=== PATIENT | female | born 1950 | race Hispanic/Latino ===

== ENCOUNTER 2017-09-08 09:49 | Observation (INO) | payer BC, OTHER ==
[2017-09-08 11:19] LABS: Absolute Lymphocytes (CBC) 2.1 K/uL (0.7-4.9); Absolute Neutrophil 6.5 K/uL (1.8-8.0); Basophils % 0.2 % (0-1.3); Lymphocytes % 21.9 % (15.3-44.8); MCV 90.3 fL (80-100); MPV 10.1 fL (7.6-11.3); Monocytes % 10.7 % (3.3-12.3); RBC Red Blood Cell Count 3.43 M/uL (3.86-4.86)
[2017-09-08 11:42] LABS: Albumin 3.1 g/dL (3.2-5.5); Bilirubin Total 0.3 mg/dL (0.3-1.2); Protein, Total 9.9 g/dL (6.0-8.3)
--- NOTE | 2017-09-08 13:27 | RAD REPORT ---
EXAM DESCRIPTION: CT - Abdomen Pelvis W Contrast - 09/08/2017 12:56 pm CLINICAL HISTORY: Abdominal pain. Right lower quadrant pain COMPARISON: June 2016 TECHNIQUE: Computed axial tomography of the abdomen and pelvis was obtained. 100 cc Isovue-300 is ad ministered intravenously. Oral contrast was given. All CT scans are performed using dose optimization technique as appropriate and may include automated exposure control or mA/KV adjustment according to patient size. FINDINGS: The liver, pancreas, adrenals and kidneys appear unremarkable. The spleen is small and partially calc ified perhaps secondary to an old infarction. The appendix is normal caliber. There is no evidence of diverticulitis. The gallbladder is borderline distended. A 55 millimeter mass has developed within the right iliac crest with bone destruction. The mass conta ins increased density IMPRESSION: 55 millimeter mass within the right iliac crest with bone destruction likely represents neoplasm. A much less likely consideration is that this represents a hematoma given the high density . However bony destruction would be quite unusual. MRI would be helpful for differentiation. Borderline gallbladder distention The exam was discussed with Dr. Clark
[2017-09-08] MEDS: NA CHLORIDE 0.9% 1,000 ML IV SCH (13:54)
[2017-09-08 16:18] LABS: Urine Appearance CLEAR; Urine Bilirubin NEGATIVE (NEG); Urine Blood 3+ (NEG); Urine Color YELLOW; Urine Glucose NEGATIVE (NEG); Urine Protein TRACE (NEG); Urine Specific Gravity >=1.030 (1.005-1.030); Urine Urobilinogen 0.2 mg/dL (0.2-1.0); Urine pH 5.5 (5.0-7.0)
[2017-09-08 16:21] LABS: Urine Microscopic Reflex ORDER UMIC
[2017-09-08 16:27] LABS: Urine Bacteria >50 /HPF (<20); Urine Culture Reflex Order REFLEXED
[2017-09-08] MEDS: HYDROCODONE/APAP 5/325 MG TAB PO PRN ×2 (16:30→22:06)
[2017-09-08] MEDS ORDERED: CIPROFLOXACIN HCL 500 MG TAB PO SCH (17:00)
--- NOTE | 2017-09-08 17:37 | RAD REPORT ---
EXAM DESCRIPTION: MRI - Pelvis W/Wo Cont - 09/08/2017 4:18 pm CLINICAL HISTORY: Pelvic mass COMPARISON: CT September 08, 2017 TECHNIQUE: Axial, sagittal, and coronal magnetic images of the pelvis was obtained. 14 cc MultiHance is administered intravenously. FINDINGS: A 57 millimeter enhancing mass is present within the right iliac crest destroyed bone. It has low to intermediate signal on T1 weighted sequences. Several small enhancing lesions are visualized within the femora, left acetabulum, right and left tiffanie ac bones and right pubic bone measuring less than 1 centimeter. IMPRESSION: 57 millimeter enhancing lesion within the right iliac crest destroying bone consistent w ith a metastasis. Additional smaller metastases are scattered within the pelvic bones and femora
[2017-09-08] MEDS ORDERED: Pharmacy Consult 1 EA XX PRN (19:47)
[2017-09-08] MEDS: CEFEPIME 2 GM VIAL IV SCH ×2 (20:00)
[2017-09-08] MEDS: VANCOMYCIN 1.25 GM in NA CHLORIDE 0.9% 250 ML IV SCH ×2 (20:00)
[2017-09-08] MEDS ORDERED: CEFEPIME 2 GM/200 ML BAG IV ONE (20:17)
--- NOTE | 2017-09-08 20:19 | RAD REPORT ---
EXAM DESCRIPTION: Jozef Christian (2 Views)09/08/2017 8:10 pm CLINICAL HISTORY: fever COMPARISON: June 2016 FINDINGS: The lungs appear clear of acute infiltrate. The heart is normal size IMPRESSION: No acute abnormalities displayed
[2017-09-08] MEDS ORDERED: VANCOMYCIN 1 GM/VIAL ONE (20:24)
[2017-09-08] MEDS ORDERED: NA CHLORIDE 0.9% 0 ML ONE (20:25)
[2017-09-08] MEDS ORDERED: VANCOMYCIN 500 MG/VIAL ONE (20:25)
[2017-09-08] MEDS ORDERED: NA CHLORIDE 0.9% 250 ML ONE (20:27)
[2017-09-08] MEDS ORDERED: ATORVASTATIN 80 MG TAB PO SCH (21:00)
[2017-09-09] MEDS: NA CHLORIDE 0.9% 1,000 ML IV SCH ×3 (04:10→21:42)
[2017-09-09] MEDS: PANTOPRAZOLE 40MG TABLET PO SCH (06:01)
[2017-09-09] MEDS: METOPROLOL XL 25 MG TAB PO SCH (06:01)
[2017-09-09] MEDS: HYDROCODONE/APAP 5/325 MG TAB PO PRN ×3 (06:03→18:50)
[2017-09-09] MEDS ORDERED: LOSARTAN POTASSIUM 50 MG TABLET PO SCH (09:00)
[2017-09-09] MEDS ORDERED: ASPIRIN EC 81 MG TAB PO SCH (09:00)
[2017-09-09] MEDS ORDERED: METOPROLOL XL 25 MG TAB PO SCH (09:00)
[2017-09-09] MEDS ORDERED: PNEUMOCOCCAL VACCINE 0.5 ML IMVAC ONE (09:00)
[2017-09-09] MEDS ORDERED: HOME MED 1 EA UNK (Lansoprazole [Prevacid] 30 MG) PO SCH (09:00)
[2017-09-09 09:05] LABS: Albumin 2.5 g/dL (3.2-5.5); Bilirubin Total 0.4 mg/dL (0.3-1.2); Potassium 3.6 mEq/L (3.6-5.0); Protein, Total 8.2 g/dL (6.0-8.3)
[2017-09-09] MEDS: PRASUGREL (EFFIENT) 10 MG TAB PO SCH (09:27)
[2017-09-09] MEDS: CEFEPIME/SWI 2gm 2 GM/20 ML SYR IV SCH (09:27)
[2017-09-09] MEDS: LOSARTAN POTASSIUM 50 MG TABLET PO SCH (09:28)
[2017-09-09] MEDS: ASPIRIN EC 81 MG TAB PO SCH (09:28)
[2017-09-09] MEDS: ATORVASTATIN 80 MG TAB PO SCH (09:29)
--- NOTE | 2017-09-09 13:46 | P.CNS ---
Date of Consult: 09/09/17 (Hematology/Oncology) REASON for consultation: right iliac crest mass. HPI: Pt seen today at 12 noon today. Family at bedside. Pt is a pleasant 67 yr old woman presented with worsening right hip pain. She reports gradually worsening right hip pain atleast for 3-4 weeks now, 9/10 in intensity when severe with difficulty ambulating. She reports some 10lb weight loss though intentional in the past 2 months. No fevers, chills, night sweats other than the episode of fever this week that had brought her to the ER. Mild fatigue which she feels appropriate for age. Denies any headaches, blurred vision, imbalance, neuropathy, chest pains, sob, cough, abd pain, nausea, vomiting, diarrhea. H/o chronic constipation with BM usually every other day. Former extensive smoker of about 1ppd for more than 40 years, quit 3 years ago. In the ER, CT revealed a destructive right iliac mass which was confirmed by a pelvic MRI. Additional lesions scattered in the pelvis and femurs. She feels much better with analgesia since admission. She seems to have been febrile, some positive UA as well and currently receiving antibiotics. A 14 point ROS was done and pertinent points as in HPI. PMH/ PSH: CAD s/p PCI on ASA and effient; HTN, Gastritis, meningitis, TIA, HLD. Recent mammogram 03/2017 benign. SH: Ex smoker Denies alcohol or drugs. 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 FH: Dad had colon cancer. H/o ? tubular adenoma in patient. Gets colonoscopy as per GI discretion for surveillance. EXAM: Vitas reviewed; hemodynamically stable General: Alert, mild distress on hip movement, Oriented x3; ECOG 1 HEENT: Atraumatic, Normocephalic, no pallor, no icterus, mmm Neck: Supple, no bruit, JVD not distended, No thyromegaly Respiratory: good air entry, clear to auscultation Cardiovascular: Regular rate/rhythm, Normal S1 S2, No murmurs Gastrointestinal: Normal bowel sounds, Soft and benign, Non-distended, No ascites Musculoskeletal: right hip tenderness, range of movements slightly diminishes. SLR>45 Integumentary/ nails: No rashes, no clubbing Neurological: slow cautious gait, Normal speech, Normal strength at 5/5, Normal tone, Sensation intact. Lymphatics: No axilla or inguinal lymphadenopathy. LABS reviewed. Hb ; MCV 90 WBC 9.6; left shift plt 259 Bun/cr 24/1.9 ca 9.2 TP 8.2/ Alb 2.5/ Odalis 5.7 ESR 145/ CRP 175 LDH 113 PT 14/ PTT 42/ INR 1.3 Imaging reviewed. ASSESSMENT/ RECOMMENDATIONS: 67 year old woman with right hip pain found to have a 57mm right iliac crest mass and other scattered lesions in the pelvis and femora. 1. Right iliac crest mass: Mass suspicious for malignancy which warrants further evaluation with biopsy for pathology. Possible differentials include metastasis from unknown primary, myeloma, sarcoma. Noted some hypergammaglobinemia, anemia, hyponatremia. She will need to complete staging imaging with CT chest given extensive smoking history, however can be done in next few days (IV contrast exposure for 2 procedures yesterday). Other pertinent imaging will be done as per etiology. SPEP, Qig, Serum free light chains pending. Will follow up. Will discuss with Radiology for adequate biopsy from the iliac crest mass. May need holding effient +/- ASA as per IR discretion. Pt advised to consult with her development disability specialist for the same. Further treatment recommendations, prognosis will be discussed as per biopsy results. 2. Right hip pain: controlled with Hydrocodone/ APAP and ambulating well. She was advised to take 5/325mg PO Q4-6 hrs prn pain. Educate on constipation/ resp depression risks. 3. UTI/ fevers: Follow up blood and urine cultures. Currently on antibiotics. Management as per primary team. She was advised to follow up with me as outpatient at the Cancer center on Monday09/13/17 as per her request (as she needs to attend her brother's on Monday). Plan D/w Dr Clark and house staff.
[2017-09-09 14:49] LABS: C-Reactive Protein 175.5 mg/L (<10.0)
[2017-09-09] MEDS: ENOXAPARIN 30 MG/0.3 ML SQ SCH (15:00)
[2017-09-09] MEDS ORDERED: BISACODYL 10 MG RECTAL SUPP PR PRN (17:36)
--- NOTE | 2017-09-09 18:13 | HP ---
Date of Admission: 09/08/2017 Chief Complaint: Right lower quadrant pain. History Of Present Illness: A 67-year-old female has been having intermittent right lower abdominal pain. Outpatient ultrasound was done, it was not indicative of any pathology. She has been seeing [facility]. For her abdominal pain, she was referred back for more testing. However, she started havin g fever. At this point, I asked her to come and get admitted. However, she came the next day, at wh ich point, she still had pain. There was no fever. However, in view of fever, acute illness was martha pected and the patient is admitted for observation. The patient denied any history of blood in the s tools. No history of vomiting. Past Medical History: Includes history of hypertension, hyperlipidemia, history of COPD, gastritis. Family History: Colon cancer present. History of heart disease and dementia present. Allergies: NONE. Home Medicines: Please refer to the chart. Review of Systems: No chest pain or shortness of breath. Physical Examination: General: Revealed a 67-year-old female, comfortable at rest HEENT: Negative. Neck: Supple. JVD negative. Chest: Scattered wheezes. Heart: Regular. Abdomen: Tender right lower quadrant. No palpable mass. Extremities: No edema. Laboratory Data: White count normal, hemoglobin low at 10.3, normal platelet count. Chemistry profi le; sodium 129, creatinine 1.1. Total protein 9.9, globulin 6.8. Chest x-ray negative. CAT scan, MRI of the abdomen showed mass with destruction of the pelvic bone, with multiple areas of lytic lesions. Assessment: 1.Probable metastatic disease versus myeloma. 2.Anemia, probably related to above. 3.Known coronary artery disease. 4.Hypertension. 5.Hyperlipidemia. 6.History of COPD. Plan: The patient is being hydrated and because of temperature of 101 last night, the patient is sta rted on vancomycin and cefepime. She does not look septic. So, pending the blood cultures, this leidy l be continued. The fever may even be coming from the tumor mass. Oncology consult has been done. JASON/JOSEF Voice ID: [id number]
[2017-09-09] MEDS: DOCUSATE NA 100 MG CAP PO SCH (21:40)
[2017-09-10] MEDS: HYDROCODONE/APAP 5/325 MG TAB PO PRN ×2 (03:56→10:29)
[2017-09-10] MEDS: METOPROLOL XL 25 MG TAB PO SCH (05:49)
[2017-09-10] MEDS: PANTOPRAZOLE 40MG TABLET PO SCH (05:49)
[2017-09-10] MEDS: DOCUSATE NA 100 MG CAP PO SCH (08:27)
[2017-09-10] MEDS: CEFEPIME/SWI 2gm 2 GM/20 ML SYR IV SCH (08:27)
[2017-09-10] MEDS: LOSARTAN POTASSIUM 50 MG TABLET PO SCH (08:27)
[2017-09-10] MEDS: PRASUGREL (EFFIENT) 10 MG TAB PO SCH (08:27)
[2017-09-10] MEDS: ATORVASTATIN 80 MG TAB PO SCH (08:27)
[2017-09-10] MEDS: ASPIRIN EC 81 MG TAB PO SCH (08:27)
[2017-09-10] MEDS: ENOXAPARIN 30 MG/0.3 ML SQ SCH (08:27)
[2017-09-10] MEDS: VANCOMYCIN 1.25 GM in NA CHLORIDE 0.9% 250 ML IV SCH (08:28)
[2017-09-12 22:41] LABS: Albumin, (SPE) 3.6 g/dL (3.8-4.8); Alpha-1-Globulins 0.6 g/dL (0.2-0.3); Alpha-2-Globulins 1.6 g/dL (0.5-0.9); Gamma Globulins 3.1 g/dL (0.8-1.7); INTERPRETATION REPORT
--- NOTE | 2017-09-17 18:31 | DS ---
Date of Discharge: 09/10/2017 Final Diagnoses: 1.Metastatic tumor, pelvic bone. 2.Anemia. 3.Hypertension. 4.Hyperlipidemia. 5.History of coronary artery disease. Hospital Course: This patient was admitted because of right lower quadrant pain and evidence of mass on the CAT scan. The patient after admission to the hospital also had MRI, which confirmed the mass as well as multiple lytic lesions. At this point, Hematology and Oncology Service was consulted. A s the patient was stable, it was advised that the patient could be having a biopsy done as an outpati ent. At this point, the patient also was found to have evidence of urinary tract infection. This wa s treated with discharge medications of Cipro. Laboratory Data At Admission: Hemoglobin 10.3, sodium 129, globulin 6.8, total protein 9.9. JASON/JOSEF Voice ID: [id number] Report ID: [id number]
[2017-09-20 10:46] LABS: Immunoglobulin A 72 (L); Immunoglobulin G 1184
[2017-09-20 10:49] LABS: Immunoglobulin M 29 (L)
== END 2017-09-10 13:13 | disposition home or self-care (01) ==
LOC: 2ND 10:00 → INTOOBSV 10:00
PROVIDERS: ADMIT Internal Medicine; ATTEND Internal Medicine
DX: C79.51 Secondary malignant neoplasm of bone (principal); N39.0 Urinary tract infection, site not specified; D64.9 Anemia, unspecified; I10 Essential (primary) hypertension; E78.5 Hyperlipidemia, unspecified; I25.10 Atherosclerotic heart disease of native coronary artery without angina pectoris; J44.9 Chronic obstructive pulmonary disease, unspecified
CPT/HCPCS: 36415; 71046; 72197; 74177; 80053; 81003; 81015; 82232; 82784; 83615; 84165; 85025; 85652; 86140; 86334; 87040; 87077; 87086; 87088; 87186; A9577; G0378; J0692; J1650; J7030; Q9967

== ENCOUNTER 2017-09-20 09:26 | Day surgery (SDC) | payer BC, OTHER ==
[2017-09-20] MEDS ORDERED: NA CHLORIDE 0.9% 1,000 ML ONE (10:29)
[2017-09-20] MEDS ORDERED: FENTANYL CITR 100 MCG/2 ML ONE (10:34)
[2017-09-20] MEDS ORDERED: MIDAZOLAM HCL 2 MG/2 ML INJ ONE (10:34)
[2017-09-20] MEDS ORDERED: NALOXONE 0.4 MG/ML VIAL ONE (10:35)
[2017-09-20] MEDS ORDERED: FLUMAZENIL 0.1 MG/ML (5 mL VIAL) IV ONE (10:35)
[2017-09-20 10:37] LABS: Protime INR 1.28
--- NOTE | 2017-09-20 12:32 | RAD REPORT ---
EXAM DESCRIPTION: CT - Muscle/Soft Bx - 09/20/2017 12:05 pm CLINICAL HISTORY: Right iliac crest 5.5 centimeter soft tissue mass with bone destruction COMPARISON: MRI pelvis September 08, 2017, CT abdomen and pelvis September 08, 2017 TECHNIQUE: The procedure, risks and alternatives were discussed with the patient in detail. After an swering all questions, both oral and written consent were obtained. A time-out procedure was performe d prior to biopsy or medication administration. IV access and physiologic monitors were in place. Preliminary imaging again identified the large bone destructive mass filling and expanding the latera l aspect of the right iliac crest. The mass is not substantially different from September 08 imaging. Right lateral access site was selected. The patient was pre-medicated with Versed said 1.0 milligrams IV and fentanyl 100 micrograms IV. Access site was prepped and draped in the usual sterile fashion. Skin and deeper tissues were anesthetized with 1% lidocaine. Utilizing CT guidance a 5 centimeter introducer needle was advanced. Tip was seen to penetrate the la teral margin of the mass. An 18 gauge needle was advanced through the introducer needle. A total of f our 2 centimeter long core biopsies were obtained. Cores were confirmed to have been obtained within the substance of the mass. All obtained material was given to pathology for histologic assessment. Ne edle was withdrawn and direct pressure applied to the puncture site. Sterile bandage was placed. Post biopsy imaging showed no measurable hematoma. Patient vital signs were stable throughout the procedure. There were no immediate complications. Ana ent was transferred back to same-day surgery for post biopsy monitoring. Conscious sedation time was 45 minutes. IMPRESSION: Successful CT-guided biopsy of the larger right iliac mass. All biopsy material was sarah ined for histologic assessment. No immediate complications.
== END 2017-09-20 14:50 | disposition home or self-care (01) ==
LOC: DS 09:26
PROVIDERS: ATTEND Internal Medicine
PROC: 0QB23ZX Excision of Right Pelvic Bone, Percutaneous Approach, Diagnostic (ICD-10-PCS; principal; 2017-09-20)
DX: C90.30 Solitary plasmacytoma not having achieved remission (principal); R19.07 Generalized intra-abdominal and pelvic swelling, mass and lump; C78.00 Secondary malignant neoplasm of unspecified lung
CPT/HCPCS: 20206; 36415; 85610; 85730; 88305; J2250; J2310; J3010; J7030

== ENCOUNTER 2018-01-20 15:52 | Emergency (ER) | payer BC, OTHER ==
[2018-01-20 16:40] LABS: Protime INR 1.13
[2018-01-20 16:46] LABS: Albumin 3.3 g/dL (3.4-5.0); Bilirubin Direct 0.1 mg/dL (0-0.2); Bilirubin Total 0.5 mg/dL (0.2-1.0); Magnesium 2.3 mg/dL (1.8-2.4); Potassium 3.6 mmol/L (3.5-5.1); Protein, Total 5.8 g/dL (6.4-8.2); Troponin (Emerg Dept Use Only) 0.02 ng/mL (0.0-0.045)
[2018-01-20 16:54] LABS: Absolute Lymphocytes (CBC) 1.2 K/uL (0.7-4.9); Absolute Monocytes 0.7 K/uL (0.1-1.3); Absolute Neutrophil 2.4 K/uL (1.8-8.0); Basophils % 0.3 % (0-1.3); Eosinophils % 11.9 % (0-4.4); Lymphocytes % 24.6 % (15.3-44.8); MCV 101.8 fL (80-100); MPV 13.9 fL (7.6-11.3); RBC Red Blood Cell Count 3.25 M/uL (3.86-4.86)
--- NOTE | 2018-01-20 16:58 | RAD REPORT ---
EXAM DESCRIPTION: US - Extrem Venous W Compress Lexx - 01/20/2018 4:52 pm CLINICAL HISTORY: Leg pain and swelling COMPARISON: None. TECHNIQUE: Real-time sonographic evaluation of the bilateral lower extremity common femoral, superfi cial femoral, popliteal and posterior tibial veins was performed. FINDINGS: Normal compressibility, flow augmentation, phasic flow and spontaneous flow are identified in the left and right lower extremity common femoral, superficial femoral, popliteal and posterior t ibial veins. No intraluminal filling defects seen. IMPRESSION: No DVT in either lower extremity.
--- NOTE | 2018-01-20 18:01 | RAD REPORT ---
EXAM DESCRIPTION: RAD - Chest Single View - 01/20/2018 5:12 pm CLINICAL HISTORY: Leg pain, shortness of breath COMPARISON: September 08 TECHNIQUE: AP portable chest image was obtained 1658 hours . FINDINGS: Lungs are clear. Heart and vasculature are normal. No measurable pleural effusion and no p neumothorax. No acute bony abnormality seen. Old rib trauma noted on the left. No acute aortic findin g. IMPRESSION: No acute cardiopulmonary process.
--- NOTE | 2018-01-20 18:01 | RAD REPORT ---
EXAM DESCRIPTION: CT - Chest For Pe Angio - 01/20/2018 5:38 pm CLINICAL HISTORY: Shortness of breath, cancer history COMPARISON: Chest films same date TECHNIQUE: Dynamically enhanced 3 mm thick images of the chest were obtained during administration o f approximately 150mL Isovue 370 IV contrast. Coronal and oblique MIP reconstruction images were gene rated and reviewed. Exam utilizes a protocol to evaluate the pulmonary arterial tree. All CT scans are performed using dose optimization technique as appropriate and may include automated exposure control or mA/KV adjustment according to patient size. FINDINGS: No pulmonary emboli are identified. The aorta as imaged shows no acute or suspicious finding. Heart size upper normal. No pericardial or effusion. No focal mass or consolidation. Slight motion accentuates lung markings. No pleural effusion or pleur al thickening. No mediastinal or hilar suspicious masses. No chest wall masses or abnormal axillary lymphadenopathy. IMPRESSION: No pulmonary emboli identified. No other significant or suspicious findings.
--- NOTE | 2018-01-20 18:10 | EDPHYS ---
Physician Documentation [facility] Name: Lindsey Peter Age: 67 yrs Sex: Female : 1950 Arrival Date: 01/20/2018 Time: 15:54 Bed 23 Private MD: ED Physician Rafa Gibson HPI: 01/20 16:05 This 67 yrs old Female presents to ER via Ambulatory with complaints of Feet jmm Swelling. 16:05 The patient presents with swelling. The complaints affect the right leg and left leg. jmm Onset: The symptoms/episode began/occurred gradually, 3 day(s) ago. Modifying factors: The symptoms are alleviated by nothing. the symptoms are aggravated by nothing. Associated signs and symptoms: Pertinent positives:. This is a 67 year old female with a history of Multiple myeloma presents to the ED with lower extremity swelling beginnning 3 days ago worse yesterday. Patient denies chest pain. Denies fever. Was advised by oncology to get US for concerns for DVT. . Historical: - Allergies: 15:57 No Known Allergies; la1 - PMHx: 15:57 High Cholesterol; Hypertension; meningitis; Myocardial infarction; Multiple Myeloma; la1 - Immunization history:: Adult Immunizations up to date. - Social history:: Smoking status: Patient/guardian denies using tobacco. - Ebola Screening: : No symptoms or risks identified at this time. ROS: 16:05 Constitutional: Negative for fever, chills, and weight loss, Cardiovascular: Negative jmm for chest pain, palpitations, and edema. 16:05 MS/extremity: Positive for swelling. 16:05 Neuro: Negative for weakness. 16:05 All other systems are negative. Exam: 16:05 Head/Face: atraumatic. Eyes: EOMI, no conjunctival erythema appreciated ENT: Moist jmm Mucus Membranes Neck: Trachea midline, Supple Chest/axilla: Normal chest wall appearance and motion. Cardiovascular: Regular rate and rhythm. No edema appreciated Respiratory: Normal respirations, no respiratory distress appreciated 16:05 Constitutional: The patient appears in no acute distress, alert, awake. 16:05 Musculoskeletal/extremity: bilateral pedal edema noted, full dorsalis pedis pulse noted, no erythema appreciated, NVI. 16:05 Skin: Appearance: Color: normal in color. 16:05 Neuro: Orientation: is normal, Mentation: is normal, Memory: is normal. 16:05 Psych: Behavior/mood is pleasant, cooperative. Vital Signs: 15:57 Pulse 60; Resp 16; Temp 97.8; Pulse Ox 98% on R/A; Weight 61.23 kg; Height 5 ft. 1 in. la1 (154.94 cm); 15:58 BP 177 / 56; la1 16:16 BP 145 / 50; Pulse 52; Resp 18; Pulse Ox 97% ; tl3 17:20 BP 157 / 53; Pulse 58; Resp 18; Pulse Ox 98% on R/A; tl3 18:45 BP 146 / 50; Pulse 50; Resp 18; Pulse Ox 100% on R/A; tl3 15:57 Body Mass Index 25.51 (61.23 kg, 154.94 cm) la1 MDM: 16:05 Patient medically screened. [facility] 17:08 Data reviewed: vital signs, nurses notes. [facility] 18:05 Data reviewed: lab test result(s), radiologic studies, CT scan, plain films. [facility] Counseling: I had a detailed discussion with the patient and/or guardian regarding: the historical points, exam findings, and any diagnostic results supporting the discharge/admit diagnosis, radiology results, the need for outpatient follow up, to return to the emergency department if symptoms worsen or persist or if there are any questions or concerns that arise at home. 01/20 16:14 Order name: Basic Metabolic Panel; Complete Time: 16:56 [facility] 01/20 16:14 Order name: CBC with Diff; Complete Time: 16:56 [facility] 01/20 16:14 Order name: LFT's; Complete Time: 16:56 [facility] 01/20 16:14 Order name: Magnesium; Complete Time: 16:56 [facility] 01/20 16:14 Order name: NT PRO-BNP; Complete Time: 16:56 [facility] 01/20 16:14 Order name: PT-INR; Complete Time: 16:56 [facility] 01/20 16:14 Order name: Troponin (emerg Dept Use Only); Complete Time: 16:56 [facility] 01/20 16:14 Order name: XRAY Chest (1 view); Complete Time: 18:02 [facility] 01/20 16:14 Order name: EKG; Complete Time: 16:15 [facility] 01/20 16:14 Order name: Cardiac monitoring; Complete Time: 16:25 [facility] 01/20 16:14 Order name: EKG - Nurse/Tech; Complete Time: 16:55 [facility] 01/20 16:14 Order name: IV Saline Lock; Complete Time: 16:25 [facility] 01/20 16:14 Order name: US Extremity Venous W Compression Lexx; Complete Time: 17:09 [facility] 01/20 17:21 Order name: CT Chest For PE Angio; Complete Time: 18:02 [facility] 01/20 16:14 Order name: Labs collected and sent; Complete Time: 16:25 [facility] 01/20 16:14 Order name: O2 Per Protocol; Complete Time: 16:25 [facility] 01/20 16:14 Order name: O2 Sat Monitoring; Complete Time: 16:25 [facility] Administered Medications: No medications were administered Disposition: 01/20/18 18:09 Discharged to Home. Impression: Edema, unspecified. - Condition is Stable. - Discharge Instructions: Peripheral Edema. - Medication Reconciliation Form, Thank You Letter, Antibiotic Education, Prescription Opioid Use form. - Follow up: Private Physician; When: 2 - 3 days; Reason: Recheck today's complaints, Continuance of care, Re-evaluation by your physician. Addendum: 01/22/2018 07:18 Co-signature as Attending Physician, Rafa Gibson MD I agree with the assessment and c coppola plan of care. Signatures: Dispatcher [employer] Rafa Blanchard MD MD cha Mickail, Joel, PA PA Aquiles Atwood RN RN la1 Rajani Rader, RN RN tl3 Corrections: (The following items were deleted from the chart) 01/20 19:08 18:09 01/20/2018 18:09 Discharged to Home. Impression: Edema, unspecified. Condition is tl3 Stable. Forms are Medication Reconciliation Form, Thank You Letter, Antibiotic Education, Prescription Opioid Use. Follow up: Private Physician; When: 2 - 3 days; Reason: Recheck today's complaints, Continuance of care, Re-evaluation by your physician. [facility]
--- NOTE | 2018-01-20 18:10 | ER ---
Nurse's Notes [facility] Name: Lindsey Peter Age: 67 yrs Sex: Female : 1950 Arrival Date: 01/20/2018 Time: 15:54 Bed 23 Private MD: Diagnosis: Edema, unspecified Presentation: 01/20 15:56 Presenting complaint: Patient states: I am a cancer patient and have been having la1 swelling in both of my lower legs for 3 days and my cancer doctor told me to come in. Transition of care: patient was not received from another setting of care. Onset of symptoms was January 20, 2018. Risk Assessment: Do you want to hurt yourself or someone else? Patient reports no desire to harm self or others. Initial Sepsis Screen: Does the patient meet any 2 criteria? No. Patient's initial sepsis screen is negative. Does the patient have a suspected source of infection? No. Patient's initial sepsis screen is negative. Care prior to arrival: None. 15:56 Method Of Arrival: Ambulatory la1 15:56 Acuity: IVANA 3 la1 Historical: - Allergies: 15:57 No Known Allergies; la1 - PMHx: 15:57 High Cholesterol; Hypertension; meningitis; Myocardial infarction; Multiple Myeloma; la1 - Immunization history:: Adult Immunizations up to date. - Social history:: Smoking status: Patient/guardian denies using tobacco. - Ebola Screening: : No symptoms or risks identified at this time. Screenin:16 Abuse screen: Denies threats or abuse. Nutritional screening: No deficits noted. tl3 Tuberculosis screening: No symptoms or risk factors identified. Fall Risk None identified. Assessment: 16:16 General: Appears in no apparent distress. uncomfortable, slender, well groomed, well tl3 developed, well nourished, Behavior is calm, cooperative, appropriate for age. Pain:. Neuro: Level of Consciousness is awake, alert, obeys commands, Oriented to person, place, time, situation, Appropriate for age. Cardiovascular: Reports bilateral swelling to ankles and lower legs since for the last three days Patient's skin is warm and dry. Respiratory: Reports shortness of breath only slightly while lying flat and talking on the phone with her daughter Airway is patent Respiratory effort is even, unlabored, Respiratory pattern is regular, symmetrical, Breath sounds are clear bilaterally. GI: No deficits noted. No signs and/or symptoms were reported involving the gastrointestinal system. : No deficits noted. No signs and/or symptoms were reported regarding the genitourinary system. EENT: No deficits noted. No signs and/or symptoms were reported regarding the EENT system. Derm: No deficits noted. No signs and/or symptoms reported regarding the dermatologic system. Musculoskeletal: No deficits noted. No signs and/or symptoms reported regarding the musculoskeletal system. 17:20 Reassessment: Patient appears in no apparent distress at this time. No changes from tl3 previously documented assessment. Patient and/or family updated on plan of care and expected duration. Pain level reassessed. Patient is alert, oriented x 3, equal unlabored respirations, skin warm/dry/pink. 18:45 Reassessment: Patient appears in no apparent distress at this time. No changes from tl3 previously documented assessment. Patient and/or family updated on plan of care and expected duration. Pain level reassessed. Patient is alert, oriented x 3, equal unlabored respirations, skin warm/dry/pink. Vital Signs: 15:57 Pulse 60; Resp 16; Temp 97.8; Pulse Ox 98% on R/A; Weight 61.23 kg; Height 5 ft. 1 in. la1 (154.94 cm); 15:58 BP 177 / 56; la1 16:16 BP 145 / 50; Pulse 52; Resp 18; Pulse Ox 97% ; tl3 17:20 BP 157 / 53; Pulse 58; Resp 18; Pulse Ox 98% on R/A; tl3 18:45 BP 146 / 50; Pulse 50; Resp 18; Pulse Ox 100% on R/A; tl3 15:57 Body Mass Index 25.51 (61.23 kg, 154.94 cm) la1 ED Course: 15:54 Patient arrived in ED. tw3 15:57 Triage completed. la1 15:57 Arm band placed on right wrist. la1 16:02 Johnson Rios PA is PHCP. [facility] 16:02 Rafa Gibson MD is Attending Physician. [facility] 16:15 Rajani Rader, FLORES is Primary Nurse. tl3 16:16 Patient has correct armband on for positive identification. Bed in low position. Call tl3 light in reach. Side rails up X 1. Adult w/ patient. Pulse ox on. NIBP on. Door closed. Warm blanket given. Pillow given. 16:16 No provider procedures requiring assistance completed. Initial lab(s) drawn, by oh, tl3 sent to lab. Inserted saline lock: 20 gauge in right antecubital area, using aseptic technique. Blood collected. 16:43 US Extremity Venous W Compression Lexx Sent. tl3 16:50 Ultrasound completed. Patient tolerated well. Notified ED Physician johnson . sg3 16:50 US Extremity Venous W Compression Lexx In Process Unspecified. EDMS 16:54 EKG done, by ED staff, reviewed by Johnson LAM. jb1 17:13 XRAY Chest (1 view) In Process Unspecified. EDMS 17:33 CT completed. Patient moved to CT via stretcher. Patient moved back from CT. cw1 17:38 CT Chest For PE Angio In Process Unspecified. EDMS 18:45 IV discontinued, intact, bleeding controlled, No redness/swelling at site. Pressure tl3 dressing applied. Administered Medications: No medications were administered Outcome: 18:09 Discharge ordered by . kimberly 18:45 Discharged to home ambulatory. tl3 18:45 Condition: good 18:45 Discharge instructions given to patient, Instructed on discharge instructions, follow up and referral plans. Demonstrated understanding of instructions, follow-up care. 19:08 Patient left the ED. tl3 Signatures: Dispatcher [employer] EDBentley Cardenas jb1 Johnson Rios PA PA jmm Woodley, Crystal cw1 Aquiles Alvarez, RN RN la1 Susanna Avila Sarah sg3 Rajani Rader, RN RN tl3
--- NOTE | 2018-01-22 10:13 | EKG ---
Test Date: 2018-01-20 Test Time: 16:52:25 [employer]: TREVER MEASUREMENT RESULTS: Intervals: Rate: 48 VT: 162 QRSD: 98 QT: 494 QTc: 441 [place]: P: 45 VT: 162 QRS: 61 T: 57 INTERPRETIVE STATEMENTS: Marked sinus bradycardia Abnormal ECG Compared to ECG 06/11/2016 05:27:56 Sinus rhythm no longer present ST (T wave) deviation no longer present Electronically Signed On 01-22-18 10:12:50 CDT by Allan Mullins
== END 2018-01-20 19:08 | disposition home or self-care (01) ==
LOC: ER 15:52
DX: R60.0 Localized edema (principal); I10 Essential (primary) hypertension; Z85.79 Personal history of other malignant neoplasms of lymphoid, hematopoietic and related tissues
CPT/HCPCS: 36415; 71045; 71275; 80048; 80076; 83735; 83880; 84484; 85025; 85610; 93005; 93970; 99284; Q9967

== ENCOUNTER 2019-04-27 17:42 | Emergency (ER) | payer OTHER ==
[2019-04-27 18:52] LABS: Absolute Lymphocytes (CBC) 1.3 K/uL (0.7-4.9); Basophils % 0.5 % (0-1.3); Lymphocytes % 21.4 % (15.3-44.8); RBC Red Blood Cell Count 3.88 M/uL (3.86-4.86)
[2019-04-27 19:08] LABS: Albumin 3.8 g/dL (3.4-5.0); Bilirubin Total 0.5 mg/dL (0.2-1.0); Potassium 3.7 mmol/L (3.5-5.1); Protein, Total 7.6 g/dL (6.4-8.2)
[2019-04-27] MEDS ORDERED: NA CHLORIDE 0.9% 2,000 ML ONE (19:09)
[2019-04-27] MEDS ORDERED: CEFTRIAXONE/SWI 1gm 1 GM/10 ML SYR ONE (19:09)
[2019-04-27 19:38] LABS: Urine Bacteria <20 /HPF (<20)
--- NOTE | 2019-04-27 19:40 | RAD REPORT ---
EXAM DESCRIPTION: Jozef Christian (2 Views)04/27/2019 7:04 pm CLINICAL HISTORY: fever COMPARISON: 2018 FINDINGS: The lungs appear clear of acute infiltrate. The heart is normal size Old rib fractures IMPRESSION: No acute abnormalities displayed
[2019-04-27] MEDS ORDERED: ACETAMINOPHEN 325 MG TABLET ONE (20:14)
--- NOTE | 2019-04-27 20:24 | ER ---
Nurse's Notes [facility] Name: Lindsey Peter Age: 68 yrs Sex: Female : 1950 Arrival Date: 04/27/2019 Time: 17:47 Bed 26 Private MD: Diagnosis: Acute pharyngitis Presentation: 04/27 18:25 Presenting complaint: Patient states: Fever, sore throat and cough since last night. aj1 Transition of care: patient was not received from another setting of care. Onset of symptoms was 2019. Risk Assessment: Do you want to hurt yourself or someone else? Patient reports no desire to harm self or others. Initial Sepsis Screen: Does the patient meet any 2 criteria? Temp <36.0*C (96.8*F)) or > 38.3*C (100.9*F). HR > 90 bpm. Yes Does the patient have a suspected source of infection? Yes: Productive cough/pneumonia If YES to both, name of provider notified: Rishi LAM. Care prior to arrival: None. 18:25 Method Of Arrival: Ambulatory aj1 18:25 Acuity: IVANA 2 aj1 Triage Assessment: 18:27 General: Appears in no apparent distress. comfortable, Behavior is calm, cooperative, aj1 appropriate for age. Pain: Denies pain. Historical: - Allergies: 18:27 No Known Allergies; aj1 - Home Meds: 18:27 atorvastatin 80 mg Oral tab 1 tab once daily [Active]; aspirin 81 mg Oral chew 1 tab aj1 once daily [Active]; Revlimid oral oral [Active]; - PMHx: 18:27 High Cholesterol; Hypertension; meningitis; multiple myeloma; Myocardial infarction; aj1 CVA; - Immunization history:: Flu vaccine is not up to date. - Social history:: Smoking status: Patient/guardian denies using tobacco. - Ebola Screening: : Patient denies travel to an Ebola-affected area in the 21 days before illness onset. Screenin:28 Abuse screen: Denies threats or abuse. Denies injuries from another. Nutritional aj1 screening: No deficits noted. Tuberculosis screening: No symptoms or risk factors identified. 21:10 Fall Risk None identified. aj1 Assessment: 18:28 General: Appears in no apparent distress. comfortable, Behavior is calm, cooperative, aj1 appropriate for age. Pain: Denies pain. Neuro: Level of Consciousness is awake, alert, obeys commands, Oriented to person, place, time, situation. Cardiovascular: Patient's skin is warm and dry. Respiratory: Reports cough that is hacking, persistent Airway is patent Respiratory effort is even, unlabored, Respiratory pattern is regular, symmetrical. GI: No signs and/or symptoms were reported involving the gastrointestinal system. : No signs and/or symptoms were reported regarding the genitourinary system. EENT: Reports nasal congestion nasal discharge sore throat. Derm: No signs and/or symptoms reported regarding the dermatologic system. Skin is pink, warm \T\ dry. normal. Musculoskeletal: No signs and/or symptoms reported regarding the musculoskeletal system. Circulation, motion, and sensation intact. 19:30 Reassessment: Patient appears in no apparent distress at this time. No changes from aj1 previously documented assessment. Patient and/or family updated on plan of care and expected duration. Pain level reassessed. Patient is alert, oriented x 3, equal unlabored respirations, skin warm/dry/pink. 20:30 Reassessment: Patient appears in no apparent distress at this time. No changes from aj1 previously documented assessment. Patient and/or family updated on plan of care and expected duration. Pain level reassessed. Patient is alert, oriented x 3, equal unlabored respirations, skin warm/dry/pink. Vital Signs: 18:27 BP 166 / 66; Pulse 92; Resp 18; Temp 102.4(O); Pulse Ox 99% on R/A; Weight 60.78 kg [facility] (R); Height 5 ft. 1 in. (154.94 cm) (R); Pain 0/10; 19:18 BP 154 / 61; Pulse 79; Resp 16; Temp 103.1(O); Pulse Ox 100% ; lt1 21:10 BP 157 / 65; Pulse 78; Resp 18; Temp 100.9; Pulse Ox 100% on R/A; aj1 18:27 Body Mass Index 25.32 (60.78 kg, 154.94 cm) [facility] ED Course: 17:47 Patient arrived in ED. mr 18:06 Rishi Rios PA is PHCP. [facility] 18:06 Donna Fabian MD is Attending Physician. [facility] 18:20 Coby Baeza, RN is Primary Nurse. aj1 18:26 Triage completed. aj1 18:27 Arm band placed on Patient placed in an exam room. aj1 18:28 Patient has correct armband on for positive identification. aj1 18:28 No provider procedures requiring assistance completed. aj1 18:39 First set of blood cultures drawn by me. lt1 18:46 Initial lab(s) drawn, by me, sent to lab. Flu and/or RSV swab sent to lab. Strep swab lt1 sent to lab. Inserted saline lock: 22 gauge in right antecubital area, using aseptic technique. 18:46 Strep Sent. lt1 18:46 Flu Sent. lt1 18:47 Procalcitonin Sent. lt1 18:47 Lactate Sent. lt1 18:47 CMP Sent. lt1 18:47 CBC with Diff Sent. lt1 19:01 Chest Pa And Lat (2 Views) XRAY In Process Unspecified. EDMS 19:19 Blood Culture Adult (2) Sent. lt1 19:20 Urine Microscopic Only Sent. lt1 21:10 IV discontinued, intact, bleeding controlled, No redness/swelling at site. Pressure aj1 dressing applied. Administered Medications: 19:09 Drug: NS 0.9% (30 ml/kg) 30 ml/kg Route: IV; Rate: bolus; Site: right antecubital; aj1 21:11 Follow up: IV Status: Completed infusion; IV Intake: 1000ml aj1 19:19 Drug: Rocephin 1 grams Route: IV; Rate: calculated rate; Site: right antecubital; aj1 20:17 Drug: Tylenol 650 mg Route: PO; aj1 21:11 Follow up: Response: No adverse reaction aj1 Intake: 21:11 IV: 1000ml; Total: 1000ml. aj Outcome: 20:23 Discharge ordered by . [facility] 21:11 Discharged to home ambulatory. aj1 21:11 Condition: good 21:11 Discharge instructions given to patient, Instructed on discharge instructions, follow up and referral plans. medication usage, Demonstrated understanding of instructions, follow-up care, medications, Prescriptions given X 1. 21:11 Patient left the ED. aj1 Addendum: 04/30/2019 16:36 Addendum: Culture Results: Positive urine culture. Phone call Attempt #1 Pt states a a5 symptoms have improved, denies urinary symptoms, verbalizes understanding to follow-up with PCP. Signatures: Dispatcher [employer] Coby Hilton RN RN aj1 Rishi Rios PA PA jmm Rivera, Mary mr Calderon, Audri RN RN aa5 Beatris Bradford 1 Corrections: (The following items were deleted from the chart) 04/27 18:59 18:25 Acuity: IVANA 3 aj1 aj1
--- NOTE | 2019-04-27 20:24 | EDPHYS ---
[facility] Name: Lindsey Peter Age: 68 yrs Sex: Female : 1950 Arrival Date: 04/27/2019 Time: 17:47 Bed 26 Private MD: ED Physician Donna Fabian HPI: 04/27 18:23 This 68 yrs old Female presents to ER via Unassigned with complaints of Flu jmm Symptoms. 18:23 The patient or guardian reports cough, flu symptoms. Onset: The symptoms/episode jmm began/occurred gradually, 1 day(s) ago. Modifying factors: The symptoms are alleviated by nothing. the symptoms are aggravated by nothing. Associated signs and symptoms: Pertinent positives: fever, sore throat. This is a 68 year old female with a history of multiple myeloma that presents to the ED with complaints of low grade fever, sore throat beginning yesterday. Patient states she was recently exposed to the flu. Patient currently takes oral chemotherapeutics. . Historical: - Allergies: 18:27 No Known Allergies; aj1 - Home Meds: 18:27 atorvastatin 80 mg Oral tab 1 tab once daily [Active]; aspirin 81 mg Oral chew 1 tab aj1 once daily [Active]; Revlimid oral oral [Active]; - PMHx: 18:27 High Cholesterol; Hypertension; meningitis; multiple myeloma; Myocardial infarction; aj1 CVA; - Immunization history:: Flu vaccine is not up to date. - Social history:: Smoking status: Patient/guardian denies using tobacco. - Ebola Screening: : Patient denies travel to an Ebola-affected area in the 21 days before illness onset. ROS: 18:23 Constitutional: Positive for body aches, fever. jmm 18:23 ENT: Positive for sore throat. 18:23 Respiratory: Positive for cough. 18:23 All other systems are negative. Exam: 18:23 Constitutional: This is a well developed, well nourished patient who is awake, alert, jmm and in no acute distress. Head/Face: atraumatic. Eyes: EOMI, no conjunctival erythema appreciated 18:23 Neck: Trachea midline, Supple Chest/axilla: Normal chest wall appearance and motion. Cardiovascular: Regular rate and rhythm. No edema appreciated Respiratory: Normal respirations, no respiratory distress appreciated Abdomen/GI: Non distended, soft Back: Normal ROM Skin: General appearance color normal MS/ Extremity: Moves all extremities, no obvious deformities appreciated, no edema noted to the lower extremities Neuro: Awake and alert, normal gait Psych: Behavior is normal, Mood is normal, Patient is cooperative and pleasant 18:23 ENT: Posterior pharynx: erythema, that is mild. Vital Signs: 18:27 BP 166 / 66; Pulse 92; Resp 18; Temp 102.4(O); Pulse Ox 99% on R/A; Weight 60.78 kg 1 (R); Height 5 ft. 1 in. (154.94 cm) (R); Pain 0/10; 19:18 BP 154 / 61; Pulse 79; Resp 16; Temp 103.1(O); Pulse Ox 100% ; lt1 21:10 BP 157 / 65; Pulse 78; Resp 18; Temp 100.9; Pulse Ox 100% on R/A; aj1 18:27 Body Mass Index 25.32 (60.78 kg, 154.94 cm) 1 MDM: 18:16 Patient medically screened. [facility] 20:22 Data reviewed: vital signs, nurses notes. Counseling: I had a detailed discussion with kimberly the patient and/or guardian regarding: the historical points, exam findings, and any diagnostic results supporting the discharge/admit diagnosis, lab results, radiology results, the need for outpatient follow up, to return to the emergency department if symptoms worsen or persist or if there are any questions or concerns that arise at home. ED course: Patient is alert and non toxic in appearance in the ED. Patient advised to follow up with PCP and otherwise given strict return precautions. Patient understood and agrees with the plan of care. . 04/27 18:17 Order name: CBC with Diff [facility] 04/27 18:17 Order name: CMP [facility] 04/27 18:17 Order name: Lactate; Complete Time: 19:24 [facility] 04/27 18:17 Order name: Procalcitonin; Complete Time: 19:36 [facility] 04/27 18: Order name: Flu; Complete Time: 19:24 [facility] 04/27 18:17 Order name: Strep; Complete Time: 19:24 [facility] 04/27 18:17 Order name: Urine Microscopic Only; Complete Time: 19:43 [facility] 04/27 18:17 Order name: Chest Pa And Lat (2 Views) XRAY; Complete Time: 19:43 [facility] 04/27 18:18 Order name: CBC with Automated Diff; Complete Time: 19:24 [facility] 04/27 18:18 Order name: Comprehensive Metabolic Panel; Complete Time: 19:24 [facility] 04/27 18:54 Order name: Blood Culture Adult (2) [facility] 04/27 19:08 Order name: Throat Culture [facility] 04/27 19:39 Order name: Urine Culture [facility] 04/27 20:28 Order name: Urine Dipstick--Ancillary (enter results); Complete Time: 21:32 ar5 04/27 18:17 Order name: Saline Lock; Complete Time: 18:46 [facility] 04/27 18:17 Order name: Urine Dipstick-Ancillary (obtain specimen); Complete Time: 19:20 [facility] Administered Medications: 19:09 Drug: NS 0.9% (30 ml/kg) 30 ml/kg Route: IV; Rate: bolus; Site: right antecubital; [facility] 21:11 Follow up: IV Status: Completed infusion; IV Intake: 1000ml [facility] 19:19 Drug: Rocephin 1 grams Route: IV; Rate: calculated rate; Site: right antecubital; [facility] 20:17 Drug: Tylenol 650 mg Route: PO; [facility] 21:11 Follow up: Response: No adverse reaction aj1 Disposition: 04/28 15:21 Co-signature as Attending Physician, Donna Fabian MD. ma2 Disposition: 04/27/19 20:23 Discharged to Home. Impression: Acute pharyngitis. - Condition is Stable. - Discharge Instructions: Pharyngitis. - Prescriptions for cefdinir 300 mg Oral capsule - take 1 capsule by ORAL route every 12 hours; 20 capsule. Tamiflu 75 mg Oral Capsule - take 1 tablet by ORAL route every 12 hours for 5 days; 10 tablet. - Medication Reconciliation Form, Thank You Letter, Antibiotic Education, Prescription Opioid Use form. - Follow up: Private Physician; When: 2 - 3 days; Reason: Recheck today's complaints, Continuance of care, Re-evaluation by your physician. Signatures: [facility] Coby Baeza RN RN aj1 Rishi Rios PA PA Donna Ardon MD MD ma2 Corrections: (The following items were deleted from the chart) 04/27 21:11 20:23 04/27/2019 20:23 Discharged to Home. Impression: Acute pharyngitis. Condition is aj1 Stable. Forms are Medication Reconciliation Form, Thank You Letter, Antibiotic Education, Prescription Opioid Use. Follow up: Private Physician; When: 2 - 3 days; Reason: Recheck today's complaints, Continuance of care, Re-evaluation by your physician. kimberly
[2019-04-27 20:42] LABS: Urine Blood 1+ (NEG); Urine Glucose NEGATIVE (NEG); Urine Protein NEGATIVE (NEG); Urine pH 7.5 (5.0-7.0)
[2019-04-27 21:42] VITALS: O2SAT 100
[2019-04-27 21:44] VITALS: BP 157/65; TEMP 100.9
== END 2019-04-27 21:11 | disposition home or self-care (01) ==
LOC: ER 17:42
DX: J02.9 Acute pharyngitis, unspecified (principal); I10 Essential (primary) hypertension; E78.00 Pure hypercholesterolemia, unspecified; Z79.82 Long term (current) use of aspirin; Z85.89 Personal history of malignant neoplasm of other organs and systems
CPT/HCPCS: 96361; 87040 ×2; 87070; 87088; 85025; 87086; 36415; 87081; 83605; 87077; 87186; 80053; 84145; 87804 ×2; 71046; 96374; 99284; J0696; J7030; 81003; 81015; 96365; 96366; 96375

== ENCOUNTER 2020-03-17 06:38 | Day surgery (SDC) | payer OTHER ==
[2020-03-13 11:30] VITALS: BMI 26.9
[2020-03-13 12:28] LABS: Absolute Lymphocytes (CBC) 2.2 K/uL (0.7-4.9); Basophils % 0.5 % (0-1.3); Hematocrit 38.6 % (36.0-45.0); MPV 12.1 fL (7.6-11.3); RBC Red Blood Cell Count 3.82 M/uL (3.86-4.86)
[2020-03-13 12:31] LABS: Potassium 3.7 mmol/L (3.5-5.1)
[2020-03-13 12:34] LABS: Protime INR 1.06
--- NOTE | 2020-03-13 12:34 | RAD REPORT ---
EXAM DESCRIPTION: RAD - Chest Pa And Lat (2 Views) - 03/13/2020 11:52 am CLINICAL HISTORY: Preop chest, pending cardiac catheterization COMPARISON: April 2019 TECHNIQUE: Frontal and lateral views of the chest were obtained. FINDINGS: The lungs are clear. Interstitial pattern matches comparison. Heart size is normal and ce ntral vasculature is within normal limits. Old rib trauma noted on the left. No pleural effusion or p neumothorax seen. No acute bony finding noted. No aortic abnormality. IMPRESSION: No acute cardiopulmonary process. No significant change from comparison study.
[2020-03-13 12:56] LABS: Platelet Estimate ADEQ; White Blood Cell Scan 0 (OK)
[2020-03-13 12:57] LABS: Blood Morphology Comment NOT SEEN (NOT SEEN)
--- NOTE | 2020-03-14 20:04 | EKG ---
Test Date: 2020-03-13 Test Time: 11:52:03 Cad Designer: MONSE MEASUREMENT RESULTS: Intervals: Rate: 57 [place]: 158 QRSD: 94 QT: 448 QTc: 436 [place]: P: 51 [place]: 158 QRS: 46 T: 115 INTERPRETIVE STATEMENTS: Poor data quality, interpretation may be adversely affected Sinus bradycardia T wave abnormality, consider anterolateral ischemia Abnormal ECG Compared to ECG 01/20/2018 16:52:25 T-wave abnormality now present Possible ischemia now present Electronically Signed On 03-14-20 20:01:30 SHOE MAKER by Aashish Machado
--- OUTSIDE RECORDS SUMMARY | 2020-03-17 06:42 | XMS REPORT | Continuity of Care Document ---
:1950 Author Organization [facility] t Address [address] [place] [address] Care Team Providers Name Role Phone Dinh SINGH Primary Care Physician Unavailable SYSTEM, NOT IN Attending Clinician Unavailable Dinh Singh MD Attending Clinician Macie Ortega MD Attending Clinician Payers Payer Name Policy Type Policy Effective Date Expiration Date Sour ce Number [employer] MEDICARE [id number] 2018 MD Stewart thanh [facility] 00:00:00 MEDICARE [id number]-PresentMedicare Problems Condition Condition Condition Status Onset Resolution Last Treating Co mments Source Name Details Category Date Date Treatment Clinician Date 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 in Myeloma in 08-20 Fa clyde remission Remission 00:00: Prac tic 00 e Hyperchole Hyperchole Problem Active V illage sterolemia sterolemia - Fa clyde 00:00: Practic 00 e Glaucoma Glaucoma Problem Active Corley ge -13 Family 00:00: Practic 00 e Essential Essential Problem Active Royal william hypertensi Hypertensi -13 Fa clyde on on 00:00: Practic 00 e 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 Family History Family Member Diagnosis Comments Start Date Stop Date Source Natural father -Gastrointestinal MD Gibson (Esophagus, Liver, Bile Duct, Stomach, Pancreas, Colon, Rectum, Anus Natural mother Coronary heart disease (CHD) MD Gibson Natural mother Diabetes MD Franck lizama Natural mother Hypertension Pierce son Natural mother Stroke MD Franck lizama Social History Social Habit Start Date Stop Date Quantity Comments Source Sex Assigned At MD Singletary on Exposure to Not sure MD Gibson SARS-CoV-2 (event) Cigarettes smoked 2020-02-28 2020-02-28 MD Terry andrade current (pack per 00:00:00 00:00:00 day) - Reported Cigarette pack-years 2020-02-28 2020-02-28 MD Sanderson ndersthanh 00:00:00 00:00:00 Tobacco use and 2020-02-28 2020-02-28 Never used MD Singletary on exposure 00:00:00 00:00:00 Alcohol intake 2020-02-28 2020-02-28 Current MD Franck lizama 00:00:00 00:00:00 non-drinker of alcohol (finding) History of tobacco 1970 2014-12-19 Current smoker MD Gibson use 00:00:00 00:00:00 Smoking Status Start Date Stop Date Source Former smoker 2020-02-28 00:00:00 2020-02-28 00:00:00 Pierce son Medications Ordered Filled Start Stop Current Ordering Indication Dosage Frequency Signature Comments Components Source Medication Medication Date Date Medication? Clinician (SIG) Name Name lenalidomid 2019-04 Yes multiple 10mg Take 10 mg MD gonsalez 1-20 myeloma by mouth. Anderso (REVLIMID) 16:36: For 21 n capsule 10 10 days then mg 7 days off bimatoprost 2019-04 Yes 1[drp] Administer MD (LUMJOSE) 1-20 1 drop to Pierce so 0.01% 15:32: both eyes n ophthalmic 52 at drops bedtime. cholecalcif 2019-04 Yes 400U Take 400 MD imer, 1-20 Units by Anderso vitamin D3, 15:32: mouth n 400 units 52 twice tablet daily. calcium 2019-04 Yes 1{tbl} Take 1 MD carbonate-v 1-20 tablet by And erso itamin D3 15:32: mouth n (CALCIUM 52 twice 500 WITH D) daily. 500 mg(1,250mg) -400 unit tab atorvastati 2019-04 Yes 80mg Take 80 mg MD alda (LIPITOR) 1-20 by mouth Terry rso 80 mg 15:32: daily. n tablet 52 LORazepam 2019-04- No Multiple 1mg Take 1 M D (Ativan) 1 16 20 myeloma tablet (1 Anderso mg tablet 00:00: 05:59 mg) by n 00 :00 mouth once for 1 dose 15 minutes prior to MRI sulfamethox 2019- No Multiple 1{tbl} Take 1 MD azole-trime 2-20 -20 myeloma tablet by Anderso thoprim 00:00: 00:00 mouth 3 n (BACTRIM 00 :00 (three) DS) 800 times a mg-160 mg week per tablet Monday, Monday and Monday. oxyCODONE 2019- No Multiple 10mg Take 2 M D (ROXICODONE 2-19 11-20 myeloma tablets A nderso ) 5 mg 00:00: 00:00 (10 mg) by n immediate 00 :00 mouth release every 4 tablet (four) hours as needed for moderate pain or severe pain. chlorhexidi 2019- No Multiple 15mL Swish and MD diaz (PAROEX) 10-19 myeloma spit 15 mL Anderso 0.12% 00:00: 00:00 twice n mouthwash 00 :00 daily. (alcohol-fr Swish and ee) spit after 30 seconds fluoride, 2019- No Multiple Apply to sodium, 10-19-20 myeloma teeth Anderso (PREVIDENT) 00:00: 00:00 daily. n 1.1 % 00 :00 dental cream senna-docus 2019- No Multiple 1{tbl} Take 1 ate 626 11-20 myeloma tablet by Hayder parker (SENOKOT-S) 00:00: 00:00 mouth 2 n 8.6 mg-50 00 :00 (two) mg tablet times a day as needed for constipati on. Aspir-81 mg Aspir-81 mg No 1 Q1D Aspir-81 Village tablet,dayana tablet,dayana mg F amily yed release yed release tablet,del Practic Take 1 Take 1 ayed e tablet tablet release every day every day Take 1 by oral by oral tablet route. route. every day by oral route. atorvastati atorvastati No 1 Q1D atorvastat [facility] n 80 mg n 80 mg in 80 mg Famil y tablet Take tablet Take tablet Practic 1 tablet 1 tablet Take 1 e every day every day tablet by oral by oral every day route. route. by oral route. Calcium 600 Calcium 600 No 1capsul Q1D Calcium [facility] with with e(s) 600 with Family Vitamin D3 Vitamin D3 Vitamin D3 Practic 600 mg 600 mg 600 mg e (1,500 (1,500 (1,500 mg)-500 mg)-500 mg)-500 unit unit unit capsule capsule capsule Take 1 Take 1 Take 1 capsule capsule capsule every day every day every day by oral by oral by oral route. route. route. [facility] e 0.01 % eye 0.01 % eye 0.01 % eye Family drops 1 drops 1 drops 1 Practi c drop to drop to drop to e both eyes both eyes both eyes at night at night at night Revlimid 10 Revlimid 10 No 1capsul Q1D Revlimid [facility] mg capsule mg capsule e(s) 10 mg Fa clyde Take 1 Take 1 capsule Practic capsule capsule Take 1 e every day every day capsule by oral by oral every day route. route. by oral route. Immunizations Ordered Immunization Filled Immunization Date Status Commen ts Source Name Name DTaP / IPV 2019-03-01 Completed MD Gibson 00:00:00 Hib (PRP-OMP) 2019-03-01 Completed MD Gibson 00:00:00 Hepatitis B 2019-03-01 Completed MD Gibson 00:00:00 Pneumococcal 2019-03-01 Completed MD Gibson Conjugate 13-Valent 00:00:00 influenza, influenza, 2019-01-08 [facility] injectable, injectable, 00:00:00 Practice quadrivalent quadrivalent DTaP / IPV 2018-12-06 Completed MD Gibson 00:00:00 Hib (PRP-OMP) 2018-12-06 Completed MD Gibson 00:00:00 Hepatitis B 2018-12-06 Completed MD Gibson 00:00:00 Pneumococcal 2018-12-06 Completed MD Gibson Conjugate 13-Valent 00:00:00 DTaP / IPV 2018-09-04 Completed MD Gibson 00:00:00 Hib (PRP-OMP) 2018-09-04 Completed MD Gibson 00:00:00 Hepatitis B 2018-09-04 Completed MD Gibson 00:00:00 Pneumococcal 2018-09-04 Completed MD Gibson Conjugate 13-Valent 00:00:00 Vital Signs Vital Name Observation Time Observation Value Comments Source Height 2019-08-21 00:00:00 62 [in_i] [facility] BMI (Body Mass Index) 2019-08-21 00:00:00 25.4 kg/m2 [facility] Body Weight 2019-08-21 00:00:00 139 [lb_av] [facility] Systolic blood 2020-02-28 15:22:02 158 mm[Hg] pressure Diastolic blood 2020-02-28 15:22:02 63 mm[Hg] MD Nevin mendesson pressure Heart rate 2020-02-28 15:22:02 60 /min MD Pierce jesus Body temperature 2020-02-28 15:22:02 36.78 Gilma MD Maria E bernardon Respiratory rate 2020-02-28 15:22:02 12 /min MD Maria E iqbal Body weight 2020-02-28 15:22:02 66.5 kg MD Pierce jesus BMI 2020-02-28 15:22:02 27.86 kg/m2 MD Pierce jesus Oxygen saturation in 2020-02-28 15:22:02 96 /min MD Gibson Arterial blood by Pulse oximetry Procedures Procedure Date / Time Performed Performing Clinician Sourc e PROTEIN ELECTROPHORESIS, SERUM 2020-02-26 16:22:00 Con Singh MD IMMUNOGLOBULIN M SERUM 2020-02-26 16:22:00 Con Singh MD FREE LAMBDA LIGHT CHAIN 2020-02-26 16:22:00 Con Singh MDon BETA 2 MICROGLOBULIN 2020-02-26 16:22:00 Con Singh MD Terry rson COMPLETE BLOOD COUNT W/ 2020-02-26 16:22:00 Con Singh MD nderson DIFFERENTIAL TOTAL PROTEIN 2020-02-26 16:22:00 Con Singh MD ALBUMIN LEVEL 2020-02-26 16:22:00 Con Singh MD ELECTROLYTE PANEL 2020-02-26 16:22:00 Con Singh MD Anderso n MAGNESIUM LEVEL 2020-02-26 16:22:00 Con Singh MD PHOSPHORUS LEVEL 2020-02-26 16:22:00 Con Singh MD CALCIUM LEVEL TOTAL 2020-02-26 16:22:00 Con Singh MD [facility] GLUCOSE, RANDOM 2020-02-26 16:22:00 Con Singh MD BLOOD UREA NITROGEN 2020-02-26 16:22:00 Con Singh MD [facility] SERUM CREATININE 2020-02-26 16:22:00 Con Singh MD URIC ACID 2020-02-26 16:22:00 Con Singh MD ALANINE AMINOTRANSFERASE 2020-02-26 16:22:00 Con Singh MD ASPARTATE AMINOTRANSFERASE 2020-02-26 16:22:00 Con Singh ALKALINE PHOSPHATASE 2020-02-26 16:22:00 Con Singh MD FRACTIONATED BILIRUBIN 2020-02-26 16:22:00 Con Singh MD derson LACTATE DEHYDROGENASE 2020-02-26 16:22:00 Con Singh MD And erson Results CBC 2020-02-26 16:22:00 Con Singh MD MANUAL DIFFERENTIAL 2020-02-26 16:22:00 Con Singh MD [facility] SERUM CREATININE 2020-02-26 16:22:00 Con Singh MD .GLOMERULAR FILTRATION RATE 2020-02-26 16:22:00 Con Singh MD FREE KAPPA/FREE LAMBDA RATIO 2020-02-26 16:22:00 Con Singh MD IMMUNOFIXATION ELECTROPHORESIS 2020-02-26 16:22:00 Con Singh MD .DR. CHEUNG PROT ELEC PATH 2020-02-26 16:22:00 Con Singh MD REVIEW .DR. CHEUNG EDMAR PATH REVIEW 2020-02-26 16:22:00 Con Singh URINE TOTAL PROTEIN 2020-02-26 11:00:00 Con Singh MD Pierce son .TOTAL VOLUME 2020-02-26 11:00:00 Con Singh MD .DR. SAAVEDRA U PROT ELEC PATH 2020-02-26 11:00:00 Con Singh MD REVIEW Plan of Care Planned Activity Planned Date Details Comments Source Instructions [facility] Encounters Start End Encounter Admission Attending Care Care Encounter Source Date/Time Date/Time Type Type Clinicians Facility Department ID 2019-10-09 Outpatient SYSTEM, [facility] [id number] 11:04:10 PROVIDER Hayder o n 2019-08-21 2019-08-21 Lynnette [facility] [place] - [id number] V ill[facility] 00:00:00 00:00:00 [facility] kurtis parker, TILER: Medical - Practi c [email or web address]_V@_ [facility], [address] [address], [place] [address] , Ph. Results Test Description Test Time Test Comments Results Result Comments Source Urine Prot Electrophoresis Path Review 2020-03-04 16:53:51 Test Item Value Reference Range Interpretation Comme nts U ProE The follow-up JOANA Delgadillo urine protein MD KERI - 101 84Dictated by: MD Gary LINCOLN Int electrophoretic [id number] d Date/Time: 03.04.2020 10:53 AM HOUSE SUPERVISOR (test pattern does not Transcribed Date/Time: 03.04.2020 10:53 AM CSTElectronically code = show definitive Signed By: Azalea SAAVEDRA MD - [id number] on 03.04.2020 10:53 AM 7803) evidence of a Bence-Liang protein peak. If a Bence-Liang proteinuria is suspected clinically, however, urine EDMAR studies are suggested. MD GibsonProtein Electrophoresis [id number] 16:53:50 Test Item Value Reference Range Interpretation Comments U Albumin % (test code = 7676) 39.3 % 30-50 U Globulin% (test code = 8523) 60.7 % 50-70 [facility] [id number] 17:45:41SPE Path InterpThe follow-up serum protein electrophoretic pattern currently shows a small protein peak (0.3 g/dL) in the gamma region which appears to correspond with an indistinct IgG kappa band on immunofixation studies. The peak is noted to have a much more anodic migration compared to the patient's original M- protein.The significance of this finding is uncertain at this time. Comment: MARIE CHEUNG MD, PhD [id number] by: MARIE CHEUNG MD, PhD [id number] Date/Time: 03.03.2020 11:45 AM HOUSE SUPERVISOR Transcribed Date/Time: 03.03.2020 11:45 AM CSTElectronically Signed By: [place] [id number] on 03.03.2020 11:45 AM [facility] [id number] 17:45:40IFE Path IntThe follow-up serum protein immunofixation electrophoretic patterns obtained with the use of antisera against IgG, IgA, IgM, bound [place] and bound Lambda light chain proteins currently suggest the presence of an indistinct IgG kappa band in the gamma region but which has a much more anodicmigration compared to the patient's original M-protein.The significance of such a finding is uncertain at this time. Clinical correlation and close follow-up studies are recommended. Comment: MARIE CHEUNG MD, PhD [id number] by: MARIE CHEUNG MD, PhD [id number] Date/Time: 03.03.2020 11:45 AM HOUSE SUPERVISOR Transcribed Date/Time: 03.03.2020 11:45 AM CSTElectronically Signed By: [place] [id number] on 03.03.2020 11:45 AM [facility] MD [id number] 17:45:39 Test Item Value Reference Range Interpretation Comments EDMAR (test code = 5948) See Comment MD GibsonProtein [id number] 17:45:38 Test Item Value Reference Range Interpretation Comments TOT PROTEIN (test code = 7.2 6.4- 8.3 gm/dL 8545) Albumin (test code = 1751-7) 3.7 3.6- 5.4 gm/dL Alpha 1 Globulin (test code = 0.4 0.2- 0.4 gm/dL 2865-4) Alpha 2 Globulin (test code = 1.1 0.5- 1.0 gm/dL H 2868-8) Beta Globulin (test code = 0.8 0.5- 1.1 gm/dL 2871-2) Gamma Globulin (test code = 1.2 0.7- 1.6 gm/dL 2874-6) Paraprotein1 (test code = see path review 0.0- 0.0 gm/dL 12214-3) Lab Interpretation (test code Abnormal = 51022-8) MD GibsonRoyriipq77ff Urine Total [id number] 20:22:22 Test Item Value Reference Range Interpretation Comments UTP (test code = 11 mg/dL <=149 Caution is advised when 7921) interpreting va lues greater than 555 mg/dL. Results requiring exten ded dilution beyond the manu facturer's recommendedlimi t may not dilute linearly due to potential matri x effect.Correlat ion with clinical contex t is recommended. UTP/TV (test code 278 = 7923) MD Saha [place]/Free Lambda [id number] 19:03:29 Test Item Value Reference Range Interpretation Comments FKap/FLam RT (test code = 5566) 1.24 0.26-1.65 MD Saha Lambda Light [id number] 19:03:28 Test Item Value Reference Range Interpretation Comments Free Lambda (test code = 5630) 40.11 mg/L 5.71-26.3 H Lab Interpretation (test code = Abnormal 34351-2) MD Saha [place] Light [id number] 19:03:27 Test Item Value Reference Range Interpretation Comments Free [place] (test code = 5629) 49.75 mg/L 3.3-19.4 H Lab Interpretation (test code = Abnormal 58196-3) MD GibsonBeta 2 [id number] 19:03:26 Test Item Value Reference Range Interpretation Comments Beta2 Microglob (test code = 5090) 2.8 mg/L 0.8-2.3 H Lab Interpretation (test code = Abnormal 23747-5) MD [id number] 19:03:25 Test Item Value Reference Range Interpretation Comments IgM (test code = 6023) 15 mg/dL 35-242 L Lab Interpretation (test code = Abnormal 10716-7) MD [id number] 19:03:24 Test Item Value Reference Range Interpretation Comments IgG (test code = 6001) 1121 mg/dL 610-1616 MD [id number] 19:03:23 Test Item Value Reference Range Interpretation Comments IgA (test code = 5992) 178 mg/dL 85-499 MD GibsonFractionated [id number] 17:05:55 Test Item Value Reference Range Interpretation Comments Bili Total (test 0.5 mg/dL <=1.2 Indocyanine Green (ICG) code = 5096) may cause false ly elevated biliru bin results. Total and direct bilirubin must not be measured from s amples containing indo cyanine green. False el evation of total bilirubin can be seen in patient s with IgG concentrations above 28 g/L. Bili Direct (test <0.2 <=0.3 mg/dL Indocyanin e Green (ICG) code = 5094) may cause false ly elevated biliru bin results. Total and direct bilirubin must not be measured from s amples containing indo cyanine green. Bili Indirect (test See Note 0-0.9 Unable t o calculate code = 5095) Indirect Biliru bin result due to some par ameters are outside rep ortable range MD GibsonGlomerular Filtration [id number] 17:05:54 Test Item Value Reference Range Interpretation Comments eGFR-AA (test code = 62 >=60 mL/min/1.73 Nor mal eGFR: >= 60 8062) sq. m mL/min/1.73 m2N ote: The eGFR is kena culated using the CKD-E PI equation. The e GFR declines with a ge. eGFR <60 mL/min /1.73 m2 is considere d as "decreased". Th is equation should only be used for pat ients 18 and older. According to th e National Kidney Foundation's dney Disease Outcome Quality Initiat nan (KDOQI) classif ication and 2012 Kidney Disease Improvi ng Global Outcomes (KDIGO) Clinica l Practice Guidel ine, the stage of CK D should be categ orized based on estima jenny GFR. Stage Desc ription GFR mL/mi n/1.73 m21 Normal or h igh GFR >=902 Mildly decreased GFR 60-893a M ildly to moderately decreased GFR 45-593b Moderat raine to severely decrea sed GFR 30-444 Kayleigh rely decreased GFR 15-295 Kidney f ailure <15 eGFR-YASMIN (test code = 54 >=60 mL/min/1.73 L No rmal eGFR: >= 60 8063) sq. m mL/min/1.73 m2N ote: The eGFR is kena culated using the CKD-E PI equation. The e GFR declines with a ge. eGFR <60 mL/min /1.73 m2 is considere d as "decreased". Th is equation should only be used for pat ients 18 and older. According to th e National Kidney Foundation's Ki dney Disease Outcome Quality Initiat nan (KDOQI) classif ication and 2012 Kidney Disease Improvi ng Global Outcomes (KDIGO) Clinica l Practice Guidel ine, the stage of CK D should be categ orized based on estima jenny GFR. Stage Desc ription GFR mL/mi n/1.73 m21 Normal or h igh GFR >=902 Mildly decreased GFR 60-893a M ildly to moderately decreased GFR 45-593b Moderat raine to severely decrea sed GFR 30-444 Kayleigh rely decreased GFR 15-295 Kidney f ailure <15 Lab Interpretation Abnormal (test code = 24228-2) MD GibsonMagnesium [id number] 17:05:52 Test Item Value Reference Range Interpretation Comments Magnesium (test code = 6359) 2.1 mg/dL 1.6-2.6 MD GibsonGlucose, [id number] 17:05:51 Test Item Value Reference Range Interpretation Comments Glucose Random (test 112 mg/dL 70-199 Effecti ve 7/27/16, the code = 9360) glucose referen ce intervals have been updated based o n [place] [employer] inocencio delines (Standards of M edical Care in Diabete s 2016. Diabetes Care 2 016; 39: S13-S22).Fastin g blood glucose:Normal: 70 99 mg/dLImpaire d fasting glucose (increa sed risk for diabetes or pre-diabetes): 100 125 mg/dLDiabet es mellitus: >/=1 26 mg/dL Random blood glucose:Normal: 70 199 mg/dLNote: Random glucose >100 mg /dL is associated with increased risk for diabetes MD [id number] 17:05:49 Test Item Value Reference Range Interpretation Comments LDH (test code = 146 U/L 135-214 Results gre ater than 1651 6111) U/L may not be reliable due to matrix effec t with extended diluti on as it exceeds the man ufacturer s recommended l imit. Caution should be exercised when interpreti ng such values and done in conjunction wit h clinical context. MD GibsonUric [id number] 17:05:48 Test Item Value Reference Range Interpretation Comments Uric Acid (test code = 7955) 4.0 mg/dL 2.4-5.7 MD GibsonAlkaline [id number] 17:05:47 Test Item Value Reference Range Interpretation Comments Alk Phos (test code = 4768) 94 U/L 35-104 MD GibsonTotal [id number] 17:05:46 Test Item Value Reference Range Interpretation Comments Total Protein (test code = 7649) 7.2 g/dL 6.4-8.3 MD GibsonAlbumin [id number] 17:05:45 Test Item Value Reference Range Interpretation Comments Albumin Lvl (test code = 4763) 4.2 3.5- 5.2 gm/dL MD GibsonPhosphorus [id number] 17:05:44 Test Item Value Reference Range Interpretation Comments Phosphorus (test code = 6817) 3.1 mg/dL 2.5-4.5 MD GibsonElectrolyte [id number] 17:05:43 Test Item Value Reference Range Interpretation Comments Sodium Lvl (test code = 7355) 139 136- 145 mEq/L Potassium Lvl (test code = 6854) 4.2 3.5- 5.1 mEq/L Chloride (test code = 5279) 102 98- 107 mEq/L CO2 (test code = 5227) 29 22- 29 mEq/L Anion Gap (test code = 9325) 8 4- 14 mEq/L MD GibsonAspartate [id number] 17:05:42 Test Item Value Reference Range Interpretation Comments AST (test code = 4731) 17 U/L <=32 MD GibsonCalcium [id number] 17:05:41 Test Item Value Reference Range Interpretation Comments Calcium Lvl (test code = 5258) 10.4 mg/dL 8.4-10.2 H Lab Interpretation (test code = Abnormal 16126-9) MD GibsonAlanine [id number] 17:05:39 Test Item Value Reference Range Interpretation Comments ALT (test code = 4705) 16 U/L <=33 MD Gibson.Serum [id number] 17:05:38 Test Item Value Reference Range Interpretation Comments Creatinine (test code = 5399) 1.04 mg/dL 0.51-0.95 H Lab Interpretation (test code = Abnormal 11175-5) MD [id number] 17:05:37 Test Item Value Reference Range Interpretation Comments BUN (test code = 5055) 12 mg/dL 6-23 MD GibsonTotal [id number] 16:48:41 Test Item Value Reference Range Interpretation Comments Total Volume (test code = 7650) 2525 mL 6807-8884 H Hrs Collected (test code = 5928) 24 Start Date (test code = 7382) 02/25/2020 End Date (test code = 5510) 02/26/2020 Lab Interpretation (test code = Abnormal 10895-3) MD Gi[id number] 16:39:26 Test Item Value Reference Range Interpretation Comments Neutrophil % (test code = 36.2 % 42-66 L 85674-5) Lymphocyte % (test code = 45.2 % 24-44 H 737-7) Monocyte % (test code = 13.8 % 2-7 H 744-3) Eosinophil % (test code = 3.3 % 1-4 713-8) Basophil % (test code = 1.2 % 0-1 H 707-0) IGRE % (test code = 0.3 % 0-0.4 IGRE % c ount 15701-4) includes Metamyelocytes, Myelocytes, and Promyelocytes. Neutrophil Abs (test code 2.17 K/uL 1.7-7.3 = 753-4) Lymphocyte Abs (test code 2.71 K/uL 1-4.8 = 732-8) Monocyte Abs (test code = 0.83 K/uL 0.08-0.7 H 743-5) Eosinophil Abs (test code 0.20 K/uL 0.04-0.4 = 712-0) Basophil Abs (test code = 0.07 K/uL 0-0.1 705-4) IG Abs (test code = 0.02 K/uL 0-0.04 58320-6) Lab Interpretation (test Abnormal code = 64111-9) MD Gibson.[id number] 16:39:23 Test Item Value Reference Range Interpretation Comments WBC (test code = 6.0 K/uL 4-11 6690-2) RBC (test code = 789-8) 3.72 4.00- 5.50 M/uL L Hgb (test code = 718-7) 12.8 12.0- 16.0 gm/dL Hct (test code = 37.5 % 37-47 4544-3) MPV (test code = 787-2) 12.6 fL 4-10.4 H MCH (test code = 785-6) 34.4 pg 27-31 H MCHC (test code = 34.1 31.0- 36.0 gm/dL 786-4) RDW-SD (test code = 65.0 fL 35.1-46.3 H 27265-5) RDW-CV (test code = 17.5 % 12-15.5 H 788-0) Platelet count (test 217 K/uL 140-440 code = 777-3) INRBC (test code = 0.0 % <=0.0 The INRBC (instrument 5974) NRBC) value ref lects the enumeration of nucleated red b lood cells contained in a 200uL sampleof whole blood analyzed by the instrument. Thi s value maydiffer from the NRBC value reported in a m anual differential,wh ich is based on a 100 cell differential. Lab Interpretation Abnormal (test code = 28491-2) MD Gibson
[2020-03-17] MEDS ORDERED: HEPA 1000U/500MLS 1,000 UNIT/500 ML BAG IV ONE (06:56)
[2020-03-17] MEDS ORDERED: NA CHLORIDE 0.9% 500 ML ONE (07:01)
[2020-03-17] MEDS ORDERED: MIDAZOLAM HCL 2 MG/2 ML INJ ONE (07:31)
[2020-03-17] MEDS ORDERED: FENTANYL CITR 100 MCG/2 ML ONE (07:32)
[2020-03-17] MEDS ORDERED: ATROPINE SULF 1 MG/10 ML SYR IV ONE (07:32)
[2020-03-17 08:20] VITALS: O2SAT 100
[2020-03-17 08:23] VITALS: TEMP 97.4
--- NOTE | 2020-03-17 09:40 | OP ---
Date of Procedure: 03/17/2020 Surgeon: Aashish Machado MD Director Of Graduate Medical Education: Rex Carter. Angio-Seal was used to close the femoral sheath site on the left groin. She will be at bedrest for 2 hours and she will go home after that. I will make arrangements for her to see one of the cardiovas cular surgeons in [place] for her carotid endarterectomy in the near future. Indications: The patient was brought to the [facility] as an outpatient today, 03/17/2020. She was br ought in because of cerebrovascular disease and bilateral selective carotid angiogram to be done toda y. She is 69, has high blood pressure, dyslipidemia, was found to have severe stenosis of the right carotid by Doppler. Description Of Procedure: Brought to the [facility] as an outpatient, prepped and draped in routine st erile fashion, given Versed and fentanyl for sedation. A 6-[place] sheath was introduced in the left common femoral artery using Seldinger technique and 10 mL of xylocaine. A JR4 catheter was then intr oduced to select the right common carotid and the left common carotid separately. Angiography there showed a normal left common carotid, normal left external carotid, normal left internal carotid arter y. On the right side, she had a normal common carotid and normal external carotid and she had about a 70% to 80% stenosis in the right ICA. No complication. Blood Loss: 5 mL. Anesthesia: Total conscious sedation was 30 minutes. Postoperative Diagnosis: Severe cerebrovascular disease with severe right internal carotid artery st enosis. Plan for a right carotid endarterectomy. SHELLY/JOSEF Voice ID: [id number] Report ID: [id number]
[2020-03-17 10:16] VITALS: BP 154/75
== END 2020-03-17 10:00 | disposition home or self-care (01) ==
LOC: CCL 06:38
DX: I65.21 Occlusion and stenosis of right carotid artery (principal); Z20.828 Contact with and (suspected) exposure to other viral communicable diseases
CPT/HCPCS: 36222; 36415; 71046; 80048; 85025; 85610; 85730; 93005; C1760; C1893; J1644; J2250; J3010; J7040; U0002

== ENCOUNTER 2020-08-06 19:18 | Observation (INO) | payer OTHER ==
--- OUTSIDE RECORDS SUMMARY | 2020-08-06 19:23 | XMS REPORT | Continuity of Care Document ---
:1950 Author Organization [facility] t Address [address] [place] [address] Care Team Providers Name Role Phone Dinh SINGH Primary Care Physician Unavailable SYSTEM, NOT IN Attending Clinician Unavailable FABIEN Attending Clinician Unavailable Rubi GARCIA Attending Clinician Андрей Anthony MD Attending Clinician Aquiles GARCIA CCristofer Attending Clinician Macie Ortega MD Attending Clinician Payers Payer Name Policy Type Policy Effective Date Expiration Date Sour ce Number [employer] MEDICARE [id number] 2018 MD [facility] [id number]/2018-[facility]Medicare [facility] MGD [id number] 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 in 5-13 Fa clyde remission Remission 00:00: Prac tic 00 e Hyperchole Hyperchole Problem Active V illage sterolemia sterolemia 5-13 Fa clyde 00:00: Practic 00 e Glaucoma Glaucoma Problem Active Corley ge 5-13 Family 00:00: Practic 00 e Essential Essential Problem Active Royal thomas hypertensi Hypertensi 5-13 Fa clyde on on 00:00: Practic 00 [...] 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 Hayder o artery artery 00:00: n 00 [...] Diabetes MD Franck lizama Natural mother Hypertension MD Pelayo son Natural mother Stroke MD Franck lizama Social History Social Habit Start Date Stop Date Quantity Comments Source Sex Assigned At MD Singletary on History [facility] - Alcohol Std Drinks [facility] History SDOH [facility] - Alcohol Binge Medical Lionel ter History SDOH 2020-03-25 2020-03-[address] [facility] - Alcohol Frequency 00:00:00 00:00:00 Medical Center Cigarettes smoked 2020-02-28 2020-02-28 MD Terry andrade current (pack per 00:00:00 00:00:00 day) - Reported Cigarette 2020-02-28 2020-02-28 MD Gibson pack-years 00:00:00 00:00:00 Tobacco use and 2020-02-28 2020-02-28 Never used MD Singletary on exposure 00:00:00 00:00:00 Alcohol intake 2020-02-28 2020-02-28 Current MD Franck lizama 00:00:00 00:00:00 non-drinker of alcohol (finding) History of tobacco 1970 2014-12-19 Current smoker MD Gibson use 00:00:00 00:00:00 Smoking Status Start Date Stop Date Source Former smoker 2020-02-28 00:00:00 2020-02-28 00:00:00 Pierce edin Medications Ordered Filled Start Stop Current Ordering Indication Dosage Frequency Signature Comments Components Source Medication Medication Date Date Medication? Clinician (SIG) Name Name calcium Yes Q24H daily. [facility] carbonate-v 1-06 [facility] - itamin D3 13:59: Medical (Calcium 39 Center 600 with Vitamin D3) 600 mg(1,500mg) -500 unit Cap cholecalcif Yes 400U Take [address] imer 1-06 Units by [facility] - (VITAMIN 13:59: mouth. Medical D3) 10 mcg 39 Center (400 unit) Tab tablet aspirin Yes Q24H daily. [facility] (Aspir-81) 1-06 [facility] - 81 MG EC 13:59: Medical tablet 39 Center bimatoprost Yes Lumigan [facility] (Lumigan) 1-06 0.01 % eye Luke s - 0.01 % Drop 13:59: drops 1 Med ical ophthalmic 39 drop to Center solution both eyes at night Revlimid 10 2019-[address] mg capsule 2-08 [facility] - 00:00: Medical 00 Center lenalidomid 2019-04 Yes multiple 10mg Take 10 mg MD e 1-20 myeloma by mouth. Anderso (REVLIMID) 16:36: For 21 n capsule 10 10 days then mg 7 days off bimatoprost 2019-04 Yes 1[drp] Administer MD KEE) 1-20 1 drop to Pierce so 0.01% [...] 2019-04 Yes 80mg Take 80 mg MD n (LIPITOR) 1-20 by mouth Terry rso 80 mg 15:32: daily. n tablet 52 LORazepam 2019-04- No Multiple 1mg Take 1 M D (Ativan) 1 1-16 - myeloma tablet (1 Anderso mg tablet 00:00: 05:59 mg) by n 00 :00 mouth once for 1 dose 15 minutes prior to MRI atorvastati 2019-04 Yes 80mg QD Take [address] n (LIPITOR) 0-03 by mouth Luke s - 80 MG 00:00: daily. Medical tablet 00 Center sulfamethox 2019- No Multiple 1{tbl} Take 1 azole-trime 2-20 - myeloma tablet by Andyung thoprim 00:00: 00:00 mouth 3 n (BACTRIM 00 :00 (three) DS) 800 times a mg-160 mg week per tablet Monday, Monday and Monday. oxyCODONE 2019- No Multiple 10mg Take 2 M D (ROXICODONE 2-26 02- myeloma tablets A nderso ) 5 mg [...] seconds fluoride, 2019- No Multiple Apply to MD quiroz, 10-19-20 myeloma teeth Anderso (PREVIDENT) 00:00: 00:00 daily. n 1.1 % 00 :00 dental cream senna-docus 2019- No Multiple 1{tbl} Take 1 ate 6-05 03-20 myeloma tablet by Hayder parker (SENOKOT-S) 00:00: [...] route. atorvastati atorvastati No 1 Q1D atorvastat [facility] n 80 mg n 80 mg in 80 mg Famil y tablet Take tablet Take tablet Practic 1 tablet 1 tablet Take 1 e every day every day tablet by oral by oral every day route. route. by oral route. Calcium 600 Calcium 600 No 1capsul Q1D Calcium [facility] with with e(s) 600 with Family Vitamin D3 Vitamin D3 Vitamin D3 Practic 600 mg 600 mg 600 mg e (1,500 (1,500 (1,500 mg)-500 mg)-500 mg)-500 unit unit unit capsule capsule capsule Take 1 Take 1 Take 1 capsule capsule capsule every day every day every day by oral by oral by oral route. route. [facility] No [facility] e 0.01 % eye 0.01 % eye 0.01 % eye Family drops 1 drops 1 drops 1 Practi c drop to drop to drop to e both eyes both eyes both eyes at night at night at night Revlimid 10 Revlimid 10 No 1capsul Q1D Revlim[place] mg capsule mg capsule e(s) 10 mg [...] Gibson Conjugate 13-Valent 00:00:00 influenza, influenza, 2019-01-08 Completed [facility] injectable, injectable, 00:00:00 Practice quadrivalent quadrivalent DTaP [...] Comments Source Height 2019-08-21 00:00:00 62 [in_i] [facility] BMI (Body Mass Index) 2019-08-21 00:00:00 25.4 kg/m2 [facility] Body Weight 2019-08-21 00:00:00 139 [lb_av] [facility] Body height 2020-03-25 11:00:00 160 cm [facility] Body weight 2020-03-25 11:00:00 66.588 kg [facility] BMI 2020-03-25 11:00:00 26.00 kg/m2 [facility] Heart rate 2020-02-28 15:22:02 60 /min MD Pierce jesus Body temperature 2020-02-28 15:22:02 36.78 Gilma MD Maria E iqbal Respiratory rate 2020-02-28 15:22:02 12 /min MD Maria E iqbal Body weight 2020-02-28 15:22:02 66.5 kg MD Pierce jesus BMI 2020-02-28 15:22:02 27.86 kg/m2 MD Pierce jesus Oxygen saturation in 2020-02-28 15:22:02 96 /min MD Gibson Arterial blood by Pulse oximetry Systolic blood 2020-02-28 15:22:02 158 mm[Hg] pressure Diastolic blood 2020-02-28 15:22:02 63 mm[Hg] MD Nevin blackman pressure Procedures Procedure Date / Time Performed Performing Clinician [facility] e PROTEIN ELECTROPHORESIS, SERUM 2020-02-26 16:22:00 Con Singh MD IMMUNOGLOBULIN G SERUM 2020-02-26 16:22:00 Con Singh MD FREE KAPPA LIGHT CHAIN 2020-02-26 16:22:00 Con Singh MDson BETA 2 MICROGLOBULIN 2020-02-26 16:22:00 Con Singh MD Terry rson COMPLETE BLOOD COUNT W/ 2020-02-26 16:22:00 Con Singh MDon DIFFERENTIAL TOTAL PROTEIN 2020-02-26 16:22:00 Con Singh MD ALBUMIN LEVEL 2020-02-26 16:22:00 Con Singh MD ELECTROLYTE PANEL 2020-02-26 16:22:00 Con Singh MDo n MAGNESIUM LEVEL 2020-02-26 16:22:00 Con Singh MD PHOSPHORUS LEVEL 2020-02-26 16:22:00 Con Singh MD CALCIUM LEVEL TOTAL 2020-02-26 16:22:00 Con Singh MD [facility] GLUCOSE, RANDOM 2020-02-26 16:22:00 Con Singh MD BLOOD UREA NITROGEN 2020-02-26 16:22:00 Con Singh MD [facility] SERUM CREATININE 2020-02-26 16:22:00 Con Singh MD URIC ACID 2020-02-26 16:22:00 Con Singh MD ALANINE AMINOTRANSFERASE 2020-02-26 16:22:00 Con Singh MD ASPARTATE AMINOTRANSFERASE 2020-02-26 16:22:00 Con Singh ALKALINE PHOSPHATASE 2020-02-26 16:22:00 Con Singh MD Terry rson FRACTIONATED BILIRUBIN 2020-02-26 16:22:00 Con Singh MDson LACTATE DEHYDROGENASE 2020-02-26 16:22:00 Con Singh MD And erson Results CBC 2020-02-26 16:22:00 Con Singh MD MANUAL DIFFERENTIAL 2020-02-26 16:22:00 Con Singh MD [facility] SERUM CREATININE 2020-02-26 16:22:00 Con Singh MD .GLOMERULAR FILTRATION RATE 2020-02-26 16:22:00 Con Singh MD FREE KAPPA/FREE LAMBDA RATIO 2020-02-26 16:22:00 Con Singh MD IMMUNOFIXATION ELECTROPHORESIS 2020-02-26 16:22:00 Con Singh MD .DR. CHEUNG PROT ELEC PATH 2020-02-26 16:22:00 Con Singh MD REVIEW .DR. CHEUNG EDMAR PATH REVIEW 2020-02-26 16:22:00 Con Singh PROTEIN ELECTROPHORESIS URINE 2020-02-26 11:00:00 Con Singh MD URINE TOTAL PROTEIN 2020-02-26 11:00:00 Con Singh MD Pierce son .TOTAL VOLUME 2020-02-26 11:00:00 Con Singh MD [place] Plan of Care Planned Activity Planned Date Details Comments Source Future Scheduled Test 2020-04-[address] [facility] - 00:00:00 (12+) [code = Medical Center DEPRESSION SCREENING (12+)] Future Scheduled Test 2020-03-19 Medicare IPPE [facility] (WELCOME TO MEDICARE) Medica l Center [code = Medicare IPPE (WELCOME TO MEDICARE)] Future Scheduled Test 2019-12-[address] [facility] - [facility]:00 (#1) [code = Medical Center INFLUENZA VACCINE (#1)] Future Scheduled Test 2013 PNEUMOCOCCAL 65+ [facility] - 00:00:00 (1 of 1 - Medical Center [id number] PCV13) [code = PNEUMOCOCCAL 65+ YRS (1 of 1 - [id number] PCV13)] Future Scheduled Test 1950 [facility] malignant neoplasm of Medica l Center breast (procedure) [code = 666782608] Future Scheduled Test 1950 [facility] ne[facility] of Medica [facility] Center colon (procedure) [code = 712727236] [facility] Encounters Start End Encounter Admission Attending Care Care Encounter Source Date/Time Date/Time Type Type Clinicians Facility Department ID 2019-10-09 Outpatient SYSTEM, [facility] [id number] 11:04:10 PROVIDER Hayder o n 2020-07-28 2020-07-29 Outpatient [facility] [id number] Debary 00:00:00 00:00:00 , CHANTAL [address] 2020-07-28 2020-07-29 Outpatient [facility] [id number] Debary 00:00:00 00:00:00 , CHANTAL [address] 2020-07-28 2020-07-28 Outpatient [facility] [id number] Debary 00:00:00 00:00:00 , CHANTAL [address] 2019-08-21 2019-08-21 [facility] - [id number] V illage 00:00:00 00:00:00 [facility] kurtis parker, SHORTAGE WORKER: Medical - Practi c [address] _HOU_V@_ e [facility], [address] [address], [place] [address] , Ph. Results Test Description Test Time Test Comments Results Result Comments Source Urine Prot Electrophoresis Path Review 2020-03-04 16:53:51 Test Item Value Reference Range Interpretation Comme nts U ProE The follow-up JOANA Path urine protein MD KERI - 101 84Dictated by: MD Gary LINCOLN Int electrophoretic [id number] d Date/Time: 03.04.2020 10:53 AM MOVIE PROJECTIONIST (test pattern does not Transcribed Date/Time: 03.04.2020 10:53 AM CSTElectronically code = show definitive Signed By: Azalea SAAVEDRA MD - [id number] on 03.04.2020 10:53 AM 7803) evidence of a Bence-Liang protein peak. If a Bence-Liang proteinuria is suspected clinically, however, urine EDMAR studies are suggested. MD GibsonProtein Electrophoresis [id number] 16:53:50 Test Item Value Reference Range Interpretation Comments U Albumin % (test code = 7676) 39.3 % 30-50 U Globulin% (test code = 8523) 60.7 % 50-70 MD GibsonProtein Electrophoresis Path [id number] 17:45:41SPE Path InterpThe follow-up serum protein electrophoretic [...] this time. Comment: MARIE CHEUNG MD, PhD [id number] by: MARIE CHEUNG MD, PhD [id number] Date/Time: 03.03.2020 11:45 AM MOVIE PROJECTIONIST Transcribed Date/Time: 03.03.2020 11:45 AM CSTElectronically Signed By: [place] [id number] on 03.03.2020 11:45 AM [facility] AndersonIFE Path [id number] 17:45:40IFE Path IntThe follow-up serum protein immunofixation electrophoretic patterns obtained with the use of antisera against IgG, IgA, IgM, bound [place] and bound Lambda light chain proteins currently suggest the presence of an indistinct IgG kappa band in the gamma region but which has a much more anodicmigration compared to the patient's original M-protein.The significance of such a finding is uncertain at this time. Clinical correlation and close follow-up studies are recommended. Comment: MARIE CHEUNG MD, PhD [id number] by: MARIE CHEUNG MD, PhD [id number] Date/Time: 03.03.2020 11:45 AM MOVIE PROJECTIONIST Transcribed Date/Time: 03.03.2020 11:45 AM CSTElectronically Signed By: [place] [id number] on 03.03.2020 11:45 AM [facility] [id number] 17:45:39 Test Item Value Reference Range Interpretation Comments EDMAR (test code = 5948) See Comment MD GibsonProtein [id number] 17:45:38 Test Item Value Reference Range Interpretation Comments TOT PROTEIN (test 7.2 See_Comment [Automate d code = 8545) message] The system which generated this result transmit jenny reference range : 6.4 - 8.3 gm/dL . The reference range was not u sed to interpret th is result as normal/abnormal . Albumin (test code = 3.7 See_Comment [Autom ated 1751-7) message] The system which generated this result transmit jenny reference range : 3.6 - 5.4 gm/dL . The reference range was not u sed to interpret th is result as normal/abnormal . Alpha 1 Globulin 0.4 See_Comment [Automated (test code = 2865-4) message ] The system which generated this result transmit jenny reference range : 0.2 - 0.4 gm/dL . The reference range was not u sed to interpret th is result as normal/abnormal . Alpha 2 Globulin 1.1 See_Comment H [Automated (test code = 2868-8) message ] The system which generated this result transmit jenny reference range : 0.5 - 1.0 gm/dL . The reference range was not u sed to interpret th is result as normal/abnormal . Beta Globulin (test 0.8 See_Comment [Automa jenny code = 2871-2) message] The system which generated this result transmit jenny reference range : 0.5 - 1.1 gm/dL . The reference range was not u sed to interpret th is result as normal/abnormal . Gamma Globulin (test 1.2 See_Comment [Autom ated code = 2874-6) message] The system which generated this result transmit jenny reference range : 0.7 - 1.6 gm/dL . The reference range was not u sed to interpret th is result as normal/abnormal . Paraprotein1 (test see path review See_Comment [Auto mated code = 15872-0) message] The system which generated this result transmit jenny reference range : 0.0 - 0.0 gm/dL . The reference range was not u sed to interpret th is result as normal/abnormal . Lab Interpretation Abnormal (test code = 55800-6) MD GibsonIrtsajbj82gg Urine Total [id number] 20:22:22 Test Item Value Reference Range Interpretation Comments UTP (test code = 11 mg/dL See_Comment Caution is advised when 7921) interpreting va lues greater than 555 mg/dL. Results requiring exten ded dilution beyond the manu facturer's recommendedlimi t may not dilute linearly due to potential matri x effect.Correlat ion with clinical contex t is recommended. [ Automated message] The sy stem which generated this result transmitted ref erence range: <=149. The refe rence range was not used to interpret this result as normal/abnormal . UTP 24 (test code 278 = 7907) MD GibsonFrvirgilio [place]/Free Lambda [id number] 19:03:29 Test Item Value Reference Range Interpretation Comments FKap/FLam RT (test code = 5566) 1.24 0.26-1.65 MD Saha Lambda Light [id number] 19:03:28 Test Item Value Reference Range Interpretation Comments Free Lambda (test code = 5630) 40.11 mg/L 5.71-26.3 H Lab Interpretation (test code = Abnormal 19801-3) MD Saha [place] Light [id number] 19:03:27 Test Item Value Reference Range Interpretation Comments Free [place] (test code = 5629) 49.75 mg/L 3.3-19.4 H Lab Interpretation (test code = Abnormal 16394-9) MD GibsonBeta 2 [id number] 19:03:26 Test Item Value Reference Range Interpretation Comments Beta2 Microglob (test code = 5090) 2.8 mg/L 0.8-2.3 H Lab Interpretation (test code = Abnormal 74264-1) MD [id number] 19:03:25 Test Item Value Reference Range Interpretation Comments IgM (test code = 6023) 15 mg/dL 35-242 L Lab Interpretation (test code = Abnormal 59374-7) MD [id number] 19:03:24 Test Item Value Reference Range Interpretation Comments IgG (test code = 6001) 1121 mg/dL 610-1616 MD [id number] 19:03:23 Test Item Value Reference Range Interpretation Comments IgA (test code = 5992) 178 mg/dL 85-499 MD GibsonFractionated [id number] 17:05:55 Test Item Value Reference Range Interpretation Comments Bili Total (test 0.5 mg/dL See_Comment Indocyanine Green (ICG) code = 5096) may cause false ly elevated biliru bin results. Total and direct bilirubin must not be measured from s amples containing indo cyanine green. False el evation of total bilirubin can be seen in patient s with IgG concentrations above 28 g/L. [Automate d message] The system Fitfully generated this result transmitted ref erence range: <=1.2. T he reference range was not used to interpr et this result as normal/abnormal . Bili Direct (test <0.2 See_Comment Indocyanin e Green (ICG) code = 5094) may cause false ly elevated biliru bin results. Total and direct bilirubin must not be measured from s amples containing indo cyanine green. [Automat ed message] The sy stem which generated this result transmitted ref erence range: <=0.3 mg /dL. The reference range was not used to interpr et this result as normal/abnormal . Bili Indirect (test See Note 0-0.9 Unable t o calculate code = 5095) Indirect Biliru bin result due to some par ameters are outside rep ortable range MD GibsonGlomerular Filtration [id number] 17:05:54 Test Item Value Reference Range Interpretation Comments eGFR-AA (test code = 62 See_Comment Normal eGFR: >= 60 8062) mL/min/1.73 m2N ote: The eGFR is kena [...] decreased GFR 15-295 Kidney f ailure <15 [Auto mated message] The sy stem which generated this result transmit jenny reference range : >=60 mL/min/1.73 sq. m. The reference range was not used to int erpret this result as normal/abnormal . eGFR-YASMIN (test code = 54 See_Comment L Normal eGFR: >= 60 8063) mL/min/1.73 m2N ote: The eGFR is kena culated using the CKD-E PI equation. The e GFR declines with a ge. eGFR <60 mL/min /1.73 m2 is considere d as "decreased". Th is equation should only be used for pat ients 18 and older. According to th e National Kidney Foundation's Ki dney Disease Outcome Quality Initiat nan (KDOQI) classif ication and 2011 Kidney Disease Improvi ng Global Outcomes (KDIGO) [...] decreased GFR 15-295 Kidney f ailure <15 [Auto mated message] The sy stem which generated this result transmit jenny reference range : >=60 mL/min/1.73 sq. m. The reference range was not used to int erpret this result as normal/abnormal . Lab Interpretation Abnormal (test code = 65528-3) MD GibsonMagnesium [id number] 17:05:52 Test Item Value Reference Range Interpretation Comments Magnesium (test code = 6359) 2.1 mg/dL 1.6-2.6 MD GibsonGlucose, [id number] 17:05:51 Test Item Value Reference Range Interpretation Comments Glucose Random (test 112 mg/dL 70-199 Effecti ve 11/04/15, the code = 9360) glucose referen ce intervals have been updated based o n [place] [employer] inocencio delines (Standards of M edical Care in Diabete s 2016. Diabetes Care 2 016; 39: S13-S22).Fastin g blood glucose:Normal: 70 99 mg/dLImpaire d fasting glucose (increa sed risk for diabetes or pre-diabetes): 100 125 mg/dLDiabet es mellitus: >/=1 26 mg/dL Random blood glucose:Normal: 70 199 mg/dLNote: Random glucose >100 mg /dL is associated with increased risk for diabetes MD [id number] 17:05:49 Test Item Value Reference Range Interpretation [...] conjunction wit h clinical context. MD GibsonUric [id number] 17:05:48 Test Item Value Reference Range Interpretation Comments Uric Acid (test code = 7955) 4.0 mg/dL 2.4-5.7 MD GibsonAlkaline [id number] 17:05:47 Test Item Value Reference Range Interpretation Comments Alk Phos (test code = 4768) 94 U/L 35-104 MD GibsonTotal [id number] 17:05:46 Test Item Value Reference Range Interpretation Comments Total Protein (test code = 7649) 7.2 g/dL 6.4-8.3 MD GibsonAlbumin [id number] 17:05:45 Test Item Value Reference Range Interpretation Comments Albumin Lvl (test code 4.2 See_Comment [Aut omated message] The = 8102) system which ge nerated this result tra nsmitted reference range : 3.5 - 5.2 gm/dL. The refe rence range was not used to interpret this result as normal/abnormal . MD GibsonPhosphorus [id number] 17:05:44 Test Item Value Reference Range Interpretation Comments Phosphorus (test code = 6817) 3.1 mg/dL 2.5-4.5 MD GibsonElectrolyte [id number] 17:05:43 Test Item Value Reference Range Interpretation Comments Sodium Lvl (test code = 139 See_Comment [Au tomated message] The 8272) system which ge nerated this result tra nsmitted reference range : 136 - 145 mEq/L. The reference range was not u sed to interpret this result as normal/abnormal . Potassium Lvl (test 4.2 See_Comment [Automa jenny message] The code = 3601) system which ge nerated this result tra nsmitted reference range : 3.5 - 5.1 mEq/L. The reference range was not u sed to interpret this result as normal/abnormal . Chloride (test code = 102 See_Comment [Auto mated message] The 7864) system which ge nerated this result tra nsmitted reference range : 98 - 107 mEq/L. The refe rence range was not u sed to interpret this result as normal/abnormal . CO2 (test code = 5227) 29 See_Comment [Aut omated message] The system which ge nerated this result tra nsmitted reference range : 22 - 29 mEq/L. The refe rence range was not u sed to interpret this result as normal/abnormal . Anion Gap (test code = 8 See_Comment [Aut omated message] The 9306) system which ge nerated this result tra nsmitted reference range : 4 - 14 mEq/L. The refe rence range was not u sed to interpret this result as normal/abnormal . MD GibsonAspartate [id number] 17:05:42 Test Item Value Reference Range Interpretation Comments AST (test code = 17 U/L See_Comment [Automated message] The 4731) system which ge nerated this result transmit jenny reference range : <=32. The reference range was not used to interpr et this result as lani l/abnormal. MD GibsonCalcium [id number] 17:05:41 Test Item Value Reference Range Interpretation Comments Calcium Lvl (test code = 5258) 10.4 mg/dL 8.4-10.2 H Lab Interpretation (test code = Abnormal 16546-5) MD GibsonAlanine [id number] 17:05:39 Test Item Value Reference Range Interpretation Comments ALT (test code = 16 U/L See_Comment [Automated message] The 1245) system which ge nerated this result transmit jenny reference range : <=33. The reference range was not used to interpr et this result as lani l/abnormal. MD Gibson.Serum [id number] 17:05:38 Test Item Value Reference Range Interpretation Comments Creatinine (test code = 5399) 1.04 mg/dL 0.51-0.95 H Lab Interpretation (test code = Abnormal 97669-9) MD [id number] 17:05:37 Test Item Value Reference Range Interpretation Comments BUN (test code = 5055) 12 mg/dL 6-23 MD GibsonTotal [id number] 16:48:41 Test Item Value Reference Range Interpretation Comments Total Volume (test code = 7650) 2525 mL 9178-0072 H Hrs Collected (test code = 5928) 24 Start Date (test code = 7382) 02/25/2020 End Date (test code = 5510) 02/26/2020 Lab Interpretation (test code = Abnormal 75272-2) MD Gibson[id number] 16:39:26 Test Item Value Reference Range Interpretation Comments Neutrophil % (test code = 36.2 % 42-66 L 42297-4) Lymphocyte % (test code = 45.2 % 24-44 H 737-7) Monocyte % (test code = 13.8 % 2-7 H 744-3) Eosinophil % (test code = 3.3 % 1-4 713-8) Basophil % (test code = 1.2 % 0-1 H 707-0) IGRE % (test code = 0.3 % 0-0.4 IGRE % c ount 97650-1) includes Metamyelocytes, Myelocytes, and Promyelocytes. Neutrophil Abs (test code 2.17 K/uL 1.7-7.3 = 753-4) Lymphocyte Abs (test code 2.71 K/uL 1-4.8 = 732-8) Monocyte Abs (test code = 0.83 K/uL 0.08-0.7 H 743-5) Eosinophil Abs (test code 0.20 K/uL 0.04-0.4 = 712-0) Basophil Abs (test code = 0.07 K/uL 0-0.1 705-4) IG Abs (test code = 0.02 K/uL 0-0.04 96911-1) Lab Interpretation (test Abnormal code = 79978-6) MD Gibson.[id number] 16:39:23 Test Item Value Reference Range Interpretation Comments WBC (test code = 6.0 K/uL 11 6690-2) RBC (test code = 789-8) 3.72 See_Comment L [Au tomated message] The system Fitfully generated this result transmitted ref erence range: 4.00 - 5 .50 M/uL. The refer ence range was not u sed to interpret this result as normal/abnor mal. Hgb (test code = 718-7) 12.8 See_Comment [Au tomated message] The system Fitfully generated this result transmitted ref erence range: 12.0 - 1 6.0 gm/dL. The refe rence range was not u sed to interpret this result as normal/abnor mal. Hct (test code = 37.5 % 37-47 4544-3) MPV (test code = 787-2) 12.6 fL 4-10.4 H MCH (test code = 785-6) 34.4 pg 27-31 H MCHC (test code = 34.1 See_Comment [Automate d message] 786-4) The system Fitfully generated this result transmitted ref erence range: 31.0 - 3 6.0 gm/dL. The refe rence range was not u sed to interpret this result as normal/abnor mal. RDW-SD (test code = 65.0 fL 35.1-46.3 H 42694-0) RDW-CV (test code = 17.5 % 12-15.5 H 788-0) Platelet count (test 217 K/uL 140-440 code = 777-3) INRBC (test code = 0.0 % See_Comment The INRBC (instrument 5974) NRBC) value ref lects the enumeration of nucleated red b lood cells contained in a 200uL sampleof whole blood analyzed by the instrument. Thi s value maydiffer from the NRBC value repo rted in a manual differential,wh ich is based on a 100 cell differential. [Automated mess age] The system Fitfully generated this result transmitted ref erence range: <=0.0. T he reference range was not used to int erpret this result as normal/abnormal . Lab Interpretation Abnormal (test code = 90500-7) MD Gibson
[2020-08-06] MEDS ORDERED: MORPHINE 2 MG/ML SYR ONE (22:34)
[2020-08-06] MEDS ORDERED: ONDANSETRON 4 MG/2 ML VIAL ONE (22:34)
[2020-08-06 22:40] LABS: Protime INR 1.07
[2020-08-06 22:54] LABS: Absolute Lymphocytes (CBC) 2.4 K/uL (0.7-4.9); Albumin 3.6 g/dL (3.4-5.0); Basophils % 0.7 % (0-1.3); Bilirubin Direct 0.1 mg/dL (0-0.2); Bilirubin Total 0.4 mg/dL (0.2-1.0); Hematocrit 38.7 % (36.0-45.0); Lymphocytes % 47.1 % (15.3-44.8); MPV 12.2 fL (7.6-11.3); Potassium 3.6 mmol/L (3.5-5.1); Protein, Total 7.1 g/dL (6.4-8.2); RBC Red Blood Cell Count 3.86 M/uL (3.86-4.86); Troponin (Emerg Dept Use Only) 0.03 ng/mL (0.0-0.045)
--- NOTE | 2020-08-07 00:10 | ER ---
Nurse's Notes [facility] Name: Lindsey Peter Age: 69 yrs Sex: Female : 1950 Arrival Date: 08/06/2020 Time: 19:23 Bed 17 Private MD: Mitchell Clark R Diagnosis: Chest pain, unspecified;Back Pain, Upper Presentation: 08/06 19:28 Chief complaint: Patient states: I am having back pain that has been there since jbMonday. I was here for lab work and my blood pressure was 200 over something. 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 My Dr. change my Bp med to Losartan-HCTZ. The pain has not gotten better. Coronavirus screen: Client denies travel out of the [place] in the last 14 days. At this time, the client does not indicate any symptoms associated with coronavirus-19. Ebola Screen: No symptoms or risks identified at this time. Initial Sepsis Screen: Does the patient meet any 2 criteria? No. Patient's initial sepsis screen is negative. Does the patient have a suspected source of infection? No. Patient's initial sepsis screen is negative. Risk Assessment: Do you want to hurt yourself or someone else? Patient reports no desire to harm self or others. Onset of symptoms was August 04, 2020. Transition of care: patient was not received from another setting of care. 19:28 Method Of Arrival: Ambulatory 4 19:28 Acuity: IVANA 2 jb4 Historical: - Allergies: 19:38 No Known Allergies; jb4 - Home Meds: 19:38 atorvastatin 80 mg Oral tab 1 tab once daily [Active]; Revlimid Oral [Active]; jb4 08/07 02:18 losartan-hydrochlorothiazide 100-25 mg oral tab 1 tab once daily [Active]; Lumigan 0.01 sf % ophthalmic drop [Active]; aspirin 81 mg Oral TbEC 1 tab once daily [Active]; Vitamin D3 400 unit oral tab twice a day [Active]; calcium plus D3 [Active]; - PMHx: 08/06 19:38 CVA; High Cholesterol; Hypertension; meningitis; multiple myeloma; Myocardial jb4 infarction; - PSHx: 08/07 02:18 Unable to obtain; sf - Immunization history:: Adult Immunizations up to date. - Social history:: Smoking status: Patient/guardian denies using tobacco, the patient reports quitting approximately 6 years ago. Screenin/29 22:00 Abuse screen: Denies threats or abuse. Denies injuries from another. Nutritional sf screening: No deficits noted. Tuberculosis screening: No symptoms or risk factors identified. Fall Risk None identified. IV access (20 points). Total Mckee Fall Scale indicates No Risk (0-24 pts). Assessment: 22:00 General: Appears in no apparent distress. comfortable, Behavior is calm, cooperative. sf Pain: Complains of pain in back. Neuro: Level of Consciousness is awake, alert, Oriented to person, place, time, situation. Cardiovascular: Reports back pain Denies chest pain, lightheadedness, nausea, shortness of breath, Patient's skin is warm and dry. Rhythm is sinus bradycardia. Respiratory: No deficits noted. Airway is patent Respiratory effort is even, unlabored, Respiratory pattern is regular, symmetrical. GI: No deficits noted. No signs and/or symptoms were reported involving the gastrointestinal system. : No deficits noted. No signs and/or symptoms were reported regarding the genitourinary system. Derm: No deficits noted. No signs and/or symptoms reported regarding the dermatologic system. Musculoskeletal: No deficits noted. No signs and/or symptoms reported regarding the musculoskeletal system. 23:00 Reassessment: Patient appears in no apparent distress at this time. Patient and/or sf family updated on plan of care and expected duration. Pain level reassessed. Patient is alert, oriented x 3, equal unlabored respirations, skin warm/dry/pink. Patient states feeling better. Patient states symptoms have improved. 08/07 00:00 Reassessment: Patient appears in no apparent distress at this time. No changes from sf previously documented assessment. Patient and/or family updated on plan of care and expected duration. Pain level reassessed. Patient is alert, oriented x 3, equal unlabored respirations, skin warm/dry/pink. 01:00 Reassessment: Patient appears in no apparent distress at this time. No changes from sf previously documented assessment. Patient and/or family updated on plan of care and expected duration. Pain level reassessed. Patient is alert, oriented x 3, equal unlabored respirations, skin warm/dry/pink. Family updated on waiting for COVID result before getting room assignment. :57 Reassessment: Patient appears in no apparent distress at this time. No changes from sf previously documented assessment. Patient and/or family updated on plan of care and expected duration. Pain level reassessed. Patient is alert, oriented x 3, equal unlabored respirations, skin warm/dry/pink. Vital Signs: 08/06 19:28 BP 202 / 85; Pulse 62; Resp 16; Temp 97.0(TE); Pulse Ox 100% on R/A; Weight 66.22 kg jb4 (R); Height 5 ft. 1 in. (154.94 cm) (R); Pain 4/10; 22:16 BP 184 / 70; Pulse 54; Resp 16; Pulse Ox 100% ; sf 22:30 BP 172 / 61; Pulse 53; Resp 16; Pulse Ox 100% ; sf 23:00 BP 161 / 59; Pulse 55; Resp 16; Pulse Ox 100% ; sf 23:30 BP 160 / 57; Pulse 54; Resp 16; Pulse Ox 100% ; sf 08/07 00:00 BP 137 / 51; Pulse 54; Resp 16; Pulse Ox 98% ; sf 01:57 BP 120 / 54; Pulse 52; Resp 16; Pulse Ox 97% ; sf 08/06 19:28 Body Mass Index 27.59 (66.22 kg, 154.94 cm) jb4 ED Course: 08/06 19:23 Patient arrived in ED. es 19:24 Mitchell Clark MD is Private Physician. es 19:32 Triage completed. jb4 19:37 EKG done, by ED staff, reviewed by Boogie Guerin MD. sf 19:38 Arm band placed on right wrist. jb4 21:11 Boogie Guerin MD is Attending Physician. 7 21:48 Jeffry Becker, FLORES is Primary Nurse. sf 22:00 Patient has correct armband on for positive identification. Placed in gown. Bed in low sf position. Call light in reach. Side rails up X 1. engine monitor on. Pulse ox on. NIBP on. Door closed. Noise minimized. Visitors limited. Lights dimmed. Warm blanket given. Verbal reassurance given. 22:05 Inserted saline lock: 20 gauge in left antecubital area, using aseptic technique. Blood sf collected. 22:05 Initial lab(s) drawn, by nc, sent to lab. sf 22:10 X-ray(s) taken. 22:30 XRAY Chest (1 view) In Process Unspecified. EDMS 08/07 00:09 Jacob Mccabe MD is Hospitalizing Provider. [facility] 00:30 COVID swab sent to lab. 01:58 No provider procedures requiring assistance completed. Patient admitted, IV remains in sf place. Administered Medications: 08/06 22:18 Drug: morphine 2 mg Route: IVP; Site: left antecubital; sf 08/07 00:16 Follow up: Response: No adverse reaction; Pain is decreased 08/06 22:18 Drug: Zofran (Ondansetron) 4 mg Route: IVP; Site: left antecubital; 08/07 00:16 Follow up: Response: No adverse reaction; Nausea is decreased Outcome: 00:09 Decision to Hospitalize by Provider. [facility] 01:58 Condition: stable 01:58 Instructed on the need for admit. 02:19 Admitted to Tele accompanied by nurse, via stretcher, room 214, Report called to jesus Raphael RN 02:53 Patient left the ED. mw2 Signatures: Dispatcher [employer] EDMS Blossom Woods James, RN RN jb4 Carlo Turner 2 Boogie Guerin MD MD 7 Jeffry Becker RN RN sf Corrections: (The following items were deleted from the chart) 08/06 22:28 22:00 Cardiovascular: Reports back pain Denies chest pain, lightheadedness, nausea, sf shortness of breath, Patient's skin is warm and dry. Rhythm is sinus rhythm 08/07 02:18 08/06 19:38 Home Meds: aspirin 81 mg Oral chew 1 tab once daily; jb4 jesus
--- NOTE | 2020-08-07 00:11 | EDPHYS ---
Physician Documentation [facility] Name: Lindsey Peter Age: 69 yrs Sex: Female : 1950 Arrival Date: 08/06/2020 Time: 19:23 Bed 17 Private MD: Mitchell Clark R ED Physician Boogie Guerin HPI: 08/06 22:28 This 69 yrs old Female presents to ER via Ambulatory with complaints of Back mh7 Pain, pt state same symptom with last heart attack. 22:28 The patient presents with pain that is acute, with no known mechanism of injury. The mh7 symptoms are located in the thoracic area. Onset: The symptoms/episode began/occurred 2 day(s) ago. The pain does not radiate. Associated signs and symptoms: Pertinent positives: chest pain, nausea, Pertinent negatives: abdominal pain, constipation, dysuria, fever, headache, hematuria, incontinence, numbness, tingling, urinary retention, vomiting, weakness. The problem was sustained from unknown cause. Modifying factors: The patient symptoms are alleviated by nothing, the patient symptoms are aggravated by nothing. Severity of symptoms: At their worst the symptoms were moderate, yesterday, in the emergency department the symptoms have improved, moderately. The patient has experienced a previous episode, approximately 3 years ago. Historical: - Allergies: 19:38 No Known Allergies; jb4 - Home Meds: 19:38 atorvastatin 80 mg Oral tab 1 tab once daily [Active]; Revlimid Oral [Active]; jb4 08/07 02:18 losartan-hydrochlorothiazide 100-25 mg oral tab 1 tab once daily [Active]; Lumigan 0.01 sf % ophthalmic drop [Active]; aspirin 81 mg Oral TbEC 1 tab once daily [Active]; Vitamin D3 400 unit oral tab twice a day [Active]; calcium plus D3 [Active]; - PMHx: 08/06 19:38 CVA; High Cholesterol; Hypertension; meningitis; multiple myeloma; Myocardial jb4 infarction; - PSHx: 08/07 02:18 Unable to obtain; sf - Immunization history:: Adult Immunizations up to date. - Social history:: Smoking status: Patient/guardian denies using tobacco, the patient reports quitting approximately 6 years ago. ROS: 08/06 22:28 Constitutional: Negative for fever, chills, and weight loss, Eyes: Negative for injury, mh7 pain, redness, and discharge, ENT: Negative for injury, pain, and discharge, Neck: Negative for injury, pain, and swelling, Respiratory: Negative for shortness of breath, cough, wheezing, and pleuritic chest pain, : Negative for injury, bleeding, discharge, and swelling, MS/Extremity: Negative for injury and deformity, Skin: Negative for injury, rash, and discoloration, Neuro: Negative for headache, weakness, numbness, tingling, and seizure, Psych: Negative for depression, anxiety, suicide ideation, homicidal ideation, and hallucinations, Allergy/Immunology: Negative for hives, rash, and allergies, Endocrine: Negative for neck swelling, polydipsia, polyuria, polyphagia, and marked weight changes, Hematologic/Lymphatic: Negative for swollen nodes, abnormal bleeding, and unusual bruising. Exam: 22:28 Constitutional: This is a well developed, well nourished patient who is awake, alert, mh7 and in no acute distress. Head/Face: Normocephalic, atraumatic. Eyes: Pupils equal round and reactive to light, extra-ocular motions intact. Lids and lashes normal. Conjunctiva and sclera are non-icteric and not injected. Cornea within normal limits. Periorbital areas with no swelling, redness, or edema. Neck: Trachea midline, no thyromegaly or masses palpated, and no cervical lymphadenopathy. Supple, full range of motion without nuchal rigidity, or vertebral point tenderness. No Meningismus. Chest/axilla: Normal chest wall appearance and motion. Nontender with no deformity. No lesions are appreciated. Cardiovascular: Regular rate and rhythm with a normal S1 and S2. No gallops, murmurs, or rubs. Normal PMI, no JVD. No pulse deficits. Respiratory: Lungs have equal breath sounds bilaterally, clear to auscultation and percussion. No rales, rhonchi or wheezes noted. No increased work of breathing, no retractions or nasal flaring. Abdomen/GI: Soft, non-tender, with normal bowel sounds. No distension or tympany. No guarding or rebound. No evidence of tenderness throughout. Back: No spinal tenderness. No costovertebral tenderness. Full range of motion. Skin: Warm, dry with normal turgor. Normal color with no rashes, no lesions, and no evidence of cellulitis. MS/ Extremity: Pulses equal, no cyanosis. Neurovascular intact. Full, normal range of motion. Neuro: Awake and alert, GCS 15, oriented to person, place, time, and situation. Cranial nerves II-XII grossly intact. Motor strength 5/5 in all extremities. Sensory grossly intact. Cerebellar exam normal. Normal gait. Psych: Awake, alert, with orientation to person, place and time. Behavior, mood, and affect are within normal limits. Vital Signs: 19:28 BP 202 / 85; Pulse 62; Resp 16; Temp 97.0(TE); Pulse Ox 100% on R/A; Weight 66.22 kg jb4 (R); Height 5 ft. 1 in. (154.94 cm) (R); Pain 4/10; 22:16 BP 184 / 70; Pulse 54; Resp 16; Pulse Ox 100% ; sf 22:30 BP 172 / 61; Pulse 53; Resp 16; Pulse Ox 100% ; sf 23:00 BP 161 / 59; Pulse 55; Resp 16; Pulse Ox 100% ; sf 23:30 BP 160 / 57; Pulse 54; Resp 16; Pulse Ox 100% ; sf 08/07 00:00 BP 137 / 51; Pulse 54; Resp 16; Pulse Ox 98% ; sf 01:57 BP 120 / 54; Pulse 52; Resp 16; Pulse Ox 97% ; sf 08/06 19:28 Body Mass Index 27.59 (66.22 kg, 154.94 cm) jb4 MDM: 00:07 Differential diagnosis: chronic back pain, Metastatic Disease Osteoarthritis mh7 Osteoporosis chest pain. Data reviewed: vital signs, nurses notes, old medical records, lab test result(s), cardiac enzymes, CBC, electrolytes, EKG, radiologic studies, plain films. Data interpreted: Pulse oximetry: on room air is 100 %. Interpretation: normal. Counseling: I had a detailed discussion with the patient and/or guardian regarding: the historical points, exam findings, and any diagnostic results supporting the discharge/admit diagnosis, the presence of at least one elevated blood pressure reading (>120/80) during this emergency department visit, lab results, radiology results, the need for further work-up and treatment in the hospital. Response to treatment: the patient's symptoms have markedly improved after treatment. 00:09 Patient medically screened. mh7 08/06 21:36 Order name: Basic Metabolic Panel [facility] 08/06 21:36 Order name: CBC with Diff [facility] 08/06 21:36 Order name: LFT's [facility] 08/06 21:36 Order name: Magnesium; Complete Time: 23:04 [facility] 08/06 21:36 Order name: NT PRO-BNP [facility] 08/06 21:36 Order name: PT-INR; Complete Time: 23:04 [facility] 08/06 21:36 Order name: Troponin (emerg Dept Use Only); Complete Time: 23:04 [facility] 08/06 21:36 Order name: XRAY Chest (1 view) [facility] 08/06 21:37 Order name: Basic Metabolic Panel; Complete Time: 23:04 [facility] 08/06 21:37 Order name: Liver (Hepatic) Function; Complete Time: 23:04 [facility] 08/06 21:37 Order name: NT PRO-BNP; Complete Time: 23:04 [facility] 08/06 21:37 Order name: CBC with Automated Diff; Complete Time: 23:40 [facility] 08/07 01:31 Order name: SARS-COV-2 RT PCR [facility] 08/06 21:36 Order name: EKG; Complete Time: 21:37 [facility] 08/06 21:36 Order name: Cardiac monitoring; Complete Time: 22:03 [facility] 08/06 21:36 Order name: EKG - Nurse/Tech; Complete Time: 22:03 [facility] 08/06 21:36 Order name: IV Saline Lock; Complete Time: 22:24 [facility] 08/06 21:36 Order name: Labs collected and sent; Complete Time: 22:24 [facility] 08/06 21:36 Order name: O2 Per Protocol; Complete Time: 22:03 [facility] 08/06 21:36 Order name: O2 Sat Monitoring; Complete Time: 22:03 [facility] Administered Medications: 08/06 22:18 Drug: morphine 2 mg Route: IVP; Site: left antecubital; 08/07 00:16 Follow up: Response: No adverse reaction; Pain is decreased 08/06 22:18 Drug: Zofran (Ondansetron) 4 mg Route: IVP; Site: left antecubital; 08/07 00:16 Follow up: Response: No adverse reaction; Nausea is decreased sf Disposition: 08/07/20 00:09 Hospitalization ordered by Jacob Mccabe for Observation. Preliminary diagnosis are Chest pain, unspecified, Back Pain, Upper. - Bed requested for Telemetry/MedSurg (observation). - Status is Observation. mw2 - Condition is Stable. - Problem is new. - Symptoms have improved. Signatures: Dispatcher [employer] EDMI Edita Jones, RN RN Michael Miller RN RN jb4 Carlo Turner mw2 Boogie Guerin MD MD 7 Jeffry Becker RN RN sf Corrections: (The following items were deleted from the chart) 00:45 00:40 CORONAVIRUS+MR.LAB.BRZ ordered. [facility] 01:48 00:09 Hospitalization Ordered by Jacob Mccabe MD for Observation. Preliminary cg diagnosis is Chest pain, unspecified; Back Pain, Upper. Bed requested for Telemetry/MedSurg (observation). Status is Observation. Condition is Stable. Problem is new. Symptoms have improved. [facility] 02:18 08/06 19:38 Home Meds: aspirin 81 mg Oral chew 1 tab once daily; jb4 08/07 02:53 01:48 08/07/2020 00:09 Hospitalization Ordered by Jacob Mccabe MD for Observation. mw2 Preliminary diagnosis is Chest pain, unspecified; Back Pain, Upper. Bed requested for Telemetry/MedSurg (observation). Status is Observation. Condition is Stable. Problem is new. Symptoms have improved. cg
--- NOTE | 2020-08-07 01:43 | P.HP ---
Certification for Inpatient Patient admitted to: Observation With expected LOS: <2 Midnights Patient will require the following post-hospital care: None Practitioner: I am a practitioner with admitting privileges, knowledge of patient current condition, hospital course, and medical plan of care. Services: Services provided to patient in accordance with Admission requirements found in Title 42 Section 412.3 of the Code of Federal Regulations Patient History Date of Service: 08/07/20 Reason for admission: ACS rule out History of Present Illness: 69-year-old female with history of CAD, hypertension, hyperlipidemia presents emergency department for upper back pain. Patient reports the pain feels exactly like by last time she had an [facility], patient does report some associated nausea. Bold workup in the emergency department significant for initial troponin 0.03 BNP 451 chest x-ray unremarkable EKG without acute changes, nonspecific. ED provider wishes to admit for further evaluation and management/ACS rule out. Allergies No Known Drug Allergies Allergy (Verified 06/09/16 21:11) Unknown No Known Allergies Allergy (Uncoded 03/31/17 20:46) Unknown Home Medications: Aspirin [Adult Low Dose Aspirin EC] 1 tab PO DAILY 06/09/16 Atorvastatin Calcium [Lipitor] 80 mg PO DAILY #90 tablet 06/12/16 Losartan Potassium [Cozaar*] 50 mg PO DAILY #90 tablet 06/12/16 Metoprolol Succinate [Toprol Xl*] 25 mg PO DAILY #90 tab 06/12/16 Lansoprazole [Prevacid] 30 mg PO DAILY 09/08/17 Bisacodyl [Dulcolax*] 10 mg DE DAILY PRN supp 09/10/17 Ciprofloxacin HCl [Cipro 500 MG Tablet] 500 mg PO BID #14 tab 09/10/17 Codeine/APAP [Tylenol W/Codeine #3 tab] 1 tab PO Q6HP PRN #30 tab 09/10/17 - Past Medical/Surgical History Diabetic: No -: CAD, [facility] -: Hypertension -: High Cholesterol -: Multiple myeloma-in remission -: tubal ligation -: Stem-cell transplant Psychosocial/ Personal History: Patient is unemployed, lives with her - Family History Mother -: Heart disease, Stroke Notes: dementia Father -: Cancer Notes: colon - Social History Smoking Status: Former smoker Alcohol use: No CD- Drugs: No Caffeine use: Yes Place of Residence: Home Review of Systems 10-point ROS is otherwise unremarkable Gastrointestinal: Nausea, As per HPI Musculoskeletal: Back Pain, As per HPI Physical Examination - Physical Exam General: Alert, In no apparent distress HEENT: Atraumatic, PERRLA, Mucous membr. moist/pink Neck: Supple, 2+ carotid pulse no bruit, No LAD Respiratory: Clear to auscultation bilaterally, Normal air movement Cardiovascular: Regular rate/rhythm, Normal S1 S2 Gastrointestinal: Normal bowel sounds, No tenderness Musculoskeletal: No tenderness Integumentary: No rashes Neurological: Normal speech, Normal strength at 5/5 x4 extr, Normal tone, Normal affect - Studies Laboratory Data (last 24 hrs) 08/06/20 22:05: PT 12.3, INR 1.07 08/06/20 22:05: WBC 5.10, Hgb 12.8, Hct 38.7, Plt Count 199 08/06/20 22:05: Sodium 135 L, Potassium 3.6, BUN 24 H, Creatinine 1.18, Glucose 92, Magnesium 2.0, Total Bilirubin 0.4, AST 13 L, ALT 17, Alkaline Phosphatase 84 Assessment and Plan - Plan Assessment Atypical chest pain/back pain rule out ACS Hypertension, hyperlipidemia Plan Atypical chest pain/back pain rule out ACS: Trend troponins, monitor on telemetry, cardiology consult in place. Continue daily aspirin, statin therapy. DVT prophylaxis Lovenox 40 mg subcutaneous once daily. Hypertension, hyperlipidemia: Obtain and continue home medications. Lipid panel with morning labs. Discharge Plan: Home Plan to discharge in: 24 Hours - Advance Directives Does patient have a Living Will: No Does patient have a Durable POA for Healthcare: No - Code Status/Comfort Care Code Status Assessed: Yes (Full code) Critical Care: No Time Spent Managing Pts Care (In Minutes): 55
[2020-08-07 03:08] VITALS: O2SAT 97
[2020-08-07] MEDS ORDERED: ONDANSETRON 4 MG/2 ML VIAL IV PRN (03:10)
[2020-08-07 03:16] VITALS: BMI 27.5
[2020-08-07 05:41] LABS: Absolute Lymphocytes (CBC) 1.4 K/uL (0.7-4.9); Basophils % 0.6 % (0-1.3); Hematocrit 36.6 % (36.0-45.0); Lymphocytes % 30.6 % (15.3-44.8); MPV 11.3 fL (7.6-11.3); RBC Red Blood Cell Count 3.66 M/uL (3.86-4.86)
[2020-08-07 06:05] LABS: Magnesium 2.2 mg/dL (1.8-2.4); Potassium 3.6 mmol/L (3.5-5.1); Thyroid Stimulating Hormone 1.25 uIU/mL (0.360-3.740); Troponin I 0.02 ng/mL (0.0-0.045)
[2020-08-07 08:27] VITALS: BP 135/60; TEMP 97.1
--- NOTE | 2020-08-07 08:36 | RAD REPORT ---
EXAM DESCRIPTION: RAD - Chest Single View - 08/06/2020 10:30 pm CLINICAL HISTORY: CHEST PAIN Chest pain. COMPARISON: Chest Pa And Lat (2 Views) dated 03/13/2020; Chest Pa And Lat (2 Views) dated 04/27/2019; Chest Single View dated 01/20/2018; Chest Pa And Lat (2 Views) dated 09/08/2017 FINDINGS: Portable technique limits examination quality. The lungs are grossly clear. The heart is normal in size. Old left posterior rib fractures. IMPRESSION: No acute intrathoracic process suspected.
[2020-08-07 08:37] LABS: Blood Morphology Comment NOT SEEN (NOT SEEN); Platelet Estimate ADEQ
[2020-08-07] MEDS ORDERED: ASPIRIN EC 81 MG TAB PO SCH (09:00)
[2020-08-07] MEDS ORDERED: POTASSIUM CL SA 10 MEQ TAB PO ONE (09:00)
[2020-08-07] MEDS ORDERED: ENOXAPARIN 40 MG/0.4 ML SQ SCH (09:00)
[2020-08-07] MEDS ORDERED: ATORVASTATIN 40 MG TAB PO SCH (21:00)
--- NOTE | 2020-08-07 21:57 | P.DS ---
Admission Date: 08/07/20 Discharge Date: 08/07/20 Disposition: ROUTINE DISCHARGE Discharge Condition: GOOD Reason for Admission: ACS rule out Consultations: Cardiology - Dr. Machado Procedures: CXR (08/06): The lungs are grossly clear. The heart is normal in size. Old left posterior rib fractures. Problem List: Atypical chest pain/R back pain rule out ACS Herpes Zoster Hypertension Hyperlipidemia Brief History of Present Illness: 69-year-old female with history of CAD, hypertension, hyperlipidemia presents emergency department for upper back pain. Patient reports the pain feels exactly like by last time she had an RI, patient does report some associated nausea. Bold workup in the emergency department significant for initial troponin 0.03 BNP 451 chest x-ray unremarkable EKG without acute changes, nonspecific. ED provider wishes to admit for further evaluation and management/ACS rule out. Hospital Course: Troponin remained negative. Cardiology consulted and recommended no further inpatient evaluation/procedure at this time. Recommended follow up in office for further workup. Patient was concerned this may be recurrence of her multiple myeloma, discussed possibilities of compression fracture. Patient stated she has an upcoming appointment with her oncologist in ~2 weeks to surveillance lab work. Stated she was also due for an updated MRI as well. At this point will not obtain further imaging as patient does not need to repeat these. She will follow up with her PCP and Oncologist. She stated she will call her oncologist to schedule further imaging. Patient also reported itchy/painful vesicular rash on L later chest. This had appearance of early herpes zoster. She was discharged with prescription for valtrex. Vital Signs/Physical Exam: Physical Exam General: Alert, In no apparent distress HEENT: Atraumatic, PERRLA, Mucous membr. moist/pink Respiratory: Clear to auscultation bilaterally, Normal air movement Cardiovascular: Regular rate/rhythm, Normal S1 S2 Gastrointestinal: Normal bowel sounds, No tenderness Musculoskeletal: No tenderness Integumentary: 3 groups vesciular erythematous lesions on L lateral chest (@anterior-axillary line) Neurological: Normal speech, Normal strength at 5/5 x4 extr, Normal affect Temp Pulse Resp BP Pulse Ox 97.1 F 54 16 135/60 99 08/07/20 08:00 08/07/20 08:00 08/07/20 08:00 08/07/20 08:00 08/07/20 08:00 Laboratory Data at Discharge: WBC 4.60 K/uL (4.3-10.9) 08/07/20 05:10 Hgb 12.1 g/dL (12.0-15.0) 08/07/20 05:10 Hct 36.6 % (36.0-45.0) 08/07/20 05:10 Plt Count 188 K/uL (152-406) 08/07/20 05:10 PT 12.3 SECONDS (9.5-12.5) 08/06/20 22:05 INR 1.07 08/06/20 22:05 Sodium 139 mmol/L (136-145) 08/07/20 05:10 Potassium 3.6 mmol/L (3.5-5.1) 08/07/20 05:10 BUN 22 mg/dL (7-18) H 08/07/20 05:10 Creatinine 1.04 mg/dL (0.55-1.3) 08/07/20 05:10 Glucose 101 mg/dL (74-106) 08/07/20 05:10 Magnesium 2.2 mg/dL (1.8-2.4) 08/07/20 05:10 Total Bilirubin 0.4 mg/dL (0.2-1.0) 08/06/20 22:05 AST 13 U/L (15-37) L 08/06/20 22:05 ALT 17 U/L (12-78) 08/06/20 22:05 Alkaline Phosphatase 84 U/L (45-117) 08/06/20 22:05 Troponin I Cancelled 08/07/20 11:10 Triglycerides 101 mg/dL (<150) 08/07/20 05:10 Cholesterol 108 mg/dL (<200) 08/07/20 05:10 HDL Cholesterol 53 mg/dL (40-60) 08/07/20 05:10 Cholesterol/HDL Ratio 2.04 08/07/20 05:10 Home Medications: Atorvastatin Calcium [Lipitor] 80 mg PO DAILY #90 tablet 06/12/16 Losartan Potassium [Cozaar*] 50 mg PO DAILY #90 tablet 06/12/16 Aspirin [Low Dose Aspirin EC] 81 mg PO DAILY 08/07/20 Bimatoprost [Lumigan Opthalmic Drops*] 1 drop EACH EYE BEDTIME 08/07/20 Calcium Carbonate/Vitamin D3 [Calcium 600 mg-D3 20 Mcg Tab] 1 each PO BID 08/07/20 Cholecalciferol (Vitamin D3) [Vitamin D3] 400 unit PO BID 08/07/20 Lenalidomide [Revlimid] 10 mg PO DAILY 08/07/20 Valacyclovir HCl [Valacyclovir] 1,000 mg PO TID 7 Days #21 tablet 08/07/20 New Medications: Valacyclovir HCl [Valacyclovir] 1,000 mg PO TID 7 Days #21 tablet Physician Discharge Instructions: You were evaluated for possible heart attack due to having pain similar to your prior episode. Your cardiac enzymes remained normal, you did not have EKG changes, effectively ruling out a heart attack. Dr. Machado recommends you continue to follow up with him as an outpatient in the next few weeks. Your pain may be from your bones. As discussed, continue with your upcoming appointment on 08/18. Discuss with your PCP or Oncologist to consider further imaging - CT vs MRI to further evaluate. Diet: AHA Activity: Ad scooter Followup: Aashish Machado MD [ACTIVE - CAN ADMIT] - (call to schedule appointment) Mitchell Clark MD [Primary Care Provider] - (Call to schedule appointment) Time spent managing pt's care (in minutes): 35
--- NOTE | 2020-08-08 07:26 | EKG ---
Test Date: 2020-08-06 Test Time: 19:37:36 Media Theorist And Author Of: MARY MEASUREMENT RESULTS: Intervals: Rate: 58 TX: 174 QRSD: 88 QT: 470 QTc: 461 Hensley: P: 65 TX: 174 QRS: 66 T: 76 INTERPRETIVE STATEMENTS: Sinus bradycardia Possible Right ventricular hypertrophy Nonspecific T wave abnormality Abnormal ECG Compared to ECG 03/13/2020 11:52:45 T-wave abnormality now present ST (T wave) deviation no longer present Possible ischemia no longer present Electronically Signed On 08-08-20 07:22:31 CDT by Aashish Machado
--- NOTE | 2020-08-11 12:24 | CON ---
Date of Consultation: 08/07/2020 Reason For Consultation: Chest pain. History Of Present Illness: Ms. Peter is a 68-year-old woman. She has been follow ed by me for years. She has a history of CVA and severe carotid stenosis since March s urgery by in [place]. This has been complicated secondary to COVID and secondary to i nsurance and secondary to CD issues. Follow up on that. She has a history of hypertension, dyslipid emia, multiple myeloma. Recent negative cardiac workup within the last year or two, came in with rig ht upper shoulder pain that has been going on for 3 days with no vomiting, diaphoresis, PND, orthopne a, pedal edema, palpitations, or syncope. EKG is done. Past Medical History: As stated above. Allergies: NEGATIVE. Social History: Negative for tobacco or alcohol. Family History: Positive for heart disease, dyslipidemia, hypertension. Medications: Include aspirin, Lipitor, Cozaar. Physical Examination: Vital signs: Stable. Afebrile. HEENT: Negative. Neck: Supple. No carotid bruit. No JVD, no thyromegaly. Chest: Clear. Cardiac: Regular rate with an S4 gallops. Benign. Revealed no clubbing or edema. Diagnostic Data: Impression And Plan: Atypical chest pain, most likely musculoskeletal. [facility] [place] [facility] [place] her . Comfortable with her going home. coronary syndrome. Troponin is negative. BNP is negative. EKG is negative. Chest x-ray is negative. Her biggest problem really is her carotid stenosis that needs to be fixed f marylu up with as soon as possible. Her other problems include hypertension, dyslipide jordan, multiple myeloma, stable. She can go home today. SHELLY/JOSEF Voice ID: [id number] Report ID: [id number]
== END 2020-08-07 11:56 | disposition home or self-care (01) ==
LOC: ER 19:18 → ERHOLD 08-07 01:07 → 2ND 08-07 02:22
PROVIDERS: ADMIT Hospitalist; ATTEND Hospitalist
DX: R07.89 Other chest pain (principal); M54.89 Other dorsalgia; B02.9 Zoster without complications; I10 Essential (primary) hypertension; R11.0 Nausea; I25.10 Atherosclerotic heart disease of native coronary artery without angina pectoris; I25.2 Old myocardial infarction; I65.29 Occlusion and stenosis of unspecified carotid artery; E78.5 Hyperlipidemia, unspecified; E78.00 Pure hypercholesterolemia, unspecified; C90.01 Multiple myeloma in remission; Z20.822 Contact with and (suspected) exposure to COVID-19; Z86.73 Personal history of transient ischemic attack (TIA), and cerebral infarction without residual deficits; Z87.891 Personal history of nicotine dependence; Z86.61 Personal history of infections of the central nervous system; Z79.82 Long term (current) use of aspirin; Z79.899 Other long term (current) drug therapy; Z94.84 Stem cells transplant status; Z98.51 Tubal ligation status; Z82.49 Family history of ischemic heart disease and other diseases of the circulatory system; Z82.3 Family history of stroke; Z80.0 Family history of malignant neoplasm of digestive organs
CPT/HCPCS: 93005; 85025 ×2; 80048 ×2; 36415; 83735 ×2; 85610; 80061; 80076; 84443; 84484 ×2; 84439; 83880; 71045; 96375; 96374; 99285; U0003; J1650; J2270; J2405; G0378 ×2

== ENCOUNTER 2020-09-02 22:46 | Observation (INO) | payer OTHER ==
--- OUTSIDE RECORDS SUMMARY | 2020-09-02 22:50 | XMS REPORT | Continuity of Care Document ---
:1950 Author Organization [facility] t Address [facility] [place] [address] Care Team Providers Name Role Phone Dinh SINGH Primary Care Physician Unavailable SYSTEM, NOT IN Attending Clinician Unavailable Zeina Ventura MD Attending Clinician [phone] Lorenza GARCIA, J. Attending Clinician Amy ADAM Attending Clinician Gloria TANNER Attending Clinician Unavailable Aquiles GARCIA CCristofer Attending Clinician Karen FRANCES Attending Clinician Unavailable Maria E Michel Attending Clinician Rodolfo Das APN Attending Clinician Antonella GARCIA, Mariangel Attending Clinician Greg Munguia MD Attending Clinician Rubi GARCIA Attending Clinician Андрей Anthony MD Attending Clinician FABIEN Admitting Clinician Unavailable Payers Payer Name Policy Type Policy Effective Expiration Source Number Date Date TEXANPLUSTEXANPLUS [id number] 2019 Carlota lizama [id number] 2019-Pr 00:00:00 M ronak chackoentHMO WELLCARE MEDICARE [id number] 2018 MD Terry and[facility] MED[facility] [id number] 019-PresentMedicare WELLCARE MEDICARE MGD [id number] 2020 SANTOS [place] [facility] 00:00:00 - Medical [id number] 2020 C enter -Present Problems Condition Condition Condition Status Onset Resolution Last Treating Co mments Source Name Details Category Date Date Treatment Clinician Date Carotid Carotid Disease Active [place] stenosis, stenosis, 4-20 Meth shen right right 00:00: st 00 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 in Myeloma in 5-13 Fa clyde remission Remission 00:00: Prac tic 00 e Hyperchole Hyperchole Problem Active V illage sterolemia sterolemia 5-13 Fa clyde 00:00: Practic 00 e Glaucoma Glaucoma Problem Active Corley ge 5-13 Family 00:00: Practic 00 e Essential Essential Problem Active Royal william hypertensi Hypertensi 5-13 Fa clyde on on 00:00: Practic 00 e 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 00 Small Small Disease Active 2017-04 bowel bowel 05-11 Anderso obstructio obstructio 00:00: n n n 00 Diarrhea Diarrhea Disease Active 2017-04 05-06 Anderso 00:00: n 00 Mucositis Mucositis Disease Active 2017-04 - Anderso 00:00: n 00 Stented Stented Disease Active 2017-04 coronary coronary 1-15 Hayder o artery artery 00:00: n 00 Multiple Multiple Disease Active myeloma myeloma -10 Anderso 00:00: n 00 Allergies, Adverse Reactions, [...] Start Date Stop Date Quantity Comments Source History of tobacco Current smoker Al ta Jainism use History SDOH [place] Meth odist Alcohol Std Drinks History SDOH [place] Meth odist Alcohol Binge Exposure to Not sure [place] Metho dist SARS-CoV-2 (event) Cigarettes smoked 2020-08-31 2020-08-31 Gu[place] Dempsey current (pack per 00:00:00 00:00:00 day) - Reported Tobacco use and 2020-08-31 2020-08-31 Never used [place] Diop ethodist exposure 00:00:00 00:00:00 Alcohol intake 2020-08-31 2020-08-31 Lifetime [place] Man thodist 00:00:00 00:00:00 non-drinker (finding) History SDOH 2020-08-25 2020-08-25 1 [place] Meth odist Alcohol Frequency 00:00:00 00:00:00 Cigarette 2020-02-28 2020-02-28 MD Gibson pack-years 00:00:00 00:00:00 Sex [birth year] Gu[place] robertodist 00:00:00 00:00:00 Smoking Status Start Date Stop Date Source Former smoker 2020-08-31 00:00:00 2020-08-31 00:00:00 Gu[place] Dempsey Medications Ordered Filled Start Stop Current Ordering Indication Dosage Frequency Signature Comments Components Source Medication Medication Date Date Medication? Clinician (SIG) Name Name calcium Yes 2{tbl} QD Take 2 [place] carbonate-v 5-21 tablets by Ks sara itamin D3 14:26: mouth st 500 54 daily. mg(1,250mg) -400 unit tablet aspirin Yes 81mg Q24H Take 81 mg [place] (ECOTRIN) 5-21 by mouth Method i 81 MG 14:26: daily. st enteric 54 coated tablet losartan-hy Yes 1{tbl} QD Take 1 Ho ton drochloroth 5-21 tablet by Met hodi iazide 14:26: mouth st (Hyzaar) 54 every 100-25 mg morning. per tablet valACYclovi Yes 500mg QD Take 500 [place] r (VALTREX) 5-21 mg by Methodi 500 MG 14:26: mouth st tablet 54 every morning. cholecalcif Yes 1{tbl} QD Take 1 Al ta imer, 5-21 tablet by Methodi vitamin D3, 14:26: mouth st (VITAMIN D3 54 daily. ORAL) traMADoL 2020- Yes acute pain 25mg Q6H Take 0.5 Mujica (ULTRAM) 50 5-21 05-26 tablets Meth shen mg tablet 00:00: 23:59 ([address] 00 :00 total) by mouth every 6 (six) hours as needed for moderate pain for up to 5 days .acute pain. bimatoprost 2020- No Lumigan lA ta (Lumigan) 5-18 05-18 0.01 % eye Met hodi 0.01 % 09:04: 00:[address] ophthalmic 50 :00 drop to drops both eyes at night bimatoprost Yes 1[drp] Administer MD (LUMIGAN) 5-14 1 drop to Pierce so 0.01% 12:59: both eyes n ophthalmic 21 at drops bedtime. losartan 50 Yes 1{tbl} Take 1 MD mg tab 100 5-14 tablet by Terry rso mg, 12:59: mouth n hydroCHLORO 21 daily. thiazide 25 mg tab 25 mg aspirin 81 Yes 81mg Take 81 mg M D mg EC 5-14 by mouth Anderso tablet 12:59: daily. n 21 cholecalcif Yes 400U Take 400 MD imer, 5-14 Units by Anderso vitamin D3, 12:57: mouth n 400 units 25 twice tablet daily. calcium Yes 1{tbl} Take 1 MD carbonate-v 5-14 tablet by And erso itamin D3 12:57: mouth n (CALCIUM 25 twice 500 WITH D) daily. 500 mg(1,250mg) -400 unit tab atorvastati Yes 80mg Take 80 mg MD n (LIPITOR) 5-14 by mouth Terry rso 80 mg 12:57: daily. n tablet 25 lenalidomid Yes multiple 10mg Take 10 mg MD e 5-14 myeloma by mouth. Anderso (REVLIMID) 12:57: For 21 n capsule 10 25 days then mg 7 days off valACYclovi Yes Multiple 500mg Take 1 MD r (VALTREX) 5-14 myeloma tablet And erso 500 mg 00:00: (500 mg) n tablet 00 by mouth daily. calcium Yes Q24H daily. [facility] carbonate-v [...] Medical tablet 39 Center bimatoprost Yes Lumigan [facility] St (Lumigan) 1-06 0.01 % eye Luke s - 0.01 % Drop 13:59: drops 1 Med ical ophthalmic 39 drop to Center solution both eyes at night lenalidomid 2019-04 Yes 10mg QD Take 10 mg Mujica e 2-08 by mouth Methodi (Revlimid) 00:00: nightly. st 10 mg 00 capsule Revlimid 10 2019-[address] mg capsule 2-08 [facility] - 00:00: Medical 00 Sheldon LORazepam 2019-04 2020- No Multiple 1mg Take 1 M D (Ativan) 1 -16 11-20 myeloma tablet (1 Anderso mg tablet 00:00: 05:59 mg) by n 00 :00 mouth once for 1 dose 15 minutes prior to MRI atorvastati 2019-04 Yes 80mg QD Take 80 mg [place] n (LIPITOR) 0-03 by mouth Meth shen 80 MG 00:00: nightly. st tablet 00 atorvastati 2019-04 Yes 80mg QD Take 80 mg CHI n (LIPITOR) 0-03 by mouth Luke s - 80 MG 00:00: daily. Medical tablet 00 Sheldon sulfamethox 2019- No Multiple 1{tbl} Take 1 azole-trime 2-20 11-20 myeloma tablet by Anderso thoprim 00:00: 00:00 mouth 3 n (BACTRIM 00 :00 (three) DS) 800 times a mg-160 mg week per tablet Monday, Monday and Monday. oxyCODONE 2019- No Multiple 10mg Take 2 M D (ROXICODONE 05-29-20 myeloma tablets A nderso ) 5 mg 00:00: 00:00 (10 mg) by n immediate 00 :00 mouth release every 4 tablet (four) hours as needed for moderate pain or severe pain. chlorhexidi Multiple 15mL Swish and MD diaz (PAROEX) 10-19 myeloma spit 15 mL Anderso 0.12% 00:00: 00:00 twice n mouthwash 00 :00 daily. (alcohol-fr Swish and ee) spit after 30 seconds fluoride, 2019- No Multiple Apply to MD quiroz, 10-19- myeloma teeth Anderso (PREVIDENT) 00:00: 00:00 daily. n 1.1 % 00 :00 dental cream senna-docus 2019- No Multiple 1{tbl} Take 1 MD ate 10-03-20 myeloma tablet by Hayder o (SENOKOT-S) 00:00: 00:00 mouth 2 n 8.6 [...] route. atorvastati atorvastati No 1 Q1D atorvastat [facility] n 80 mg n 80 mg in 80 mg Famil y tablet Take tablet Take tablet Practic 1 tablet 1 tablet Take 1 e every day every day tablet by oral by oral every day route. route. by oral route. Calcium 600 Calcium 600 No 1capsul Q1D Cal[place] with with e(s) 600 with Family Vitamin D3 Vitamin D3 Vitamin D3 Practic 600 mg 600 mg 600 mg e (1,500 (1,500 (1,500 mg)-500 mg)-500 mg)-500 unit unit unit capsule capsule capsule Take 1 Take 1 Take 1 capsule capsule capsule every day every day every day by oral by oral by oral route. route. route. Lumigan Lumigan No [facility] e 0.01 % eye 0.01 % eye [...] Date Status Commen ts Source Name Name Pfizer SARS-CoV-2 2020-06-04 Completed MD Stewart rson Vaccination 00:00:00 Pfizer SARS-CoV-2 2020-05-07 Completed MD Stewart rson Vaccination 00:00:00 DTaP / IPV 2019-03-01 Makenna Gibson 00:00:00 Hib (PRP-OMP) 2019-03-01 Completed MD Gibson 00:00:00 Hepatitis B 2019-03-01 Completed MD Gibson 00:00:00 Pneumococcal 2019-03-01 Makenna Gibson Conjugate 13-Valent 00:00:00 influenza, influenza, 2019-01-08 Completed [facility] injectable, injectable, 00:00:00 Practice quadrivalent quadrivalent DTaP / IPV 2018-12-06 Makenna Gibson 00:00:00 Hib (PRP-OMP) 2018-12-06 Makenna Gibson 00:00:00 Hepatitis B 2018-12-06 Makenna Gibson 00:00:00 Pneumococcal 2018-12-06 Makenna Gibson Conjugate 13-Valent 00:00:00 DTaP / IPV 2018-09-04 Makenna Gibson 00:00:00 Hib (PRP-OMP) 2018-09-04 Makenna Gibson 00:00:00 Hepatitis B 2018-09-04 Completed MD Gibson 00:00:00 Pneumococcal 2018-09-04 Completed MD Gibson Conjugate 13-Valent 00:00:00 Vital Signs Vital Name Observation Time Observation Value Comments Source Height 2019-08-21 00:00:00 62 [in_i] [facility] BMI (Body Mass 2019-08-21 00:00:00 25.4 kg/m2 [facility] Family Index) Practice Body Weight 2019-08-21 00:00:00 139 [lb_av] [facility] Systolic blood 2020-08-28 12:08:22 128 mm[Hg] Laishato n Jainism pressure Diastolic blood 2020-08-28 12:08:22 45 mm[Hg] Laishat on Jainism pressure Heart rate 2020-08-28 12:08:22 54 /min [place] Rawlsist Body temperature 2020-08-28 12:08:22 36.39 Gilma [place] Jainism Respiratory rate 2020-08-28 12:08:22 18 /min Laisha gaytan Jainism Oxygen saturation in 2020-08-28 12:08:22 98 /min Guanako Dempsey Arterial blood by Pulse oximetry Body weight 2020-08-28 06:16:00 67.45 kg [place] Jainism BMI 2020-08-28 06:16:00 28.10 kg/m2 [place] Jainism Body height 2020-08-25 08:53:00 154.9 cm M[place]ica Jainism Body weight 2020-08-21 12:56:00 65.7 kg MD Pelayo son BMI 2020-08-21 12:56:00 27.52 kg/m2 MD Pelayo son Systolic blood 2020-08-21 12:55:34 140 mm[Hg] pressure Diastolic blood 2020-08-21 12:55:34 78 mm[Hg] MD Rooney derson pressure Heart rate 2020-08-21 12:55:34 71 /min Pierce son Body temperature 2020-08-21 12:55:34 36.78 Gilma MD Maria E horvathrson Respiratory rate 2020-08-21 12:55:34 18 /min MD Maria E bernardon Oxygen saturation in 2020-08-21 12:55:34 96 /min MD Gibson Arterial blood by Pulse oximetry Body height 2020-03-25 11:00:00 160 cm [facility] Body weight 2020-03-25 11:00:00 66.588 kg [facility] BMI 2020-03-25 11:00:00 26.00 kg/m2 [facility] Procedures Procedure Date / Time Performing Clinician Source Performed HC COMPLETE BLD COUNT 2020-08-28 04:31:00 Morteza Forrest on Jainism W/AUTO DIFF BASIC METABOLIC PANEL 2020-08-28 04:31:00 Morteza Forrest on Jainism ESTIMATED GFR 2020-08-28 04:31:00 oMrteza Forrest INTRAOPERATIVE MONITORING 2020-08-27 16:32:41 Fabien Ventura [place] ARTERIAL BLOOD GAS, 2020-08-27 14:44:00 Sathya Ventura Jainism CORRECTED [place] POTASSIUM, SYRINGE 2020-08-27 14:44:00 Sathya Ventura on Jainism [place] SODIUM LEVEL, SYRINGE 2020-08-27 14:44:00 Sathya Ventura Jainism [place] HEMOGLOBIN, SYRINGE 2020-08-27 14:44:00 Sathya Ventura Jainism [place] IONIZED CALCIUM, ARTERIAL 2020-08-27 14:44:00 Fabien Ventura Kalachsarita LACTIC ACID, SYRINGE 2020-08-27 14:44:00 Sathya Ventura ston Jainism [place] GLUCOSE LEVEL, SYRINGE 2020-08-27 14:44:00 Sathya Ventura Jainism [place] ACTIVATED CLOTTING TIME 2020-08-27 14:42:00 Sathya Ventura [place] ARTERIAL LINE 2020-08-27 13:27:46 Nayeli Singh odist GLUCOSE LEVEL, SYRINGE 2020-08-27 13:11:00 Sathya Ventura [place] IONIZED CALCIUM, ARTERIAL 2020-08-27 13:11:00 Fabien Ventura [place] HEMOGLOBIN, SYRINGE 2020-08-27 13:11:00 Sathya Ventura Jainism [place] SODIUM LEVEL, SYRINGE 2020-08-27 13:11:00 Sathya Ventura [place] ARTERIAL BLOOD GAS, 2020-08-27 13:11:00 Sathya Ventura Jainism CORRECTED [place] POTASSIUM, SYRINGE 2020-08-27 13:11:00 Sathya Ventura on Jainism [place] ACTIVATED CLOTTING TIME 2020-08-27 13:10:00 Sathya Ventura [place] AN ELECTIVE ENDOTRACHEAL 2020-08-27 13:05:00 Nayeli Singh AIRWAY ENDARTERECTOMY, CAROTID 2020-08-27 12:48:00 Sathya Ventura ABO AND RH CONFIRMATION 2020-08-27 09:18:00 Sathya Ventura XR CHEST 2 VW 2020-08-25 11:33:00 Sathya Ventura SPIROMETRY, DIFFUSION, LUNG 2020-08-25 11:18:00 Adilia Ventura VOLUMES Zeina VITAMIN B12 LEVEL 2020-08-25 10:00:00 Sathya Ventura URINALYSIS, AUTOMATED WITH 2020-08-25 10:00:00 Maria Fernanda Ventura MICROSCOPY Zeina LIPID PANEL 2020-08-25 10:00:00 Sathya Ventura IRON LEVEL 2020-08-25 10:00:00 Sathya Ventura FOLATE LEVEL 2020-08-25 10:00:00 Sathya Ventura FERRITIN LEVEL 2020-08-25 10:00:00 Sathya Ventura ESTIMATED GFR 2020-08-25 10:00:00 Sathya Ventura PREPARE RBC 2020-08-25 10:00:00 Sathya Ventura HEMOGLOBIN A1C 2020-08-25 10:00:00 Sathya Ventura PARTIAL THROMBOPLASTIN TIME 2020-08-25 10:00:00 Adilia Vetnura (PTT) Zeina PROTHROMBIN TIME WITH INR 2020-08-25 10:00:00 Fabien Ventura COMPREHENSIVE METABOLIC 2020-08-25 10:00:00 Sathya Ventura PANEL Zeina HC COMPLETE BLD COUNT 2020-08-25 10:00:00 Sathya Ventura W/AUTO DIFF Zeina ECG 12-LEAD 2020-08-25 09:55:13 Sathya Ventura COVID-19 QUALITATIVE PCR 2020-08-25 09:41:00 Sathya Ventura COMPLETE BLOOD COUNT W/ 2020-08-19 14:14:00 Ariadne Ashton MD DIFFERENTIAL COMPREHENSIVE METABOLIC 2020-08-19 14:14:00 Ariadne Ashton MD PANEL IMMUNOGLOBULIN A SERUM 2020-08-19 14:14:00 Ariadne Ashton MD PROTEIN ELECTROPHORESIS, 2020-08-19 14:14:00 Ariadne Ashton SERUM FREE KAPPA LIGHT CHAIN 2020-08-19 14:14:00 Ariadne Ashton MD BETA 2 MICROGLOBULIN 2020-08-19 14:14:00 Ariadne Ashton MD derson URIC ACID 2020-08-19 14:14:00 Ariadne Ashton MD MAGNESIUM LEVEL 2020-08-19 14:14:00 Ariadne Ashton MD Andyung lizama LACTATE DEHYDROGENASE 2020-08-19 14:14:00 Ariadne Ashton MD nderson PHOSPHORUS LEVEL 2020-08-19 14:14:00 Ariadne Ashton MD Hayder on Results CBC 2020-08-19 14:14:00 Ariadne Ashton MD Andyung lizama MANUAL DIFFERENTIAL 2020-08-19 14:14:00 Ariadne Ashton MD And erson GLUCOSE LEVEL 2020-08-19 14:14:00 Ariadne Ashton MD Andyung lizama BLOOD UREA NITROGEN 2020-08-19 14:14:00 Ariadne Ashton MD And erson ELECTROLYTE PANEL 2020-08-19 14:14:00 Ariadne Ashton MD Pierce son SERUM CREATININE 2020-08-19 14:14:00 Ariadne Ashton MD Hayder on .GLOMERULAR FILTRATION RATE 2020-08-19 14:14:00 Ariadne Ashton MD CALCIUM LEVEL TOTAL 2020-08-19 14:14:00 Ariadne Ashton MD And erson ALBUMIN LEVEL 2020-08-19 14:14:00 Ariadne Ashton MD ALKALINE PHOSPHATASE 2020-08-19 14:14:00 Ariadne Ashton MD ALANINE AMINOTRANSFERASE 2020-08-19 14:14:00 Ariadne Ashton ASPARTATE AMINOTRANSFERASE 2020-08-19 14:14:00 Ariadne Ashton MD TOTAL PROTEIN 2020-08-19 14:14:00 Ariadne Ashton MD FRACTIONATED BILIRUBIN 2020-08-19 14:14:00 Ariadne Ashton MD FREE KAPPA/FREE LAMBDA 2020-08-19 14:14:00 Ariadne Ashton MD RATIO MRI WHOLE BODY - BONE 2020-08-19 13:16:12 Fouzia Das MARROW PROTEIN ELECTROPHORESIS 2020-08-19 04:30:00 Ariadne Ashton MD URINE URINE TOTAL PROTEIN 2020-08-19 04:30:00 Ariadne Ashton MD And erson .TOTAL VOLUME 2020-08-19 04:30:00 Ariadne Ashton MD PV TRANSCRANIAL DOPPLER 2020-07-28 17:05:00 Sathya Ventura INTRACRANIAL ARTERIES Zeina COMPLETE US CAROTID DUPLEX BILATERAL 2020-07-28 16:53:00 Adilia Ventura [facility] [place] Jainism [place] PROTEIN ELECTROPHORESIS, 2020-02-26 16:22:00 Con Singh MD SERUM IMMUNOGLOBULIN G SERUM 2020-02-26 16:22:00 Con Singh MD FREE KAPPA LIGHT CHAIN 2020-02-26 16:22:00 Con Singh MDson BETA 2 MICROGLOBULIN 2020-02-26 16:22:00 Con Singh MD Terry rson COMPLETE BLOOD COUNT W/ 2020-02-26 16:22:00 Con Singh MD nderson DIFFERENTIAL TOTAL PROTEIN 2020-02-26 16:22:00 Con Singh MD ALBUMIN LEVEL 2020-02-26 16:22:00 Con Singh MD ELECTROLYTE PANEL 2020-02-26 16:22:00 Con Singh MD MAGNESIUM LEVEL 2020-02-26 16:22:00 Con Singh MD PHOSPHORUS LEVEL 2020-02-26 16:22:00 Con Singh MD CALCIUM LEVEL TOTAL 2020-02-26 16:22:00 Con Singh MD [facility] GLUCOSE, RANDOM 2020-02-26 16:22:00 Con Singh MD BLOOD UREA NITROGEN 2020-02-26 16:22:00 Con Singh MD [facility] SERUM CREATININE 2020-02-26 16:22:00 Con Singh MD URIC ACID 2020-02-26 16:22:00 Con Singh MD ALANINE AMINOTRANSFERASE 2020-02-26 16:22:00 Con Singh MD ASPARTATE AMINOTRANSFERASE 2020-02-26 16:22:00 Con Singh ALKALINE PHOSPHATASE 2020-02-26 16:22:00 Con Singh MD Terry rson FRACTIONATED BILIRUBIN 2020-02-26 16:22:00 Con Singh MD derson LACTATE DEHYDROGENASE 2020-02-26 16:22:00 Con Singh MD And erson Results CBC 2020-02-26 16:22:00 Con Singh MD MANUAL DIFFERENTIAL 2020-02-26 16:22:00 Con Singh MD [facility] SERUM CREATININE 2020-02-26 16:22:00 Con Singh MD .GLOMERULAR FILTRATION RATE 2020-02-26 16:22:00 Con Singh MD FREE KAPPA/FREE LAMBDA 2020-02-26 16:22:00 Con Singh MD derson RATIO IMMUNOFIXATION 2020-02-26 16:22:00 Con Singh MD ELECTROPHORESIS .DR. CHEUNG PROT ELEC PATH 2020-02-26 16:22:00 Con Singh MD REVIEW .DR. CHEUNG EDMAR PATH REVIEW 2020-02-26 16:22:00 Con Singh PROTEIN ELECTROPHORESIS 2020-02-26 11:00:00 Con Singh MDrsthanh URINE URINE TOTAL PROTEIN 2020-02-26 11:00:00 Con Singh MD [facility] .TOTAL VOLUME 2020-02-26 11:00:00 Con Singh MD Plan of Care Planned Activity Planned Date Details Comments Source Future Scheduled Test 2020-11-08 INFLUENZA VACCINE [place] [facility] 00:00:00 [code = INFLUENZA VACCINE] Future Scheduled Test 2020-04-10 DEPRESSION SCREENING CHI [...] 00:00:00 (1 of 1 - Medical Center [id number] PCV13) [code = PNEUMOCOCCAL 65+ YRS (1 of 1 - [id number]_Hceutoa PCV13)] Future Scheduled Test 1998 BREAST CANCER [place] Jainism 00:00:00 SCREENING [code = BREAST CANCER SCREENING] Future Scheduled Test 1998 COLONOSCOPY SCREENING [place] Jainism 00:00:00 [code = COLONOSCOPY SCREENING] Future Scheduled Test 1998 SHINGLES VACCINES H [facility] Jainism 00:00:00 (#1) [code = SHINGLES VACCINES (#1)] Future Scheduled Test 1966 Hepatitis C screening [place] Jainism 00:00:00 (procedure) [code = 140966872] Future Scheduled Test 1954 65+ PNEUMOCOCCAL Ho [facility] Jainism 00:00:00 VACCINE (1 of 2 - PPSV23) [code = 65+ PNEUMOCOCCAL VACCINE (1 of 2 - PPSV23)] Future Scheduled Test 1950 Scre[facility] - 00:[facility]:00 malignant neoplasm of [facility] Center breast (procedure) [code = 511711267] Future Scheduled Test 1950 Scre[facility] - 00:00:00 malignant neoplasm of Medica [facility] Center colon (procedure) [code = 533193448] Instructions [facility] Practice Encounters Start End Encounter Admission Attending Care Care Encounter Source Date/Time Date/Time Type Type Clinicians Facility Department ID 2019-10-09 Outpatient SYSTEM, CATALINO BAE [id number] 11:04:10 PROVIDER Hayder lizama 2020-08-27 2020-08-28 Inpatient [facility] [id number] [place] 00:00:00 00:00:00 , SATHYA 398 Metho di 2020-08-25 2020-08-25 Outpatient [facility] [id number] [place] 00:00:00 00:00:00 , SATHYA 455 Metho di 2020-08-25 2020-08-25 [id number] [place] 00:00:00 00:00:00 , SATHYA 458 Metho di 2020-08-25 2020-08-25 Outpatient [facility] [id number] [place] 00:00:00 00:00:00 , SATHYA 108 Metho di 2020-07-28 2020-07-29 [id number] [place] 00:00:00 00:00:00 , SATHYA 001 Metho di 2020-07-28 2020-07-29 Outpatient [facility] [id number] [place] 00:00:00 00:00:00 , SATHYA 002 Metho di 2020-07-28 2020-07-28 Outpatient [facility] [id number] [place] 00:00:00 00:00:00 , SATHYA 654 Metho di 2019-08-21 2019-08-21 Lynnette VFP [place] - [id number] V illage 00:00:00 00:00:00 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 Results Test Description Test Test Results Result Source Time Comments Comments Intraoperative 2020-08Daily Vega Ma, MD - [place] monitoring 20 08/27/2020 5:14 PM Metho dist 17:14:00 CDT INTRAOPERATIVE NEURO MONITORING Patient Name: Lindsey Peter Date of : 1950 Gender: femaleSurgical Procedure: Right Carotid EndarterectomyOR: WOR No Change in EEGRoom #: 9Tech #1: LDStart Time: 13:01End Time: 15:40Total Time 2.7Date of service: 1Physician IOM Time: 2.7 hoursProcedure(s) performed during IOM: 31752QOF76: I65.21 Stimulation ParametersFree running EEG recorded with bipolar derivation, using a modified International 10/20 placements: Fp1-C3, C3-O1, Fp2-C4, C4-O2, T3-O1, T4-O2, Fp1-T3, Fp2-T4. Technical SummaryIntraoperative neurophysiological monitoring was performed using free-running EEG. A real time connection with the examining neurologist was established and maintained throughout the operative procedure by the monitoring technologist. Pre-operative EEG was recorded in the holding area and revealed no asymmetry. Free running EEG demonstrated symmetrical high amplitude delta with superimposed faster frequencies most likely secondary to inhaled anesthetic agents. At clamping of the right carotid artery the EEG was judged to be essentially unchanged and the surgeon was informed. ConclusionFree running EEG remained symmetrical throughout the remaining of the procedure. No focal changes occurred.. Prepare RBC 2020-08-27 15:58:00 Test Item Value Reference Range Interpretation Comme nts Product name (test code = 25) Red Blood Cells -1, Leukored Unit number (test code = 6526073) [id number] Product code (test code = 3092) [id number] Dispense status (test code = 24) Returned to not transfused Blood expiration date (test code = 302) [id number] Blood type code (test code = 308) 6200 Blood type (test code = 1314) A POSITIVE Compatibility (test code = 6400) Compatible [place] MethodistArterial blood gas, [id number] 14:52:24 Test Item Value Reference Range Interpretation Comments pH, arterial (test code 7.44 7.35-7.45 = 2744-1) pCO2, arterial (test 34 See_Comment L [Autom ated message] code = 2019-8) The system [employer] generated this result transmitted ref erence range: 35 - 45 mmHg. The reference r josette was not used to interpret this result as normal/abnor mal. pO2, arterial (test code 326 See_Comment H [A utomated message] = 5473-7) The system [employer] generated this result transmitted ref erence range: 80 - 90 mmHg. The reference r josette was not used to interpret this result as normal/abnor mal. Temperature, Celsius 37.0 Degrees C (test code = 8310-5) O2 saturation, arterial 99 % 95-100 (test code = 2708-6) pH, arterial corrected 7.44 (test code = 73440-1) pCO2, arterial corrected 34 mmHg (test code = 20664-7) pO2, arterial corrected 326 mmHg (test code = 29608-1) Base excess, arterial -1 See_Comment [Auto mated message] (test code = 1925-7) The sys tem which generated this result transmitted ref erence range: -2 - 2 m Eq/L. The reference r josette was not used to interpret this result as normal/abnor mal. Lab Interpretation (test Abnormal code = 12915-4) [place] MethodistGlucose level, [id number] 14:52:24 Test Item Value Reference Range Interpretation Comments Glucose, syringe (test code = 90 mg/dL 65-99 2345-7) [place] MethodistHemoglobin, [id number] 14:52:24 Test Item Value Reference Range Interpretation Comments Hemoglobin, syringe (test code = 9.4 g/dL 12.0-16.0 L 718-7) Lab Interpretation (test code = Abnormal 17673-7) Mujica MethodistIonized calcium, [id number] 14:52:24 Test Item Value Reference Range Interpretation Comments Ionized calcium, arterial (test 0.86 mmol/L 1.11-1.32 L code = 37901-0) Lab Interpretation (test code = Abnormal 54387-6) Mujica MethodistLactic acid, [id number] 14:52:24 Test Item Value Reference Range Interpretation Comments Lactic acid, syringe (test code = 0.7 mmol/L 0.5-2.2 21216-6) [place] MethodistPotassium, [id number] 14:52:24 Test Item Value Reference Range Interpretation Comments Potassium, syringe (test 3.2 See_Comment L [A utomated message] code = 2007) The system Dextr generated this result transmitted ref erence range: 3.5 - 5. 0 mEq/L. The refe rence range was not u sed to interpret this result as normal/abnor mal. Lab Interpretation (test Abnormal code = 22810-4) [place] RawlsistSodium level, [id number] 14:52:24 Test Item Value Reference Range Interpretation Comments Sodium, syringe (test 136 See_Comment [Auto mated message] The code = 2947-0) system which generated this result tra nsmitted reference range : 135 - 148 mEq/L. The refe rence range was not used to interpret this result as normal/abnormal . [place] MethodistArterial [id number] 13:27:46Nayeli Singh DO 08/27/2020 1:30 PMArterial line Patient Location: ORStart Time: 08/27/2020 12:54PMEnd Time: 08/27/2020 1:01 PM Performed by: anesthesia residentAnesthesiologist: Jackson Britt, Yolandat/ACCIDENT REPORT CLERK/AA: Nayeli Singh DOAuthorized by: Jackson Britt MD Pre-procedure: patient identified, IV checked, site and side verified, risks and benefits discussed, procedure verified, surgical consent complete, patient position confirmed, monitors and equipment checked, pre-op evaluation complete and timeout performed prior to procedure MSBT: antiseptic used, all elements of maximal sterile barrier technique followed, hand hygiene performed, cap/gown used by other personnel and solutions labeled Indications: Indications: hemodynamic monitoring Anesthesia: Anesthesia: Local infiltrationProcedure Details: Arterial Line placement: Placed pre-induction Line placement site: RadialLine placement side: Right Arterial line gauge: 20 G Ultrasound guidance used: Yes Post-procedure: Post-procedure: Sterile dressing applied and line sutured Patient tolerance: Patient tolerated the procedure well with no immediate complicationsAnton [place]ico WvoixesagEyussd1004-35-53 13:05:00Nayeli Singh DO 08/27/2020 1:30 PMAirway Date/Time: 08/27/2020 1:05 PM Location: OR Performed by: anesthesia residentAnesthesiologist: Jackson Britt, Yolandat/ACCIDENT REPORT CLERK/AA: Aquiles, Nayeli, DOAuthorized by: Jackson Britt MD Urgency: ElectiveDifficult Airway: No Preoxygenated with 100% O2: Yes C-spine Precautions Maintained Throughout: Yes Mask Ventilation: Easy maskFinal Airway Type: Endotracheal airwayFinal Endotracheal Airway: ETTCuffed: Yes Technique Used: Direct laryngoscopyDevices/Methods Used in Placement: Intubating styletInsertion Site: OralBlade Type: MacintoshLaryngoscope Blade/Videolaryngoscope Blade Size: 3ETT Size (mm): 7.0Cuff at minimum occlusi on pressure: Yes Measured from: LipsETT to Lips (cm): 21Placement Verified by: CO2 detection, direct visualization and equal breath sounds Laryngoscopic view: Grade IIa - partial view of glottisRapid Sequence Induction (RSI): No Modified RSI: No Number of Attempts at Approach: [facility] Methodist[facility] 12 lead 2020-08-25 15:35:56 Test Item Value Reference Range Interpretation Comments Ventricular rate (test 45 code = 253) Atrial rate (test code = 45 255) [place] interval (test code = 180 266) QRSD interval (test code 96 = 260) QT interval (test code = 536 264) QTC interval (test code 463 = 265) P axis 1 (test code = 59 267) QRS axis 1 (test code = 68 268) T wave axis (test code = 84 270) EKG impression (test Marked sinus code = 273) bradycardia-Nonspecif ic T wave abnormality-Abnormal ECG-No previous ECGs available-Electronica lly Signed By Erna GARCIA, [facility] ([id number]) on 08/25/2020 3:35:54 PM [place] MethodistXR Chest 2 [id number] 11:57:39Hm Interface, Radiology Results - 08/25/2020 12:00 PM CDT EXAMINATION: XR CHEST 2 VWCLINICAL HISTORY: I65.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 Cardiomediastinal silhouette is within normal limits.No effusion orpneumothorax noted.Visualized osseous structures are intact with healed left rib fracture deformities.[id number] MethodistUrine Prot Electrophoresis Path [id number] 04:55:29 Test Item Value Reference Range Interpretation Comments U ProE Path The follow-up urine Int (test protein code = electrophoretic TRENTON SAAVEDRA MD 7803) pattern does not show - 1018 4Dictated by: definitive evidence JOANA SAAVEDRA MD - of a Bence-Liang 43021Xsxlbn ed protein peak. If a Date/Time : 08.20.2020 Bence-Liang 23:55 PM CDT proteinuria is Transcribed D ate/Time: suspected clinically, 2020 23:55 PM however, urine EDMAR CDTElectr onically studies are Signed By: BEVE RLY suggested. MD KERI - 1018 4 on 08.20.2020 23:5 5 PM MD GibsonProtein Electrophoresis [id number] 04:55:28 Test Item Value Reference Range Interpretation Comments U Albumin % (test code = 7676) 42.4 % 30.0-50.0 U Globulin% (test code = 8523) 57.6 % 50.0-70.0 MD GibsonPzmdmltbRlK7186-15-55 16:08:14 Test Item Value Reference Range Interpretation Comments IgA (test code = 5992) 211 mg/dL 85-499 MD GibsonProtein Electrophoresis Path [id number] 01:39:31 Test Item Value Reference Range Interpretation Comments SPE Path The follow-up serum Interp (test protein code = 7285) electrophoretic XIAO PING pattern shows a very MD MASSIEL, PhD - small M-protein peak. 77925I ictated by: It shows a decrease CONNOR RANKIN MD, PhD - when compared to the 42958Rt ctated previous M-protein Date/Time : 08.19.2020 value about 6 months 20:39 P M CDT ago. Transcribed Michael e/Time: 08.19.2020 20:3 9 PM CDTElectronical ly Signed By: JOSETTE RANKIN MD, PhD - 1 0878 on 08.19.2020 2 0:39 PM MD [place] Protein Jfqxynklmalkwvx4799-11-78 01:39:30 Test Item Value Reference Range Interpretation Comments TOT PROTEIN (test code = 7.2 See_Comment [A utomated message] 8545) The system Dextr generated this result transmitted ref erence range: 6.4 - 8. 3 gm/dL. The refe rence range was not u sed to interpret this result as normal/abnor mal. Albumin (test code = 3.9 See_Comment [Autom ated message] 1751-7) The system Dextr generated this result transmitted ref erence range: 3.6 - 5. 4 gm/dL. The refe rence range was not u sed to interpret this result as normal/abnor mal. Alpha 1 Globulin (test 0.4 See_Comment [Aut omated message] code = 2865-4) The system [employer] generated this result transmitted ref erence range: 0.2 - 0. 4 gm/dL. The refe rence range was not u sed to interpret this result as normal/abnor mal. Alpha 2 Globulin (test 1.1 See_Comment H [Aut omated message] code = 2868-8) The system [employer] generated this result transmitted ref erence range: 0.5 - 1. 0 gm/dL. The refe rence range was not u sed to interpret this result as normal/abnor mal. Beta Globulin (test code 0.9 See_Comment [A utomated message] = 2871-2) The system De[employer] generated this result transmitted ref erence range: 0.5 - 1. 1 gm/dL. The refe rence range was not u sed to interpret this result as normal/abnor mal. Gamma Globulin (test 1.0 See_Comment [Autom ated message] code = 2874-6) The system [employer] generated this result transmitted ref erence range: 0.7 - 1. 6 gm/dL. The refe rence range was not u sed to interpret this result as normal/abnor mal. Paraprotein1 (test code 0.2 See_Comment H [Au tomated message] = 48423-8) The system De[employer] generated this result transmitted ref erence range: 0.0 - 0. 0 gm/dL. The refe rence range was not u sed to interpret this result as normal/abnor mal. Lab Interpretation (test Abnormal code = 61170-7) MD Saha [place]/Free Lambda Iheci7724-55-04 18:19:22 Test Item Value Reference Range Interpretation Comments FKap/FLam RT (test code = 5566) 1.17 0.26-1.65 MD Saha Lambda Light [id number] 18:19:21 Test Item Value Reference Range Interpretation Comments Free Lambda (test code = 5630) 53.23 mg/L 5.71-26.30 H Lab Interpretation (test code = Abnormal 53939-5) MD Saha [place] Light [id number] 18:19:20 Test Item Value Reference Range Interpretation Comments Free [place] (test code = 5629) 62.02 mg/L 3.30-19.40 H Lab Interpretation (test code = Abnormal 41334-9) MD GibsonBeta 2 Jricfoqyfwble2269-17-26 18:19:19 Test Item Value Reference Range Interpretation Comments Beta2 Microglob (test code = 5090) 3.2 mg/L 0.8-2.3 H Lab Interpretation (test code = Abnormal 42191-1) MD GibsonBbqawqeuCwP4151-95-59 18:19:18 Test Item Value Reference Range Interpretation Comments IgM (test code = 6023) 13 mg/dL 35-242 L Lab Interpretation (test code = Abnormal 32324-5) MD GibsonIebbwfvsBmY7429-93-30 18:19:17 Test Item Value Reference Range Interpretation Comments IgG (test code = 6001) 900 mg/dL 610-1616 MD GibsonKhsquspu46ih Urine Total Kotpfuw5530-95-54 16:10:30 Test Item Value Reference Range Interpretation Comments UTP (test code = 4 mg/dL Caution is advised when 7921) interpreting va lues greater than 555 mg/dL. Results requiring exten ded dilution beyond the manu facturer's recommendedlimi t may not dilute linearly due to potential matri x effect.Correlat ion with clinical contex t is recommended. UTP 24 (test code 82 See_Comment [Automate d message] The = 7990) system which ge nerated this result transmit jenny reference range: <=149 mg /24hr. The reference range was not used to interpret th is result as normal/abnormal . MD GibsonTotal Rmsmbe4377-80-21 15:15:11 Test Item Value Reference Range Interpretation Comments Total Volume (test code 2049 See_Comment H Prashanth ection date/time = 7650) has been modifi ed to: 23:30:00. Prev ious collection date/time: 03/30 09:10:00.Correc jenny from 2049 mL/24 h [HI] on 10:15:11 CDT by Catalina Calderon . [Automated mess age] The system whic h generated this result transmit jenny reference range : 1,200 - 1,500 m L/24 h. The referenc e range was not u sed to interpret th is result as normal/abnormal . Hrs Collected (test 24 Collecti on date/time code = 5928) has been modifi ed to: 23:30:00. Prev ious collection date/time: 03/30 09:10:00.Correc jenny from 24 [NA] on 08/19/20 10:15: 11 CDT by Catalina Calderon. Start Date (test code = 08/17/2020 Prashanth ection date/time 7382) has been modifi ed to: 23:30:00. Prev ious collection date/time: 03/30 09:10:00.Correc jenny from 08/17/20 0:00:00 CDT [NA ] on 08/19/20 10:15: 11 CDT by Catalina Calderon. End Date (test code = 08/18/2020 Collec tion date/time 2610) has been modifi ed to: 23:30:00. Prev ious collection date/time: 03/30 09:10:00.Correc jenny from 08/18/20 0:00:00 CDT [NA ] on 08/19/20 10:15: 11 CDT by Catalina Calderon. Lab Interpretation Abnormal (test code = 16263-8) MD GibsonFractionated Fuqjncqrn4919-38-67 15:11:35 Test Item Value Reference Range Interpretation Comments [...] 28 g/L. [Automate d message] The system Dext[employer] generated this result transmitted ref erence range: [...] normal/abnormal . Bili Indirect (test See Note 0.0-0.9 Unable t o calculate code = 5095) Indirect Biliru bin result due to some par ameters are outside rep ortable range MD GibsonUric [id number] 15:11:34 Test Item Value Reference Range Interpretation Comments Uric Acid (test code = 7955) 4.3 mg/dL 2.4-5.7 MD GibsonTotal Tedardg9209-18-15 15:11:32 Test Item Value Reference Range Interpretation Comments Total Protein (test code = 7649) 7.2 g/dL 6.4-8.3 MD GibsonGlomerular Filtration [id number] 15:11:31 Test Item Value Reference Range Interpretation Comments eGFR-AA (test code = 49 See_Comment L Normal eGFR: >= 60 8062) mL/min/1.73 m2N [...] as normal/abnormal . eGFR-YASMIN (test code = 42 See_Comment L Normal eGFR: >= 60 8063) [...] . Lab Interpretation Abnormal (test code = 25934-2) MD GibsonPhosphorus Gyypi6693-20-23 15:11:30 Test Item Value Reference Range Interpretation Comments Phosphorus (test code = 6817) 3.6 mg/dL 2.5-4.5 MD GibsonMagnesium Lqeyv1500-20-98 15:11:29 Test Item Value Reference Range Interpretation Comments Magnesium (test code = 6359) 1.9 mg/dL 1.6-2.6 MD GibsonCalcium [id number] 15:11:28 Test Item Value Reference Range Interpretation Comments Calcium Lvl (test code = 5258) 10.1 mg/dL 8.4-10.2 MD GibsonEdvelykdDHB0784-02-88 15:11:26 Test Item Value Reference Range Interpretation Comments LDH (test code = 142 U/L 135-214 Results gre ater than 1651 6111) U/L may not be reliable due to matrix effec t with extended diluti on as it exceeds the man ufacturer s recommended l imit. Caution should be exercised when interpreti ng such values and done in conjunction wit h clinical context. MD GibsonPuakzsxiZOC7369-54-91 15:11:25 Test Item Value Reference Range Interpretation Comments ALT (test code = 23 U/L See_Comment [Automated message] The 1948) system which ge nerated this result transmit jenny reference range : <=33. The reference range was not used to interpr et this result as lani l/abnormal. MD GibsonAlkaline Ldmtjspzkma6108-30-16 15:11:24 Test Item Value Reference Range Interpretation Comments Alk Phos (test code = 4768) 81 U/L 35-104 MD GibsonFhokzqkaJSH5571-62-12 15:11:23 Test Item Value Reference Range Interpretation Comments BUN (test code = 5055) 31 mg/dL 6-23 H Lab Interpretation (test code = Abnormal 49869-1) MD GibsonAlbumin [id number] 15:11:22 Test Item Value Reference Range Interpretation Comments Albumin Lvl (test code 4.3 See_Comment [Aut omated message] The = 3221) system which ge nerated this result tra nsmitted reference range : 3.5 - 5.2 gm/dL. The refe rence range was not used to interpret this result as normal/abnormal . MD GibsonGlucose [id number] 15:11:21 Test Item Value Reference Range Interpretation Comments Glucose Level (test code 114 mg/dL 70-99 H Eff ective 11/04/15, = 5699) the glucose reference inter vals have been updat ed based on [place] [employer] Diabetes Associ ation guidelines (Standards of Medical Care in Diabetes 2016. Diabetes Care 2 016; 39: S13-S22).Fa sting blood glucose:Normal: 70 99 mg/dLImpaire d fasting glucose (increased risk for diabetes or pre-diabetes): 100 125 mg/dLDiabet es mellitus: >/=1 26 mg/dL Random bl ood glucose:Normal: 70 199 mg/dLNote: Random glucose >100 mg/dL is associ ated with increased risk for diabetes Lab Interpretation (test Abnormal code = 09567-2) MD GibsonAspartate Zgkekyisbklynuot5306-33-21 15:11:20 Test Item Value Reference Range Interpretation Comments AST (test code = 20 U/L See_Comment [Automated message] The 8821) system which ge nerated this result transmit jenny reference range : <=32. The reference range was not used to interpr et this result as lani l/abnormal. MD GibsonElectrolyte Ydikw7611-14-08 15:11:19 Test Item Value Reference Range Interpretation Comments Sodium Lvl (test code = 134 See_Comment L [Au tomated message] 0809) The system De[employer] generated this result transmitted ref erence range: 136 - 14 5 mEq/L. The refe rence range was not u sed to interpret this result as normal/abnor mal. Potassium Lvl (test code 3.4 See_Comment L [A utomated message] = 6301) The system Dextr generated this result transmitted ref erence range: 3.5 - 5. 1 mEq/L. The refe rence range was not u sed to interpret this result as normal/abnor mal. Chloride (test code = 93 See_Comment L [Auto mated message] 0851) The system Dextr generated this result transmitted ref erence range: 98 - 107 mEq/L. The refe rence range was not u sed to interpret this result as normal/abnor mal. CO2 (test code = 5227) 32 See_Comment H [Aut omated message] The system Dextr generated this result transmitted ref erence range: 22 - 29 mEq/L. The reference r josette was not used to interpret this result as normal/abnor mal. Anion Gap (test code = 9 See_Comment [Aut omated message] 6978) The system Dextr generated this result transmitted ref erence range: 4 - 14 m Eq/L. The reference r josette was not used to interpret this result as normal/abnor mal. Lab Interpretation (test Abnormal code = 56385-0) MD Gibson.Serum Krrjsvdthk9176-16-14 15:11:18 Test Item Value Reference Range Interpretation Comments Creatinine (test code = 5399) 1.27 mg/dL 0.51-0.95 H Lab Interpretation (test code = Abnormal 94628-7) MD GibsonMRI Whole Body - Bone Nxqecd5149-72-12 15:02:13Right pelvis expansile process with the nonrestricted diffusion anterior right ilium consistent with treated plasmacytoma. No discrete manifestation of acute or active myelomatous involvement. Interface, Radiology Results In - 08/19/2020 10:04 AM CDT FULL RESULT:Examination: MRI WHOLE BODY - BONE MARROW, 08/19/2020 8:16 AM.Clinical History:Multiple myeloma diagnosed in 2018 following clinical presentation of right iliac mass consistent with biopsy-proven plasmacytoma.Indication: Myeloma RestagingComparison: CT pelvis assessment 03/08/2018. Whole-body MRI assessment 03/01/2019.Technique: Whole-body magnetic resonance imaging was performed without intravenous administration of contrast.Findings:Pattern of bone disease: Focal lesion.Number of focal lesions: 1Examples of focal bone lesions: Expansile the chronic appearance of the anteriorright ilium redemonstrated. Nonrestricted diffusion with ADC measurement of 2.8 is consistent with treated myelomatous lesion. (Image 120 series 27 and series 28).Soft tissue masses associated with bone lesions: AbsentInfiltration of the long bones: AbsentVertebral fractures: NoneOther fractures: NonePosterior iliac crests: No potential for sampling error: posterior iliac marrow similar to marrow elsewhere.Extramedullary disease: AbsentOther pertinent positive and negative findings:No additional find ings relative to oncologic diagnosis. Mild persistent disc space desiccation L4- 5 and L5-S1 levels (image 12 series 49).. No spinal canal compromiseIMPRESSION:Right pelvis expansile process with the nonrestricted diffusion anterior right ilium consistent with treated plasmacytoma.No discrete manifestation of acute or active myelomatous involvement.MD GibsonDifferential 2020-08-19 14:59:32 Test Item Value Reference Range Interpretation Comments Neutrophil % (test code = 48.4 % 42.0-66.0 41145-7) Lymphocyte % (test code = 35.4 % 24.0-44.0 737-7) Monocyte % (test code = 12.7 % 2.0-7.0 H 744-3) Eosinophil % (test code = 2.3 % 1.0-4.0 713-8) Basophil % (test code = 0.7 % 0.0-1.0 707-0) IGRE % (test code = 0.5 % 0.0-0.4 H IGRE % c ount 51056-2) includes Metamyelocytes, Myelocytes, and Promyelocytes. Neutrophil Abs (test code 2.93 K/uL 1.70-7.30 = 753-4) Lymphocyte Abs (test code 2.14 K/uL 1.00-4.80 = 732-8) Monocyte Abs (test code = 0.77 K/uL 0.08-0.70 H 743-5) Eosinophil Abs (test code 0.14 K/uL 0.04-0.40 = 712-0) Basophil Abs (test code = 0.04 K/uL 0.00-0.10 705-4) IG Abs (test code = 0.03 K/uL 0.00-0.04 58313-7) Lab Interpretation (test Abnormal code = 87005-8) MD Gibson.[id number] 14:59:30 Test Item Value Reference Range Interpretation Comments WBC (test code = 6.1 K/uL 4.0-11.0 6690-2) RBC (test code = 789-8) 3.66 See_Comment L [Au tomated message] The system Dextr generated this result transmitted ref erence range: 4.00 - 5 .50 M/uL. The refer ence range was not u sed to interpret this result as normal/abnor mal. Hgb (test code = 718-7) 12.4 See_Comment [Au tomated message] The system Dextr generated this result transmitted ref erence range: 12.0 - 1 6.0 gm/dL. The refe rence range was not u sed to interpret this result as normal/abnor mal. Hct (test code = 35.8 % 37.0-47.0 L 4544-3) MPV (test code = 787-2) 13.1 fL 4.0-10.4 H MCH (test code = 785-6) 33.9 pg 27.0-31.0 H MCHC (test code = 34.6 See_Comment [Automate d message] 786-4) The system Dext[employer] generated this result transmitted ref erence range: 31.0 - 3 6.0 gm/dL. The refe rence range was not u sed to interpret this result as normal/abnor mal. RDW-SD (test code = 63.1 fL 35.1-46.3 H 66634-9) RDW-CV (test code = 17.4 % 12.0-15.5 H 788-0) Platelet count (test 169 K/uL 140-440 code = 777-3) INRBC (test [...] cell differential. [Automated mess age] The system De[employer] generated this result transmitted ref erence range: <=0.0. T he reference range was not used to int erpret this result as normal/abnormal . Lab Interpretation Abnormal (test code = 29490-6) MD GibsonProtein Electrophoresis Path [id number] 17:45:41SPE Path InterpThe follow-up serum protein electrophoretic [...] this time. Comment: MARIE CHEUNG MD, PhD [id number] by: MARIE CHEUNG MD, PhD [id number] Date/Time: 03.03.2020 11:45 AM CORE PLACER Transcribed Date/Time: 03.03.2020 11:45 AM CSTElectronically Signed By: [place] [id number] on 03.03.2020 11:45 AM BANNER AndersonIFE Path [id number] 17:45:40IFE Path IntThe follow-up serum protein immunofixation electrophoretic patterns obtained with the use of antisera against IgG, IgA, IgM, bound [place] and bound Lambda light chain proteins currently suggest the presence of an indistinct IgG kappa band in the gamma region but which has a much more anodicmigration compared to the patient's original M-protein.The significance of such a finding is uncertain at this time. Clinical correlation and close follow-up studies are recommended. Comment: MARIE CHEUNG [place], PhD [id number] by: MARIE CHEUNG MD, PhD [id number] Date/Time: 03.03.2020 11:45 AM CORE PLACER Transcribed Date/Time: 03.03.2020 11:45 AM CSTElectronically Signed By: [place] [id number] on 03.03.2020 11:45 AM BANNER YhptiocoFWS5979-13-30 17:45:39 Test Item Value Reference Range Interpretation Comments EDMAR (test code = 5948) See Comment MD GibsonGlucose, Jxnvzs8647-47-10 17:05:51 Test Item Value Reference Range Interpretation Comments Glucose Random (test 112 mg/dL 70-199 Effecti ve 11/04/15, the code = 9360) glucose referen ce intervals have been updated based o n [place] [employer] inocencio delines (Standards of M edical Care in Diabete s 2016. Diabetes Care 2 016; 39: S13-S22).Fastin g blood glucose:Normal: 70 99 mg/dLImpaire d fasting glucose (increa sed risk for diabetes or pre-diabetes): 100 125 mg/dLDiabet es mellitus: >/=1 26 mg/dL Random blood glucose:Normal: 70 199 mg/dLNote: Random glucose >100 mg /dL is associated with increased risk for diabetes MD Gibson
[2020-09-02 23:59] LABS: Absolute Lymphocytes (CBC) 0.9 K/uL (0.7-4.9); Basophils % 0.6 % (0-1.3); Lymphocytes % 10.3 % (15.3-44.8); MPV 10.5 fL (7.6-11.3); RBC Red Blood Cell Count 3.52 M/uL (3.86-4.86)
[2020-09-03] MEDS ORDERED: NA CHLORIDE 0.9% 2,000 ML ONE (00:17)
[2020-09-03 00:19] LABS: Protime INR 1.21
[2020-09-03] MEDS ORDERED: VANCOMYCIN 1 GM/VIAL ONE (00:19)
[2020-09-03] MEDS ORDERED: NA CHLORIDE 0.9% 250 ML ONE ×2 (00:19→00:49)
[2020-09-03] MEDS ORDERED: CEFEPIME/SWI 1gm 10 ML ONE (00:19)
[2020-09-03 00:37] LABS: Albumin 3.4 g/dL (3.4-5.0); Bilirubin Direct 0.2 mg/dL (0-0.2); Bilirubin Total 0.6 mg/dL (0.2-1.0); C-Reactive Protein 72.6 mg/L (<3.00); CKMB Creatine Kinase MB 1.4 ng/mL (0.3-3.6); Potassium 3.1 mmol/L (3.5-5.1); Protein, Total 7.5 g/dL (6.4-8.2); Troponin (Emerg Dept Use Only) 0.08 ng/mL (0.0-0.045)
[2020-09-03] MEDS ORDERED: ACYCLOVIR NA 500 MG/VIAL IVPB ONE (00:44)
[2020-09-03 03:12] LABS: Urine Blood Negative (Negative); Urine Glucose Negative (Negative); Urine Protein 1+ (Negative); Urine pH 6.5 (5.0-7.0)
--- NOTE | 2020-09-03 03:24 | EDPHYS ---
Physician Documentation [facility] Name: Lindsey Peter Age: 70 yrs Sex: Female : 1950 Arrival Date: 09/02/2020 Time: 22:49 Bed 2 Private MD: ED Physician Donna Fabian HPI: 09/03 00:33 This 70 yrs old Female presents to ER via Wheelchair with complaints of ma2 Nausea/Vomiting, Low Blood Pressure, General Weakness, Unable to Defecate. 00:33 The patient presents to the emergency department with nausea, vomiting, diarrhea. ma2 Onset: The symptoms/episode began/occurred gradually, 2 day(s) ago. Associated signs and symptoms: Pertinent negatives: belching, dysuria, fever, GI bleeding. Severity of symptoms: At their worst the symptoms were moderate in the emergency department the symptoms are unchanged. The patient has not experienced similar symptoms in the past. patient has MM last chemotherapy was on the patient is here with nausea vomiting diarrhea for few 1 day and generalized weakness, her initial BP was 80/50.. she has constipation as well . Historical: - Allergies: 09/02 23:30 No Known Allergies; bb - Home Meds: 23:30 Vitamin D3 400 unit Oral tab twice a day [Active]; atorvastatin 80 mg Oral tab 1 tab bb once daily [Active]; aspirin 81 mg Oral TbEC 1 tab once daily [Active]; losartan-hydrochlorothiazide 100-25 mg Oral tab 1 tab once daily [Active]; valacyclovir 500 mg Oral tab 1 tab once daily [Active]; - PMHx: 23:30 CVA; High Cholesterol; Hypertension; meningitis; multiple myeloma; Myocardial bb infarction; - Immunization history:: Adult Immunizations up to date. - Social history:: Smoking status: Patient/guardian denies using tobacco, the patient reports quitting approximately 6 years ago, Patient/guardian denies using alcohol, street drugs, The patient lives with family. - Family history:: not pertinent. ROS: 09/03 00:33 Constitutional: Negative for fever, chills, and weight loss. ma2 All other systems are negative. Exam: 00:33 Constitutional: This is a well developed, well nourished patient who is awake, alert, ma2 and in no acute distress. Neck: Trachea midline, no thyromegaly or masses palpated, and no cervical lymphadenopathy. Supple, full range of motion without nuchal rigidity, or vertebral point tenderness. No Meningismus. Chest/axilla: Normal chest wall appearance and motion. Nontender with no deformity. No lesions are appreciated. Cardiovascular: Regular rate and rhythm with a normal S1 and S2. No gallops, murmurs, or rubs. Normal PMI, no JVD. No pulse deficits. Respiratory: Lungs have equal breath sounds bilaterally, clear to auscultation and percussion. No rales, rhonchi or wheezes noted. No increased work of breathing, no retractions or nasal flaring. Abdomen/GI: Soft, non-tender, with normal bowel sounds. No distension or tympany. No guarding or rebound. No evidence of tenderness throughout. Skin: Warm, dry with normal turgor. Normal color with no rashes, no lesions, and no evidence of cellulitis. MS/ Extremity: Pulses equal, no cyanosis. Neurovascular intact. Full, normal range of motion. Neuro: Awake and alert, GCS 15, oriented to person, place, time, and situation. Cranial nerves II-XII grossly intact. Motor strength 5/5 in all extremities. Sensory grossly intact. Cerebellar exam normal. Normal gait. Vital Signs: 09/02 23:25 BP 73 / 52; Pulse 63; Resp 18 S; Temp 99.4(O); Pulse Ox 98% on R/A; Weight 56.7 kg (R); bb Height 5 ft. 1 in. (154.94 cm) (R); Pain 8/10; 23:58 BP 99 / 57; Pulse 85; Resp 16; Pulse Ox 100% on R/A; jm8 09/03 00:44 BP 112 / 34; Pulse 73; Resp 16; Pulse Ox 98% on R/A; ea 01:25 BP 105 / 37; Pulse 76; Resp 16; Pulse Ox 96% on R/A; jm8 03:12 BP 131 / 70; Pulse 78; Resp 18; Pulse Ox 92% ; ea 03:59 BP 126 / 47; Pulse 77; Resp 18; Pulse Ox 97% ; ea 04:49 BP 132 / 42; Pulse 71; Resp 18; Pulse Ox 97% on R/A; ea 09/02 23:25 Body Mass Index 23.62 (56.70 kg, 154.94 cm) bb MDM: 09/02 23:36 Patient medically screened. [facility] 09/03 00:33 Differential diagnosis: gastritis, appendicitis, diverticulitis, viral gastroenteritis. [facility] Data reviewed: vital signs, nurses notes. 00:36 ED course: patient also had shingle on left chest 2 weeks ago, rash has resolved, [facility] however pain still there, exam of left chest is unremarkable . 03:22 Counseling: I had a detailed discussion with the patient and/or guardian regarding: the [facility] historical points, exam findings, and any diagnostic results supporting the discharge/admit diagnosis, the presence of at least one elevated blood pressure reading (>120/80) during this emergency department visit, the need for outpatient follow up. Response to treatment: the patient's symptoms have markedly improved after treatment. 09/02 23:38 Order name: C-Reactive Protein [facility] 09/02 23:38 Order name: Bilirubin, Direct [facility] 09/02 23:38 Order name: Amylase, Serum [facility] 09/02 23:38 Order name: Basic Metabolic Panel [facility] 09/02 23:38 Order name: Blood Culture Adult (2) [facility] 09/02 23:38 Order name: CBC with Diff [facility] 09/02 23:38 Order name: Ckmb [facility] 09/02 23:38 Order name: CPK [facility] 09/02 23:38 Order name: Lactate; Complete Time: 00:36 [facility] 09/02 23:38 Order name: LFT's; Complete Time: 01:09 [facility] 09/02 23:38 Order name: Lipase; Complete Time: 01:09 [facility] 09/02 23:38 Order name: Procalcitonin; Complete Time: 01:09 [facility] 09/02 23:38 Order name: Protime (+inr); Complete Time: 00:36 [facility] 09/02 23:38 Order name: Ptt, Activated; Complete Time: 00:36 [facility] 09/02 23:38 Order name: Troponin (emerg Dept Use Only); Complete Time: 01:09 [facility] 09/02 23:38 Order name: Urine Microscopic Only [facility] 09/02 23:38 Order name: Chest Single View XRAY [facility] 09/02 23:39 Order name: C-Reactive Protein; Complete Time: 01:09 [facility] 09/02 23:39 Order name: Amylase; Complete Time: 01:09 [facility] 09/02 23:39 Order name: Basic Metabolic Panel; Complete Time: 01:09 [facility] 09/02 23:39 Order name: Blood Culture [facility] 09/02 23:39 Order name: CBC with Automated Diff; Complete Time: 00:07 [facility] 09/02 23:39 Order name: CKMB Creatine Kinase MB; Complete Time: 01:09 [facility] 09/02 23:39 Order name: Creatine Phosphokinase; Complete Time: 01:09 [facility] 09/03 00:57 Order name: Abdomen PR 09/03 02:20 Order name: SARS-COV-2 RT PCR; Complete Time: 02:26 [facility] 09/03 03:11 Order name: Urine Dipstick-Ancillary [facility] 09/02 23:38 Order name: Accucheck; Complete Time: 01:46 [facility] 09/02 23:38 Order name: Cardiac monitoring; Complete Time: 01:46 [facility] 09/02 23:38 Order name: EKG - Nurse/Tech; Complete Time: 01:58 [facility] 09/02 23:38 Order name: IV Saline Lock - Large Bore; Complete Time: 00:04 [facility] 09/02 23:38 Order name: Labs collected and sent; Complete Time: 00:04 [facility] 09/02 23:38 Order name: O2 Per Protocol; Complete Time: 00:04 [facility] 09/02 23:38 Order name: O2 Sat Monitoring; Complete Time: 00:04 [facility] 09/02 23:38 Order name: Urine Dipstick-Ancillary (obtain specimen); Complete Time: 03:14 [facility] 09/03 03:14 Order name: Straight Cath; Complete Time: 03:14 ea Administered Medications: 00:00 Drug: Cefepime 1 grams Route: IVPB; Rate: 200 ml/hr; Infused Over: 30 mins; Site: left ea antecubital; 00:12 Follow up: Response: No adverse reaction; IV Status: Completed infusion ea 00:11 Drug: vancoMYCIN 1 grams Route: IVPB; Infused Over: 2 hrs; Site: left antecubital; ea 02:06 Follow up: Response: No adverse reaction; IV Status: Completed infusion 8 00:12 Drug: NS 0.9% (30 ml/kg) 30 ml/kg Route: IV; Rate: bolus; Site: left antecubital; ea 01:25 Follow up: IV Status: Completed infusion jm8 03:13 Follow up: Response: No adverse reaction; IV Status: Completed infusion; IV Intake: ea 2000ml 02:06 Drug: Acyclovir 10 mg/kg Route: IVPB; Site: left antecubital; jm8 03:13 Follow up: Response: No adverse reaction; IV Status: Completed infusion; IV Intake: ea 250ml 03:34 Drug: NS 0.9% 1000 ml Route: IV; Rate: 1 bolus; Site: left antecubital; 8 04:43 Follow up: Response: No adverse reaction; IV Status: Completed infusion; IV Intake: ea 1000ml 04:49 Follow up: Response: No adverse reaction; IV Status: Completed infusion; IV Intake: ea 1000ml Disposition: 09/03/20 03:23 Hospitalization ordered by Rafael Narayan for Inpatient Admission. Preliminary diagnosis are Severe sepsis without septic shock, Dehydration. - Bed requested for Telemetry/MedSurg (Inpatient). - Status is Inpatient Admission. ea - Condition is Stable. - Problem is new. - Symptoms are unchanged. Signatures: Dispatcher [facility] Rubina Reid RN Snow Christy RN FLORES bb Aquiles Alvarez, NEWSPAPER PEDDLER-C NEWSPAPER PEDDLER-Cla1 Mohini Whiting RN Donna Collier ea, MD MD ma2 Malcaba, Joseph, RN RN jm8 Corrections: (The following items were deleted from the chart) 09/02 23:41 23:39 [facility]irubin [facility] 00[facility]57 09/02 23:40 Abdomen Pelvis W Con+CT.RAD.BRZ [facility]. [facility] 01:34 00:08 CORONAVIRUS+MR.LAB.BRZ ordered. [facility] 04:33 03:23 Hospitalization Ordered by Rafael Narayan DO for Inpatient Admission. Preliminary diagnosis is Severe sepsis without septic shock; Dehydration. Bed requested for Telemetry/MedSurg (Inpatient). Status is Inpatient Admission. Condition is Stable. Problem is new. Symptoms are unchanged. [facility] 05:07 04:33 09/03/2020 03:23 Hospitalization Ordered by Rafael Narayan DO for Inpatient ea Admission. Preliminary diagnosis is Severe sepsis without septic shock; Dehydration. Bed requested for Telemetry/MedSurg (Inpatient). Status is Inpatient Admission. Condition is Stable. Problem is new. Symptoms are unchanged. dw
--- NOTE | 2020-09-03 03:24 | ER ---
Nurse's Notes [facility] Name: Lindsey Peter Age: 70 yrs Sex: Female : 1950 Arrival Date: 09/02/2020 Time: 22:49 Bed 2 Private MD: Diagnosis: Severe sepsis without septic shock;Dehydration Presentation: 09/02 23:25 Chief complaint: Patient states: she has been vomiting all day and is unable to keep bb anything down, she is having back pain 11/17 not sure is it is related to shingles which she had last month, also had recent carotid artery surgery she was constipated but had an enema today and was able to have a bowel movement. Coronavirus screen: At this time, the client does not indicate any symptoms associated with coronavirus-19. Ebola Screen: No symptoms or risks identified at this time. Initial Sepsis Screen: Does the patient meet any 2 criteria? No. Patient's initial sepsis screen is negative. Does the patient have a suspected source of infection? No. Patient's initial sepsis screen is negative. Risk Assessment: Do you want to hurt yourself or someone else? Patient reports no desire to harm self or others. Onset of symptoms was September 02, 2020. 23:25 Method Of Arrival: Wheelchair bb 23:25 Acuity: IVANA 2 bb Historical: - Allergies: 23:30 No Known Allergies; bb - Home Meds: 23:30 Vitamin D3 400 unit Oral tab twice a day [Active]; atorvastatin 80 mg Oral tab 1 tab bb once daily [Active]; aspirin 81 mg Oral TbEC 1 tab once daily [Active]; losartan-hydrochlorothiazide 100-25 mg Oral tab 1 tab once daily [Active]; valacyclovir 500 mg Oral tab 1 tab once daily [Active]; - PMHx: 23:30 CVA; High Cholesterol; Hypertension; meningitis; multiple myeloma; Myocardial bb infarction; - Immunization history:: Adult Immunizations up to date. - Social history:: Smoking status: Patient/guardian denies using tobacco, the patient reports quitting approximately 6 years ago, Patient/guardian denies using alcohol, street drugs, The patient lives with family. - Family history:: not pertinent. Screenin/27 00:10 Abuse screen: Denies threats or abuse. Nutritional screening: No deficits noted. ea Tuberculosis screening: No symptoms or risk factors identified. Fall Risk IV access (20 points). Assessment: 00:09 General: Appears uncomfortable, Behavior is appropriate for age. Pain: Denies pain. ea Neuro: Level of Consciousness is awake, alert, obeys commands, Oriented to person, place, time. Cardiovascular: Patient's skin is warm and dry. Respiratory: Airway is patent Respiratory effort is even, unlabored, Respiratory pattern is regular, symmetrical. GI: Abdomen is non-distended. Derm: Skin is pink, warm \T\ dry. 01:58 Reassessment: Patient and/or family updated on plan of care and expected duration. Pain ea level reassessed. Patient is alert, oriented x 3, equal unlabored respirations, skin warm/dry/pink. Awaiting on covid results. 03:15 Reassessment: Patient and/or family updated on plan of care and expected duration. Pain ea level reassessed. Patient is alert, oriented x 3, equal unlabored respirations, skin warm/dry/pink. 04:50 Reassessment: Patient and/or family updated on plan of care and expected duration. Pain ea level reassessed. Patient is alert, oriented x 3, equal unlabored respirations, skin warm/dry/pink. Pt resting with eyes closed, respirations even and unlabored, chest expansions even and unlabored. Chest expansion even and unlabored. Vital Signs: 09/02 23:25 BP 73 / 52; Pulse 63; Resp 18 S; Temp 99.4(O); Pulse Ox 98% on R/A; Weight 56.7 kg (R); bb Height 5 ft. 1 in. (154.94 cm) (R); Pain 8/10; 23:58 BP 99 / 57; Pulse 85; Resp 16; Pulse Ox 100% on R/A; jm8 09/03 00:44 BP 112 / 34; Pulse 73; Resp 16; Pulse Ox 98% on R/A; ea 01:25 BP 105 / 37; Pulse 76; Resp 16; Pulse Ox 96% on R/A; jm8 03:12 BP 131 / 70; Pulse 78; Resp 18; Pulse Ox 92% ; ea 03:59 BP 126 / 47; Pulse 77; Resp 18; Pulse Ox 97% ; ea 04:49 BP 132 / 42; Pulse 71; Resp 18; Pulse Ox 97% on R/A; ea 09/02 23:25 Body Mass Index 23.62 (56.70 kg, 154.94 cm) bb ED Course: 09/02 22:49 Patient arrived in ED. bp1 23:28 Triage completed. bb 23:30 Arm band placed on Patient placed in an exam room, on a stretcher, on underground production foreperson, bb on pulse oximetry. Family accompanied patient. 23:36 Donna Fabian MD is Attending Physician. ma2 23:51 Mohini Whiting RN is Primary Nurse. ea 09/03 00:04 Inserted saline lock: 22 gauge in left antecubital area, using aseptic technique. Blood ds4 collected. 00:10 Patient has correct armband on for positive identification. Bed in low position. Call ea light in reach. Side rails up X2. 01:16 Abdomen In Process Unspecified. EDMS 01:46 No provider procedures requiring assistance completed. ea 03:13 Chest Single View XRAY In Process Unspecified. EDMS 03:14 Straight cath inserted, using sterile technique, 16 Fr. Specimen obtained. ea 03:23 Rafael Narayan DO is Hospitalizing Provider. ma2 04:42 Patient admitted, IV remains in place. ea Administered Medications: 00:00 Drug: Cefepime 1 grams Route: IVPB; Rate: 200 ml/hr; Infused Over: 30 mins; Site: left ea antecubital; 00:12 Follow up: Response: No adverse reaction; IV Status: Completed infusion ea 00:11 Drug: vancoMYCIN 1 grams Route: IVPB; Infused Over: 2 hrs; Site: left antecubital; ea 02:06 Follow up: Response: No adverse reaction; IV Status: Completed infusion 8 00:12 Drug: NS 0.9% (30 ml/kg) 30 ml/kg Route: IV; Rate: bolus; Site: left antecubital; ea 01:25 Follow up: IV Status: Completed infusion jm8 03:13 Follow up: Response: No adverse reaction; IV Status: Completed infusion; IV Intake: ea 2000ml 02:06 Drug: Acyclovir 10 mg/kg Route: IVPB; Site: left antecubital; jm8 03:13 Follow up: Response: No adverse reaction; IV Status: Completed infusion; IV Intake: ea 250ml 03:34 Drug: NS 0.9% 1000 ml Route: IV; Rate: 1 bolus; Site: left antecubital; jm8 04:43 Follow up: Response: No adverse reaction; IV Status: Completed infusion; IV Intake: ea 1000ml 04:49 Follow up: Response: No adverse reaction; IV Status: Completed infusion; IV Intake: ea 1000ml Intake: 03:13 IV: 250ml; Total: 250ml. ea 03:13 IV: 2000ml; Total: 2250ml. ea 04:43 IV: 1000ml; Total: 3250ml. ea 04:49 IV: 1000ml; Total: 4250ml. ea Outcome: 03:23 Decision to Hospitalize by Provider. ma2 04:42 Instructed on the need for admit, Demonstrated understanding of instructions. ea 05:06 Admitted to Med/surg accompanied by tech, via stretcher, with chart, Report called to ea Receiving nurse 05:06 Condition: stable 05:07 Patient left the ED. ea Signatures: Dispatcher [employer] EDMS Snow Martinez RN RN bb Swanson, Donovan ds4 Mohini Whiting RN RN ea Alzahri, Mohammad, MD MD ma2 Dasha Mckinnon Joseph, RN RN jm8 Corrections: (The following items were deleted from the chart) 04:43 03:59 BP 126 / 47; Pulse 77bpm; Resp 95bpm; Pulse Ox 97%; ea naye
[2020-09-03] MEDS ORDERED: NA CHLORIDE 0.9% 1,000 ML ONE (03:53)
--- NOTE | 2020-09-03 04:09 | P.HP ---
Certification for Inpatient Patient admitted to: Inpatient With expected LOS: >2 Midnights Patient will require the following post-hospital care: None Practitioner: I am a practitioner with admitting privileges, knowledge of patient current condition, hospital course, and medical plan of care. Services: Services provided to patient in accordance with Admission requirements found in Title 42 Section 412.3 of the Code of Federal Regulations Patient History Date of Service: 09/03/20 Reason for admission: Vomiting, hypotension History of Present Illness: 70-year-old female with history of multiple myeloma-in remission, hypertension, hyperlipidemia, CVA, CAD presents emergency department for vomiting, hypotension. Patient reports she has been significantly constipated over the course of the last couple of weeks, finely had bowel movement after an enema yesterday, today began having vomiting. Patient vomited 3-4 times and has not tolerated anything by mouth, this evening blood pressure was measured at home and noted to be low. Patient was evaluated in the emergency department, initially patient was hypotensive, labs significant for white blood cell count 8.6 potassium 3.1 creatinine 1.56 GFR 33, glucose 166 troponin 0.08 C-reactive protein 72.6 pro calcitonin 2.06 urinalysis negative for signs infection CT abdomen pelvis without any acute findings. Patient also had recent right carotid endarterectomy, wound appears to be healing well, some minor swelling noted which patient and at bedside reports has gone down significantly since her discharge. Patient without any abdominal pain or tenderness at this time, does not appear septic, was never tachycardic likely hypertension related to hypovolemia from poor oral intake and vomiting. ED provider wishes to admit for further evaluation and management. Allergies No Known Drug Allergies Allergy (Verified 06/09/16 21:11) Unknown No Known Allergies Allergy (Uncoded 03/31/17 20:46) Unknown Home Medications: Atorvastatin Calcium [Lipitor] 80 mg PO DAILY #90 tablet 06/12/16 Losartan Potassium [Cozaar*] 50 mg PO DAILY #90 tablet 06/12/16 Aspirin [Low Dose Aspirin EC] 81 mg PO DAILY 08/07/20 Bimatoprost [Lumigan Opthalmic Drops*] 1 drop EACH EYE BEDTIME 08/07/20 Calcium Carbonate/Vitamin D3 [Calcium 600 mg-D3 20 Mcg Tab] 1 each PO BID 08/07/20 Cholecalciferol (Vitamin D3) [Vitamin D3] 400 unit PO BID 08/07/20 Lenalidomide [Revlimid] 10 mg PO DAILY 08/07/20 Valacyclovir HCl [Valacyclovir] 1,000 mg PO TID 7 Days #21 tablet 08/07/20 - Past Medical/Surgical History Diabetic: No -: CAD, [place] -: Hypertension -: High Cholesterol -: Multiple myeloma-in remission -: gastritis -: copd -: tubal ligation -: Stem-cell transplant Psychosocial/ Personal History: Patient is unemployed, lives with her - Family History Mother -: Heart disease, Stroke Notes: dementia Father -: Cancer Notes: colon - Social History Alcohol use: No CD- Drugs: No Caffeine use: Yes Place of Residence: Home Review of Systems 10-point ROS is otherwise unremarkable General: Weakness, Malaise Gastrointestinal: Nausea, Vomiting, Constipation Physical Examination - Physical Exam General: Alert, In no apparent distress, Oriented x3 HEENT: Atraumatic, PERRLA, Mucous membr. moist/pink, EOMI, Sclerae nonicteric Neck: Supple, 2+ carotid pulse no bruit, No LAD, Without JVD or thyroid abnormality Respiratory: Clear to auscultation bilaterally, Normal air movement Cardiovascular: Regular rate/rhythm, Normal S1 S2 Gastrointestinal: Normal bowel sounds, No tenderness Musculoskeletal: No tenderness Integumentary: No rashes Neurological: Normal gait, Normal speech, Normal strength at 5/5 x4 extr, Normal tone, Normal affect Lymphatics: No axilla or inguinal lymphadenopathy - Studies Laboratory Data (last 24 hrs) 09/03/20 00:05: PT 14.0 H, INR 1.21, APTT 27.6 09/02/20 23:50: WBC 8.60, Hgb 12.0, Hct 35.0 L, Plt Count 299 09/02/20 23:50: Sodium 136, Potassium 3.1 L, BUN 23 H, Creatinine 1.56 H, Glucose 166 H, Total Bilirubin 0.6, AST 17, ALT 21, Alkaline Phosphatase 99, Amylase 139 H, Lipase 50 L Assessment and Plan - Plan Assessment Hypotension likely secondary to hypovolemia from nausea, vomiting, poor oral intake Acute kidney injury Mild troponin elevation Multiple myeloma-in remission Recent right carotid endarterectomy Hypertension, hyperlipidemia, CAD, history of CVA Plan Hypotension likely secondary to hypovolemia from nausea, vomiting, poor oral intake: NPO aside from ice chips and sips of water, lactate negative, no elevation in white blood cell count, patient not tachycardic, does not appear to be septic. Patient did receive 30 cc/kg fluid bolus, blood pressure did improve. Pro calcitonin and CRP are elevated but no source or sign of infection present, will continue with empiric antibiotics Rocephin/Flagyl at this time. Blood cultures were obtained. Will need to follow. Suspect gastritis/GERD will provide patient with Protonix and p.r.n. anti emetics. DVT prophylaxis with Lovenox 40 mg subcutaneous once daily. Acute kidney injury: Likely related to hypovolemia, hypotension, will provide patient with IV fluids, recheck labs, consult nephrology as necessary. Mild troponin elevation: Initial troponin 0.08, patient without any chest pain/shortness of breath, EKG without acute changes, chest x-ray unremarkable, will trend troponin levels consult cardiology as necessary. Likely related to hypotension from dehydration. Recent right carotid endarterectomy: Wound appears to be healing well, mild swelling noted around the site family reports this has improved since her discharge. No pain or signs of acute change. Multiple myeloma-in remission: Obtain and continue home medications as appropriate Hypertension, hyperlipidemia, CAD, history of CVA: Obtain and continue home medications as appropriate Discharge Plan: Home Plan to discharge in: 48 Hours - Advance Directives Does patient have a Living Will: No Does patient have a Durable POA for Healthcare: No - Code Status/Comfort Care Code Status Assessed: Yes (Full code) Critical Care: No Time Spent Managing Pts Care (In Minutes): 55
[2020-09-03] MEDS ORDERED: NA CHLORIDE 0.9% 1,000 ML IV SCH (05:18)
[2020-09-03] MEDS ORDERED: SODIUM CHLORIDE 0.9% 10ML INJ IV PRN (05:18)
[2020-09-03] MEDS ORDERED: ACETAMINOPHEN 500 MG TAB PO PRN (05:18)
[2020-09-03] MEDS ORDERED: ONDANSETRON 4 MG/2 ML VIAL IV PRN (05:18)
[2020-09-03 05:24] VITALS: O2SAT 97
[2020-09-03] MEDS ORDERED: METRONIDAZOLE 500mg IVPB 500 MG/100 ML BAG IV SCH (06:00)
[2020-09-03 06:06] LABS: Absolute Lymphocytes (CBC) 1.3 K/uL (0.7-4.9); Basophils % 0.3 % (0-1.3); Hematocrit 29.7 % (36.0-45.0); Lymphocytes % 11.7 % (15.3-44.8); MPV 10.7 fL (7.6-11.3); RBC Red Blood Cell Count 2.94 M/uL (3.86-4.86)
[2020-09-03 06:18] VITALS: BMI 27.4
[2020-09-03] MEDS ORDERED: NA CHLORIDE 0.9% 500 ML IV ONE (06:38)
[2020-09-03 06:39] LABS: Albumin 2.7 g/dL (3.4-5.0); Bilirubin Total 0.5 mg/dL (0.2-1.0); Magnesium 1.9 mg/dL (1.8-2.4); Potassium 3.5 mmol/L (3.5-5.1); Thyroid Stimulating Hormone 0.169 uIU/mL (0.360-3.740); Troponin I 0.06 ng/mL (0.0-0.045)
[2020-09-03] MEDS: KCL 20 MEQ/100 mL IVPB 20 MEQ/100 ML BAG IV SCH ×2 (07:23→10:00)
[2020-09-03 08:06] LABS: Blood Morphology Comment NOT SEEN (NOT SEEN); Platelet Estimate ADEQ
--- NOTE | 2020-09-03 08:58 | EKG ---
Test Date: 2020-09-03 Test Time: 01:53:51 Preschool Assistant: KEATON MEASUREMENT RESULTS: Intervals: Rate: 78 DC: 178 QRSD: 94 QT: 418 QTc: 476 [place]: P: 47 DC: 178 QRS: 42 T: 61 INTERPRETIVE STATEMENTS: Normal sinus rhythm ST & T wave abnormality, consider anterolateral ischemia Prolonged QT Abnormal ECG Compared to ECG 08/06/2020 19:37:36 ST (T wave) deviation now present Possible ischemia now present Prolonged QT interval now present Sinus bradycardia no longer present T-wave abnormality no longer present Electronically Signed On 09-03-20 08:58:35 CDT by Aashish Machado
[2020-09-03] MEDS ORDERED: CEFTRIAXONE 1 GM/NS 50 ML 1 GM/50 ML BAG IV SCH (09:00)
[2020-09-03] MEDS ORDERED: ENOXAPARIN 30 MG/0.3 ML SQ SCH (09:00)
[2020-09-03] MEDS ORDERED: PANTOPRAZOLE 40 MG INJ IVP SCH (09:00)
--- NOTE | 2020-09-03 09:00 | RAD REPORT ---
EXAM DESCRIPTION: RAD - Chest Single View - 09/03/2020 3:13 am CLINICAL HISTORY: CONGESTION Chest pain. COMPARISON: Chest Single View dated 08/06/2020; Chest Pa And Lat (2 Views) dated 03/13/2020; Chest Pa And Lat (2 Views) dated 04/27/2019; Chest Single View dated 01/20/2018 FINDINGS: Portable technique limits examination quality. The lungs are grossly clear. The heart is normal in size. No displaced fractures. IMPRESSION: No acute intrathoracic process suspected.
--- NOTE | 2020-09-03 11:01 | RAD REPORT ---
EXAM DESCRIPTION: Abdomen Pelvis Wo Contrast 09/03/2020 1:34 AM CDT CLINICAL HISTORY: 70 years, Female, ABD PAIN COMPARISON: 09/08/2017 TECHNIQUE: Multiple transaxial tomograms of the abdomen and pelvis were performed from the lung base s to the symphysis pubis 5 mm slice thickness at 5 mm interval reconstruction, without administration of IV and oral contrast. Multiplanar reformats in the sagittal and coronal plane were generated and reviewed. This exam was performed according to our departmental dose-optimization protocol, which includes auto mated exposure control, adjustment of the mA and/or kV according to patient size and/or use of iterat nan reconstruction technique. FINDINGS: The lack of IV and oral contrast limits evaluation of solid organs, subtle lesions cannot be excluded. The lung bases demonstrate to be clear. Small hiatal hernia. Grossly the unopacified liver, gallbladder, pancreas and adrenal glands demonstrate to be within norm al limits, no significant focal lesions were identified. Again there is atrophic and calcific appea ata of the spleen suggesting the possibility of autosplenectomy. Again the gallbladder is distended similar to prior study. The kidneys demonstrate grossly unremarkable. There is no evidence for nephrolithiasis and/or hydro nephrosis. No focal masses were demonstrated. The ureters displays normal appearance with normal caliber, no hydroureter was seen. Grossly the unopacified stomach, small bowel and large bowel demonstrate to be within normal limits. There is no evidence for bowel dilatation/or free air. The appendix is normal. The urinary bladder demonstrate to be within normal limits. The uterus is atrophic. There are no adne xal masses The aorta demonstrate minimal diffuse atherosclerotic disease with minimal dilatation infr arenal portion measuring 2.2 x 2.3 cm on image 41. There is no retroperitoneal lymphadenopathy. T here is no evidence for ascites. The the bone windows demonstrate diffuse bony osteopenia. Degenerati ve disc disease at L5/S1. There is findings just most likely vertebral body hemangioma at L1. There i s a anterior vertebral body lytic lesion at L2 measuring 1.6 cm on image axial 26/ and sagittal yared ge 69/123 suspicious for metastatic disease and/or multiple myeloma. Previous described destructive l esion within the anterior right iliac crest has decreased in size measuring 4.4 x 2.7 cm previously m easured 5.5 cm most likely related to treated multiple myeloma lesion. IMPRESSION: No evidence for nephrolithiasis and/or hydronephrosis. 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 1.6 cm anterior vertebral body lytic lesion at L2 suspicious for metastatic disease and/or multiple m yeloma. Previous described destructive lesion within the anterior right iliac crest has decreased in size mos t likely related to treated multiple myeloma lesion. Electronically signed by: Bentley Mejia MD 09/03/2020 1:43 AM CDT Due to temporary technical issues with the PACS/Fluency reporting system, reports are being signed by the in house radiologist without review as a courtesy to ensure prompt reporting. The interpreting r adiologist is fully responsible for the content of the report.
[2020-09-03 14:12] VITALS: BP 136/64; TEMP 98.1
--- NOTE | 2020-09-03 15:16 | P.DS ---
Admission Date: 09/03/20 Discharge Date: 09/03/20 Primary Care Provider: Oncology:Dr. Kingsley Disposition: ROUTINE DISCHARGE Discharge Condition: GOOD Reason for Admission: Vomiting, hypotension Consultations: None Procedures: COVID: [Negative] CXR: COMPARISON: Chest Single View dated 08/06/2020; Chest Pa And Lat (2 Views) dated 03/13/2020; Chest Pa And Lat (2 Views) dated 04/27/2019; Chest Single View dated 01/20/2018 FINDINGS: Portable technique limits examination quality. The lungs are grossly clear. The heart is normal in size. No displaced fractures. IMPRESSION: No acute intrathoracic process suspected. CT Scan: COMPARISON: 09/08/2017 TECHNIQUE: Multiple transaxial tomograms of the abdomen and pelvis were performed from the lung bases to the symphysis pubis 5 mm slice thickness at 5 mm interval reconstruction, without administration of IV and oral contrast. Multiplanar reformats in the sagittal and coronal plane were generated and reviewed. This exam was performed according to our departmental dose-optimization protocol, which includes automated exposure control, adjustment of the mA and/or kV according to patient size and/or use of iterative reconstruction technique. FINDINGS: The lack of IV and oral contrast limits evaluation of solid organs, subtle lesions cannot be excluded. The lung bases demonstrate to be clear. Small hiatal hernia. Grossly the unopacified liver, gallbladder, pancreas and adrenal glands demonstrate to be within normal limits, no significant focal lesions were identified. Again there is atrophic and calcific appearance of the spleen suggesting the possibility of autosplenectomy. Again the gallbladder is distended similar to prior study. The kidneys demonstrate grossly unremarkable. There is no evidence for nephrolithiasis and/or hydronephrosis. No focal masses were demonstrated. The ureters displays normal appearance with normal caliber, no hydroureter was seen. Grossly the unopacified stomach, small bowel and large bowel demonstrate to be within normal limits. There is no evidence for bowel dilatation/or free air. The appendix is normal. The urinary bladder demonstrate to be within normal limits. The uterus is atrophic. There are no adnexal masses The aorta demonstrate minimal diffuse atherosclerotic disease with minimal dilatation infrarenal portion measuring 2.2 x 2.3 cm on image 41. There is no retroperitoneal lymphadenopathy. There is no evidence for ascites. The the bone windows demonstrate diffuse bony osteopenia. Degenerative disc disease at L5/S1. There is findings just most likely vertebral body hemangioma at L1. There is a anterior vertebral body lytic lesion at L2 measuring 1.6 cm on image axial / and sagittal image 69/123 suspicious for metastatic disease and/or multiple myeloma. Previous described destructive lesion within the anterior right iliac crest has decreased in size measuring 4.4 x 2.7 cm previously measured 5.5 cm most likely related to treated multiple myeloma lesion. IMPRESSION: No evidence for nephrolithiasis and/or hydronephrosis. 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 1.6 cm anterior vertebral body lytic lesion at L2 suspicious for metastatic disease and/or multiple myeloma. Previous described destructive lesion within the anterior right iliac crest has decreased in size most likely related to treated multiple myeloma lesion. Medical Problem List: Hypotension, nausea and vomiting secondary to hypovolemia/acute renal insufficiency/dehydration likely related to gastroenteritis Mild troponin elevation secondary to above Multiple myeloma-in remission with metastasis to the L-spine and anterior right iliac crest Recent right carotid endarterectomy Hypertension Hyperlipidemia CAD History of CVA Carotid arterial disease with recent carotid arterectomy Brief History of Present Illness: 70-year-old female with history of multiple myeloma-in remission, hypertension, hyperlipidemia, CVA, CAD presents emergency department for nausea, vomiting. Patient has had poor intake. Patient also with low blood pressure. Patient reports she has been significantly constipated over the course of the last couple of weeks. She finally had a bowel movement yesterday after she took an enema. After that she began to have increased nausea and vomiting. Patient came to the ER for further evaluation. Patient was initially hypotensive but this improved with IV fluids. Labs significant for white blood cell count 8.6 potassium 3.1 creatinine 1.56 GFR 33, glucose 166 troponin 0.08 C-reactive protein 72.6 pro calcitonin 2.06 urinalysis negative for signs infection. CT abdomen pelvis without any acute findings. Patient also had recent right carotid endarterectomy. Patient was admitted for further evaluation and treatment. Hospital Course: Patient presented with Hypotension, nausea and vomiting secondary to hypovolemia/acute renal insufficiency/dehydration likely related to gastroenteritis. Patient was admitted for further treatment. Blood pressure medication was held. Patient received IV antibiotic therapy. Chest x-ray unremarkable. Troponin slightly elevated but no evidence of cardiac dysfunction. CT did not show any evidence of obstruction or perforation. Patient improved with IV fluids. Renal function also improved. Patient has tolerated her diet. Patient desires to go home. At discharge the patient will continue with amoxicillin 250 mg 1 pill twice daily and Flagyl 500 mg 3 times a day for 7 days. Patient will also continue with lactobacillus 3 times a day for at least 10 days. She is to increase oral intake over the next several days. Recommend to recheck labBMP in 1 week to monitor her progress. She is to follow-up with her PCP within 1 week to follow-up hospitalization. Patient may require GI evaluation as an outpatient to further address. Patient with multiple myeloma currently on oral chemotherapy. CT scan revealed metastasis to the lumbar spine and anterior right iliac crest. This is being followed closely by local oncology and at [facility] (formerly [facility] She has held her oral chemotherapy over the last 2 weeks due to recent right carotid enterectomy. Recommend follow-up with oncology within 1 week to follow-up hospitalization and continue her care. Patient with hypertension, hyperlipidemia. At discharge patient takes Lipitor 80 mg daily and losartan hydrochlorothiazide 100/25 mg daily. Recommend to monitor blood pressure daily. Recommend to maintain blood pressure less than 130/80. If blood pressure systolic less than 110 then she may need to hold her losartan hydrochlorothiazide medication. Recommend follow-up with her PCP within 1 week to follow-up this hospitalization. Further adjustment in medication can be done by PCP if required. Patient with recent right carotid artery endarterectomy. This is healing fine. No need for intervention. Recommend follow-up with her surgeon. Patient will continue with aspirin 81 mg daily. Vital Signs/Physical Exam: Temp Pulse Resp BP Pulse Ox 98.1 F 71 17 136/64 99 09/03/20 12:09/03/20 12:00 09/03/20 12:00 09/03/20 12:09/03/20 12:00 General: Alert, In no apparent distress, Oriented x3, Cooperative HEENT: Atraumatic Neck: Supple Respiratory: Clear to auscultation bilaterally, Normal air movement Cardiovascular: Normal pulses, Regular rate/rhythm Gastrointestinal: Normal bowel sounds, Soft and benign, Non-distended, No tenderness, No masses, No rebound, No guarding Musculoskeletal: No erythema, No tenderness, No warmth Integumentary: No tenderness/swelling Neurological: Normal speech, Normal strength at 5/5 x4 extr, Normal tone, Normal affect Laboratory Data at Discharge: WBC 11.10 K/uL (4.3-10.9) H D 09/03/20 05:47 Hgb 10.0 g/dL (12.0-15.0) L 09/03/20 05:47 Hct 29.7 % (36.0-45.0) L D 09/03/20 05:47 Plt Count 249 K/uL (152-406) 09/03/20 05:47 PT 14.0 SECONDS (9.5-12.5) H 09/03/20 00:05 INR 1.21 09/03/20 00:05 APTT 27.6 SECONDS (24.3-36.9) 09/03/20 00:05 Sodium 141 mmol/L (136-145) 09/03/20 05:47 Potassium 3.5 mmol/L (3.5-5.1) 09/03/20 05:47 BUN 21 mg/dL (7-18) H 09/03/20 05:47 Creatinine 1.22 mg/dL (0.55-1.3) 09/03/20 05:47 Glucose 135 mg/dL (74-106) H 09/03/20 05:47 Magnesium 1.9 mg/dL (1.8-2.4) 09/03/20 05:47 Total Bilirubin 0.5 mg/dL (0.2-1.0) 09/03/20 05:47 AST 18 U/L (15-37) 09/03/20 05:47 ALT 19 U/L (12-78) 09/03/20 05:47 Alkaline Phosphatase 80 U/L (45-117) 09/03/20 05:47 Troponin I 0.04 ng/mL (0.0-0.045) 09/03/20 11:51 Triglycerides 73 mg/dL (<150) 09/03/20 05:47 Cholesterol 86 mg/dL (<200) 09/03/20 05:47 HDL Cholesterol 52 mg/dL (40-60) 09/03/20 05:47 Cholesterol/HDL Ratio 1.65 09/03/20 05:47 Amylase 139 U/L (25-115) H 09/02/20 23:50 Lipase 50 U/L (73-393) L 09/02/20 23:50 Home Medications: Amoxicillin [Amoxil Cap*] 250 mg PO BID #14 cap 09/03/20 Aspirin [Aspirin EC 81 MG] 81 mg PO DAILY 09/03/20 Atorvastatin Calcium [Lipitor] 80 mg PO DAILY 09/03/20 Bimatoprost [Lumigan Opthalmic Drops*] 1 drop EACH EYE DAILY 09/03/20 Calcium Carbonate/Vitamin D3 [Calcium 600 mg-D3 20 Mcg Tab] 1 each PO BID 09/03/20 Famotidine [Pepcid] 20 mg PO BID #60 tab 09/03/20 Lactobacillus Acidophilus [Acidophilus Lactobacilli] 1 each PO TID #30 capsule 09/03/20 Lenalidomide [Revlimid] 10 mg PO DAILY 09/03/20 Losartan/Hydrochlorothiazide [Losartan-Hctz 100-25 mg Tab] 1 tab PO DAILY 09/03/20 metroNIDAZOLE [Flagyl] 500 mg PO Q8H #21 tablet 09/03/20 New Medications: Lactobacillus Acidophilus [Acidophilus Lactobacilli] 1 each PO TID #30 capsule Amoxicillin [Amoxil Cap*] 250 mg PO BID #14 cap metroNIDAZOLE [Flagyl] 500 mg PO Q8H #21 tablet Famotidine [Pepcid] 20 mg PO BID #60 tab Physician Discharge Instructions: Patient presented with Hypotension, nausea and vomiting secondary to hypovolemia/acute renal insufficiency/dehydration likely related to gastroenteritis. Patient was admitted for further treatment. Blood pressure medication was held. Patient received IV antibiotic therapy. Chest x-ray unremarkable. Troponin slightly elevated but no evidence of cardiac dysfunction. CT did not show any evidence of obstruction or perforation. Patient improved with IV fluids. Renal function also improved. Patient has tolerated her diet. Patient ambulating well. Patient desires to go home. At discharge the patient will continue with amoxicillin 250 mg 1 pill twice daily and Flagyl 500 mg 3 times a day for 7 days. Patient will also continue with lactobacillus 3 times a day for at least 10 days. She is to increase oral intake over the next several days. Recommend to recheck labBMP in 1 week to monitor her progress. She is to follow-up with her PCP within 1 week to follow- up hospitalization. Patient may require GI evaluation as an outpatient to further address if this persists. Patient with multiple myeloma currently on oral chemotherapy. CT scan revealed metastasis to the lumbar spine and anterior right iliac crest. This is being followed closely by local oncology and at [facility] (formerly [facility]). She has held her oral chemotherapy over the last 2 weeks due to recent right carotid enterectomy. Recommend follow-up with oncology within 1 week to follow-up hospitalization and continue her care. Patient with hypertension, hyperlipidemia. At discharge patient takes Lipitor 80 mg daily and losartan hydrochlorothiazide 100/25 mg daily. Recommend to monitor blood pressure daily. Recommend to maintain blood pressure less than 130/80. If blood pressure systolic less than 110 then she may need to hold her losartan hydrochlorothiazide medication. Recommend follow-up with her PCP within 1 week to follow-up this hospitalization. Further adjustment in medication can be done by PCP if required. Patient with recent right carotid artery endarterectomy. This is healing fine. No need for intervention. Recommend follow-up with her surgeon. Patient will continue with aspirin 81 mg daily. Diet: AHA Activity: Ad scooter Followup: Mitchell Clark MD [Primary Care Provider] - Time spent managing pt's care (in minutes): 55
[2020-09-04] MEDS ORDERED: CEFTRIAXONE/SWI 1gm 1 GM/10 ML SYR IV SCH
[2020-09-04] MEDS ORDERED: ENOXAPARIN 40 MG/0.4 ML SQ SCH (09:00)
== END 2020-09-03 16:52 | disposition home or self-care (01) ==
LOC: ER 22:46 → ERHOLD 09-03 03:47 → INTOOBSV 09-03 03:47 → 2ND 09-03 04:49
PROVIDERS: ADMIT Family Medicine; ATTEND Family Medicine
DX: I95.9 Hypotension, unspecified (principal); R11.2 Nausea with vomiting, unspecified; E86.1 Hypovolemia; N28.9 Disorder of kidney and ureter, unspecified; R77.8 Other specified abnormalities of plasma proteins; C90.01 Multiple myeloma in remission; I10 Essential (primary) hypertension; Z20.822 Contact with and (suspected) exposure to COVID-19; E78.5 Hyperlipidemia, unspecified; I25.10 Atherosclerotic heart disease of native coronary artery without angina pectoris; Z86.73 Personal history of transient ischemic attack (TIA), and cerebral infarction without residual deficits; Z92.21 Personal history of antineoplastic chemotherapy; I25.2 Old myocardial infarction; J44.9 Chronic obstructive pulmonary disease, unspecified; Z94.84 Stem cells transplant status
CPT/HCPCS: 96365; 96367; 96361; 93005; 87040; 85025 ×2; 80048; 36415; 82150; 83735; 82550; 80061; 80076; 84443; 81003; 84484 ×3; 82553; 84439; 83690; 80053; 84145 ×2; 86140; 74176; 71045; 51702; 96375; 99285; U0003; C9113; J3480 ×2; J1650; J7050; J7040; J7030 ×2; J0133

== ENCOUNTER 2022-04-18 15:24 | Inpatient (IN) | payer OTHER ==
--- OUTSIDE RECORDS SUMMARY | 2022-04-18 15:31 | XMS REPORT | Clinical Summary ---
:1950 Author Organization [facility] MD [facility] Address [address] [place] [address] Care Team Providers Name Role Phone Davide Agudelo MD Unavailable [phone] Con Kwan MD Primary Care Provider Daily Kingsley Unavailable Mitchell Ramírez MD Unavailable [phone] Allergies No known active allergies Medications Medication Sig Dispensed Refills Start End Status Date Date bimatoprost (LUMIGAN) Administer 1 0 Active 0.01% ophthalmic drops drop to both eyes at bedtime. cholecalciferol, Take 400 Units 0 Active vitamin D3, 400 units by mouth twice tablet daily. calcium Take 1 tablet 0 Active carbonate-vitamin D3 by mouth twice 500 mg-10 mcg (400 daily. unit) tab atorvastatin (LIPITOR) Take 80 mg by 0 Active 80 mg tablet mouth daily. lenalidomide (REVLIMID) Take 10 mg by 0 Active capsule 10 mouth. For 21 mgIndications: multiple days then 7 myeloma days off losartan 50 mg tab 100 Take 1 tablet 0 Active mg, hydroCHLOROthiazide by mouth 25 mg tab 25 mg daily. aspirin 81 mg EC tablet Take 81 mg by 0 Active mouth daily. omeprazole (PriLOSEC) Take 40 mg by 0 Active 40 MG capsule mouth every morning before breakfast. LORazepam (ATIVAN) 1 mg 0 04/25/20 Active tablet 22 lansoprazole (PREVACID) Take 30 mg by 0 06/17/[address] capsule mouth daily. 22 latanoprost (XALATAN) Administer 1 0 06/19/19 Active 0.005% ophthalmic drop to both 22 solution eyes daily. calcium Take 1 tablet 0 Active carbonate-vitamin D3 by mouth 2 ([id number]) 1,500 (two) times a mg - 400 units (600 mg day with elemental calcium per meals. tablet) per tablet valACYclovir (VALTREX) Take 1 tablet 90 tablet 3 08/07/19 Active 500 mg (500 mg) by 22 tabletIndications: mouth daily. Multiple myeloma potassium chloride Take 1 tablet 3 tablet 0 01/29/20 Active (Klor-Con M20) 20 mEq (20 mEq) by 22 tabletIndications: mouth daily. Multiple myeloma Take with food valACYclovir (VALTREX) Take 1 tablet 90 tablet 3 08/22/19 Discontinued 500 mg (500 mg) by 022 (Reorder ) tabletIndications: mouth daily. Multiple myeloma LORazepam (Ativan) 1 mg Take 1 tablet 1 tablet 0 08/03/19 tabletIndications: (1 mg) by 022 Multiple myeloma mouth once for 1 dose. Take Ativan 1 mg by mouth 15 minutes prior to MRI imaging. LORazepam (Ativan) 1 mg Take 1 tablet 1 tablet 0 01/30/20 tabletIndications: (1 mg) by 022 Multiple myeloma mouth once for 1 dose. 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 Small bowel obstruction 03/10/2018 Diarrhea 03/06/2018 Mucositis 03/06/2018 Stented coronary artery 02/22/2018 Multiple myeloma 10/17/2017 Cancer Staging: Clinical: Stage II - Sig alma by DAVONTE Judge on 10/17/2017 Encounters Date Type Specialty Care Team Description 01/28/2022 Office Visit Lymphoma and Con Kwan MD Multiple my eloma Myeloma (Primary Dx) 01/28/2022 Travel 01/26/2022 Hospital Encounter Lab Fouzia Das myeloma L, ROD CUP FILLER 01/26/2022 Hospital Encounter Lab Fouzia Das myeloma L, ROD CUP FILLER 08/06/2021 Office Visit Lymphoma and Con Kwan MD Multiple my eloma Myeloma (Primary Dx) 08/06/2021 Travel 08/05/2021 Ancillary Radiology Fouzia Das Multiple myeloma Procedure L, ROD CUP FILLER 08/05/2021 Travel 08/03/2021 Hospital Encounter Lab Fouzia Das Mul tiple myeloma L, ROD CUP FILLER 08/02/2021 Orders Only Lymphoma and Fouzia Das Multiple myeloma Myeloma L, ROD CUP FILLER (Primary Dx) 08/02/2021 Refill Lymphoma and Fouzia Das Multiple myeloma Myeloma L, ROD CUP FILLER after 04/18/2021 Immunizations Name Administration Dates Next Due Pfizer SARS-CoV-2 Vaccination (Purple 11/27/2020, , 05/07/2020 Cap) DTaP / IPV 03/01/2019, 12/06/2018, 09/04/2018 Hepatitis B 03/01/2019, 12/06/2018, 09/04/2018 Hib (PRP-OMP) 03/01/2019, 12/06/2018, 09/04/2018 Pneumococcal Conjugate 13-Valent 03/01/2019, 12/06/2018, Surgical History Surgery Date Site/Laterality Comments COLONOSCOPY 2 years UPPER GASTROINTESTINAL ENDOSCOPY Last year CORONARY STENT PLACEMENT 06/08/2016 - 07/08/2016 Medical History Medical History Date Comments Hypertension 10 years Currently on medicat ion Myocardial infarction 10 years History of placement of stent for 06/2016 coronary artery disease Hyperlipidemia 10 years Currently on medicat ion Personal history of meningitis 12/19/14 Polyp Urinary tract infection Often/ last was 09/08/17 Urinary incontinence Menopause Anemia Multiple myeloma 10/17/2017 Transient cerebral ischemia 06/2016 Mild Family History Medical History Relation Name Comments -Gastrointestinal (Esophagus, Liver, Bile Duct, Father Primitivo Castilloos Stomach, Pancreas, Colon, Rectum, Anus Coronary heart disease (CHD) Mother Debo Trejo Diabetes Mother Debo Trejo Hypertension Mother Debo Trejo Stroke Mother Debo Trejo Relation Name Status Comments Father Primitivo Castilloos Mother Debo Trejo Social History Tobacco Use Types Packs/Day Years Used Date Smoking Tobacco: Former Cigarettes 1 30 05/0 07/1968 - 12/19/2014 Smokeless Tobacco: Never Alcohol Use Standard Drinks/Week Comments No 0 (1 standard drink = 0.6 oz pure alcoho l) Sex Assigned at Date Recorded Not on file Obstetrics History Last Filed Vital Signs Vital Sign Reading Time Taken Comments Blood Pressure 123/52 01/28/2022 10:01 AM CDT Pulse 95 01/28/2022 10:01 AM CDT Temperature 36.8 C (98.2 F) 01/28/2022 10:01 AM CDT Respiratory Rate 12 01/28/2022 10:01 AM CDT Oxygen Saturation 97% 01/28/2022 10:01 AM CDT Inhaled Oxygen Concentration - - Weight 61.9 kg (136 lb 7.4 oz) 01/28/2022 10:01 AM CDT Height - - Body Mass Index 25.93 05/29/2018 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 Plan of Treatment Date Type Specialty Care Team Description 08/09/2022 Appointment Lab Fouzia Das APN [address] [place], [place] [address] (Wo rk) 08/09/2022 Appointment Lab Fouzia Das APN [address] [place], [place] [address] (Wo rk) 08/09/2022 Ancillary Procedure Radiology Fouzia Das APN [address] [place], [place] [address] (Wo rk) 08/12/2022 Follow-Up Lymphoma and Myeloma Con Kwan MD [address] [place], [place] [address] (Wo rk) Health Maintenance Due Date Last Done Comments COVID-19 Vaccination (4 - Booster 01/22/2021 11/27/2020, , for Pfizer series) 05/07/2020 Medical Devices Implanted Type Area Transmissions Systems Operator Device Identifier Shelf Exp iration Model / Date Serial / L ot Stent-06/08/2016 Stent Implanted: 06/08/2016 (Quantity not on file) Description: heart stent after a heart a ttack Procedures Procedure Name Priority Date/Time Associated Comments Diagnosis .DR. KERI HYATT PATH Routine 01/26/2022 9:30 Resul ts for this REVIEW AM CDT procedure are i n the results section. .DR. SAAVEDRA PROT ELEC Routine 01/26/2022 9:30 Resu lts for this PATH REVIEW AM CDT procedure are i n the results section. FREE KAPPA/FREE LAMBDA Routine 01/26/2022 9:30 Re sults for this RATIO AM CDT procedure are i n the results section. FRACTIONATED BILIRUBIN Routine 01/26/2022 9:30 Multiple myelom a Results for this AM CDT procedure are i n the results section. TOTAL PROTEIN Routine 01/26/2022 9:30 Multiple myeloma Results for this AM CDT procedure are i n the results section. ASPARTATE Routine 01/26/2022 9:30 Multiple myeloma Results for this AMINOTRANSFERASE AM CDT procedure a re in the results section. ALANINE AMINOTRANSFERASE Routine 01/26/2022 9:30 Multiple myel nolberto Results for this AM CDT procedure are i n the results section. ALKALINE PHOSPHATASE Routine 01/26/2022 9:30 Multiple myeloma Results for this AM CDT procedure are i n the results section. ALBUMIN LEVEL Routine 01/26/2022 9:30 Multiple myeloma Results for this AM CDT procedure are i n the results section. CALCIUM LEVEL TOTAL Routine 01/26/2022 9:30 Multiple myeloma R esults for this AM CDT procedure are i n the results section. .GLOMERULAR FILTRATION Routine 01/26/2022 9:30 Multiple myelom a Results for this RATE AM CDT procedure are i n the results section. SERUM CREATININE Routine 01/26/2022 9:30 Multiple myeloma Resu lts for this AM CDT procedure are i n the results section. ELECTROLYTE PANEL Routine 01/26/2022 9:30 Multiple myeloma Res ults for this AM CDT procedure are i n the results section. BLOOD UREA NITROGEN Routine 01/26/2022 9:30 Multiple myeloma R esults for this AM CDT procedure are i n the results section. GLUCOSE LEVEL Routine 01/26/2022 9:30 Multiple myeloma Results for this AM CDT procedure are i n the results section. MANUAL DIFFERENTIAL Routine 01/26/2022 9:30 Multiple myeloma R esults for this AM CDT procedure are i n the results section. Results CBC Routine 01/26/2022 9:30 Multiple myeloma Results for this AM CDT procedure are i n the results section. LACTATE DEHYDROGENASE Routine 01/26/2022 9:30 Multiple myeloma Results for this AM CDT procedure are i n the results section. BETA 2 MICROGLOBULIN Routine 01/26/2022 9:30 Multiple myeloma Results for this AM CDT procedure are i n the results section. IMMUNOFIXATION Routine 01/26/2022 9:30 Multiple myeloma Result s for this ELECTROPHORESIS AM CDT procedure ar e in the results section. PROTEIN ELECTROPHORESIS, Routine 01/26/2022 9:30 Multiple myel nolberto Results for this SERUM AM CDT procedure are i n the results section. FREE LAMBDA LIGHT CHAIN Routine 01/26/2022 9:30 Multiple myelo ma Results for this AM CDT procedure are i n the results section. FREE KAPPA LIGHT CHAIN Routine 01/26/2022 9:30 Multiple myelom a Results for this AM CDT procedure are i n the results section. IMMUNOGLOBULIN M SERUM Routine 01/26/2022 9:30 Multiple myelom a Results for this AM CDT procedure are i n the results section. IMMUNOGLOBULIN G SERUM Routine 01/26/2022 9:30 Multiple myelom a Results for this AM CDT procedure are i n the results section. IMMUNOGLOBULIN A SERUM Routine 01/26/2022 9:30 Multiple myelom a Results for this AM CDT procedure are i n the results section. URIC ACID Routine 01/26/2022 9:30 Multiple myeloma Results for this AM CDT procedure are i n the results section. PHOSPHORUS LEVEL Routine 01/26/2022 9:30 Multiple myeloma Resu lts for this AM CDT procedure are i n the results section. MAGNESIUM LEVEL Routine 01/26/2022 9:30 Multiple myeloma Resul ts for this AM CDT procedure are i n the results section. COMPREHENSIVE METABOLIC Routine 01/26/2022 9:30 Multiple myelo ma PANEL AM CDT COMPLETE BLOOD COUNT W/ Routine 01/26/2022 9:30 Multiple myelo ma DIFFERENTIAL AM CDT .DR. SAAVEDRA UIFE PATH Routine 01/26/2022 6:30 Resu lts for this REVIEW AM CDT procedure are i n the results section. .DR. SAAVEDRA U PROT ELEC Routine 01/26/2022 6:30 Re sults for this PATH REVIEW AM CDT procedure are i n the results section. .TOTAL VOLUME Routine 01/26/2022 6:30 Results for this AM CDT procedure are i n the results section. URINE TOTAL PROTEIN Routine 01/26/2022 6:30 Resul ts for this AM CDT procedure are i n the results section. IMMUNOFIXATION Routine 01/26/2022 6:30 Multiple myeloma Result s for this ELECTROPHORESIS URINE AM CDT proced ure are in the results section. PROTEIN ELECTROPHORESIS Routine 01/26/2022 6:30 Multiple myelo ma Results for this URINE AM CDT procedure are i n the results section. MRI WHOLE BODY - BONE Routine 08/05/2021 8:04 Multiple myeloma Results for this MARROW PM CDT procedure are i n the results section. .DR. SAAVEDRA EDMAR PATH Routine 08/03/2021 10:34 Resu lts for this REVIEW AM CDT procedure are i n the results section. .DR. SAAVEDRA PROT ELEC Routine 08/03/2021 10:34 Res ults for this PATH REVIEW AM CDT procedure are i n the results section. FREE KAPPA/FREE LAMBDA Routine 08/03/2021 10:34 R esults for this RATIO AM CDT procedure are i n the results section. FRACTIONATED BILIRUBIN Routine 08/03/2021 10:34 Multiple myelo ma Results for this AM CDT procedure are i n the results section. TOTAL PROTEIN Routine 08/03/2021 10:34 Multiple myeloma Result s for this AM CDT procedure are i n the results section. ASPARTATE Routine 08/03/2021 10:34 Multiple myeloma Results for this AMINOTRANSFERASE AM CDT procedure a re in the results section. ALANINE AMINOTRANSFERASE Routine 08/03/2021 10:34 Multiple mye cassandra Results for this AM CDT procedure are i n the results section. ALKALINE PHOSPHATASE Routine 08/03/2021 10:34 Multiple myeloma Results for this AM CDT procedure are i n the results section. ALBUMIN LEVEL Routine 08/03/2021 10:34 Multiple myeloma Result s for this AM CDT procedure are i n the results section. CALCIUM LEVEL TOTAL Routine 08/03/2021 10:34 Multiple myeloma Results for this AM CDT procedure are i n the results section. .GLOMERULAR FILTRATION Routine 08/03/2021 10:34 Multiple myelo ma Results for this RATE AM CDT procedure are i n the results section. SERUM CREATININE Routine 08/03/2021 10:34 Multiple myeloma Res ults for this AM CDT procedure are i n the results section. ELECTROLYTE PANEL Routine 08/03/2021 10:34 Multiple myeloma Re sults for this AM CDT procedure are i n the results section. BLOOD UREA NITROGEN Routine 08/03/2021 10:34 Multiple myeloma Results for this AM CDT procedure are i n the results section. GLUCOSE LEVEL Routine 08/03/2021 10:34 Multiple myeloma Result s for this AM CDT procedure are i n the results section. MANUAL DIFFERENTIAL Routine 08/03/2021 10:34 Multiple myeloma Results for this AM CDT procedure are i n the results section. Results CBC Routine 08/03/2021 10:34 Multiple myeloma Results for this AM CDT procedure are i n the results section. LACTATE DEHYDROGENASE Routine 08/03/2021 10:34 Multiple myelom a Results for this AM CDT procedure are i n the results section. BETA 2 MICROGLOBULIN Routine 08/03/2021 10:34 Multiple myeloma Results for this AM CDT procedure are i n the results section. IMMUNOFIXATION Routine 08/03/2021 10:34 Multiple myeloma Resul ts for this ELECTROPHORESIS AM CDT procedure ar e in the results section. PROTEIN ELECTROPHORESIS, Routine 08/03/2021 10:34 Multiple mye cassandra Results for this SERUM AM CDT procedure are i n the results section. FREE LAMBDA LIGHT CHAIN Routine 08/03/2021 10:34 Multiple myel nolberto Results for this AM CDT procedure are i n the results section. FREE KAPPA LIGHT CHAIN Routine 08/03/2021 10:34 Multiple myelo ma Results for this AM CDT procedure are i n the results section. IMMUNOGLOBULIN M SERUM Routine 08/03/2021 10:34 Multiple myelo ma Results for this AM CDT procedure are i n the results section. IMMUNOGLOBULIN G SERUM Routine 08/03/2021 10:34 Multiple myelo ma Results for this AM CDT procedure are i n the results section. IMMUNOGLOBULIN A SERUM Routine 08/03/2021 10:34 Multiple myelo ma Results for this AM CDT procedure are i n the results section. URIC ACID Routine 08/03/2021 10:34 Multiple myeloma Results for this AM CDT procedure are i n the results section. PHOSPHORUS LEVEL Routine 08/03/2021 10:34 Multiple myeloma Res ults for this AM CDT procedure are i n the results section. MAGNESIUM LEVEL Routine 08/03/2021 10:34 Multiple myeloma Resu lts for this AM CDT procedure are i n the results section. COMPREHENSIVE METABOLIC Routine 08/03/2021 10:34 Multiple myel nolberto PANEL AM CDT COMPLETE BLOOD COUNT W/ Routine 08/03/2021 10:34 Multiple myel nolberto DIFFERENTIAL AM CDT .DR. SAAVEDRA UIFE PATH Routine 08/03/2021 7:35 Resu lts for this REVIEW AM CDT procedure are i n the results section. .DR. SAAVEDRA U PROT ELEC Routine 08/03/2021 7:35 Re sults for this PATH REVIEW AM CDT procedure are i n the results section. .TOTAL VOLUME Routine 08/03/2021 7:35 Results for this AM CDT procedure are i n the results section. URINE TOTAL PROTEIN Routine 08/03/2021 7:35 Resul ts for this AM CDT procedure are i n the results section. IMMUNOFIXATION Routine 08/03/2021 7:35 Multiple myeloma Result s for this ELECTROPHORESIS URINE AM CDT proced ure are in the results section. PROTEIN ELECTROPHORESIS Routine 08/03/2021 7:35 Multiple myelo ma Results for this URINE AM CDT procedure are i n the results section. after 04/18/2021 Results (ABNORMAL) .Serum Creatinine (01/26/2022 9:30 AM CDT)Only the most recent of2 resultswithin the time period is included. athologist Signature Creatinine 1.15 (H) 0.51 - [facility] 0.95 mg/dL [facility] Specimen Anatomical Collection Method Collection Time Receive d Time (Source) Location / / Volume Laterality Blood 01/26/2022 9:30 AM 9:44 CDT AM CDT Fouzia Das APN LAB BLOOD ORDERABLES Performing Organization Address City/State/ZIP Code Phon e Number [facility] Unless otherwise noted, [place], [place] [address] CENTER all lab tests performed by: Division of Pathology and Laboratory Medicine [address] (ABNORMAL) .CBC (01/26/2022 9:30 AM CDT)Only the most recent of2 resultswithin the time period is included. Analysis Performed At Patho logist Time Signature WBC 4.2 4.0 - 11.0 [facility] K/uL DIAGNOSTIC CENTER RBC 3.02 (L) 4.00 - [facility] 5.50 M/uL DIAGNOSTIC CENTER Hgb 10.5 (L) 12.0 - [facility] 16.0 gm/dL DIAGNOSTIC CENTER Hct 30.2 (L) 37.0 - [facility] 47.0 % DIAGNOSTIC CENTER MCV 100 (H) 82 - 98 fL [facility] DI[facility]STIC CENTER MCH 34.8 (H) 27.0 - [facility] 31.0 pg DIAGNOSTIC CENTER MCHC 34.8 31.0 - [facility] 36.0 gm/dL DIAGNOSTIC CENTER RDW-SD 64.1 (H) 35.1 - [facility] 46.3 fL DIAGNOSTIC CENTER RDW-CV 17.4 (H) 12.0 - [facility] 15.5 % DIAG[facility]STIC CENTER Platelet count 148 140 - 440 [facility] K/uL DI[facility]IC CENTER MPV 12.9 (H) 4.0 - 10.4 [facility] fL DIAGNOSTIC CENTER INRBC 0.0 <=0.0 % [facility] Comment: The INRBC (instrument NRBC) value reflec ts the enumeration of nucleated red blood cells contained i n a 200uL sample of whole blood analyzed by the instrumen t. This value may differ from the NRBC value reported in a manual differential, which is based on a 100 cell differentia l. Specimen Anatomical Collection Method Collection Time Receive d Time (Source) Location / / Volume Laterality Blood 01/26/2022 9:30 AM 9:37 CDT AM CDT Fouzia Das APN LAB BLOOD ORDERABLES Performing Organization Address City/State/ZIP Code Phon e Number [facility] DIAGNOSTIC Unless otherwise noted, [place], [place] [address] CENTER all lab tests performed by: Division of Pathology and Laboratory Medicine [address] [place] [address] Protein Electrophoresis Path Review (01/26/2022 9:30 AM CDT)Only the most recent of2 resultswithin the time period is included. Component Value Ref Test Analysis Performed At Patholo gist Range Method Time Signature SPE Path The follow-up [facility] Interp serum protein INGA electrophoretic CANCER pattern does not CENTER show definitive evidence of an M-protein peak. Comment: MD Gary [id number] Dictated by: MD Gary LINCOLN Dictated Date/Time: 02.04.2022 11:47 AM CDT Transcribed Date/Time: 02.04.2022 11:47 AM CDT Electronically Signed By: MD Gary LINCOLN on 02.04.2022 11:47 AM Specimen Anatomical Collection Method Collection Time Receive d Time (Source) Location / / Volume Laterality Blood 01/26/2022 9:30 AM 2 1:41 CDT PM CDT Fouzia Das APN LAB BLOOD ORDERABLES Performing Organization Address City/State/ZIP Code Phon e Number [facility] CANCER Unless otherwise noted, [address] all lab tests performed by: Division of Pathology and Laboratory Medicine [facility] EDMAR Path Review (01/26/2022 9:30 AM CDT)Only the most recent of2 resultswithin the time period is included. Component Value Ref Test Analysis Performed At [facility] gist Range Method Time Signature EDMAR Path Int The follow-up serum protein immunofixation electrophoretic patterns obtained with the use of antisera against IgG, IgA, IgM, bound kappa and bound lambda light chains are suggestive of an oligoclonal ga NE mmopathy. Follow-up serum protein electrophoretic INGA studies and correlation with the clinical findings, navneet dunn, are suggested. CANCER CENTER Comment: MD Gary LINCOLN [id number] Dictated by: MD Gary LINCOLN Dictated Date/Time: 02.04.2022 11:47 AM CDT Transcribed Date/Time: 02.04.2022 11:47 AM CDT Electronically Signed By: JOANA SAAVEDRA MD - [id number] on 02.04.2022 11:47 AM Specimen Anatomical Collection Method Collection Time Receive d Time (Source) Location / / Volume Laterality Blood 01/26/2022 9:30 AM 2 1:41 CDT PM CDT Fouzia Dsa APN LAB BLOOD ORDERABLES Performing Organization Address City/State/ZIP Code Phon e Number [facility] CANCER Unless otherwise noted, [address] all lab tests performed by: Division of Pathology and Laboratory Medicine [address] [place] [address] Free Norton/Free Lambda Ratio (01/26/2022 9:30 AM CDT)Only the most recent of2 resultswithin the time period is included. athologist [facility] FKap/FLam RT 1.43 0.26 - 1.65 [facility] Specimen Anatomical Collection Method Collection Time Receive d Time (Source) Location / / Volume Laterality Blood 01/26/2022 9:30 AM 2 CDT 10:09 AM CDT Fouzia Das APN LAB BLOOD ORDERABLES Performing Organization Address City/[facility] Phon e Number [facility] CANCER Unless otherwise noted, [address] all lab tests performed by: Division of Pathology and Laboratory Medicine [address] [place] [address] (ABNORMAL) Glomerular Filtration Rate (01/26/2022 9:30 AM CDT)Only the most recent of2 resultswithin the time period is included. athologist [facility] eGFR 50 (L) >=60 [facility] mL/min/1.73 DIAGNOSTIC sq. m CENTER Comment: The eGFRcr is calculated with the 2020 KD-EPI creatinine equation using creatinine, patient's age, and sex for adults 18 years of age and older. Other factors, especially muscle mass, may affect accuracy and need to be considered. According to the Kidney Disease: Improvi ng Global Outcomes (KDIGO) CKD Work Group 2012 Clinical Practice Guideline, chronic kidney disease (CKD) is defined as the abnormalities of kidney structure or function, present for more than 3 months, with implications for health. CKD should be c lassified by cause, GFR category, and albuminuria category. KDIGO guidelines provide the following GFR categories Stage Description GFR mL/min/1.73 m2 G1* Normal or high >= 90 G2* Mildly decreased 60-89 G3a Mildly to moderately decreased 45-59 G3b Moderately to severely decreased 30- 44 G4 Severely decreased 15-29 G5 Kidney failure <15 *In the absence of evidence of kidney da mage, neither G1 nor G2 fulfill criteria for CKD. Specimen Anatomical Collection Method Collection Time Receive d Time (Source) Location / / Volume Laterality Blood 01/26/2022 9:30 AM 9:44 CDT AM CDT Fuozia Das APN LAB BLOOD ORDERABLES Performing Organization Address City/[facility] Phon e Number [facility] DIAGNOSTIC Unless otherwise noted, [address] all lab tests performed by: Division of Pathology and Laboratory Medicine [employer] [place] Fractionated Bilirubin (01/26/2022 9:30 AM CDT)Only the most recent of2 results within the time period is included. athologist Signature Bili Total 0.7 <=1.2 mg/dL [facility] DIAG[facility]STIC CENTER Comment: Indocyanine Green (ICG) may cause falsel y elevated bilirubin results. Total and direct bilirubin must not be measured from samples containing indocyanine green. False elevation of total bilirubin can b e seen in patients with IgG concentrations above 28 g/L. Bili Direct 0.2 <=0.3 mg/dL [facility] D IAGNOSTIC CENTER Comment: Indocyanine Green (ICG) may cau se falsely elevated bilirubin results. Total and direct bilirubin must not be measure d from samples containing indocyanine green. Bili Indirect 0.5 0.0 - 0.9 mg/dL [place] [facility] DIAGNOSTIC CENTER Specimen Anatomical Collection Method Collection Time Receive d Time (Source) Location / / Volume Laterality Blood 01/26/2022 9:30 AM 9:44 CDT AM CDT Fouzia Das APN LAB BLOOD ORDERABLES Performing Organization Address City/[facility]/ZIP [facility] Phon e Number [facility] DIAGNOSTIC Unless otherwise noted, [place] [phone] [facility] all lab tests performed by: Division of Pathology and Laboratory Medicine [employer] [place] (ABNORMAL) Free Lambda Light Chain (01/26/2022 9:30 AM CDT)Only the most recent of2 resultswithin the time period is included. athologist [facility] Free Lambda 58.78 (H) 5.71 - [facility] 26.30 mg/L [facility] Specimen Anatomical Collection Method Collection Time Receive d Time (Source) Location / / Volume Laterality Blood 01/26/2022 9:30 AM 2 CDT 10:09 AM CDT Fouzia Das [facility] LAB BLOOD ORDERABLES Performing Organization Address City/[facility] Phon e Number [facility] CANCER Unless otherwise noted, [address] all lab tests performed by: Division of Pathology and Laboratory Medicine [address] [place] (ABNORMAL) Free Norton Light Chain (01/26/2022 9:30 AM CDT)Only the most recent of2 resultswithin the time period is included. athologist [facility] Free Norton 83.84 (H) 3.30 - [facility] 19.40 mg/L [facility] Specimen Anatomical Collection Method Collection Time Receive d Time (Source) Location / / Volume Laterality Blood 01/26/2022 9:30 AM 2 CDT 10:09 AM CDT [facility] LAB BLOOD ORDERABLES Performing Organization Address City/[facility] Phon e Number [facility] CANCER Unless otherwise noted, [address] all lab tests performed by: Division of Pathology and Laboratory Medicine [address] [place] (ABNORMAL) Differential (01/26/2022 9:30 AM CDT)Only the most recent of2 results within the time period is included. athologist [facility] Neutrophil % 46.0 42.0 - [facility] 66.0 % DIAGNOSTIC CENTER Lymphocyte % 31.4 24.0 - [facility] 44.0 % DIAGNOSTIC CENTER Monocyte % 15.1 (H) 2.0 - 7.0 [facility] % DIAGNOSTIC CENTER Eosinophil % 6.1 (H) 1.0 - 4.0 [facility] % DIAGNOSTIC CENTER Basophil % 0.7 0.0 - 1.0 [facility] % DIAGNOSTIC CENTER IGRE % 0.7 (H) 0.0 - 0.[address] [facility] INGA % DIAGNOSTIC CENTER Comment: IGRE % count includes Metamyelo cytes, Myelocytes, and Promyelocytes. Neutrophil Abs 1.94 1.70 - 7.30 K/uL [facility] Lymphocyte Abs 1.33 1.00 - 4.80 K/uL [facility] Monocyte Abs 0.64 0.08 - 0.70 K/uL [facility] DIAGNOSTIC CENTER Eosinophil Abs 0.26 0.04 - 0.40 K/uL [facility] Basophil Abs 0.03 0.00 - 0.10 K/uL NE [facility] DIAGNOSTIC CENTER IG Abs 0.03 0.00 - 0.04 K/uL [facility] Specimen Anatomical Collection Method Collection Time Receive d Time (Source) Location / / Volume Laterality Blood 01/26/2022 9:30 AM 2 9:37 CDT AM CDT Fouzia Das APN LAB BLOOD ORDERABLES Performing Organization Address City/State/[facility] Phon e Number [facility] DIAGNOSTIC Unless otherwise noted, [place], [place] [address] CENTER all lab tests performed by: Division of Pathology and Laboratory Medicine [facility] EDMAR (01/26/2022 9:30 AM CDT)Only the most recent of2 resultswithin the time period is included. [facility] EDMAR See Comment [facility] CANCER [facility] Specimen Anatomical Collection Method Collection Time Receive d Time (Source) Location / / Volume Laterality Blood 01/26/2022 9:30 AM 2 CDT 10:09 AM CDT Fouzia Das [employer] LAB BLOOD ORDERABLES Performing Organization Address City/State/ZIP [facility] Phon e Number [facility] CANCER Unless otherwise noted, [place] [address] CENTER all lab tests performed by: Division of Pathology and Laboratory Medicine [facility] Uric Acid (01/26/2022 9:30 AM CDT)Only the most recent of2 resultswithin the time period is included. athologist [facility] Uric Acid 4.9 2.4 - 5.7 [facility] mg/dL DIAGNOSTIC CENTER Specimen Anatomical Collection Method Collection Time Receive d Time (Source) Location / / Volume Laterality Blood 01/26/2022 9:30 AM 2 9:44 CDT AM CDT Fouzia L Das [employer] LAB BLOOD ORDERABLES Performing Organization Address City/[facility]/ZIP [facility] Phon e Number [facility] DIAGNOSTIC Unless otherwise noted, [address] all lab tests performed by: Division of Pathology and Laboratory Medicine [address] [place], [place] [id number] BUN (01/26/2022 9:30 AM CDT)Only the most recent of2 resultswithin the time period is included. athologist Signature BUN 21 6 - 23 [facility] mg/dL [facility] Specimen Anatomical Collection Method Collection Time Receive d Time (Source) Location / / Volume Laterality Blood 01/26/2022 9:30 AM 2 9:44 CDT AM CDT Fouzia L Das [employer] LAB BLOOD ORDERABLES Performing Organization Address City/[facility] Phon e Number [facility] DIAGNOSTIC Unless otherwise noted, [address] all lab tests performed by: Division of Pathology and Laboratory Medicine [address] [place], [place] [id number] ALT (01/26/2022 9:30 AM CDT)Only the most recent of2 resultswithin the time period is included. athologist Signature ALT 12 <=33 U/L [facility] Specimen Anatomical Collection Method Collection Time Receive d Time (Source) Location / / Volume Laterality Blood 01/26/2022 9:30 AM 2 9:44 CDT AM CDT Fouzia L Das [employer] LAB BLOOD ORDERABLES Performing Organization Address City/[facility] Phon e Number [facility] DIAGNOSTIC Unless otherwise noted, [address] all lab tests performed by: Division of Pathology and Laboratory Medicine [address] [place] [address] Aspartate Aminotransferase (01/26/2022 9:30 AM CDT)Only the most recent of2 resultswithin the time period is included. athologist Signature AST 13 <=32 U/L [facility] DIAGNOSTIC CENTER Specimen Anatomical Collection Method Collection Time Receive d Time (Source) Location / / Volume Laterality Blood 01/26/2022 9:30 AM 2 9:44 CDT AM CDT Fouzia Das APN LAB BLOOD ORDERABLES Performing Organization Address City/[facility]/ZIP Code Phon e Number [facility] DIAGNOSTIC Unless otherwise noted, [place], [place] [address] [facility] all lab tests performed by: Division of Pathology and Laboratory Medicine [address] [place] Serum Protein Electrophoresis (01/26/2022 9:30 AM CDT)Only the most recent of2 resultswithin the time period is included. athologist Signature TOT PROTEIN 6.6 6.4 - 8.3 [facility] gm/dL CAN[facility]ER CENTER Albumin 3.6 3.6 - 5.4 [facility] gm/ [facility] CENTER Alpha 1 0.4 0.2 - 0.4 [facility] Globulin gm/dL [facility] Alpha 2 1.0 0.5 - 1.0 [facility] Globulin gm/dL [facility] Beta Globulin 0.8 0.5 - 1.1 [facility]/dL [facility] CENTER Gamma Globulin 0.9 0.7 - 1.6 [facility]/ CANCER CENTER Paraprotein1 0.0 0.0 - 0.0 [facility]/ CANCER CENTER Specimen Anatomical Collection Method Collection Time Receive d Time (Source) Location / / Volume Laterality Blood 01/26/2022 9:30 AM 2 CDT 10:09 AM CDT Fouzia Das APN LAB BLOOD ORDERABLES Performing Organization Address City/State/ZIP Code Phon e Number [facility] CANCER Unless otherwise noted, [place] [address] [facility] all lab tests performed by: Division of Pathology and Laboratory Medicine [address] [place] Total Protein (01/26/2022 9:30 AM CDT)Only the most recent of2 resultswithin the time period is included. athologist Signature Total Protein 6.6 6.4 - 8.3 [facility] g/dL DIAGNOSTIC CENTER Specimen Anatomical Collection Method Collection Time Receive d Time (Source) Location / / Volume Laterality Blood 01/26/2022 9:30 AM 10/19/202 2 9:44 CDT AM CDT Fouzia Das [employer] LAB BLOOD ORDERABLES Performing Organization Address City/[facility] Phon e Number [facility] DIAGNOSTIC Unless otherwise noted, [address] all lab tests performed by: Division of Pathology and Laboratory Medicine [address] [place] (ABNORMAL) Phosphorus Level (01/26/2022 9:30 AM CDT)Only the most recent of2 resultswithin the time period is included. athologist Signature Phosphorus 2.4 (L) 2.5 - 4.5 [facility] mg/dL DI[facility] CENTER Specimen Anatomical Collection Method Collection Time Receive d Time (Source) Location / / Volume Laterality Blood 01/26/2022 9:30 AM 2 9:44 CDT AM CDT Fouzia Sollar [employer]ER LAB BLOOD ORDERABLES Performing Organization Address [facility] Phon e Number [facility] DIAGNOSTIC Unless otherwise noted, [address] all lab tests performed by: Division of Pathology and Laboratory Medicine [address] [place] Alkaline Phosphatase (01/26/2022 9:30 AM CDT)Only the most recent of2 results within the time period is included. athologist Signature Alk Phos 77 35 - 104 [facility] U/L [facility]ENTER Specimen Anatomical Collection Method Collection Time Receive d Time (Source) Location / / Volume Laterality Blood 01/26/2022 9:30 AM 2 9:44 CDT AM CDT Fouzia Sollar [employer] LAB BLOOD ORDERABLES Performing Organization Address City/[facility] Phon e Number [facility] DIAGNOSTIC Unless otherwise noted, [address] all lab tests performed by: Division of Pathology and Laboratory Medicine [address] [place] Magnesium Level (01/26/2022 9:30 AM CDT)Only the most recent of2 resultswithin the time period is included. athologist Signature Magnesium 1.7 1.6 - 2.6 [facility] mg/dL DI[facility]IC CENTER Specimen Anatomical Collection Method Collection Time Receive d Time (Source) Location / / Volume Laterality Blood 01/26/2022 9:30 AM 9:44 CDT AM CDT Fouzia Das APN LAB BLOOD ORDERABLES Performing Organization Address City/[facility]/ZIP Code Phon e Number [facility] DIAGNOSTIC Unless otherwise noted, [place] [phone] [facility] all lab tests performed by: Division of Pathology and Laboratory Medicine [address] [place] (ABNORMAL) LDH (01/26/2022 9:30 AM CDT)Only the most recent of2 resultswithin the time period is included. athologist Signature LDH 125 (L) 135 - 214 [facility] U/L DI[facility] CENTER Comment: Results greater than 1651 U/L m ay not be reliable due to matrix effect with extended dilution as it exceeds the manu facturer's recommended limit. Caution should be exercised when interpreting such valu es and done in conjunction with clinical context. Specimen Anatomical Collection Method Collection Time Receive d Time (Source) Location / / Volume Laterality Blood 01/26/2022 9:30 AM 9:44 CDT AM CDT Fouzia Das APN LAB BLOOD ORDERABLES Performing Organization Address City/[facility] Phon e Number [facility] DIAGNOSTIC Unless otherwise noted, [place] [phone] [facility] all lab tests performed by: Division of Pathology and Laboratory Medicine [address] [place] (ABNORMAL) Glucose Level (01/26/2022 9:30 AM CDT)Only the most recent of2 resultswithin the time period is included. P athologist Signature Glucose Level 110 (H) 70 - 99 [facility] mg/dL DIAG[facility]STIC CENTER Comment: Effective 11/04/15, the glucose reference intervals have been updated based on [employer] Diabetes [employer] guidelines (Standards of Medical Care in Diabetes 2016. Diabetes Care 2016; 39: S13-S22). Fasting blood glucose: Normal: 70-99 mg/dL Impaired fasting glucose (increased risk for diabetes or pre-diabetes): 100- 125 mg/dL Diabetes mellitus: >/=126 mg/dL Random blood glucose: Normal: 70-199 mg/dL Note: Random glucose >100 mg/dL is assoc iated with increased risk for diabetes Specimen Anatomical Collection Method Collection Time Receive d Time (Source) Location / / Volume Laterality Blood 01/26/2022 9:30 AM 2 9:44 CDT AM CDT Fouzia Reynolds Das [employer] FILLER LAB BLOOD ORDERABLES Performing Organization Address City/State/ZIP Code Phon e Number [facility] DIAGNOSTIC Unless otherwise noted, [place], [place] [address] [facility] all lab tests performed by: Division of Pathology and Laboratory Medicine [address] [place] IgA (01/26/2022 9:30 AM CDT)Only the most recent of2 resultswithin the time period is included. athologist Signature IgA 233 85 - 499 [facility] mg/dL [facility] Specimen Anatomical Collection Method Collection Time Receive d Time (Source) Location / / Volume Laterality Blood 01/26/2022 9:30 AM 2 CDT 10:09 AM CDT Fouzia Rodolfo Das [employer]ER LAB BLOOD ORDERABLES Performing Organization Address City/[facility]/ZIP Code Phon e Number [facility] CANCER Unless otherwise noted, [place] [address] [facility] all lab tests performed by: Division of Pathology and Laboratory Medicine [address] [place] (ABNORMAL) IgM (01/26/2022 9:30 AM CDT)Only the most recent of2 resultswithin the time period is included. athologist Signature IgM 23 (L) 35 - 242 [facility] mg/dL [facility] CENTER Specimen Anatomical Collection Method Collection Time Receive d Time (Source) Location / / Volume Laterality Blood 01/26/2022 9:30 AM 2 CDT 10:09 AM CDT Fouzia Rodolfo Das [employer] LAB BLOOD ORDERABLES Performing Organization Address City/[facility]/ZIP Code Phon e Number [facility] CANCER Unless otherwise noted, [place] [phone] [facility] all lab tests performed by: Division of Pathology and Laboratory Medicine [address] [place] IgG (01/26/2022 9:30 AM CDT)Only the most recent of2 resultswithin the time period is included. athologist Signature IgG 938 610 - 1,616 [facility] mg/dL CAN[facility]ER CENTER Specimen Anatomical Collection Method Collection Time Receive d Time (Source) Location / / Volume Laterality Blood 01/26/2022 9:30 AM 2 CDT 10:09 AM CDT Fouzia Reynolds Pippa ARGUELLO LAB BLOOD ORDERABLES Performing Organization Address City/[facility]/ZIP Code Phon e Number [facility] CANCER Unless otherwise noted, [place] [phone] [facility] all lab tests performed by: Division of Pathology and Laboratory Medicine [address] [place] [address] Calcium Level (01/26/2022 9:30 AM CDT)Only the most recent of2 resultswithin the time period is included. athologist Signature Calcium Lvl 9.0 8.4 - 10.2 [facility] mg/dL DI[facility]IC CENTER Specimen Anatomical Collection Method Collection Time Receive d Time (Source) Location / / Volume Laterality Blood 01/26/2022 9:30 AM 2 9:44 CDT AM CDT Fouziarosalinda Das [employer]ER LAB BLOOD ORDERABLES Performing Organization Address [facility] Phon e Number [facility] DIAGNOSTIC Unless otherwise noted, [place], [place] [address] [facility] all lab tests performed by: Division of Pathology and Laboratory Medicine [address] [place] [address] (ABNORMAL) Beta 2 Microglobulin (01/26/2022 9:30 AM CDT)Only the most recent of2 resultswithin the time period is included. athologist Signature Beta2 3.7 (H) 0.8 - 2.3 [facility] Microglob mg/L [facility] CENTER Comment: This test is measured by turbid imetric methodology on the [facility] Optilite analyzer. Results obtained from different methods are not interchangeable. Specimen Anatomical Collection Method Collection Time Receive d Time (Source) Location / / Volume Laterality Blood 01/26/2022 9:30 AM 2 CDT 10:09 AM CDT Fouziaroberto Das [employer] FILLER LAB BLOOD ORDERABLES Performing Organization Address City/[facility]/ZIP Code Phon e Number [facility] CANCER Unless otherwise noted, [place] [address] [facility] all lab tests performed by: Division of Pathology and Laboratory Medicine [address] [place] [address] Albumin Level (01/26/2022 9:30 AM CDT)Only the most recent of2 resultswithin the time period is included. athologist Signature Albumin Lvl 3.9 3.5 - 5.2 [facility] gm/dL DIAGNOSTIC CENTER Specimen Anatomical Collection Method Collection Time Receive d Time (Source) Location / / Volume Laterality Blood 01/26/2022 9:30 AM 9:44 CDT AM CDT [facility] LAB BLOOD ORDERABLES Performing Organization Address City/[facility] Phon e Number [facility] DIAGNOSTIC Unless otherwise noted, [address] all lab tests performed by: Division of Pathology and Laboratory Medicine [address] [place] [address] (ABNORMAL) Electrolyte Panel (01/26/2022 9:30 AM CDT)Only the most recent of2 resultswithin the time period is included. athologist Signature Sodium Lvl 136 136 - 145 [facility] mEq/L DI[facility]IC CENTER Potassium Lvl 3.2 (L) 3.5 - 5.1 [facility] mEq/L DI[facility]IC CENTER Chloride 97 (L) 98 - 107 [facility] mEq/L DI[facility]STIC CENTER CO2 30 (H) 22 - 29 [facility] mEq/L DI[facility] CENTER Anion Gap 9 4 - 14 [facility] mEq/L DI[facility] CENTER Specimen Anatomical Collection Method Collection Time Receive d Time (Source) Location / / Volume Laterality Blood 01/26/2022 9:30 AM 9:44 CDT AM CDT [facility] Performing Organization Address City/[facility] Phon e Number [facility] DIAGNOSTIC Unless otherwise noted, [place] [phone] [facility] all lab tests performed by: Division of Pathology and Laboratory Medicine [address] [place] [address] Urine EDMAR Path Review (01/26/2022 6:30 AM CDT)Only the most recent of2 results within the time period is included. Component Value Ref Test Analysis Performed At [facility] Range Method Time Signature UIFE Path Int The follow-up urine protein immunofixation electrophoretic patterns obtained with the use of antisera against IgG, IgA, IgM, bound kappa and bound lambda light chains, free kappa and free lambda light c NE MD finneagn are suggestive of urinary light chain ladder INGA patterns (kappa and lambda). The presence of a Bence-Liang proteinuria, however, cannot be completely ruled out by this study. Correlation with the clinical findings is recommended. [facility] CENTER Comment: MD Gary [id number] Dictated by: MD Gary LINCOLN Dictated Date/Time: 02.04.2022 12:15 PM CDT Transcribed Date/Time: 02.04.2022 12:15 PM CDT Electronically Signed By: MD Gary LINCOLN on 02.04.2022 12:15 PM Specimen Anatomical Collection Method Collection Time Receive d Time (Source) Location / / Volume Laterality Urine 24 Hr 01/26/2022 6:30 AM 8:26 CDT AM CDT Fouzia Das APN URINE ORDERABLES Performing Organization Address City/State/ZIP Code Phon e Number NE MD XIONG CANCER Unless otherwise noted, [place] [address] CENTER all lab tests performed by: Division of Pathology and Laboratory Medicine [facility]5 [facility] Urine Prot Electrophoresis Path Review (01/26/2022 6:30 AM CDT)Only the most recent of2 resultswithin the time period is included. Component Value Ref Test Analysis Performed At [facility] gist Range Method Time Signature U ProE Path The follow-up NE Int urine protein INGA electrophoretic CANCER pattern does not CENTER show definitive evidence of a Bence-Liang protein peak. Comment: MD Gary LINCOLN [id number] Dictated by: MD Gary LINCOLN Dictated Date/Time: 02.04.2022 12:15 PM CDT Transcribed Date/Time: 02.04.2022 12:15 PM CDT Electronically Signed By: JOANA SAAVEDRA MD - [id number] on 02.04.2022 12:15 PM Specimen Anatomical Collection Method Collection Time Receive d Time (Source) Location / / Volume Laterality Urine 24 Hr 01/26/2022 6:30 AM 2 8:26 CDT AM CDT Fouziarosalinda Das APN URINE ORDERABLES Performing Organization Address City/[facility]/ZIP Code Phon e Number [facility] CANCER Unless otherwise noted, [address] all lab tests performed by: Division of Pathology and Laboratory Medicine [address] [place] [address] [place] (ABNORMAL) Total Volume (01/26/2022 6:30 AM CDT)Only the most recent of2 results within the time period is included. Analysis Performed At Patho logist Time Signature Total Volume 1,950 (H) 1,[address] - [facility] 1,500 [place] mL/[address] [facility] CENTER Hrs Collected 24 [facility] Start Date 01/25/2022 [facility] End Date 01/26/2022 [facility] U24 Comment [id number] [place] Specimen Anatomical Collection Method Collection Time Receive d Time (Source) Location / / Volume Laterality Urine 24 Hr 01/26/2022 6:30 AM 2 CDT 12:41 PM CDT Fouzia Das APN URINE ORDERABLES Performing Organization Address City/[facility]/ZIP Code Phon e Number [facility] CANCER Unless otherwise noted, [address] all lab tests performed by: Division of Pathology and Laboratory Medicine [address] [place] [address] 24hr Urine Total Protein (01/26/2022 6:30 AM CDT)Only the most recent of2 resultswithin the time period is included. P athologist Signature UTP 4 mg/dL [facility] Comment: Caution is advised when interpreting nicole ues greater than 555 mg/dL. Results requiring extended dilution beyo nd the radio station engineer's recommended limit may not dilute linearly due to pot ential matrix effect. Correlation with clinical context is rec ommended. UTP 24 78 <=149 mg/24hr [facility] Specimen Anatomical Collection Method Collection Time Receive d Time (Source) Location / / Volume Laterality Urine 24 Hr 01/26/2022 6:30 AM 2 1:27 CDT PM CDT Fouzia Sesayar ROD CUP FILLER URINE ORDERABLES Performing Organization Address City/[facility]/ZIP Code Phon e Number [facility] CANCER Unless otherwise noted, [address] all lab tests performed by: Division of Pathology and Laboratory Medicine [address] Protein Electrophoresis Urine (01/26/2022 6:30 AM CDT)Only the most recent of2 resultswithin the time period is included. athologist Signature U Albumin % 36.7 % [facility] U Globulin% 63.3 % [facility] Specimen Anatomical Collection Method Collection Time Receive d Time (Source) Location / / Volume Laterality Urine 24 Hr 01/26/2022 6:30 AM 2 1:50 CDT PM CDT Fouzia Sollar ROD CUP FILLER URINE ORDERABLES Performing Organization Address City/[facility]/ZIP Code Phon e Number [facility] Unless otherwise noted, [address] all lab tests performed by: Division of Pathology and Laboratory Medicine [facility] [place] [facility] EDMAR Urine (01/26/2022 6:30 AM CDT)Only the most recent of2 resultswithin the time period is included. athologist Signature UIFE See Comment [facility] Specimen Anatomical Collection Method Collection Time Receive d Time (Source) Location / / Volume Laterality Urine 24 Hr 01/26/2022 6:30 AM 2 1:50 CDT PM CDT Fouzia Sollar ROD CUP FILLER URINE ORDERABLES Performing Organization Address City/[facility]/ZIP [facility] Phon e Number [facility] Unless otherwise noted, [address] all lab tests performed by: Division of Pathology and Laboratory Medicine [facility] [place] MRI WB Bone Marrow (08/05/2021 8:04 PM CDT) Anatomical Region Laterality Modality Whole Body Magnetic Resonance Specimen (Source) Anatomical Collection Method Collection Time Re ceived Time Location / / Volume Laterality 08/06/2021 9:54 AM CDT Impressions 08/06/2021 10:22 AM CDT Stable treated right iliac plasmacytoma. No evidence to suggest active myelomatou s lesions or extramedullary disease. Narrative 08/06/2021 10:22 AM CDT FULL RESULT: Examination: MRI WHOLE BODY - BONE MARRO W, 08/05/2021 8:04 PM. Clinical History: A 70-year-old female p atient with multiple myeloma, status post autologous stem cell transplant in 2018 Indication: myeloma restaging Comparison: MRI 08/19/2020 Technique: Whole-body magnetic resonance imaging was performed without intravenous administration of contrast. Findings: Pattern of bone disease: Focal lesion(s) Number of focal lesions: 1 Examples of focal bone lesions: There is redemonstration of a 5 cm right iliac wing treated plasmacytoma with an ADC value of 2.8. Soft tissue masses associated with bone lesions: Absent Infiltration of the long bones: Absent Vertebral fractures: None Other fractures: None Posterior iliac crests: No potential for sampling error: posterior iliac marrow similar to marrow elsewhere. Extramedullary disease: Absent Other pertinent positive and negative fi ndings: None Procedure Note Melvin Jimenez MD - 08/06/2021F ormatting of this note might be different from the original. FULL RESULT: Examination: MRI WHOLE BODY - BONE MARRO W, 08/05/2021 8:04 PM. Clinical History: A 70-year-old female p atient with multiple myeloma, status post autologous stem cell transplant in 2018 Indication: myeloma restaging Comparison: MRI 08/19/2020 Technique: Whole-body magnetic resonance imaging was performed without intravenous administration of contrast. Findings: Pattern of bone disease: Focal lesion(s) Number of focal lesions: 1 Examples of focal bone lesions: There is redemonstration of a 5 cm right iliac wing treated plasmacytoma with an ADC value of 2.8. Soft tissue masses associated with bone lesions: Absent Infiltration of the long bones: Absent Vertebral fractures: None Other fractures: None Posterior iliac crests: No potential for sampling error: posterior iliac marrow similar to marrow elsewhere. Extramedullary disease: Absent Other pertinent positive and negative fi ndings: None IMPRESSION: Stable treated right iliac plasmacytoma. No evidence to suggest active myelomatou s lesions or extramedullary disease. Fouzia L Das ROD CUP FILLER IMG MRI ORDERABLES after 04/18/2021 Insurance Payer Benefit Plan / Subscriber ID Effective Phone Address T ype Group Dates [employer] WE[employer]ARE [id number] 2018-[address] Medicare MEDICARE MEDICARE [place], [place] ADVANTAGE ADVANTAGE [id number] Advance Directives Type Date Recorded Patient Broiler Supervisor Explanati on Advance Directives: 10/04/2017 Medical Richard r of Supply Chain Business Analyst Medical Power of Supply Chain Business Analyst Code Status Date Activated Date Inactivated Comments Full Code 02/20/2018 5:30 PM 03/17/2018 1:49 PM Care Teams Furnace Attendant Relationship Specialty Start Date End Date Davide Agudelo PCP - External Referring Internal Medicine 10/03/17 MD Vaishnavi [address] [place] [address] Con Kwan MD PCP - General Lymphoma and Myeloma 10/03/[address] [place] [id number] Daily Kingsley PCP - External Follow Up Hematology and 10/03/17 A Oncology Mitchell Ramírez PCP - External Primary Internal Medicine 8 MD Marty Care Provider [phone] (work)
--- OUTSIDE RECORDS SUMMARY | 2022-04-18 15:35 | XMS REPORT | Continuity of Care Document ---
:1950 Author Organization [facility] t Address [address] [place] [address] Care Team Providers Name Role Phone Asked, No Pcp Primary Care Physician Unavailable SYSTEM, PROVIDER NOT IN Attending Clinician Unavailable Vanessa Singh MD Attending Clinician VANESSA SINGH Attending Clinician Unavailable FOUZIA DAS Attending Clinician Unavailable Fouzia Das APN Attending Clinician CHANTAL CONN Attending Clinician Unavailable MD CHANTAL CONN Attending Clinician Unavail able CARL RANGEL Attending Clinician Unavailable Jakub-Mbayo_A_AH Attending Clinician Unavailable CHANTAL CONN Admitting Clinician Unavailable MD CHANTAL CONN Admitting Clinician Unavail able Jakub-Mbayo_A_AH Admitting Clinician Unavailable Payers Payer Name Policy Type Policy Number Effective Date Expiration Date Erin montero [facility] [id number] 2020 00:00:00 [facility] [id number] 2019 [employer] 00:00:00 (MEDICARE REPLACEMENT/ADVANT AGE - HMO) Problems Condition Condition Condition Status Onset Resolution Last Treating Co mments Source Name Details Category Date Date Treatment Clinician Date Carotid Carotid Disease Active 2021-0 Methodi stenosis, stenosis, 4-20 st right right 00:00: Hospita 00 l 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 [...] 00 e 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 00 MD Franck lizama [facility] Small Small Disease Active 2017-04 Univers bowel bowel 2- [place] [facility] Diarrhea Diarrhea Disease Active 2017-04 Unive rs 1-27 ity of 00:00: [place] 00 MD [facility] Mucositis Mucositis Disease Active 2017-04 Uni vers 1-27 ity of 00:00: [place] 00 MD Franck lizama [facility] Stented Stented Disease Active 2017-04 Univers coronary coronary 1-15 ity of artery artery 00:00: [place] 00 MD Franck lizama [facility] Multiple Multiple Disease Active Unive rs myeloma myeloma 7-10 ity of 00:00: [place] 00 MD [facility] Allergies, Adverse Reactions, Alerts Allergy Allergy Status Severity Reaction(s) Onset Inactive Treating Comm ents Source Name Type Date Date Clinician NO KNOWN Allergy Active [facility] Family History Family Member Diagnosis Comments Start Date Stop Date Source Natural father -[facility] [place] (Esophagus, Liver, MD And erson Cancer Bile Duct, Stomach, Cente r Pancreas, Colon, Rectum, Anus Natural mother [facility] Natural mother Diabetes [facility] mother Stroke [facility] Social History Social Habit Start Date Stop Date Quantity Comments Source History of tobacco Cigarette Smoker Confucianism use Hospital History SDOH [facility] Alcohol Comment Medical C enter History SDOH Confucianism Alcohol Binge Hospital History SDOH Confucianism Alcohol Std Drinks Hospit al Alcohol intake 2020-08-31 2020-08-31 Lifetime Confucianism 00:00:00 00:00:00 non-drinker Hospital (finding) Cigarettes smoked 2020-08-25 2020-08-[address] current (pack per 00:00:00 00:00:00 Hospita l day) - Reported History SDOH 2020-08-25 2020-08-25 1 Confucianism Alcohol Frequency 00:00:00 00:00:00 Hospita l Tobacco use and 2020-03-25 2020-03-[address] [facility] kes exposure 00:00:00 00:00:00 [facility] Cigarette 2017-10-03 2017-10-03 University of pack-years 00:00:00 00:00:00 [place] MD Pelayo [facility] Sex Ass[birth year] At [birth year] Confucianism 00:00:00 00:00:00 Hospital Smoking Status Start Date Stop Date Source Ex-smoker 2017-10-03 00:00:00 2017-10-03 00:00:00 [facility] [place] [facility] Medications Ordered Filled Start Stop Current Ordering Indication Dosage Frequency Signature Comments Components Source Medication Medication Date Date Medication? Clinician (SIG) Name Name LORazepam 2021-04- Multiple 1mg Take 1 U nivers (Ativan) 1 0- 10-23 myeloma tablet (1 ity of mg tablet 00:00: 04:59 mg) by [place] 00 :00 mouth once MD for 1 Anderso dose. 15 n minutes Cancer prior to Center MRI lenalidomid 2021-04 Yes multiple 10mg Take 10 mg Univers e 0-21 myeloma by mouth. ity of (REVLIMID) 10:28: For 21 [place] capsule 10 08 days then MD mg 7 days off [facility] losartan 50 2021-04 Yes 1{tbl} Take 1 Un heriberto mg tab 100 0-21 tablet by ity of mg, 10:28: mouth [place] hydroCHLORO 08 daily. thiazide 25 Anderso mg tab 25 n mg [facility] Center omeprazole 2021-04 Yes 40mg Take 40 mg U nivers (PriLOSEC) 0-21 by mouth ity o f 40 MG 10:28: every [place] capsule 08 morning MD before Anderso breakfast. [facility] bimatoprost 2021-04 Yes 1[drp] Administer Univers (LUMIGAN) 0-21 1 drop to ity o f 0.01% 10:26: both eyes [place] ophthalmic 16 at drops bedtime. [facility] cholecalcif 2021-04 Yes 400U Take 400 Un heriberto imer, 0-21 Units by ity of vitamin D3, 10:26: mouth [place] 400 units 16 twice MD tablet daily. [facility] calcium 2021-04 Yes 1{tbl} Take 1 Univer s carbonate-v 0-21 tablet by ity of itamin D3 10:26: mouth [place] 500 mg-10 16 twice MD mcg (400 daily. Anderso unit) tab n [facility] atorvastati 2021-04 Yes 80mg Take 80 mg Univers n (LIPITOR) 0-21 by mouth ity of 80 mg 10:26: daily. Dat tablet 16 [facility] aspirin 81 2021-04 Yes 81mg Take 81 mg U nivers mg EC 0-21 by mouth ity of tablet 10:26: daily. Dat 16 [facility] calcium 2021-04 Yes 1{tbl} Take 1 Univer s carbonate-v 0-21 tablet by ity of itamin D3 10:26: mouth 2 [place] ([id number] 16 (two) MD 0+D) 1,500 times a [place] o mg - 400 day with n units (600 meals. Cancer mg Center elemental calcium per tablet) per tablet potassium 2021-04 Yes Multiple 20meq Take 1 U nivers chloride 0-21 myeloma tablet (20 it y of (Klor-Con 00:00: mEq) by Dat M20) 20 mEq 00 mouth MD tablet daily. Anderso Take with n food [facility] calcium Yes 1{tbl} Take 1 Univer s carbonate-v 4-29 tablet by ity of itamin D3 10:42: mouth 2 [place] ([id number] 56 (two) MD 0+D) 1,500 times a [place] o mg - 400 day with n units (600 meals. Cancer mg Center elemental calcium per tablet) per tablet calcium Yes 1{tbl} Take 1 Univer s carbonate-v 4-29 tablet by ity of itamin D3 10:42: mouth 2 [place] ([id number] 56 (two) MD 0+D) 1,500 times a [place] o mg - 400 day with n units (600 meals. Cancer mg Center elemental calcium per tablet) per tablet calcium Yes 1{tbl} Take 1 Univer s carbonate-v 4-29 tablet by ity of itamin D3 10:42: mouth 2 [place] ([id number] 56 (two) MD 0+D) 1,500 times a [place] o mg - 400 day with n units (600 meals. Cancer mg Center elemental calcium per tablet) per tablet bimatoprost Yes 1[drp] Administer Univers (LUMIGAN) 4-29 1 drop to ity o f 0.01% 10:39: both eyes [place] ophthalmic 36 at MD drops bedtime. [facility] cholecalcif Yes 400U Take 400 Un heriberto imer, 4-29 Units by ity of vitamin D3, 10:39: mouth [place] 400 units 36 twice MD tablet daily. [facility] calcium Yes 1{tbl} Take 1 Univer s carbonate-v 4-29 tablet by ity of itamin D3 10:39: mouth [place] (CALCIUM 36 twice MD 500 WITH D) daily. [place] o 500 n mg(1,250mg) Cancer -400 unit Center tab atorvastati Yes 80mg Take 80 mg Univers n (LIPITOR) 4- by mouth ity of 80 mg 10:39: daily. [place] tablet 36 [facility] lenalidomid Yes multiple 10mg Take 10 mg Univers e 4-29 myeloma by mouth. ity of (REVLIMID) 10:39: For 21 [place] capsule 10 36 days then MD mg 7 days off [facility] losartan 50 Yes 1{tbl} Take 1 Un heriberto mg tab 100 -29 tablet by ity of mg, 10:39: mouth [place] hydroCHLORO 36 daily. thiazide 25 Anderso mg tab 25 n mg [facility] aspirin 81 Yes 81mg Take 81 mg U nivers mg EC -29 by mouth ity of tablet 10:39: daily. [place] 36 MD Anderso [facility] omeprazole Yes 40mg Take 40 mg U nivers (PriLOSEC) 4-29 by mouth ity o f 40 MG 10:39: every [place] capsule 36 morning MD before Anderso breakfast. [facility] bimatoprost Yes 1[drp] Administer Univers (LUMIGAN) 4- 1 drop to ity o f 0.01% 10:39: both eyes [place] ophthalmic 36 at [place] drops bedtime. [facility] cholecalcif Yes 400U Take 400 Un heriberto imer, 4-29 Units by ity of vitamin D3, 10:39: mouth [place] 400 units 36 twice MD tablet daily. [facility] calcium Yes 1{tbl} Take 1 Univer s carbonate-v - tablet by ity of itamin D3 10:39: mouth [place] (CALCIUM 36 twice MD 500 WITH D) daily. [place] o 500 n mg(1,250mg) Cancer -400 unit Center tab atorvastati Yes 80mg Take 80 mg Univers n (LIPITOR) 08-06 by mouth ity of 80 mg 10:39: daily. [place] tablet 36 [facility] lenalidomid Yes multiple 10mg Take 10 mg Univers e - myeloma by mouth. ity of (REVLIMID) 10:39: For 21 [place] capsule 10 36 days then MD mg 7 days off [facility] losartan 50 Yes 1{tbl} Take 1 Un heriberto mg tab 100 08-06 tablet by ity of mg, 10:39: mouth [place] hydroCHLORO 36 daily. thiazide 25 Anderso mg tab 25 n mg [facility] aspirin 81 Yes 81mg Take 81 mg U nivers mg EC 08-06 by mouth ity of tablet 10:39: daily. 36 [facility] omeprazole Yes 40mg Take 40 mg U nivers (PriLOSEC) -29 by mouth ity o f 40 MG 10:39: every [place] capsule 36 morning MD before Anderso breakfast. [facility] bimatoprost Yes 1[drp] Administer Univers (LUMIGAN) 4- 1 drop to ity o f 0.01% 10:39: both eyes [place] ophthalmic 36 at MD drops bedtime. [facility] cholecalcif Yes 400U Take 400 Un heriberto imer, 4-29 Units by ity of vitamin D3, 10:39: mouth [place] 400 units 36 twice MD tablet daily. [facility] calcium Yes 1{tbl} Take 1 Univer s carbonate-v 4-29 tablet by ity of itamin D3 10:39: mouth [place] (CALCIUM 36 twice MD 500 WITH D) daily. [place] o 500 n mg(1,250mg) Cancer -400 unit Center tab atorvastati Yes 80mg Take 80 mg Univers n (LIPITOR) 4-29 by mouth ity of 80 mg 10:39: daily. [place] tablet 36 [facility] lenalidomid Yes multiple 10mg Take 10 mg Univers e 4-29 myeloma by mouth. ity of (REVLIMID) 10:39: For 21 [place] capsule 10 36 days then MD mg 7 days off [facility] losartan 50 Yes 1{tbl} Take 1 Un heriberto mg tab 100 - tablet by ity of mg, 10:39: mouth [place] hydroCHLORO 36 daily. thiazide 25 Anderso mg tab 25 n mg [facility] aspirin 81 Yes 81mg Take 81 mg U nivers mg EC - by mouth ity of tablet 10:39: daily. [place] 36 [facility] omeprazole Yes 40mg Take 40 mg U nivers (PriLOSEC) - by mouth ity o f 40 MG 10:39: every [place] capsule 36 morning [facility] valACYclovi Yes Multiple 500mg Take 1 Univers r (VALTREX) 4-29 myeloma tablet ity of 500 mg 00:00: (500 mg) [place] tablet 00 by mouth daily. [facility] valACYclovi Yes Multiple 500mg Take 1 Univers r (VALTREX) 4-29 myeloma tablet ity of 500 mg 00:00: (500 mg) [place] tablet 00 by mouth daily. [facility] valACYclovi Yes Multiple 500mg Take 1 Univers r (VALTREX) 4-29 myeloma tablet ity of 500 mg 00:00: (500 mg) [place] tablet 00 by mouth MD daily. [facility] valACYclovi Yes Multiple 500mg Take 1 Univers r (VALTREX) 4-29 myeloma tablet ity of 500 mg 00:00: (500 mg) [place] tablet 00 by mouth MD daily. [facility] LORazepam Yes Univers (ATIVAN) 1 4-25 ity of mg tablet 00:00: [place] 00 [facility] LORazepam Yes Univers (ATIVAN) 1 4-25 ity of mg tablet 00:00: 00 [facility] LORazepam Yes Univers (ATIVAN) 1 4-25 ity of mg tablet 00:00: [place] 00 [facility] LORazepam Yes Univers (ATIVAN) 1 4-25 ity of mg tablet 00:00: [place] 00 [facility] LORazepam 2021- No Multiple 1mg Take 1 U nivers (Ativan) 1 08-02-26 myeloma tablet (1 ity of mg tablet 00:00: 04:59 mg) by [place] 00 :00 mouth once MD for 1 Anderso dose. Take n Ativan 1 Cancer mg by Center mouth 15 minutes prior to MRI imaging. LORazepam 2021- No Multiple 1mg Take 1 U nivers (Ativan) 1 08-02-26 myeloma tablet (1 ity of mg tablet 00:00: 04:59 mg) by [place] 00 :00 mouth once MD for 1 Anderso dose. Take n Ativan 1 Cancer mg by Center mouth 15 minutes prior to MRI imaging. LORazepam 2021- No Multiple 1mg Take 1 U nivers (Ativan) 1 08-02-26 myeloma tablet (1 ity of mg tablet 00:00: 04:59 mg) by [place] 00 :00 mouth once MD for 1 Anderso dose. Take n Ativan 1 Cancer mg by Center mouth 15 minutes prior to MRI imaging. LORazepam 2021- No Multiple 1mg Take 1 U nivers (Ativan) 1 08-02-26 myeloma tablet (1 ity of mg tablet 00:00: 04:59 mg) by [place] 00 :00 mouth once MD for 1 Anderso dose. Take n Ativan 1 Cancer mg by Center mouth 15 minutes prior to MRI imaging. latanoprost Yes 1[drp] Administer Univers (XALATAN) 3-11 1 drop to ity o f 0.005% 00:00: both eyes [place] ophthalmic 00 daily. MD roberts [facility] latanoprost Yes 1[drp] Administer Univers (XALATAN) 3-11 1 drop to ity o f 0.005% 00:00: both eyes [place] ophthalmic 00 daily. MD roberts [facility] latanoprost Yes 1[drp] Administer Univers (XALATAN) 3-11 1 drop to ity o f 0.005% 00:00: both eyes [place] ophthalmic 00 daily. MD roberts [facility] latanoprost Yes 1[drp] Administer Univers (XALATAN) 3-11 1 drop to ity o f 0.005% 00:00: both eyes [place] ophthalmic 00 daily. MD roberts [facility] lansoprazol Yes 30mg Take 30 mg Univers e 3-09 by mouth ity of (PREVACID) 00:00: daily. Dat 30 MG 00 capsule [facility] lansoprazol Yes 30mg Take 30 mg Univers e 3-09 by mouth ity of (PREVACID) 00:00: daily. Dat 30 MG capsule [facility] lansoprazol Yes 30mg Take 30 mg Univers e 3-09 by mouth ity of (PREVACID) 00:00: daily. Dat 30 MG 00 capsule [facility] lansoprazol Yes 30mg Take 30 mg Univers e 3-09 by mouth ity of (PREVACID) 00:00: daily. Dat 30 MG 00 capsule [facility] calcium Yes 2{tbl} QD Take 2 Method i carbonate-v 5-[address] itamin D3 14:26: mouth Hospita 500 54 daily. l mg(1,250mg) -400 unit tablet aspirin 0 Yes 81mg Q24H Take 81 mg Meth shen (ECOTRIN) 5-[address] 81 MG 14:26: daily. Hospita enteric 54 l coated tablet losartan-hy Yes 1{tbl} QD Take 1 Me thodi drochloroth 5-[address] iazide 14:26: mouth Hospita (Hyzaar) 54 every l 100-25 mg morning. per tablet valACYclovi Yes 500mg QD Take 500 M ethodi r (VALTREX) 5-[address] 500 MG 14:26: mouth Hospita tablet 54 every l morning. cholecalcif 0 Yes 1{tbl} QD Take 1 Me thodi imer, 5-[address] vitamin D3, 14:26: mouth Hospi ta (VITAMIN D3 54 daily. l ORAL) calcium 0 Yes 2{tbl} QD Take 2 Method i carbonate-v 5-[address] itamin D3 14:26: mouth Hospita 500 54 daily. l mg(1,250mg) -400 unit tablet aspirin 0 Yes 81mg Q24H Take 81 mg Meth shen (ECOTRIN) 5-[address] 81 MG 14:26: daily. Hospita enteric 54 l coated tablet losartan-hy Yes 1{tbl} QD Take 1 Me thodi drochloroth 5-[address] iazide 14:26: mouth Hospita (Hyzaar) 54 every l 100-25 mg morning. per tablet valACYclovi 0 Yes 500mg QD Take 500 M ethodi r (VALTREX) 5-[address] 500 MG 14:26: mouth Hospita tablet 54 every l morning. cholecalcif 0 Yes 1{tbl} QD Take 1 Me thodi imer, 5-[address] vitamin D3, 14:26: mouth Hospi ta (VITAMIN D3 54 daily. l ORAL) calcium 0 Yes 2{tbl} QD Take 2 Method i carbonate-v 5-[address] itamin D3 14:26: mouth Hospita 500 54 daily. l mg(1,250mg) -400 unit tablet aspirin 0 Yes 81mg Q24H Take 81 mg Meth shen (ECOTRIN) 5-[address] 81 MG 14:26: daily. Hospita enteric 54 l coated tablet losartan-hy Yes 1{tbl} QD Take 1 Me thodi drochloroth 5-[address] iazide 14:26: mouth Hospita (Hyzaar) 54 every l 100-25 mg morning. per tablet valACYclovi Yes 500mg QD Take 500 M ethodi r (VALTREX) 5-[address] 500 MG 14:26: mouth Hospita tablet 54 every l morning. cholecalcif Yes 1{tbl} QD Take 1 Me thodi imer, 5-[address] vitamin D3, 14:26: mouth Hospi ta (VITAMIN D3 54 daily. l ORAL) valACYclovi 2021- No Multiple 500mg Take 1 Univers r (VALTREX) -08-06 myeloma tablet it y of 500 mg 00:00: 00:00 (500 mg) [place] tablet 00 :00 by mouth MD daily. [facility] valACYclovi 2021- No Multiple 500mg Take 1 Univers r (VALTREX) -08-06 myeloma tablet it y of 500 mg 00:00: 00:00 (500 mg) [place] tablet 00 :00 by mouth MD daily. [facility] valACYclovi 2021- No Multiple 500mg Take 1 Univers r (VALTREX) -08-06 myeloma tablet it y of 500 mg 00:00: 00:00 (500 mg) [place] tablet 00 :00 by mouth MD daily. [facility] valACYclovi 2021- No Multiple 500mg Take 1 Univers r (VALTREX) 08-21 myeloma tablet it y of 500 mg 00:00: 00:00 (500 mg) [place] tablet 00 :00 by mouth MD daily. [facility] calcium Yes Q24H daily. [facility] carbonate-v 1-06 [facility] itamin D3 13:59: Medical (Calcium 39 Center 600 with Vitamin D3) 600 mg(1,500mg) -500 unit Cap cholecalcif Yes 400U Take [address] imer 1-06 Units by [facility]ukes (VITAMIN 13:59: mouth. Medical D3) 10 mcg 39 Center (400 unit) Tab tablet aspirin 202-0 Yes Q24H daily. [facility] (Aspir-81) 1-06 [facility] 81 MG EC 13:59: Medical tablet 39 Center bimatoprost [address] [facility] (Lumigan) 1-06 0.01 % eye Luke s 0.01 % Drop 13:59: drops 1 Med ical ophthalmic 39 drop to Center solution both eyes at night calcium 2020-0 Yes Q24H daily. [facility] carbonate-v 1-06 [facility] itamin D3 13:59: Medical (Calcium 39 Center 600 with Vitamin D3) 600 mg(1,500mg) -500 unit Cap cholecalcif 0 Yes 400U Take [address] imer 1-06 Units by [facility]ukes (VITAMIN 13:59: mouth. Medical D3) 10 mcg 39 Center (400 unit) Tab tablet aspirin 2020-0 Yes Q24H daily. [facility] (Aspir-81) 1-06 [facility] 81 MG EC 13:59: Medical tablet 39 Center bimatoprost Yes [facility] (Lumigan) 1-06 0.01 % eye Luke s 0.01 % Drop 13:59: drops 1 Med ical ophthalmic 39 drop to Center solution both eyes at night calcium 2020-0 Yes Q24H daily. [facility] carbonate-v 1-06 [facility] itamin D3 13:59: Medical (Calcium 39 Center 600 with Vitamin D3) 600 mg(1,500mg) -500 unit Cap cholecalcif 0 Yes 400U Take [address] imer 1-06 Units by [facility]ukes (VITAMIN 13:59: mouth. Medical D3) 10 mcg 39 Center (400 unit) Tab tablet aspirin 2020-0 Yes Q24H daily. [facility] (Aspir-81) 1-06 [facility] 81 MG EC 13:59: Medical tablet 39 Center bimatoprost [address] [facility] (Lumigan) 1-06 0.01 % eye Luke s 0.01 % Drop 13:59: drops 1 Med ical ophthalmic 39 drop to Center solution both eyes at night Revlimid 10 2019-[address] mg capsule 2-08 [facility] 00:00: Medical 00 Center Revlimid 10 2019-[address] mg capsule 2-08 [facility] 00:00: Medical 00 Center Revlimid 10 2019-[address] mg capsule 2-08 [facility] 00:00: Medical 00 [place] lenalidomid 2019-04 Yes 10mg QD Take 10 mg Methodi e 2-[address] (Revlimid) 00:00: nightly. Hos malia 10 mg 00 l capsule lenalidomid 2019-04 Yes 10mg QD Take 10 mg Methodi e 2-[address] (Revlimid) 00:00: nightly. Hos malia 10 mg 00 l capsule lenalidomid 2019-04 Yes 10mg QD Take 10 mg Methodi e 2-[address] (Revlimid) 00:00: nightly. Hos malia 10 mg 00 l capsule atorvastati 2019-04 Yes 80mg QD Take [address] n (LIPITOR) 0-03 by mouth Luke s 80 MG 00:00: daily. Medical tablet 00 [place] atorvastati 2019-04 Yes 80mg QD Take [address] n (LIPITOR) 0-03 by mouth Luke s 80 MG 00:00: daily. Medical tablet 00 [place] atorvastati 2019-04 Yes 80mg QD Take [address] n (LIPITOR) 0-03 by mouth Luke s 80 MG 00:00: daily. Medical tablet 00 [place] atorvastati 2019-04 Yes 80mg QD Take 80 mg Methodi n (LIPITOR) 0-[address] 80 MG 00:00: nightly. Hospita tablet 00 l atorvastati 2019-04 Yes 80mg QD Take 80 mg Methodi n (LIPITOR) 0-[address] 80 MG 00:00: nightly. Hospita tablet 00 l atorvastati 2019-04 Yes 80mg QD Take 80 mg Methodi n (LIPITOR) 0-[address] 80 MG 00:00: nightly. Hospita tablet 00 l Aspir-81 mg Aspir-81 mg No 1 Q1D Aspir-81 [facility] tablet,dayana tablet,dayana mg F amily yed release yed release tablet,del Practic Take 1 Take 1 ayed e tablet tablet release every day every day Take 1 by oral by oral tablet route. route. every day by oral route. atorvastati atorvasta No 1 Q1D atorvastat [facility] n 80 mg n 80 [...] oral route. route. route. Lumigan Lumigan No Lumigan [place] 0.01 % eye 0.01 % [...] route. route. by oral route. Immunizations Ordered Filled Immunization Date Status Comments [facility] e Immunization Name Name [facility] SARS-CoV-2 2020-11-27 Completed Univer sity of Vaccination (Purple 00:00:00 [facility]) [facility] SARS-CoV-2 2020-11-27 Completed Univer sity of Vaccination (Purple 00:00:00 [facility]) [facility] SARS-CoV-2 2020-11-27 Completed Univer sity of Vaccination (Purple 00:00:00 [facility]) Cancer [place] Pfizer SARS-CoV-2 2020-11-27 Completed Univer sity of Vaccination (Purple 00:00:00 [facility]) [facility] Pfizer SARS-CoV-2 2020-06-04 Completed Univer sity of Vaccination (Purple 00:00:00 [facility]) [facility] SARS-CoV-2 2020-06-04 Completed Univer sity of Vaccination (Purple 00:00:00 [facility]) Cancer [facility] SARS-CoV-2 2020-06-04 Completed Univer sity of Vaccination (Purple 00:00:00 [facility]) Cancer [facility] SARS-CoV-2 2020-06-04 Completed Univer sity of Vaccination (Purple 00:00:00 [facility]) Cancer [place] Pfizer SARS-CoV-2 2020-05-07 Completed Univer sity of Vaccination (Purple 00:00:00 [facility]) Cancer [place] Pfizer SARS-CoV-2 2020-05-07 Completed Univer sity of Vaccination (Purple 00:00:00 [facility]) Cancer [place] Pfizer SARS-CoV-2 2020-05-07 Completed Univer sity of Vaccination (Purple 00:00:00 [facility]) Cancer [place] Pfizer SARS-CoV-2 2020-05-07 Completed Univer sity of Vaccination (Purple 00:00:00 [facility]) [facility] DTaP / IPV 2019-03-01 Completed University of 00:00:[address] [place] [facility] Hib (PRP-OMP) 2019-03-01 Completed University of 00:00:00 [facility] Hepatitis B 2019-03-01 Completed University of 00:00:[address] [place] [facility] Pneumococcal 2019-03-01 Completed University o f Conjugate 13-Valent 00:00:00 [facility] DTaP / IPV 2019-03-01 Completed University of 00:00:[address] [place] [facility] Hib (PRP-OMP) 2019-03-01 Completed University of 00:00:[address] [place] [facility] Hepatitis B 2019-03-01 Completed University of 00:00:[address] [place] [facility] Pneumococcal 2019-03-01 Completed University o f Conjugate 13-Valent 00:00:00 [facility] DTaP / IPV 2019-03-01 Completed University of 00:00:[address] [place] [facility] Hib (PRP-OMP) 2019-03-01 Completed University of 00:00:[address] [place] [facility] Hepatitis B 2019-03-01 Completed University of 00:00:[address] [place] [facility] Pneumococcal 2019-03-01 Completed University o f Conjugate 13-Valent 00:00:00 [facility] DTaP / IPV 2019-03-01 Completed University of 00:00:00 [facility] Hib (PRP-OMP) 2019-03-01 Completed University of 00:00:[address] [place] [facility] Hepatitis B 2019-03-01 Completed University of 00:00:00 [facility] Pneumococcal 2019-03-01 Completed University o f Conjugate 13-Valent 00:00:00 [facility] influenza, influenza, 2019-01-08 Completed [facility] injectable, injectable, 00:00:00 Practice quadrivalent quadrivalent DTaP / IPV 2018-12-06 Completed University of 00:00:00 [facility] Hib (PRP-OMP) 2018-12-06 Completed University of 00:00:00 [facility] Hepatitis B 2018-12-06 Completed University of 00:00:00 [facility] Pneumococcal 2018-12-06 Completed University o f Conjugate 13-Valent 00:00:00 [facility] DTaP / IPV 2018-12-06 Completed University of 00:00:00 [facility] Hib (PRP-OMP) 2018-12-06 Completed [facility] 00:00:00 [facility] Hepatitis B 2018-12-06 Completed [facility] 00:00:00 [facility] Pneumococcal 2018-12-06 Completed University o f Conjugate 13-Valent 00:00:00 [facility] DTaP / IPV 2018-12-06 Completed [facility] 00:00:00 [facility] Hib (PRP-OMP) 2018-12-06 Completed [facility] 00:00:00 [facility] Hepatitis B 2018-12-06 Completed [facility] 00:00:00 [facility] Pneumococcal 2018-12-06 Completed University o f Conjugate 13-Valent 00:00:00 [facility] DTaP / IPV 2018-12-06 Completed [facility] 00:00:00 [facility] Hib (PRP-OMP) 2018-12-06 Completed [facility] 00:00:00 [facility] Hepatitis B 2018-12-06 Completed [facility] 00:00:00 [facility] Pneumococcal 2018-12-06 Completed University o f Conjugate 13-Valent 00:00:00 [facility] DTaP / IPV 2018-09-04 Completed [facility] 00:00:00 [facility] Hib (PRP-OMP) 2018-09-04 Completed [facility] 00:00:00 [facility] Hepatitis B 2018-09-04 Completed [facility] 00:00:[address] [place] [facility] Pneumococcal 2018-09-04 Completed University o f Conjugate 13-Valent 00:00:00 [facility] DTaP / IPV 2018-09-04 Completed [facility] 00:00:[address] [place] [facility] Hib (PRP-OMP) 2018-09-04 Completed [facility] 00:00:[address] [place] [facility] Hepatitis B 2018-09-04 Completed [facility] 00:00:[address] [place] [facility] Pneumococcal 2018-09-04 Completed University o f Conjugate 13-Valent 00:00:00 [facility] DTaP / IPV 2018-09-04 Completed [facility] 00:00:[address] [place] [facility] Hib (PRP-OMP) 2018-09-04 Completed [facility] 00:00:[address] [facility] Hepatitis B 2018-09-04 Completed [facility] 00:00:[address] [place] [facility] Pneumococcal 2018-09-04 Completed University o f Conjugate 13-Valent 00:00:00 [facility] DTaP / IPV 2018-09-04 Completed [facility] 00:00:00 [facility] Hib (PRP-OMP) 2018-09-04 Completed [facility] 00:00:[address] [place] [facility] Hepatitis B 2018-09-04 Completed [facility] 00:00:[address] [place] [facility] Pneumococcal 2018-09-04 Completed University o f Conjugate 13-Valent 00:00:00 [facility] Vital Signs Vital Name Observation Time Observation Value Comments Source HEIGHT 2020-03-25 11:00:00 160 cm WEIGHT 2020-03-25 11:00:00 66.588 kg Height 2019-08-21 00:00:00 62 [in_i] [facility] BMI (Body Mass 2019-08-21 00:00:00 25.4 kg/m2 [facility]) Practice Body Weight 2019-08-21 00:00:00 139 [lb_av] [facility] Systolic blood 2022-01-28 15:01:01 123 mm[Hg] Univer sity of pressure Dat [facility] Diastolic blood 2022-01-28 15:01:01 52 mm[Hg] [facility] Heart rate 2022-01-28 15:01:01 95 /min [facility] Body temperature 2022-01-28 15:01:01 36.78 Gilma Univ ersity [facility] Respiratory rate 2022-01-28 15:01:01 12 /min [facility] Body weight 2022-01-28 15:01:01 61.9 kg [facility] ty [facility] BMI 2022-01-28 15:01:01 25.93 kg/m2 [facility] Oxygen saturation in 2022-01-28 15:01:01 97 /min University of Arterial blood by Dat horvathrson Pulse oximetry [facility] Center Systolic blood 2021-08-06 14:59:05 127 mm[Hg] Univer [facility]ity of pressure [facility] Diastolic blood 2021-08-06 14:59:05 58 mm[Hg] Unive rsity of pressure [facility] Heart rate 2021-08-06 14:59:05 47 /min [facility] Body temperature 2021-08-06 14:59:05 36.72 [place] Univ [facility] Respiratory rate 2021-08-06 14:59:05 18 /min Univ [facility] Body weight 2021-08-06 14:59:05 64.3 kg [facility] BMI 2021-08-06 14:59:05 26.94 kg/m2 [facility] Oxygen saturation in 2021-08-06 14:59:05 100 /min University of Arterial blood by Dat horvathrson Pulse oximetry [facility] Center Procedures Procedure Date / Time Performing Clinician Source Performed FREE KAPPA LIGHT CHAIN 2022-01-26 14:30:00 Fouzia Das [facility] FREE LAMBDA LIGHT CHAIN 2022-01-26 14:30:00 Fouzia Das [facility] PROTEIN ELECTROPHORESIS, 2022-01-26 14:30:00 Fouzia Das [facility] SERUM [facility] IMMUNOFIXATION 2022-01-26 14:30:00 Fouzia Das [facility] ELECTROPHORESIS [facility] BETA 2 MICROGLOBULIN 2022-01-26 14:30:00 [facility] LACTATE DEHYDROGENASE 2022-01-26 14:30:00 [facility] Results CBC 2022-01-26 14:30:00 Fouzia Das [facility]y [facility] MANUAL DIFFERENTIAL 2022-01-26 14:30:00 [facility] GLUCOSE LEVEL 2022-01-26 14:30:00 Fouzia Das [facility] BLOOD UREA NITROGEN 2022-01-26 14:30:00 [facility] ELECTROLYTE PANEL 2022-01-26 14:30:00 [facility] SERUM CREATININE 2022-01-26 14:30:00 [facility] .GLOMERULAR FILTRATION 2022-01-26 14:30:00 Fouzia Das [facility] RATE [facility] CALCIUM LEVEL TOTAL 2022-01-26 14:30:00 Fouzia [facility] ALBUMIN LEVEL 2022-01-26 14:30:00 Fouzia Das [facility] ALKALINE PHOSPHATASE 2022-01-26 14:30:00 [facility] ALANINE AMINOTRANSFERASE 2022-01-26 14:30:00 Fouzia Das [facility] ASPARTATE AMINOTRANSFERASE 2022-01-26 14:30:00 Analisa Das [facility] TOTAL PROTEIN 2022-01-26 14:30:00 Fouzia Das [facility] FRACTIONATED BILIRUBIN 2022-01-26 14:30:00 Fouzia Das [facility] FREE KAPPA/FREE LAMBDA 2022-01-26 14:30:00 Fouzia Das [facility] RATIO [facility] .DR. SAAVEDRA PROT ELEC PATH 2022-01-26 14:30:00 Fouzia Das [facility] REVIEW [facility] .DR. SAAVEDRA EDMAR PATH REVIEW 2022-01-26 14:30:00 Analisa Das [facility] COMPLETE BLOOD COUNT W/ 2022-01-26 14:30:00 Fouzia Das [facility] DIFFERENTIAL [facility] COMPREHENSIVE METABOLIC 2022-01-26 14:30:00 Fouzia Das [facility] PANEL [facility] MAGNESIUM LEVEL 2022-01-26 14:30:00 Fouzia Das [facility] PHOSPHORUS LEVEL 2022-01-26 14:30:00 Fouzia Dsa [facility] URIC ACID 2022-01-26 14:30:00 Fouzia Das [facility] IMMUNOGLOBULIN A SERUM 2022-01-26 14:30:00 Fouzia Das [facility] IMMUNOGLOBULIN G SERUM 2022-01-26 14:30:00 Fouzia Das [facility] IMMUNOGLOBULIN M SERUM 2022-01-26 14:30:00 Fouzia Das [facility] PROTEIN ELECTROPHORESIS 2022-01-26 11:30:00 Fouzia Das [facility] URINE [facility] IMMUNOFIXATION 2022-01-26 11:30:00 Fouzia Das [facility] ELECTROPHORESIS URINE [facility] URINE TOTAL PROTEIN 2022-01-26 11:30:00 Fouzia Das [facility] .TOTAL VOLUME 2022-01-26 11:30:00 Fouzia Das [facility] .DR. KERI Sosa PROT ELEC 2022-01-26 11:30:00 Fouzia Das [facility] PATH REVIEW [facility] .DR. SAAVEDRA UIFE PATH 2022-01-26 11:30:00 [facility] MRI WHOLE BODY - BONE 2021-08-06 01:04:00 [facility] COMPLETE BLOOD COUNT W/ 2021-08-03 15:34:00 Fouzia Das [facility] DIFFERENTIAL [facility] COMPREHENSIVE METABOLIC 2021-08-03 15:34:00 Fouzia Das [facility] PANEL [facility] MAGNESIUM LEVEL 2021-08-03 15:34:00 Fouzia Das [facility] PHOSPHORUS LEVEL 2021-08-03 15:34:00 [facility] Das [facility] URIC ACID 2021-08-03 15:34:00 Fouzia Das [facility] IMMUNOGLOBULIN A SERUM 2021-08-03 15:34:00 Fouzia Das [facility] IMMUNOGLOBULIN G SERUM 2021-08-03 15:34:00 Fouzia Das [facility] IMMUNOGLOBULIN M SERUM 2021-08-03 15:34:00 Fouzia Das [facility] FREE KAPPA LIGHT CHAIN 2021-08-03 15:34:00 Fouzia Das [facility] FREE LAMBDA LIGHT CHAIN 2021-08-03 15:34:00 Fouzia Das [facility] PROTEIN ELECTROPHORESIS, 2021-08-03 15:34:00 Fouzia Das [facility] SERUM [facility] IMMUNOFIXATION 2021-08-03 15:34:00 Fouzia Das [facility] ELECTROPHORESIS [facility] BETA 2 MICROGLOBULIN 2021-08-03 15:34:00 [facility] LACTATE DEHYDROGENASE 2021-08-03 15:34:00 [facility] Results CBC 2021-08-03 15:34:00 Fouzia Das [facility] MANUAL DIFFERENTIAL 2021-08-03 15:34:00 Fouzia Das [facility] GLUCOSE LEVEL 2021-08-03 15:34:00 [facility] BLOOD UREA NITROGEN 2021-08-03 15:34:00 Fouzia [facility] ELECTROLYTE PANEL 2021-08-03 15:34:00 Fouzia Dase [facility] SERUM CREATININE 2021-08-03 15:34:00 Fouzia Das [facility] .GLOMERULAR FILTRATION 2021-08-03 15:34:00 Fouzia Das [facility] RATE [facility] CALCIUM LEVEL TOTAL 2021-08-03 15:34:00 Fouzia Das [facility] ALBUMIN LEVEL 2021-08-03 15:34:00 Fouzia Das ity [facility] ALKALINE PHOSPHATASE 2021-08-03 15:34:00 [facility] ALANINE AMINOTRANSFERASE 2021-08-03 15:34:00 Fouzia Das [facility] ASPARTATE AMINOTRANSFERASE 2021-08-03 15:34:00 Analisa Das [facility] TOTAL PROTEIN 2021-08-03 15:34:00 Fouzia Das [facility] FRACTIONATED BILIRUBIN 2021-08-03 15:34:00 Fouzia Das [facility] FREE KAPPA/FREE LAMBDA 2021-08-03 15:34:00 Fouzia [facility] .DR. SAAVEDRA PROT ELEC PATH 2021-08-03 15:34:00 Fouzia Das [facility] REVIEW [facility] .DR. KERI HYATT PATH REVIEW 2021-08-03 15:34:00 Analisa Das [facility] URINE TOTAL PROTEIN 2021-08-03 12:35:00 Fouzia Das [facility] .TOTAL VOLUME 2021-08-03 12:35:00 Fouzia Das [facility] .DR. SAAVEDRA U PROT ELEC 2021-08-03 12:35:00 Fouzia Das [facility] PATH REVIEW [facility] .DR. SAAVEDRA UIFE PATH 2021-08-03 12:35:00 [facility]ORES[facility] 2021-08-03 12:35:00 Fouzia Das [facility] URINE [facility] IMMUNOFIXATION 2021-08-03 12:35:00 Fouzia Das [facility] ELECTROPHORESIS URINE [facility] COMPLETE BLOOD COUNT W/ 2021-02-03 15:37:00 Fouzia Das [facility] DIFFERENTIAL [facility] COMPREHENSIVE METABOLIC 2021-02-03 15:37:00 Fouzia Das [facility] PANEL [facility] MAGNESIUM LEVEL 2021-02-03 15:37:00 Fouzia Das [facility] PHOSPHORUS LEVEL 2021-02-03 15:37:00 [facility]IC ACID 2021-02-03 15:37:00 Fouzia Das [facility] IMMUNOGLOBULIN A SERUM 2021-02-03 15:37:00 Fouzia Das [facility] IMMUNOGLOBULIN G SERUM 2021-02-03 15:37:00 Fouzia Das [facility] IMMUNOGLOBULIN M SERUM 2021-02-03 15:37:00 Fouzia Das [facility] FREE KAPPA LIGHT CHAIN 2021-02-03 15:37:00 Fouzia Das [facility] FREE LAMBDA LIGHT CHAIN 2021-02-03 15:37:00 Fouzia Das [facility] PROTEIN ELECTROPHORESIS, 2021-02-03 15:37:00 Fouzia Das [facility] SERUM [facility] IMMUNOFIXATION 2021-02-03 15:37:00 Fouzia Das [facility] ELECTROPHORESIS [facility] BETA 2 MICROGLOBULIN 2021-02-03 15:37:00 Fouzia Das Un iverschristine [facility] LACTATE DEHYDROGENASE 2021-02-03 15:37:00 [facility] Results CBC 2021-02-03 15:37:00 Fouzia Das [facility] MANUAL DIFFERENTIAL 2021-02-03 15:37:00 Fouzia Das [facility] GLUCOSE LEVEL 2021-02-03 15:37:00 Fouzia Das [facility] BLOOD UREA NITROGEN 2021-02-03 15:37:00 Fouzia Das [facility] ELECTROLYTE PANEL 2021-02-03 15:37:00 [facility]zia Das [facility] SERUM CREATININE 2021-02-03 15:37:00 Fouzia Das [facility] .GLOMERULAR FILTRATION 2021-02-03 15:37:00 Fouzia Das [facility] CALCIUM LEVEL TOTAL 2021-02-03 15:37:00 Fouzia Das [facility] ALBUMIN LEVEL 2021-02-03 15:37:00 Fouzia Das [facility] ALKALINE PHOSPHATASE 2021-02-03 15:37:00 [facility] ALANINE AMINOTRANSFERASE 2021-02-03 15:37:00 Fouzia Das [facility] ASPARTATE AMINOTRANSFERASE 2021-02-03 15:37:00 Analisa Das [facility] TOTAL PROTEIN 2021-02-03 15:37:00 Fouzia Das [facility] FRACTIONATED BILIRUBIN 2021-02-03 15:37:00 Fouzia Das [facility] FREE KAPPA/FREE LAMBDA 2021-02-03 15:37:00 Fouzia Das [facility] RATIO [facility] .DR. MEDINA PROT ELEC 2021-02-03 15:37:00 Fouzia Das [facility] PATH REVIEW [facility] .DR. MEDINA EDMAR PATH 2021-02-03 15:37:00 Fouzia Das [facility] REVIEW [facility] Center PROTEIN ELECTROPHORESIS 2021-02-03 11:00:00 Fouzia Das [facility] URINE [facility] IMMUNOFIXATION 2021-02-03 11:00:00 Fouzia Das [facility] ELECTROPHORESIS URINE [facility] URINE TOTAL PROTEIN 2021-02-03 11:00:00 Fouzia Das [facility] .TOTAL VOLUME 2021-02-03 11:00:00 Fouzia Das [facility] .DR. CHEUNG U PROT ELEC 2021-02-03 11:00:00 Fouzia Das [facility] PATH REVIEW [facility] .DR SALGUERO UIFE PATH 2021-02-03 11:00:00 [facility] Plan of Care Planned Activity Planned Date Details Comments Source Future Scheduled Test 2029-03-01 DTAP/TDAP/TD VACCINES [facility] 00:00:00 (4 - Tdap) [code = Medical C enter DTAP/TDAP/TD VACCINES (4 - Tdap)] Future Scheduled Test 2029-03-01 DTAP/TDAP/TD VACCINES [facility] 00:00:00 (4 - Tdap) [code = Medical C enter DTAP/TDAP/TD VACCINES (4 - Tdap)] Future Scheduled Test 2029-03-01 DTAP/TDAP/TD VACCINES [facility] 00:00:00 (4 - Tdap) [code = Medical C enter DTAP/TDAP/TD VACCINES (4 - Tdap)] Future Scheduled Test 2022-04-[address] [facility] 00:00:00 (12+) [code = Medical Center DEPRESSION SCREENING (12+)] Future Scheduled Test 2022-04-10 FALLS RISK SCREENING [facility] 00:00:00 [code = FALLS RISK Medical C enter SCREENING] Future Scheduled Test 2022-03-23 Hepatitis C screening [facility] 11:27:46 (procedure) [code = [id number]] Future Scheduled Test 2022-03-23 SHINGLES VACCINES (1 [facility] 11:27:46 of 2) [code = SHINGLES VACCINES (1 of 2)] Future Scheduled Test 2022-03-23 BREAST CANCER [facility] 11:27:46 SCREENING [code = BREAST CANCER SCREENING] Future Scheduled Test 2022-03-23 COLONOSCOPY SCREENING [facility] 11:27:46 [code = COLONOSCOPY SCREENING] Future Scheduled Test 2022-03-23 65+ PNEUMOCOCCAL Me [facility] 11:27:46 VACCINE (2 - PPSV23 if available, else PCV20) [code = 65+ PNEUMOCOCCAL VACCINE (2 - PPSV23 if available, else PCV20)] Future Scheduled Test 2022-03-23 COVID-19 VACCINE (3 - [facility] 11:27:46 Pfizer risk series) [code = COVID-19 VACCINE (3 - Pfizer risk series)] Future Scheduled Test 2022-03-23 INFLUENZA VACCINE [facility] 11:27:46 [code = INFLUENZA VACCINE] Future Scheduled Test 2022-02-16 COVID-19 Vaccination [facility] 10:13:21 (4 - Booster for Dat blackman Pfizer series) [code Cancer Center = COVID-19 Vaccination (4 - Booster for Pfizer series)] Future Scheduled Test 2021-12-09 [address] [facility] 00:00:00 (#1) [code = Medical Center INFLUENZA VACCINE (#1)] Future Scheduled Test 2021-12-09 [address] [facility] 00:00:00 (#1) [code = Medical Center INFLUENZA VACCINE (#1)] Future Scheduled Test 2021-12-09 [address]FLU[address] [facility] 00:00:00 (#1) [code = Medical Center INFLUENZA VACCINE (#1)] Future Scheduled Test 2021-12-08 Hepatitis C screening [facility] 16:53:28 (procedure) [code = [id number]] Future Scheduled Test 2021-12-08 SHINGLES VACCINES (1 [facility] 16:53:28 of 2) [code = SHINGLES VACCINES (1 of 2)] Future Scheduled Test 2021-12-08 BREAST CANCER [facility] 16:53:28 SCREENING [code = BREAST CANCER SCREENING] Future Scheduled Test 2021-12-08 COLONOSCOPY SCREENING [facility] 16:53:28 [code = COLONOSCOPY SCREENING] Future Scheduled Test 2021-12-08 65+ PNEUMOCOCCAL [facility] 16:53:28 VACCINE (2 - PPSV23 or PCV20) [code = 65+ PNEUMOCOCCAL VACCINE (2 - PPSV23 or PCV20)] Future Scheduled Test 2021-12-08 COVID-19 VACCINE (3 - [facility] 16:53:28 Pfizer risk series) [code = COVID-19 VACCINE (3 - Pfizer risk series)] Future Scheduled Test 2021-12-08 INFLUENZA VACCINE [facility] 16:53:28 [code = INFLUENZA VACCINE] Future Scheduled Test 2021-12-08 Hepatitis C screening [facility] 16:53:28 (procedure) [code = [id number]] Future Scheduled Test 2021-12-08 SHINGLES VACCINES (1 [facility] 16:53:28 of 2) [code = SHINGLES VACCINES (1 of 2)] Future Scheduled Test 2021-12-08 BREAST CANCER [facility] 16:53:28 SCREENING [code = BREAST CANCER SCREENING] Future Scheduled Test 2021-12-08 COLONOSCOPY SCREENING [facility] 16:53:28 [code = COLONOSCOPY SCREENING] Future Scheduled Test 2021-12-08 65+ PNEUMOCOCCAL [facility] 16:53:28 VACCINE (2 - PPSV23 or PCV20) [code = 65+ PNEUMOCOCCAL VACCINE (2 - PPSV23 or PCV20)] Future Scheduled Test 2021-12-08 COVID-19 VACCINE (3 - [facility] 16:53:28 Pfizer risk series) [code = COVID-19 VACCINE (3 - Pfizer risk series)] Future Scheduled Test 2021-12-08 INFLUENZA VACCINE [facility] 16:53:28 [code = INFLUENZA VACCINE] Future Scheduled Test 2021-11-24 COVID-19 Vaccination University of 10:06:37 (4 - Booster for Dat blackman Pfizer series) [code Cancer Center = COVID-19 Vaccination (4 - Booster for Pfizer series)] Future Scheduled Test 2021-11-24 COVID-19 Vaccination University of 10:06:37 (4 - Booster for Dat blackman Pfizer series) [code Cancer Center = COVID-19 Vaccination (4 - Booster for Pfizer series)] Future Scheduled Test 2021-09-21 COVID-19 Vaccination University of 23:26:30 (4 - Booster for Dat blackman Pfizer series) [code Cancer Center = COVID-19 Vaccination (4 - Booster for Pfizer series)] Future Scheduled Test 2021-04-[address] [facility] 00:00:00 Counseling and Medical Cente r Screening (12+) [code = Tobacco Cessation Counseling and Screening (12+)] Future Scheduled Test 2021-04-[address] [facility] 00:00:00 (12+) [code = Medical Center DEPRESSION SCREENING (12+)] Future Scheduled Test 2021-04-10 FALLS RISK SCREENING [facility] 00:00:00 [code = FALLS RISK Medical C enter SCREENING] Future Scheduled Test 2021-04-[address] [facility] 00:00:00 (12+) [code = Medical Center DEPRESSION SCREENING (12+)] Future Scheduled Test 2021-04-10 FALLS RISK SCREENING [facility] 00:00:00 [code = FALLS RISK Medical C enter SCREENING] Future Scheduled Test 2021-03-[address] [facility] 00:00:00 WELLNESS (YEAR 2 or Medical Center FIRST YEAR if no IPPE) [code = MEDICARE ANNUAL WELLNESS (YEAR 2 or FIRST YEAR if no IPPE)] Future Scheduled Test 2021-03-[address] [facility] 00:00:00 WELLNESS (YEAR 2 or Medical Center FIRST YEAR if no IPPE) [code = MEDICARE ANNUAL WELLNESS (YEAR 2 or FIRST YEAR if no IPPE)] Future Scheduled Test 2021-03-[address] [facility] 00:00:00 WELLNESS (YEAR 2 or Medical Center FIRST YEAR if no IPPE) [code = MEDICARE ANNUAL WELLNESS (YEAR 2 or FIRST YEAR if no IPPE)] Future Scheduled Test 1998 SHINGLES VACCINES ([address] [facility] 00:00:00 of 2) [code = Medical Center SHINGLES VACCINES (1 of 2)] Future Scheduled Test 1998 SHINGLES VACCINES ([address] [facility] 00:00:00 of 2) [code = Medical Center SHINGLES VACCINES (1 of 2)] Future Scheduled Test 1998 SHINGLES VACCINES ([address] [facility] 00:00:00 of 2) [code = Medical Center SHINGLES VACCINES (1 of 2)] Future Scheduled Test 1966 HEPATITIS C SCREENING [facility] 00:00:00 [code = HEPATITIS C Medical Center SCREENING] Future Scheduled Test 1966 HEPATITIS C SCREENING [facility] 00:00:00 [code = HEPATITIS C Medical Center SCREENING] Future Scheduled Test 1966 HEPATITIS C SCREENING [facility] 00:00:00 [code = HEPATITIS C Medical Center SCREENING] Future Scheduled Test 1954 PNEUMOCOCCAL 65+ YRS [facility] 00:00:00 (1 - PCV) [code = Medical Ce nter PNEUMOCOCCAL 65+ YRS (1 - PCV)] Future Scheduled Test 1954 PNEUMOCOCCAL 65+ YRS [facility] 00:00:00 (1 - PCV) [code = Medical Ce nter PNEUMOCOCCAL 65+ YRS (1 - PCV)] Future Scheduled Test 1954 PNEUMOCOCCAL 65+ YRS [facility] 00:00:00 (1 - PCV) [code = Medical Ce nter PNEUMOCOCCAL 65+ YRS (1 - PCV)] Future Scheduled Test 1949-02-11 COVID-19 VACCINE (#1) [facility] 00:00:00 [code = COVID-[address] VACCINE (#1)] Future Scheduled Test 1949-02-11 COVID-19 VACCINE (#1) [facility] 00:00:00 [code = COVID-[address] VACCINE (#1)] Future Scheduled Test 1949-02-11 COVID-19 VACCINE (#1) [facility] 00:00:00 [code = COVID-[address] VACCINE (#1)] Future Scheduled Test [facility] malignant neoplasm of Medica l Center breast (procedure) [code = [id number]] Future Scheduled Test [address] [facility] 00:00:00 (combo) [code = CT Medical C enter Colonography (combo)] Future Scheduled Test 1948 [facility] 00:[facility]:00 malignant neoplasm of Medica l Center colon (procedure) [code = 379860960] Future Scheduled Test 1948 Screening for [facility]00 [facility] colon (procedure) [code = 055506121] Future Scheduled Test 1948 DXA SCAN [code = DXA [facility] 00:00:00 SCAN] [facility] Future Scheduled Test 1948 Screening for [facility]:00 [facility] colon (procedure) [code = 702603832] Future Scheduled Test 1948 Screening for [facility] 00:[facility]:00 [facility] colon (procedure) [code = 563723244] Future Scheduled Test 1948 Sigmoidoscopy [code = [facility] 00:00:00 Sigmoidoscopy] [facility]uled Test 1948 Screening for [facility]:00 [facility] breast (procedure) [code = 715122418] Future Scheduled Test [address] [facility] 00:00:00 (combo) [code = CT Medical C enter Colonography (combo)] Future Scheduled Test 1948 Screening for [facility] 00:[facility]:00 [facility] colon (procedure) [code = 555264453] Future Scheduled Test 1948 Screening for [facility] 00:[facility]:00 [facility] colon (procedure) [code = 762547639] Future Scheduled Test 1948 DXA SCAN [code = DXA [facility] 00:00:00 SCAN] [facility] Future Scheduled Test 1948 Screening for [facility] colon (procedure) [code = 875123264] Future Scheduled Test 1948 Screening for [facility]:00 [facility] colon (procedure) [code = 372543334] Future Scheduled Test 1948 Sigmoidoscopy [code = [facility] 00:00:00 Sigmoidoscopy] [facility] Future Scheduled Test 1948 Screening for [facility]:00 [facility] breast (procedure) [code = 609053685] Future Scheduled Test [address] [facility] 00:00:00 (combo) [code = CT Medical [facility] enter Colonography (combo)] Future Scheduled Test 1948 Screening for [facility]:00 [facility] colon (procedure) [code = 467625706] Future Scheduled Test 1948 Screening for [facility] 00:[facility]:00 [facility] colon (procedure) [code = 196354362] Future Scheduled Test 1948 DXA SCAN [code = DXA [facility] 00:00:00 SCAN] [facility] Future Scheduled Test 1948 Screening for [facility] 00:[facility] colon (procedure) [code = 438664248] Future Scheduled Test 1948 Screening for [facility] 00:00:00 [facility] colon (procedure) [code = 513842732] Future Scheduled Test 1948 Sigmoidoscopy [code = [facility] 00:00:00 Sigmoidoscopy] [facility] Encounters Start End Encounter Admission Attending Care Care Encounter Source Date/Time Date/Time Type Type Clinicians Facility Department ID 2021-12-08 Outpatient SYSTEM, MDA MDA [id number] 08:49:55 PROVIDER Hayder o n 2021-10-07 Outpatient SYSTEM, MDA MDA [id number] 18:28:31 PROVIDER Hayder o n 2021-07-07 Outpatient SYSTEM, MDA MDA [id number] MD 17:15:10 PROVIDER Hayder o n 2021-06-04 Outpatient SYSTEM, MDA MDA [id number] 12:55:23 PROVIDER Hayder o n 2021-01-08 Outpatient SYSTEM, MDA MDA [id number] MD 09:29:06 PROVIDER Hayder o n 2020-11-10 Outpatient SYSTEM, MDA MDA [id number] 10:24:00 PROVIDER Hayder o n 2020-10-06 Outpatient SYSTEM, MDA MDA [id number] 11:31:02 PROVIDER Hayder o n 2019-10-09 Outpatient SYSTEM, MDA MDA [id number] 11:04:10 PROVIDER Hayder o n 2022-01-28 2022-01-28 Office Vanessa Singh 1.2.840.1 [id number] [facility] 10:15:00 12:43:26 Visit C. 88692.1.1 ity of 3.412.2.7 [place] .3.970821 MD [place]8 [facility] 2022-01-28 2022-01-28 Outpatient DAISY SINGH [facility] [id number] 09:55:31 [facility]43[facility] 2022-01-28 Travel 1.2.840.1 1.2.906.726 [id number] [facility] 00:00:00 00:00:00 45346.1.1 350.1.13.41 ity of 3.412.2.7 [place].3.698 [place]3.39[place]5 084.8 MD [place]8 [facility] 2022-01-26 2022-01-26 [facility] [id number] 09:00:00 09:00:00 FOUZIA mckeon 2022-01-26 2022-01-26 Outpatient [facility] [id number] 09:00:00 09:00:00 FOUZIA mckeon 2022-01-26 2022-01-26 [facility], 1.2.840.1 [id number] [facility] 09:00:00 09:00:00 Encounter Fouzia Reynolds 22167.1.1 ity of 3.412.2.7 [place] .3.559135 MD [place]8 [facility] 2022-01-26 2022-01-26 [facility] 1.2.840.1 [id number] [facility] 09:00:00 09:00:00 Encounter Fouzia Reynolds 14884.1.1 ity of 3.412.2.7 [place] .3.287108 MD [place]8 [facility] 2021-08-06 2021-08-06 Office DAISY Singh Vanessa 1.2.840.1 [id number] [facility] 10:15:00 11:51:48 Visit C. 02505.1.1 ity of 3.412.2.7 [place] .3.133294 MD Blood [facility] 2021-08-06 2021-08-06 Office Vanessa Singh 1.2.840.1 [id number] [facility] 10:15:00 11:51:48 Visit C. 74553.1.1 ity of 3.412.2.7 [place] .3.749900 MD Blood [facility] 2021-08-06 2021-08-06 Travel 1.2.840.1 1.2.961.241 [id number] [facility] 00:00:00 00:00:00 11615.1.1 350.1.13.41 ity of 3.412.2.7 [place].3.698 [place]3.[place] 084.8 MD Blood [facility] 2021-08-06 2021-08-06 Travel 1.2.840.1 1.2.420.198 [id number] [facility] 00:00:00 00:00:00 83491.1.1 350.1.13.41 ity of 3.412.2.7 [place]7.3.698 [place]3.736902 084.8 MD Blood [facility] 2021-08-05 2021-08-05 Ancillary DAISY Das, 1.2.840.1 [id number] [facility] 18:15:00 21:00:00 Procedure Fouzia L 35501.1.1 ity of 3.412.2.7 [place] .3.805779 MD Blood [facility] 2021-08-05 2021-08-05 Ancillary Das, 1.2.840.1 [id number] [facility] 18:15:00 21:00:00 Procedure Fouzia L 44666.1.1 ity of 3.412.2.7 [place] .3.975703 MD Blood [facility] 2021-08-05 2021-08-05 Travel 1.2.840.1 1.2.078.352 [id number] [facility] 00:00:00 00:00:00 76760.1.1 350.1.13.41 ity of 3.412.2.7 2.[place]7.3.698 [place]3.706160 084.8 MD Blood [facility] 2021-08-05 2021-08-05 Travel 1.2.840.1 1.2.058.486 [id number] [facility] 00:00:00 00:00:00 08624.1.1 350.1.13.41 ity of 3.412.2.7 [place]7.3.698 [place] .3.619666 084.8 MD Blood [facility] 2021-08-03 2021-08-03 [facility], 1.2.840.1 [id number] [facility] 10:02:52 23:59:00 Encounter Fouzia L 75260.1.1 ity of 3.412.2.7 [place] .3.435567 MD Blood [facility] 2021-08-03 2021-08-03 [facility], 1.2.840.1 [id number] [facility] 10:02:52 23:59:00 Encounter Fouzia L 83999.1.1 ity of 3.412.2.7 [place] .3.392817 MD Blood [facility] 2021-08-02 2021-08-02 [facility], 1.2.840.1 [id number] [facility] 00:00:00 00:00:00 Only Fouzia L 91215.1.1 ity of 3.412.2.7 [place] .3.771993 MD Blood [facility] 2021-08-02 2021-08-02 [facility], 1.2.840.1 [id number] [facility] 00:00:00 00:00:00 Fouzia L 53828.1.1 ity of 3.412.2.7 [place] .3.183511 MD Blood [facility] 2021-08-022021-08-02 [facility] Das, 1.2.840.1 [id number] [facility] 00:00:00 00:00:00 Only Fouzia Reynolds 26544.1.1 ity of 3.412.2.7 [place] .3.583271 MD Blood [facility] 2021-08-02 2021-08-02 [facility] 1.2.840.1 [id number] [facility] 00:00:00 00:00:00 Fouzia L 28586.1.1 ity of 3.412.2.7 [place] .3.607090 MD Blood [facility] 2021-02-05 2021-02-05 Office Vanessa Machado 1.2.840.1 [id number] [facility] 10:00:00 11:39:51 Visit CCristofer 62047.1.1 ity of 3.412.2.7 [place] .3.736441 MD Blood [facility] 2021-02-05 2021-02-05 Travel 1.2.840.1 1.2.240.940 [id number] [facility] 00:00:00 00:00:00 82456.1.1 350.1.13.41 ity of 3.412.2.7 2.[place]7.3.698 [place]3.402030 084.8 MD Blood [facility] 2021-02-03 2021-02-03 [facility], 1.2.840.1 [id number] [facility] 09:48:49 23:59:00 Encounter Fouzia Reynolds 61267.1.1 ity of 3.412.2.7 [place] .3.765405 MD Blood [facility] 2020-10-29 2020-10-29 [facility], 1.2.840.1 [id number] [facility] 20:00:00 20:05:00 Procedure Fouzia Reynolds 20770.1.1 ity of 3.412.2.7 [place] .3.679086 MD Blood [facility] 2020-10-29 2020-10-29 [facility] Das, 1.2.840.1 [id number] [facility] 00:00:00 00:00:00 Only Fouzia Reynolds 64667.1.1 ity of 3.412.2.7 [place] .3.267746 .8 [facility] 2020-09-25 2020-09-25 Outpatient DAISY SINGH [facility] [id number] 07:33:24 07:33:24 Hayder lizama 2020-08-27 2020-08-28 Inpatient [facility] [id number] [place] 00:00:00 00:00:00 , CHANTAL 398 [place] 2020-08-25 2020-08-25 Outpatient [facility] [id number] [place] 00:00:00 00:00:00 , CHANTAL 455 [place] 2020-08-25 2020-08-25 Outpatient [facility] [id number] [place] 00:00:00 00:00:00 , CHANTAL 458 [place] 2020-08-25 2020-08-25 Outpatient [facility] [id number] Dor[place] 00:00:00 00:00:00 , CHANTAL 108 [place] 2020-07-28 2020-07-29 Outpatient [facility] [id number] [place] 00:00:00 00:00:00 , CHANTAL 001 [place] 2020-07-28 2020-07-29 Outpatient [facility] [id number] [place] 00:00:00 00:00:00 , CHANTAL [address] 2020-07-28 2020-07-28 Outpatient [facility] [id number] [place] 00:00:00 00:00:00 , CHANTAL [address] 2020-04-15 2020-04-15 Outpatient [place] [facility] [id number] SLE 00:00:00 00:00:00 CARL 2020-03-25 2020-03-25 Outpatient EL LETSOU, [facility] [id number] SLE 00:00:00 00:00:00 CARL 2020-01-21 2020-01-21 Outpatient Jakub-Mbayo VFP VFP [id number] [facility] 04:16:00 04:16:00 _A_AH 91716 Family Practic e 2019-09-06 2019-09-06 Outpatient Jakub-Mbayo VFP VFP [id number] [facility] 03:36:00 03:36:00 _A_AH 08763 Family Practic e 2019-09-05 2019-09-05 Outpatient Jakub-Mbayo VFP VFP [id number] [facility] 03:05:00 03:05:00 _A_AH 23679 Family Practic e 2019-08-28 2019-08-28 Outpatient Jakub-Mbayo VFP VFP [id number] [facility] 11:03:00 11:03:00 _A_AH 60474 Family Practic e 2019-08-26 2019-08-26 Outpatient Jakub-Mbayo VFP VFP [id number] [facility] 01:01:00 01:01:00 _A_AH 07472 Family Practic e 2019-08-22 2019-08-22 Outpatient Jakub-Mbayo VFP VFP [id number] [facility] 12:21:00 12:21:00 _A_AH 81613 Family Practic e 2019-08-21 2019-08-21 Outpatient Jakub-Mbayo VFP VFP [id number] [facility] 11:37:00 11:37:00 _A_AH 85071 Family Practic e 2019-08-21 2019-08-21 Lynnette VFP [place] - [id number] V illage 00:00:00 00:00:00 Jakub-Mbay [facility] Fam kurtis parker COMMUNICATION ANALYST: Medical - Practi c [address] [email or web address] [facility], [address] [address], [place] [address] , Ph. 2019-05-29 2019-05-29 Outpatient Jakub-Mbayo VFP VFP [id number] [facility] 07:18:00 07:18:00 _A_AH 61983 Family Practic e Results Test Description Test Time Test Comments Results Result Sourc e Comments Urine EDMAR Path 2022-01-09 UIFE Path IntThe Univ ersity of Review 8 follow-up urine Dat GARCIA 17:15:06 [facility] immunofixation Cancer [facility] electrophoretic patterns obtained with the use of antisera against IgG, IgA, IgM, bound kappa and bound lambda light chains, free kappa and free lambda light chains are suggestive of urinary light chain ladder patterns (kappa and lambda). The presence of a Bence-Liang proteinuria, however, cannot be completely ruled out by this study. Correlation with the clinical findings is recommended. [facility] EDMAR Urine 2022-02-04 17:15:05 Test Item Value Reference Range Interpretation Comme nts UIFE (test code = 7916) See Comment [facility] Electrophoresis Path [id number] 17:15:04 Test Item Value Reference Range Interpretation Comments U ProE Path The follow-up urine Int (test protein code = electrophoretic BE VERLY 7803) pattern does not show [place] [address] Dictated by: a Bence-Liang protein BEVERL Y MD KERI - peak. [id number] Date/Time: 01.09 12:15 PM CDT Transcribed Date/Time: 01.09 12:15 PM CDTElectronical ly Signed By: BRIAN SAAVEDRA MD - 1018 4 on 02.04.2022 12:1 5 PM [facility] Elect[facility]oresis Urine 2022-02-04 17:15:03 Test Item Value Reference Range Interpretation Comments U Albumin % (test code = 7676) 36.7 % U Globulin% (test code = 8523) 63.3 % [facility] Path [id number] 16:47:45 EDMAR Path IntThe follow-up serum protein immunofixation electrophoretic patterns obtained with the use of antisera against IgG, IgA, IgM, bound kappa and bound lambda light chains are suggestive of an oligoclonal gammopathy. Follow-up serum protein electrophoretic studies and correlation with the clinical findings, however, are suggested. [facility] PflugervilleIFE2022-10-28 16:47:44 Test Item Value Reference Range Interpretation Comments EDMAR (test code = 5948) See Comment [facility] Electroph[facility] Path Review 2022-02-04 16:47:43 Test Item Value Reference Range Interpretation Comments SPE Path The follow-up serum Interp (test protein code = 7285) electrophoretic BE VERLY pattern does not show MD KERI - definitive evidence 01990Ond tated by: of an M-protein peak. TRENTON SAAVEDRA MD - [id number] Date/Time: 01.09 11:47 AM CDT Transcribed Date/Time: 01.09 11:47 AM CDTElectronical ly Signed By: BRIAN SAAVEDRA MD - 1018 4 on 02.04.2022 11:4 7 AM [facility] 2022-02-04 16:47:42 Test Item Value Reference Range Interpretation Comments TOT PROTEIN (test code 6.6 See_Comment [Aut omated message] The = 8545) system which ge nerated this result tra nsmitted reference range : 6.4 - 8.3 gm/dL. The reference range was not u sed to interpret this result as normal/abnormal . Albumin (test code = 3.6 See_Comment [Autom ated message] The 4760) system which ge nerated this result tra nsmitted reference range : 3.6 - 5.4 gm/dL. The reference range was not u sed to interpret this result as normal/abnormal . Alpha 1 Globulin (test 0.4 See_Comment [Aut omated message] The code = 4774) system which ge nerated this result tra nsmitted reference range : 0.2 - 0.4 gm/dL. The reference range was not u sed to interpret this result as normal/abnormal . Alpha 2 Globulin (test 1.0 See_Comment [Aut omated message] The code = 4777) system which ge nerated this result tra nsmitted reference range : 0.5 - 1.0 gm/dL. The reference range was not u sed to interpret this result as normal/abnormal . Beta Globulin (test 0.8 See_Comment [Automa jenny message] The code = 5078) system which ge nerated this result tra nsmitted reference range : 0.5 - 1.1 gm/dL. The reference range was not u sed to interpret this result as normal/abnormal . Gamma Globulin (test 0.9 See_Comment [Autom ated message] The code = 2874-6) system which generated this result tra nsmitted reference range : 0.7 - 1.6 gm/dL. The reference range was not u sed to interpret this result as normal/abnormal . Paraprotein1 (test code 0.0 See_Comment [Au tomated message] The = 6784) system which ge nerated this result tra nsmitted reference range : 0.0 - 0.0 gm/dL. The reference range was not u sed to interpret this result as normal/abnormal . [facility] [place]/Free Lambda Ratio 2022-01-26 20:32:58 Test Item Value Reference Range Interpretation Comments FKap/FLam RT (test code = 5566) 1.43 0.26-1.65 [facility] CampusFree Lambda Light [id number] 20:32:57 Test Item Value Reference Range Interpretation Comments Free Lambda (test code = 5630) 58.78 mg/L 5.71-26.30 H Lab Interpretation (test code = Abnormal 02470-2) [facility] [place] Light [id number] 20:32:56 Test Item Value Reference Range Interpretation Comments Free [place] (test code = 5629) 83.84 mg/L 3.30-19.40 H Lab Interpretation (test code = Abnormal 04856-9) [facility] CampusBeta 2 Emglmznfounwb5245-15-57 20:32:55 Test Item Value Reference Range Interpretation Comments Beta2 Microglob (test 3.7 mg/L 0.8-2.3 H This t est is measured code = 5090) by turbidimetri c methodology on the The Binding Site Op tilite analyzer. Resul ts obtained from different metho ds are not interchange able. Lab Interpretation Abnormal (test code = 87740-4) [facility] CampusIgM2022-10-19 20:32:54 Test Item Value Reference Range Interpretation Comments IgM (test code = 6023) 23 mg/dL 35-242 L Lab Interpretation (test code = Abnormal 96290-8) [facility] CampusIgG2022-10-19 20:32:53 Test Item Value Reference Range Interpretation Comments IgG (test code = 6001) 938 mg/dL 610-1616 [facility] CampusIgA2022-10-19 20:32:52 Test Item Value Reference Range Interpretation Comments IgA (test code = 5992) 233 mg/dL 85-499 [facility] Campus24hr Urine Total [id number] 18:55:32 Test Item Value Reference Range Interpretation Comments UTP (test code = 4 mg/dL Caution is advised when 7921) interpreting va lues greater than 555 mg/dL. Results requiring exten ded dilution beyond the manu facturer's recommendedlimi t may not dilute linearly due to potential matri x effect.Correlat ion with clinical contex t is recommended. UTP 24 (test code 78 See_Comment [Automate d message] The = 7923) system which ge nerated this result transmit jenny reference range: <=149 mg /24hr. The reference range was not used to interpret th is result as normal/abnormal . [facility] CampusTotal [id number] 17:54:53 Test Item Value Reference Range Interpretation Comments Total Volume (test code 1950 See_Comment H [Au tomated = 7650) message] The sy stem which generated this result transmitted reference range : 1,200 - 1,500 m L/24 h. The referenc e range was not u sed to interpret th is result as normal/abnormal . Hrs Collected (test 24 code = 5928) Start Date (test code = 01/25/2022 7382) End Date (test code = 01/26/2022 33511-3) U24 Comment (test code 0630a-0630a = 8547) Lab Interpretation Abnormal (test code = 29848-5) [facility] CampusFractionated [id number] 15:18:55 Test Item Value Reference Range Interpretation Comments Bili Total (test 0.7 mg/dL See_Comment Indocyanine Green (ICG) code = 1974-05) may cause fal sely elevated biliru bin results. Total and direct bilirubin must not be measured from s amples containing indo cyanine green. False el evation of total bilirubin can be seen in patient s with IgG concentrations above 28 g/L. [Automated message] The system [employer] generated this result transmitted ref erence range: <=1.2. T he reference range was not used to interpr et this result as normal/abnormal . Bili Direct (test 0.2 mg/dL See_Comment Indocyanin e Green (ICG) code = 1967-10) may cause fal sely elevated biliru bin results. Total and direct bilirubin must not be measured from s amples containing indo cyanine green. [Automat ed message] The sy stem which generated this result transmitted ref erence range: <=0.3. T he reference range was not used to interpr et this result as normal/abnormal . Bili Indirect (test 0.5 mg/dL 0.0-0.9 code = 1970-04) [facility] Cancer BrentonGlomerular Filtration Rate 2022-01-26 15:18:54 Test Item Value Reference Range Interpretation Comments eGFR (test code = 50 See_[place] [address]) calculated with the 2020 CKD-EPI cr eatinine equation using creatinine, pat ient's age, and sex fo r adults 18 years of age and older. Other fa ctors, especially musc le mass, may affect accu racy and need to be considered.Acco rding to the Kidney Dise ase: Improving Globa l Outcomes (KDIGO ) CKD Work Group 2012 Clinical Practi ce Guideline, pump machine operator keira kidney disease (CKD) is defined as the abnormalities o f kidney structure or fu nction, present for mor e than 3 months, with implications fo r health. CKD gatito uld be classified by c ause, GFR category, a nd albuminuria cat egory. KDIGO guideline s provide the fol lowing GFR categoriesS tage Description GFR mL/min/1.73 m2G 1* Normal or high >= 90G2* Mildly decrease d 60-89G3a Mildly to moderately decr eased 45-59G3b Modera tely to severely decrea sed 30-44G4 Severel y decreased 15-29 G5 Kidney failure <15*In the absence of evidence of kidney damag e, neither G1 nor G2 fulfill criteri a for CKD. [Automated message] The sy stem which generated this result transmit jenny reference range : >=60 mL/min/1.73 sq. m. The reference range was not used to interpr et this result as normal/abnormal . Lab Interpretation Abnormal (test code = 82643-9) [facility] CampusMagnesium [id number] 15:18:53 Test Item Value Reference Range Interpretation Comments Magnesium (test code = 00457-9) 1.7 mg/dL 1.6-2.6 [facility] CampusLDH2022-10-19 15:18:52 Test Item Value Reference Range Interpretation Comments LDH (test code = 125 U/L 135-214 L Results gre ater than 49066-4) 1651 U/L may no t be reliable due to matrix effect w ith extended diluti on as it exceeds the rubber covering machine operator's recommended diallo it. Caution should be exercised when interpreting diaz ch values and done in conjunction wit h clinical contex t. Lab Interpretation (test Abnormal code = 98890-1) [facility] CampusAlkaline [id number] 15:18:51 Test Item Value Reference Range Interpretation Comments Alk Phos (test code = 6768-6) 77 U/L 35-104 [facility] CampusAlbumin Xyhfw6118-49-20 15:18:50 Test Item Value Reference Range Interpretation Comments Albumin Lvl (test code 3.9 See_Comment [Aut omated message] The = 1750-10) system which ge nerated this result tra nsmitted reference range : 3.5 - 5.2 gm/dL. The refe rence range was not used to interpret this result as normal/abnormal . [facility] CampusAspartate Aminotransferase 2022-01-26 15:18:49 Test Item Value Reference Range Interpretation Comments AST (test code = 13 U/L See_Comment [Automated message] The 1919-11) system which ge nerated this result transmit jenny reference range : <=32. The reference range was not used to interpr et this result as lani l/abnormal. [facility] CampusElectrolyte [id number] 15:18:48 Test Item Value Reference Range Interpretation Comments Sodium Lvl (test code = 136 See_Comment [Au tomated message] 2951-2) The system [employer] generated this result transmitted ref erence range: 136 - 14 5 mEq/L. The refe rence range was not u sed to interpret this result as normal/abnor mal. Potassium Lvl (test code 3.2 See_Comment L [A utomated message] = 2823-3) The system [employer] generated this result transmitted ref erence range: 3.5 - 5. 1 mEq/L. The refe rence range was not u sed to interpret this result as normal/abnor mal. Chloride (test code = 97 See_Comment L [Auto mated message] 3885-0) The system [employer] generated this result transmitted ref erence range: 98 - 107 mEq/L. The refe rence range was not u sed to interpret this result as normal/abnor mal. CO2 (test code = 2027-) 30 See_Comment H [A utomated message] The system [employer] generated this result transmitted ref erence range: 22 - 29 mEq/L. The reference r josette was not used to interpret this result as normal/abnor mal. Anion Gap (test code = 9 See_Comment [Aut omated message] 49989-1) The system [employer] generated this result transmitted ref erence range: 4 - 14 m Eq/L. The reference r josette was not used to interpret this result as normal/abnor mal. Lab Interpretation (test Abnormal code = 59008-0) [facility].Serum Ljeaxrmzce0284-37-04 15:18:46 Test Item Value Reference Range Interpretation Comments Creatinine (test code = 2160-0) 1.15 mg/dL 0.51-0.95 H Lab Interpretation (test code = Abnormal 59114-2) [facility] [id number] 15:18:44 Test Item Value Reference Range Interpretation Comments Uric Acid (test code = 3084-1) 4.9 mg/dL 2.4-5.7 [facility]Total [id number] 15:18:43 Test Item Value Reference Range Interpretation Comments Total Protein (test code = 2885-2) 6.6 g/dL 6.4-8.3 [facility]Phosphorus [id number] 15:18:42 Test Item Value Reference Range Interpretation Comments Phosphorus (test code = 2777-1) 2.4 mg/dL 2.5-4.5 L Lab Interpretation (test code = Abnormal 72047-8) [facility]Calcium [id number] 15:18:41 Test Item Value Reference Range Interpretation Comments Calcium Lvl (test code = 19052-2) 9.0 mg/dL 8.4-10.2 [facility] CampusALT2022-10-19 15:18:40 Test Item Value Reference Range Interpretation Comments ALT (test code = 12 U/L See_Comment [Automated message] The 1741-09) system which ge nerated this result transmit jenny reference range : <=33. The reference range was not used to interpr et this result as lani l/abnormal. [facility] CampusBUN2022-10-19 15:18:39 Test Item Value Reference Range Interpretation Comments BUN (test code = 3094-0) 21 mg/dL 6-23 [facility] CampusGlucose Soinb9776-30-34 15:18:38 Test Item Value Reference Range Interpretation Comments Glucose Level (test code 110 mg/dL 70-99 H Eff ective 11/04/15, = 2345-7) the glucose reference inter vals have been updat ed based on [place] an Diabetes Associ ation guidelines (Standards of Medical Care in Diabetes 2016. Diabetes Care 2 016; 39: S13-S22).Fa sting blood glucose:Normal: 70-99 mg/dLImpa ired fasting glucose (increased risk for diabetes or pre-diabetes): 100-125 mg/dLDiabetes mellitus: >/=12 6 mg/dL Random bl ood glucose:Normal: 70-199 mg/dLNot e: Random glucose >100 mg/dL is associ ated with increased risk for diabetes Lab Interpretation (test Abnormal code = 55673-0) [facility] CampusDifferential2022-10-19 14:48:32 Test Item Value Reference Range Interpretation Comments Neutrophil % (test code = 46.0 % 42.0-66.0 770-8) Lymphocyte % (test code = 31.4 % 24.0-44.0 736-9) Monocyte % (test code = 15.1 % 2.0-7.0 H 5905-5) Eosinophil % (test code = 6.1 % 1.0-4.0 H 713-8) Basophil % (test code = 0.7 % 0.0-1.0 706-2) IGRE % (test code = 0.7 % 0.0-0.4 H IGRE % c ount 99993-8) includes Metamyelocytes, Myelocytes, and Promyelocytes. Neutrophil Abs (test code 1.94 K/uL 1.70-7.30 = 751-8) Lymphocyte Abs (test code 1.33 K/uL 1.00-4.80 = 731-0) Monocyte Abs (test code = 0.64 K/uL 0.08-0.70 742-7) Eosinophil Abs (test code 0.26 K/uL 0.04-0.40 = 711-2) Basophil Abs (test code = 0.03 K/uL 0.00-0.10 704-7) IG Abs (test code = 0.03 K/uL 0.00-0.04 21728-8) Lab Interpretation (test Abnormal code = 00908-9) [facility] [place].[id number] 14:48:17 Test Item Value Reference Range Interpretation Comments WBC (test code = 4.2 K/uL 4.0-11.0 6690-2) RBC (test code = 789-8) 3.02 See_Comment L [Au tomated message] The system [employer] generated this result transmitted ref erence range: 4.00 - 5 .50 M/uL. The refer ence range was not u sed to interpret this result as normal/abnor mal. Hgb (test code = 718-7) 10.5 See_Comment L [Au tomated message] The system [employer] generated this result transmitted ref erence range: 12.0 - 1 6.0 gm/dL. The refe rence range was not u sed to interpret this result as normal/abnor mal. Hct (test code = 30.2 % 37.0-47.0 L 4544-3) MCV (test code = 787-2) 100 fL 82-98 H MCH (test code = 785-6) 34.8 pg 27.0-31.0 H MCHC (test code = 34.8 See_Comment [Automate d message] 786-4) The system [employer] generated this result transmitted ref erence range: 31.0 - 3 6.0 gm/dL. The refe rence range was not u sed to interpret this result as normal/abnor mal. RDW-SD (test code = 64.1 fL 35.1-46.3 H 76008-7) RDW-CV (test code = 17.4 % 12.0-15.5 H 788-0) Platelet count (test 148 K/uL 140-440 code = 777-3) MPV (test code = 12.9 fL 4.0-10.4 H 46478-3) INRBC (test code = 0.0 % See_Comment The INRBC (instrument 35309-5) NRBC) value ref lects the enumeration of nucleated red b lood cells contained in a 200uL sampleof whole blood analyzed by the instrument. Thi s value maydiffer from the NRBC value repo rted in a manual differential,wh ich is based on a 100 cell differential. [Automated mess age] The system [employer] generated this result transmitted ref erence range: <=0.0. T he reference range was not used to int erpret this result as normal/abnormal . Lab Interpretation Abnormal (test code = 66423-4) [facility] CampusUrine EDMAR Path [id number] 12:10:46UIFE Path IntThe follow-up urine protein immunofixation electrophoretic patterns obtained with the use of antisera against IgG, IgA, IgM, bound kappa and bound lambda light chains, free kappa and free lambda light chains do not show definitive evidence of a Bence-Liang proteinuria. [facility]ENTERUnB[facility] PflugervilleUrine EDMAR Path Review 2021-08-06 12:10:46UIFE Path IntThe follow-up urine protein immunofixation electrophoretic patterns obtained with the use of antisera against IgG, IgA, IgM, bound kappa and bound lambda light chains, free kappa and free lambda light chains do not show definitive evidence of a Bence-Liang proteinuria. [facility]ENTERUnB[facility] [place]flugervilleUrine EDMAR Path [id number] 12:10:46UIFE Path IntThe follow-up urine protein immunofixation electrophoretic patterns obtained with the use of antisera against IgG, IgA, IgM, bound kappa and bound lambda light chains, free kappa and free lambda light chains do not show definitive evidence of a Bence-Liang proteinuria. [facility]ENTERUnB[facility] PflugervilleIFE [id number] 12:10:45 Test Item Value Reference Range Interpretation Comments UIFE (test code = 7916) No BJP Seen [facility] CampusIFE [id number] 12:10:45 Test Item Value Reference Range Interpretation Comments UIFE (test code = 7916) No BJP Seen [facility] CampusIFE Vjlhl0789-70-86 12:10:45 Test Item Value Reference Range Interpretation Comments UIFE (test code = 7916) No BJP Seen [facility] CampusUrine Prot Electrophoresis Path [id number] 12:10:44 Test Item Value Reference Range Interpretation Comments U ProE Path The follow-up urine Int (test protein code = 7803) electrophoretic JOANA pattern does not show [place] [id number] Dictated by: a Bence-Liang protein TRENTON SAAVEDRA MD - peak. [id number] Date/Time: 08.06.2021 7:10 AM CDT Transcribed Date/Time: 08.06.2021 7:10 AM CDTElectronical ly Signed By: BRIAN SAAVEDRA MD - 1018 4 on 08.06.2021 7:10 AM C [facility] CampusUrine Prot Electrophoresis Path [id number] 12:10:44 Test Item Value Reference Range Interpretation Comments U ProE Path The follow-up urine Int (test protein code = 7803) electrophoretic JOANA pattern does not show [place] [id number] Dictated by: a Bence-Liang protein TRENTON SAAVEDRA MD - peak. [id number] Date/Time: 08.06.2021 7:10 AM CDT Transcribed Date/Time: 08.06.2021 7:10 AM CDTElectronical ly Signed By: MD Gary GIMENEZ 1018 4 on 08.06.2021 7:10 AM C [facility] CampusUrine Prot Electrophoresis Path [id number] 12:10:44 Test Item Value Reference Range Interpretation Comments U ProE Path The follow-up urine Int (test protein code = 7803) electrophoretic JOANA pattern does not show [place] [address] Dictated by: a Bence-Liang protein TRENTON SAAVEDRA MD - peak. [id number] Date/Time: 08.06.2021 7:10 AM CDT Transcribed Date/Time: 08.06.2021 7:10 AM CDTElectronical ly Signed By: MD Gary GIMENEZ 1018 4 on 08.06.2021 7:10 AM C [facility] CampusProtein Electrophoresis Urine 2021-08-06 12:10:43 Test Item Value Reference Range Interpretation Comments U Albumin % (test code = 7676) 44.3 % U Globulin% (test code = 8523) 55.7 % [facility] CampusProtein Electrophoresis Urine 2021-08-06 12:10:43 Test Item Value Reference Range Interpretation Comments U Albumin % (test code = 7676) 44.3 % U Globulin% (test code = 8523) 55.7 % [facility] CampusProtein Electrophoresis Urine 2021-08-06 12:10:43 Test Item Value Reference Range Interpretation Comments U Albumin % (test code = 7676) 44.3 % U Globulin% (test code = 8523) 55.7 % [facility] CampusIFE Path [id number] 12:08:14 EDMAR Path IntThe follow-up serum protein immunofixation electrophoretic patterns obtained with the use of antisera against IgG, IgA, IgM, bound kappa and bound lambda light chains are suggestive of an oligoclonal gammopathy. Follow-up serum protein electrophoretic studies and correlation with the clinical findings, however, are suggested. [facility] CENTERUnBaylor [facility] – [place]flugervilleIFE Path [id number] 12:08:14IFE Path IntThe follow- up serum protein immunofixation electrophoretic patterns obtained with the use of antisera against IgG, IgA, IgM, bound kappa and bound lambda light chains are suggestive of an oligoclonal gammopathy. Follow-up serum protein electrophoretic studies and correlation with the clinical findings, however, are suggested. [facility] CENTERUnB[facility] – PflugervilleIFE Path [id number] 12:08:14IFE Path IntThe follow-up serum protein immunofixation electrophoretic patterns obtained with the use of antisera against IgG, IgA, IgM, bound kappa and bound lambda light chains are suggestive of an oligoclonal gammopathy. Follow-up serum protein electrophoretic studies and correlation with the clinical findings, however, are suggested. [facility] MarshallIFE2022-04-29 12:08:13 Test Item Value Reference Range Interpretation Comments EDMAR (test code = 5948) See Comment [facility] CampusIFE2022-04-29 12:08:13 Test Item Value Reference Range Interpretation Comments EDMAR (test code = 5948) See Comment [facility] CampusIFE2022-04-29 12:08:13 Test Item Value Reference Range Interpretation Comments EDMAR (test code = 5948) See Comment [facility] CampusProtein Electrophoresis Path Review 2021-08-06 12:08:12 Test Item Value Reference Range Interpretation Comments SPE Path The follow-up serum Interp (test protein ____ code = 7285) electrophoretic __BEVER pattern shows small, LY HAND Y,MD - [place] [address]Xld tated by: the gamma region. JOANA MARQUEZ MD - Please see concurrent [id number] ictated immunofixation Date/Time: results. 08.06.2021 7:08 AM CDT Transcribed Date/Time: 08.06.2021 7:08 AM CDTElectronical ly Signed By: MD Gary GIMENEZ 1018 4 on 08.06.2021 7:08 AM C [facility] CampusProtein Electrophoresis Path Review 2021-08-06 12:08:12 Test Item Value Reference Range Interpretation Comments SPE Path The follow-up serum Interp (test protein ____ code = 7285) electrophoretic __BEVER pattern shows small, LY HAND Y,MD - [place] [address]Pqh tated by: the gamma region. JOANA MARQUEZ MD - Please see concurrent [id number] ictated immunofixation Date/Time: results. 08.06.2021 7:08 AM CDT Transcribed Date/Time: 08.06.2021 7:08 AM CDTElectronical ly Signed By: MD Gary GIMENEZ 1018 4 on 08.06.2021 7:08 AM C [facility] CampusProtein Electrophoresis Path Review 2021-08-06 12:08:12 Test Item Value Reference Range Interpretation Comments SPE Path The follow-up serum Interp (test protein ____ code = 7285) electrophoretic __BEVER pattern shows small, LY HAND Y,MD - indistinct [place] [address]Sms tated by: the gamma region. JOANA MARQUEZ MD - Please see concurrent [id number] ictated immunofixation Date/Time: results. 08.06.2021 7:08 AM CDT Transcribed Date/Time: 08.06.2021 7:08 AM CDTElectronical ly Signed By: BRIAN SAAVEDRA MD - 1018 4 on 08.06.2021 7:08 AM C [facility] 2021-08-06 12:08:11 Test Item Value Reference Range Interpretation Comments TOT PROTEIN (test code 6.9 See_Comment [Aut omated message] The = 8545) system which ge nerated this result tra nsmitted reference range : 6.4 - 8.3 gm/dL. The reference range was not u sed to interpret this result as normal/abnormal . Albumin (test code = 3.8 See_Comment [Autom ated message] The 1751-7) system which ge nerated this result tra nsmitted reference range : 3.6 - 5.4 gm/dL. The reference range was not u sed to interpret this result as normal/abnormal . Alpha 1 Globulin (test 0.4 See_Comment [Aut omated message] The code = 4774) system which ge nerated this result tra nsmitted reference range : 0.2 - 0.4 gm/dL. The reference range was not u sed to interpret this result as normal/abnormal . Alpha 2 Globulin (test 1.0 See_Comment [Aut omated message] The code = 4777) system which ge nerated this result tra nsmitted reference range : 0.5 - 1.0 gm/dL. The reference range was not u sed to interpret this result as normal/abnormal . Beta Globulin (test 0.8 See_Comment [Automa jenny message] The code = 5078) system which ge nerated this result tra nsmitted reference range : 0.5 - 1.1 gm/dL. The reference range was not u sed to interpret this result as normal/abnormal . Gamma Globulin (test 0.9 See_Comment [Autom ated message] The code = 2874-6) system which generated this result tra nsmitted reference range : 0.7 - 1.6 gm/dL. The reference range was not u sed to interpret this result as normal/abnormal . Paraprotein1 (test code 0.0 See_Comment [Au tomated message] The = 6784) system which ge nerated this result tra nsmitted reference range : 0.0 - 0.0 gm/dL. The reference range was not u sed to interpret this result as normal/abnormal . [facility] Electrophoresis 2021-08-06 12:08:11 Test Item Value Reference Range Interpretation Comments TOT PROTEIN (test code 6.9 See_Comment [Aut omated message] The = 8545) system which ge nerated this result tra nsmitted reference range : 6.4 - 8.3 gm/dL. The reference range was not u sed to interpret this result as normal/abnormal . Albumin (test code = 3.8 See_Comment [Autom ated message] The 1751-7) system which ge nerated this result tra nsmitted reference range : 3.6 - 5.4 gm/dL. The reference range was not u sed to interpret this result as normal/abnormal . Alpha 1 Globulin (test 0.4 See_Comment [Aut omated message] The code = 4774) system which ge nerated this result tra nsmitted reference range : 0.2 - 0.4 gm/dL. The reference range was not u sed to interpret this result as normal/abnormal . Alpha 2 Globulin (test 1.0 See_Comment [Aut omated message] The code = 4777) system which ge nerated this result tra nsmitted reference range : 0.5 - 1.0 gm/dL. The reference range was not u sed to interpret this result as normal/abnormal . Beta Globulin (test 0.8 See_Comment [Automa jenny message] The code = 5078) system which ge nerated this result tra nsmitted reference range : 0.5 - 1.1 gm/dL. The reference range was not u sed to interpret this result as normal/abnormal . Gamma Globulin (test 0.9 See_Comment [Autom ated message] The code = 2874-6) system which generated this result tra nsmitted reference range : 0.7 - 1.6 gm/dL. The reference range was not u sed to interpret this result as normal/abnormal . Paraprotein1 (test code 0.0 See_Comment [Au tomated message] The = 6784) system which ge nerated this result tra nsmitted reference range : 0.0 - 0.0 gm/dL. The reference range was not u sed to interpret this result as normal/abnormal . [facility] Electrophoresis 2021-08-06 12:08:11 Test Item Value Reference Range Interpretation Comments TOT PROTEIN (test code 6.9 See_Comment [Aut omated message] The = 8545) system which ge nerated this result tra nsmitted reference range : 6.4 - 8.3 gm/dL. The reference range was not u sed to interpret this result as normal/abnormal . Albumin (test code = 3.8 See_Comment [Autom ated message] The 175-7) system which ge nerated this result tra nsmitted reference range : 3.6 - 5.4 gm/dL. The reference range was not u sed to interpret this result as normal/abnormal . Alpha 1 Globulin (test 0.4 See_Comment [Aut omated message] The code = 4774) system which ge nerated this result tra nsmitted reference range : 0.2 - 0.4 gm/dL. The reference range was not u sed to interpret this result as normal/abnormal . Alpha 2 Globulin (test 1.0 See_Comment [Aut omated message] The code = 4777) system which ge nerated this result tra nsmitted reference range : 0.5 - 1.0 gm/dL. The reference range was not u sed to interpret this result as normal/abnormal . Beta Globulin (test 0.8 See_Comment [Automa jenny message] The code = 5078) system which ge nerated this result tra nsmitted reference range : 0.5 - 1.1 gm/dL. The reference range was not u sed to interpret this result as normal/abnormal . Gamma Globulin (test 0.9 See_Comment [Autom ated message] The code = 2874-6) system which generated this result tra nsmitted reference range : 0.7 - 1.6 gm/dL. The reference range was not u sed to interpret this result as normal/abnormal . Paraprotein1 (test code 0.0 See_Comment [Au tomated message] The = 6784) system which ge nerated this result tra nsmitted reference range : 0.0 - 0.0 gm/dL. The reference range was not u sed to interpret this result as normal/abnormal . [facility]Free [place]/Free Lambda Ratio 2021-08-03 21:05:04 Test Item Value Reference Range Interpretation Comments FKap/FLam RT (test code = 5566) 1.29 0.26-1.65 [facility]Free [place]/Free Lambda Ratio 2021-08-03 21:05:04 Test Item Value Reference Range Interpretation Comments FKap/FLam RT (test code = 5566) 1.29 0.26-1.65 [facility] CampusFree [place]/Free Lambda Ratio 2021-08-03 21:05:04 Test Item Value Reference Range Interpretation Comments FKap/FLam RT (test code = 5566) 1.29 0.26-1.65 [facility] CampusFree Lambda Light [id number] 21:05:03 Test Item Value Reference Range Interpretation Comments Free Lambda (test code = 5630) 46.13 mg/L 5.71-26.30 H Lab Interpretation (test code = Abnormal 83233-1) [facility] CampusFree Lambda Light [id number] 21:05:03 Test Item Value Reference Range Interpretation Comments Free Lambda (test code = 5630) 46.13 mg/L 5.71-26.30 H Lab Interpretation (test code = Abnormal 22127-0) [facility] CampusFree Lambda Light [id number] 21:05:03 Test Item Value Reference Range Interpretation Comments Free Lambda (test code = 5630) 46.13 mg/L 5.71-26.30 H Lab Interpretation (test code = Abnormal 31003-6) [facility] [place] Light [id number] 21:05:02 Test Item Value Reference Range Interpretation Comments Free [place] (test code = 5629) 59.45 mg/L 3.30-19.40 H Lab Interpretation (test code = Abnormal 47463-1) [facility] [place] Light [id number] 21:05:02 Test Item Value Reference Range Interpretation Comments Free [place] (test code = 5629) 59.45 mg/L 3.30-19.40 H Lab Interpretation (test code = Abnormal 86814-1) [facility]Free [place] Light [id number] 21:05:02 Test Item Value Reference Range Interpretation Comments Free [place] (test code = 5629) 59.45 mg/L 3.30-19.40 H Lab Interpretation (test code = Abnormal 24438-4) [facility] CampusBeta 2 Ndntddnttxmph8099-74-01 21:05:01 Test Item Value Reference Range Interpretation Comments Beta2 Microglob (test code = 5090) 3.0 mg/L 0.8-2.3 H Lab Interpretation (test code = Abnormal 68840-5) [facility] CampusBeta 2 Svawuwiqydlif3532-88-44 21:05:01 Test Item Value Reference Range Interpretation Comments Beta2 Microglob (test code = 5090) 3.0 mg/L 0.8-2.3 H Lab Interpretation (test code = Abnormal 52639-6) [facility] CampusBeta 2 Rbvugtqqrfuzw4532-72-11 21:05:01 Test Item Value Reference Range Interpretation Comments Beta2 Microglob (test code = 5090) 3.0 mg/L 0.8-2.3 H Lab Interpretation (test code = Abnormal 81391-0) [facility] CampusIgM2022-04-26 21:05:00 Test Item Value Reference Range Interpretation Comments IgM (test code = 6023) 13 mg/dL 35-242 L Lab Interpretation (test code = Abnormal 81540-9) [facility] CampusIgM2022-04-26 21:05:00 Test Item Value Reference Range Interpretation Comments IgM (test code = 6023) 13 mg/dL 35-242 L Lab Interpretation (test code = Abnormal 04859-9) [facility] CampusIgM2022-04-26 21:05:00 Test Item Value Reference Range Interpretation Comments IgM (test code = 6023) 13 mg/dL 35-242 L Lab Interpretation (test code = Abnormal 62471-6) [facility] CampusIgG2022-04-26 21:04:59 Test Item Value Reference Range Interpretation Comments IgG (test code = 6001) 807 mg/dL 610-1616 [facility]IgG2022-04-26 21:04:59 Test Item Value Reference Range Interpretation Comments IgG (test code = 6001) 807 mg/dL 610-1616 [facility]IgG2022-04-26 21:04:59 Test Item Value Reference Range Interpretation Comments IgG (test code = 6001) 807 mg/dL 610-1616 [facility] CampusIgA2022-04-26 21:04:58 Test Item Value Reference Range Interpretation Comments IgA (test code = 5992) 217 mg/dL 85-499 [facility]IgA2022-04-26 21:04:58 Test Item Value Reference Range Interpretation Comments IgA (test code = 5992) 217 mg/dL 85-499 [facility] CampusIgA2022-04-26 21:04:58 Test Item Value Reference Range Interpretation Comments IgA (test code = 5992) 217 mg/dL 85-499 [facility] Campus24hr Urine Total Cyolcyo0916-32-77 19:04:35 Test Item Value Reference Range Interpretation Comments UTP (test code = 7921) 6 mg/dL Cauti on is advised when interpreting va lues greater than 55 5 mg/dL.Results r equiring extended diluti on beyond the rubber covering machine operator's recommendedlimi t may not dilute line brittney due to potential ma trix effect.Correlat ion with clinical contex t is recommended. UTP 24 (test code = 180 See_Comment H [Automa jenny message] 7905) The system [employer] generated this result transmitted ref erence range: <=149 mg /24hr. The reference r josette was not used to int erpret this result as normal/abnormal . Lab Interpretation Abnormal (test code = 51135-4) [facility]24hr Urine Total [id number] 19:04:35 Test Item Value Reference Range Interpretation Comments UTP (test code = 7921) 6 mg/dL Cauti on is advised when interpreting va lues greater than 55 5 mg/dL.Results r equiring extended diluti on beyond the rubber covering machine operator's recommendedlimi t may not dilute line brittney due to potential ma trix effect.Correlat ion with clinical contex t is recommended. UTP 24 (test code = 180 See_Comment H [Automa jenny message] 7923) The system [employer] generated this result transmitted ref erence range: <=149 mg /24hr. The reference r josette was not used to int erpret this result as normal/abnormal . Lab Interpretation Abnormal (test code = 97318-0) [facility]24[facility] Urine Total [id number] 19:04:35 Test Item Value Reference Range Interpretation Comments UTP (test code = 7921) 6 mg/dL Cauti on is advised when interpreting va lues greater than 55 5 mg/dL.Results r equiring extended diluti on beyond the rubber covering machine operator's recommendedlimi t may not dilute line brittney due to potential ma trix effect.Correlat ion with clinical contex t is recommended. UTP 24 (test code = 180 See_Comment H [Automa jenny message] 9300) The system [employer] generated this result transmitted ref erence range: <=149 mg /24hr. The reference r josette was not used to int erpret this result as normal/abnormal . Lab Interpretation Abnormal (test code = 94920-9) [facility]07 Test Item Value Reference Range Interpretation Comments Total Cells (test code = 113 97599-9) Neutrophil % (test code 49.0 % 42.0-66.0 The Neutrophil count = 19203-8) includes Bands. Lymphocyte % (test code 42.0 % 24.0-44.0 = 737-7) Monocyte % (test code = 6.0 % 2.0-7.0 744-3) Eosinophil % (test code 2.0 % 1.0-4.0 = 714-6) Basophil % (test code = 1.0 % 0.0-1.0 707-0) Neutrophil Abs (test 2.06 K/uL 1.70-7.30 code = 753-4) Lymphocyte Abs (test 1.76 K/uL 1.00-4.80 code = 732-8) Monocyte Abs (test code 0.25 K/uL 0.08-0.70 = 743-5) Eosinophil Abs (test 0.08 K/uL 0.04-0.40 code = 712-0) Basophil Abs (test code 0.04 K/uL 0.00-0.10 = 705-4) RBC Morph (test code = Present Normal A 6742-1) Ovalocyte (test code = Present Not Present A 774-0) Macrocyte (test code = Present Not Present A 738-5) Slide Comments (test See Note A PLT: Pl atelet code = 5447) morphology norm al Lab Interpretation (test Abnormal code = 99525-4) [facility] 18:32[facility]07 Test Item Value Reference Range Interpretation Comments Total Cells (test code = 113 20982-0) Neutrophil % (test code 49.0 % 42.0-66.0 The Neutrophil count = 46489-8) includes Bands. Lymphocyte % (test code 42.0 % 24.0-44.0 = 737-7) Monocyte % (test code = 6.0 % 2.0-7.0 744-3) Eosinophil % (test code 2.0 % 1.0-4.0 = 714-6) Basophil % (test code = 1.0 % 0.0-1.0 707-0) Neutrophil Abs (test 2.06 K/uL 1.70-7.30 code = 753-4) Lymphocyte Abs (test 1.76 K/uL 1.00-4.80 code = 732-8) Monocyte Abs (test code 0.25 K/uL 0.08-0.70 = 743-5) Eosinophil Abs (test 0.08 K/uL 0.04-0.40 code = 712-0) Basophil Abs (test code 0.04 K/uL 0.00-0.10 = 705-4) RBC Morph (test code = Present Normal A 6742-1) Ovalocyte (test code = Present Not Present A 774-0) Macrocyte (test code = Present Not Present A 738-5) Slide Comments (test See Note A PLT: Pl atelet code = 5447) morphology norm al Lab Interpretation (test Abnormal code = 93463-3) [facility] KrbhghLlyvkekcrvxw7330-36-83 18:32:07 Test Item Value Reference Range Interpretation Comments Total Cells (test code = 113 66117-6) Neutrophil % (test code 49.0 % 42.0-66.0 The Neutrophil count = 49437-6) includes Bands. Lymphocyte % (test code 42.0 % 24.0-44.0 = 737-7) Monocyte % (test code = 6.0 % 2.0-7.0 744-3) Eosinophil % (test code 2.0 % 1.0-4.0 = 714-6) Basophil % (test code = 1.0 % 0.0-1.0 707-0) Neutrophil Abs (test 2.06 K/uL 1.70-7.30 code = 753-4) Lymphocyte Abs (test 1.76 K/uL 1.00-4.80 code = 732-8) Monocyte Abs (test code 0.25 K/uL 0.08-0.70 = 743-5) Eosinophil Abs (test 0.08 K/uL 0.04-0.40 code = 712-0) Basophil Abs (test code 0.04 K/uL 0.00-0.10 = 705-4) RBC Morph (test code = Present Normal A 6742-1) Ovalocyte (test code = Present Not Present A 774-0) Macrocyte (test code = Present Not Present A 738-5) Slide Comments (test See Note A PLT: Pl atelet code = 5447) morphology norm al Lab Interpretation (test Abnormal code = 36372-9) [facility] [place].HNW8513-05-48 18:32:04 Test Item Value Reference Range Interpretation Comments WBC (test code = 4.2 K/uL 4.0-11.0 6690-2) RBC (test code = 789-8) 3.22 See_Comment L [Au tomated message] The system [employer] generated this result transmitted ref erence range: 4.00 - 5 .50 M/uL. The refer ence range was not u sed to interpret this result as normal/abnor mal. Hgb (test code = 718-7) 11.2 See_Comment L [Au tomated message] The system [employer] generated this result transmitted ref erence range: 12.0 - 1 6.0 gm/dL. The refe rence range was not u sed to interpret this result as normal/abnor mal. Hct (test code = 32.1 % 37.0-47.0 L 4544-3) MCV (test code = 787-2) 100 fL 82-98 H MCH (test code = 785-6) 34.8 pg 27.0-31.0 H MCHC (test code = 34.9 See_Comment [Automate d message] 786-4) The system [employer] generated this result transmitted ref erence range: 31.0 - 3 6.0 gm/dL. The refe rence range was not u sed to interpret this result as normal/abnor mal. RDW-SD (test code = 62.6 fL 35.1-46.3 H 58093-5) RDW-CV (test code = 17.1 % 12.0-15.5 H 788-0) Platelet count (test 196 K/uL 140-440 code = 777-3) MPV (test code = 12.9 fL 4.0-10.4 H 32396-5) INRBC (test code = 0.0 % See_Comment The INRBC (instrument 20918-6) NRBC) value ref lects the enumeration of nucleated red b lood cells contained in a 200uL sampleof whole blood analyzed by the instrument. Thi s value maydiffer from the NRBC value repo rted in a manual differential,wh ich is based on a 100 cell differential. [Automated mess age] The system [employer] generated this result transmitted ref erence range: <=0.0. T he reference range was not used to int erpret this result as normal/abnormal . Lab Interpretation Abnormal (test code = 16888-3) [facility] [place].WUB6063-21-18 18:32:04 Test Item Value Reference Range Interpretation Comments WBC (test code = 4.2 K/uL 4.0-11.0 6690-2) RBC (test code = 789-8) 3.22 See_Comment L [Au tomated message] The system [employer] generated this result transmitted ref erence range: 4.00 - 5 .50 M/uL. The refer ence range was not u sed to interpret this result as normal/abnor mal. Hgb (test code = 718-7) 11.2 See_Comment L [Au tomated message] The system [employer] generated this result transmitted ref erence range: 12.0 - 1 6.0 gm/dL. The refe rence range was not u sed to interpret this result as normal/abnor mal. Hct (test code = 32.1 % 37.0-47.0 L 4544-3) MCV (test code = 787-2) 100 fL 82-98 H MCH (test code = 785-6) 34.8 pg 27.0-31.0 H MCHC (test code = 34.9 See_Comment [Automate d message] 786-4) The system [employer] generated this result transmitted ref erence range: 31.0 - 3 6.0 gm/dL. The refe rence range was not u sed to interpret this result as normal/abnor mal. RDW-SD (test code = 62.6 fL 35.1-46.3 H 08106-1) RDW-CV (test code = 17.1 % 12.0-15.5 H 788-0) Platelet count (test 196 K/uL 140-440 code = 777-3) MPV (test code = 12.9 fL 4.0-10.4 H 88758-3) INRBC (test code = 0.0 % See_Comment The INRBC (instrument 20243-3) NRBC) value ref lects the enumeration of nucleated red b lood cells contained in a 200uL sampleof whole blood analyzed by the instrument. Thi s value maydiffer from the NRBC value repo rted in a manual differential,wh ich is based on a 100 cell differential. [Automated mess age] The system [employer] generated this result transmitted ref erence range: <=0.0. T he reference range was not used to int erpret this result as normal/abnormal . Lab Interpretation Abnormal (test code = 09418-0) [facility] [place].JWP6610-84-55 18:32:04 Test Item Value Reference Range Interpretation Comments WBC (test code = 4.2 K/uL 4.0-11.0 6690-2) RBC (test code = 789-8) 3.22 See_Comment L [Au tomated message] The system [employer] generated this result transmitted ref erence range: 4.00 - 5 .50 M/uL. The refer ence range was not u sed to interpret this result as normal/abnor mal. Hgb (test code = 718-7) 11.2 See_Comment L [Au tomated message] The system [employer] generated this result transmitted ref erence range: 12.0 - 1 6.0 gm/dL. The refe rence range was not u sed to interpret this result as normal/abnor mal. Hct (test code = 32.1 % 37.0-47.0 L 4544-3) MCV (test code = 787-2) 100 fL 82-98 H MCH (test code = 785-6) 34.8 pg 27.0-31.0 H MCHC (test code = 34.9 See_Comment [Automate d message] 786-4) The system [employer] generated this result transmitted ref erence range: 31.0 - 3 6.0 gm/dL. The refe rence range was not u sed to interpret this result as normal/abnor mal. RDW-SD (test code = 62.6 fL 35.1-46.3 H 40807-3) RDW-CV (test code = 17.1 % 12.0-15.5 H 788-0) Platelet count (test 196 K/uL 140-440 code = 777-3) MPV (test code = 12.9 fL 4.0-10.4 H 29583-0) INRBC (test code = 0.0 % See_Comment The INRBC (instrument 43317-7) NRBC) value ref lects the enumeration of nucleated red b lood cells contained in a 200uL sampleof whole blood analyzed by the instrument. Thi s value maydiffer from the NRBC value repo rted in a manual differential,wh ich is based on a 100 cell differential. [Automated mess age] The system [employer] generated this result transmitted ref erence range: <=0.0. T he reference range was not used to int erpret this result as normal/abnormal . Lab Interpretation Abnormal (test code = 59605-6) [facility] Hotpos1123-43-32 17:58:21 Test Item Value Reference Range Interpretation Comments Total Volume (test code 3000 See_Comment H [Au tomated = 7650) message] The sy stem which generated this result transmitted reference range : 1,200 - 1,500 m L/24 h. The referenc e range was not u sed to interpret th is result as normal/abnormal . Hrs Collected (test 24 code = 5928) Start Date (test code = 08/02/2021 7382) End Date (test code = 08/03/2021 11080-7) U24 Comment (test code 0735a-0735a = 8547) Lab Interpretation Abnormal (test code = 08386-8) [facility] Rfqutq4690-63-96 17:58:21 Test Item Value Reference Range Interpretation Comments Total Volume (test code 3000 See_Comment H [Au tomated = 7650) message] The sy stem which generated this result transmitted reference range : 1,200 - 1,500 m L/24 h. The referenc e range was not u sed to interpret th is result as normal/abnormal . Hrs Collected (test 24 code = 5928) Start Date (test code = 08/02/20217381) End Date (test code = 08/03/202106568-4) U24 Comment (test code 0735a-0735a = 8547) Lab Interpretation Abnormal (test code = 36733-2) [facility] Ycwnoy7048-28-96 17:58:21 Test Item Value Reference Range Interpretation Comments Total Volume (test code 3000 See_Comment H [Au tomated = 7650) message] The sy stem which generated this result transmitted reference range : 1,200 - 1,500 m L/24 h. The referenc e range was not u sed to interpret th is result as normal/abnormal . Hrs Collected (test 24 code = 5928) Start Date (test code = 08/02/20217381) End Date (test code = 08/03/2021) U24 Comment (test code 0735a-0735a = 8547) Lab Interpretation Abnormal (test code = 07222-0) [facility]ro[facility] Yowsk3318-47-65 16:20:28 Test Item Value Reference Range Interpretation Comments Sodium Lvl (test code = 137 See_Comment [Au tomated message] 6901-2) The system [employer] generated this result transmitted ref erence range: 136 - 14 5 mEq/L. The refe rence range was not u sed to interpret this result as normal/abnor mal. Potassium Lvl (test code 3.5 See_Comment [A utomated message] = 1423-3) The system [employer] generated this result transmitted ref erence range: 3.5 - 5. 1 mEq/L. The refe rence range was not u sed to interpret this result as normal/abnor mal. Chloride (test code = 97 See_Comment L [Auto mated message] ) The system [employer] generated this result transmitted ref erence range: 98 - 107 mEq/L. The refe rence range was not u sed to interpret this result as normal/abnor mal. CO2 (test code = 2027-12) 31 See_Comment H [A utomated message] The system [employer] generated this result transmitted ref erence range: 22 - 29 mEq/L. The reference r josette was not used to interpret this result as normal/abnor mal. Anion Gap (test code = 9 See_Comment [Aut omated message] 87341-2) The system [employer] generated this result transmitted ref erence range: 4 - 14 m Eq/L. The reference r josette was not used to interpret this result as normal/abnor mal. Lab Interpretation (test Abnormal code = 16332-6) [facility] Qrrgr2309-19-08 16:20:28 Test Item Value Reference Range Interpretation Comments Sodium Lvl (test code = 137 See_Comment [Au tomated message] 2951-2) The system [employer] generated this result transmitted ref erence range: 136 - 14 5 mEq/L. The refe rence range was not u sed to interpret this result as normal/abnor mal. Potassium Lvl (test code 3.5 See_Comment [A utomated message] = 2823-3) The system [employer] generated this result transmitted ref erence range: 3.5 - 5. 1 mEq/L. The refe rence range was not u sed to interpret this result as normal/abnor mal. Chloride (test code = 97 See_Comment L [Auto mated message] ) The system [employer] generated this result transmitted ref erence range: 98 - 107 mEq/L. The refe rence range was not u sed to interpret this result as normal/abnor mal. CO2 (test code = 2027-12) 31 See_Comment H [A utomated message] The system [employer] generated this result transmitted ref erence range: 22 - 29 mEq/L. The reference r josette was not used to interpret this result as normal/abnor mal. Anion Gap (test code = 9 See_Comment [Aut omated message] 88931-3) The system [employer] generated this result transmitted ref erence range: 4 - 14 m Eq/L. The reference r josette was not used to interpret this result as normal/abnor mal. Lab Interpretation (test Abnormal code = 73715-0) [facility] Kguvd6478-56-16 16:20:28 Test Item Value Reference Range Interpretation Comments Sodium Lvl (test code = 137 See_Comment [Au tomated message] 3301-2) The system [employer] generated this result transmitted ref erence range: 136 - 14 5 mEq/L. The refe rence range was not u sed to interpret this result as normal/abnor mal. Potassium Lvl (test code 3.5 See_Comment [A utomated message] = 2393-3) The system [employer] generated this result transmitted ref erence range: 3.5 - 5. 1 mEq/L. The refe rence range was not u sed to interpret this result as normal/abnor mal. Chloride (test code = 97 See_Comment L [Auto mated message] 0) The system [employer] generated this result transmitted ref erence range: 98 - 107 mEq/L. The refe rence range was not u sed to interpret this result as normal/abnor mal. CO2 (test code = 2027-12) 31 See_Comment H [A utomated message] The system [employer] generated this result transmitted ref erence range: 22 - 29 mEq/L. The reference r josette was not used to interpret this result as normal/abnor mal. Anion Gap (test code = 9 See_Comment [Aut omated message] 07419-4) The system [employer] generated this result transmitted ref erence range: 4 - 14 m Eq/L. The reference r josette was not used to interpret this result as normal/abnor mal. Lab Interpretation (test Abnormal code = 03990-1) [facility] CampusFractionated Cypzlcyil4234-74-26 16:20:27 Test Item Value Reference Range Interpretation Comments Bili Total (test 0.6 mg/dL See_Comment Indocyanine Green (ICG) code = 1975-2) may cause fal sely elevated biliru bin results. Total and direct bilirubin must not be measured from s amples containing indo cyanine green. False el evation of total bilirubin can be seen in patient s with IgG concentrations above 28 g/L. [Automated message] The system [employer] generated this result transmitted ref erence range: <=1.2. T he reference range was not used to interpr et this result as normal/abnormal . Bili Direct (test 0.2 mg/dL See_Comment Indocyanin e Green (ICG) code = 1967-10) may cause fal sely elevated biliru bin results. Total and direct bilirubin must not be measured from s amples containing indo cyanine green. [Automat ed message] The sy stem which generated this result transmitted ref erence range: <=0.3. T he reference range was not used to interpr et this result as normal/abnormal . Bili Indirect (test 0.4 mg/dL 0.0-0.9 code = 1970-04) [facility] Cthxklcby7061-33-14 16:20:27 Test Item Value Reference Range Interpretation Comments Bili Total (test 0.6 mg/dL See_Comment Indocyanine Green (ICG) code = 1974-05) may cause fal sely elevated biliru bin results. Total and direct bilirubin must not be measured from s amples containing indo cyanine green. False el evation of total bilirubin can be seen in patient s with IgG concentrations above 28 g/L. [Automated message] The system [employer] generated this result transmitted ref erence range: <=1.2. T he reference range was not used to interpr et this result as normal/abnormal . Bili Direct (test 0.2 mg/dL See_Comment Indocyanin e Green (ICG) code = 1967-10) may cause fal sely elevated biliru bin results. Total and direct bilirubin must not be measured from s amples containing indo cyanine green. [Automat ed message] The sy stem which generated this result transmitted ref erence range: <=0.3. T he reference range was not used to interpr et this result as normal/abnormal . Bili Indirect (test 0.4 mg/dL 0.0-0.9 code = 1970-04) [facility] Uancygoap0153-09-26 16:20:27 Test Item Value Reference Range Interpretation Comments Bili Total (test 0.6 mg/dL See_Comment Indocyanine Green (ICG) code = 1974-05) may cause fal sely elevated biliru bin results. Total and direct bilirubin must not be measured from s amples containing indo cyanine green. False el evation of total bilirubin can be seen in patient s with IgG concentrations above 28 g/L. [Automated message] The system [employer] generated this result transmitted ref erence range: <=1.2. T he reference range was not used to interpr et this result as normal/abnormal . Bili Direct (test 0.2 mg/dL See_Comment Indocyanin e Green (ICG) code = 1967-10) may cause fal sely elevated biliru bin results. Total and direct bilirubin must not be measured from s amples containing indo cyanine green. [Automat ed message] The sy stem which generated this result transmitted ref erence range: <=0.3. T he reference range was not used to interpr et this result as normal/abnormal . Bili Indirect (test 0.4 mg/dL 0.0-0.9 code = 1970-04) [facility] [id number] 16:20:26 Test Item Value Reference Range Interpretation Comments Uric Acid (test code = 3084-1) 4.1 mg/dL 2.4-5.7 [facility] [id number] 16:20:26 Test Item Value Reference Range Interpretation Comments Uric Acid (test code = 3084-1) 4.1 mg/dL 2.4-5.7 [facility] [id number] 16:20:26 Test Item Value Reference Range Interpretation Comments Uric Acid (test code = 3084-1) 4.1 mg/dL 2.4-5.7 [facility] Tjopyml4348-04-06 16:20:25 Test Item Value Reference Range Interpretation Comments Total Protein (test code = 2885-2) 6.9 g/dL 6.4-8.3 [facility] Yfvlhbo1570-53-47 16:20:25 Test Item Value Reference Range Interpretation Comments Total Protein (test code = 2885-2) 6.9 g/dL 6.4-8.3 [facility] Endnrrg5083-37-43 16:20:25 Test Item Value Reference Range Interpretation Comments Total Protein (test code = 2885-2) 6.9 g/dL 6.4-8.3 [facility]Phosph[facility] Qnvdf3685-01-12 16:20:24 Test Item Value Reference Range Interpretation Comments Phosphorus (test code = 2777-1) 3.3 mg/dL 2.5-4.5 [facility] [id number] 16:20:24 Test Item Value Reference Range Interpretation Comments Phosphorus (test code = 2777-1) 3.3 mg/dL 2.5-4.5 [facility] Edhka5926-82-97 16:20:24 Test Item Value Reference Range Interpretation Comments Phosphorus (test code = 2777-1) 3.3 mg/dL 2.5-4.5 [facility] Pxybv3342-19-90 16:20:23 Test Item Value Reference Range Interpretation Comments Calcium Lvl (test code = 69668-1) 10.1 mg/dL 8.4-10.2 [facility] Cbgws0587-29-15 16:20:23 Test Item Value Reference Range Interpretation Comments Calcium Lvl (test code = 46858-9) 10.1 mg/dL 8.4-10.2 [facility] Qbsoa1485-00-51 16:20:23 Test Item Value Reference Range Interpretation Comments Calcium Lvl (test code = 40184-4) 10.1 mg/dL 8.4-10.2 [facility]ALT2022-[facility] 16:20:22 Test Item Value Reference Range Interpretation Comments ALT (test code = 14 U/L See_Comment [Automated message] The 1741-09) system which ge nerated this result transmit jenny reference range : <=33. The reference range was not used to interpr et this result as lani l/abnormal. [facility]ALT20[facility] 16:20:22 Test Item Value Reference Range Interpretation Comments ALT (test code = 14 U/L See_Comment [Automated message] The 1741-09) system which ge nerated this result transmit jenny reference range : <=33. The reference range was not used to interpr et this result as lani l/abnormal. [facility]ALT20[facility] 16:20:22 Test Item Value Reference Range Interpretation Comments ALT (test code = 14 U/L See_Comment [Automated message] The 1741-09) system which ge nerated this result transmit jenny reference range : <=33. The reference range was not used to interpr et this result as lani l/abnormal. [facility]BUN20[facility] 16:20:21 Test Item Value Reference Range Interpretation Comments BUN (test code = 3094-0) 21 mg/dL - [facility]2022-[facility] 16:20:21 Test Item Value Reference Range Interpretation Comments BUN (test code = 3094-0) 21 mg/dL 09-30 [facility]2022-[facility] 16:20:21 Test Item Value Reference Range Interpretation Comments BUN (test code = 3094-0) 21 mg/dL - [facility] CampusGlucose [id number] 16:20:20 Test Item Value Reference Range Interpretation Comments Glucose Level (test code 110 mg/dL 70-99 H Eff ective 11/04/15, = 2345-7) the glucose reference inter vals have been updat ed based on [place] Diabetes [employer] ation guidelines (Standards of Medical Care in Diabetes 2016. Diabetes Care 2 016; 39: S13-S22).Fa sting blood glucose:Normal: 70-99 mg/dLImpa ired fasting glucose (increased risk for diabetes or pre-diabetes): 100-125 mg/dLDiabetes mellitus: >/=12 6 mg/dL Random bl ood glucose:Normal: 70-199 mg/dLNot e: Random glucose >100 mg/dL is associ ated with increased risk for diabetes Lab Interpretation (test Abnormal code = 68000-4) [facility]Gl[facility] Lcepg5101-14-69 16:20:20 Test Item Value Reference Range Interpretation Comments Glucose Level (test code 110 mg/dL 70-99 H Eff ective 11/04/15, = 2345-7) the glucose reference inter vals have been updat ed based on [place] [employer] ation guidelines (Standards of Medical Care in Diabetes 2016. Diabetes Care 2 016; 39: S13-S22).Fa sting blood glucose:Normal: 70-99 mg/dLImpa ired fasting glucose (increased risk for diabetes or pre-diabetes): 100-125 mg/dLDiabetes mellitus: >/=12 6 mg/dL Random bl ood glucose:Normal: 70-199 mg/dLNot e: Random glucose >100 mg/dL is associ ated with increased risk for diabetes Lab Interpretation (test Abnormal code = 04538-8) [facility] CampusGl[facility] Rxujv5477-70-76 16:20:20 Test Item Value Reference Range Interpretation Comments Glucose Level (test code 110 mg/dL 70-99 H Eff ective 11/04/15, = 2345-7) the glucose reference inter vals have been updat ed based on [place] Diabetes [employer] ation guidelines (Standards of Medical Care in Diabetes 2016. Diabetes Care 2 016; 39: S13-S22).Fa sting blood glucose:Normal: 70-99 mg/dLImpa ired fasting glucose (increased risk for diabetes or pre-diabetes): 100-125 mg/dLDiabetes mellitus: >/=12 6 mg/dL Random bl ood glucose:Normal: 70-199 mg/dLNot e: Random glucose >100 mg/dL is associ ated with increased risk for diabetes Lab Interpretation (test Abnormal code = 50386-7) [facility] CampusGlomerular Filtration Rate 2021-08-03 16:20:18 Test Item Value Reference Range Interpretation Comments eGFR-AA (test code = 56 See_Comment L Normal eGFR: >= 60 04781-9) mL/min/1.73 m2N ote: The eGFR is kena [...] estima jenny GFR. Stage Desc ription GFR mL/min/1.73 m21 Normal or high GFR >=902 Mildly de creased GFR 60-893a Mil dly to moderately decr eased GFR 45-593b Mod erately to severely dec reased GFR 30-444 Kayleigh rely decreased GFR 1 5-295 Kidney failure <15 [Automated mess age] The system [employer] generated this result transmitted ref erence range: >=60 mL/min/1.73 sq. m. The reference range was not used to int erpret this result as normal/abnormal . eGFR-YASMIN (test code = 49 See_Comment L Normal eGFR: >= 60 99659-7) mL/min/1.73 m2N ote: The eGFR is kena [...] estima jenny GFR. Stage Desc ription GFR mL/min/1.73 m21 Normal or high GFR >=902 Mildly de creased GFR 60-893a Mil dly to moderately decr eased GFR 45-593b Mod erately to severely dec reased GFR 30-444 Kayleigh rely decreased GFR 1 5-295 Kidney failure <15 [Automated mess age] The system [employer] generated this result transmitted ref erence range: >=60 mL/min/1.73 sq. m. The reference range was not used to int erpret this result as normal/abnormal . Lab Interpretation Abnormal (test code = 96267-7) [facility] [place]onGlomerular Filtration Rate 2021-08-03 16:20:18 Test Item Value Reference Range Interpretation Comments eGFR-AA (test code = 56 See_Comment L Normal eGFR: >= 60 68357-3) mL/min/1.73 m2N ote: The eGFR is kena [...] estima jenny GFR. Stage Desc ription GFR mL/min/1.73 m21 Normal or high GFR >=902 Mildly de creased GFR 60-893a Mil dly to moderately decr eased GFR 45-593b Mod erately to severely dec reased GFR 30-444 Kayleigh rely decreased GFR 1 5-295 Kidney failure <15 [Automated mess age] The system [employer] generated this result transmitted ref erence range: >=60 mL/min/1.73 sq. m. The reference range was not used to int erpret this result as normal/abnormal . eGFR-YASMIN (test code = 49 See_Comment L Normal eGFR: >= 60 67343-7) mL/min/1.73 m2N ote: The eGFR is kena [...] estima jenny GFR. Stage Desc ription GFR mL/min/1.73 m21 Normal or high GFR >=902 Mildly de creased GFR 60-893a Mil dly to moderately decr eased GFR 45-593b Mod erately to severely dec reased GFR 30-444 Kayleigh rely decreased GFR 1 5-295 Kidney failure <15 [Automated mess age] The system [employer] generated this result transmitted ref erence range: >=60 mL/min/1.73 sq. m. The reference range was not used to int erpret this result as normal/abnormal . Lab Interpretation Abnormal (test code = 10652-0) [facility] [place]onGlomerular Filtration Rate 2021-08-03 16:20:18 Test Item Value Reference Range Interpretation Comments eGFR-AA (test code = 56 See_Comment L Normal eGFR: >= 60 87396-6) mL/min/1.73 m2N ote: The eGFR is kena [...] estima jenny GFR. Stage Desc ription GFR mL/min/1.73 m21 Normal or high GFR >=902 Mildly de creased GFR 60-893a Mil dly to moderately decr eased GFR 45-593b Mod erately to severely dec reased GFR 30-444 Kayleigh rely decreased GFR 1 5-295 Kidney failure <15 [Automated mess age] The system [employer] generated this result transmitted ref erence range: >=60 mL/min/1.73 sq. m. The reference range was not used to int erpret this result as normal/abnormal . eGFR-YASMIN (test code = 49 See_Comment L Normal eGFR: >= 60 93228-1) mL/min/1.73 m2N ote: The eGFR is kena [...] estima jenny GFR. Stage Desc ription GFR mL/min/1.73 m21 Normal or high GFR >=902 Mildly de creased GFR 60-893a Mil dly to moderately decr eased GFR 45-593b Mod erately to severely dec reased GFR 30-444 Kayleigh rely decreased GFR 1 5-295 Kidney failure <15 [Automated mess age] The system [employer] generated this result transmitted ref erence range: >=60 mL/min/1.73 sq. m. The reference range was not used to int erpret this result as normal/abnormal . Lab Interpretation Abnormal (test code = 17966-7) [facility] [id number] 16:20:17 Test Item Value Reference Range Interpretation Comments Magnesium (test code = 39681-1) 1.7 mg/dL 1.6-2.6 [facility] [id number] 16:20:17 Test Item Value Reference Range Interpretation Comments Magnesium (test code = 33966-6) 1.7 mg/dL 1.6-2.6 [facility] [id number] 16:20:17 Test Item Value Reference Range Interpretation Comments Magnesium (test code = 90912-6) 1.7 mg/dL 1.6-2.6 [facility]LDH2022-[facility] 16:20:16 Test Item Value Reference Range Interpretation Comments LDH (test code = 128 U/L 135-214 L Results gre ater than 78529-0) 1651 U/L may no t be reliable due to matrix effect w ith extended diluti on as it exceeds the rubber covering machine operator's recommended diallo it. Caution should be exercised when interpreting diaz ch values and done in conjunction wit h clinical contex t. Lab Interpretation (test Abnormal code = 98645-4) [facility] 16:20:16 Test Item Value Reference Range Interpretation Comments LDH (test code = 128 U/L 135-214 L Results gre ater than 88363-5) 1651 U/L may no t be reliable due to matrix effect w ith extended diluti on as it exceeds the rubber covering machine operator's recommended diallo it. Caution should be exercised when interpreting diaz ch values and done in conjunction wit clinical contex t. Lab Interpretation (test Abnormal code = 48946-7) [facility] 16:20:16 Test Item Value Reference Range Interpretation Comments LDH (test code = 128 U/L 135-214 L Results gre ater than 76448-2) 1651 U/L may no t be reliable due to matrix effect w ith extended diluti on as it exceeds the rubber covering machine operator's recommended diallo it. Caution should be exercised when interpreting diaz ch values and done in conjunction wit h clinical contex t. Lab Interpretation (test Abnormal code = 07899-1) [facility] CampusAlk[facility] [id number] 16:20:15 Test Item Value Reference Range Interpretation Comments Alk Phos (test code = 6768-6) 73 U/L 35-104 [facility]Al[facility] [id number] 16:20:15 Test Item Value Reference Range Interpretation Comments Alk Phos (test code = 6768-6) 73 U/L 35-104 [facility] CampusAl[facility] [id number] 16:20:15 Test Item Value Reference Range Interpretation Comments Alk Phos (test code = 6768-6) 73 U/L 35-104 [facility] CampusAlbum[facility] [id number] 16:20:14 Test Item Value Reference Range Interpretation Comments Albumin Lvl (test code 4.3 See_Comment [Aut omated message] The = 8028) system which ge nerated this result tra nsmitted reference range : 3.5 - 5.2 gm/dL. The refe rence range was not used to interpret this result as normal/abnormal . [facility] CampusAlbum[facility] [id number] 16:20:14 Test Item Value Reference Range Interpretation Comments Albumin Lvl (test code 4.3 See_Comment [Aut omated message] The = ) system which ge nerated this result tra nsmitted reference range : 3.5 - 5.2 gm/dL. The refe rence range was not used to interpret this result as normal/abnormal . [facility] CampusAlbum[facility] [id number] 16:20:14 Test Item Value Reference Range Interpretation Comments Albumin Lvl (test code 4.3 See_Comment [Aut omated message] The = 2677) system which ge nerated this result tra nsmitted reference range : 3.5 - 5.2 gm/dL. The refe rence range was not used to interpret this result as normal/abnormal . [facility] CampusAspartate Aminotransferase 2021-08-03 16:20:13 Test Item Value Reference Range Interpretation Comments AST (test code = 15 U/L See_Comment [Automated message] The 1919-11) system which ge nerated this result transmit jenny reference range : <=32. The reference range was not used to interpr et this result as lani l/abnormal. [facility] CampusAspartate Aminotransferase 2021-08-03 16:20:13 Test Item Value Reference Range Interpretation Comments AST (test code = 15 U/L See_Comment [Automated message] The 1919-11) system which ge nerated this result transmit jenny reference range : <=32. The reference range was not used to interpr et this result as lani l/abnormal. [facility] CampusAspartate Aminotransferase 2021-08-03 16:20:13 Test Item Value Reference Range Interpretation Comments AST (test code = 15 U/L See_Comment [Automated message] The 1919-11) system which ge nerated this result transmit jenny reference range : <=32. The reference range was not used to interpr et this result as lani l/abnormal. [facility].Serum [id number] 16:20:11 Test Item Value Reference Range Interpretation Comments Creatinine (test code = 2160-0) 1.13 mg/dL 0.51-0.95 H Lab Interpretation (test code = Abnormal 42785-0) [facility].Serum [id number] 16:20:11 Test Item Value Reference Range Interpretation Comments Creatinine (test code = 2160-0) 1.13 mg/dL 0.51-0.95 H Lab Interpretation (test code = Abnormal 21250-7) [facility].Serum [id number] 16:20:11 Test Item Value Reference Range Interpretation Comments Creatinine (test code = 2160-0) 1.13 mg/dL 0.51-0.95 H Lab Interpretation (test code = Abnormal 28389-4) [facility] CampusUrine Prot Electrophoresis Path [id number] 19:21:10U ProE Path IntThe follow-up urine protein electrophoretic pattern shows no definitive evidence of aBence-Liang protein peak.If a Bence-Liang proteinuria is suspected clinically, serum free light chain and urine immunofixation studies are recommended. [facility]ENTERUnB[facility] PflugervilleUrine Prot Electrophoresis Path [id number] 19:21:10U ProE Path IntThe follow-up urine protein electrophoretic pattern shows no definitive evidence of aBence-Liang protein peak.If a Bence-Liang proteinuria is suspected clinically, serum free light chain and urine immunofixation studies are recommended. [facility]ENTERUnB[facility] [place]ugervilleUrine Prot Electrophoresis Path [id number] 19:21:10U ProE Path IntThe follow-up urine protein electrophoretic pattern shows no definitive evidence of aBence-Liang protein peak.If a Bence-Liang proteinuria is suspected clinically, serum free light chain and urine immunofixation studies are recommended. [facility]ENTERUnB[facility] – PflugervilleUrine EDMAR Path Review 2021-02-05 19:21:09 Test Item Value Reference Range Interpretation Comments UIFE Path The follow-up urine Int (test protein code = immunofixation MARIE CORTEZ MD, 7917) electrophoretic PhD [id number] tated by: patterns obtained MARIE Huntley MD, PhD with the use of 25028Wptvxpv d antisera against IgG, Date/T barb: 02.05.2021 IgA, IgM, bound and 14:21 PM CDT free [place] and Lambda Transc ribed Date/Time: light chain proteins 2 021 14:21 PM show no definitive CDTElectr onically evidence of a Signed By: BRENNA POTTS Bence-Liang [place] , [place] [id number] on band. 02.05.2021 14:2 1 PM [facility] CampusU[facility] EDMAR Path [id number] 19:21:09 Test Item Value Reference Range Interpretation Comments UIFE Path The follow-up urine Int (test protein code = immunofixation MARIE CORTEZ MD, 7917) electrophoretic PhD [id number] tated by: patterns obtained MARIE Huntley MD, PhD [place] the [place] of 584[address]Mfbgjdw d antisera against IgG, Date/T barb: 02.05.2021 IgA, IgM, bound and 14:21 PM CDT free [place] and Lambda Transc ribed Date/Time: light chain proteins 021 14:21 PM show no definitive CDTElectr onically evidence of a Signed By: [place] [id number] on band. 02.05.2021 14:2 1 PM [facility] CampusU[facility] EDMAR Path [id number] 19:21:09 Test Item Value Reference Range Interpretation Comments UIFE Path The follow-up urine Int (test protein code = immunofixation MARIE CORTEZ MD, 7917) electrophoretic PhD [id number] tated by: patterns obtained MARIE Huntley MD, PhD with the use of 16610Dffufky d antisera against IgG, Date/T barb: 02.05.2021 IgA, IgM, bound and 14:21 PM CDT free [place] and Lambda Transc ribed Date/Time: light chain proteins 021 14:21 PM show no definitive CDTElectr onically evidence of a Signed By: [place] [id number] on band. 02.05.2021 14:2 1 PM [facility] Campus[facility] Path [id number] 20:33:58 EDMAR Path IntThe follow-up serum protein immunofixation electrophoretic patterns obtained with the use of antisera against IgG, IgA, IgM, bound [place] and bound Lambda light chain proteins currently suggest the presence of an indistinct IgG kappa band in the gamma region but which has a much more anodicmigration compared to the patient's original M-protein.The significance of such a finding is uncertain at this time. Clinical correlation and close follow-up studies are recommended. [facility]ENTERUnB[facility] PflugervilleIFE Path [id number] 20:33:58IFE Path IntThe follow-up serum protein immunofixation electrophoretic patterns obtained with the use of antisera against IgG, IgA, IgM, bound [place] and bound Lambda light chain proteins currently suggest the presence of an indistinct IgG kappa band in the gamma region but which has a much more anodicmigration compared to the patient's original M-protein.The significance of such a finding is uncertain at this time. Clinical correlation and close follow-up studies are recommended. [facility]ENTERUnB[facility] PflugervilleIFE Path Review 2021-02-04 20:33:58IFE Path IntThe follow-up serum protein immunofixation electrophoretic patterns obtained with the use of antisera against IgG, IgA, IgM, bound [place] and bound Lambda light chain proteins currently suggest the presence of an indistinct IgG kappa band in the gamma region but which has a much more anodicmigration compared to the patient's original M-protein.The significance of such a finding is uncertain at this time. Clinical correlation and close follow-up studies are recommended. [facility] MarshallProtein Electrophoresis Path Review 2021-02-04 20:33:56SPE Path InterpThe follow-up serum protein electrophoretic pattern shows irregularities of the curvein the gamma region. If a paraproteinemia is suspected clinically, serum free light chain studies, serum protein EDMAR studies, serum immunoglobulin quantitation and urine Bence-Liang protein studies arerecommended. [facility]ENTERUnB[facility] – [place]ervilleProtein Electrophoresis Path [id number] 20:33:56 SPE Path InterpThe follow-up serum protein electrophoretic pattern shows irregularities of the curvein the gamma region. If a paraproteinemia is suspected clinically, serum free light chain studies, serum protein EDMAR studies, serum immunoglobulin quantitation and urine Bence-Liang protein studies are recommended. [facility]Protein Electrophoresis Path [id number] 20:33:56SPE Path InterpThe follow-up serum protein electrophoretic pattern shows irregularities of the curvein the gamma region. If a paraproteinemia is suspected clinically, serum free light chain studies, serum protein EDMAR studies, serum immunoglobulin quantitation and urine Bence-Liang protein studies arerecommended. [facility]ENTERUnMethodist [facility]field Medical CenterARS-CoV-2 (COVID-19) RNA [Presence] in Respiratory specimen by YASMIN with probe detection 2020-08-25 15:18:27 Test Item Value Reference Range Interpretation Comments SARS-CoV-2 (COVID-19) RNA Not detected Not-Detected [Presence] in Respiratory specimen by YASMIN with probe detection (test code = 34582-4) Whether patient is employed in a healthcare setting (test code = 16035-2) Whether the patient has symptoms related to condition of interest (test code = 62177-2) Patient was hospitalized because of this condition (test code = 27774-2) Whether the patient was admitted to intensive care unit (ICU) for condition of interest (test code = 86465-3) Whether patient resides in a congregate care setting (test code = 06295-2) MOE BELTRE
[2022-04-18] MEDS ORDERED: NA CHLORIDE 0.9% 1,000 ML ONE (16:37)
[2022-04-18] MEDS ORDERED: ONDANSETRON 4 MG/2 ML VIAL IV PRN (16:40)
[2022-04-18] MEDS ORDERED: ACETAMINOPHEN 500 MG TAB PO PRN (16:40)
--- NOTE | 2022-04-18 16:40 | EDPHYS ---
Physician Documentation [facility] Name: Lindsey Peter Age: 71 yrs Sex: Female : 1950 Arrival Date: 04/18/2022 Time: 15:26 Bed 15 Private MD: ED Physician Rafa Gibson HPI: 04/18 16:47 This 71 yrs old Female presents to ER via Wheelchair with complaints of snw Breathing Difficulty. 16:47 The patient has shortness of breath at rest. Onset: The symptoms/episode began/occurred snw acutely. Duration: The symptoms are continuous, and are steadily getting worse. Associated signs and symptoms: Pertinent positives: non-productive cough, weakness. Severity of symptoms: At their worst the symptoms were moderate in the emergency department the symptoms are unchanged despite home interventions. The patient has not experienced similar symptoms in the past. The patient has been recently seen by a physician: as noted. bone marrow transplant in 2018. Historical: - Allergies: 15:44 No Known Allergies; iw - PMHx: 15:44 CVA; High Cholesterol; Hypertension; meningitis; multiple myeloma; Myocardial iw infarction; ROS: 16:45 Eyes: Negative for injury, pain, redness, and discharge, ENT: Negative for injury, snw pain, and discharge, Neck: Negative for injury, pain, and swelling, Cardiovascular: Negative for chest pain, palpitations, and edema. 16:45 Abdomen/GI: Negative for abdominal pain, nausea, vomiting, diarrhea, and constipation, Back: Negative for injury and pain, : Negative for injury, bleeding, discharge, and swelling, MS/Extremity: Negative for injury and deformity, Skin: Negative for injury, rash, and discoloration, Neuro: Negative for headache, weakness, numbness, tingling, and seizure, Psych: Negative for depression, anxiety, suicide ideation, homicidal ideation, and hallucinations. 16:45 Constitutional: Positive for body aches, fatigue, malaise. 16:45 Respiratory: Positive for shortness of breath, at rest. Exam: 16:18 Head/Face: Normocephalic, atraumatic. Eyes: Pupils equal round and reactive to light, snw extra-ocular motions intact. Lids and lashes normal. Conjunctiva and sclera are non-icteric and not injected. Cornea within normal limits. Periorbital areas with no swelling, redness, or edema. ENT: Nares patent. No nasal discharge, no septal abnormalities noted. Tympanic membranes are normal and external auditory canals are clear. Oropharynx with no redness, swelling, or masses, exudates, or evidence of obstruction, uvula midline. Mucous membranes moist. Neck: Trachea midline, no thyromegaly or masses palpated, and no cervical lymphadenopathy. Supple, full range of motion without nuchal rigidity, or vertebral point tenderness. No Meningismus. Chest/axilla: Normal chest wall appearance and motion. Nontender with no deformity. No lesions are appreciated. 16:18 Abdomen/GI: Soft, non-tender, with normal bowel sounds. No distension or tympany. No guarding or rebound. No evidence of tenderness throughout. Back: No spinal tenderness. No costovertebral tenderness. Full range of motion. Skin: Warm, dry with normal turgor. Normal color with no rashes, no lesions, and no evidence of cellulitis. MS/ Extremity: Pulses equal, no cyanosis. Neurovascular intact. Full, normal range of motion. Neuro: Awake and alert, GCS 15, oriented to person, place, time, and situation. Cranial nerves II-XII grossly intact. Motor strength 5/5 in all extremities. Sensory grossly intact. Cerebellar exam normal. Normal gait. 16:18 Constitutional: The patient appears alert, awake, frail, uncomfortable. 16:18 Cardiovascular: Rate: normal, Rhythm: regular. 16:18 Respiratory: the patient does not display signs of respiratory distress, Respirations: shallow respirations, tachypnea, Breath sounds: rhonchi, are located in both bases. Vital Signs: 15:41 BP 78 / 44; Pulse 83; Resp 18; Temp 98.2; Pulse Ox 92% on R/A; iw 17:15 BP 107 / 53; Pulse 72; Resp 16; Pulse Ox 100% ; ss MDM: 15:46 Patient medically screened. snw 16:05 Data reviewed: diagnostic data from outside facility, pt went to [facility] yesterday, neg snw strep, flu, covid, CXR shows LLL pneumonia. Pt rec'd Rocephin, zmax, ivf. Sent home to f/u. Pt used to see Dr. Clark, who retired. Comes to ED today with increased SOB, blood pressure on arrival 78/44. Consideration of Admission/Observation spoke with Hospitalist M[employer] to admit. 16:40 Management of patient was discussed with the following: Hospitalist: CAROLE Will for snw Dr. Gomez. External Records Reviewed: W/u from [place] yesterday. CXR = "Patchy left lower lobe airspace opacities concerning for focal pneumonia". WBC 3.8, H/H 11.7/33.7, PLT 121. Creat 1.6, BUN 21. 17:09 Antibiotic administration: post draw for Blood Cultures. Management of patient was snw discussed with the following: Hospitalist: Dr. Gomez, ANC 1389, WBC down from 3.2 to 1.7 today. 04/18 16:05 Order name: Procalcitonin; Complete Time: 18:08 snw 04/18 16:05 Order name: Blood Culture Adult (2); Complete Time: 11:50 snw 04/18 16:05 Order name: CMP; Complete Time: 17:24 snw 04/18 16:05 Order name: CBC with Diff; Complete Time: 17:08 snw 04/18 16:05 Order name: TS; Complete Time: 17:51 snw 04/18 16:05 Order name: TSH; Complete Time: 17:24 snw 04/18 16:47 Order name: CBC with Automated Diff EDMS 04/18 16:47 Order name: CBC with Automated Diff; Complete Time: 11:50 EDMS 04/18 16:47 Order name: Comprehensive Metabolic Panel EDMS 04/18 16:47 Order name: Comprehensive Metabolic Panel; Complete Time: 11:50 EDMS 04/18 16:47 Order name: Lactate w/ 2H reflex if indic. EDMS 04/18 16:47 Order name: Lactate w/ 2H reflex if indic.; Complete Time: 11:50 EDMS 04/18 16:47 Order name: Lipid Profile EDMS 04/18 16:47 Order name: Lipid Profile; Complete Time: 11:50 EDMS 04/18 16:47 Order name: Magnesium EDMS 04/18 16:47 Order name: Magnesium; Complete Time: 11:50 EDMS 04/18 16:47 Order name: NT PRO-BNP EDMS 04/18 16:47 Order name: NT PRO-BNP; Complete Time: 11:50 EDMS 04/18 16:47 Order name: Phosphorus EDMS 04/18 16:47 Order name: Phosphorus; Complete Time: 11:50 EDMS 04/18 16:47 Order name: Sputum Culture EDMS 04/18 16:47 Order name: Sputum Culture EDMS 04/18 16:47 Order name: Procalcitonin; Complete Time: 11:50 EDMS 04/18 16:49 Order name: Cortisol; Complete Time: 11:50 EDMS 04/18 16:50 Order name: Ferritin; Complete Time: 11:50 EDMS 04/18 16:50 Order name: Iron; Complete Time: 11:50 EDMS 04/18 16:50 Order name: T4 Free; Complete Time: 11:50 EDMS 04/18 16:50 Order name: Vitamin B12 Level; Complete Time: 11:50 EDMS 04/18 16:50 Order name: Folic Acid, RBC EDMS 04/18 16:50 Order name: Folic Acid, RBC EDMS 04/18 16:05 Order name: Oxygen Per Protocol; Complete Time: 16:32 snw 04/18 16:47 Order name: CONS Physician Consult EDMS 04/18 16:47 Order name: CONS Physician Consult EDMS 04/18 16:47 Order name: Heart Healthy EDMS 04/18 16:49 Order name: Chest Angio EDMS 04/18 16:49 Order name: Chest Angio; Complete Time: 11:50 EDMS 04/18 16:50 Order name: NT PRO-BNP; Complete Time: 11:50 EDMS 04/18 17:52 Order name: ABO/RH no charge; Complete Time: 17:58 EDMS 04/19 00:27 Order name: COVID-19/FLU A+B 2 04/19 01:30 Order name: COVID-19/FLU A+B; Complete Time: 11:50 EDMS Administered Medications: 16:38 Drug: NS 0.9% 1000 ml Route: IV; Rate: 75 ml/hr; Site: right antecubital; ko1 17:35 Drug: NS 0.9% 500 ml Route: IV; Rate: bolus; Site: right antecubital; ko1 17:41 Drug: Potassium Chloride 20 mEq Route: IV; Rate: calculated rate; Site: right ko1 antecubital; 17:41 Drug: Potassium Chloride 40 mEq Route: PO; ko1 17:42 Drug: Rocephin (cefTRIAXone) 1 grams Route: IV; Rate: calculated rate; Site: right ko1 antecubital; 18:18 Not Given (Duplicate Order): vancoMYCIN 1 grams IVPB once over 2 hrs ko1 Disposition Summary: 04/18/22 16:39 Hospitalization Ordered Hospitalization Status: Inpatient Admission snw Provider: Donna Gomez snw Condition: Fair snw Problem: an acute exacerbation snw Symptoms: have worsened snw Bed/Room Type: Standard snw Location: Telemetry/MedSurg (Inpatient)(04/19/22 07:08) Room Assignment: 403(04/19/22 07:08) Diagnosis - Pneumonia, unspecified organism snw - Hypotension, unspecified snw Forms: - Medication Reconciliation Form snw - SBAR form snw Addendum: 04/22/2022 13:28 Co-signature as Attending Physician, Rafa Gibson MD I agree with the assessment and c coppola plan of care. Signatures: Dispatcher [employer] EDMS Rafa Gibson MD MD cha Waters, Shelly, VETERINARY VIRUS SERUM INSPECTOR-C VETERINARY VIRUS SERUM INSPECTOR-Csnw Hanh Roman, RN RN Rebecca Harrell RN RN ss Edita Jones RN RN cg Lilo Devlin, RN RN ko1 Corrections: (The following items were deleted from the chart) 04/18 18:55 16:39 Telemetry/MedSurg (Inpatient) snw cg 18:55 16:39 snw cg 04/19 07:08 04/18 18:55 [facility] ER HOLD cg ss 04/19 07:08 04/18 18:55 ERHOLD- cg
--- NOTE | 2022-04-18 16:40 | ER ---
Nurse's Notes [facility] Name: Lindsey Peter Age: 71 yrs Sex: Female : 1950 Arrival Date: 04/18/2022 Time: 15:26 Bed 15 Private MD: Diagnosis: Pneumonia, unspecified organism;Hypotension, unspecified Presentation: 04/18 15:41 Chief complaint: Patient's son or daughter states: was diagnosed with pneumonia at [place] yesterday , today she seems more labored breathing and more disoriented and has hx of Multiple myeloma and is in remission but she still takes chemo drugs, her potassium was low and she was dehydrated yesterday, also has been having vomiting and diarrhea. Coronavirus screen: Client presents with at least one sign or symptom that may indicate coronavirus-19. Ebola Screen: Patient negative for fever greater than or equal to 101.5 degrees Fahrenheit, and additional compatible Ebola Virus Disease symptoms Patient denies exposure to infectious person. Patient denies travel to an Ebola-affected area in the 21 days before illness onset. No symptoms or risks identified at this time. Initial Sepsis Screen: Does the patient meet any 2 criteria? No. Patient's initial sepsis screen is negative. Does the patient have a suspected source of infection? No. Patient's initial sepsis screen is negative. Risk Assessment: Do you want to hurt yourself or someone else? Patient reports no desire to harm self or others. Onset of symptoms was April 17, 2022. 15:41 Method Of Arrival: Wheelchair 15:41 Acuity: IVANA 2 iw Triage Assessment: 04/19 08:11 General: Appears in no apparent distress. comfortable, Behavior is calm, cooperative, kr3 appropriate for age. 08:12 Respiratory: Reports shortness of breath at rest. kr3 Historical: - Allergies: 04/18 15:44 No Known Allergies; iw - PMHx: 15:44 CVA; High Cholesterol; Hypertension; meningitis; multiple myeloma; Myocardial iw infarction; Screenin/10 08:10 [facility] ED Fall Risk Assessment (Adult) History of falling in the last 3 months, kr3 including since admission No falls in past 3 months (0 pts) Confusion or Disorientation No (0 pts) Intoxicated or Sedated No (0 pts) Impaired Gait No (0 pts) Mobility Assist Device Used Yes (1 pt) Altered Elimination No (0 pt) Score/Fall Risk Level 0 - 2 = Low Risk. Abuse screen: Denies threats or abuse. Nutritional screening: No deficits noted. Tuberculosis screening: No symptoms or risk factors identified. Assessment: 08:09 Reassessment:. kr3 08:11 Respiratory: Airway is patent Respiratory effort is even, labored. kr3 Vital Signs: 04/18 15:41 BP 78 / 44; Pulse 83; Resp 18; Temp 98.2; Pulse Ox 92% on R/A; iw 17:15 BP 107 / 53; Pulse 72; Resp 16; Pulse Ox 100% ; ss ED Course: 15:26 Patient arrived in ED. rg4 15:30 Iw[facility] Arau[facility]-C [facility] snw 15:30 Rafa Gibson MD is Attending Physician. snw 15:43 Triage completed. iw 16:11 Lilo Devlin, RN is Primary Nurse. ko1 16:27 Initial lab(s) drawn, by me, sent to lab. First set of blood cultures drawn by me. jw7 16:36 Inserted saline lock: 20 gauge in right antecubital area, using aseptic technique. jw7 Blood collected. 16:37 Procalcitonin Sent. jw7 16:37 CMP Sent. jw7 16:37 CBC with Diff Sent. jw7 16:37 TS Sent. jw7 16:37 TSH Sent. jw7 16:38 Donna Gomez MD is Hospitalizing Provider. snw 17:42 Blood Culture Adult (2) Sent. ko1 17:42 Procalcitonin Sent. ko1 17:42 TS Sent. ko1 04/19 08:09 Report given to FLORES Rabago on the 4th floor. kr3 08:11 Arm band placed on right wrist. kr3 08:12 Placed in gown. Bed in low position. Call light in reach. Side rails up X 1. kr3 08:13 No provider procedures requiring assistance completed. kr3 Administered Medications: 04/18 16:38 Drug: NS 0.9% 1000 ml Route: IV; Rate: 75 ml/hr; Site: right antecubital; ko1 17:35 Drug: NS 0.9% 500 ml Route: IV; Rate: bolus; Site: right antecubital; ko1 17:41 Drug: Potassium Chloride 20 mEq Route: IV; Rate: calculated rate; Site: right ko1 antecubital; 17:41 Drug: Potassium Chloride 40 mEq Route: PO; ko1 17:42 Drug: Rocephin (cefTRIAXone) 1 grams Route: IV; Rate: calculated rate; Site: right ko1 antecubital; 18:18 Not Given (Duplicate Order): vancoMYCIN 1 grams IVPB once over 2 hrs ko1 Outcome: 16:39 Decision to Hospitalize by Provider. snw 04/19 08:58 Patient left the ED. ap3 Signatures: Iwona Araujo, TICK INSPECTOR-C TICK INSPECTOR-Csnw Hanh Roman, RN RN iw Rebecca Harrell RN Jennifer Castelan rg4 Regi Haas RN RN neo3 Marley Torrez7 Susie Stanley RN RN [email or web address] Lilo Devlin RN RN ko1 Corrections: (The following items were deleted from the chart) 04/18 15:44 15:41 Chief complaint: Patient's son or daughter states: was diagnosed with pneumonia iw at [place] yesterday , today she seems more labored breathing and more disoriented and has hx of Multiple myeloma and is in remission but she still takes chemo drugs, her potassium was low and she was dehydrated yesterday iw
[2022-04-18] MEDS ORDERED: CEFTRIAXONE 1000 MG/VIAL ONE (16:48)
[2022-04-18] MEDS ORDERED: HYDROCODONE/APAP 5/325 MG TAB PO PRN (16:49)
[2022-04-18] MEDS ORDERED: ACETAMINOPHEN 325 MG TABLET PO PRN (16:49)
--- NOTE | 2022-04-18 16:57 | P.HP ---
Certification for Inpatient Patient admitted to: Inpatient With expected LOS: >2 Midnights Patient will require the following post-hospital care: None Practitioner: I am a practitioner with admitting privileges, knowledge of patient current condition, hospital course, and medical plan of care. Services: Services provided to patient in accordance with Admission requirements found in Title 42 Section 412.3 of the Code of Federal Regulations Patient History Date of Service: 04/18/22 Reason for admission: SOB History of Present Illness: Patient is a 71-year-old female with a past medical history significant for CVA, hyperlipidemia, hypertension, multiple myeloma, CT, meningitis, CAD who presents with complaint of shortness of breath onset yesterday. Family reported that patient had some intermittent confusion since yesterday and that patient has had chronic cough for quite some time now. Patient reported associated signs and symptoms of fatigue, weakness, cough, chills, fever, poor appetite, nausea, vomiting and diarrhea. At time of assessment patient is alert and oriented x3. Patient denies any other signs or symptoms. Symptoms are aggravated or relieved by nothing. Patient was seen at an outside ER yesterday and was discharged home with antibiotics for pneumonia. Patient reported that symptoms became worse despite compliance with home antibiotics. Patient decided to present to the hospital due to worsening symptoms. Of note, family reported that patient has been hypotensive since yesterday. Allergies No Known Drug Allergies Allergy (Verified 09/03/20 05:33) Unknown Home Medications: Amoxicillin [Amoxil Cap*] 250 mg PO BID #14 cap 09/03/20 Aspirin [Aspirin EC 81 MG] 81 mg PO DAILY 09/03/20 Atorvastatin Calcium [Lipitor] 80 mg PO DAILY 09/03/20 Bimatoprost [Lumigan Opthalmic Drops*] 1 drop EACH EYE DAILY 09/03/20 Calcium Carbonate/Vitamin D3 [Calcium 600 mg-D3 20 Mcg Tab] 1 each PO BID 09/03/20 Famotidine [Pepcid] 20 mg PO BID #60 tab 09/03/20 Lactobacillus Acidophilus [Acidophilus Lactobacilli] 1 each PO TID #30 capsule 09/03/20 Lenalidomide [Revlimid] 10 mg PO DAILY 09/03/20 Losartan/Hydrochlorothiazide [Losartan-Hctz 100-25 mg Tab] 1 tab PO DAILY 09/03/20 metroNIDAZOLE [Flagyl] 500 mg PO Q8H #21 tablet 09/03/20 - Past Medical/Surgical History Diabetic: No -: CAD, CT -: Hypertension -: High Cholesterol -: Multiple myeloma-in remission -: gastritis -: copd -: tubal ligation -: Stem-cell transplant Psychosocial/ Personal History: Patient is unemployed, lives with her - Family History Mother -: Heart disease, Stroke Notes: dementia Father -: Cancer Notes: colon - Social History Smoking Status: Former smoker Alcohol use: No CD- Drugs: No Caffeine use: Yes Place of Residence: Home Review of Systems General: Fever, Chills, Weakness, Other (fatigue, poor appetite ) Eyes: Unremarkable ENT: Unremarkable Respiratory: Cough, Shortness of Breath Cardiovascular: Unremarkable Gastrointestinal: Nausea, Vomiting, Diarrhea Genitourinary: Unremarkable Musculoskeletal: Unremarkable Integumentary: Unremarkable Neurological: Weakness, Confusion Lymphatics: Unremarkable Physical Examination - Physical Exam General: Alert, Oriented x3, Cooperative, Mild distress HEENT: Atraumatic, PERRLA, Mucous membr. moist/pink, EOMI, Sclerae nonicteric Neck: Supple, 2+ carotid pulse no bruit, No LAD, Without JVD or thyroid abnormality Respiratory: Diminished, Expiratory wheezes, Inspiratory wheezes Cardiovascular: No edema, Regular rate/rhythm, Normal S1 S2, No murmurs Capillary refill: <2 Seconds Gastrointestinal: Normal bowel sounds, Non-distended, No tenderness Musculoskeletal: No clubbing, No swelling, No contractures, No tenderness Integumentary: No rashes, No breakdown, No significant lesion Neurological: Normal speech, Normal tone, Normal affect Lymphatics: No axilla or inguinal lymphadenopathy Assessment and Plan - Plan --Pneumonia. Noted on outpatient imaging reports. Blood cultures pending. Patient placed on antibiotics, neb treatment with albuterol\Atrovent and O2 therapy. Pulmonology and infectious disease MD consulted. We will await further recommendations from deli associate. -- Acute encephalopathy. Family reports patient has exhibited intermittent confusion. At time of assessment patient alert and oriented x3. Continue supportive care. --History of multiple myeloma. Status post stem cell transplant. Continue home medication. Patient follows up with an outpatient oncologist monthly for lab work. Family reported that patient is in remission. Continue supportive care. -- Diarrhea. Stool studies pending to rule out any infectious process. Continue IV hydration and supportive care. --Nausea and vomiting. Antiemetics on board. Continue supportive care. --GERD\Gastritis. Continue famotidine. --Hyperlipidemia. Continue statin. --Hypertension. Patient currently hypotensive. We will hold off on BP meds. Continue IV hydration. Blood pressure responding to IV fluid administration. Continue supportive care. --History of CVA and CT. Continue aspirin and statin. --Pancytopenia. Likely secondary to multiple myeloma. We will continue to monitor blood work. Continue supportive care. --CKD 3B. Stable. We will continue to monitor renal functions. --DVT prophylaxis with SCDs. Discharge Plan: Home Plan to discharge in: Greater than 2 days - Advance Directives Does patient have a Living Will: Yes Does patient have a Durable POA for Healthcare: Yes - Code Status/Comfort Care Code Status Assessed: Yes Physician Review: Patient Assessed, Agree with Above Assessment and Plan Critical Care: No
[2022-04-18 16:59] LABS: Absolute Lymphocytes (CBC) 0.2 K/uL (0.7-4.9); Hematocrit 32.6 % (36.0-45.0); Lymphocytes % 13.7 % (15.3-44.8); MCV 103.9 fL (80-100); MPV 13.2 fL (7.6-11.3); RBC Red Blood Cell Count 3.14 M/uL (3.86-4.86)
[2022-04-18] MEDS: NA CHLORIDE 0.9% 1,000 ML IV SCH (17:00)
[2022-04-18] MEDS ORDERED: Levofloxacin 750mg IV 750 MG/150 ML BAG IV SCH (17:00)
[2022-04-18] MEDS ORDERED: ENOXAPARIN 40 MG/0.4 ML SQ SCH (17:00)
[2022-04-18 17:20] LABS: Albumin 2.9 g/dL (3.4-5.0); Bilirubin Total 0.7 mg/dL (0.2-1.0); Protein, Total 7.1 g/dL (6.4-8.2); Thyroid Stimulating Hormone 1.36 uIU/mL (0.358-3.740)
[2022-04-18 17:23] VITALS: BMI 26.4
[2022-04-18] MEDS: METHYLPREDNISOLONE 40 MG INJ IV SCH (17:34)
[2022-04-18] MEDS ORDERED: METHYLPREDNISOLONE 40 MG INJ ONE ×2 (17:35→21:15)
[2022-04-18] MEDS ORDERED: ENOXAPARIN 40 MG/0.4 ML SQ ONE (17:36)
[2022-04-18] MEDS ORDERED: Levofloxacin 750mg IV 750 MG/150 ML BAG IV ONE (17:36)
[2022-04-18] MEDS ORDERED: POTASSIUM CL SA 10 MEQ TAB PO ONE ×2 (17:41→18:05)
[2022-04-18] MEDS ORDERED: KCL 20 MEQ/100 mL IVPB 100 ML IV ONE (17:42)
[2022-04-18] MEDS ORDERED: VANCOMYCIN 1.25 GM in NA CHLORIDE 0.9% 250 ML IVPB ONE (18:00)
[2022-04-18] MEDS ORDERED: ACETAMINOPHEN 500 MG TAB ONE (19:59)
[2022-04-18] MEDS: IPRATROPIUM BROM 0.5MG/2.5ML NEB SCH (20:40)
[2022-04-18] MEDS: ALBUTEROL 2.5 MG/3 ML NEB SOL NEB SCH (20:40)
[2022-04-18] MEDS ORDERED: FAMOTIDINE 20 MG TAB PO SCH (21:00)
[2022-04-18] MEDS ORDERED: CALCIUM CARBONATE PO SCH (21:00)
[2022-04-18] MEDS ORDERED: VITAMIN D3 PO SCH (21:00)
[2022-04-18] MEDS ORDERED: HOME MED 1 EA UNK (Lactobacillus Acidophilus [Acidophilus Lactobacilli] Capsule) PO SCH (21:00)
[2022-04-18] MEDS: FAMOTIDINE 20 MG TAB PO SCH (21:00)
[2022-04-18] MEDS: CALCIUM CARB 500MG/VIT D 200 IU TAB PO SCH (21:00)
[2022-04-18] MEDS ORDERED: IPRATROPIUM BROM 0.5MG/2.5ML ONE (21:08)
[2022-04-18] MEDS ORDERED: ALBUTEROL 2.5 MG/3 ML NEB SOL ONE (21:08)
[2022-04-18] MEDS ORDERED: FAMOTIDINE 20 MG TAB ONE (21:15)
[2022-04-18] MEDS ORDERED: ATORVASTATIN 20 MG TAB ONE (21:15)
[2022-04-18] MEDS ORDERED: LACTOBACILLUS/ACIDOPHILUS TAB ONE (21:23)
[2022-04-18] MEDS: ATORVASTATIN 40 MG TAB PO SCH (21:30)
[2022-04-18] MEDS: LACTOBACILLUS/ACIDOPHILUS TAB PO SCH (21:30)
[2022-04-18] MEDS ORDERED: ALBUMIN HUMAN 25% 100 ML IV ONE ×2 (21:36→22:12)
[2022-04-18] MEDS ORDERED: NA CHLORIDE 0.9% 500 ML IV ONE (21:37)
[2022-04-18] MEDS ORDERED: NA CHLORIDE 0.9% 500 ML ONE (22:12)
[2022-04-19 01:30] LABS: SARS-COV-2 RT PCR NEGATIVE (NEGATIVE)
[2022-04-19] MEDS: IPRATROPIUM BROM 0.5MG/2.5ML NEB SCH ×4 (02:30→21:40)
[2022-04-19] MEDS: ALBUTEROL 2.5 MG/3 ML NEB SOL NEB SCH ×4 (02:30→21:40)
[2022-04-19 04:37] LABS: Absolute Lymphocytes (CBC) 0.1 K/uL (0.7-4.9); Lymphocytes % 6.6 % (15.3-44.8); MCV 103.4 fL (80-100); MPV 13.3 fL (7.6-11.3); RBC Red Blood Cell Count 2.42 M/uL (3.86-4.86)
[2022-04-19 05:06] LABS: Albumin 2.3 g/dL (3.4-5.0); Bilirubin Total 0.3 mg/dL (0.2-1.0); Phosphorus 2.5 mg/dL (2.5-4.9); Potassium 3.6 mmol/L (3.5-5.1); Protein, Total 5.4 g/dL (6.4-8.2)
[2022-04-19 05:07] LABS: Magnesium 1.4 mg/dL (1.6-2.4)
[2022-04-19] MEDS ORDERED: Magnesium Sulfate 2gm IVPB 2 G/50 ML BAG IV ONE ×2 (05:08→06:36)
[2022-04-19 05:23] LABS: Ferritin 522.4 ng/mL (8-388)
[2022-04-19] MEDS ORDERED: NA CHLORIDE 0.9% 1,000 ML ONE (05:24)
[2022-04-19] MEDS: METHYLPREDNISOLONE 40 MG INJ IV SCH ×3 (06:00→11:10)
[2022-04-19] MEDS: NA CHLORIDE 0.9% 1,000 ML IV SCH ×2 (06:20→09:28)
[2022-04-19] MEDS ORDERED: POTASSIUM 25 MEQ EFFERV TAB PO ONE (06:28)
[2022-04-19] MEDS ORDERED: POTASSIUM 25 MEQ EFFERV TAB ONE (06:36)
[2022-04-19] MEDS ORDERED: POTASS/SODIUM PHOSPHATE 1 PKT POWD.PACK ONE (06:54)
[2022-04-19] MEDS: POTASS/SODIUM PHOSPHATE 1 PKT POWD.PACK PO SCH ×2 (07:00→09:21)
--- NOTE | 2022-04-19 07:59 | RAD REPORT ---
EXAM DESCRIPTION: CT - Chest Angio - 04/19/2022 7:13 am CLINICAL HISTORY: Shortness of breath/hypoxemia COMPARISON: 2018 TECHNIQUE: Dynamically enhanced axial 3 mm thick images of the chest were obtained during administra tion of <100> mL Isovue 370 IV contrast. Coronal and oblique reconstruction images were generated and reviewed. Exam utilizes a protocol for optimal evaluation of pulmonary arterial tree. Maximum intensity projections 3D imaging was utilized All CT scans are performed using dose optimization technique as appropriate and may include automated exposure control or mA/KV adjustment according to patient size. FINDINGS: A pulmonary embolus is not seen. A thoracic aortic aneurysm is not noted. A pleural effusion is not seen. A pericardial effusion is not seen. Moderate left lower lobe consolidation IMPRESSION: Negative for a pulmonary embolism. Moderate left lower lobe pneumonia. This should be followed until it is clear to help exclude a post obstructive process
[2022-04-19] MEDS ORDERED: ALBUTEROL 2.5 MG/3 ML NEB SOL ONE (08:27)
[2022-04-19] MEDS ORDERED: IPRATROPIUM BROM 0.5MG/2.5ML ONE (08:27)
--- NOTE | 2022-04-19 08:57 | P.CNS ---
Chief Complaint: SOB History of Present Illness: Patient is a 71-year-old female with a past medical history significant for CVA, hyperlipidemia, hypertension, multiple myeloma, NH, meningitis, CAD who presents with complaint of shortness of breath onset yesterday. Per family, patient had some intermittent confusion since yesterday and that patient has had chronic cough for quite some time now. Patient reported associated signs and symptoms of fatigue, weakness, cough, chills, fever, poor appetite, nausea, vomiting and diarrhea in ER. At time of assessment patient is alert and oriented x3. Patient denies any other signs or symptoms. Symptoms are aggravated or relieved by nothing. Patient was seen at an outside ER yesterday and was discharged home with antibiotics for pneumonia with no improvement. Per CT-chest, patient has moderate left lower lobe pneumonia. ID is consulted for IV antibiotic recommendation and treatment. Allergies No Known Drug Allergies Allergy (Verified 09/03/20 05:33) Unknown Home Medications: Amoxicillin [Amoxil Cap*] 250 mg PO BID #14 cap 09/03/20 Aspirin [Aspirin EC 81 MG] 81 mg PO DAILY 09/03/20 Atorvastatin Calcium [Lipitor] 80 mg PO DAILY 09/03/20 Bimatoprost [Lumigan Opthalmic Drops*] 1 drop EACH EYE DAILY 09/03/20 Calcium Carbonate/Vitamin D3 [Calcium 600 mg-D3 20 Mcg Tab] 500 mg PO BID 09/03/20 Famotidine [Pepcid] 20 mg PO BID #60 tab 09/03/20 Lactobacillus Acidophilus [Acidophilus Lactobacilli] 1 each PO TID #30 capsule 09/03/20 Lenalidomide [Revlimid] 10 mg PO DAILY 09/03/20 Losartan/Hydrochlorothiazide [Losartan-Hctz 100-25 mg Tab] 1 tab PO DAILY 09/03/20 - Past Medical/Surgical History Diabetic: No -: CAD, [place] -: Hypertension -: High Cholesterol -: Multiple myeloma-in remission -: gastritis -: copd -: tubal ligation -: Stem-cell transplant Psychosocial/ Personal History: Patient is unemployed, lives with her - Family History Mother Medical History: Heart disease, Stroke Notes: dementia Father Medical History: Cancer Notes: colon - Social History Smoking Status: Current every day smoker Alcohol use: No CD- Drugs: No Caffeine use: Yes Place of Residence: Home Review of Systems 10-point ROS is otherwise unremarkable General: Malaise Respiratory: Cough Gastrointestinal: Nausea Physical Examination Temp Pulse Resp BP Pulse Ox 98.7 F 66 17 108/58 L 100 04/19/22 04:00 04/19/22 04:00 04/19/22 04:00 04/19/22 04:00 04/19/22 04:00 General: Alert, In no apparent distress, Oriented x3 Respiratory: Crackles/rales (bilateral basal) Cardiovascular: No edema, Normal pulses, Normal S1 S2 Gastrointestinal: Normal bowel sounds Musculoskeletal: No swelling, No tenderness Integumentary: No breakdown Neurological: Normal speech, Normal affect Laboratory Data (last 24 hrs) 04/18/22 16:27: WBC 1.70 L*, Hgb 11.0 L, Hct 32.6 L, Plt Count 68 L 04/18/22 16:27: Sodium 130 L, Potassium 3.0 L, BUN 20 H, Creatinine 1.50 H, Glucose 130 H, Total Bilirubin 0.7, AST 97 H, ALT 64 H, Alkaline Phosphatase 71 Imagings Data: Per CT-hest 04/19: MPRESSION: Negative for a pulmonary embolism. Moderate left lower lobe pneumonia. This should be followed until it is clear to help exclude a post obstructive process - Problems (1) Pneumonia Current Visit: Yes Status: Acute Plan: Cultures: - 04/19 Sputum: Pending - 04/19 BC: Pending - 04/19 COVID, Influenza A and B: Negative Antibiotics: - Rocephin given once, 04/18 - Levofloxacin:04/18 to present - Vancomycin: 04/18 to present - Recommend to continue current antibiotics regimen - ID will adjust antibiotics when culture is available Pancytopenia: 04/19 - WBC: 2.1 - HGB: 8.6 - PLT: 48 - Hematology consulted ID will closely monitor the patient for signs of infection with fever and WBC trends Qualifiers: Laterality: left Lung location: lower lobe of lung Conclusions/Impression: - Pneumonia: 1. Continue on IV Levaofloxacin and Vancomycin 2. Pending for sputum and BC Cultures and will adjust antibiotic based on susceptibility - Anemia of chronic disease: Continue monitoring H&H - Severe Protein calorie malnutrition: Patient albumin is low, 2.3. Recommend supplemental protein drinks to support proper immunity - Renal insufficiency - Gastritis - COPD - CVA - CAD - Hyperlipidemia - Hypertension - Multiple myeloma - NH - Meningitis Case has been discussed with Kip Patel Thank you Dr. Gomez for consult
[2022-04-19] MEDS: HOME MED 1 EA UNK [BIMATOPROST OPHTH DROPS/2.5 ML BTL] OPTH SCH (09:00)
[2022-04-19] MEDS: LENALIDOMIDE 10 MG PO SCH (09:00)
[2022-04-19] MEDS: CALCIUM CARB 500MG/VIT D 200 IU TAB PO SCH ×2 (09:21→20:05)
[2022-04-19] MEDS: LACTOBACILLUS/ACIDOPHILUS TAB PO SCH ×3 (09:21→20:05)
[2022-04-19] MEDS: ASPIRIN 81 MG CHEWABLE TABLET PO SCH (09:21)
--- NOTE | 2022-04-19 12:13 | P.CNS ---
Date of Consult: 04/19/22 Reason for Consult: Left lower lobe pneumonia Chief Complaint: SOB History of Present Illness: Patient is a pleasant 71 years of age with multiple myeloma in remission admitted with fever shortness of breath that on Monday became progressively worse, heavy smoker quit in 2012 denies alcohol abuse she does have history of coronary artery disease and stents and is s/p bone marrow transplant take immunomodulators is very weak vital signs are stable to her illness she was very active following up here to the cancer center Allergies No Known Drug Allergies Allergy (Verified 09/03/20 05:33) Unknown Home Medications: Amoxicillin [Amoxil Cap*] 250 mg PO BID #14 cap 09/03/20 Aspirin [Aspirin EC 81 MG] 81 mg PO DAILY 09/03/20 Atorvastatin Calcium [Lipitor] 80 mg PO DAILY 09/03/20 Bimatoprost [Lumigan Opthalmic Drops*] 1 drop EACH EYE DAILY 09/03/20 Calcium Carbonate/Vitamin D3 [Calcium 600 mg-D3 20 Mcg Tab] 500 mg PO BID 09/03/20 Famotidine [Pepcid] 20 mg PO BID #60 tab 09/03/20 Lactobacillus Acidophilus [Acidophilus Lactobacilli] 1 each PO TID #30 capsule 09/03/20 Lenalidomide [Revlimid] 10 mg PO DAILY 09/03/20 Losartan/Hydrochlorothiazide [Losartan-Hctz 100-25 mg Tab] 1 tab PO DAILY 0 09/03/20 - Past Medical/Surgical History Diabetic: No -: CAD, [place] -: Hypertension -: High Cholesterol -: Multiple myeloma-in remission -: gastritis -: copd -: tubal ligation -: Stem-cell transplant Psychosocial/ Personal History: Patient is unemployed, lives with her - Family History Mother Medical History: Heart disease, Stroke Notes: dementia Father Medical History: Cancer Notes: colon - Social History Smoking Status: Current every day smoker Alcohol use: No CD- Drugs: No Caffeine use: Yes Place of Residence: Home Review of Systems 10-point ROS is otherwise unremarkable General: Weakness Respiratory: Shortness of Breath Physical Examination Temp Pulse Resp BP Pulse Ox 97.5 F 86 18 135/62 96 04/19/22 09:05 04/19/22 09:05 04/19/22 09:05 04/19/22 09:05 04/19/22 09:05 General: Alert, Oriented x3 HEENT: Atraumatic Neck: Supple Respiratory: Crackles/rales (Left lower lobe) Cardiovascular: No edema, Regular rate/rhythm, Normal S1 S2 Gastrointestinal: Normal bowel sounds, Soft and benign, Non-distended Musculoskeletal: No clubbing, No swelling Laboratory Data (last 24 hrs) 04/18/22 16:27: WBC 1.70 L*, Hgb 11.0 L, Hct 32.6 L, Plt Count 68 L 04/18/22 16:27: Sodium 130 L, Potassium 3.0 L, BUN 20 H, Creatinine 1.50 H, Glucose 130 H, Total Bilirubin 0.7, AST 97 H, ALT 64 H, Alkaline Phosphatase 71 - Problems (1) Pneumonia Current Visit: Yes Status: Acute Plan: Patient is 71 years of age history of multiple myeloma in remission admitted with acute left lower lobe pneumonia she is on immunomodulator risk for complications patient is pancytopenic blood cultures are pending signs oxygenation satisfactory patient's procalcitonin level is very high she is got electrolyte abnormality hypomagnesemia influenza and coronavirus negative DC steroids for now Qualifiers: Laterality: left Lung location: lower lobe of lung
[2022-04-19 13:32] LABS: Anisocytosis 1+; Blood Morphology Comment NOTED (NOT SEEN); Macrocytosis SLIGHT; Platelet Estimate DECR
[2022-04-19 13:35] LABS: Burr Cells 2+
[2022-04-19 13:36] LABS: Poikilocytosis 2+
[2022-04-19] MEDS: SOD FERRIC GLUC COMPLX/SUCROSE 125 MG in NA CHLORIDE 0.9% 100 ML IV SCH (16:38)
[2022-04-19] MEDS: BENZONATATE 100 MG CAP PO PRN (17:54)
[2022-04-19] MEDS ORDERED: VANCOMYCIN 1 GM in NA CHLORIDE 0.9% 250 ML IVPB SCH ×2 (18:00)
[2022-04-19] MEDS: FAMOTIDINE 20 MG TAB PO SCH (20:05)
[2022-04-19] MEDS: ATORVASTATIN 40 MG TAB PO SCH (20:06)
[2022-04-20] MEDS: NA CHLORIDE 0.9% 1,000 ML IV SCH (02:08)
[2022-04-20] MEDS: BENZONATATE 100 MG CAP PO PRN ×2 (02:12→21:09)
[2022-04-20] MEDS: ALBUTEROL 2.5 MG/3 ML NEB SOL NEB SCH ×4 (03:15→20:25)
[2022-04-20] MEDS: IPRATROPIUM BROM 0.5MG/2.5ML NEB SCH ×2 (03:15→07:45)
--- NOTE | 2022-04-20 06:47 | ECHO ---
HEIGHT: 5 ft 1 in WEIGHT: 140 lb 0 oz DATE OF STUDY: 04/19/[address]: Donna Gomez MD 2-DIMENSIONAL: YES M.MODE: YES DOPPLER: YES COLOR FLOW: YES TDS: YES PORTABLE: YES DEFINITY: BUBBLE STUDY: DIAGNOSIS: CONGESTIVE HEART FAILURE CARDIAC HISTORY: CATHERIZATION: SURGERY: PROSTHETIC VALVE: PACEMAKER: MEASUREMENTS (cm) DIASTOLIC (NORMALS) SYSTOLIC (NORMALS) IVSd 1.1 (0.6-1.2) LA Diam (1.9-4.0) LVEF 69% LVIDd 3.0 (3.5-5.7) LVIDs 1.9 (2.0-3.5) %FS 38% LVPWd 1.0 (0.6-1.2) Ao Diam 2.8 (2.0-3.7) 2 DIMENSIONAL ASSESSMENT: RIGHT ATRIUM: NORMAL LEFT ATRIUM: NORMAL RIGHT VENTRICLE: NORMAL LEFT VENTRICLE: NORMAL TRICUSPID VALVE: NORMAL MITRAL VALVE: NORMAL PULMONIC VALVE: NORAML AORTIC VALVE: THICKENED, NO AORTIC STENOSIS PERICARDIAL EFFUSION: NONE AORTIC ROOT: NORMAL LEFT VENTRICULAR WALL MOTION: NORMAL DOPPLER/COLOR FLOW: SEE BELOW COMMENTS: 1. NORMAL LEFT VENTRICULAR EJECTION FRACTION 60-65% 2. NORMAL WALL MOTION 3. THICKENED AORTIC VALVE, NO AORTIC STENOSIS, MILD AORTIC INSUFFICIENCY 4. GRADE I DIASTOLIC DYSFUNCTION TECHNOLOGIST: RADHA FINCH
[2022-04-20] MEDS: ASPIRIN 81 MG CHEWABLE TABLET PO SCH (08:31)
[2022-04-20] MEDS: CALCIUM CARB 500MG/VIT D 200 IU TAB PO SCH ×2 (08:31→20:10)
[2022-04-20] MEDS: HOME MED 1 EA UNK [BIMATOPROST OPHTH DROPS/2.5 ML BTL] OPTH SCH (08:32)
[2022-04-20] MEDS: SOD FERRIC GLUC COMPLX/SUCROSE 125 MG in NA CHLORIDE 0.9% 100 ML IV SCH (08:32)
[2022-04-20] MEDS: LACTOBACILLUS/ACIDOPHILUS TAB PO SCH ×3 (08:32→20:10)
[2022-04-20] MEDS: LENALIDOMIDE 10 MG PO SCH (08:33)
--- NOTE | 2022-04-20 08:56 | RAD REPORT ---
EXAM DESCRIPTION: RAD - Chest Single View - 04/20/2022 8:47 am CLINICAL HISTORY: pneumonia Chest pain. COMPARISON: Chest Single View dated 09/02/2020; Chest Single View dated 08/06/2020; Chest Pa And Lat ( 2 Views) dated 03/13/2020; Chest Pa And Lat (2 Views) dated 04/27/2019 FINDINGS: Portable technique limits examination quality. Moderate airspace opacity in the left lung base is present compatible with pneumonia. The right lung appears clear. The heart is normal in size. IMPRESSION: Moderate left base pneumonia pattern.
[2022-04-20] MEDS ORDERED: SOD FERRIC GLUC COMPLX/SUCROSE 125 MG in NA CHLORIDE 0.9% 100 ML IV SCH (09:00)
--- NOTE | 2022-04-20 09:21 | P.PN ---
Date of Service: 04/19/22 Subjective Patient clinically doing better. No new complaints. He states her strength is improved. CT scan of the chest revealed persistent pneumonia on the left lower lobe. Patient continued with leukopenia. Spoke to hematology and they recommended Neupogen x1. Will follow white blood cell count. Monitor additional labs. IV antibiotic therapy. Echocardiogram pending. Procalcitonin level trending downward. Awaiting culture results. Physical Examination - Physical Exam General: Alert, Oriented x3, Cooperative, Mild distress Respiratory: Diminished, basilar fine crackles Cardiovascular: No edema, Regular rate/rhythm, Normal S1 S2, No murmurs Gastrointestinal: Normal bowel sounds, Non-distended, No tenderness Musculoskeletal: No clubbing, No swelling, No contractures, No tenderness Integumentary: No rashes, No breakdown, No significant lesion Neurological: Generalized weakness but strength has improved. Assessment and Plan -Assessment 1. Left lower lobe pneumonia 2. History of multiple myeloma 3. Lenalidomide(follows interstitial lung disease, eosinophilic pneumonia, pneumonitis) 4. Pancytopenia -Plan 1. Continue with IV antibiotics 2. Awaiting sputum and blood culture 3. Repeat chest x-ray 4. CT scan of the chest reviewed 5. Appreciate pulmonary consultation 6. Continue with nebs as needed 7. O2 per protocol 8. Hep-Lock IV 9. Repeat labs including CBC; spoke with hematology regarding her multiple myeloma treatment-Lenalidomide. Appreciate their recommendations which included Neupogen and iron supplementation. Because of its association with pulmonary side effects we will hold off at this time. Removed significantly from yesterday. Continue to monitor. 10. GI and DVT prophylaxis
[2022-04-20 09:33] LABS: Magnesium 1.7 mg/dL (1.6-2.4)
--- NOTE | 2022-04-20 09:36 | P.PN ---
Subjective Date of Service: 04/20/22 Chief Complaint: SOB Patient sitting in bed with family members at the bedside. Not in cardiopulmonary distress. Patient was very pleasant and reported feeling better. Physical Examination - Vital Signs Temperature: 97.9 F Blood Pressure: 135/64 Pulse: 69 Respirations: 18 Pulse Ox (%): 96 - Physical Exam General: Alert, In no apparent distress Respiratory: Crackles/rales (Bilateral lower lobes) Cardiovascular: No edema, Normal pulses, Normal S1 S2 Gastrointestinal: Normal bowel sounds Musculoskeletal: No swelling, No tenderness Integumentary: No breakdown Neurological: Normal speech, Normal affect - Studies Current Medications: Acetaminophen (Acetaminophen 500 Mg Tab) 500 mg PO Q4HP PRN PRN Reason: TEMP > 100.4' F OR MILD PAIN Last Admin: 04/18/22 20:00 Dose: 500 mg Hydrocodone Bitart/Acetaminophen (Hydrocodone/Apap 5/325 Mg Tab) 1 tab PO Q6H PRN PRN Reason: Pain scale 5-7 (Moderate) Albuterol Sulfate (Albuterol 2.5 Mg/3 Ml Neb Ingrid) 2.5 mg NEB [id number] [facility] Last Admin: 04/20/22 07:45 Dose: 2.5 mg Aspirin (Aspirin 81 Mg Chewable Tablet) 81 mg PO DAILY [facility] Last Admin: 04/20/22 08:31 Dose: 81 mg Atorvastatin Calcium (Atorvastatin 40 Mg Tab) 40 mg PO BEDTIME [facility] Last Admin: 04/19/22 20:06 Dose: 40 mg Benzonatate (Benzonatate 100 Mg Cap) 200 mg PO TID PRN PRN Reason: COUGH Last Admin: 04/20/22 02:12 Dose: 200 mg Calcium Carbonate (Calcium Carb 500mg/Vit D 200 Iu Tab) 1 tab PO BID [facility] Last Admin: 04/20/22 08:31 Dose: 1 tab Famotidine (Famotidine 20 Mg Tab) 20 mg PO BEDTIME [facility]; Protocol Last Admin: 04/19/22 20:05 Dose: 20 mg Filgrastim (Tbo-Filgrastim 480 Mcg/0.8 Ml Syr) 480 mcg SQ DAILY [facility] Stop: 04/20/22 18:01 Home Med (Home Med 1 Ea Unk [Bimatoprost Ophth Drops/2.5 Ml Btl]) 1 ea OPTH DAILY [facility] Last Admin: 04/20/22 08:32 Dose: 1 ea Home Med (Lenalidomide [Revlimid]) 10 mg PO DAILY [facility] Last Admin: 04/20/22 08:33 Dose: 10 mg Levofloxacin/Dextrose (Levaquin 750 Mg/150 Ml Ivpb (Premix)) 750 mg in 150 mls @ 100 mls/hr IV Q48H [facility]; Protocol Vancomycin HCl 1 gm/ Sodium (Chloride) 250 mls @ 250 mls/hr IVPB Q24H [facility]; Protocol Last Admin: 04/19/22 17:53 Dose: 250 mls Ferric Sodium Gluconate Complex 125 mg/ Sodium Chloride 110 mls @ 100 mls/hr IV DAILY [facility] Stop: 04/26/22 10:05 Last Admin: 04/20/22 08:32 Dose: 110 mls Ipratropium Stuart (Ipratropium Brom 0.5mg/2.5ml) 0.5 mg NEB [id number] [facility] Last Admin: 04/20/22 07:45 Dose: 0.5 mg Lactobacillus Acidoph/Bulgaricus (Lactobacillus/Acidophilus Tab) 1 tab PO TID [facility] Last Admin: 04/20/22 08:32 Dose: 1 tab Ondansetron HCl (Ondansetron 4 Mg/2 Ml Vial) 4 mg IV Q6HP PRN PRN Reason: NAUSEA / VOMITING Sodium Chloride (Flush Normal Saline 10 Ml) 10 ml IV BID [facility] Last Admin: 04/20/22 08:33 Dose: 10 ml Microbiology 04/18/22 16:27 Blood - Blood Aerobic Blood Culture - Preliminary No growth in 24 hours. 04/18/22 16:27 Blood - Blood Anaerobic Blood Culture - Preliminary No growth in 24 hours. Imagings Data: 04/20 Chest XRay: CLINICAL HISTORY: pneumonia Chest pain. COMPARISON: Chest Single View dated 09/02/2020; Chest Single View dated 08/06/2020; Chest Pa And Lat (2 Views) dated 03/13/2020; Chest Pa And Lat (2 Views) dated 04/27/2019 FINDINGS: Portable technique limits examination quality. Moderate airspace opacity in the left lung base is present compatible with pneumonia. The right lung appears clear. The heart is normal in size. IMPRESSION: Moderate left base pneumonia pattern. Assessment And Plan - Current Problems (Diagnosis) (1) Pneumonia Current Visit: Yes Status: Acute Plan: Cultures: - 04/19 Sputum: Pending - 04/18 BC: Negative - 04/19 COVID, Influenza A and B: Negative Antibiotics: - Rocephin given once, 04/18 - Vancomycin: 04/18 to 04/19 - Recommend to continue Levofloxacin (04/18 to present) - ID will adjust antibiotics when culture is available Pancytopenia: - Hematology consulted ID will closely monitor the patient for signs of infection with fever and WBC trends Qualifiers: Laterality: left Lung location: lower lobe of lung - Plan - Pneumonia: 1. Continue on IV Levofloxacin 2. Pending for sputum and will adjust antibiotic based on susceptibility - Anemia of chronic disease: Continue monitoring H&H - Severe Protein calorie malnutrition: Patient albumin is low, 2.3. Recommend supplemental protein drinks to support proper immunity - Renal insufficiency - Gastritis - COPD - CVA - CAD - Hyperlipidemia - Hypertension - Multiple myeloma - [place] - Meningitis Case has been discussed with Dr. Lofton, N Physician Review: Patient Assessed, Agree with Above Assessment and Plan
--- NOTE | 2022-04-20 12:18 | P.PN ---
Subjective Date of Service: 04/20/22 Chief Complaint: Left lower lobe pneumonia Subjective: Improving (Patient is improving doing well still feels very weak) Review of Systems General: Weakness Respiratory: Shortness of Breath Physical Examination - Vital Signs Temperature: 97.9 F Blood Pressure: 135/64 Pulse: 69 Respirations: 18 Pulse Ox (%): 96 - Physical Exam General: Alert, Oriented x3, Mild distress Respiratory: Crackles/rales (Crackles at the left base) Cardiovascular: No edema, Regular rate/rhythm Assessment And Plan - Current Problems (Diagnosis) (1) Pneumonia Current Visit: Yes Status: Acute Plan: Patient admitted with a left lower lobe pneumonia on VEGF treatment for multiple myeloma which is in remission patient has pancytopenia clinically improving vital signs and oxygenation satisfactory patient is on IV levofloxacin labs are pending sputum cultures pending physical therapy Qualifiers: Laterality: left Lung location: lower lobe of lung Physician Review: Patient Assessed, Agree with Above Assessment and Plan
[2022-04-20] MEDS ORDERED: IPRATROPIUM BROM 0.5MG/2.5ML NEB PRN (12:19)
[2022-04-20 12:59] LABS: Absolute Lymphocytes (CBC) 0.1 K/uL (0.7-4.9); Hematocrit 27.6 % (36.0-45.0); Lymphocytes % 2.8 % (15.3-44.8); MCV 102.5 fL (80-100); MPV 12.4 fL (7.6-11.3); RBC Red Blood Cell Count 2.69 M/uL (3.86-4.86)
[2022-04-20 13:32] LABS: Albumin 2.6 g/dL (3.4-5.0); Bilirubin Total 0.3 mg/dL (0.2-1.0); Magnesium 1.9 mg/dL (1.6-2.4); Protein, Total 6.4 g/dL (6.4-8.2)
[2022-04-20 13:36] LABS: Potassium 2.9 mmol/L (3.5-5.1)
[2022-04-20] MEDS ORDERED: NA CHLORIDE 0.9% 500 ML ONE (13:58)
[2022-04-20] MEDS ORDERED: FUROSEMIDE 20 MG/ 2ML VIAL IV ONE (14:00)
[2022-04-20] MEDS: KCL 20 MEQ/100 mL IVPB 20 MEQ/100 ML BAG IV SCH ×3 (14:12→17:47)
[2022-04-20] MEDS ORDERED: Levofloxacin 750mg IV 750 MG/150 ML BAG IV SCH (16:00)
[2022-04-20] MEDS ORDERED: TBO-FILGRASTIM 300 MCG/0.5 ML SYR SQ SCH (16:00)
[2022-04-20] MEDS ORDERED: TBO-FILGRASTIM 480 MCG/0.8 ML SYR SQ SCH (18:00)
[2022-04-20] MEDS: ATORVASTATIN 40 MG TAB PO SCH (20:10)
[2022-04-20] MEDS: FAMOTIDINE 20 MG TAB PO SCH (20:10)
[2022-04-20] MEDS ORDERED: POTASSIUM CL SA 10 MEQ TAB PO ONE (22:01)
[2022-04-21] MEDS: ALBUTEROL 2.5 MG/3 ML NEB SOL NEB SCH ×4 (02:00→19:50)
[2022-04-21 03:52] LABS: Absolute Lymphocytes (CBC) 0.3 K/uL (0.7-4.9); Lymphocytes % 6.9 % (15.3-44.8); MCV 103.1 fL (80-100); MPV 12.1 fL (7.6-11.3); RBC Red Blood Cell Count 2.33 M/uL (3.86-4.86)
[2022-04-21 04:10] LABS: Albumin 2.3 g/dL (3.4-5.0); Bilirubin Total 0.4 mg/dL (0.2-1.0); Magnesium 1.6 mg/dL (1.6-2.4); Potassium 3.6 mmol/L (3.5-5.1); Protein, Total 5.4 g/dL (6.4-8.2)
[2022-04-21] MEDS ORDERED: POTASSIUM CL SA 10 MEQ TAB PO ONE (06:00)
[2022-04-21] MEDS: SOD FERRIC GLUC COMPLX/SUCROSE 125 MG in NA CHLORIDE 0.9% 100 ML IV SCH (08:38)
[2022-04-21] MEDS: ASPIRIN 81 MG CHEWABLE TABLET PO SCH (08:38)
[2022-04-21] MEDS: CALCIUM CARB 500MG/VIT D 200 IU TAB PO SCH ×2 (08:38→20:22)
[2022-04-21] MEDS: LACTOBACILLUS/ACIDOPHILUS TAB PO SCH ×3 (08:38→20:22)
[2022-04-21] MEDS: HOME MED 1 EA UNK [BIMATOPROST OPHTH DROPS/2.5 ML BTL] OPTH SCH (08:39)
[2022-04-21] MEDS ORDERED: MAGNESIUM SULFATE 1 gm IVPB 1 GM/100 ML BAG IV ONE (09:00)
--- NOTE | 2022-04-21 11:06 | P.PN ---
Subjective Date of Service: 04/21/22 Chief Complaint: SOB Patient sitting in bed ready to eat lunch and family member at the bedside. Not in cardiopulmonary distress. Patient was very pleasant and reported feeling well. Physical Examination - Vital Signs Temperature: 96.3 F Blood Pressure: 135/68 Pulse: 85 Respirations: 14 Pulse Ox (%): 98 - Physical Exam General: Alert, In no apparent distress, Oriented x3 Respiratory: Clear to auscultation bilaterally Cardiovascular: No edema, Normal pulses, Normal S1 S2 Gastrointestinal: Normal bowel sounds Musculoskeletal: No swelling, No tenderness Integumentary: No rashes, No breakdown Neurological: Normal speech, Normal tone, Normal affect - Studies Current Medications: Acetaminophen (Acetaminophen 500 Mg Tab) 500 mg PO Q4HP PRN PRN Reason: TEMP > 100.4' F OR MILD PAIN Last Admin: 04/18/22 20:00 Dose: 500 mg Hydrocodone Bitart/Acetaminophen (Hydrocodone/Apap 5/325 Mg Tab) 1 tab PO Q6H PRN PRN Reason: Pain scale 5-7 (Moderate) Albuterol Sulfate (Albuterol 2.5 Mg/3 Ml Neb Ingrid) 2.5 mg NEB [id number] [facility] Last Admin: 04/21/22 08:53 Dose: 2.5 mg Aspirin (Aspirin 81 Mg Chewable Tablet) 81 mg PO DAILY [facility] Last Admin: 04/21/22 08:38 Dose: 81 mg Atorvastatin Calcium (Atorvastatin 40 Mg Tab) 40 mg PO BEDTIME [facility] Last Admin: 04/20/22 20:10 Dose: 40 mg Benzonatate (Benzonatate 100 Mg Cap) 200 mg PO TID PRN PRN Reason: COUGH Last Admin: 04/20/22 21:09 Dose: 200 mg Calcium Carbonate (Calcium Carb 500mg/Vit D 200 Iu Tab) 1 tab PO BID [facility] Last Admin: 04/21/22 08:38 Dose: 1 tab Famotidine (Famotidine 20 Mg Tab) 20 mg PO BEDTIME [facility]; Protocol Last Admin: 04/20/22 20:10 Dose: 20 mg Home Med (Home Med 1 Ea Unk [Bimatoprost Ophth Drops/2.5 Ml Btl]) 1 ea OPTH DAILY [facility] Last Admin: 04/21/22 08:39 Dose: 1 ea Home Med (Lenalidomide [Revlimid]) 10 mg PO DAILY [facility] Last Admin: 04/20/22 08:33 Dose: 10 mg Levofloxacin/Dextrose (Levaquin 750 Mg/150 Ml Ivpb (Premix)) 750 mg in 150 mls @ 100 mls/hr IV Q48H [facility]; Protocol Last Admin: 04/20/22 15:37 Dose: 150 mls Ferric Sodium Gluconate Complex 125 mg/ Sodium Chloride 110 mls @ 100 mls/hr IV DAILY [facility] Stop: 04/26/22 10:05 Last Admin: 04/21/22 08:38 Dose: 110 mls Ipratropium Aurora (Ipratropium Brom 0.5mg/2.5ml) 0.5 mg NEB [id number] PRN PRN Reason: SHORTNESS OF BREATH Lactobacillus Acidoph/Bulgaricus (Lactobacillus/Acidophilus Tab) 1 tab PO TID [facility] Last Admin: 04/21/22 08:38 Dose: 1 tab Ondansetron HCl (Ondansetron 4 Mg/2 Ml Vial) 4 mg IV Q6HP PRN PRN Reason: NAUSEA / VOMITING Sodium Chloride (Flush Normal Saline 10 Ml) 10 ml IV BID [facility] Last Admin: 04/21/22 08:39 Dose: 10 ml Microbiology 04/18/22 16:27 Blood - Blood Aerobic Blood Culture - Preliminary No growth in 24 hours. 04/18/22 16:27 Blood - Blood Anaerobic Blood Culture - Preliminary No growth in 24 hours. Assessment And Plan - Current Problems (Diagnosis) (1) Pneumonia Current Visit: Yes Status: Acute Plan: Cultures: - 04/19 Sputum: Pending - 04/18 BC: Negative - 04/19 COVID, Influenza A and B: Negative Antibiotics: - Rocephin given once, 04/18 - Vancomycin: 04/18 to 04/19 - Recommend to continue Levofloxacin (04/18 to present) - ID will adjust antibiotics when culture is available Pancytopenia: - Hematology consulted ID will closely monitor the patient for signs of infection with fever and WBC trends Qualifiers: Laterality: left Lung location: lower lobe of lung - Plan - Pneumonia: 1. Continue on IV Levofloxacin 2. Pending for sputum and will adjust antibiotic based on susceptibility - Anemia of chronic disease: Continue monitoring H&H - Severe Protein calorie malnutrition: Patient albumin is low, 2.3. Recommend supplemental protein drinks to support proper immunity - Renal insufficiency - Gastritis - COPD - CVA - CAD - Hyperlipidemia - Hypertension - Multiple myeloma - [place] - Meningitis Case has been discussed with Dr. Lofton N Physician Review: Patient Assessed, Agree with Above Assessment and Plan
[2022-04-21] MEDS: ATORVASTATIN 40 MG TAB PO SCH (20:23)
[2022-04-21] MEDS: FAMOTIDINE 20 MG TAB PO SCH (20:23)
[2022-04-22] MEDS: ALBUTEROL 2.5 MG/3 ML NEB SOL NEB SCH ×4 (01:30→19:05)
[2022-04-22 04:09] LABS: Magnesium 1.7 mg/dL (1.6-2.4); Potassium 3.7 mmol/L (3.5-5.1)
--- NOTE | 2022-04-22 07:51 | P.PN ---
Date of Service: 04/20/22 Subjective Patient doing better. Clinically much improved. Respiratory status is better. Will discuss with Oncology regarding treatment for multiple myeloma. Otherwise continue with antibiotic therapy. Physical Examination - Physical Exam General: Alert, Oriented x3, Cooperative, Mild distress Respiratory: Diminished, basilar fine crackles Cardiovascular: No edema, Regular rate/rhythm, Normal S1 S2, No murmurs Gastrointestinal: Normal bowel sounds, Non-distended, No tenderness Musculoskeletal: No clubbing, No swelling, No contractures, No tenderness Integumentary: No rashes, No breakdown, No significant lesion Neurological: Generalized weakness but strength has improved. Assessment and Plan -Assessment 1. Left lower lobe pneumonia 2. History of multiple myeloma 3. Lenalidomide(follows interstitial lung disease, eosinophilic pneumonia, pneumonitis) 4. Pancytopenia -Plan 1. Continue with IV antibiotics 2. Awaiting sputum and blood culture 3. Repeat chest x-ray 4. CT scan of the chest reviewed 5. Appreciate pulmonary consultation 6. Continue with nebs as needed 7. O2 per protocol 8. Hep-Lock IV 9. Repeat labs including CBC; spoke with hematology regarding her multiple myeloma treatment-Lenalidomide. Appreciate their recommendations which included Neupogen and iron supplementation. Because of its association with pulmonary side effects we will hold off at this time. Removed significantly from yesterday. Continue to monitor. 10. GI and DVT prophylaxis
--- NOTE | 2022-04-22 07:52 | P.PN ---
Date of Service: 04/21/[address] Kwan patient's oncologist at [facility] ([facility]) and he wants to hold off on patient's multiple myeloma treatment. Patient was a little more short of breath lying in bed today. We did stop her steroids. I may resume this if her x-ray shows any worsening. Anticipate discharge over the next 48 hours. Leukopenia improved with Neupogen. Physical Examination - Physical Exam General: Alert, Oriented x3, Cooperative, Mild distress Respiratory: Diminished, basilar fine crackles Cardiovascular: No edema, Regular rate/rhythm, Normal S1 S2, No murmurs Gastrointestinal: Normal bowel sounds, Non-distended, No tenderness Musculoskeletal: No clubbing, No swelling, No contractures, No tenderness Integumentary: No rashes, No breakdown, No significant lesion Neurological: Generalized weakness but strength has improved. Assessment and Plan -Assessment 1. Left lower lobe pneumonia 2. History of multiple myeloma 3. Lenalidomide(follows interstitial lung disease, eosinophilic pneumonia, pneumonitis) 4. Pancytopenia -Plan 1. Continue with IV antibiotics 2. Awaiting sputum and blood culture 3. Repeat chest x-ray 4. CT scan of the chest reviewed 5. Appreciate pulmonary consultation 6. Continue with nebs as needed 7. O2 per protocol 8. Hep-Lock IV 9. Monitor CBC. Patient with pancytopenia. Holding the lenalidomide. 10. GI and DVT prophylaxis
[2022-04-22] MEDS: CALCIUM CARB 500MG/VIT D 200 IU TAB PO SCH ×2 (08:33→20:59)
[2022-04-22] MEDS: HOME MED 1 EA UNK [BIMATOPROST OPHTH DROPS/2.5 ML BTL] OPTH SCH (08:33)
[2022-04-22] MEDS: ASPIRIN 81 MG CHEWABLE TABLET PO SCH (08:33)
[2022-04-22] MEDS: LACTOBACILLUS/ACIDOPHILUS TAB PO SCH ×3 (08:33→20:58)
[2022-04-22] MEDS: BENZONATATE 100 MG CAP PO PRN (08:34)
--- NOTE | 2022-04-22 08:53 | RAD REPORT ---
EXAM DESCRIPTION: RAD - Chest Single View - 04/22/2022 5:35 am CLINICAL HISTORY: pneumonia Chest pain. COMPARISON: Chest Single View dated 04/20/2022; Chest Single View dated 09/02/2020; Chest Single View dated 08/06/2020; Chest Pa And Lat (2 Views) dated 03/13/2020 FINDINGS: Portable technique limits examination quality. Since 04/20/2022, there has been mild improvement in left base consolidation. The right lung remains clear. The heart is mildly prominent. No displaced fractures. IMPRESSION: Mild improvement in left base aeration since comparative study.
[2022-04-22] MEDS ORDERED: MAGNESIUM SULFATE 1 gm IVPB 1 GM/100 ML BAG IV ONE (09:00)
[2022-04-22] MEDS ORDERED: POTASSIUM CL SA 10 MEQ TAB PO ONE (09:00)
[2022-04-22] MEDS: SOD FERRIC GLUC COMPLX/SUCROSE 125 MG in NA CHLORIDE 0.9% 100 ML IV SCH (09:00)
[2022-04-22] MEDS ORDERED: levoFLOXacin 750 MG TAB PO SCH (15:00)
--- NOTE | 2022-04-22 20:18 | PN ---
Subjective: Patient is sitting in bed, not in any acute cardiopulmonary distress. Objective: Vital Signs: Temperature 97, pulse 98, respiration 16, blood pressure 150/63. Lungs: Basal crackles. Heart: S1, S2. Regular. Abdomen: Soft, nontender. Bowel sounds present. Extremities: Trace edema. Laboratory Data: Reviewed. Medications: Patient is currently on Levaquin. Assessment And Plan: Pneumonitis, pancytopenia, chronic obstructive pulmonary disease, stroke, histo ry of multiple myeloma. Continue current treatment. No other recommendation at this time. NF/MODL Voice ID: [id number] Report ID: [id number]
[2022-04-22] MEDS: FAMOTIDINE 20 MG TAB PO SCH (20:58)
[2022-04-22] MEDS: ATORVASTATIN 40 MG TAB PO SCH (20:59)
[2022-04-23] MEDS: BENZONATATE 100 MG CAP PO PRN (00:49)
[2022-04-23] MEDS: ALBUTEROL 2.5 MG/3 ML NEB SOL NEB SCH ×2 (01:20→09:42)
[2022-04-23 08:44] LABS: Magnesium 1.5 mg/dL (1.6-2.4); Potassium 3.4 mmol/L (3.5-5.1)
[2022-04-23] MEDS: CALCIUM CARB 500MG/VIT D 200 IU TAB PO SCH (09:54)
[2022-04-23] MEDS: SOD FERRIC GLUC COMPLX/SUCROSE 125 MG in NA CHLORIDE 0.9% 100 ML IV SCH (09:54)
[2022-04-23] MEDS: LACTOBACILLUS/ACIDOPHILUS TAB PO SCH (09:54)
[2022-04-23] MEDS: ASPIRIN 81 MG CHEWABLE TABLET PO SCH (09:54)
[2022-04-23] MEDS: HOME MED 1 EA UNK [BIMATOPROST OPHTH DROPS/2.5 ML BTL] OPTH SCH (09:55)
[2022-04-23 10:45] VITALS: O2SAT 99
[2022-04-23 12:04] VITALS: BP 137/69; TEMP 97.6
[2022-04-23 12:29] LABS: Absolute Lymphocytes (CBC) 0.9 K/uL (0.7-4.9); Lymphocytes % 25.6 % (15.3-44.8); MCV 102.1 fL (80-100); MPV 12.4 fL (7.6-11.3); RBC Red Blood Cell Count 2.54 M/uL (3.86-4.86)
[2022-04-23 13:49] LABS: Blood Morphology Comment NOT SEEN (NOT SEEN); Platelet Estimate DECR; Platelets, Giant PRESENT; White Blood Cell Scan OK (OK)
== END 2022-04-23 14:20 | disposition home or self-care (01) | DRG 871 ==
LOC: ER 15:24 → ERHOLD 16:40 → 4TH 04-19 07:59
PROVIDERS: ADMIT Hospitalist; ATTEND Hospitalist
DX: A41.9 Sepsis, unspecified organism (principal); E43 Unspecified severe protein-calorie malnutrition; G92.9 Unspecified toxic encephalopathy; J18.9 Pneumonia, unspecified organism; G03.9 Meningitis, unspecified; Z94.81 Bone marrow transplant status; D61.818 Other pancytopenia; J44.0 Chronic obstructive pulmonary disease with (acute) lower respiratory infection; C90.01 Multiple myeloma in remission; R65.20 Severe sepsis without septic shock; I12.9 Hypertensive chronic kidney disease with stage 1 through stage 4 chronic kidney disease, or unspecified chronic kidney disease; N18.32 Chronic kidney disease, stage 3b; D63.1 Anemia in chronic kidney disease; E78.5 Hyperlipidemia, unspecified; K21.9 Gastro-esophageal reflux disease without esophagitis; K29.70 Gastritis, unspecified, without bleeding; N28.9 Disorder of kidney and ureter, unspecified; I25.10 Atherosclerotic heart disease of native coronary artery without angina pectoris; I25.2 Old myocardial infarction; Z56.0 Unemployment, unspecified; Z86.73 Personal history of transient ischemic attack (TIA), and cerebral infarction without residual deficits; Z68.26 Body mass index [BMI] 26.0-26.9, adult; Z98.51 Tubal ligation status; Z79.82 Long term (current) use of aspirin; Z79.899 Other long term (current) drug therapy; Z87.891 Personal history of nicotine dependence; Z20.822 Contact with and (suspected) exposure to COVID-19
CPT/HCPCS: 0240U; 36415; 71045; 71275; 80048; 80053; 80061; 82533; 82607; 82728; 82747; 83540; 83605; 83735; 83880; 84100; 84132; 84145; 84439; 84443; 85025; 86850; 86900; 86901; 87040; 93306; 94010; 94640; 94760; 96374; 96375; 97110; 97116; 97161; 97165; 99283; J1447; J1650; J1940; J2916; J2920; J3370; J3475; J3480; J7030; J7040; J7050; J7613; J7644; P9047; Q9967

== ENCOUNTER 2022-09-10 11:56 | Inpatient (IN) | payer OTHER ==
--- OUTSIDE RECORDS SUMMARY | 2022-09-10 12:02 | XMS REPORT | Clinical Summary ---
:1950 Author Organization [facility] MD [facility] Center Address [address] [place] [address] Care Team Providers Name Role Phone Davide Agudelo MD Unavailable [phone] Con Kwan MD Primary Care Provider Daily Kingsley Unavailable Mitchell Ramírez MD Unavailable Unavailable Wayne Ugalde DMD Unavailable Florencia Betancourt DDS Unavailable Allergies No known active allergies Medications Medication Sig Dispensed Refills Start End Status Date Date bimatoprost (LUMIGAN) Administer 1 0 Active 0.01% ophthalmic drops drop to both eyes at bedtime. cholecalciferol, Take 1 tablet 0 Active vitamin D3, 400 units (400 Units) by tablet mouth twice daily. calcium Take 1 tablet 0 Active carbonate-vitamin D3 by mouth twice 500 mg-10 mcg (400 daily. unit) tab atorvastatin (LIPITOR) Take 1 tablet 0 Active 80 mg tablet (80 mg) by mouth daily. losartan 50 mg tab 100 Take 1 tablet 0 Active mg, hydroCHLOROthiazide by mouth 25 mg tab 25 mg daily. aspirin 81 mg EC tablet Take 1 tablet 0 Active (81 mg) by mouth daily. omeprazole (PriLOSEC) Take 1 capsule 0 Active 40 MG capsule (40 mg) by mouth every morning before breakfast. latanoprost (XALATAN) Administer 1 0 06/19/19 Active 0.005% ophthalmic drop to both 22 solution eyes daily. calcium Take 1 tablet 0 Active carbonate-vitamin D3 by mouth 2 ([id number]+D) 1,500 (two) times a mg - 400 units (600 mg day with elemental calcium per meals. tablet) per tablet denosumab (PROLIA Inject 1 0 Ac tive SUBCUTANEOUS) Syringe under the skin every 6 (six) months. valACYclovir (VALTREX) TAKE 1 TABLET 90 tablet 3 08/19/19 Active 500 mg BY MOUTH EVERY 23 tabletIndications: DAY Multiple myeloma lenalidomide (REVLIMID) Take 10 mg by 0 Discontinued capsule 10 mouth. For (Not mgIndications: multiple days then 7 Applicable) myeloma days off LORazepam (ATIVAN) 1 mg 0 08/03/19 Discontinued tablet 023 (Not Applicable ) lansoprazole (PREVACID) Take 30 mg by 0 06/17/[address] capsule mouth daily. 023 (Not Applicable ) valACYclovir (VALTREX) Take 1 tablet 90 tablet 3 08/07/1902/09 Discontinued 500 mg (500 mg) by tabletIndications: mouth daily. Multiple myeloma potassium chloride Take 1 tablet 3 tablet 0 01/29/20 Discontinued (Klor-Con M20) 20 mEq (20 mEq) by 023 (Not tabletIndications: mouth daily. Applicable) Multiple myeloma Take with food LORazepam (Ativan) 1 mg Take 1 tablet [...] Encounters Date Type Specialty Care Team Description 08/17/2022 Refill Lymphoma and Fouzia Das Multiple myeloma Myeloma L, BISQUE FINISHER 08/12/2022 Follow-Up Lymphoma and Con Kwan MD Multiple my eloma (Primary Dx); Myeloma Lung nodule 08/12/2022 Travel 08/09/2022 Ancillary Radiology Fouzia Das Multiple myeloma Procedure L, BISQUE FINISHER 08/09/2022 Hospital Encounter Lab Fouzia Das myeloma L, BISQUE FINISHER 08/09/2022 Hospital Encounter Lab Fouzia Das myeloma L, BISQUE FINISHER 08/09/2022 Travel 01/28/2022 Office Visit Lymphoma and Con Kawn MD Multiple my eloma Myeloma (Primary Dx) 01/28/2022 Travel 01/26/2022 Hospital Encounter Lab Fouzia Das [place]ita myeloma L, BISQUE FINISHER 01/26/2022 Hospital Encounter Lab Fouzia Das myeloma L, BISQUE FINISHER after 09/10/2021 Immunizations Name Administration Dates Next Due Pfizer SARS-CoV-2 Vaccination (Purple 11/27/2020, 1, 05/07/2020 Cap) DTaP / IPV 03/01/2019, 12/06/2018, 09/04/2018 Hepatitis B 03/01/2019, 12/06/2018, 09/04/2018 Hib (PRP-OMP) 03/01/2019, 12/06/2018, 09/04/2018 Influenza TIV (IM) 02/02/2022 Pfizer SARS-CoV-2 Bivalent Booster 12+ 02/02/2022 y.o. (30 mcg/0.3 mL) Pfizer SARS-CoV-2 Vaccination 12+ y.o. 11/23/2021, Pneumococcal Conjugate 13-Valent 03/01/2019, 12/06/2018, Surgical History [...] -Gastrointestinal (Esophagus, Liver, Bile Duct, Father Primitivo Trejo Stomach, Pancreas, Colon, Rectum, Anus Coronary heart disease (CHD) Mother Debo Trejo Diabetes Mother Debo Trejo Hypertension Mother Debo Trejo Stroke Mother Debo Trejo Relation Name Status Comments Father Primitivo Trejo Mother Debo Trejo Social History Tobacco Use Types Packs/Day Years Used Date Smoking Tobacco: Former Cigarettes 1 30 07/1968 - 12/19/2014 Smokeless Tobacco: Never Alcohol Use Standard Drinks/Week Comments No 0 (1 standard drink = 0.6 oz pure alcoho l) Sex Assigned at Date Recorded Not on file COVID-19 Exposure Response Date Recorded In the last 10 days, have you been in contact with No / Unsu re 08/12/2022 8:59 AM CDT someone who was confirmed or suspected to have Coronavirus/COVID-19? 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 Plan of Treatment Date Type Specialty Care Team Description 02/08/2023 Appointment Anesthesiology Ariadne Ashton PA [address], [place] [address] (Wo rk) 02/08/2023 Appointment Lab Ariadne Ashton PA [address], [place] [address] (Wo rk) 02/08/2023 Appointment Lab Ariadne Ashton PA [address], [place] [address] (Wo rk) 02/08/2023 Appointment Radiology Ariadne Ashton PA [address] [place] [address] (Wo rk) 02/10/2023 Follow-Up Lymphoma and Myeloma Con Kwan MD [address] [place], [place] [address] (Wo rk) Health Maintenance Due Date Last Done Comments COVID-19 Vaccination Completed 02/02/2022, 11/23/2021, , Additional history exists Medical Devices Implanted Type Area Customer Orders Clerk Device Identifier Shelf Exp iration Model / Date Serial / L ot Stent-06/08/2016 Stent Implanted: 06/08/2016 (Quantity not on file) Description: heart stent after a heart a ttack Procedures Procedure Name Priority Date/Time Associated Comments Diagnosis MRI WHOLE BODY - BONE Routine 08/09/2022 11:48 Multiple myelom a Results for this MARROW AM CDT procedure are i n the results section. .DR. MEDINA EDMAR PATH Routine 08/09/2022 9:08 Re sults for this REVIEW AM CDT procedure are i n the results section. .DR. MEDINA PROT ELEC Routine 08/09/2022 9:08 R esults for this PATH REVIEW AM CDT procedure are i n the results section. FREE KAPPA/FREE LAMBDA Routine 08/09/2022 9:08 Re sults for this RATIO AM CDT procedure are i n the results section. FRACTIONATED BILIRUBIN Routine 08/09/2022 9:08 Multiple myelom a Results for this AM CDT procedure are i n the results section. TOTAL PROTEIN Routine 08/09/2022 9:08 Multiple myeloma Results for this AM CDT procedure are i n the results section. ASPARTATE Routine 08/09/2022 9:08 Multiple myeloma Results for this AMINOTRANSFERASE AM CDT procedure a re in the results section. ALANINE AMINOTRANSFERASE Routine 08/09/2022 9:08 Multiple myel nolberto Results for this AM CDT procedure are i n the results section. ALKALINE PHOSPHATASE Routine 08/09/2022 9:08 Multiple myeloma Results for this AM CDT procedure are i n the results section. ALBUMIN LEVEL Routine 08/09/2022 9:08 Multiple myeloma Results for this AM CDT procedure are i n the results section. CALCIUM LEVEL TOTAL Routine 08/09/2022 9:08 Multiple myeloma R esults for this AM CDT procedure are i n the results section. .GLOMERULAR FILTRATION Routine 08/09/2022 9:08 Multiple myelom a Results for this RATE AM CDT procedure are i n the results section. SERUM CREATININE Routine 08/09/2022 9:08 Multiple myeloma Resu lts for this AM CDT procedure are i n the results section. ELECTROLYTE PANEL Routine 08/09/2022 9:08 Multiple myeloma Res ults for this AM CDT procedure are i n the results section. BLOOD UREA NITROGEN Routine 08/09/2022 9:08 Multiple myeloma R esults for this AM CDT procedure are i n the results section. GLUCOSE LEVEL Routine 08/09/2022 9:08 Multiple myeloma Results for this AM CDT procedure are i n the results section. MANUAL DIFFERENTIAL Routine 08/09/2022 9:08 Multiple myeloma R esults for this AM CDT procedure are i n the results section. Results CBC Routine 08/09/2022 9:08 Multiple myeloma Results for this AM CDT procedure are i n the results section. LACTATE DEHYDROGENASE Routine 08/09/2022 9:08 Multiple myeloma Results for this AM CDT procedure are i n the results section. BETA 2 MICROGLOBULIN Routine 08/09/2022 9:08 Multiple myeloma Results for this AM CDT procedure are i n the results section. IMMUNOFIXATION Routine 08/09/2022 9:08 Multiple myeloma Result s for this ELECTROPHORESIS AM CDT procedure ar e in the results section. PROTEIN ELECTROPHORESIS, Routine 08/09/2022 9:08 Multiple myel nolberto Results for this SERUM AM CDT procedure are i n the results section. FREE LAMBDA LIGHT CHAIN Routine 08/09/2022 9:08 Multiple myelo ma Results for this AM CDT procedure are i n the results section. FREE KAPPA LIGHT CHAIN Routine 08/09/2022 9:08 Multiple myelom a Results for this AM CDT procedure are i n the results section. IMMUNOGLOBULIN M SERUM Routine 08/09/2022 9:08 Multiple myelom a Results for this AM CDT procedure are i n the results section. IMMUNOGLOBULIN G SERUM Routine 08/09/2022 9:08 Multiple myelom a Results for this AM CDT procedure are i n the results section. IMMUNOGLOBULIN A SERUM Routine 08/09/2022 9:08 Multiple myelom a Results for this AM CDT procedure are i n the results section. URIC ACID Routine 08/09/2022 9:08 Multiple myeloma Results for this AM CDT procedure are i n the results section. PHOSPHORUS LEVEL Routine 08/09/2022 9:08 Multiple myeloma Resu lts for this AM CDT procedure are i n the results section. MAGNESIUM LEVEL Routine 08/09/2022 9:08 Multiple myeloma Resul ts for this AM CDT procedure are i n the results section. COMPREHENSIVE METABOLIC Routine 08/09/2022 9:08 Multiple myelo ma PANEL AM CDT COMPLETE BLOOD COUNT W/ Routine 08/09/2022 9:08 Multiple myelo ma DIFFERENTIAL AM CDT .DR. SAAVEDRA UISNEHAL PATH Routine 08/09/2022 5:00 Resu lts for this REVIEW AM CDT procedure are i n the results section. .DR. SAAVEDRA U PROT ELEC Routine 08/09/2022 5:00 Re sults for this PATH REVIEW AM CDT procedure are i n the results section. .TOTAL VOLUME Routine 08/09/2022 5:00 Results for this AM CDT procedure are i n the results section. URINE TOTAL PROTEIN Routine 08/09/2022 5:00 Resul ts for this AM CDT procedure are i n the results section. IMMUNOFIXATION Routine 08/09/2022 5:00 Multiple myeloma Result s for this ELECTROPHORESIS URINE AM CDT proced ure are in the results section. PROTEIN ELECTROPHORESIS Routine 08/09/2022 5:00 Multiple myelo ma Results for this URINE AM CDT procedure are i n the results section. .DR. SAAVEDRA EDMAR PATH Routine 01/26/2022 9:30 Resul ts for [...] are i n the results section. after 09/10/2021 Results MRI Whole Body - Bone Marrow (08/09/2022 11:48 AM CDT) Anatomical Region Laterality Modality Whole Body Magnetic Resonance Specimen (Source) Anatomical Collection Method Collection Time Re ceived Time Location / / Volume Laterality 08/10/2022 1:56 PM CDT Impressions 08/10/2022 2:06 PM CDT 1. Redemonstration of treated right iliac plasmacytoma. 2. Hemangioma of the T12 vertebral bod y. 3. Otherwise no evidence of active mye lomatous lesions or extramedullary disease. 4. Left basilar lung nodule of uncerta in nature and can be assessed with CT chest. Narrative 08/10/2022 2:06 PM CDT FULL RESULT: Examination: MRI WHOLE BODY - BONE VANESSA W, 08/09/2022 11:48 AM. Clinical [facility]: [facility] 71[facility] autologous stem cell transplant in 2018, on maintenance therapy Indication: myleoma restaging Comparison: MRI 08/05/2021 Technique: Whole-body magnetic resonance imaging was performed without intravenous administration of contrast. Findings: Pattern of bone disease: Focal lesion(s) Number of active focal lesions: 1 Examples of active focal bone lesions: T here is a treated plasmacytoma measuring 6 cm within the right iliac wing with an ADC value of 2.8 measuring 4.5 cm (series 40/140 and series 24 image 25). Soft tissue masses associated with bone lesions: Absent Infiltration of the long bones: Absent Vertebral fractures: No acute fracture Other fractures: No acute fracture Posterior iliac crests: No potential for sampling error: posterior iliac marrow similar to marrow elsewhere. Extramedullary disease: Absent Other pertinent positive and negative fi ndings: Suspected small fat containing T12 heman gioma (series 56 image 10). Small pulmonary nodule within the left l ower lung flexor tendon nature to the cyst by CT chest if clinically indicated, not present on CT 09/03/2020 Procedure Note Melvin Jimenez MD - 08/10/2022F ormatting of this note might be different from the original. FULL RESULT: Examination: MRI WHOLE BODY - BONE VANESSA W, 08/09/2022 11:48 AM. Clinical History: A 71-year-old female p atient with multiple myeloma status post autologous stem cell transplant in 2018, on maintenance therapy Indication: myleoma restaging Comparison: MRI 08/05/2021 Technique: Whole-body magnetic resonance imaging was performed without intravenous administration of contrast. Findings: Pattern of bone disease: Focal lesion(s) Number of active focal lesions: 1 Examples of active focal bone lesions: T here is a treated plasmacytoma measuring 6 cm within the right iliac wing with an ADC value of 2.8 measuring 4.5 cm (series 40/140 and series 24 image 25). Soft tissue masses associated with bone lesions: Absent Infiltration of the long bones: Absent Vertebral fractures: No acute fracture Other fractures: No acute fracture Posterior iliac crests: No potential for sampling error: posterior iliac marrow similar to marrow elsewhere. Extramedullary disease: Absent Other pertinent positive and negative fi ndings: Suspected small fat containing T12 heman gioma (series 56 image 10). Small pulmonary nodule within the left l ower lung flexor tendon nature to the cyst by CT chest if clinically indicated, not present on CT 09/03/2020 IMPRESSION: 1. Redemonstration of treated right vida c plasmacytoma. 2. Hemangioma of the T12 vertebral body. 3. Otherwise no evidence of active myelo matous lesions or extramedullary disease. 4. Left basilar lung nodule of uncertain nature and can be assessed with CT chest. Fouzia Das APRN IMG MRI ORDERABLES (ABNORMAL) .Serum Creatinine (08/09/2022 9:08 AM CDT)Only the most recent of2 resultswithin the time period is included. athologist Signature Creatinine 1.24 (H) 0.51 - [place] [facility] 0.95 mg/dL [facility] Specimen Anatomical Collection Method Collection Time Receive d Time (Source) Location / / Volume Laterality Blood 08/09/2022 9:08 AM 9:29 CDT AM CDT Fouzia Das APRN LAB BLOOD ORDERABLES Performing Organization Address City/State/ZIP Code Phon e Number [place] [facility] Unless otherwise noted, [place], [place] [phone] CENTER all lab tests performed by: Division of Pathology and Laboratory Medicine [place] [place] (ABNORMAL) .CBC (08/09/2022 9:08 AM CDT)Only the most recent of2 resultswithin the time period is included. Analysis Performed At Patho logist Time Signature WBC 7.2 4.0 - 11.0 [facility] K/uL [facility] RBC 3.21 (L) 4.00 - [facility] 5.50 M/uL [facility] Hgb 11.4 (L) 12.0 - [facility] 16.0 gm/dL [facility] Hct 32.9 (L) 37.0 - [facility] 47.0 % [facility] MCV 102 (H) 82 - 98 fL [facility] MCH 35.5 (H) 27.0 - [facility] 31.0 pg [facility] MCHC 34.7 31.0 - [facility] 36.0 gm/dL [facility] RDW-SD 51.2 (H) 35.1 - [facility] 46.3 fL [facility] RDW-CV 13.5 12.0 - [facility] 15.5 % [facility] Platelet count 290 140 - 440 [facility] K/uL [facility] MPV 10.4 4.0 - 10.4 [facility] INRBC 0.0 <=0.0 % [facility] [place] Comment: The INRBC (instrument NRBC) value reflec [...] (Source) Location / / Volume Laterality Blood 08/09/2022 9:08 AM 9:17 CDT AM CDT Fouzia Das APRN LAB BLOOD ORDERABLES Performing Organization Address City/State/ZIP Code Phon e Number [facility] Unless otherwise noted, [place] [address] CENTER all lab tests performed by: Division of Pathology and Laboratory Medicine [place] Protein Electrophoresis Path Review (08/09/2022 9:08 AM CDT) Component Value Ref Test Analysis Performed At Patholo gist Range Method Time Signature SPE Path The follow-up serum protein electrophoretic pattern shows indistinct peaks in the gamma region. If a paraproteinemia is suspected clinically, serum free light chain studies, serum protein EDMAR studies, serum immunoglobulin quantitation and urine [place] Interp Bence-Liang protein studies are recommended. [facility] [place] Comment: MD Gary VALERIO [id number] Dictated by: MD Gary VALERIO Dictated Date/Time: 08.15.2022 15:00 PM CDT Transcribed Date/Time: 08.15.2022 15:00 PM CDT Electronically Signed By: MD Gary LOPEZ on 08.15.2022 15:00 PM Specimen Anatomical Collection Method Collection Time Receive d Time (Source) Location / / Volume Laterality Blood 08/09/2022 9:08 AM 9:49 CDT AM CDT Fouzia Das APRN LAB BLOOD ORDERABLES Performing Organization Address City/State/ZIP Code Phon e Number [facility] Unless otherwise noted, [place] [address] [place] all lab tests performed by: Division of Pathology and Laboratory Medicine [facility]5 [place] EDMAR Path Review (08/09/2022 9:08 AM CDT) Component Value Ref Test Analysis Performed At [facility] gist Range Method Time Signature EDMAR Path Int The follow up serum protein immunofixation electrophoretic patterns obtained with the use of antisera against IgG, IgA, IgM, bound kappa and bound lambda light chain proteins are suggestive of an oligoclonal gammopathy, although the possibility of a [place] residual M-protein with an a ssociated oligoclonal gammopathy can neither be confirmed nor excluded. [facility] [place] Comment: MD Gary VALERIO [id number] Dictated by: MD Gary VALERIO67 Dictated Date/Time: 08.15.2022 15:00 PM CDT Transcribed Date/Time: 08.15.2022 15:00 PM CDT Electronically Signed By: JAMIE JIANG MD - [id number] on 08.15.2022 15:00 PM Specimen Anatomical Collection Method Collection Time Receive d Time (Source) Location / / Volume Laterality Blood 08/09/2022 9:08 AM 3 9:49 CDT AM CDT Fouzia Das APRN LAB BLOOD ORDERABLES Performing Organization Address City/State/ZIP Code Phon e Number [facility] Unless otherwise noted, [address] all lab tests performed by: Division of Pathology and Laboratory Medicine [address] [place] [address] Free [place]utter/Free Lambda Ratio (08/09/2022 9:08 AM CDT)Only the most recent of2 resultswithin the time period is included. athologist Signature FKap/FLam RT 1.20 0.26 - 1.65 [facility] Specimen Anatomical Collection Method Collection Time Receive d Time (Source) Location / / Volume Laterality Blood 08/09/2022 9:08 AM 3 CDT 12:36 PM CDT Fouzia Das APRN LAB BLOOD ORDERABLES Performing Organization Address City/[facility] Phon e Number [facility] Unless otherwise noted, [address] all lab tests performed by: Division of Pathology and Laboratory Medicine [facility] (ABNORMAL) Glomerular Filtration Rate (08/09/2022 9:08 AM CDT)Only the most recent of2 resultswithin the time period is included. P athologist Signature eGFR 46 (L) >=60 [facility] mL/min/1.73 DIAG[facility]STIC sq. m CENTER Comment: [...] (Source) Location / / Volume Laterality Blood 08/09/2022 9:08 AM 9:29 CDT AM CDT Fouzia Das APRN LAB BLOOD ORDERABLES Performing Organization Address City/[facility] Phon e Number [facility] Unless otherwise noted, [place] [phone] CENTER all lab tests performed by: Division of Pathology and Laboratory Medicine [facility]5 [facility] Fractionated Bilirubin (08/09/2022 9:08 AM CDT)Only the most recent of2 results within the time period is included. athologist Signature Bili Total 0.4 <=1.2 mg/dL [facility] Comment: Indocyanine Green (ICG) may cause falsel y elevated bilirubin results. Total and direct bilirubin must not be measured from samples containing indocyanine green. False elevation of total bilirubin can b e seen in patients with IgG concentrations above 28 g/L. Bili Direct <0.2 <=0.3 mg/dL [place] [facility] Comment: Indocyanine Green (ICG) may cau se falsely elevated bilirubin results. Total and direct bilirubin must not be measure d from samples containing indocyanine green. Bili Indirect See Note 0.0 - 0.9 mg/dL [place] [facility] Comment: Unable to calculate Indirect Bi lirubin result due to some parameters are outside reportable range Specimen Anatomical Collection Method Collection Time Receive d Time (Source) Location / / Volume Laterality Blood 08/09/2022 9:08 AM 9:29 CDT AM CDT Fouzia Das APRN LAB BLOOD ORDERABLES Performing Organization Address City/State/[facility] e Number [facility] Unless otherwise noted, [place], [place] [address] [place] all lab tests performed by: Division of Pathology and Laboratory Medicine [address] [place] (ABNORMAL) Free Lambda Light Chain (08/09/2022 9:08 AM CDT)Only the most recent of2 resultswithin the time period is included. athologist Signature Free Lambda 28.09 (H) 5.71 - [facility] 26.30 mg/L [facility] Specimen Anatomical Collection Method Collection Time Receive d Time (Source) Location / / Volume Laterality Blood 08/09/2022 9:08 AM 3 CDT 12:36 PM CDT Fouzia Das APRN LAB BLOOD ORDERABLES Performing Organization Address [facility] CANCER Unless otherwise noted, [place] [id number] [place] all lab tests performed by: Division of Pathology and Laboratory Medicine [address] [place] (ABNORMAL) Free [place]utter Light Chain (08/09/2022 9:08 AM CDT)Only the most recent of2 resultswithin the time period is included. athologist Signature Free Wamsutter 33.57 (H) 3.30 - [facility] 19.40 mg/L [facility] Specimen Anatomical Collection Method Collection Time Receive d Time (Source) Location / / Volume Laterality Blood 08/09/2022 9:08 AM 3 CDT 12:36 PM CDT Fouzia Das APRN LAB BLOOD ORDERABLES Performing Organization Address [facility] e Number [facility] Unless otherwise noted, [place] [phone] [place] all lab tests performed by: Division of Pathology and Laboratory Medicine [address] [place] (ABNORMAL) Differential (08/09/2022 9:08 AM CDT)Only the most recent of2 results within the time period is included. athologist Signature Neutrophil % 62.8 42.0 - [facility] 66.0 % [facility] Lymphocyte % 25.8 24.0 - [facility] 44.0 % [facility] Monocyte % 10.3 (H) 2.0 - 7.0 [facility] % [facility] Eosinophil % 0.6 (L) 1.0 - 4.0 [facility] % [facility] Basophil % 0.4 0.0 - 1.0 [facility] % [facility] IGRE % 0.1 0.0 - 0.4 [facility] % [facility] Comment: IGRE % count includes Metamyelo cytes, Myelocytes, and Promyelocytes. Neutrophil Abs 4.53 1.70 - 7.30 K/uL [facility] Lymphocyte Abs 1.86 1.00 - 4.80 K/uL [facility] [place] Monocyte Abs 0.74 (H) 0.08 - 0.70 K/uL [facility] Eosinophil Abs 0.04 0.04 - 0.40 K/uL [facility] [place] Basophil Abs 0.03 0.00 - 0.10 K/uL [place] [facility] IG Abs 0.01 0.00 - 0.04 K/uL [place] [facility] Specimen Anatomical Collection Method Collection Time Receive d Time (Source) Location / / Volume Laterality Blood 08/09/2022 9:08 AM 3 9:17 CDT AM CDT Fouzia Das APRN LAB BLOOD ORDERABLES Performing Organization Address City/State/ZIP Code Phon e Number [facility] Unless otherwise noted, [place], [place] [address] [place] all lab tests performed by: Division of Pathology and Laboratory Medicine [address] [place] [address] EDMAR (08/09/2022 9:08 AM CDT)Only the most recent of2 resultswithin the time period is included. P athologist Signature EDMAR See Comment [facility] [place] Specimen Anatomical Collection Method Collection Time Receive d Time (Source) Location / / Volume Laterality Blood 08/09/2022 9:08 AM 3 CDT 10:41 AM CDT Fouzia Das APRN LAB BLOOD ORDERABLES Performing Organization Address City/State/ZIP Code Phon e Number [facility] Unless otherwise noted, [place] [address] CENTER all lab tests performed by: Division of Pathology and Laboratory Medicine [address] [place] [address] Uric Acid (08/09/2022 9:08 AM CDT)Only the most recent of2 resultswithin the time period is included. athologist Signature Uric Acid 4.1 2.4 - 5.7 [facility] mg/dL [facility] Specimen Anatomical Collection Method Collection Time Receive d Time (Source) Location / / Volume Laterality Blood 08/09/2022 9:08 AM 3 9:29 CDT AM CDT Fouzia L Das BISQUE FINISHER LAB BLOOD ORDERABLES Performing Organization Address City/[facility]/ZIP [facility] Phon e Number [facility] Unless otherwise noted, [address] all lab tests performed by: Division of Pathology and Laboratory Medicine [address] [place] [address] (ABNORMAL) BUN (08/09/2022 9:08 AM CDT)Only the most recent of2 resultswithin the time period is included. athologist Signature BUN 24 (H) 6 - 23 [facility] mg/dL [facility] Specimen Anatomical Collection Method Collection Time Receive d Time (Source) Location / / Volume Laterality Blood 08/09/2022 9:08 AM 3 9:29 CDT AM CDT Fouzia L Das BISQUE FINISHER LAB BLOOD ORDERABLES Performing Organization Address City/[facility] Phon e Number [facility] Unless otherwise noted, [address] all lab tests performed by: Division of Pathology and Laboratory Medicine [address] [place] [address] ALT (08/09/2022 9:08 AM CDT)Only the most recent of2 resultswithin the time period is included. athologist Signature ALT 13 <=33 U/L [facility] [place] Specimen Anatomical Collection Method Collection Time Receive d Time (Source) Location / / Volume Laterality Blood 08/09/2022 9:08 AM 3 9:29 CDT AM CDT Fouzia L Das BISQUE FINISHER LAB BLOOD ORDERABLES Performing Organization Address City/[facility]/ZIP Code Phon e Number [facility] Unless otherwise noted, [address] all lab tests performed by: Division of Pathology and Laboratory Medicine [address] [place] [address] Aspartate Aminotransferase (08/09/2022 9:08 AM CDT)Only the most recent of2 resultswithin the time period is included. [facility] AST 15 <=32 U/L [facility] Specimen Anatomical Collection Method Collection Time Receive d Time (Source) Location / / Volume Laterality Blood 08/09/2022 9:08 AM 3 9:29 CDT AM CDT Fouzia Das APRN LAB BLOOD ORDERABLES Performing Organization Address City/State/ZIP [facility] Phon e Number [facility] Unless otherwise noted, [place] [address] [place] all lab tests performed by: Division of Pathology and Laboratory Medicine [address] [place] [address] Serum Protein Electrophoresis (08/09/2022 9:08 AM CDT)Only the most recent of2 resultswithin the time period is included. [facility] TOT PROTEIN 7.1 6.4 - 8.3 [facility] gm/dL [facility] Albumin 4.0 3.6 - 5.4 [facility] gm/dL [facility] Alpha 1 0.3 0.2 - 0.4 [facility] Globulin gm/dL [facility] Alpha 2 1.0 0.5 - 1.0 [facility] Globulin gm/dL [facility] Beta Globulin 0.7 0.5 - 1.1 [facility]/dL [facility] Gamma Globulin 1.1 0.7 - 1.6 [facility]/ [facility] Specimen Anatomical Collection Method Collection Time Receive d Time (Source) Location / / Volume Laterality Blood 08/09/2022 9:08 AM 3 CDT 10:41 AM CDT Fouzia Das APRN LAB BLOOD ORDERABLES Performing Organization Address City/[facility]/ZIP Code Phon e Number [facility] Unless otherwise noted, [place] [address] [place] all lab tests performed by: Division of Pathology and Laboratory Medicine [address] [place] [address] Total Protein (08/09/2022 9:08 AM CDT)Only the most recent of2 resultswithin the time period is included. [facility] Total Protein 7.1 6.4 - 8.3 [facility] g/dL [facility] Specimen Anatomical Collection Method Collection Time Receive d Time (Source) Location / / Volume Laterality Blood 08/09/2022 9:08 AM 3 9:29 CDT AM CDT Fouzia Das BISQUE FINISHER LAB BLOOD ORDERABLES Performing Organization Address City/[facility]/ZIP Code Phon e Number [facility] Unless otherwise noted, [address] all lab tests performed by: Division of Pathology and Laboratory Medicine [address] [place] Phosphorus Level (08/09/2022 9:08 AM CDT)Only the most recent of2 resultswithin the time period is included. athologist Signature Phosphorus 2.8 2.5 - 4.5 [facility] mg/dL [facility] Specimen Anatomical Collection Method Collection Time Receive d Time (Source) Location / / Volume Laterality Blood 08/09/2022 9:08 AM 3 9:29 CDT AM CDT Fouzia L Das BISQUE FINISHER LAB BLOOD ORDERABLES Performing Organization Address [facility] Phon e Number [facility] Unless otherwise noted, [address] all lab tests performed by: Division of Pathology and Laboratory Medicine [address] Alkaline Phosphatase (08/09/2022 9:08 AM CDT)Only the most recent of2 results within the time period is included. athologist Signature Alk Phos 92 35 - 104 [facility] U/L [facility] Specimen Anatomical Collection Method Collection Time Receive d Time (Source) Location / / Volume Laterality Blood 08/09/2022 9:08 AM 3 9:29 CDT AM CDT Fouzia L Das BISQUE FINISHER LAB BLOOD ORDERABLES Performing Organization Address [facility] Phon e Number [facility] Unless otherwise noted, [place] [address] [place] all lab tests performed by: Division of Pathology and Laboratory Medicine [address] Magnesium Level (08/09/2022 9:08 AM CDT)Only the most recent of2 resultswithin the time period is included. athologist Signature Magnesium 2.0 1.6 - 2.6 [facility] mg/dL [facility] Specimen Anatomical Collection Method Collection Time Receive d Time (Source) Location / / Volume Laterality Blood 08/09/2022 9:08 AM 3 9:29 CDT AM CDT Fouzia Reynolds Pippa ADAM LAB BLOOD ORDERABLES Performing Organization Address City/[facility] Phon e Number [facility] Unless otherwise noted, [address] all lab tests performed by: Division of Pathology and Laboratory Medicine [address] (ABNORMAL) LDH (08/09/2022 9:08 AM CDT)Only the most recent of2 resultswithin the time period is included. athologist [facility] LDH 117 (L) 135 - 214 [facility] U/L [facility] Comment: Results greater than 1651 U/L m ay not be reliable due to matrix effect with extended dilution as it exceeds the manu facturer's recommended limit. Caution should be exercised when interpreting such valu es and done in conjunction with clinical context. Specimen Anatomical Collection Method Collection Time Receive d Time (Source) Location / / Volume Laterality Blood 08/09/2022 9:08 AM 3 9:32 CDT AM CDT Fouzia Reynolds Pippa ADAM LAB BLOOD ORDERABLES Performing Organization Address City/[facility] Phon e Number [facility] Unless otherwise noted, [address] all lab tests performed by: Division of Pathology and Laboratory Medicine [address] Glucose Level (08/09/2022 9:08 AM CDT)Only the most recent of2 resultswithin the time period is included. athologist [facility] Glucose Level 97 70 - 99 [facility] mg/dL [facility] Comment: Effective 11/04/15, the glucose reference intervals have been updated based on [place] [employer] guidelines (Standards of Medical Care [...] (Source) Location / / Volume Laterality Blood 08/09/2022 9:08 AM 3 9:29 CDT AM CDT Fouzia Das APRN LAB BLOOD ORDERABLES Performing Organization Address City/[facility]/ZIP Code Phon e Number [facility] Unless otherwise noted, [place] [address] [place] all lab tests performed by: Division of Pathology and Laboratory Medicine [facility] IgA (08/09/2022 9:08 AM CDT)Only the most recent of2 resultswithin the time period is included. athologist Signature IgA 108 85 - 499 [facility] mg/dL [facility] Specimen Anatomical Collection Method Collection Time Receive d Time (Source) Location / / Volume Laterality Blood 08/09/2022 9:08 AM 3 CDT 12:36 PM CDT Fouzia Das APRN LAB BLOOD ORDERABLES Performing Organization Address City/[facility] Phon e Number [facility] Unless otherwise noted, [place] [address] [place] all lab tests performed by: Division of Pathology and Laboratory Medicine [facility] (ABNORMAL) IgM (08/09/2022 9:08 AM CDT)Only the most recent of2 resultswithin the time period is included. athologist Signature IgM 16 (L) 35 - 242 [facility] mg/dL [facility] Specimen Anatomical Collection Method Collection Time Receive d Time (Source) Location / / Volume Laterality Blood 08/09/2022 9:08 AM 3 CDT 12:36 PM CDT Fouzia Das BISQUE FINISHER LAB BLOOD ORDERABLES Performing Organization Address City/[facility]/ZIP Code Phon e Number [facility] Unless otherwise noted, [place] [phone] [place] all lab tests performed by: Division of Pathology and Laboratory Medicine [address] IgG (08/09/2022 9:08 AM CDT)Only the most recent of2 resultswithin the time period is included. athologist [facility] IgG 1,161 610 - 1,616 [facility] mg/dL [facility] Specimen Anatomical Collection Method Collection Time Receive d Time (Source) Location / / Volume Laterality Blood 08/09/2022 9:08 AM 3 CDT 12:36 PM CDT Fouzia Sollar BISQUE FINISHER LAB BLOOD ORDERABLES Performing Organization Address City/[facility]/ZIP Code Phon e Number [facility] Unless otherwise noted, [place] [address] [place] all lab tests performed by: Division of Pathology and Laboratory Medicine [address] Calcium Level (08/09/2022 9:08 AM CDT)Only the most recent of2 resultswithin the time period is included. [facility] Calcium Lvl 9.6 8.4 - 10.2 [facility] mg/dL [facility] Specimen Anatomical Collection Method Collection Time Receive d Time (Source) Location / / Volume Laterality Blood 08/09/2022 9:08 AM 3 9:29 CDT AM CDT Fouzia Rodolfo Das BISQUE FINISHER LAB BLOOD ORDERABLES Performing Organization Address City/[facility]/ZIP Code Phon e Number [facility] Unless otherwise noted, [place] [address] [place] all lab tests performed by: Division of Pathology and Laboratory Medicine [address] (ABNORMAL) Beta 2 Microglobulin (08/09/2022 9:08 AM CDT)Only the most recent of2 resultswithin the time period is included. athologist [facility] Beta2 3.2 (H) 0.8 - 2.3 [facility] Microglob mg/L [facility] Comment: This test is measured by turbid imetric methodology on the [facility] Optilite analyzer. Results obtained from different methods are not interchangeable. Specimen Anatomical Collection Method Collection Time Receive d Time (Source) Location / / Volume Laterality Blood 08/09/2022 9:08 AM 3 CDT 12:36 PM CDT Fouzia L Das BISQUE FINISHER LAB BLOOD ORDERABLES Performing Organization Address City/[facility]/ZIP Code Phon e Number [facility] Unless otherwise noted, [place] [address] [place] all lab tests performed by: Division of Pathology and Laboratory Medicine [address] [place], [place] [address] Albumin Level (08/09/2022 9:08 AM CDT)Only the most recent of2 resultswithin the time period is included. athologist Signature Albumin Lvl 4.3 3.5 - 5.2 [facility] gm/dL [facility] Specimen Anatomical Collection Method Collection Time Receive d Time (Source) Location / / Volume Laterality Blood 08/09/2022 9:08 AM 9:29 CDT AM CDT Fouzia Das APRN LAB BLOOD ORDERABLES Performing Organization Address City/[facility]/ZIP Code Phon e Number [facility] Unless otherwise noted, [place] [address] [place] all lab tests performed by: Division of Pathology and Laboratory Medicine [address] [place] [address] (ABNORMAL) Electrolyte Panel (08/09/2022 9:08 AM CDT)Only the most recent of2 resultswithin the time period is included. athologist Signature Sodium Lvl 133 (L) 136 - 145 [facility] mEq/L [facility] Potassium Lvl 4.1 3.5 - 5.1 [facility] mEq/L [facility] Chloride 96 (L) 98 - 107 [facility] mEq/L [facility] CO2 28 22 - 29 [facility] mEq/L [facility] Anion Gap 9 4 - 14 [facility] mEq/L [facility] Specimen Anatomical Collection Method Collection Time Receive d Time (Source) Location / / Volume Laterality Blood 08/09/2022 9:08 AM 9:29 CDT AM CDT Fouzia Das APRN LAB BLOOD ORDERABLES Performing Organization Address City/[facility] Code Phon e Number [facility] Unless otherwise noted, [place] [address] [place] all lab tests performed by: Division of Pathology and Laboratory Medicine [address] [place] [address] Urine EDMAR Path Review (08/09/2022 5:00 AM CDT)Only the most recent of2 results within the time period is included. Component Value Ref Test Analysis Performed At [facility] g[facility] Range Method Time Signature UIFE Path Int The follow-up urine protein immunofixation electrophoretic patterns obtained with the use of antisera against IgG, IgA, IgM, bound kappa and bound lambda light chains, free kappa and free lambda light chains do not show definitive evidence of a [place] Bence-Liang proteinuria. [facility] Comment: MD Gary LINCOLN Dictated by: MD Gary LINCOLN Dictated Date/Time: 08.18.2022 12:09 PM CDT Transcribed Date/Time: 08.18.2022 12:09 PM CDT Electronically Signed By: MD Gary LINCOLN on 08.18.2022 12:09 PM Specimen Anatomical Collection Method Collection Time Receive d Time (Source) Location / / Volume Laterality Urine 24 Hr 08/09/2022 5:00 AM CDT 12:37 PM CDT Fouzia Das APRN URINE ORDERABLES Performing Organization Address City/State/ZIP Code Phon e Number [place] MD [facility] Unless otherwise noted, [place] [address] [place] all lab tests performed by: Division of Pathology and Laboratory Medicine [address] [place] [address] Urine Prot Electrophoresis Path Review (08/09/2022 5:00 AM CDT)Only the most recent of2 resultswithin the time period is included. Component Value Ref Test Analysis Performed At [facility] gist Range Method Time Signature U ProE Path The follow-up [place] Int urine protein INGA electrophoretic CANCER pattern does not CENTER show definitive evidence of a Bence-Liang protein peak. Comment: MD Gary LINCOLN [id number] Dictated by: MD Gary LINCOLN Dictated Date/Time: 08.18.2022 12:09 PM CDT Transcribed Date/Time: 08.18.2022 12:09 PM CDT Electronically Signed By: MD Gary LINCOLN on 08.18.2022 12:09 PM Specimen Anatomical Collection Method Collection Time Receive d Time (Source) Location / / Volume Laterality Urine 24 Hr 08/09/2022 5:00 AM 3 CDT 12:37 PM CDT Fouzia Das APRN URINE ORDERABLES Performing Organization Address City/[facility]/ZIP Code Phon e Number [facility] Unless otherwise noted, [address] all lab tests performed by: Division of Pathology and Laboratory Medicine [address] (ABNORMAL) Total Volume (08/09/2022 5:00 AM CDT)Only the most recent of2 results within the time period is included. Analysis Performed At Patho logist Time Signature Total Volume 3,000 (H) 1,200 - [facility] 1,500 DODGE mL/24 h [facility] Hrs Collected 24 [facility] Start Date 08/08/2022 [facility] End Date 08/09/2022 [facility] U24 Comment [id number] Specimen Anatomical Collection Method Collection Time Receive d Time (Source) Location / / Volume Laterality Urine 24 Hr 08/09/2022 5:00 AM 3 9:53 CDT AM CDT Fouzia Reynolds Pippa BISQUE FINISHER URINE ORDERABLES Performing Organization Address City/[facility] Phon e Number [facility] Unless otherwise noted, [address] all lab tests performed by: Division of Pathology and Laboratory Medicine [address] 24hr Urine Total Protein (08/09/2022 5:00 AM CDT)Only the most recent of2 resultswithin the time period is included. P athologist Signature UTP <4 mg/dL [facility] Comment: Caution is advised when interpreting nicole ues greater than 555 mg/dL. Results requiring extended dilution beyo nd the open hearth furnace operator helper's recommended limit may not dilute linearly due to pot ential matrix effect. Correlation with clinical context is rec ommended. UTP 24 <120 <=149 mg/24hr [facility] Specimen Anatomical Collection Method Collection Time Receive d Time (Source) Location / / Volume Laterality Urine 24 Hr 08/09/2022 5:00 AM 3 CDT 10:55 AM CDT Fouziaamy Sollar BISQUE FINISHER URINE ORDERABLES Performing Organization Address City/[facility]/ZIP Code Phon e Number [facility] Unless otherwise noted, [address] all lab tests performed by: Division of Pathology and Laboratory Medicine [address] Protein Electrophoresis Urine (08/09/2022 5:00 AM CDT)Only the most recent of2 resultswithin the time period is included. athologist [facility] U Albumin % 47.7 % [facility] U Globulin% 52.3 % [facility] Specimen Anatomical Collection Method Collection Time Receive d Time (Source) Location / / Volume Laterality Urine 24 Hr 08/09/2022 5:00 AM 3 CDT 11:12 AM CDT Fouzia Reynolds Das BISQUE FINISHER URINE ORDERABLES Performing Organization Address City/[facility]/ZIP [facility] Phon e Number [facility] Unless otherwise noted, [address] all lab tests performed by: Division of Pathology and Laboratory Medicine [address] EDMAR Urine (08/09/2022 5:00 AM CDT)Only the most recent of2 resultswithin the time period is included. [facility] UIFE No BJP Seen [facility] Specimen Anatomical Collection Method Collection Time Receive d Time (Source) Location / / Volume Laterality Urine 24 Hr 08/09/2022 5:00 AM 3 CDT 11:12 AM CDT Fouzia Reynolds Das BISQUE FINISHER URINE ORDERABLES Performing Organization Address City/[facility]/ZIP [facility] Phon e Number [facility] Unless otherwise noted, [address] all lab tests performed by: Division of Pathology and Laboratory Medicine [address] Protein Electrophoresis Path Review (01/26/2022 9:30 AM CDT) Component Value Ref Test Analysis Performed At [facility] Range Method Time [facility] SPE Path The follow-up [facility] protein INGA electrophoretic CANCER pattern does not CENTER show definitive evidence of an M-protein peak. Comment: MD Gary LINCOLN Dictated by: MD Gary LINCOLN Dictated Date/Time: 02.04.2022 11:47 AM CDT Transcribed Date/Time: 02.04.2022 11:47 AM CDT Electronically Signed By: MD Gary LINCOLN on 02.04.2022 11:47 AM Specimen Anatomical Collection Method Collection Time Receive d Time (Source) Location / / Volume Laterality Blood 01/26/2022 9:30 AM 1:41 CDT PM CDT Fouzia Das APRN LAB BLOOD ORDERABLES Performing Organization Address City/State/ZIP Code Phon e Number [place] IN[place] CANCER Unless otherwise noted, [address] all lab tests performed by: Division of Pathology and Laboratory Medicine [facility] EDMAR Path Review (01/26/2022 9:30 AM CDT) Component Value Ref Test Analysis Performed At [facility] gist Range Method Time Signature EDMAR Path Int The follow-up serum protein immunofixation electrophoretic patterns obtained with the use of antisera against IgG, IgA, IgM, bound kappa and bound lambda light chains are suggestive of an oligoclonal ga [place] mmopathy. Follow-up serum protein electrophoretic INGA studies and correlation with the clinical findings, navneet r, are suggested. [facility]ENTER Comment: MD Gary LINCOLN Dictated by: MD Gary LINCOLN Dictated Date/Time: 02.04.2022 11:47 AM CDT Transcribed Date/Time: 02.04.2022 11:47 AM CDT Electronically Signed By: MD Gary LINCOLN on 02.04.2022 11:47 AM Specimen Anatomical Collection Method Collection Time Receive d Time (Source) Location / / Volume Laterality Blood 01/26/2022 9:30 AM 2 1:41 CDT PM CDT Fouzia L Pippa ADAM LAB BLOOD ORDERABLES Performing Organization Address City/State/ZIP Code Phon e Number [facility] INGA CANCER Unless otherwise noted, [place], [place] [id number] [place] [address] all lab tests performed by: Division of Pathology and Laboratory Medicine [address] [place] [address] after 09/10/2021 Insurance Payer Benefit Plan / Subscriber ID Effective Phone Address T ype Group Dates [facility] [id number] 2018-[employer] [address] 72 Medicare MEDICARE MEDICARE nt [place] ADVANTAGE ADVANTAGE [id number] Advance Directives Type Date Recorded 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 Advance Directives: 10/04/2017 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 Code Status Date Activated Date Inactivated Comments Full Code 02/20/2018 5:30 PM 03/17/2018 1:49 PM Care Teams Ultrasound Coordinator Relationship Specialty Start Date End Date Davide Agudelo PCP - External Referring Internal Medicine 10/03/17 MD Vaishnavi [address] [place] [address] Con Kwan MD PCP - General Lymphoma and Myeloma 10/03/[address] [place] [address] Daily Kingsley PCP - External Follow Up Hematology and 10/03/[address] [place] [address] [place] [address] Mitchell Ramírez PCP - External Primary Internal Medicine 8 MD Marty Care Provider [address] [place] [address] Wayne Ugalde, Consulting Physician Dental Oncology 02/09/[address] [place] [address] Florencia Betancourt DDS Consulting Physician Dental Oncology 10/17/[address] [place] [id number] [id number]
--- OUTSIDE RECORDS SUMMARY | 2022-09-10 12:17 | XMS REPORT | Continuity of Care Document ---
:1950 Author Organization [facility] [place] [facility] t Address [address] [place] [address] [address] [place] [address] Care Team Providers Name Role Phone MYRIAM COLLAZO Primary Care Physician Unavailable SYSTEM, PROVIDER NOT IN Attending Clinician Unavailable SARAVANAN MONTES Attending Clinician Unavailable RADIOLOGY Attending Clinician Unavailable Fouzia Das APRN Attending Clinician [phone] Vanessa Singh MD Attending Clinician Doctor Unassigned, Onyx Attending Clinician Unavailable Saravanan Montes MD Attending Clinician VANESSA SINGH Attending Clinician Unavailable CHANTAL CONN Attending Clinician Unavailable MD CHANTAL CONN Attending Clinician Unavail able CARL RANGEL Attending Clinician Unavailable Jakub-Candiayo_A_AH Attending Clinician Unavailable CHANTAL CONN Admitting Clinician Unavailable MD CHANTAL CONN Admitting Clinician Unavail able Jakub-Mbayo_A_AH Admitting Clinician Unavailable Payers Payer Name Policy Type Policy Number Effective Date Expiration Date [id number] 2020 CLASSIC NO PREMIUM 00:00:00 [facility] WELLC[facility] [id number] 2020 00:00:00 [place] - [id number] 2019 [place] 00:00:00 (MEDICARE REPLACEMENT/ADVANT AGE - HMO) Problems Condition Condition Condition Status Onset Resolution Last Treating Co mments Source Name Details Category Date Date Treatment Clinician Date Primary Primary Disease Active Univers hypertensi hypertensi 4-06 it y of on on 00:00: [place] 00 Medical Branch Hyperlipid Hyperlipid Disease Active U nivers emia, emia, 4-06 ity of unspecifie [place] hyperlipid hyperlipid Br anch emia type emia type Carotid Carotid Disease Active Methodi stenosis, stenosis, -20 st right right 00:00: [facility]osp[facility] 00 l [...] stem 2- ity of cell cell 00:00: [place] transplant transplant 00 [facility] Small Small Disease Active 2017-04 Univers bowel bowel 2- [place] obstruct[place] [facility] Diarrhea Diarrhea Disease Active 2017-04 Unive rs 1-27 ity of 00:00: [place] 00 MD [facility] Mucositis Mucositis Disease Active 2017-04 Uni vers 1-27 ity of 00:00: [place] 00 MD [facility] 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 NO KNOWN Allergy Active [facility] Family History Family Member Diagnosis Comments Start Date Stop Date Source Natural father -Gastrointestinal [facility] [place] (Esophagus, Liver, MD [facility] Bile Duct, Stomach, Cente r Pancreas, Colon, Rectum, Anus Natural mother Coronary heart Univer [facility] [place] disease (CHD) [facility] Natural mother Diabetes [facility] Natural mother Hypertension Universi ty [facility] Natural mother Stroke [facility] Social History Social Habit Start Date Stop Date Quantity Comments Source History SDOH [facility] Alcohol Std Drinks [facility]ica l Center History SDOH [facility] Alcohol Binge Medical [facility] Gender identity [facility] orientation [facility] History of tobacco Cigarette Smoker [facility] History SDOH [facility] Alcohol Comment Medical C enter Exposure to 2022-08-02 2022-08-12 Not sure University SARS-CoV-2 (event) 00:00:00 08:59:00 [facility] Alcohol intake 2022-08-12 2022-08-12 Current University of 00:00:00 00:00:00 non-drinker of Dat iqbal alcohol [facility] (finding) History of Social 2022-06-14 2022-06-[address] function 00:00:00 00:00:00 Hospital History SDOH 2020-03-25 2020-03-[address] [facility] Alcohol Frequency 00:00:00 00:00:00 [facility] Cigarettes smoked 2017-10-03 2017-10-03 Univers ity of current (pack per 00:00:00 00:00:00 Dat [place] ) - Reported Cancer Ce nter Cigarette 2017-10-03 2017-10-03 University of pack-years 00:00:00 00:00:00 [place] MD Pelayo [facility] Tobacco use and 2017-10-03 2017-10-03 Smokeless Universit y of exposure 00:00:00 00:00:00 tobacco non-user [facility] Sex [birth year] Universit y of 00:00:00 00:00:00 [place] MD Pelayo [facility] Smoking Status Start Date Stop Date Source Ex-smoker 2017-10-03 00:00:00 2017-10-03 00:00:00 [facility] [place] Medications Ordered Filled Start Stop Current Ordering Indication Dosage Frequency Signature Comments Components Source Medication Medication Date Date Medication? Clinician (SIG) Name Name valACYclovi Yes Multiple TAKE 1 Univers r (VALTREX) 5-11 myeloma TABLET BY ity of 500 mg 00:00: MOUTH [place] tablet 00 EVERY DAY MD Franck lizama [facility] valACYclovi Yes Multiple TAKE 1 Univers r (VALTREX) 5-11 myeloma TABLET BY ity of 500 mg 00:00: MOUTH [place] tablet 00 EVERY DAY MD Franck lizama [facility] lenalidomid 2022- No multiple 10mg Take 10 mg Univers e 5-05 05-05 myeloma by mouth. ity of (REVLIMID) 11:15: 00[place]00 [place] capsule 10 02 :00 days then MD mg 7 days off [facility] lenalidomid 2022- No multiple 10mg Take 10 mg Univers e 5-05 05-05 myeloma by mouth. ity of (REVLIMID) 11:15: 00:00 [place] capsule 10 02 :00 days then MD mg 7 days off [facility] bimatoprost Yes 1[drp] Administer Univers (LUMIGAN) 5-05 1 drop to ity o f 0.01% 09:17: both eyes [place] ophthalmic 58 at MD drops bedtime. [facility] cholecalcif Yes 400U Take 1 Univ ers imer, 5-05 tablet ity of vitamin D3, 09:17: (400 [place] 400 units 58 Units) by tablet mouth Anderso twice n daily. Cancer Center calcium Yes 1{tbl} Take 1 Univer s carbonate-v 5-05 tablet by ity of itamin D3 09:17: mouth [place] 500 mg-10 58 twice MD mcg (400 daily. Anderso unit) tab n [facility] atorvastati Yes 80mg Take 1 Univ ers n (LIPITOR) 5-05 tablet (80 it y of 80 mg 09:17: mg) by [place] tablet 58 [facility] losartan 50 Yes 1{tbl} Take 1 Un heriberto mg tab 100 5-05 tablet by ity of mg, 09:17: mouth [place] hydroCHLORO 58 daily. thiazide 25 Anderso mg tab 25 n mg Cancer Center aspirin 81 Yes 81mg Take 1 Unive rs mg EC 5-05 tablet (81 ity of tablet 09:17: mg) by [place] 58 mouth MD daily. [facility] omeprazole Yes 40mg Take 1 Unive rs (PriLOSEC) 5-05 capsule ity of 40 MG 09:17: (40 mg) by [place] capsule 58 mouth MD every Anderso morning n before Cancer breakfast. Center calcium Yes 1{tbl} Take 1 Univer s carbonate-v 5-05 tablet by ity of itamin D3 09:17: mouth 2 [place] ([id number] 58 (two) MD 0+D) 1,500 times a [place] o mg - 400 day with n units (600 meals. Cancer mg Center elemental calcium per tablet) per tablet denosumab Yes 1{syrin Inject 1 U nivers (PROLIA 5-05 ge} Syringe ity of SUBCUTANEOU 09:17: [place]) 58 skin every MD 6 (six) Anderso months. n Cancer Center bimatoprost Yes 1[drp] Administer Univers (LUMIGAN) 5-05 1 drop to ity o f 0.01% 09:17: both eyes [place] ophthalmic 58 at MD [facility]. [facility] cholecalcif Yes 400U Take 1 Univ ers imre, 5-05 tablet ity of vitamin D3, 09:17: (400 [place] 400 units 58 Units) by MD tablet mouth Anderskeith twice n daily. Cancer Center calcium Yes 1{tbl} Take 1 Univer s carbonate-v 5-05 tablet by ity of itamin D3 09:17: mouth [place] 500 mg-10 58 twice MD mcg (400 daily. Anderso unit) tab n Cancer Center atorvastati Yes 80mg Take 1 Univ ers n (LIPITOR) 5-05 tablet (80 it y of 80 mg 09:17: mg) by [place] tablet 58 mouth MD daily. [facility] losartan 50 Yes 1{tbl} Take 1 Un heriberto mg tab 100 5-05 tablet by ity of mg, 09:17: mouth [place] hydroCHLORO 58 daily. thiazide 25 Anderso mg tab 25 n mg Cancer Center aspirin 81 Yes 81mg Take 1 Unive rs mg EC 5-05 tablet (81 ity of tablet 09:17: mg) by [place] 58 mouth MD daily. [facility] omeprazole Yes 40mg Take 1 Unive rs (PriLOSEC) 5-05 capsule ity of 40 MG 09:17: (40 mg) by [place] capsule 58 mouth MD every Anderso morning n before Cancer breakfast. Center calcium Yes 1{tbl} Take 1 Univer s carbonate-v 5-05 tablet by ity of itamin D3 09:17: mouth 2 [place] ([id number] 58 (two) MD 0+D) 1,500 times a [place] o mg - 400 day with n units (600 meals. Cancer mg Center elemental calcium per tablet) per tablet denosumab Yes 1{syrin Inject 1 U nivers (PROLIA 5-05 ge} Syringe ity of SUBCUTANEOU 09:17: under [place]) 58 skin every MD 6 (six) Anderso months. [facility] bimatoprost Yes [facility] Uni vers (LUMIGAN) 4-06 0.01 % eye ity of 0.01 % 14:13: drops 1 [place] ophthalmic 26 drop to Medica l drops both eyes Branch at night cholecalcif Yes 1000U Take 1 Uni vers imer, 4-06 tablet by ity of vitamin D3, 14:13: mouth [place] 25 mcg 26 every Medical (1,000 morning. Branch unit) tablet aspirin 81 Yes 81mg Take 1 Unive rs mg EC 4-06 tablet by ity of tablet 14:13: mouth. [place] 26 Medical Branch bimatoprost Yes [facility] Uni vers (LUMIGAN) 4-06 0.01 % eye ity of 0.01 % 14:13: drops 1 ophthalmic 26 drop to Medica l drops both eyes Branch at night cholecalcif 2022-0 Yes 1000U Take 1 Uni vers imer, 4-06 tablet by ity of vitamin D3, 14:13: mouth [place] 25 mcg 26 every Medical (1,000 morning. Branch unit) tablet aspirin 81 2022-0 Yes 81mg Take 1 Unive rs mg EC 4-06 tablet by ity of tablet 14:13: mouth. [address] Branch bimatoprost 2022-0 Yes [facility] Uni vers (LUMIGAN) 4-06 0.01 % eye ity of 0.01 % 14:13: drops 1 [place] ophthalmic 26 drop to Medica l drops both eyes Branch at night cholecalcif 2022-0 Yes 1000U Take 1 Uni vers imer, 4-06 tablet by ity of vitamin D3, 14:13: mouth [place] 25 mcg 26 every Medical (,000 morning. Branch unit) tablet aspirin 81 2022-0 Yes 81mg Take 1 Unive rs mg EC 4-06 tablet by ity of tablet 14:13: mouth. [address] Branch bimatoprost 0 Yes [facility] Uni vers (LUMIGAN) 4-06 0.01 % eye ity of 0.01 % 14:13: drops 1 [place] ophthalmic 26 drop to Medica l drops both eyes Branch at night cholecalcif 2022-0 Yes 1000U Take 1 Uni vers imer, 4-06 tablet by ity of vitamin D3, 14:13: mouth [place] 25 mcg 26 every Medical (,000 morning. Branch unit) tablet aspirin 81 2022-0 Yes 81mg Take 1 Unive rs mg EC 4-06 tablet by ity of tablet 14:13: mouth. [address] Branch atorvastati 2022-0 Yes 80mg Take 1 Univ ers n 80 mg 3-28 tablet by ity of tablet 00:00: mouth in [place] the Medical morning. Branch atorvastati 2022-0 Yes 80mg Take 1 Univ ers n 80 mg 3-28 tablet by ity of tablet 00:00: mouth in [place] the Medical morning. Branch atorvastati 2022-0 Yes 80mg Take 1 Univ ers n 80 mg 3-28 tablet by ity of tablet 00:00: mouth in [place] 00 the Medical morning. Branch atorvastati 2022-0 Yes 80mg Take 1 Univ ers n 80 mg 3-28 tablet by ity of tablet 00:00: mouth in [place] 00 the Medical morning. Branch losartan-hy 2022-0 Yes 1{tbl} Take 1 Un heriberto drochloroth 3-21 tablet by ity of iazide 00:00: mouth in [place] 100-25 mg 00 the Medical per tablet morning. [facility] losartan-hy 2022-0 Yes 1{tbl} Take 1 Un heriberto drochloroth 3-21 tablet by ity of iazide 00:00: mouth in [place] 100-25 mg 00 the Medical per tablet morning. [facility] losartan-hy 2022-0 Yes 1{tbl} Take 1 Un heriberto drochloroth 3-21 tablet by ity of iazide 00:00: mouth in [place] 100-25 mg 00 the Medical per tablet morning. [facility] losartan-hy 0 Yes 1{tbl} Take 1 Un heriberto drochloroth 3-21 tablet by ity of iazide 00:00: mouth in [place] 100-25 mg 00 the Medical per tablet morning. [facility] LORazepam 2021-04- No Multiple 1mg Take 1 U nivers (Ativan) 1 0-22 10-23 myeloma tablet (1 ity of mg tablet 00:00: 04:59 mg) by [place] 00 :00 mouth once MD for 1 Anderso dose. 15 n minutes Cancer prior to Center MRI LORazepam 2021-04- No Multiple 1mg Take 1 U nivers (Ativan) 1 0-22 10-23 myeloma tablet (1 ity of mg tablet 00:00: 04:59 mg) by [place] 00 :00 mouth once MD for 1 Anderso dose. 15 n minutes Cancer prior to Center MRI LORazepam 2021-04- No Multiple 1mg Take 1 U nivers (Ativan) 1 0-22 10-23 myeloma tablet (1 ity of mg tablet 00:00: 04:59 mg) by [place] 00 :00 mouth once MD for 1 Anderso dose. 15 n minutes Cancer prior to Center MRI LORazepam 2021-04- No Multiple 1mg Take 1 U nivers (Ativan) 1 0-22 10-23 myeloma tablet (1 ity of mg tablet 00:00: 04:59 mg) by [place] 00 :00 mouth once MD for 1 Anderso dose. 15 n minutes Cancer prior to Center MRI LORazepam 2021-04- No Multiple 1mg Take 1 U nivers (Ativan) 1 0-22 10-23 myeloma tablet (1 ity of mg tablet 00:00: 04:59 mg) by [place] 00 :00 mouth once MD for 1 Anderso dose. 15 n minutes Cancer prior to Center MRI LORazepam 2021-04- No Multiple 1mg Take 1 U nivers (Ativan) 1 0-22 10-23 myeloma tablet (1 ity of mg tablet 00:00: 04:59 mg) by [place] 00 :00 mouth once MD for 1 Anderso dose. 15 n minutes Cancer prior to Center MRI LORazepam 2021-04- No Multiple 1mg Take 1 U nivers (Ativan) 1 0-22 10-23 myeloma tablet (1 ity of mg tablet 00:00: 04:59 mg) by [place] 00 :00 mouth once MD for 1 Anderso dose. 15 n minutes Cancer prior to Center MRI LORazepam 2021-04- No Multiple 1mg Take 1 U nivers (Ativan) 1 0-22 10-23 myeloma tablet (1 ity of mg tablet 00:00: 04:59 mg) by [place] 00 :00 mouth once MD for 1 Anderso dose. 15 n minutes Cancer prior to Center MRI LORazepam 2021-04- No Multiple 1mg Take 1 U nivers (Ativan) 1 0-22 10-23 myeloma tablet (1 ity of mg tablet 00:00: 04:59 mg) by [place] 00 :00 mouth once MD for 1 Anderso dose. 15 n minutes Cancer prior to Center MRI LORazepam 2021-04- No Multiple 1mg Take 1 U nivers (Ativan) 1 0-22 10-23 myeloma tablet (1 ity of mg tablet 00:00: 04:59 mg) by [place] 00 :00 mouth once MD for 1 Anderso dose. 15 n minutes Cancer prior to Center MRI LORazepam 2021-04- No Multiple 1mg Take 1 U nivers (Ativan) 1 0-22 10-23 myeloma tablet (1 ity of mg tablet 00:00: 04:59 mg) by [place] 00 :00 mouth once MD for 1 Anderso dose. 15 n minutes Cancer prior to Center MRI lenalidomid 2021-04 Yes multiple 10mg Take 10 mg Univers e 0-21 myeloma by mouth. ity of (REVLIMID) 10:28: For 21 [place] capsule 10 08 days then MD mg 7 days off [facility] losartan 50 2021-04 Yes 1{tbl} Take 1 Un heriberto mg tab 100 0-21 tablet by ity of mg, 10:28: mouth [place] hydroCHLORO 08 daily. thiazide 25 Anderso mg tab 25 n mg [facility] omeprazole 2021-04 Yes 40mg Take 40 mg U nivers (PriLOSEC) 0-21 by mouth ity o f 40 MG 10:28: every [place] capsule 08 morning MD before Anderso breakfast. [facility] lenalidomid 2021-04 Yes multiple 10mg Take 10 mg Univers e 0-21 myeloma by mouth. ity of (REVLIMID) 10:28: For 21 [place] capsule 10 08 days then MD mg 7 days off [facility] losartan 50 2021-04 Yes 1{tbl} Take 1 Un heriberto mg tab 100 0-21 tablet by ity of mg, 10:28: mouth [place] hydroCHLORO 08 daily. thiazide 25 Anderso mg tab 25 n mg [facility] omeprazole 2021-04 Yes 40mg Take 40 mg U nivers (PriLOSEC) 0-21 by mouth ity o f 40 MG 10:28: every [place] capsule 08 morning MD before Anderso breakfast. [facility] lenalidomid 2021-04 Yes multiple 10mg Take 10 mg Univers e 0-21 myeloma by mouth. ity of (REVLIMID) 10:28: For 21 [place] capsule 10 08 days then MD mg 7 days off [facility] losartan 50 2021-04 Yes 1{tbl} Take 1 Un heriberto mg tab 100 0-21 tablet by ity of mg, 10:28: mouth [place] hydroCHLORO 08 daily. thiazide 25 Anderso mg tab 25 n mg [facility] omeprazole 2021-04 Yes 40mg Take 40 mg U nivers (PriLOSEC) 0-21 by mouth ity o f 40 MG 10:28: every [place] capsule 08 morning MD before Anderso breakfast. [facility] lenalidomid 2021-04 Yes multiple 10mg Take 10 mg Univers e 0-21 myeloma by mouth. ity of (REVLIMID) 10:28: For 21 [place] capsule 10 08 days then MD mg 7 days off Anderso [facility] losartan 50 2021-04 Yes 1{tbl} Take 1 Un heriberto mg tab 100 0-21 tablet by ity of mg, 10:28: mouth [place] hydroCHLORO 08 daily. thiazide 25 Anderso mg tab 25 n mg [facility] omeprazole 2021-04 Yes 40mg Take 40 mg U nivers (PriLOSEC) 0-21 by mouth ity o f 40 MG 10:28: every [place] capsule 08 morning MD before Anderso breakfast. [facility] lenalidomid 2021-04 Yes multiple 10mg Take 10 mg Univers e 0-21 myeloma by mouth. ity of (REVLIMID) 10:28: For 21 [place] capsule 10 08 days then MD mg 7 [facility] off [facility] los[facility] 2021-04 Yes 1{tbl} Take 1 Un heriberto mg tab 100 0-21 tablet by ity of mg, 10:28: mouth [place] hydroCHLORO 08 daily. thiazide 25 Anderso mg tab 25 n mg [facility] omeprazole 2021-04 Yes 40mg Take 40 mg U nivers (PriLOSEC) 0-21 by mouth ity o f 40 MG 10:28: every [place] capsule 08 morning MD before Anderso breakfast. [facility] lenalidomid 2021-04 Yes multiple 10mg Take 10 mg Univers e 0-21 myeloma by mouth. ity of (REVLIMID) 10:28: For 21 [place] capsule 10 08 days then MD mg 7 days off [facility] losartan 50 2021-04 Yes 1{tbl} Take 1 Un heriberto mg tab 100 0-21 tablet by ity of mg, 10:28: mouth [place] hydroCHLORO 08 daily. thiazide 25 Anderso mg tab 25 n mg [facility] omeprazole 2021-04 Yes 40mg Take 40 mg U nivers (PriLOSEC) 0-21 by mouth ity o f 40 MG 10:28: every [place] capsule 08 morning before Anderso breakfast. [facility] lenalidomid 2021-04 Yes multiple 10mg Take 10 mg Univers e 0-21 myeloma by mouth. ity of (REVLIMID) 10:28: For 21 [place] capsule 10 08 days then MD mg 7 days off [facility] losartan 50 2021-04 Yes 1{tbl} Take 1 Un heriberto mg tab 100 0-21 tablet by ity of mg, 10:28: mouth [place] hydroCHLORO 08 daily. thiazide 25 Anderso mg tab 25 n mg Cancer Center omeprazole 2021-04 Yes 40mg Take 40 mg U nivers (PriLOSEC) 0-21 by mouth ity o f 40 MG 10:28: every [place] capsule 08 morning MD before Anderso breakfast. [facility] lenalidomid 2021-04 Yes multiple 10mg Take 10 mg Univers e 0-21 myeloma by mouth. ity of (REVLIMID) 10:28: For 21 [place] capsule 10 08 days then MD mg 7 days off [facility] losartan 50 2021-04 Yes 1{tbl} Take 1 Un heriberto mg tab 100 0-21 tablet by ity of mg, 10:28: mouth [place] hydroCHLORO 08 daily. thiazide 25 Anderso mg tab 25 n mg [facility] omeprazole 2021-04 Yes 40mg Take 40 mg U nivers (PriLOSEC) 0-21 by mouth ity o f 40 MG 10:28: every [place] capsule 08 morning MD before Anderso breakfast. [facility] lenalidomid 2021-04 Yes multiple 10mg Take 10 mg Univers e 0-21 myeloma by mouth. ity of (REVLIMID) 10:28: For 21 [place] capsule 10 08 days then MD mg 7 days off [facility] losartan 50 2021-04 Yes 1{tbl} Take 1 Un heriberto mg tab 100 0-21 tablet by ity of mg, 10:28: mouth [place] hydroCHLORO 08 daily. thiazide 25 Anderso mg tab 25 n mg [facility] omeprazole 2021-04 Yes 40mg Take 40 mg U nivers (PriLOSEC) 0-21 by mouth ity o f 40 MG 10:28: every [place] capsule 08 morning MD before Anderso breakfast. [facility] bimatoprost 2021-04 Yes 1[drp] Administer Univers (LUMIGAN) 0-21 1 drop to ity o f 0.01% 10:26: both eyes [place] ophthalmic 16 at MD drops bedtime. [facility] cholecalcif 2021-04 Yes 400U Take 400 Un heriberto imer, 0-21 Units by ity of vitamin D3, 10:26: mouth [place] 400 units 16 twice MD tablet daily. [facility] calcium 2021-04 Yes 1{tbl} Take 1 Univer s carbonate-v 0-21 tablet by ity of itamin D3 10:26: mouth [place] 500 mg-10 16 twice MD mcg (400 daily. Anderso unit) [facility] n [facility] atorvastati 2021-04 Yes 80mg Take 80 mg Univers n (LIPITOR) 0-21 by mouth ity of 80 mg 10:26: daily. Dat tablet 16 [facility] aspirin 81 2021-04 Yes 81mg Take 81 mg U nivers mg EC 0-21 by mouth ity of tablet 10:26: daily. Dat 16 [facility] calcium 2021-04 Yes 1{tbl} Take 1 Univer s carbonate-v 0-21 tablet by ity of itamin D3 10:26: mouth 2 [place] ([id number] 16 (two) MD 0+D) 1,500 times a [place] o mg - 400 day with n units (600 meals. Cancer mg Center elemental calcium per tablet) per tablet bimatoprost 2021-04 Yes 1[drp] Administer Univers (LUMIGAN) 0-21 1 drop to ity o f 0.01% 10:26: both eyes [place] ophthalmic 16 at MA drops bedtime. [facility] cholecalcif 2021-04 Yes 400U Take 400 Un heriberto imer, 0-21 Units by ity of vitamin D3, 10:26: mouth [place] 400 units 16 twice MD tablet daily. [facility] calcium 2021-04 Yes 1{tbl} Take 1 Univer s carbonate-v 0-21 tablet by ity of itamin D3 10:26: mouth [place] 500 mg-10 16 twice MD mcg (400 daily. Anderso unit) [facility] atorvastati 2021-04 Yes 80mg Take 80 mg Univers n (LIPITOR) 0-21 by mouth ity of 80 mg 10:26: daily. Dat tablet 16 [facility] aspirin 81 2021-04 Yes 81mg Take 81 mg U nivers mg EC 0-21 by mouth ity of tablet 10:26: daily. Dat 16 MD Franck lizama [facility] calcium 2021-04 Yes 1{tbl} Take 1 Univer s carbonate-v 0-21 tablet by ity of itamin D3 10:26: mouth 2 [place] ([id number] 16 (two) MD 0+D) 1,500 times a [place] o mg - 400 day with n units (600 meals. Cancer mg Center elemental calcium per tablet) per tablet bimatoprost 2021-04 Yes 1[drp] Administer Univers (LUMIGAN) 0-21 1 drop to ity o f 0.01% 10:26: both eyes [place] ophthalmic 16 at MD drops bedtime. [facility] cholecalcif 2021-04 Yes 400U Take 400 Un heriberto imer, 0-21 Units by ity of vitamin D3, 10:26: mouth [place] 400 units 16 twice MD tablet daily. [facility] calcium 2021-04 Yes 1{tbl} Take 1 Univer s carbonate-v 0-21 tablet by ity of itamin D3 10:26: mouth [place] 500 mg-10 16 twice MD mcg (400 daily. Anderso unit) tab n [facility] atorvastati 2021-04 Yes 80mg Take 80 mg Univers n (LIPITOR) 0-21 by mouth ity of 80 mg 10:26: daily. Dat disla 16 MD Franck lizama [facility] aspirin 81 2021-04 Yes 81mg Take 81 mg U nivers mg EC 0-21 by mouth ity of tablet 10:26: daily. [facility] calcium 2021-04 Yes 1{tbl} Take 1 Univer s carbonate-v 0-21 tablet by ity of itamin D3 10:26: mouth 2 [place] ([id number] 16 (two) MD 0+D) 1,500 times a [place] o mg - 400 day with n units (600 meals. Cancer mg Center elemental calcium per tablet) per tablet bimatoprost 2021-04 Yes 1[drp] Administer Univers (LUMIGAN) 0-21 1 drop to ity o f 0.01% 10:26: both eyes [place] ophthalmic 16 at MA drops bedtime. [facility] cholecalcif 2021-04 Yes 400U Take 400 Un heriberto imer, 0-21 Units by ity of vitamin D3, 10:26: mouth [place] 400 units 16 twice MD tablet daily. [facility] calcium 2021-04 Yes 1{tbl} Take 1 Univer s carbonate-v 0-21 tablet by ity of itamin D3 10:26: mouth [place] 500 mg-10 16 twice MD mcg (400 daily. Anderso unit) tab n [facility] atorvastati 2021-04 Yes 80mg Take 80 mg Univers n (LIPITOR) 0-21 by mouth ity of 80 mg 10:26: daily. Dat tablet 16 [facility] aspirin 81 2021-04 Yes 81mg Take 81 mg U nivers mg EC 0-21 by mouth ity of tablet 10:26: daily. [place] 16 [facility] calcium 2021-04 Yes 1{tbl} Take 1 Univer s carbonate-v 0-21 tablet by ity of itamin D3 10:26: mouth 2 [place] ([id number] 16 (two) MD 0+D) 1,500 times a [place] o mg - 400 day with n units (600 meals. [facility] elemental calcium per tablet) per tablet bimatoprost 2021-04 Yes 1[drp] Administer Univers (LUMIGAN) 0-21 1 drop to ity o f 0.01% 10:26: both eyes [place] ophthalmic 16 at MD drops bedtime. [facility] cholecalcif 2021-04 Yes 400U Take 400 Un heriberto imer, 0-21 Units by ity of vitamin D3, 10:26: mouth [place] 400 units 16 twice MD tablet daily. [facility] calcium 2021-04 Yes 1{tbl} Take 1 Univer s carbonate-v 0-21 tablet by ity of itamin D3 10:26: mouth [place] 500 mg-10 16 twice MD mcg (400 daily. Anderso unit) [facility] atorvastati 2021-04 Yes 80mg Take 80 mg Univers n (LIPITOR) 0-21 by mouth ity of 80 mg 10:26: daily. Dat tablet 16 [facility] aspirin 81 2021-04 Yes 81mg Take 81 mg U nivers mg EC 0-21 by mouth ity of tablet 10:26: daily. [place] 16 MD Franck lizama [facility] [place] calcium 2021-04 Yes 1{tbl} Take 1 Univer s carbonate-v 0-21 tablet by ity of itamin D3 10:26: mouth 2 [place] ([id number] 16 (two) 0+D) 1,500 times a [place] o mg - 400 day with n units (600 [facility] elemental calcium per tablet) per tablet bimatoprost 2021-04 Yes 1[drp] Administer Univers (LUMIGAN) 0-21 1 drop to ity o f 0.01% 10:26: both eyes [place] ophthalmic 16 at MD drops bedtime. [facility] cholecalcif 2021-04 Yes 400U Take 400 Un heriberto imer, 0-21 Units by ity of vitamin D3, 10:26: mouth [place] 400 units 16 twice MD tablet daily. [facility] calcium 2021-04 Yes 1{tbl} Take 1 Univer s carbonate-v 0-21 tablet by ity of itamin D3 10:26: mouth [place] 500 mg-10 16 twice MD mcg (400 daily. Anderso unit) tab n [facility] atorvastati 2021-04 Yes 80mg Take 80 mg Univers n (LIPITOR) 0-21 by mouth ity of 80 mg 10:26: daily. [place] [facility] 16 MD Franck lizama [facility] [place] aspirin 81 2021-04 Yes 81mg Take 81 mg U nivers mg EC 0-21 by mouth ity of tablet 10:26: daily. [place] 16 MD Franck lizama [facility] calcium 2021-04 Yes 1{tbl} Take 1 Univer s carbonate-v 0-21 tablet by ity of itamin D3 10:26: mouth 2 [place] ([id number] 16 (two) 0+D) 1,500 times a [place] o mg - 400 day with n units (600 meals. [facility] elemental calcium per tablet) per tablet bimatoprost 2021-04 Yes 1[drp] Administer Univers (LUMIGAN) 0-21 1 drop to ity o f 0.01% 10:26: both eyes [place] ophthalmic 16 at MA drops bedtime. [facility] cholecalcif 2021-04 Yes 400U Take 400 Un heriberto imer, 0-21 Units by ity of vitamin D3, 10:26: mouth [place] 400 units 16 twice MD tablet daily. [facility] calcium 2021-04 Yes 1{tbl} Take 1 Univer s carbonate-v 0-21 tablet by ity of itamin D3 10:26: mouth [place] 500 mg-10 16 twice MD mcg (400 daily. Anderso unit) [facility] n [facility] atorvastati 2021-04 Yes 80mg Take 80 mg Univers n (LIPITOR) 0-21 by mouth ity of 80 mg 10:26: daily. [place] tablet 16 [facility] aspirin 81 2021-04 Yes 81mg Take 81 mg U nivers mg EC 0-21 by mouth ity of tablet 10:26: daily. Dat [place] MD [facility] calcium 2021-04 Yes 1{tbl} Take 1 Univer s carbonate-v 0-21 tablet by ity of itamin D3 10:26: mouth 2 [place] ([id number] 16 (two) MD 0+D) 1,500 times a [place] o mg - 400 day with n units (600 meals. [facility] elemental calcium per tablet) per tablet bimatoprost 2021-04 Yes 1[drp] Administer Univers (LUMIGAN) 0-21 1 drop to ity o f 0.01% 10:26: both eyes [place] ophthal[place] 16 at MD drops bedtime. [facility] cholecalcif 2021-04 Yes 400U Take 400 Un heriberto imer, 0-21 Units by ity of vitamin D3, 10:26: mouth [place] 400 units 16 twice MD tablet daily. [facility] calcium 2021-04 Yes 1{tbl} Take 1 Univer s carbonate-v 0-21 tablet by ity of itamin D3 10:26: mouth [place] 500 mg-10 16 twice MD mcg (400 daily. Anderso unit) [facility] atorvastati 2021-04 Yes 80mg Take 80 mg Univers n (LIPITOR) 0-21 by mouth ity of 80 mg 10:26: daily. Dat tablet 16 [facility] alda [facility] aspirin 81 2021-04 Yes 81mg Take 81 mg U nivers mg EC 0-21 by mouth ity of tablet 10:26: daily. [place] 16 MD [facility] calcium 2021-04 Yes 1{tbl} Take 1 Univer s carbonate-v 0-21 tablet by ity of itamin D3 10:26: mouth 2 [place] ([id number] 16 (two) 0+D) 1,500 times a [place] o mg - 400 day with n units (600 meals. [facility] elemental calcium per tablet) per tablet bimatoprost 2021-04 Yes 1[drp] Administer Univers (LUMIGAN) 0-21 1 drop to ity o f 0.01% 10:26: both eyes [place] ophthalmic 16 at MD drops bedtime. [facility] cholecalcif 2021-04 Yes 400U Take 400 Un heriberto imer, 0-21 Units by ity of vitamin D3, 10:26: mouth [place] 400 units 16 twice MD tablet daily. [facility] calcium 2021-04 Yes 1{tbl} Take 1 Univer s carbonate-v 0-21 tablet by ity of itamin D3 10:26: mouth [place] 500 mg-10 16 twice MD mcg (400 daily. Anderso unit) tab n [facility] atorvastati 2021-04 Yes 80mg Take 80 mg Univers n (LIPITOR) 0-21 by mouth ity of 80 mg 10:26: daily. Dat tablet 16 [facility] aspirin 81 2021-04 Yes 81mg Take 81 mg U nivers mg EC 0-21 by mouth ity of tablet 10:26: daily. [place] 16 [facility] [place] calcium 2021-04 Yes 1{tbl} Take 1 Univer s carbonate-v 0-21 tablet by ity of itamin D3 10:26: mouth 2 [place] ([id number] 16 (two) 0+D) 1,500 times a [place] o mg - 400 day with n units (600 meals. [facility] elemental calcium per tablet) per tablet potassium 2021-04 Yes Multiple 20meq Take 1 U nivers chloride 0-21 myeloma tablet (20 it y of (Klor-Con 00:00: mEq) by Dat M20) 20 mEq 00 mouth MD tablet daily. Anderso Take with n food [facility] potassium 2021-04 Yes Multiple 20meq Take 1 U nivers chloride 0-21 myeloma tablet (20 it y of (Klor-Con 00:00: mEq) by [place] [id number]) 20 mEq 00 mouth MD tablet daily. Anderso Take with [facility] potassium 2021-04 Yes Multiple 20meq Take 1 U nivers chloride 0-21 myeloma tablet (20 it y of (Klor-Con 00:00: mEq) by [place] [id number]) 20 mEq 00 mouth MD tablet daily. Anderso Take with [facility] potassium 2021-04 Yes Multiple 20meq Take 1 U nivers chloride 0-21 myeloma tablet (20 it y of (Klor-Con 00:00: mEq) by [place] [id number]) 20 mEq 00 mouth MD tablet daily. Anderso Take with [facility] potassium 2021-04 Yes Multiple 20meq Take 1 U nivers chloride 0-21 myeloma tablet (20 it y of (Klor-Con 00:00: mEq) by [place] [id number]) 20 mEq 00 mouth MD tablet daily. Anderso Take with [facility] potassium 2021-04 Yes Multiple 20meq Take 1 U nivers chloride 0-21 myeloma tablet (20 it y of (Klor-Con 00:00: mEq) by [place] [id number]) 20 mEq 00 mouth MD tablet daily. Anderso Take with [facility] potassium 2021-04 Yes Multiple 20meq Take 1 U nivers chloride 0-21 myeloma tablet (20 it y of (Klor-Con 00:00: mEq) by [place] [id number]) 20 mEq 00 mouth MD tablet daily. Anderso Take with [facility] potassium 2021-04 Yes Multiple 20meq Take 1 U nivers chloride 0-21 myeloma tablet (20 it y of (Klor-Con 00:00: mEq) by [place] [id number]) 20 mEq 00 mouth MD tablet daily. Anderso Take with [facility] potassium 2021-04 Yes Multiple 20meq Take 1 U nivers chloride 0-21 myeloma tablet (20 it y of (Klor-Con 00:00: mEq) by [place] [id number]) 20 mEq 00 mouth MD tablet daily. Anderso Take with [facility] potassium 2021-04- No Multiple 20meq Take 1 Univers chloride 0-21 05-05 myeloma tablet (20 i ty of (Klor-Con 00:00: 00:00 mEq) by [facility]) 20 mEq 00 :00 mouth MD tablet daily. Anderso Take with n [facility] potassium 2021-04 2023- No Multiple 20meq Take 1 Univers chloride 0-21 05-05 myeloma tablet (20 i ty of (Klor-Con 00:00: 00:00 mEq) by [place] kam M20) 20 mEq 00 :00 mouth MD tablet daily. Anderso Take with n [facility] calcium Yes 1{tbl} Take 1 Univer s carbonate-v 4-29 tablet by ity of itamin D3 10:42: mouth 2 [place] ([id number] 56 (two) MD 0+D) 1,500 times a [place] o mg - 400 day with n units (600 meals. [facility] elemental calcium per tablet) per tablet calcium Yes 1{tbl} Take 1 Univer s carbonate-v 4-29 tablet by ity of itamin D3 10:42: mouth 2 [place] ([id number] 56 (two) MD 0+D) 1,500 times a [place] o mg - 400 day with n units (600 meals. [facility] elemental calcium per tablet) per tablet calcium Yes 1{tbl} Take 1 Univer s carbonate-v 4-29 tablet by ity of itamin D3 10:42: mouth 2 [place] ([id number] 56 (two) MD 0+D) 1,500 times a [place] o mg - 400 day with n units (600 meals. [facility] elemental calcium per tablet) per tablet bimatoprost Yes 1[drp] Administer Univers (LUMIGAN) 4-29 1 drop to ity o f 0.01% 10:39: both eyes [place] ophthalmic 36 at MD drops [facility]. [facility] cholecalc[facility] Yes 400U Take 400 Un heriberto imer, 4-29 Units by ity of vitamin D3, 10:39: mouth [place] 400 units 36 twice MD tablet daily. [facility] calcium Yes 1{tbl} Take 1 Univer s carbonate-v 4-29 tablet by ity of itamin D3 10:39: mouth [place] (CALCIUM 36 twice MD 500 WITH D) daily. [place] o 500 n mg(1,250mg) Cancer -400 unit Center tab atorvastati Yes 80mg Take 80 mg Univers n (LIPITOR) 4-29 by mouth ity of 80 mg 10:39: daily. [place] tablet 36 [facility] lenalidomid Yes multiple 10mg Take 10 mg Univers e 4-29 myeloma by mouth. ity of (REVLIMID) 10:39: For 21 [place] capsule 10 36 days then MD mg 7 days off [facility] losartan 50 Yes 1{tbl} Take 1 Un heriberto mg tab 100 08-06 tablet by ity of mg, 10:39: mouth [place] hydroCHLORO 36 daily. thiazide 25 Anderso mg tab 25 n mg [facility] aspirin 81 Yes 81mg Take 81 mg U nivers mg EC 08-06 by mouth ity of tablet 10:39: daily. [place] 36 [facility] omeprazole Yes 40mg Take 40 mg U nivers (PriLOSEC) 08-06 by mouth ity o f 40 MG 10:39: every [place] capsule [facility] bimatoprost Yes 1[drp] Administer Univers (LUMIGAN) 08-06 1 drop to ity o f 0.01% 10:39: both eyes [place] ophthalmic 36 at MA drops bedtime. [facility] cholecalcif Yes 400U Take 400 Un heriberto imer, - Units by ity of vitamin D3, 10:39: mouth [place] 400 units 36 twice MD tablet daily. [facility] calcium Yes 1{tbl} Take 1 Univer s carbonate-v - tablet by ity of itamin D3 10:39: mouth [place] (CALCIUM 36 twice MD 500 WITH D) daily. [place] o 500 n mg(1,250mg) Cancer -400 unit Center tab atorvastati Yes 80mg Take 80 mg Univers n (LIPITOR) -29 by mouth ity of 80 mg 10:39: daily. [place] tablet 36 [facility] lenalidomid Yes multiple 10mg Take 10 mg Univers e 4-29 myeloma by mouth. ity of (REVLIMID) 10:39: For 21 [place] capsule 10 36 days then MD mg 7 days off [facility] losartan 50 Yes 1{tbl} Take 1 Un heriberto mg tab 100 4-29 tablet by ity of mg, 10:39: mouth [place] hydroCHLORO 36 daily. thiazide 25 Anderso mg tab 25 n mg [facility] aspirin 81 Yes 81mg Take 81 mg U nivers mg EC 4-29 by mouth ity of tablet 10:39: daily. [place] 36 [facility] omeprazole Yes 40mg Take 40 mg U nivers (PriLOSEC) 4-29 by mouth ity o f 40 MG 10:39: every [place] capsule 36 [facility] bimatoprost Yes 1[drp] Administer Univers (LUMIGAN) 4- 1 drop to ity o f 0.01% 10:39: both eyes [place] ophthalmic 36 at MD drops bedtime. [facility] cholecalcif Yes 400U Take 400 Un heriberto imer, 4-29 Units by ity of vitamin D3, 10:39: mouth [place] 400 units 36 twice MD tablet daily. [facility] calcium Yes 1{tbl} Take 1 Univer s carbonate-v 4-29 tablet by ity of itamin D3 10:39: mouth [place] (CALCIUM 36 twice MD 500 WITH D) daily. [place] o 500 n mg(1,250mg) Cancer -400 unit Center tab atorvastati Yes 80mg Take 80 mg Univers n (LIPITOR) 4-29 by mouth ity of 80 mg 10:39: daily. [place] tablet 36 [facility] lenalidomid Yes multiple 10mg Take 10 mg Univers e 4-29 myeloma by mouth. ity of (REVLIMID) 10:39: For 21 [place] capsule 10 36 days then MD mg 7 days off [facility] losartan 50 Yes 1{tbl} Take 1 Un heriberto mg tab 100 4-29 tablet by ity of mg, 10:39: mouth [place] hydroCHLORO 36 daily. thiazide 25 Anderso mg tab 25 n mg [facility] aspirin 81 Yes 81mg Take 81 mg U nivers mg EC 4-29 by mouth ity of tablet 10:39: daily. [place] 36 [facility] omeprazole Yes 40mg Take 40 mg U nivers (PriLOSEC) 4-29 by mouth ity o f 40 MG 10:39: every [place] capsule 36 morning [facility] valACYclovi Yes Multiple 500mg Take 1 Univers r (VALTREX) 4-29 myeloma tablet ity of 500 mg 00:00: (500 mg) [place] tablet 00 by mouth MD daily. [facility] valACYclovi Yes Multiple 500mg Take 1 Univers r (VALTREX) 4-29 myeloma tablet ity of 500 mg 00:00: (500 mg) [place] tablet 00 by mouth MD daily. [facility] valACYclovi Yes Multiple 500mg Take 1 Univers r (VALTREX) 4-29 myeloma tablet ity of 500 mg 00:00: (500 mg) [place] tablet 00 by mouth MD daily. [facility] valACYclovi Yes Multiple 500mg Take 1 Univers r (VALTREX) 4-29 myeloma tablet ity of 500 mg 00:00: (500 mg) [place] tablet 00 by mouth MD daily. [facility] valACYclovi Yes Multiple 500mg Take 1 Univers r (VALTREX) 4-29 myeloma tablet ity of 500 mg 00:00: (500 mg) [place] tablet 00 by mouth MD daily. [facility] valACYclovi Yes Multiple 500mg Take 1 Univers r (VALTREX) 4-29 myeloma tablet ity of 500 mg 00:00: (500 mg) [place] tablet 00 by mouth MD daily. [facility] valACYclovi Yes Multiple 500mg Take 1 Univers r (VALTREX) 4-29 myeloma tablet ity of 500 mg 00:00: (500 mg) [place] tablet 00 by mouth MD daily. [facility] valACYclovi Yes Multiple 500mg Take 1 Univers r (VALTREX) 4-29 myeloma tablet ity of 500 mg 00:00: (500 mg) [place] tablet 00 by mouth MD daily. [facility] valACYclovi Yes Multiple 500mg Take 1 Univers r (VALTREX) 4-29 myeloma tablet ity of 500 mg 00:00: (500 mg) [place] tablet 00 by mouth MD daily. [facility] valACYclovi Yes Multiple 500mg Take 1 Univers r (VALTREX) 4-29 myeloma tablet ity of 500 mg 00:00: (500 mg) [place] tablet 00 by mouth MD daily. [facility] valACYclovi Yes Multiple 500mg Take 1 Univers r (VALTREX) 4-29 myeloma tablet ity of 500 mg 00:00: (500 mg) [place] tablet 00 by mouth MD daily. [facility] valACYclovi Yes Multiple 500mg Take 1 Univers r (VALTREX) 4-29 myeloma tablet ity of 500 mg 00:00: (500 mg) [place] tablet 00 by mouth MD daily. [facility] valACYclovi 2022- No Multiple 500mg Take 1 Univers r (VALTREX) 4-29 05-11 myeloma tablet it y of 500 mg 00:00: 00:00 (500 mg) [place] tablet 00 :00 by mouth MD daily. [facility] valACYclovi 2022- No Multiple 500mg Take 1 Univers r (VALTREX) 4-29 05-11 myeloma tablet it y of 500 mg 00:00: 00:00 (500 mg) [place] tablet 00 :00 by mouth MD daily. [facility] LORazepam Yes Univers (ATIVAN) 1 4-25 ity of mg tablet 00:00: MD [facility] LORazepam Yes Univers (ATIVAN) 1 4-25 ity of mg tablet 00:00: MD [facility] LORazepam Yes Univers (ATIVAN) 1 4-25 ity of mg tablet 00:00: MD [facility] LORazepam Yes Univers (ATIVAN) 1 4-25 ity of mg tablet 00:00: [facility] Univers (ATIVAN) 1 4-25 ity of mg tablet 00:00: [facility] LOR[facility] Yes Univers (ATIVAN) 1 4-25 ity of mg tablet 00:00: [facility] LOR[facility]epam Yes Univers (ATIVAN) 1 4-25 ity of mg tablet 00:00: MD Farnck lizama [facility] LORazepam Yes Univers (ATIVAN) 1 4-25 ity of mg tablet 00:00: MD Franck lizama [facility] [place] LORazepam 2021-0 Yes Univers (ATIVAN) 1 4-25 ity of mg tablet 00:00: MD Franck lizama [facility] LORazepam 2021-0 Yes Univers (ATIVAN) 1 4-25 ity of mg tablet 00:00: MD Franck lizama [facility] [place] LORazepam 2021-0 Yes Univers (ATIVAN) 1 4-25 ity of mg tablet 00:00: MD Franck lizama [facility] LORazepam 2021-0 Yes Univers (ATIVAN) 1 4-25 ity of mg tablet 00:00: MD Franck lizama [facility] [place] LORazepam 3- No Univers (ATIVAN) 1 08-02 05-05 ity of mg tablet 00:00: 00:00 [place] 00 :00 MD Franck lizama [facility] LORazepam 0 2023- No Univers (ATIVAN) 08-02 05-05 ity of mg tablet 00:00: 00:00 [place] 00 :00 MD Franck lizama [facility] LORazepam 2021-0 2021- No Multiple 1mg Take 1 U nivers (Ativan) 1 08-02- myeloma tablet (1 ity of mg tablet 00:00: 04:59 mg) by [place] 00 :00 mouth once MD for 1 Anderso dose. Take n Ativan 1 Cancer mg by Center mouth 15 minutes prior to MRI imaging. LORazepam 2021- No Multiple 1mg Take 1 U nivers (Ativan) 1 08-02-26 myeloma tablet (1 ity of mg tablet 00:00: 04:59 mg) by [place] 00 :00 mouth once MD for 1 Anderso dose. Take n Ativan 1 Cancer mg by Center mouth 15 minutes prior to MRI imaging. LORazepam 0 2021- No Multiple 1mg Take 1 U nivers (Ativan) 1 08-02-26 myeloma tablet (1 ity of mg tablet 00:00: 04:59 mg) by [place] 00 :00 mouth once MD for 1 Anderso dose. Take n Ativan 1 Cancer mg by Center mouth 15 minutes prior to MRI imaging. LORazepam 2022-0 2022- No Multiple 1mg Take 1 U nivers (Ativan) 1 08-02-26 myeloma tablet (1 ity of mg tablet 00:00: 04:59 mg) by [place] 00 :00 mouth once MD for 1 Anderso dose. Take n Ativan 1 Cancer mg by Center mouth 15 minutes prior to MRI imaging. LORazepam 2022-0 2022- No Multiple 1mg Take 1 U nivers (Ativan) 1 08-02-26 myeloma tablet (1 ity of mg tablet 00:00: 04:59 mg) by [place] 00 :00 mouth once MD for 1 Anderso dose. Take n Ativan 1 Cancer mg by Center mouth 15 minutes prior to MRI imaging. LORazepam 2021-0 2021- No Multiple 1mg Take 1 U nivers (Ativan) 1 08-02- myeloma tablet (1 ity of mg tablet 00:00: 04:59 mg) by [place] 00 :00 mouth once MD for 1 Anderso dose. Take n Ativan 1 Cancer mg by Center mouth 15 minutes prior to MRI imaging. LORazepam 2021-0 2022- No Multiple 1mg Take 1 U nivers (Ativan) 1 08-02-26 myeloma tablet (1 ity of mg tablet 00:00: 04:59 mg) by [place] 00 :00 mouth once MD for 1 Anderso dose. Take n Ativan 1 Cancer mg by Center mouth 15 minutes prior to MRI imaging. LORazepam 2022-0 2022- No Multiple 1mg Take 1 U nivers (Ativan) 1 08-02-26 myeloma tablet (1 ity of mg tablet 00:00: 04:59 mg) by [place] 00 :00 mouth once MD for 1 Anderso dose. Take n Ativan 1 Cancer mg by Center mouth 15 minutes prior to MRI imaging. LORazepam 2022-0 2022- No Multiple 1mg Take 1 U nivers (Ativan) 1 08-02-26 myeloma tablet (1 ity of mg tablet 00:00: 04:59 mg) by [place] 00 :00 mouth once MD for 1 Anderso dose. Take n Ativan 1 Cancer mg by Center mouth 15 minutes prior to MRI imaging. LORazepam 2021- No Multiple 1mg Take 1 U nivers (Ativan) 1 08-02- myeloma tablet (1 ity of mg tablet 00:00: 04:59 mg) by [place] 00 :00 mouth once MD for 1 Anderso dose. Take n Ativan 1 Cancer mg by Center mouth 15 minutes prior to MRI imaging. LORazepam 2021- No Multiple 1mg Take 1 U nivers (Ativan) 1 08-02- myeloma tablet (1 ity of mg tablet 00:00: 04:59 mg) by [place] 00 :00 mouth once MD for 1 Anderso dose. Take n Ativan 1 Cancer mg by Center mouth 15 minutes prior to MRI imaging. LORazepam 2021- No Multiple 1mg Take 1 U nivers (Ativan) 1 08-02 myeloma tablet (1 ity of mg tablet 00:00: 04:59 mg) by [place] 00 :00 mouth once MD for 1 Anderso dose. Take n Ativan 1 Cancer mg by Center mouth 15 minutes prior to MRI imaging. latanoprost Yes 1[drp] Administer Univers (XALATAN) 3-11 1 drop to ity o f 0.005% 00:00: both eyes [place] ophthalmic 00 daily. MD roberts [facility] latanoprost Yes 1[drp] Administer Univers (XALATAN) 3-11 1 drop to ity o f 0.005% 00:00: both eyes [place] ophthalmic 00 daily. MD roberts [facility] latanoprost Yes 1[drp] Administer Univers (XALATAN) 3-11 1 drop to ity o f 0.005% 00:00: both eyes [place] ophthalmic 00 daily. MD roberts [facility] latanoprost Yes 1[drp] Administer Univers (XALATAN) 3-11 1 drop to ity o f 0.005% 00:00: both eyes [place] ophthalmic 00 daily. MD roberts [facility] latanoprost Yes 1[drp] Administer Univers (XALATAN) 3-11 1 drop to ity o f 0.005% 00:00: both eyes [place] ophthalmic 00 daily. MD roberts [facility] latanoprost Yes 1[drp] Administer Univers (XALATAN) 3-11 1 drop to ity o f 0.005% 00:00: both eyes [place] ophthalmic 00 daily. MD roberts [facility] latanoprost Yes 1[drp] Administer Univers (XALATAN) 3-11 1 drop to ity o f 0.005% 00:00: both eyes [place] ophthalmic 00 daily. MD roberts [facility] latanoprost Yes 1[drp] Administer Univers (XALATAN) 3-11 1 drop to ity o f 0.005% 00:00: both eyes [place] ophthalmic 00 daily. MD roberts [facility] latanoprost Yes 1[drp] Administer Univers (XALATAN) 3-11 1 drop to ity o f 0.005% 00:00: both eyes [place] ophthalmic 00 daily. MD roberts [facility] latanoprost Yes 1[drp] Administer Univers (XALATAN) 3-11 1 drop to ity o f 0.005% 00:00: both eyes [place] ophthalmic 00 daily. MD roberts [facility] latanoprost Yes 1[drp] Administer Univers (XALATAN) 3-11 1 drop to ity o f 0.005% 00:00: both eyes [place] ophthalmic 00 daily. MD roberts [facility] latanoprost Yes 1[drp] Administer Univers (XALATAN) 3-11 1 drop to ity o f 0.005% 00:00: both eyes [place] ophthalmic 00 daily. MD roberts [facility] latanoprost Yes 1[drp] Administer Univers (XALATAN) 3-11 1 drop to ity o f 0.005% 00:00: both eyes [place] ophthalmic 00 daily. MD roberts [facility] latanoprost Yes 1[drp] Administer Univers (XALATAN) 3-11 1 drop to ity o f 0.005% 00:00: both eyes [place] ophthalmic 00 daily. MD roberts [facility] lansoprazol 0 Yes 30mg Take 30 mg Univers e 3-09 by mouth ity of (PREVACID) 00:00: daily. [place] [address] 00 MD capsule [facility] lansoprazol 0 Yes 30mg Take 30 mg Univers e 3-09 by mouth ity of (PREVACID) 00:00: daily. [place] [address] 00 MD capsule [facility] lansoprazol 0 Yes 30mg Take 30 mg Univers e 3-09 by mouth ity of (PREVACID) 00:00: daily. [place] [address] 00 MD capsule [facility] lansoprazol 0 Yes 30mg Take 30 mg Univers e 3-09 by mouth ity of (PREVACID) 00:00: daily. [place] [address] 00 MD capsule [facility] lansoprazol 0 Yes 30mg Take 30 mg Univers e 3-09 by mouth ity of (PREVACID) 00:00: daily. [place] [address] 00 MD capsule [facility] lansoprazol 0 Yes 30mg Take 30 mg Univers e 3-09 by mouth ity of (PREVACID) 00:00: daily. [place] [address] 00 MD capsule [facility] lansoprazol 0 Yes 30mg Take 30 mg Univers e 3-09 by mouth ity of (PREVACID) 00:00: daily. [place] [address] 00 MD capsule [facility] lansoprazol 0 Yes 30mg Take 30 mg [facility] by mouth ity of (PREVACID) 00:00: daily. [place] [address] 00 MD capsule [facility] lansoprazol 0 Yes 30mg Take 30 mg [facility] e 3[facility] by mouth ity of (PREVACID) 00:00: daily. [place] [address] 00 MD capsule [facility] lansoprazol 0 Yes 30mg Take 30 mg [facility] e 3[facility] by mouth ity of (PREVACID) 00:00: daily. [place] [address] 00 MD capsule [facility] lansoprazol 0 Yes 30mg Take 30 mg [facility] e 3-09 by mouth ity of (PREVACID) 00:00: daily. [place] 30 MG 00 capsule [facility] lansoprazol Yes 30mg Take 30 mg [facility] e 06[facility] by mouth ity of (PREVACID) 00:00: daily. [place] 30 MG 00 capsule [facility] lansoprazol 3- No 30mg Take 30 mg [facility] e 06[facility]16 by mouth ity of (PREVACID) 00:[place] 00 :00 capsule [facility] lansoprazol 2022- No 30mg Take 30 mg [facility] e 06[facility]16 by mouth ity of (PREVACID) [place] 00 :00 capsule [facility] cholecalcif Yes 1{tbl} QD Take 1 Me [facility]odi imer, 5-[address] vitamin D3, 14:26: mouth Hospi ta (VITAMIN D3 54 daily. l ORAL) calcium Yes 2{tbl} QD Take 2 Method [...] mouth Hospita tablet 54 every l morning. calcium 0 Yes 2{tbl} QD Take 2 Method i carbonate-v 5-[address] itamin D3 14:26: mouth Hospita 500 54 daily. l mg(1,250mg) -400 unit tablet aspirin 0 Yes 81mg Q24H Take 81 mg [facility]n (ECOTRIN) 5-[address] 81 MG 14:26: daily. Hospita enteric 54 l coated tablet losartan-hy 2020-0 Yes 1{tbl} QD Take 1 Me [facility] drochloroth 5-[address] iazide 14:26: mouth Hospita (Hyzaar) 54 every l 100-25 mg morning. per tablet valACYclovi 2020-0 Yes 500mg QD Take 500 M ethodi r (VALTREX) 5-[address] 500 MG 14:26: mouth Hospita tablet 54 every l morning. cholecalcif 2020-0 Yes 1{tbl} QD Take 1 [facility] imer, 5-[address] vitamin D3, 14:26: mouth Hospi ta (VITAMIN D3 54 daily. l ORAL) cholecalcif 2020-0 Yes 1{tbl} QD Take 1 [facility] imer, 5-[address] vitamin D3, 14:26: mouth Hospi ta (VITAMIN D3 54 daily. l ORAL) calcium Yes 2{tbl} QD Take 2 Method i carbonate-v 5-[address] itamin D3 14:26: mouth Hospita 500 54 daily. l mg(1,250mg) -400 unit tablet aspirin Yes 81mg Q24H Take 81 mg Meth shen (ECOTRIN) 5-[address] 81 MG 14:26: daily. Hospita enteric 54 l coated tablet losartan-hy 2020-0 Yes 1{tbl} QD Take 1 Me [facility] drochloroth 5-[address] iazide 14:26: mouth Hospita (Hyzaar) 54 every l 100-25 mg morning. per tablet valACYclovi 2020-0 Yes 500mg QD Take 500 M ethodi r (VALTREX) 5-[address] 500 MG 14:26: mouth Hospita tablet 54 every l morning. cholecalcif 2020-0 Yes 1{tbl} QD Take 1 Me [facility]odi imer, 5-[address] vitamin D3, 14:26: mouth Hospi ta (VITAMIN D3 54 daily. l ORAL) calcium 2020-0 Yes 2{tbl} QD Take 2 Method i carbonate-v 5-[address] itamin D3 14:26: mouth Hospita 500 54 daily. l mg(1,250mg) -400 unit tablet aspirin 2020-0 Yes 81mg Q24H Take 81 mg Meth shen (ECOTRIN) 5-[address] 81 MG 14:26: daily. Hospita enteric 54 l coated tablet losartan-hy 0 Yes 1{tbl} QD Take 1 Me thodi drochloroth 5-[address] iazide 14:26: mouth Hospita (Hyzaar) 54 every l 100-25 mg morning. per tablet valACYclovi 2020-0 Yes 500mg QD Take 500 M ethodi r (VALTREX) 5-[address] 500 MG 14:26: mouth Hospita tablet 54 every l morning. cholecalcif 2020-0 Yes 1{tbl} QD Take 1 Me [facility]odi imer, 5-[address] vitamin D3, 14:26: mouth Hospi ta (VITAMIN D3 54 daily. l ORAL) calcium 2020-0 Yes 2{tbl} QD Take 2 Method i carbonate-v 5-[address] itamin D3 14:26: mouth Hospita 500 54 daily. l mg(1,250mg) -400 unit tablet aspirin 2020-0 Yes 81mg Q24H Take 81 mg Meth shen (ECOTRIN) 5-[address] 81 MG 14:26: daily. Hospita enteric 54 l coated tablet losartan-hy Yes 1{tbl} QD Take 1 Me thodi drochloroth 5-[address] iazide 14:26: mouth Hospita (Hyzaar) 54 every l 100-25 mg morning. per tablet valACYclovi 2020-0 Yes 500mg QD Take 500 M ethodi r (VALTREX) 5-[address] 500 MG 14:26: mouth Hospita tablet 54 every l morning. cholecalcif 2020-0 Yes 1{tbl} QD Take 1 Me thodi imer, 5-[address] vitamin D3, 14:26: mouth Hospi ta (VITAMIN D3 54 daily. l ORAL) calcium 2020-0 Yes 2{tbl} QD Take 2 Method i carbonate-v 5-[address] itamin D3 14:26: mouth Hospita 500 54 daily. l mg(1,250mg) -400 unit tablet aspirin 2020-0 Yes 81mg Q24H Take 81 mg Meth [...] Hospita tablet 54 every l morning. cholecalcif 2020-0 Yes 1{tbl} QD Take 1 Me [facility]odi imer, 5-[address] vitamin D3, 14:26: mouth Hospi ta (VITAMIN D3 54 daily. l ORAL) calcium 0 Yes 2{tbl} QD Take 2 Method i carbonate-v 5-[address] itamin D3 14:26: mouth Hospita 500 54 daily. l mg(1,250mg) -400 unit tablet aspirin 2020-0 Yes 81mg Q24H Take 81 mg Meth [...] Hospita tablet 54 every l morning. cholecalcif 2020-0 Yes 1{tbl} QD Take 1 Me [facility]odi imer, 5-[address] vitamin D3, 14:26: mouth Hospi ta (VITAMIN D3 54 daily. l ORAL) calcium 2020-0 Yes 2{tbl} QD Take 2 Method i carbonate-v 5-[address] itamin D3 14:26: mouth Hospita 500 54 daily. l mg(1,250mg) -400 unit tablet aspirin 2020-0 Yes 81mg Q24H Take 81 mg Meth shen (ECOTRIN) 5-[address] 81 MG 14:26: daily. Hospita enteric 54 l coated tablet losartan-hy 0 Yes 1{tbl} QD Take 1 Me thodi drochloroth 5-[address] iazide 14:26: mouth Hospita (Hyzaar) 54 every l 100-25 mg morning. per tablet valACYclovi 2020-0 Yes 500mg QD Take 500 M ethodi r (VALTREX) 5-[address] 500 MG 14:26: mouth Hospita tablet 54 every l morning. cholecalcif 2020-0 Yes 1{tbl} QD Take 1 Me [facility]odi imer, 5-[address] vitamin D3, 14:26: mouth Hospi ta (VITAMIN D3 54 daily. l ORAL) calcium 2020-0 Yes 2{tbl} QD Take 2 Method i carbonate-v 5-[address] itamin D3 14:26: mouth Hospita 500 54 daily. l mg(1,250mg) -400 unit tablet aspirin 2020-0 Yes 81mg Q24H Take 81 mg Meth shen (ECOTRIN) 5-[address] 81 MG 14:26: daily. Hospita enteric 54 l coated tablet losartan-hy 0 Yes 1{tbl} QD Take 1 Me [...] (VITAMIN D3 54 daily. l ORAL) calcium 2020-0 Yes 2{tbl} QD Take 2 Method i carbonate-v 5-[address] itamin D3 14:26: mouth Hospita 500 54 daily. l mg(1,250mg) -400 unit tablet aspirin 2020-0 Yes 81mg Q24H Take 81 mg Meth shen (ECOTRIN) 5-[address] 81 MG 14:26: daily. Hospita enteric 54 l coated tablet losartan-hy 0 Yes 1{tbl} QD Take 1 Me thodi drochloroth 5-[address] iazide 14:26: mouth Hospita (Hyzaar) 54 every l 100-25 mg morning. per tablet valACYclovi 0 Yes 500mg QD Take 500 M ethodi r (VALTREX) 5-[address] 500 MG 14:26: mouth Hospita tablet 54 every l morning. cholecalcif 2020-0 Yes 1{tbl} QD Take 1 Me [facility]odi imer, 5-[address] vitamin D3, 14:26: mouth Hospi ta (VITAMIN D3 54 daily. l ORAL) calcium 2020-0 Yes 2{tbl} QD Take 2 Method i carbonate-v 5-[address] itamin D3 14:26: mouth Hospita 500 54 daily. l mg(1,250mg) -400 unit tablet aspirin 2020-0 Yes 81mg Q24H Take 81 mg Meth [...] (VITAMIN D3 54 daily. l ORAL) calcium 2020-0 Yes 2{tbl} QD Take 2 Method i carbonate-v 5-[address] itamin D3 14:26: mouth Hospita 500 54 daily. l mg(1,250mg) -400 unit tablet aspirin 2020-0 Yes 81mg Q24H Take 81 mg Meth shen (ECOTRIN) 5-[address] 81 MG 14:26: daily. Hospita enteric 54 l coated tablet losartan-hy 2020-0 Yes 1{tbl} QD Take 1 Me thodi [...] (VITAMIN D3 54 daily. l ORAL) calcium 2020-0 Yes 2{tbl} QD Take 2 Method i carbonate-v 5-[address] itamin D3 14:26: mouth Hospita 500 54 daily. l mg(1,250mg) -400 unit tablet aspirin 2020-0 Yes 81mg Q24H Take 81 mg Meth shen (ECOTRIN) 5-[address] 81 MG 14:26: daily. Hospita enteric 54 l coated tablet losartan-hy 0 Yes 1{tbl} QD Take 1 Me [...] daily. l mg(1,250mg) -400 unit tablet aspirin 2020-0 Yes 81mg Q24H Take 81 mg Meth shen (ECOTRIN) 5-[address] 81 MG 14:26: daily. Hospita enteric 54 l coated tablet losartan-hy 0 Yes 1{tbl} QD Take 1 Me thodi drochloroth 5-[address] iazide 14:26: mouth Hospita (Hyzaar) 54 every l 100-25 mg morning. per tablet valACYclovi 0 Yes 500mg QD Take 500 M ethodi r (VALTREX) 5-[address] 500 MG 14:26: mouth Hospita tablet 54 every l morning. valACYclovi 2021- No Multiple 500mg Take 1 Univers r (VALTREX) 08-21 myeloma tablet it y of 500 mg 00:00: 00:00 (500 mg) [place] tablet 00 :00 by mouth MD daily. [facility] valACYclovi 2021- No Multiple 500mg Take 1 Univers r (VALTREX) 08-21 myeloma tablet it y of 500 mg 00:00: 00:00 (500 mg) [place] tablet 00 :00 by mouth MD daily. [facility] valACYclovi 2021- No Multiple 500mg Take 1 Univers r (VALTREX) 08-21 myeloma tablet it y of 500 mg 00:00: 00:00 (500 mg) [place] tablet 00 :00 by mouth MD daily. [facility] valACYclovi 2021- No Multiple 500mg Take 1 Univers r (VALTREX) 08-21 myeloma tablet it y of 500 mg 00:00: 00:00 (500 mg) [place] tablet 00 :00 by mouth MD daily. [facility] valACYclovi 2021- No Multiple 500mg Take 1 Univers r (VALTREX) 08-21 myeloma tablet it y of 500 mg 00:00: 00:00 (500 mg) [place] tablet 00 :00 by mouth MD daily. [facility] valACYclovi 2021- No Multiple 500mg Take 1 Univers r (VALTREX) 08-21 myeloma tablet it y of 500 mg 00:00: 00:00 (500 mg) [place] tablet 00 :00 by mouth MD daily. [facility] valACYclovi 2021- No Multiple 500mg Take 1 Univers r (VALTREX) 08-21 myeloma tablet it y of 500 mg 00:00: 00:00 (500 mg) [place] tablet 00 :00 by mouth MD daily. [facility] valACYclovi 2021- No Multiple 500mg Take 1 Univers r (VALTREX) 08-21 myeloma tablet it y of 500 mg 00:00: 00:00 (500 mg) [place] tablet 00 :00 by mouth MD daily. [facility] valACYclovi 2021- No Multiple 500mg Take 1 Univers r (VALTREX) -08-06 myeloma tablet it y of 500 mg 00:00: 00:00 (500 mg) [place] tablet 00 :00 by mouth MD daily. [facility] valACYclovi 2021- No Multiple 500mg Take 1 Univers r (VALTREX) 08-21 myeloma tablet it y of 500 mg 00:00: 00:00 (500 mg) [place] tablet 00 :00 by mouth MD daily. [facility] valACYclovi 2021- No Multiple 500mg Take 1 Univers r (VALTREX) 08-21 myeloma tablet it y of 500 mg 00:00: 00:00 (500 mg) [place] tablet 00 :00 by mouth MD daily. [facility] valACYclovi 2021- No Multiple 500mg Take 1 Univers r (VALTREX) 08-21 myeloma tablet it y of 500 mg 00:00: 00:00 (500 mg) [place] tablet 00 :00 by mouth MD daily. [facility] cholecalcif Yes 400U Take 400 [facility] I [...] Center solution both eyes at night calcium Yes Q24H daily. [facility] carbonate-v [...] EC 13:59: Medical tablet 39 Center bimatoprost 2020-[address] [facility] (Lumigan) 1-06 0.01 % eye [facility] 0.01 % Drop 13:59: drops 1 Med ical ophthalmic 39 drop to Center solution both eyes at night calcium 2021-0 Yes Q24H daily. [facility] carbonate-v 1-06 [facility] it[facility] D3 13:59: Medical (Calcium 39 Center 600 with Vitamin D3) 600 mg(1,500mg) -500 unit Cap cholecalcif 2021-0 Yes 400U Take [address] imer 1-06 Units by [facility] (VITAMIN 13:59: mouth. Medical D3) 10 mcg 39 Center (400 unit) Tab tablet calcium 202-0 Yes Q24H daily. [facility] carbonate-v 1-06 [facility] itamin D3 13:59: Medical (Calcium 39 Center 600 with Vitamin D3) 600 mg(1,500mg) -500 unit Cap aspirin 2021-0 Yes Q24H daily. [facility] (Aspir-) 1-06 [facility] 81 MG EC 13:59: Medical tablet 39 Center bimatoprost 2020-[address] [facility] ([facility]umigan) 1-06 0.01 % eye [facility] 0.01 % Drop 13:59: drops 1 Med ical ophthalmic 39 drop to Center solution both eyes at night cholecalcif 202-0 Yes 400U Take [address] imer 1-06 Units by [facility] (VITAMIN 13:59: mouth. Medical D3) 10 mcg 39 Center (400 unit) Tab tablet calcium 2021-0 Yes Q24H daily. [facility] carbonate-v 1-06 [facility] itamin D3 13:59: Medical (Calcium 39 Center 600 with Vitamin D3) 600 mg(1,500mg) -500 unit Cap cholecalcif 2021-0 Yes 400U Take [address] imer 1-06 Units by [facility] (VITAMIN 13:59: mouth. Medical D3) 10 mcg 39 Center (400 unit) Tab tablet aspirin 2021-0 Yes Q24H daily. [facility] (Aspir-81) 1-06 [facility] 81 MG EC 13:59: Medical tablet 39 Center bimatoprost 2020-[address] [facility] ([facility]umigan) 1-06 0.01 % eye [facility] 0.01 % Drop 13:59: drops 1 Med ical ophthalmic 39 drop to Center solution both eyes at night aspirin 2020-0 Yes Q24H daily. [facility] (Aspir-81) 1-06 [facility] 81 MG EC 13:59: Medical tablet 39 Center calcium 2020-0 Yes Q24H daily. [facility] [...] 13:59: Medical tablet 39 Center bim[facility]oprost Yes [facility] ([facility]um[facility]) 1-06 0.01 % eye [...] 13:59: Medical tablet 39 Center bimatoprost Yes [facility] (Lumigan) 1-06 0.01 % eye [facility] 0.01 % Drop 13:59: drops 1 Med ical ophthalmic 39 drop to Center solution both eyes at night bimatoprost Yes [facility] (Lumigan) 1-06 0.01 % eye [facility] 0.01 % Drop 13:59: drops 1 Med ical ophthalmic 39 drop to Center solution both eyes at night calcium 2020-0 Yes Q24H daily. [facility] carbonate-v 1-06 [facility] itamin D3 13:59: Medical (Calcium 39 Center 600 with Vitamin D3) 600 mg(1,500mg) -500 unit Cap cholecalcif 2021-0 Yes 400U Take [address] imer 1-06 Units by [facility] (VITAMIN 13:59: mouth. Medical D3) 10 mcg 39 Center (400 unit) Tab tablet aspirin 2021-0 Yes Q24H daily. [facility] (Aspir-81) 1-06 [facility] 81 MG EC 13:59: Medical tablet 39 Center bimatoprost 2020-[address] [facility] ([facility]) 1-06 0.01 % eye [facility] 0.01 % Drop 13:59: drops 1 Med ical ophthalmic 39 drop to Center solution both eyes at night calcium 2020-0 Yes Q24H daily. [facility] carbonate-v 1-06 [facility] itamin D3 13:59: Medical (Calcium 39 Center 600 with Vitamin D3) 600 mg(1,500mg) -500 unit Cap cholecalcif 2020-0 Yes 400U Take [address] imer 1-06 Units by [facility] (VITAMIN 13:59: mouth. Medical D3) 10 mcg 39 Center (400 unit) Tab tablet aspirin 2021-0 Yes Q24H daily. [facility] (Aspir-81) 1-06 [facility] 81 MG EC 13:59: Medical tablet 39 Center bimatoprost 2020-[address] [facility] ([facility]) 1-06 0.01 % eye [facility] 0.01 % Drop 13:59: drops 1 Med ical ophthalmic 39 drop to Center solution both eyes at night calcium 202-0 Yes Q24H daily. [facility] carbonate-v 1-06 [facility] itamin D3 13:59: Medical (Calcium 39 Center 600 with Vitamin D3) 600 mg(1,500mg) -500 unit Cap cholecalcif 202-0 Yes 400U Take [address] imer 1-06 Units by [facility] (VITAMIN 13:59: mouth. Medical D3) 10 mcg 39 Center (400 unit) Tab tablet aspirin 2021-0 Yes Q24H daily. [facility] (Aspir-81) 1-06 [facility] 81 MG EC 13:59: Medical tablet 39 Center bimatoprost 2020-[address] [facility] ([facility]umigan) 1-06 0.01 % eye [facility] 0.01 % Drop 13:59: drops 1 Med ical ophthalmic 39 drop to Center solution both eyes at night calcium 202-0 Yes Q24H daily. [facility] carbonate-v 1-06 [facility] itamin D3 13:59: Medical (Calcium 39 Center 600 with Vitamin D3) 600 mg(1,500mg) -500 unit Cap cholecalcif 2021-0 Yes 400U Take [address] imer 1-06 Units by [facility] (VITAMIN 13:59: mouth. Medical D3) 10 mcg 39 Center (400 unit) Tab tablet aspirin 202-0 Yes Q24H daily. [facility] (Aspir-81) 1-06 [facility] 81 MG EC 13:59: Medical tablet 39 Center bimatoprost 2020-[address] [facility] ([facility]umigan) 1-06 0.01 % eye [facility] 0.01 % Drop 13:59: drops 1 Med ical ophthalmic 39 drop to Center solution both eyes at night calcium 2020-0 Yes Q24H daily. [facility] carbonate-v 1-06 [facility] itamin D3 13:59: Medical (Calcium 39 Center 600 with Vitamin D3) 600 mg(1,500mg) -500 unit Cap cholecalcif 2020-0 Yes 400U Take [address] imer 1-06 Units by [facility] (VITAMIN 13:59: mouth. Medical D3) 10 mcg 39 Center (400 unit) Tab tablet aspirin 2021-0 Yes Q24H daily. [facility] (Aspir-81) 1-06 [facility] 81 MG EC 13:59: Medical tablet 39 Center bimatoprost 2020-[address] [facility] ([facility]) 1-06 0.01 % eye [facility] 0.01 % Drop 13:59: drops 1 Med ical ophthalmic 39 drop to Center solution both eyes at night calcium 202-0 Yes Q24H daily. [facility] carbonate-v 1-06 [facility] itamin D3 13:59: Medical (Calcium 39 Center 600 with Vitamin D3) 600 mg(1,500mg) -500 unit Cap cholecalcif 202-0 Yes 400U Take [address] imer 1-06 Units by [facility] (VITAMIN 13:59: mouth. Medical D3) 10 mcg 39 Center (400 unit) Tab tablet aspirin 2021-0 Yes Q24H daily. [facility] (Aspir-81) 1-06 [...] Center solution both eyes at night calcium Yes Q24H daily. [facility] carbonate-v 1-06 [facility] itamin D3 13:59: Medical (Calcium 39 Center 600 with Vitamin D3) 600 mg(1,500mg) -500 unit Cap Revlimid 10 2019-[address] mg capsule 2-08 [facility] 00:[facility]: Medical 00 Center lenalidomid 2019-04 Yes 10mg QD Take 10 mg Methodi e 2-[address] (Revlimid) 00:00: nightly. Hos malia 10 mg 00 l capsule Revlimid 10 2019-[address] [...] mg capsule 2-08 [facility] 00:[facility]: Medical 00 [place] Revlimid 10 2019- Yes [facility] capsule [facility]-08 [facility] 00:00: Medical 00 [place] Revlimid 10 2019- Yes [facility] mg capsule 2-08 [facility] 00:[facility]: Medical 00 [facility] Revlimid 10 2019- Yes [facility] capsule 2-08 [facility] 00:[facility]: Medical 00 Center Revlimid 10 2019- Yes [facility] mg capsule 2-08 [facility] 00:00: Medical 00 [place] Revlimid 10 2019- Yes [facility] mg capsule 2-08 [facility] 00:00: Medical 00 [place] Revlimid 10 2019-[address] mg capsule 2-08 [facility] 00:00: Medical 00 [place] Revlimid 10 2019-[address] mg capsule 2-08 [facility] 00:00: Medical 00 [place] lenalidomid 2019- Yes 10mg QD Take 10 mg Methodi e 2-[address] (Revlimid) 00:00: nightly. Hos [facility] 10 mg 00 l capsule lenalidomid 2019- Yes 10mg QD Take 10 mg Methodi e 2-[address] (Revlimid) 00:00: nightly. [facility] 10 mg 00 l capsule lenalidomid 2019- Yes 10mg QD Take 10 mg Methodi e 2-[address] (Revlimid) 00:00: nightly. [facility] 10 mg 00 l capsule lenalidomid 2019- Yes 10mg QD Take 10 mg Methodi e 2-[address] (Revlimid) 00:00: nightly. Hos [facility] 10 mg 00 l capsule lenalidomid 2020-1 Yes 10mg QD Take 10 mg Methodi e 2-[address] (Revlimid) 00:00: nightly. [facility] 10 mg 00 l capsule lenalidomid 2020-1 Yes 10mg QD Take 10 mg Methodi e 2-[address] (Revlimid) 00:00: nightly. [facility] 10 mg 00 l capsule lenalidomid 2020-1 Yes 10mg QD Take 10 mg Methodi e 2-[address] (Revlimid) 00:00: nightly. [facility] 10 mg 00 l capsule lenalidomid 2020-1 Yes 10mg QD Take 10 mg Methodi [...] 80 MG 00:00: daily. Medical tablet 00 [place] atorvastati 2019-04 Yes 80mg QD Take 80 mg Methodi n (LIPITOR) 0-[address] 80 MG 00:00: nightly. [facility]osp[facility] tablet [facility]04 Yes 80mg QD Take [address] [facility] n (LIPITOR) 0-03 by mouth [facility] 80 MG 00:00: daily. Medical tablet 00 [place] atorvastati 2019-04 Yes 80mg QD Take [address] [facility] n (LIPITOR) 0-03 by mouth Luke [facility] 80 MG 00:00: daily. Medical tablet 00 [place] atorvastati 2019-04 Yes 80mg QD Take [address] [facility] n (LIPITOR) 0-03 by mouth Luke [facility] 80 MG 00:00: daily. Medical tablet 00 [place] atorvasta 2019-04 Yes 80mg QD Take [address] [facility] n (LIPITOR) 0-03 by mouth Luke s 80 MG 00:00: daily. Medical tablet 00 [place] atorvasta 2019-04 Yes 80mg QD Take [address] [facility] n (LIPITOR) 0-03 by mouth Luke s 80 MG 00:00: daily. Medical tablet [facility] 2019-04 Yes 80mg QD Take [address] [facility] n (LIPITOR) 0-03 by mouth Luke s 80 MG 00:00: daily. Medical tablet [facility] 2019-04 Yes 80mg QD Take [address] [facility] n (LIPITOR) 0-03 by mouth Luke s 80 MG 00:00: daily. Medical tablet [facility] 2019-04 Yes 80mg QD Take [address] [facility] n (LIPITOR) 0-03 by mouth Luke s 80 MG 00:00: daily. Medical tablet [facility] 2019-04 Yes 80mg QD Take [address] [facility] n (LIPITOR) 0-03 by mouth Luke s 80 MG 00:00: daily. Medical tablet [facility] 2019-04 Yes 80mg QD Take [address] [facility] n (LIPITOR) 0-03 by mouth Luke s 80 MG 00:00: daily. Medical tablet [facility] 2019-04 Yes 80mg QD Take [address] n (LIPITOR) 0-03 by mouth Luke s 80 MG 00:00: daily. Medical tablet [facility] 2019-04 Yes 80mg QD Take [address] [facility] n (LIPITOR) 0-03 by mouth Luke s 80 MG 00:00: daily. Medical tablet [facility] 2019-04 Yes 80mg QD Take [address] [facility] n (LIPITOR) 0-03 by mouth Luke s 80 MG 00:00: daily. Medical tablet [facility] 2019-04 Yes 80mg QD Take 80 mg Methodi n (LIPITOR) 0-[address] 80 MG 00:00: nightly. Hospita tablet [facility] 2019-04 Yes 80mg QD Take 80 mg Methodi n (LIPITOR) 0-[address] 80 MG 00:00: nightly. Hospita tablet [facility] 2019-04 Yes 80mg QD Take 80 mg Methodi n (LIPITOR) 0-[address] 80 MG 00:00: nightly. Hospita tablet [facility] 2019-04 Yes 80mg QD Take 80 mg Methodi n (LIPITOR) 0-[address] 80 MG 00:00: nightly. Hospita tablet [facility] 2019-04 Yes 80mg QD Take 80 mg Methodi n (LIPITOR) 0-[address] 80 MG 00:00: nightly. Hospita tablet l atorvastati 2019-04 Yes 80mg QD Take 80 mg Methodi n (LIPITOR) 0-[address] 80 MG 00:00: nightly. Hospita tablet l atorvastati 2019-04 Yes 80mg QD Take 80 mg Methodi n (LIPITOR) 0-[address] 80 MG 00:00: nightly. Hospita tablet atorvastati 2019-04 Yes 80mg QD Take 80 mg Methodi n (LIPITOR) 0-[address] 80 MG 00:00: nightly. Hospita tablet l atorvastati 2019-04 Yes 80mg QD Take 80 mg Methodi n (LIPITOR) 0-[address] 80 MG 00:00: nightly. Hospita tablet l atorvastati 2019-04 Yes 80mg QD Take 80 mg Methodi n (LIPITOR) 0-[address] 80 MG 00:00: nightly. Hospita tablet atorvastati 2019-04 Yes 80mg QD Take 80 mg Methodi n (LIPITOR) 0-[address] 80 MG 00:00: nightly. Hospita tablet l atorvastati 2019-04 Yes 80mg QD Take 80 mg Methodi n (LIPITOR) 0-[address] 80 MG 00:00: nightly. Hospita tablet l atorvastati 2019-04 Yes 80mg QD Take [...] route. atorvastati atorvastati No 1 Q1D atorvastat [facility] n 80 mg n 80 [...] Immunizations Ordered Filled Immunization Date Status Comments [facility] e Immunization Name Name Influenza TIV (IM) 2022-02-02 Completed Univer [facility]ity of 00:00:00 [facility] Pfizer SARS-CoV-2 2022-02-02 Completed Univers ity of Bivalent Booster 00:00:00 [facility] ([facility] m[facility]/0.3 mL) Influenza TIV (IM) 2022-02-02 Completed Univer sity of 00:00:00 [facility] Pfizer SARS-CoV-2 2022-02-02 Completed Univers ity of Bivalent Booster 00:00:00 [facility] 12[facility]. ([facility] mcg/0.3 mL) Pfizer SARS-CoV-2 2021-11-23 Completed Univers ity of Vaccination 12+ 00:00:00 [facility] [place] [facility] Pfizer SARS-CoV-2 2021-11-23 Completed Univers ity of Vaccination 12+ 00:00:00 [facility] [place] [facility] Pfizer SARS-CoV-2 2020-11-27 Completed Univer sity of Vaccination (Purple 00:00:00 [facility]) [facility] [place] Pfizer SARS-CoV-2 2020-11-27 Completed Univer sity of Vaccination (Purple 00:00:00 [facility] Pfizer SARS-CoV-2 2020-11-27 Completed Univer sity of Vaccination (Purple 00:00:00 [facility]) [facility] Center Pfizer SARS-CoV-2 2020-11-27 Completed Univer sity of Vaccination (Purple 00:00:00 [facility]) Cancer Center Pfizer SARS-CoV-2 2020-11-27 Completed Univer sity of Vaccination (Purple 00:00:00 [facility]) Cancer Center Pfizer SARS-CoV-2 2020-11-27 Completed Univer sity of Vaccination (Purple 00:00:00 [facility]) [facility] [place] Pfizer SARS-CoV-2 2020-11-27 Completed Univer sity of Vaccination (Purple 00:00:00 [facility]) [facility] [place] Pfizer SARS-CoV-2 2020-11-27 Completed Univer sity of Vaccination (Purple 00:00:00 [facility]) [facility] [place] Pfizer SARS-CoV-2 2020-11-27 Completed Univer sity of Vaccination (Purple 00:00:00 [facility]) [facility] [place] Pfizer SARS-CoV-2 2020-11-27 Completed Univer sity of Vaccination (Purple 00:00:00 [facility]) [facility] [place] Pfizer SARS-CoV-2 2020-11-27 Completed Univer sity of Vaccination (Purple 00:00:00 [facility]) [facility] [place] Pfizer SARS-CoV-2 2020-11-27 Completed Univer sity of Vaccination (Purple 00:00:00 [facility]) [facility] [place] Pfizer SARS-CoV-2 2020-11-27 Completed Univer sity of Vaccination (Purple 00:00:00 [facility]) [facility] [place] Pfizer SARS-CoV-2 2020-11-27 Completed Univer sity of Vaccination (Purple 00:00:00 [facility] Pfizer SARS-CoV-2 2020-06-04 Completed Univer sity of Vaccination (Purple 00:00:00 [facility]) [facility] [place] Pfizer SARS-CoV-2 2020-06-04 Completed Univer sity of Vaccination (Purple 00:00:00 [facility]) [facility] [place] Pfizer SARS-CoV-2 2020-06-04 Completed Univer sity of Vaccination (Purple 00:00:00 [facility]) [facility] Pfizer SARS-CoV-2 2020-06-04 Completed Univer sity of Vaccination (Purple 00:00:00 [facility]) [facility] Center Pfizer SARS-CoV-2 2020-06-04 Completed Univer sity of Vaccination (Purple 00:00:00 [facility]) [facility] Center Pfizer SARS-CoV-2 2020-06-04 Completed Univer sity of Vaccination (Purple 00:00:00 [facility]) [facility] Pfizer SARS-CoV-2 2020-06-04 Completed Univer sity of Vaccination (Purple 00:00:00 [facility]) [facility] Center Pfizer SARS-CoV-2 2020-06-04 Completed Univer sity of Vaccination (Purple 00:00:00 [facility]) [facility] Center Pfizer SARS-CoV-2 2020-06-04 Completed Univer sity of Vaccination (Purple 00:00:00 [facility]) [facility] Center Pfizer SARS-CoV-2 2020-06-04 Completed Univer sity of Vaccination (Purple 00:00:00 [facility]) [facility] Center Pfizer SARS-CoV-2 2020-06-04 Completed Univer sity of Vaccination (Purple 00:00:00 [facility]) [facility] Pfizer SARS-CoV-2 2020-06-04 Completed Univer sity of Vaccination (Purple 00:00:00 [facility]) [facility] Pfizer SARS-CoV-2 2020-06-04 Completed Univer sity of Vaccination (Purple 00:00:00 [facility]) [facility] Pfizer SARS-CoV-2 2020-06-04 Completed Univer sity of Vaccination (Purple 00:00:00 [facility]) [facility] SARS-COV-2 COVID-19 2020-06-04 Completed Unive rsity of PFIZER VACCINE 00:00:00 [facility] SARS-COV-2 COVID-19 2020-06-04 Completed Unive rsity of PFIZER VACCINE 00:00:00 [facility] SARS-COV-2 COVID-19 2020-06-04 Completed Unive rsity of PFIZER VACCINE 00:00:00 [facility] SARS-COV-2 COVID-19 2020-06-04 Completed Unive rsity of PFIZER VACCINE 00:00:00 [facility] Pfizer SARS-CoV-2 2020-05-07 Completed Univer sity of Vaccination (Purple 00:00:00 [facility]) [facility] [place] Pfizer SARS-CoV-2 2020-05-07 Completed Univer sity of Vaccination (Purple 00:00:00 [facility]) [facility] [place] Pfizer SARS-CoV-2 2020-05-07 Completed Univers ity of Vaccination 12+ 00:00:00 [facility] [place] Pfizer SARS-CoV-2 2020-05-07 Completed Univer sity of Vaccination (Purple 00:00:00 [facility]) [facility] [place] Pfizer SARS-CoV-2 2020-05-07 Completed Univer sity of Vaccination (Purple 00:00:00 [facility]) [facility] [place] Pfizer SARS-CoV-2 2020-05-07 Completed Univer sity of Vaccination (Purple 00:00:00 [facility]) [facility] [place] Pfizer SARS-CoV-2 2020-05-07 Completed Univer sity of Vaccination (Purple 00:00:00 [facility]) [facility] [place] Pfizer SARS-CoV-2 2020-05-07 Completed Univer sity of Vaccination (Purple 00:00:00 [facility]) [facility] [place] Pfizer SARS-CoV-2 2020-05-07 Completed Univer sity of Vaccination (Purple 00:00:00 [facility]) [facility] [place] Pfizer SARS-CoV-2 2020-05-07 Completed Univer sity of Vaccination (Purple 00:00:00 [facility]) [facility] [place] Pfizer SARS-CoV-2 2020-05-07 Completed Univer sity of Vaccination (Purple 00:00:00 [facility]) [facility] [place] Pfizer SARS-CoV-2 2020-05-07 Completed Univer sity of Vaccination (Purple 00:00:00 [facility]) [facility] [place] Pfizer SARS-CoV-2 2020-05-07 Completed Univer sity of Vaccination (Purple 00:00:00 [facility]) [facility] [place] Pfizer SARS-CoV-2 2020-05-07 Completed Univer sity of Vaccination (Purple 00:00:00 [facility]) [facility] [place] Pfizer SARS-CoV-2 2020-05-07 Completed Univer sity of Vaccination (Purple 00:00:00 [facility]) [facility] [place] Pfizer SARS-CoV-2 2020-05-07 Completed [facility] Vaccination 12+ 00:00:00 [place] [facility] COVID-19 2020-05-07 Completed Unive rsity of PFIZER VACCINE 00:00:00 [facility] SARS-COV-2 COVID-19 2020-05-07 Completed Unive rsity of PFIZER VACCINE 00:00:00 [facility] SARS-COV-2 COVID-19 2020-05-07 Completed Unive rsity of PFIZER VACCINE 00:00:00 [facility] SARS-COV-2 COVID-19 2020-05-07 Completed Unive rsity of PFIZER VACCINE 00:00:00 [facility] DTaP / IPV 2019-03-01 Completed University of 00:00:00 [facility] Hib (PRP-OMP) 2019-03-01 Completed University of 00:00:00 [facility] Hepatitis B 2019-03-01 Completed University of 00:00:00 [facility] Pneumococcal 2019-03-01 Completed University o f Conjugate 13-Valent 00:00:00 [facility] DTaP / IPV 2019-03-01 Completed University of 00:00:00 [facility] Hib (PRP-OMP) 2019-03-01 Completed University of 00:00:00 [facility] Hepatitis B 2019-03-01 Completed University of 00:00:00 [facility] Pneumococcal 2019-03-01 Completed University o f Conjugate 13-Valent 00:00:00 [facility] DTaP / IPV 2019-03-01 Completed University of 00:00:00 [facility] Hib (PRP-OMP) 2019-03-01 Completed University of 00:00:00 [facility] Hepatitis B 2019-03-01 Completed University of 00:00:00 [facility] Pneumococcal 2019-03-01 Completed University o f Conjugate 13-Valent 00:00:00 [facility] DTaP / IPV 2019-03-01 Completed University of 00:00:00 [facility] Hib (PRP-OMP) 2019-03-01 Completed University of 00:00:00 [facility] Hepatitis B 2019-03-01 Completed University of 00:00:00 [facility] Pneumococcal 2019-03-01 Completed University o f Conjugate 13-Valent 00:00:00 [facility] DTaP / IPV 2019-03-01 Completed University of 00:00:00 [facility] Hib (PRP-OMP) 2019-03-01 Completed University of 00:00:00 [facility] Hepatitis B 2019-03-01 Completed University of 00:00:00 [facility] Pneumococcal 2019-03-01 Completed University o f Conjugate 13-Valent 00:00:00 [facility] DTaP / IPV 2019-03-01 Completed University of 00:00:00 [facility] Hib (PRP-OMP) 2019-03-01 Completed University of 00:00:00 [facility] Hepatitis B 2019-03-01 Completed University of 00:00:00 [facility] Pneumococcal 2019-03-01 Completed University o f Conjugate 13-Valent 00:00:00 [facility] DTaP / IPV 2019-03-01 Completed University of 00:00:00 [facility] Hib (PRP-OMP) 2019-03-01 Completed University of 00:00:00 [facility] Hepatitis B 2019-03-01 Completed University of 00:00:00 [facility] Pneumococcal 2019-03-01 Completed University o f Conjugate 13-Valent 00:00:00 [facility] DTaP / IPV 2019-03-01 Completed University of 00:00:00 [facility] Hib (PRP-OMP) 2019-03-01 Completed University of 00:00:00 [facility] Hepatitis B 2019-03-01 Completed University of 00:00:00 [facility] Pneumococcal 2019-03-01 Completed University o f Conjugate 13-Valent 00:00:00 [facility] DTaP / IPV 2019-03-01 Completed University of 00:00:00 [facility] Hib (PRP-OMP) 2019-03-01 Completed University of 00:00:00 [facility] Hepatitis B 2019-03-01 Completed University of 00:00:00 [facility] Pneumococcal 2019-03-01 Completed University o f Conjugate 13-Valent 00:00:00 [facility] DTaP / IPV 2019-03-01 Completed University of 00:00:00 [facility] Hib (PRP-OMP) 2019-03-01 Completed University of 00:00:00 [facility] Hepatitis B 2019-03-01 Completed University of 00:00:00 [facility] Pneumococcal 2019-03-01 Completed University o f Conjugate 13-Valent 00:00:00 [facility] DTaP / IPV 2019-03-01 Completed University of 00:00:00 [facility] Hib (PRP-OMP) 2019-03-01 Completed University of 00:00:00 [facility] Hepatitis B 2019-03-01 Completed University of 00:00:00 [facility] Pneumococcal 2019-03-01 Completed University o f Conjugate 13-Valent 00:00:00 [facility] DTaP / IPV 2019-03-01 Completed University of 00:00:00 [facility] Hib (PRP-OMP) 2019-03-01 Completed University of 00:00:00 [facility] Hepatitis B 2019-03-01 Completed University of 00:00:00 [facility] Pneumococcal 2019-03-01 Completed University o f Conjugate 13-Valent 00:00:00 [facility] DTaP / IPV 2019-03-01 Completed University of 00:00:00 [facility] Hib (PRP-OMP) 2019-03-01 Completed University of 00:00:00 [facility] Hepatitis B 2019-03-01 Completed University of 00:00:00 [facility] Pneumococcal 2019-03-01 Completed University o f Conjugate 13-Valent 00:00:00 [facility] DTaP / IPV 2019-03-01 Completed University of 00:00:00 [facility] Hib (PRP-OMP) 2019-03-01 Completed University of 00:00:00 [facility] Hepatitis B 2019-03-01 Completed University of 00:00:00 [facility] Pneumococcal 2019-03-01 Completed University o f Conjugate 13-Valent 00:00:00 [facility] influenza, influenza, 2019-01-08 Completed [facility], injectable, 00:00:00 [facility] quadrivalent quadrivalent DTaP / IPV 2018-12-06 Completed University of 00:00:00 [facility] Hib (PRP-OMP) 2018-12-06 Completed University of 00:00:00 [facility] Hepatitis B 2018-12-06 Completed University of 00:00:00 [facility] Pneumococcal 2018-12-06 Completed University o f Conjugate 13-Valent 00:00:00 [facility] DTaP / IPV 2018-12-06 Completed University of 00:00:00 [facility] Hib (PRP-OMP) 2018-12-06 Completed University of 00:00:00 [facility] Hepatitis B 2018-12-06 Completed University of 00:00:00 [facility] Pneumococcal 2018-12-06 Completed University o f Conjugate 13-Valent 00:00:00 [facility] DTaP / IPV 2018-12-06 Completed University of 00:00:00 [facility] Hib (PRP-OMP) 2018-12-06 Completed University of 00:00:00 [facility] Hepatitis B 2018-12-06 Completed University of 00:00:00 [facility] Pneumococcal 2018-12-06 Completed University o f Conjugate 13-Valent 00:00:00 [facility] DTaP / IPV 2018-12-06 Completed University of 00:00:00 [facility] Hib (PRP-OMP) 2018-12-06 Completed University of 00:00:00 [facility] Hepatitis B 2018-12-06 Completed University of 00:00:00 [facility] Pneumococcal 2018-12-06 Completed University o f Conjugate 13-Valent 00:00:00 [facility] DTaP / IPV 2018-12-06 Completed University of 00:00:00 [facility] Hib (PRP-OMP) 2018-12-06 Completed University of 00:00:00 [facility] Hepatitis B 2018-12-06 Completed University of 00:00:00 [facility] Pneumococcal 2018-12-06 Completed University o f Conjugate 13-Valent 00:00:00 [facility] DTaP / IPV 2018-12-06 Completed University of 00:00:00 [facility] Hib (PRP-OMP) 2018-12-06 Completed University of 00:00:00 [facility] Hepatitis B 2018-12-06 Completed University of 00:00:00 [facility] Pneumococcal 2018-12-06 Completed University o f Conjugate 13-Valent 00:00:00 [facility] DTaP / IPV 2018-12-06 Completed University of 00:00:00 [facility] Hib (PRP-OMP) 2018-12-06 Completed University of 00:00:00 [facility] Hepatitis B 2018-12-06 Completed University of 00:00:00 [facility] Pneumococcal 2018-12-06 Completed University o f Conjugate 13-Valent 00:00:00 [facility] DTaP / IPV 2018-12-06 Completed University of 00:00:00 [facility] Hib (PRP-OMP) 2018-12-06 Completed University of 00:00:00 [facility] Hepatitis B 2018-12-06 Completed University of 00:00:00 [facility] Pneumococcal 2018-12-06 Completed University o f Conjugate 13-Valent 00:00:00 [facility] DTaP / IPV 2018-12-06 Completed University of 00:00:00 [facility] Hib (PRP-OMP) 2018-12-06 Completed University of 00:00:00 [facility] Hepatitis B 2018-12-06 Completed University of 00:00:00 [facility] Pneumococcal 2018-12-06 Completed University o f Conjugate 13-Valent 00:00:00 [facility] DTaP / IPV 2018-12-06 Completed University of 00:00:00 [facility] Hib (PRP-OMP) 2018-12-06 Completed University of 00:00:00 [facility] Hepatitis B 2018-12-06 Completed University of 00:00:00 [facility] Pneumococcal 2018-12-06 Completed University o f Conjugate 13-Valent 00:00:00 [facility] DTaP / IPV 2018-12-06 Completed University of 00:00:00 [facility] Hib (PRP-OMP) 2018-12-06 Completed University of 00:00:00 [facility] Hepatitis B 2018-12-06 Completed University of 00:00:00 [facility] Pneumococcal 2018-12-06 Completed University o f Conjugate 13-Valent 00:00:00 [facility] DTaP / IPV 2018-12-06 Completed University of 00:00:00 [facility] Hib (PRP-OMP) 2018-12-06 Completed University of 00:00:00 [facility] Hepatitis B 2018-12-06 Completed University of 00:00:00 [facility] Pneumococcal 2018-12-06 Completed University o f Conjugate 13-Valent 00:00:00 [facility] DTaP / IPV 2018-12-06 Completed University of 00:00:00 [facility] Hib (PRP-OMP) 2018-12-06 Completed University of 00:00:00 [facility] Hepatitis B 2018-12-06 Completed University of 00:00:00 [facility] Pneumococcal 2018-12-06 Completed University o f Conjugate 13-Valent 00:00:00 [facility] DTaP / IPV 2018-12-06 Completed University of 00:00:00 [facility] Hib (PRP-OMP) 2018-12-06 Completed University of 00:00:00 [facility] Hepatitis B 2018-12-06 Completed University of 00:00:00 [facility] Pneumococcal 2018-12-06 Completed University o f Conjugate 13-Valent 00:00:00 [facility] Hib (PRP-OMP) 2018-09-04 Completed University of 00:00:00 [facility] Hepatitis B 2018-09-04 Completed University of 00:00:00 [facility] Pneumococcal 2018-09-04 Completed University o f Conjugate 13-Valent 00:00:00 [facility] DTaP / IPV 2018-09-04 Completed University of 00:00:00 [facility] Hib (PRP-OMP) 2018-09-04 Completed [facility] of 00:00:00 [facility] Hepatitis B 2018-09-04 Completed University of 00:00:00 [facility] Pneumococcal 2018-09-04 Completed University o f Conjugate 13-Valent 00:00:00 [facility] DTaP / IPV 2018-09-04 Completed University of 00:00:00 [facility] Hib (PRP-OMP) 2018-09-04 Completed University of 00:00:00 [facility] Hepatitis B 2018-09-04 Completed University of 00:00:00 [facility] Pneumococcal 2018-09-04 Completed University o f Conjugate 13-Valent 00:00:00 [facility] DTaP / IPV 2018-09-04 Completed University of 00:00:00 [facility] Hib (PRP-OMP) 2018-09-04 Completed University of 00:00:00 [facility] Hepatitis B 2018-09-04 Completed University of 00:00:00 [facility] Pneumococcal 2018-09-04 Completed University o f Conjugate 13-Valent 00:00:00 [facility] DTaP / IPV 2018-09-04 Completed University of 00:00:00 [facility] Hib (PRP-OMP) 2018-09-04 Completed University of 00:00:00 [facility] Hepatitis B 2018-09-04 Completed University of 00:00:00 [facility] Pneumococcal 2018-09-04 Completed University o f Conjugate 13-Valent 00:00:00 [facility] DTaP / IPV 2018-09-04 Completed University of 00:00:00 [facility] Hib (PRP-OMP) 2018-09-04 Completed University of 00:00:00 [facility] Hepatitis B 2018-09-04 Completed University of 00:00:00 [facility] Pneumococcal 2018-09-04 Completed University o f Conjugate 13-Valent 00:00:00 [facility] DTaP / IPV 2018-09-04 Completed University of 00:00:00 [facility] Hib (PRP-OMP) 2018-09-04 Completed University of 00:00:00 [facility] Hepatitis B 2018-09-04 Completed University of 00:00:00 [facility] Pneumococcal 2018-09-04 Completed University o f Conjugate 13-Valent 00:00:00 [facility] DTaP / IPV 2018-09-04 Completed University of 00:00:00 [facility] Hib (PRP-OMP) 2018-09-04 Completed University of 00:00:00 [facility] Hepatitis B 2018-09-04 Completed University of 00:00:00 [facility] Pneumococcal 2018-09-04 Completed University o f Conjugate 13-Valent 00:00:00 [facility] DTaP / IPV 2018-09-04 Completed University of 00:00:00 [facility] Hib (PRP-OMP) 2018-09-04 Completed University of 00:00:00 [facility] Hepatitis B 2018-09-04 Completed University of 00:00:00 [facility] Pneumococcal 2018-09-04 Completed University o f Conjugate 13-Valent 00:00:00 [facility] DTaP / IPV 2018-09-04 Completed University of 00:00:00 [facility] Hib (PRP-OMP) 2018-09-04 Completed University of 00:00:00 [facility] Hepatitis B 2018-09-04 Completed University of 00:00:00 [facility] Pneumococcal 2018-09-04 Completed University o f Conjugate 13-Valent 00:00:00 [facility] DTaP / IPV 2018-09-04 Completed University of 00:00:00 [facility] Hib (PRP-OMP) 2018-09-04 Completed University of 00:00:00 [facility] Hepatitis B 2018-09-04 Completed University of 00:00:00 [facility] Pneumococcal 2018-09-04 Completed University o f Conjugate 13-Valent 00:00:00 [facility] DTaP / IPV 2018-09-04 Completed University of 00:00:00 [facility] Hib (PRP-OMP) 2018-09-04 Completed University of 00:00:00 [facility] Hepatitis B 2018-09-04 Completed University of 00:00:00 [facility] Pneumococcal 2018-09-04 Completed University o f Conjugate 13-Valent 00:00:00 [facility] DTaP / IPV 2018-09-04 Completed [facility] 00:00:00 [place] [facility] (PRP-OMP) 2018-09-04 Completed [facility] of 00:00:00 [facility] Hepatitis B 2018-09-04 Completed University of 00:00:00 [facility] Pneumococcal 2018-09-04 Completed University o f Conjugate 13-Valent 00:00:00 [facility] DTaP / IPV 2018-09-04 Completed University of 00:00:00 [facility] DTaP / IPV 2018-09-04 Completed University of 00:00:00 [facility] Hib (PRP-OMP) 2018-09-04 Completed [facility] of 00:00:00 [facility] Hepatitis B 2018-09-04 Completed [facility] of 00:00:00 [facility] Pneumococcal 2018-09-04 Completed University o f Conjugate 13-Valent 00:00:00 [facility] Vital Signs Vital Name Observation Time Observation Value Comments Source Systolic blood 2022-07-14 19:16:00 139 mm[Hg] Univer sity of pressure [facility] Diastolic blood 2022-07-14 19:16:00 72 mm[Hg] Unive rsity of pressure [facility] Heart rate 2022-07-14 19:16:00 62 /min [facility] Respiratory rate 2022-07-14 19:14:00 [facility] 2022-07-14 19:14:00 154.9 cm [facility] Body weight 2022-07-14 19:14:00 59.693 kg [facility] BMI 2022-07-14 19:14:00 24.87 kg/m2 [facility] Oxygen saturation in 2022-07-14 19:14:00 96 /min [facility] Arterial blood by [facility] Pulse oximetry [place] HEIGHT 2020-03-25 11:00:00 160 cm WEIGHT 2020-03-25 11:00:00 66.588 kg Height 2019-08-21 00:00:00 62 [in_i] [facility] BMI (Body Mass 2019-08-21 00:00:00 25.4 kg/m2 [facility] Body Weight 2019-08-21 00:00:00 139 [lb_av] [facility] Systolic blood 2022-08-12 14:04:23 139 mm[Hg] [facility]ity of pressure [facility] Diastolic blood 2022-08-12 14:04:23 54 mm[Hg] [facility]ive [facility]ity of pressure [facility] Heart rate 2022-08-12 14:04:23 55 /min [facility] Body temperature 2022-08-12 14:04:23 36.61 [place] Univ ers[facility] Respiratory rate 2022-08-12 14:04:23 16 /min [facility] Oxygen saturation in 2022-08-12 14:04:23 98 /min University of Arterial blood by Dat [facility] Pulse oximetry [facility] Body weight 2022-08-12 14:01:00 59.6 kg [facility] BMI 2022-08-12 14:01:00 24.97 kg/m2 [facility] Systolic blood 2022-01-28 15:01:01 123 mm[Hg] [facility]iver [facility]ity of pressure [facility] Diastolic blood 2022-01-28 15:01:01 52 mm[Hg] Unive [...] /min [facility] Arterial blood by [facility] Pulse oximetry [facility] Systolic blood 2021-08-06 14:59:05 127 mm[Hg] [facility]iver [facility]ity of pressure [facility] Diastolic blood 2021-08-06 14:59:05 58 mm[Hg] Unive [facility]ity of pressure [place] [facility] Heart rate 2021-08-06 14:59:05 47 /min [facility] [place] [facility] Body temperature 2021-08-06 14:59:05 36.72 [place] [facility] [place] [facility] Respiratory rate 2021-08-06 14:59:05 18 /min Univ ersity [facility] Body weight 2021-08-06 14:59:05 64.3 kg [facility] [place] [facility] BMI 2021-08-06 14:59:05 26.94 kg/m2 [facility] on [facility] Oxygen saturation in 2021-08-06 14:59:05 100 /min [facility] Arterial blood by Dat iqbal Pulse oximetry [facility] Procedures Procedure Date / Time Performing Clinician Source Performed MRI WHOLE BODY - BONE 2022-08-09 16:48:14 Fouzia Das U [facility] MARROW [facility] COMPLETE BLOOD COUNT W/ 2022-08-09 14:08:00 Fouzia Das [facility] DIFFERENTIAL [facility] COMPREHENSIVE METABOLIC 2022-08-09 14:08:00 Fouzia Das [facility] MAGNESIUM LEVEL 2022-08-09 14:08:00 Fouzia Das [facility] PHOSPHORUS LEVEL 2022-08-09 14:08:00 Fouzia Das [facility] URIC ACID 2022-08-09 14:08:00 Fouzia Das [facility] IMMUNOGLOBULIN A SERUM 2022-08-09 14:08:00 Fouzia Das [facility] IMMUNOGLOBULIN G SERUM 2022-08-09 14:08:00 Fouzia Das [facility] IMMUNOGLOBULIN M SERUM 2022-08-09 14:08:00 Fouzia Das [facility] FREE KAPPA LIGHT CHAIN 2022-08-09 14:08:00 Fouzia Das [facility] FREE LAMBDA LIGHT CHAIN 2022-08-09 14:08:00 Fouzia Das [facility] PROTEIN ELECTROPHORESIS, 2022-08-09 14:08:00 Fouzia Das [facility] SERUM [facility] IMMUNOFIXATION 2022-08-09 14:08:00 Fouzia Das [facility] ELECTROPHORESIS [facility] BETA 2 MICROGLOBULIN 2022-08-09 14:08:00 [facility] LACTATE DEHYDROGENASE 2022-08-09 14:08:00 [facility]zia [facility] Results CBC 2022-08-09 14:08:00 Fouzia Das [facility] MANUAL DIFFERENTIAL 2022-08-09 14:08:00 Fouzia Das [facility] GLUCOSE LEVEL 2022-08-09 14:08:00 Fouzia Das [facility] BLOOD UREA NITROGEN 2022-08-09 14:08:00 Fouzia [facility] ELECTROLYTE PANEL 2022-08-09 14:08:00 [facility]zia [facility] SERUM CREATININE 2022-08-09 14:08:00 Fouzia Das [facility] .GLOMERULAR FILTRATION 2022-08-09 14:08:00 Fouzia Das [facility] Center CALCIUM LEVEL TOTAL 2022-08-09 14:08:[address] [facility] ALBUMIN LEVEL 2022-08-09 14:08:00 Fouzia Das [facility] ALKALINE PHOSPHATASE 2022-08-09 14:08:00 Fouzia Das [facility] ALANINE AMINOTRANSFERASE 2022-08-09 14:08:00 Fouzia Das [facility] ASPARTATE AMINOTRANSFERASE 2022-08-09 14:08:00 Analisa Das [facility] TOTAL PROTEIN 2022-08-09 14:08:00 Fouzia Das [facility] FRACTIONATED BILIRUBIN 2022-08-09 14:08:00 Fouzia Das [facility] FREE KAPPA/FREE LAMBDA 2022-08-09 14:08:00 Fouzia Das [facility] RATIO [facility] .DR. MEDINA PROT ELEC 2022-08-09 14:08:00 Fouzia Das [facility] PATH REVIEW [facility] .DR. MEDINA EDMAR PATH 2022-08-09 14:08:00 Fouzia Das [facility] REVIEW [facility] PROTEIN ELECTROPHORESIS 2022-08-09 10:00:00 Fouzia Das [facility] URINE [facility] IMMUNOFIXATION 2022-08-09 10:00:00 Fouzia Das [facility] ELECTROPHORESIS URINE [facility] URINE TOTAL PROTEIN 2022-08-09 10:00:[address] [facility] .TOTAL VOLUME 2022-08-09 10:00:00 Fouzia Das [facility] .DR. KERI Sosa PROT ELEC 2022-08-09 10:00:00 Fouzia Das [facility] PATH REVIEW [facility] .DR. SAAVEDRA UISNEHAL PATH 2022-08-09 10:00:00 [facility] INSURANCE CORRESPONDENCE 2022-08-04 05:01:00 Doctor Unassigned, [facility] Onyx [facility] HB ECG ROUTINE & RHYTHM 2022-07-14 19:07:47 Saravanan Montes [facility] COMPLETE BLOOD COUNT W/ 2022-01-26 14:30:00 Fouzia Das [facility] DIFFERENTIAL [facility] COMPREHENSIVE METABOLIC 2022-01-26 14:30:00 Fouzia Das [facility] PANEL [facility] MAGNESIUM LEVEL 2022-01-26 14:30:00 Fouzia Das [facility] PHOSPHORUS LEVEL 2022-01-26 14:30:00 Fouzia Das [facility] URIC ACID 2022-01-26 14:30:00 Fouzia Das [facility] IMMUNOGLOBULIN A SERUM 2022-01-26 14:30:00 Fouzia Das [facility] IMMUNOGLOBULIN G SERUM 2022-01-26 14:30:00 Fouzia Das [facility] IMMUNOGLOBULIN M SERUM 2022-01-26 14:30:00 Fouzia Das [facility] FREE KAPPA LIGHT CHAIN 2022-01-26 14:30:00 Fouzia Das [facility] FREE LAMBDA LIGHT CHAIN 2022-01-26 14:30:00 Fuozia Das [facility] PROTEIN ELECTROPHORESIS, 2022-01-26 14:30:00 Fouzia Das [facility] SERUM [facility] IMMUNOFIXATION 2022-01-26 14:30:00 [facility] BETA 2 MICROGLOBULIN 2022-01-26 14:30:00 Fouzia Das [facility] LACTATE DEHYDROGENASE 2022-01-26 14:30:00 Fouzia Das [facility] Results CBC 2022-01-26 14:30:00 Fouzia Das [facility] DIFFERENTIAL 2022-01-26 14:30:00 Fouzia Das [facility] GLUCOSE LEVEL 2022-01-26 14:30:00 Fouzia Das [facility] BLOOD UREA NITROGEN 2022-01-26 14:30:00 Fouzia Das [facility] ELECTROLYTE PANEL 2022-01-26 14:30:00 [facility]zia [facility] SERUM CREATININE 2022-01-26 14:30:00 Fouzia Das [facility] .GLOMERULAR FILTRATION 2022-01-26 14:30:00 Fouzia Das [facility] CALCIUM LEVEL TOTAL 2022-01-26 14:30:00 Fouzia Das [facility] ALBUMIN LEVEL 2022-01-26 14:30:00 Fouzia Das [facility] ALKALINE PHOSPHATASE 2022-01-26 14:30:00 Fouzia Das [facility] ALANINE AMINOTRANSFERASE 2022-01-26 14:30:00 Fouzia Das [facility] ASPARTATE AMINOTRANSFERASE 2022-01-26 14:30:00 Analisa Das [facility] TOTAL PROTEIN 2022-01-26 14:30:00 Fouzia Das [facility] FRACTIONATED BILIRUBIN 2022-01-26 14:30:00 Fouzia Das [facility] FREE KAPPA/FREE LAMBDA 2022-01-26 14:30:00 Fouzia Das [facility] RATIO [facility] .DR. SAAVEDRA PROT ELEC PATH 2022-01-26 14:30:00 Fouzia Das [facility] REVIEW [facility] .DR. SAAVEDRA EDMAR PATH REVIEW 2022-01-26 14:30:00 Analisa Das [facility] PROTEIN ELECTROPHORESIS 2022-01-26 11:30:00 Fouzia Das [facility] URINE [facility] IMMUNOFIXATION 2022-01-26 11:30:00 Fouzia Das [facility] ELECTROPHORESIS URINE [facility] URINE TOTAL PROTEIN 2022-01-26 11:30:00 Fouzia Das [facility] .TOTAL VOLUME 2022-01-26 11:30:00 Fouzia Das [facility] .DR. SAAVEDRA U PROT ELEC 2022-01-26 11:30:00 Fouzia Das [facility] PATH REVIEW [facility] .DR. SAAVEDRA UIFE PATH 2022-01-26 11:30:00 [facility] WHOLE [facility]ODY - BONE 2021-08-06 01:04:00 [facility] COMPLETE BLOOD COUNT W/ 2021-08-03 15:34:00 Fouzia Das [facility] DIFFERENTIAL [facility] COMPREHENSIVE METABOLIC 2021-08-03 15:34:00 Fouzia Das [facility] PANEL [facility] MAGNESIUM LEVEL 2021-08-03 15:34:00 Fouzia Das [facility] PHOSPHORUS LEVEL 2021-08-03 15:34:00 Fouzia Das [facility] URIC ACID 2021-08-03 15:34:00 Fouzia Das [facility] IMMUNOGLOBULIN A SERUM 2021-08-03 15:34:00 Fouzia Das [facility] IMMUNOGLOBULIN G SERUM 2021-08-03 15:34:00 Fouzia Das [facility] IMMUNOGLOBULIN M SERUM 2021-08-03 15:34:00 Fouzia Das [facility] FREE KAPPA LIGHT CHAIN 2021-08-03 15:34:00 Fouzia Das [facility] FREE LAMBDA LIGHT CHAIN 2021-08-03 15:34:00 Fouzia Das [facility] PROTEIN ELECTROPHORESIS, 2021-08-03 15:34:00 Fouzia Das [facility] SERUM [facility] IMMUNOFIXATION 2021-08-03 15:34:00 Fouzia Das [facility] ELECTROPHORESIS [facility] BETA 2 MICROGLOBULIN 2021-08-03 15:34:00 Fouzia Das [facility] LACTATE DEHYDROGENASE 2021-08-03 15:34:00 Fouzia Das [facility] Results CBC 2021-08-03 15:34:00 Fouzia Das [facility] MANUAL DIFFERENTIAL 2021-08-03 15:34:00 Fouzia Das [facility] GLUCOSE LEVEL 2021-08-03 15:34:00 Fouzia Das [facility] BLOOD UREA NITROGEN 2021-08-03 15:34:00 Fouzia Das [facility] ELECTROLYTE PANEL 2021-08-03 15:34:00 [facility]ouzia Das [facility] SERUM CREATININE 2021-08-03 15:34:00 Fouzia Das [facility] .GLOMERULAR FILTRATION 2021-08-03 15:34:00 Fouzia Das [facility] CALCIUM LEVEL TOTAL 2021-08-03 15:34:[address] [facility] ALBUMIN LEVEL 2021-08-03 15:34:00 Fouzia Das [facility] ALKALINE PHOSPHATASE 2021-08-03 15:34:00 Fouzia Das [facility] ALANINE AMINOTRANSFERASE 2021-08-03 15:34:00 Fouzia Das [facility] ASPARTATE AMINOTRANSFERASE 2021-08-03 15:34:00 Analisa Das [facility] TOTAL PROTEIN 2021-08-03 15:34:00 Fouzia Das [facility] FRACTIONATED BILIRUBIN 2021-08-03 15:34:00 Fouzia Das [facility] FREE KAPPA/FREE LAMBDA 2021-08-03 15:34:00 Fouzia Das [facility] RATIO [facility] .DR. SAAVEDRA PROT ELEC PATH 2021-08-03 15:34:00 Fouzia Das [facility] REVIEW [facility] .DR. KERI HYATT PATH REVIEW 2021-08-03 15:34:00 Analisa Das [facility] URINE TOTAL PROTEIN 2021-08-03 12:35:[address] [facility] .TOTAL VOLUME 2021-08-03 12:35:00 Fouzia Das [facility] .DR. SAAVEDRA U PROT ELEC 2021-08-03 12:35:00 Fouzia Das [facility] PATH REVIEW [facility] .DR. SAAVEDRA UIFE PATH 2021-08-03 12:35:00 Fouzia Das Un iversity [facility] REVIEW [facility] PROTEIN ELECTROPHORESIS 2021-08-03 12:35:00 Fouzia Das [facility] URINE [facility] IMMUNOFIXATION 2021-08-03 12:35:00 Fozuia Das [facility] ELECTROPHORESIS URINE [facility] COMPLETE BLOOD COUNT W/ 2021-02-03 15:37:00 Fouzia Das [facility] DIFFERENTIAL [facility] COMPREHENSIVE METABOLIC 2021-02-03 15:37:00 Fouzia Das [facility] PANEL [facility] MAGNESIUM LEVEL 2021-02-03 15:37:00 Fouzia Das [facility] PHOSPHORUS LEVEL 2021-02-03 15:37:00 Fouzia Das [facility] URIC ACID 2021-02-03 15:37:00 Fouzia Das [facility] IMMUNOGLOBULIN A SERUM 2021-02-03 15:37:00 Fouzia Das [facility] IMMUNOGLOBULIN G SERUM 2021-02-03 15:37:00 Fouzia Das [facility] IMMUNOGLOBULIN M SERUM 2021-02-03 15:37:00 Fouzia Das [facility] FREE KAPPA LIGHT CHAIN 2021-02-03 15:37:00 Fouzia Das [facility] FREE LAMBDA LIGHT CHAIN 2021-02-03 15:37:00 Fouzia Das [facility] PROTEIN ELECTROPHORESIS, 2021-02-03 15:37:00 Fouzia Das [facility] SERUM [facility] IMMUNOFIXATION 2021-02-03 15:37:00 Fouzia Das [facility] ELECTROPHORESIS [facility] BETA 2 MICROGLOBULIN 2021-02-03 15:37:00 Fouzia Das [facility] LACTATE DEHYDROGENASE 2021-02-03 15:37:00 Fouzia Das [facility] Results CBC 2021-02-03 15:37:00 Fouzia Das [facility] MANUAL DIFFERENTIAL 2021-02-03 15:37:00 Fouzia Das [facility] GLUCOSE LEVEL 2021-02-03 15:37:00 Fouzia Das [facility] BLOOD UREA NITROGEN 2021-02-03 15:37:00 Fouzia Das [facility] ELECTROLYTE PANEL 2021-02-03 15:37:00 Fouzia Das [facility] SERUM CREATININE 2021-02-03 15:37:00 Fouzia Das [facility] .GLOMERULAR FILTRATION 2021-02-03 15:37:00 Fouzia Das [facility] RATE [facility] CALCIUM LEVEL TOTAL 2021-02-03 15:37:00 Fouzia Das [facility] ALBUMIN LEVEL 2021-02-03 15:37:00 Fouzia Das [facility] ALKALINE PHOSPHATASE 2021-02-03 15:37:00 Fouzia Das [facility] ALANINE AMINOTRANSFERASE 2021-02-03 15:37:00 Fouzia Das [facility] ASPARTATE AMINOTRANSFERASE 2021-02-03 15:37:00 Analisa Das [facility] TOTAL PROTEIN 2021-02-03 15:37:00 Fouzia Das [facility] FRACTIONATED BILIRUBIN 2021-02-03 15:37:00 Fouzia Das [facility] FREE KAPPA/FREE LAMBDA 2021-02-03 15:37:00 Fouzia Das [facility] RATIO [facility] .DR. MEDINA PROT ELEC 2021-02-03 15:37:00 Fouzia Das [facility] .DR. MEDINA EDMAR PATH 2021-02-03 15:37:00 Fouzia Das [facility] REVIEW [facility] PROTEIN ELECTROPHORESIS 2021-02-03 11:00:00 Fouzia Das [facility] URINE [facility] IMMUNOFIXATION 2021-02-03 11:00:00 Fouzia Das [facility] ELECTROPHORESIS URINE [facility] URINE TOTAL PROTEIN 2021-02-03 11:00:[address] [facility] .TOTAL VOLUME 2021-02-03 11:00:00 Fouzia Das [facility] .DR. CHEUNG U PROT ELEC 2021-02-03 11:00:00 Fouzia Das [facility] REVIEW [facility] .DR SALGUERO UIFE PATH 2021-02-03 11:00:00 [facility]ouzia [facility] Care Planned Activity Planned [...] VACCINES (4 - Tdap)] Future Scheduled Test 2022-12-[address] [facility] 00:00:00 (Season Ended) [code Medical Center = INFLUENZA VACCINE (Season Ended)] Future Scheduled Test 2022-12-[address] [facility] 00:00:00 (Season Ended) [code Medical Center = INFLUENZA VACCINE (Season Ended)] Future Scheduled Test 2022-12-09 INFL[address]ZA VACC[address] [facility] 00:00:00 (Season Ended) [code Medical Center = INFLUENZA VACCINE (Season Ended)] Future Scheduled Test 2022-12-09 [address]FL[address]ZA VACC[address] [facility] 00:00:00 (Season Ended) [code Medical Center = INFLUENZA VACCINE (Season Ended)] Future Scheduled Test 2022-08-04 Hepatitis C screening [facility] 09:04:23 (procedure) [code = [id number]] Future Scheduled Test 2022-08-04 SHINGLES VACCINES (1 [facility] 09:04:23 of 2) [code = SHINGLES VACCINES (1 of 2)] Future Scheduled Test 2022-08-04 BREAST CANCER [facility] 09:04:23 SCREENING [code = BREAST CANCER SCREENING] Future Scheduled Test 2022-08-04 COLONOSCOPY SCREENING [facility] 09:04:23 [code = COLONOSCOPY SCREENING] Future Scheduled Test 2022-08-04 65+ PNEUMOCOCCAL Me [facility] 09:04:23 VACCINE (2 - PPSV23 if available, else PCV20) [code = 65+ PNEUMOCOCCAL VACCINE (2 - PPSV23 if available, else PCV20)] Future Scheduled Test 2022-08-04 COVID-19 VACCINE (3 - [facility] 09:04:23 Pfizer risk series) [code = COVID-19 VACCINE (3 - Pfizer risk series)] Future Scheduled Test 2022-08-04 INFLUENZA VACCINE [facility] 09:04:23 [code = INFLUENZA VACCINE] Future Scheduled Test 2022-08-04 Hepatitis C screening [facility] 09:04:23 (procedure) [code = [id number]] Future Scheduled Test 2022-08-04 SHINGLES VACCINES (1 [facility] 09:04:23 of 2) [code = SHINGLES VACCINES (1 of 2)] Future Scheduled Test 2022-08-04 BREAST CANCER [facility] 09:04:23 SCREENING [code = BREAST CANCER SCREENING] Future Scheduled Test 2022-08-04 COLONOSCOPY SCREENING [facility] 09:04:23 [code = COLONOSCOPY SCREENING] Future Scheduled Test 2022-08-04 65+ PNEUMOCOCCAL [facility] 09:04:23 VACCINE (2 - PPSV23 if available, else PCV20) [code = 65+ PNEUMOCOCCAL VACCINE (2 - PPSV23 if available, else PCV20)] Future Scheduled Test 2022-08-04 COVID-19 VACCINE (3 - [facility] 09:04:23 Pfizer risk series) [code = COVID-19 VACCINE (3 - Pfizer risk series)] Future Scheduled Test 2022-08-04 INFLUENZA VACCINE [facility] 09:04:23 [code = INFLUENZA VACCINE] Future Scheduled Test 2022-07-25 COVID-19 Vaccination [place] [id number] (4 - Booster for Dat blackman Pfizer series) [code Cancer Center = COVID-19 Vaccination (4 - Booster for Pfizer series)] Future Scheduled Test 2022-07-15 Hepatitis C screening [facility] 03:27:17 (procedure) [code = [id number]] Future Scheduled Test 2022-07-15 SHINGLES VACCINES (1 [facility] 03:27:17 of 2) [code = SHINGLES VACCINES (1 of 2)] Future Scheduled Test 2022-07-15 BREAST CANCER [facility] 03:27:17 SCREENING [code = BREAST CANCER SCREENING] Future Scheduled Test 2022-07-15 COLONOSCOPY SCREENING [facility] 03:27:17 [code = COLONOSCOPY SCREENING] Future Scheduled Test 2022-07-15 65+ PNEUMOCOCCAL [facility] 03:27:17 VACCINE (2 - PPSV23 if available, else PCV20) [code = 65+ PNEUMOCOCCAL VACCINE (2 - PPSV23 if available, else PCV20)] Future Scheduled Test 2022-07-15 COVID-19 VACCINE (3 - [facility] 03:27:17 Pfizer risk series) [code = COVID-19 VACCINE (3 - Pfizer risk series)] Future Scheduled Test 2022-07-15 INFLUENZA VACCINE [facility] 03:27:17 [code = INFLUENZA VACCINE] Future Scheduled Test 2022-07-15 Hepatitis C screening [facility] 03:27:17 (procedure) [code = [id number]] Future Scheduled Test 2022-07-15 SHINGLES VACCINES (1 [facility] 03:27:17 of 2) [code = SHINGLES VACCINES (1 of 2)] Future Scheduled Test 2022-07-15 BREAST CANCER [facility] 03:27:17 SCREENING [code = BREAST CANCER SCREENING] Future Scheduled Test 2022-07-15 COLONOSCOPY SCREENING [facility] 03:27:17 [code = COLONOSCOPY SCREENING] Future Scheduled Test 2022-07-15 65+ PNEUMOCOCCAL [facility] 03:27:17 VACCINE (2 - PPSV23 if available, else PCV20) [code = 65+ PNEUMOCOCCAL VACCINE (2 - PPSV23 if available, else PCV20)] Future Scheduled Test 2022-07-15 COVID-19 VACCINE (3 - [facility] 03:27:17 Pfizer risk series) [code = COVID-19 VACCINE (3 - Pfizer risk series)] Future Scheduled Test 2022-07-15 INFLUENZA VACCINE [facility] 03:27:17 [code = INFLUENZA VACCINE] Future Scheduled Test 2022-05-06 Hepatitis C screening [facility] 13:58:59 (procedure) [code = [id number]] Future Scheduled Test 2022-05-06 SHINGLES VACCINES (1 [facility] 13:58:59 of 2) [code = SHINGLES VACCINES (1 of 2)] Future Scheduled Test 2022-05-06 [facility] 13:58:59 SCREENING [code = BREAST CANCER SCREENING] Future Scheduled Test 2022-05-06 COLONOSCOPY SCREENING [facility] 13:58:59 [code = COLONOSCOPY SCREENING] Future Scheduled Test 2022-05-06 65+ PNEUMOCOCCAL [facility] 13:58:59 VACCINE (2 - PPSV23 if available, else PCV20) [code = 65+ PNEUMOCOCCAL VACCINE (2 - PPSV23 if available, else PCV20)] Future Scheduled Test 2022-05-06 COVID-19 VACCINE (3 - [facility] 13:58:59 Pfizer risk series) [code = COVID-19 VACCINE (3 - Pfizer risk series)] Future Scheduled Test 2022-05-06 INFLUENZA VACCINE [facility] 13:58:59 [code = INFLUENZA VACCINE] Future Scheduled Test 2022-05-06 Hepatitis C screening [facility] 13:58:59 (procedure) [code = [id number]] Future Scheduled Test 2022-05-06 SHINGLES VACCINES (1 [facility] 13:58:59 of 2) [code = SHINGLES VACCINES (1 of 2)] Future Scheduled Test 2022-05-06 BREAST CANCER [facility] 13:58:59 SCREENING [code = BREAST CANCER SCREENING] Future Scheduled Test 2022-05-06 COLONOSCOPY SCREENING [facility] 13:58:59 [code = COLONOSCOPY SCREENING] Future Scheduled Test 2022-05-06 65+ PNEUMOCOCCAL [facility] 13:58:59 VACCINE (2 - PPSV23 if available, else PCV20) [code = 65+ PNEUMOCOCCAL VACCINE (2 - PPSV23 if available, else PCV20)] Future Scheduled Test 2022-05-06 COVID-19 VACCINE (3 - [facility] 13:58:59 Pfizer risk series) [code = COVID-19 VACCINE (3 - Pfizer risk series)] Future Scheduled Test 2022-05-06 INFLUENZA VACCINE [facility] 13:58:59 [code = INFLUENZA VACCINE] Future Scheduled Test 2022-05-06 Hepatitis C screening [facility] 13:58:59 (procedure) [code = [id number]] Future Scheduled Test 2022-05-06 SHINGLES VACCINES (1 [facility] 13:58:59 of 2) [code = SHINGLES VACCINES (1 of 2)] Future Scheduled Test 2022-05-06 BREAST CANCER [facility] 13:58:59 SCREENING [code = BREAST CANCER SCREENING] Future Scheduled Test 2022-05-06 COLONOSCOPY SCREENING [facility] 13:58:59 [code = COLONOSCOPY SCREENING] Future Scheduled Test 2022-05-06 65+ PNEUMOCOCCAL [facility] 13:58:59 VACCINE (2 - PPSV23 if available, else PCV20) [code = 65+ PNEUMOCOCCAL VACCINE (2 - PPSV23 if available, else PCV20)] Future Scheduled Test 2022-05-06 COVID-19 VACCINE (3 - [facility] 13:58:59 Pfizer risk series) [code = COVID-19 VACCINE (3 - Pfizer risk series)] Future Scheduled Test 2022-05-06 INFLUENZA VACCINE [facility] 13:58:59 [code = INFLUENZA VACCINE] Future Scheduled Test 2022-05-06 Hepatitis C screening [facility] 13:58:59 (procedure) [code = [id number]] Future Scheduled Test 2022-05-06 SHINGLES VACCINES (1 [facility] 13:58:59 of 2) [code = SHINGLES VACCINES (1 of 2)] Future Scheduled Test 2022-05-06 BREAST CANCER [facility] 13:58:59 SCREENING [code = BREAST CANCER SCREENING] Future Scheduled Test 2022-05-06 COLONOSCOPY SCREENING [facility] 13:58:59 [code = COLONOSCOPY SCREENING] Future Scheduled Test 2022-05-06 65+ PNEUMOCOCCAL [facility] 13:58:59 VACCINE (2 - PPSV23 if available, else PCV20) [code = 65+ PNEUMOCOCCAL VACCINE (2 - PPSV23 if available, else PCV20)] Future Scheduled Test 2022-05-06 COVID-19 VACCINE (3 - [facility] 13:58:59 Pfizer risk series) [code = COVID-19 VACCINE (3 - Pfizer risk series)] Future Scheduled Test 2022-05-06 INFLUENZA VACCINE [facility] 13:58:59 [code = INFLUENZA VACCINE] Future Scheduled Test 2022-05-06 Hepatitis C screening [facility] 13:58:59 (procedure) [code = [id number]] Future Scheduled Test 2022-05-06 SHINGLES VACCINES (1 [facility] 13:58:59 of 2) [code = SHINGLES VACCINES (1 of 2)] Future Scheduled Test 2022-05-06 [facility]ER [facility] [facility] 13:58:59 SCREENING [code = BREAST CANCER SCREENING] Future Scheduled Test 2022-05-06 COLONOSCOPY SCREENING [facility] 13:58:59 [code = COLONOSCOPY SCREENING] Future Scheduled Test 2022-05-06 65+ PNEUMOCOCCAL [facility] 13:58:59 VACCINE (2 - PPSV23 if available, else PCV20) [code = 65+ PNEUMOCOCCAL VACCINE (2 - PPSV23 if available, else PCV20)] Future Scheduled Test 2022-05-06 COVID-19 VACCINE (3 - [facility] 13:58:59 Pfizer risk series) [code = COVID-19 VACCINE (3 - Pfizer risk series)] Future Scheduled Test 2022-05-06 INFLUENZA VACCINE [facility] 13:58:59 [code = INFLUENZA VACCINE] Future Scheduled Test 2022-05-05 Hepatitis C screening [facility] 08:50:03 (procedure) [code = [id number]] Future Scheduled Test 2022-05-05 SHINGLES VACCINES (1 [facility] 08:50:03 of 2) [code = SHINGLES VACCINES (1 of 2)] Future Scheduled Test 2022-05-05 BREAST CANCER [facility] 08:50:03 SCREENING [code = BREAST CANCER SCREENING] Future Scheduled Test 2022-05-05 COLONOSCOPY SCREENING [facility] 08:50:03 [code = COLONOSCOPY SCREENING] Future Scheduled Test 2022-05-05 65+ PNEUMOCOCCAL [facility] 08:50:03 VACCINE (2 - PPSV23 if available, else PCV20) [code = 65+ PNEUMOCOCCAL VACCINE (2 - PPSV23 if available, else PCV20)] Future Scheduled Test 2022-05-05 COVID-19 VACCINE (3 - [facility] 08:50:03 Pfizer risk series) [code = COVID-19 VACCINE (3 - Pfizer risk series)] Future Scheduled Test 2022-05-05 INFLUENZA VACCINE [facility] 08:50:03 [code = INFLUENZA VACCINE] Future Scheduled Test 2022-04-21 COVID-19 [facility] 12:40:06 (4 - Booster for Dat blackman Pfizer series) [code Cancer Center = COVID-19 Vaccination (4 - Booster for Pfizer series)] Future Scheduled Test 2022-04-21 COVID-19 Vaccination [facility] 12:40:06 (4 - Booster for Dat blackman Pfizer series) [code Cancer Center = COVID-19 Vaccination (4 - Booster for Pfizer series)] Future Scheduled Test 2022-04-21 COVID-19 Vaccination [facility] 12:40:06 (4 - Booster for Dat MD An derson Pfizer series) [code Cancer Center = COVID-19 Vaccination (4 - Booster for Pfizer series)] Future Scheduled Test 2022-04-21 COVID-19 Vaccination [facility] 12:40:06 (4 - Booster for [place] An derson Pfizer series) [code Cancer Center = COVID-19 Vaccination (4 - Booster for Pfizer series)] Future Scheduled Test 2022-04-21 COVID-19 Vaccination [facility] 12:40:06 (4 - Booster for Dat MD An derson Pfizer series) [code Cancer Center = COVID-19 Vaccination (4 - Booster for Pfizer series)] Future Scheduled Test 2022-04-21 COVID-19 Vaccination [facility] 12:40:06 (4 - [place]oster for [place] MD An derson Pfizer series) [code Cancer Center = COVID-19 Vaccination (4 - Booster for Pfizer series)] Future Scheduled Test 2022-04-21 COVID-19 Vaccination [facility] 12:40:06 (4 - Booster for Dat MD An derson Pfizer series) [code Cancer Center = COVID-19 Vaccination (4 - Booster for Pfizer series)] Future Scheduled Test 2022-04-[address] [facility] 00:00:00 (12+) [code = Medical Center DEPRESSION SCREENING (12+)] Future Scheduled Test 2022-04-10 FALLS RISK SCREENING [facility] 00:00:00 [code = FALLS RISK Medical C enter SCREENING] Future Scheduled Test 2022-04-[address] [facility] 00:00:00 (12+) [code = Medical Center DEPRESSION SCREENING (12+)] Future Scheduled Test 2022-04-10 FALLS RISK SCREENING [facility] 00:00:00 [code = FALLS RISK Medical C enter SCREENING] Future Scheduled Test 2022-04-[address] [facility] 00:00:00 (12+) [code = Medical Center DEPRESSION SCREENING (12+)] Future Scheduled Test 2022-04-10 FALLS RISK SCREENING [facility] 00:00:00 [code = FALLS RISK Medical C enter SCREENING] Future Scheduled Test 2022-04-[address] [facility] 00:00:00 (12+) [code = Medical Center DEPRESSION SCREENING (12+)] Future Scheduled Test 2022-04-10 FALLS RISK SCREENING [facility] 00:00:00 [code = FALLS RISK Medical C enter SCREENING] Future Scheduled Test 2022-04-[address] [facility] 00:00:00 (12+) [code = Medical Center DEPRESSION SCREENING (12+)] Future Scheduled Test 2022-04-10 FALLS RISK SCREENING [facility] 00:00:00 [code = FALLS RISK Medical C enter SCREENING] Future Scheduled Test 2022-04-[address] [facility] 00:00:00 (12+) [code = Medical Center DEPRESSION SCREENING (12+)] Future Scheduled Test 2022-04-10 FALLS RISK SCREENING [facility] 00:00:00 [code = FALLS RISK Medical C enter SCREENING] Future Scheduled Test 2022-04-[address] [facility] 00:00:00 (12+) [code = Medical Center DEPRESSION SCREENING (12+)] Future Scheduled Test 2022-04-10 FALLS RISK SCREENING [facility] 00:00:00 [code = FALLS RISK Medical C enter SCREENING] Future Scheduled Test 2022-04-[address] [facility] 00:00:00 (12+) [code = Medical Center DEPRESSION SCREENING (12+)] Future Scheduled Test 2022-04-10 FALLS RISK SCREENING [facility] 00:00:00 [code = FALLS RISK Medical C enter SCREENING] Future Scheduled Test 2022-04-[address] [facility] 00:00:00 (12+) [code = Medical Center DEPRESSION SCREENING (12+)] Future Scheduled Test 2022-04-10 FALLS RISK SCREENING [facility] 00:00:00 [code = FALLS RISK Medical C enter SCREENING] Future Scheduled Test 2022-04-[address] [facility] 00:00:00 (12+) [code = Medical Center DEPRESSION SCREENING (12+)] Future Scheduled Test 2022-04-10 FALLS RISK SCREENING [facility] 00:00:00 [code = FALLS RISK Medical C enter SCREENING] Future Scheduled Test 2022-04-[address] [facility] 00:00:00 (12+) [code = Medical Center DEPRESSION SCREENING (12+)] Future Scheduled Test 2022-04-10 FALLS RISK SCREENING [facility] 00:00:00 [code = FALLS RISK Medical C enter SCREENING] Future Scheduled Test 2022-04-[address] [facility] 00:00:00 (12+) [code = Medical Center DEPRESSION SCREENING (12+)] Future Scheduled Test 2022-04-10 FALLS RISK SCREENING [facility] 00:00:00 [code = FALLS RISK Medical C enter SCREENING] Future Scheduled Test 2022-03-23 Hepatitis C screening [facility] 11:27:46 (procedure) [code = [id number]] Future Scheduled Test 2022-03-23 SHINGLES VACCINES (1 [facility] 11:27:46 of 2) [code = SHINGLES VACCINES (1 of 2)] Future Scheduled Test 2022-03-23 [facility] 11:27:46 SCREENING [code = BREAST CANCER SCREENING] Future Scheduled Test 2022-03-23 COLONOSCOPY SCREENING [facility] 11:27:46 [code = COLONOSCOPY SCREENING] Future Scheduled Test 2022-03-23 65+ PNEUMOCOCCAL [facility] 11:27:46 VACCINE (2 - PPSV23 if available, else PCV20) [code = 65+ PNEUMOCOCCAL VACCINE (2 - PPSV23 if available, else PCV20)] Future Scheduled Test 2022-03-23 COVID-19 VACCINE (3 - [facility] 11:27:46 Pfizer risk series) [code = COVID-19 VACCINE (3 - Pfizer risk series)] Future Scheduled Test 2022-03-23 INFLUENZA VACCINE [facility] 11:27:46 [code = INFLUENZA VACCINE] Future Scheduled Test 2022-03-23 Hepatitis C screening [facility] 11:27:46 (procedure) [code = [id number]] Future Scheduled Test 2022-03-23 SHINGLES VACCINES (1 [facility] 11:27:46 of 2) [code = SHINGLES VACCINES (1 of 2)] Future Scheduled Test 2022-03-23 BREAST CANCER [facility] 11:27:46 SCREENING [code = BREAST CANCER SCREENING] Future Scheduled Test 2022-03-23 COLONOSCOPY SCREENING [facility] 11:27:46 [code = COLONOSCOPY SCREENING] Future Scheduled Test 2022-03-23 65+ PNEUMOCOCCAL [facility] 11:27:46 VACCINE (2 - PPSV23 if available, else PCV20) [code = 65+ PNEUMOCOCCAL VACCINE (2 - PPSV23 if available, else PCV20)] Future Scheduled Test 2022-03-23 COVID-19 VACCINE (3 - [facility] 11:27:46 Pfizer risk series) [code = COVID-19 VACCINE (3 - Pfizer risk series)] Future Scheduled Test 2022-03-23 INFLUENZA VACCINE [facility] 11:27:46 [code = INFLUENZA VACCINE] Future Scheduled Test 2022-02-16 COVID-19 Vaccination [facility] 10:13:21 (4 - Booster for Dat blackman [...] Future Scheduled Test 2021-12-08 Hepatitis C screening [facility] 16:53:28 (procedure) [code = [id number]] Future Scheduled Test 2021-12-08 SHINGLES VACCINES (1 [facility] 16:53:28 of 2) [code = SHINGLES VACCINES (1 of 2)] Future Scheduled Test 2021-12-08 BREAST CANCER [facility] 16:53:28 SCREENING [code = BREAST CANCER SCREENING] Future Scheduled Test 2021-12-08 COLONOSCOPY SCREENING [facility] 16:53:28 [code = COLONOSCOPY SCREENING] Future Scheduled Test 2021-12-08 65+ PNEUMOCOCCAL [facility] 16:53:28 VACCINE (2 - PPSV23 or PCV20) [code = 65+ PNEUMOCOCCAL VACCINE (2 - PPSV23 or PCV20)] Future Scheduled Test 2021-12-08 COVID-19 VACCINE (3 [facility] 16:53:28 Pfizer risk series) [code = COVID-19 VACCINE (3 - Pfizer risk series)] Future Scheduled Test 2021-12-08 INFLUENZA VACCINE [facility] 16:53:28 [code = INFLUENZA VACCINE] Future Scheduled Test 2021-12-08 Hepatitis C screening [facility] 16:53:28 (procedure) [code = [id number]] Future Scheduled Test 2021-12-08 SHINGLES VACCINES (1 [facility] 16:53:28 of 2) [code = SHINGLES VACCINES (1 of 2)] Future Scheduled Test 2021-12-08 BREAST CANCER [facility] 16:53:28 SCREENING [code = BREAST CANCER SCREENING] Future Scheduled Test 2021-12-08 COLONOSCOPY SCREENING [facility] 16:53:28 [code = COLONOSCOPY SCREENING] Future Scheduled Test 2021-12-08 65+ PNEUMOCOCCAL [facility] 16:53:28 VACCINE (2 - PPSV23 or PCV20) [code = 65+ PNEUMOCOCCAL VACCINE (2 - PPSV23 or PCV20)] Future Scheduled Test 2021-12-08 COVID-19 VACCINE (3 - [facility] 16:53:28 Pfizer risk series) [code = COVID-19 VACCINE (3 - Pfizer risk series)] Future Scheduled Test 2021-12-08 INFLUENZA VACCINE [facility] 16:53:28 [code = INFLUENZA VACCINE] Future Scheduled Test 2021-11-24 COVID-19 Vaccination [facility] 10:06:37 (4 - Booster for [place] MD Nevin blackman Pfizer series) [code Cancer Center = COVID-19 Vaccination (4 - Booster for Pfizer series)] Future Scheduled Test 2021-11-24 COVID-19 Vaccination [facility] 10:06:37 (4 - Booster for Dat blackman Pfizer series) [code Cancer Center = COVID-19 Vaccination (4 - Booster for Pfizer series)] Future Scheduled Test 2021-09-21 COVID-19 Vaccination [facility] 23:26:30 (4 - Booster for [place] Nevin blackman Pfizer series) [code Cancer Center = COVID-19 Vaccination (4 - Booster for Pfizer series)] Future Scheduled Test 2021-04-[address] [facility] 00:00:00 [facility]ing [facility] Medical Cente r Screening (12+) [code = Tobacco Cessation Counseling and Screening (12+)] Future Scheduled Test 2021-04-[address] [facility] 00:00:00 Counseling and Medical Cente r Screening (12+) [code = Tobacco Cessation Counseling and Screening (12+)] Future Scheduled Test 2021-04-[address] [facility] 00:00:00 Counseling and Medical Cente r Screening (12+) [code = Tobacco Cessation Counseling and Screening (12+)] Future Scheduled Test 2021-04-[address] [facility] 00:00:00 Counseling and Medical Cente r Screening (12+) [code = Tobacco Cessation Counseling and Screening (12+)] Future Scheduled Test 2021-04-[address] [facility] 00:00:00 Counseling and Medical Cente r Screening (12+) [code = Tobacco Cessation Counseling and Screening (12+)] Future Scheduled Test 2021-04-[address] [facility] 00:00:00 Counseling and Medical Cente r Screening (12+) [code = Tobacco Cessation Counseling and Screening (12+)] Future Scheduled Test 2021-04-[address] [facility] 00:00:00 Counseling and Medical Cente r Screening (12+) [code = Tobacco Cessation Counseling and Screening (12+)] Future Scheduled Test 2021-04-[address] [facility] 00:00:00 Counseling and Medical Cente r Screening (12+) [code = Tobacco Cessation Counseling and Screening (12+)] Future Scheduled Test 2021-04-[address] [facility] 00:00:00 Counseling and Medical Cente r Screening (12+) [code = Tobacco Cessation Counseling and Screening (12+)] Future Scheduled Test 2021-04-[address] [facility] 00:00:00 Counseling and Medical Cente r Screening (12+) [code = Tobacco Cessation Counseling and Screening (12+)] Future Scheduled Test 2021-04-[address] [facility] 00:00:00 Counseling and Medical Cente r Screening (12+) [code = Tobacco Cessation Counseling and Screening (12+)] Future Scheduled Test 2021-04-15 Tobacco Cessation C [...] VACCINES (1 of 2)] Future Scheduled Test 1967-08-12 SHINGLES VACCINES ([address] [facility] 00:00:00 of 2) [code = Medical Center SHINGLES VACCINES (1 of 2)] Future Scheduled Test 1967-08-12 SHINGLES VACCINES ([address] [facility] 00:00:00 of 2) [code = Medical Center SHINGLES VACCINES (1 of 2)] Future Scheduled Test 1967-08-12 SHINGLES VACCINES ([address] [facility] 00:00:00 of 2) [code = Medical Center SHINGLES VACCINES (1 of 2)] Future Scheduled Test 1967-08-12 SHINGLES VACCINES ([address] [facility] 00:00:00 of 2) [code = Medical Center SHINGLES VACCINES (1 of 2)] Future Scheduled Test 1967-08-12 SHINGLES VACCINES ([address] [facility] 00:00:00 of 2) [code = Medical Center SHINGLES VACCINES (1 of 2)] Future Scheduled Test 1967-08-12 SHINGLES VACCINES ([address] [facility] 00:00:00 [...] Medica l Center breast (procedure) [code = [id number]] Future Scheduled Test [address] [facility] 00:00:00 (combo) [code = CT Medical C enter Colonography (combo)] Future Scheduled Test 1948 [facility]:00 malignant neoplasm of Medica [facility] Center colon (procedure) [code = 827532184] Future Scheduled Test 1948 [facility]:00 malignant neoplasm of [facility]ica [facility] Center colon (procedure) [code = 990613851] Future Scheduled Test 1948 DXA SCAN [code = DXA [facility] 00:00:00 SCAN] [facility] Future Scheduled Test 1948 [facility]:00 malignant neoplasm of Medica [facility] Center colon (procedure) [code = 657231915] Future Scheduled Test 1948 [facility] for [facility] 00:[facility]:00 malignant neoplasm of [facility] Center colon (procedure) [code = 664368133] Future Scheduled Test 1948 Sigmoidoscopy [code = [facility] 00:00:00 Sigmoidoscopy] Medical Addise r Future Scheduled Test 1948 Scre[facility] for [facility] 00:00:00 malignant neoplasm of [facility] Center breast (procedure) [code = 258402393] Future Scheduled Test 1948 [facility] for [facility] 00:00:00 malignant neoplasm of [facility] Center breast (procedure) [code = 296055509] Future Scheduled Test [address] [facility] 00:00:00 (combo) [code = CT Medical C enter Colonography (combo)] Future Scheduled Test 1948 [facility] for [facility] 00:00:00 malignant neoplasm of [facility]ica [facility] Center colon (procedure) [code = 757581253] Future Scheduled Test 1948 [facility] for [facility] 00:00:00 malignant neoplasm of Medica Center colon (procedure) [code = 849960306] Future Scheduled Test 1948 DXA SCAN [code = DXA [facility] 00:00:00 SCAN] [facility] Future Scheduled Test 1948 [facility] 00:00:00 malignant neoplasm of Medica [facility] Center colon (procedure) [code = 520377646] Future Scheduled Test [address] [facility] 00:00:00 (combo) [code = CT Medical C enter Colonography (combo)] Future Scheduled Test 1948 Scre[facility] for [facility] 00:00:00 malignant neoplasm of Medica [facility] Center colon (procedure) [code = 952389165] Future Scheduled Test 1948 Sigmoidoscopy [code = [facility] 00:00:00 Sigmoidoscopy] Medical Addise r Future Scheduled Test 1948 Scre[facility] for [facility] 00:00:00 malignant neoplasm of Medica l Center colon (procedure) [code = 801574559] Future Scheduled Test 1948 [facility] [code = 857647834] Future Scheduled Test [address] [facility] 00:00:00 (combo) [code = CT Medical C enter Colonography (combo)] Future Scheduled Test 1948 [facility] for [facility] 00:00:00 malignant neoplasm of Medica l Center colon (procedure) [code = 077861982] Future Scheduled Test 1948 Scre[facility] for [facility] 00:00:00 malignant neoplasm of [facility]ica [facility] Center colon (procedure) [code = 651261224] Future Scheduled Test 1948 [facility] 00:00:00 malignant neoplasm of Medica [facility] Center colon (procedure) [code = 442803148] Future Scheduled Test 1948 DXA SCAN [code = DXA [facility] 00:00:00 SCAN] [facility] Future Scheduled Test 1948 [facility] 00:00:00 malignant neoplasm of Medica [facility] Center colon (procedure) [code = 043276634] Future Scheduled Test 1948 [facility] 00:00:00 malignant neoplasm of [facility]ica [facility] Center colon (procedure) [code = 161299710] Future Scheduled Test 1948 Sigmoidoscopy [code = [facility] 00:00:00 Sigmoidoscopy] [facility] Future Scheduled Test 1948 DXA SCAN [code = DXA [facility] 00:00:00 SCAN] [facility] Future Scheduled Test 1948 [facility] 00:00:00 malignant neoplasm of [facility]ica l Center colon (procedure) [code = 756090369] Future Scheduled Test 1948 [facility] 00:00:00 malignant neoplasm of [facility] Center breast (procedure) [code = 554597222] Future Scheduled Test [address] [facility] 00:00:00 (combo) [code = CT Medical C enter Colonography (combo)] Future Scheduled Test 1948 [facility] 00:00:00 malignant neoplasm of [facility]ica [facility] Center colon (procedure) [code = 398697113] Future Scheduled Test 1948 [facility] 00:00:00 malignant neoplasm of [facility] Center colon (procedure) [code = 684038008] Future Scheduled Test 1948 DXA SCAN [code = DXA [facility] 00:00:00 SCAN] [facility] Future Scheduled Test 1948 [facility] 00:00:00 malignant neoplasm of [facility] Center colon (procedure) [code = 259574236] Future Scheduled Test 1948 [facility] 00:00:00 malignant neoplasm of [facility] Center colon (procedure) [code = 908192400] Future Scheduled Test 1948 Sigmoidoscopy [code = [facility] 00:00:00 Sigmoidoscopy] [facility] Future Scheduled Test 1948 [facility] 00:00:00 malignant neoplasm of [facility]ica [facility] Center colon (procedure) [code = 622798123] Future Scheduled Test 1948 Sigmoidoscopy [code = [facility] 00:00:00 Sigmoidoscopy] [facility] Future Scheduled Test 1948 [facility] for [facility] 00:00:00 malignant neoplasm of [facility] Center breast (procedure) [code = 292704478] Future Scheduled Test [address] [facility] 00:00:00 (combo) [code = CT Medical C enter Colonography (combo)] Future Scheduled Test 1948 [facility] for [facility] 00:00:00 malignant neoplasm of [facility] Center colon (procedure) [code = 105086437] Future Scheduled Test 1948 Screening for [facility] 00:00:00 malignant neoplasm of [facility] Center colon (procedure) [code = 045258179] Future Scheduled Test 1948 DXA SCAN [code = DXA [facility] 00:00:00 SCAN] [facility] Future Scheduled Test 1948 [facility] 00:00:00 malignant neoplasm of [facility]ica [facility] Center colon (procedure) [code = 879272952] Future Scheduled Test 1948 [facility]ening for [facility] 00:00:00 malignant neoplasm of [facility] Center colon (procedure) [code = 218036244] Future Scheduled Test 1948 Sigmoidoscopy [code = [facility] 00:00:00 Sigmoidoscopy] [facility] Future Scheduled Test 1948 [facility] 00:00:00 malignant neoplasm of [facility] Center breast (procedure) [code = 376781052] Future Scheduled Test [address] [facility] 00:00:00 (combo) [code = CT Medical C enter Colonography (combo)] Future Scheduled Test 1948 [facility] for [facility] 00:00:00 malignant neoplasm of [facility] Center colon (procedure) [code = 520204069] Future Scheduled Test 1948 Screening for [facility] 00:00:00 malignant neoplasm of [facility] Center colon (procedure) [code = 638012583] Future Scheduled Test 1948 DXA SCAN [code = DXA [facility] 00:00:00 SCAN] [facility] Future Scheduled Test 1948 [facility] 00:00:00 malignant neoplasm of [facility] Center colon (procedure) [code = 998031828] Future Scheduled Test 1948 [facility] 00:00:00 malignant neoplasm of [facility] Center colon (procedure) [code = 743204561] Future Scheduled Test 1948 Sigmoidoscopy [code = [facility] 00:00:00 Sigmoidoscopy] [facility] Future Scheduled Test 1948 [facility]:00 malignant neoplasm of [facility] Center breast (procedure) [code = 063426901] Future Scheduled Test [address] [facility] 00:00:00 (combo) [code = CT Medical C enter Colonography (combo)] Future Scheduled Test 1948 [facility] for [facility] 00:00:00 malignant neoplasm of [facility] Center colon (procedure) [code = 355969690] Future Scheduled Test 1948 [facility] for [facility] 00:00:00 malignant neoplasm of [facility] Center colon (procedure) [code = 664415461] Future Scheduled Test 1948 DXA SCAN [code = DXA [facility] 00:00:00 SCAN] [facility] Future Scheduled Test 1948 [facility] 00:00:00 malignant neoplasm of [facility] Center colon (procedure) [code = 359715696] Future Scheduled Test 1948 [facility] for [facility] 00:00:00 malignant neoplasm of [facility] Center colon (procedure) [code = 589567799] Future Scheduled Test 1948 Sigmoidoscopy [code = [facility] 00:00:00 Sigmoidoscopy] [facility] Future Scheduled Test 1948 [facility] 00:00:00 malignant neoplasm of [facility] Center breast (procedure) [code = 854288080] Future Scheduled Test [address] [facility] 00:00:00 (combo) [code = CT Medical C enter Colonography (combo)] Future Scheduled Test 1948 Screening for [facility] 00:00:00 malignant neoplasm of [facility] Center colon (procedure) [code = 832884570] Future Scheduled Test 1948 Screening for [facility] 00:00:00 malignant neoplasm of [facility] Center colon (procedure) [code = 295353467] Future Scheduled Test 1948 DXA SCAN [code = DXA [facility] 00:00:00 SCAN] [facility] Future Scheduled Test 1948 [facility] 00:00:00 malignant neoplasm of [facility] Center colon (procedure) [code = 270419092] Future Scheduled Test 1948 [facility] for [facility] 00:00:00 malignant neoplasm of [facility] Center colon (procedure) [code = 174665834] Future Scheduled Test 1948 Sigmoidoscopy [code = [facility] 00:00:00 Sigmoidoscopy] [facility] Future Scheduled Test 1948 [facility] 00:00:00 malignant neoplasm of [facility] Center breast (procedure) [code = 685420542] Future Scheduled Test [address] [facility] 00:00:00 (combo) [code = CT Medical C enter Colonography (combo)] Future Scheduled Test 1948 Screening for [facility] 00:00:00 malignant neoplasm of [facility] Center colon (procedure) [code = 608826730] Future Scheduled Test 1948 Screening for [facility] 00:00:00 malignant neoplasm of [facility] Center colon (procedure) [code = 614024194] Future Scheduled Test 1948 DXA SCAN [code = DXA [facility] 00:00:00 SCAN] [facility] Future Scheduled Test 1948 [facility] 00:00:00 malignant neoplasm of [facility] Center colon (procedure) [code = 509345090] Future Scheduled Test 1948 [facility] for [facility] 00:00:00 malignant neoplasm of [facility] Center colon (procedure) [code = 971706847] Future Scheduled Test 1948 Sigmoidoscopy [code = [facility] 00:00:00 Sigmoidoscopy] [facility] Future Scheduled Test 1948 Screening for [facility]:00 [facility] breast (procedure) [code = 133435123] Future Scheduled Test [address] [facility] 00:00:00 (combo) [code = CT Medical C enter Colonography (combo)] Future Scheduled Test 1948 Screening for [facility] 00:[facility]:00 [facility] colon (procedure) [code = 009003944] Future Scheduled Test 1948 Screening for [facility]:00 [facility] colon (procedure) [code = 001132599] Future Scheduled Test 1948 DXA SCAN [code = DXA [facility] 00:00:00 SCAN] [facility] Future Scheduled Test 1948 [facility]:00 [facility] colon (procedure) [code = 150944511] Future Scheduled Test 1948 Screening for [facility] 00:[facility]:00 [facility] colon (procedure) [code = 791773440] Future Scheduled Test 1948 Sigmoidoscopy [code = [facility] 00:00:00 Sigmoidoscopy] [facility] Future Scheduled Test 1948 Screening [facility] 00:00:00 malignant [facility] breast (procedure) [code = 354489376] Future Scheduled Test [address] [facility] 00:00:00 (combo) [code = CT Medical C enter Colonography (combo)] Future Scheduled Test 1948 [facility]ening for [facility] 00:[facility]:00 [facility] colon (procedure) [code = 913100769] Future Scheduled Test 1948 Screening for [facility] 00:[facility]:00 [facility] colon (procedure) [code = 138810132] Future Scheduled Test 1948 DXA SCAN [code = DXA [facility] 00:00:00 SCAN] [facility] Future Scheduled Test 1948 [facility]:00 [facility] colon (procedure) [code = 813514507] Future Scheduled Test 1948 Screening for [facility] 00:00:00 malignant [facility] colon (procedure) [code = 360055571] Future Scheduled Test 1948 Sigmoidoscopy [code = [facility] 00:00:00 Sigmoidoscopy] [facility] Future Scheduled Test 1948 Screening for [facility]:00:00 [facility] breast (procedure) [code = 345160631] Future Scheduled Test [address] [facility] 00:00:00 (combo) [code = CT Medical C enter Colonography (combo)] Future Scheduled Test 1948 [facility]ening for [facility] 00:00:00 [facility] colon (procedure) [code = 688313960] Future Scheduled Test 1948 Screening for [facility] 00:00:00 malignant [facility] colon (procedure) [code = 030087883] Future Scheduled Test 1948 DXA SCAN [code = DXA [facility] 00:00:00 SCAN] [facility] Future Scheduled Test 1948 [facility] 00:[facility]:00 [facility] colon (procedure) [code = 968737350] Future Scheduled Test 1948 Screening for [facility] 00:00:00 malignant [facility] colon (procedure) [code = 029374199] Future Scheduled Test 1948 Sigmoidoscopy [code = [facility] 00:00:00 Sigmoidoscopy] Medical Ashlee dunn Future Scheduled Test 1948 Screening for [facility] 00:00:00 [facility] breast (procedure) [code = 633973576] Future Scheduled Test [address] [facility] 00:00:00 (combo) [code = CT Medical C enter Colonography (combo)] Future Scheduled Test 1948 [facility] for [facility] 00:00:00 malignant [facility] colon (procedure) [code = 343945203] Future Scheduled Test 1948 Screening for [facility] 00:00:00 malignant [facility] colon (procedure) [code = 420296267] Future Scheduled Test 1948 DXA SCAN [code = DXA [facility] 00:00:00 SCAN] [facility] Future Scheduled Test 1948 [facility] 00:00:00 [facility] colon (procedure) [code = 672362538] Future Scheduled Test 1948 Screening for [facility] 00:00:00 malignant [facility] colon (procedure) [code = 132878525] Future Scheduled Test 1948 Sigmoidoscopy [code = [facility] 00:00:00 Sigmoidoscopy] Medical Ashlee dunn [facility] Encounters Start End Encounter Admission Attending Care Care Encounter Source Date/Time Date/Time Type Type Clinicians Facility Department ID 2022-08-31 Outpatient SYSTEM, CATALINO BAE [id number] 20:32:57 PROVIDER Hayderashley lizama 2021-12-08 Outpatient SYSTEM, CATALINO BAE [id number] 08:49:55 PROVIDER Hayderashley lizama 2021-10-07 Outpatient SYSTEM, CATALINO BAE [id number] 18:28:31 PROVIDER Hayder o n 2021-07-07 Outpatient SYSTEM, MDA MDA [id number] 17:15:10 PROVIDER Hayder o n 2021-06-04 Outpatient SYSTEM, MDA MDA [id number] 12:55:23 PROVIDER Hayder o n 2021-01-08 Outpatient SYSTEM, MDA MDA [id number] 09:29:06 PROVIDER Hayder o n 2020-11-10 Outpatient SYSTEM, MDA CATALINO [id number] 10:24:00 PROVIDER Hayder o n 2020-10-06 Outpatient SYSTEM, MDA MDA [id number] 11:31:02 PROVIDER Hayder o n 2019-10-09 Outpatient SYSTEM, MDA MDA [id number] 11:04:10 PROVIDER Hayder o n 2023-07-17 2023-07-17 Outpatient R PIERRE, [facility] [id number] Univers 11:20:00 [facility] 2022-09-30 2022-09-[address] [facility] [id number] Univers 00:00:00 00:00:[address] [facility] 2022-09-12 2022-09-12 Outpatient R PIERRE, [facility] [id number] Univers 16:00:00 [facility] 2022-09-10 2022-09-10 Outpatient SFA SFA [id number] Víctor 10:17:18 10:17:18 [id number] F James 2022-08-17 2022-08-17 Roscoe Das, 1.2.840.1 [id number] Univers 00:00:00 00:00:00 Fouzia L 78983.1.1 ity of 3.412.2.7 [place] .3.916388 .8 [facility] 2022-08-17 2022-08-17 Roscoe Das, 1.2.840.1 [id number] Univers 00:00:00 00:00:00 Fouzia L 73114.1.1 ity of 3.412.2.7 [place] .3.083176 .8 [facility] 2022-08-15 2022-08-15 Outpatient R PIERRE, [facility] [id number] Univers 10:00:00 10:00:[address] [facility] 2022-08-12 2022-08-12 Follow-Up Vanessa Singh 1.2.840.1 [id number] Univers 09:30:00 11:49:16 C. 78753.1.1 ity of 3.412.2.7 [place] .3.867454 MD Blood [facility] 2022-08-12 2022-08-12 Follow-Up DAISY Singh Vanessa 1.2.840.1 [id number] Univers 09:30:00 11:49:16 C. 16654.1.1 ity of 3.412.2.7 [place] .3.033308 MD Blood [facility] 2022-08-12 2022-08-12 Travel 1.2.840.1 1.2.263.403 [id number] Univers 00:00:00 00:00:00 37656.1.1 350.1.13.41 ity of 3.412.2.7 [place]7.3.698 [place] .3.867716 084.8 MD Blood [facility] 2022-08-12 2022-08-12 Travel 1.2.840.1 1.2.183.701 0983 [id number] Univers 00:00:00 00:00:00 81069.1.1 350.1.13.41 ity of 3.412.2.7 2.[place].7.3.698 [place] .3.228727 084.8 MD Blood [facility] 2022-08-09 2022-08-09 [facility] 1.2.840.1 [id number] Univers 08:39:53 23:59:00 Sharron Reynolds 07285.1.1 ity of 3.412.2.7 [place] .3.195174 MD Blood [facility] 2022-08-09 2022-08-09 [facility], 1.2.840.1 [id number] Univers 08:39:53 23:59:00 Encounter Fouzia L 32927.1.1 ity of 3.412.2.7 [place] .3.202049 MD Blood [facility] 2022-08-09 2022-08-09 [facility], 1.2.840.1 [id number] Univers 09:15:00 12:00:00 Procedure Fouzia L 79150.1.1 ity of 3.412.2.7 [place] .3.877108 MD Blood [facility] 2022-08-09 2022-08-09 [facility], 1.2.840.1 [id number] [facility] 09:15:00 12:00:00 Procedure Fouzia L 60739.1.1 ity of 3.412.2.7 [place] .3.389808 MD Blood [facility] 2022-08-09 2022-08-09 [facility], 1.2.840.1 [id number] [id number] Univers 08:30:00 08:38:00 Encounter Fouzia L 73262.1.1 ity of 3.412.2.7 [place] .3.645789 MD Blood [facility] 2022-08-09 2022-08-09 [facility], 1.2.840.1 [id number] Univers 08:30:00 08:38:00 Encounter Fouzia L 20569.1.1 ity of 3.412.2.7 [place] .3.153079 MD Blood [facility] 2022-08-09 2022-08-09 [facility] 1.2.840.1 1.2.280.708 [id number] Univers 00:00:00 00:00:00 32375.1.1 350.1.13.41 ity of 3.412.2.7 [place]7.3.698 [place] .3.669393 084.8 MD Blood [facility] 2022-08-09 2022-08-09 Travel 1.2.840.1 1.2.799.088 [id number] Univers 00:00:00 00:00:00 21489.1.1 350.1.13.41 ity of 3.412.2.7 [place]7.3.698 [place] .3.813049 084.8 .8 [facility] 2022-08-04 2022-08-04 Orders Doctor YAJAIRA 1.2.840.114 [id number] Univers 00:00:00 00:00:00 Only Unassigned, THALIA 350.1.13.10 ity of [facility] 4.2.7.2.686 [place] [id number] [address] 2022-07-26 2022-07-26 Outpatient S[facility] V[facility]ctor 10:31:38 10:31:38 [id number] [facility] [place] 2022-07-14 2022-07-14 Office Pierre [facility] 1.2.840.114 [id number] [facility] 14:00:00 14:57:21 Visit Saravanan MUSTAFA 350.1.13.10 ity [facility] 4.2.7.2.686 [place] PROFESS[place] [id number] [address] 2022-07-14 2022-07-[address] [facility] [id number] Univers 14:00:00 14:57:21 SARAVANAN king o [facility] 2022-07-05 2022-07-05 Outpatient S[facility] V[facility]ctor 14:09:59 14:09:59 [id number] F [place] 2022-06-28 2022-06-28 Outpatient SFA SFA [place] 13:13:23 13:13:23 [id number] F [place] 2022-06-08 2022-06-08 Outpatient SFA SFA [place] 15:19:09 15:19:09 [id number] F [place] 2022-05-30 2022-05-30 Outpatient SFA SFA [place] 09:05:15 09:05:15 [id number] F [place] 2022-05-06 2022-05-06 Outpatient SFA SFA [id number] Víctor 13:58:56 13:58:56 [id number] F [place] 2022-04-29 2022-04-29 Outpatient SFA SFA [id number] Víctor 11:05:47 11:05:47 82469 F James 2022-01-28 2022-01-28 Office Aquiles Vanessa 1.2.840.1 [id number] [facility] 10:15:00 12:43:26 Visit C. 00952.1.1 ity of 3.412.2.7 [place] .3.619018 MD Blood [facility] 2022-01-28 2022-01-28 Office DAISY Singh Vanessa 1.2.840.1 [id number] [facility] 10:15:00 12:43:26 Visit C. 28135.1.1 ity of 3.412.2.7 [place] .3.981900 MD Blood [facility] 2022-01-28 2022-01-28 Travel 1.2.840.1 1.2.060.987 7186 [id number] [facility] 00:00:00 00:00:00 90807.1.1 350.1.13.41 ity of 3.412.2.7 2.[place].7.3.698 [place] .3.936981 084.8 MD Blood [facility] 2022-01-28 2022-01-28 Travel 1.2.840.1 1.2.801.876 [id number] [id number] Univers 00:00:00 00:00:00 42670.1.1 350.1.13.41 ity of 3.412.2.7 2.[place].7.3.698 [place] .3.053175 084Cristofer8 MD Blood [facility] 2022-01-26 2022-01-26 [facility], 1.2.840.1 [id number] [facility] 09:00:00 09:00:00 Sharron Reynolds 99031.1.1 ity of 3.412.2.7 [place] .3.737654 MD Blood [facility] 2022-01-26 2022-01-26 [facility], 1.2.840.1 [id number] [id number] Univers 09:00:00 09:00:00 Encounter Fouzia L 78267.1.1 ity of 3.412.2.7 [place] .3.784699 MD [place]8 [facility] 2022-01-26 2022-01-26 [facility], 1.2.840.1 [id number] Univers 09:00:00 09:00:00 Encounter Fouzia L 94283.1.1 ity of 3.412.2.7 [place] .3.976122 MD [place]8 [facility] 2022-01-26 2022-01-26 [facility], 1.2.840.1 [id number] [id number] Univers 09:00:00 09:00:00 Encounter Fouzia L 21072.1.1 ity of 3.412.2.7 [place] .3.976328 MD Blood [facility] [place] 2021-08-06 2021-08-06 Office Vanessa Machado 1.2.840.1 [id number] Univers 10:15:00 11:51:48 Visit C. 37877.1.1 ity of 3.412.2.7 [place] .3.503763 MD Blood [facility] 2021-08-06 2021-08-06 Travel 1.2.840.1 1.2.203.084 9046 [id number] Univers 00:00:00 00:00:00 06523.1.1 350.1.13.41 ity of 3.412.2.7 2.2.7.3.698 [place] .3.686564 084.8 MD Blood [facility] 2021-08-05 2021-08-05 Ancillary [facility], 1.2.840.1 [id number] Univers 18:15:00 21:00:00 Procedure Fouzia L 21182.1.1 ity of 3.412.2.7 [place] .3.643545 MD Blood [facility] 2021-08-05 2021-08-05 Travel 1.2.840.1 1.2.077.209 8138 [id number] Univers 00:00:00 00:00:00 48193.1.1 350.1.13.41 ity of 3.412.2.7 2.2.7.3.698 [place] .3.427516 084.8 MD Blood [facility] 2021-08-03 2021-08-03 [facility], 1.2.840.1 [id number] [id number] Univers 10:02:52 23:59:00 Encounter Fouzia Reynolds 32874.1.1 ity of 3.412.2.7 [place] .3.753553 MD Blood [facility] 2021-08-02 2021-08-02 [facility], 1.2.840.1 [id number] Univers 00:00:00 00:00:00 Only Fouzia Reynolds 37883.1.1 ity of 3.412.2.7 [place] .3.475959 MD Blood [facility] 2021-08-02 2021-08-02 [facility], 1.2.840.1 [id number] Univers 00:00:00 00:00:00 Fouzia Reynolds 68544.1.1 ity of 3.412.2.7 [place] .3.383043 MD Blood [facility] 2021-02-05 2021-02-05 Office Vanessa Machado 1.2.840.1 [id number] Univers 10:00:00 11:39:51 Visit CCristofer 18275.1.1 ity of 3.412.2.7 [place] .3.499446 MD Blood [facility] 2021-02-05 2021-02-05 Travel 1.2.840.1 1.2.738.393 1259 [id number] Univers 00:00:00 00:00:00 13676.1.1 350.1.13.41 ity of 3.412.2.7 2.[place]7.3.698 [place] .3.598106 084.8 .8 [facility] 2021-02-03 2021-02-03 [facility], .2.840.1 [id number] [facility] 09:48:49 23:59:00 Encounter Fouzia L 73966.1.1 ity of 3.412.2.7 [place] .3.350241 .8 [facility] 2020-10-29 2020-10-29 [facility], 1.2.840.1 [id number] [id number] [facility] 20:00:00 20:05:00 Procedure Fouzia L 52306.1.1 ity of 3.412.2.7 [place] .3.702704 MD [place]8 [facility] 2020-10-29 2020-10-29 [facility] 1.2.840.1 [id number] [facility] 00:00:00 00:00:00 Only Fouzia L 03567.1.1 ity of 3.412.2.7 [place] .3.849774 MD Blood [facility] 2020-09-25 2020-09-25 Outpatient DAISY S[facility]H [facility] [id number] 07:33:24 07:33:24 Hayder lizama 2020-08-27 2020-08-28 Inpatient [facility]EN [facility] [id number] [place] 00:00:00 00:00:00 , CHANTAL [address] 2020-08-25 2020-08-25 Outpatient [facility] [id number] [place] 00:00:00 00:00:00 , CHANTAL [address] 2020-08-25 2020-08-25 Outpatient [facility] [id number] [place] 00:00:00 00:00:00 , CHANTAL [address] 2020-08-25 2020-08-25 Outpatient [facility] [id number] [place] 00:00:00 00:00:00 , CHANTAL [address] 2020-07-28 2020-07-29 Outpatient [facility] [id number] [place] 00:00:00 00:00:00 , CHANTAL 001 [place] [address] 2020-07-28 2020-07-29 Outpatient [facility] [id number] [place] 00:00:00 00:00:00 , CHANTAL 002 [place] 2020-07-28 2020-07-28 Outpatient [facility] [id number] [place] 00:00:00 00:00:00 , CHANTAL 654 [address] 2020-04-15 2020-04-15 Outpatient [facility]Y [facility] [id number] [facility] 00:00:00 00:00:00 CARL 2020-03-25 2020-03-25 Outpatient DAISY RANGEL [facility] [id number] [facility] 00:00:00 00:00:00 CARL 2020-01-21 2020-01-21 Outpatient Jakub-Mbayo VFP VFP [phone] [facility] 04:16:00 04:16:00 _A_AH 56883 Family Practic e 2019-09-06 2019-09-06 Outpatient Jakub-Mbayo VFP VFP [phone] [facility] 03:36:00 03:36:00 _A_AH 58057 Family Practic e 2019-09-05 2019-09-05 Outpatient Jakub-Mbayo VFP VFP [phone] [facility] 03:05:00 03:05:00 _A_AH 54419 Family Practic e 2019-08-28 2019-08-28 Outpatient Jakub-Mbayo VFP VFP [phone] [facility] 11:03:00 11:03:00 _A_AH 63909 Family Practic e 2019-08-26 2019-08-26 Outpatient Jakub-Mbayo VFP VFP [phone] [facility] 01:01:00 01:01:00 _A_AH 70723 Family Practic e 2019-08-22 2019-08-22 Outpatient Jakub-Mbayo VFP VFP [phone] [facility] 12:21:00 12:21:00 _A_AH 95193 Family Practic e 2019-08-21 2019-08-21 Outpatient Marcial [facility] [address] [place] [address] 11:37:00 11:37:00 _A_AH 25832 Family Practic e 2019-08-21 2019-08-21 Lynnette [facility] [place] - [id number] V illage 00:00:00 00:00:00 [facility] Fam kurtis parker, STRATEGIC CONSULTANT: Medical - Practi c [address] [email or web address] [facility], [address] [place] [address], [place] [address] , Ph. 2019-05-29 2019-05-29 Outpatient Marcial [address] 07:18:00 07:18:00 _A_AH 32670 Family Practic e Results Test Description Test Time Test Comments Results Result Sourc e Comments Urine EDMAR Path 2022-08-08 UIFE Path IntThe [facility] ersity of Review 1 follow-up urine Dat GARCIA 17:09:06 [facility] immunofixation Cancer Lionel ter electrophoretic patterns obtained with the use of antisera against IgG, IgA, IgM, bound kappa and bound lambda light chains, free kappa and free lambda light chains do not show definitive evidence of a Bence-Liang proteinuria. [facility] Urine EDMAR Path 2022-08-08 [facility] Review 1 follow-up urine Dat GARCIA 17:09:06 [facility] immunofixation Cancer Lionel ter electrophoretic patterns obtained with the use of antisera against IgG, IgA, IgM, bound kappa and bound lambda light chains, free kappa and free lambda light chains do not show definitive evidence of a Bence-Liang proteinuria. [facility] EDMAR Urine 2022-08-18 17:09:05 Test Item Value Reference Range Interpretation Comme nts UIFE (test code = 7916) No [facility] [id number] 17:09:05 Test Item Value Reference Range Interpretation Comments UIFE (test code = 7916) No BJP [facility] Prot Electrophoresis Path [id number] 17:09:04 Test Item Value Reference Range Interpretation Comments U ProE Path The follow-up urine Int (test protein code = electrophoretic BE VERLY 7803) pattern does not show HANDY, [place] [address] Dictated by: a Bence-Liang protein TRENTON SAAVEDRA MD - peak. [id number] Date/Time: 08.08 12:09 PM CDT Transcribed Date/Time: 08.08 12:09 PM CDTElectronical ly Signed By: MD Gary GIMENEZ 4 on 08.18.2022 12:[address] [facility] Prot Electrophoresis Path [id number] 17:09:04 Test Item Value Reference Range Interpretation Comments U ProE Path The follow-up urine Int (test protein code = electrophoretic BE VERLY 7803) pattern does not show [place]Davis [place] [address] Dictated by: a Bence-Liang protein TRENTON SAAVEDRA MD - peak. [id number] Date/Time: 08.08 12:09 PM CDT Transcribed Date/Time: 08.08 12:09 PM CDTElectronical ly Signed By: MD Gary GIMENEZ 1018 4 on 08.18.2022 12:[address] Urine 2022-08-18 17:09:03 Test Item Value Reference Range Interpretation Comments U Albumin % (test code = 7676) 47.7 % U Globulin% (test code = 8523) 52.3 % [facility] Urine 2022-08-18 17:09:03 Test Item Value Reference Range Interpretation Comments U Albumin % (test code = 7676) 47.7 % U Globulin% (test code = 8523) 52.3 % [facility] Path [id number] 20:00:54 EDMAR Path IntThe follow up serum protein immunofixation electrophoretic patterns obtained with the use of antisera against IgG, IgA, IgM, bound kappa and bound lambda light chain proteins are suggestiveof an oligoclonal gammopathy, although the possibility of a residual M-protein with an associated oligoclonal gammopathy can neither be confirmed nor excluded. [facility] [id number] 20:00:54 EDMAR Path IntThe follow up serum protein immunofixation electrophoretic patterns obtained with the use of antisera against IgG, IgA, IgM, bound kappa and bound lambda light chain proteins are suggestiveof an oligoclonal gammopathy, although the possibility of a residual M-protein with an associated oligoclonal gammopathy can neither be confirmed nor excluded. [facility]-08 20:00:53 Test Item Value Reference Range Interpretation Comments EDMAR (test code = 5948) See Comment [facility]08 20:00:53 Test Item Value Reference Range Interpretation Comments EDMAR (test code = 5948) See Comment [facility] Path Review 2022-08-15 20:00:52SPE Path InterpThe follow-up serum protein electrophoretic pattern shows indistinct peaks in the gamma region. If a paraproteinemia is suspected clinically, serum free light chain studies, serum protein EDMAR studies, serum immunoglobulin quantitation and urine Bence-Liang protein studies are recommended. [facility] Path [id number] 20:00:52SPE Path InterpThe follow-up serum protein electrophoretic pattern shows indistinct peaks in the gamma region. If a paraproteinemia is suspected clinically, serum free light chain studies, serum protein EDMAR studies, serum immunoglobulin quantitation and urine Bence-Liang protein studies are recommended. [facility] 2022-08-15 20:00:51 Test Item Value Reference Range Interpretation Comments TOT PROTEIN (test code 7.1 See_Comment [Aut omated message] The = 3604) system which ge nerated this result tra nsmitted reference range : 6.4 - 8.3 gm/dL. The reference range was not u sed to interpret this result as normal/abnormal . Albumin (test code = 4.0 See_Comment [Autom ated message] The 4760) system which ge nerated this result tra nsmitted reference range : 3.6 - 5.4 gm/dL. The reference range was not u sed to interpret this result as normal/abnormal . Alpha 1 Globulin (test 0.3 See_Comment [Aut omated message] The code = [...] result as normal/abnormal . Beta Globulin (test 0.7 See_Comment [Automa jenny message] The code = 5078) system which ge nerated this result tra nsmitted reference range : 0.5 - 1.1 gm/dL. The reference range was not u sed to interpret this result as normal/abnormal . Gamma Globulin (test 1.1 See_Comment [Autom ated message] The code = 2874-6) system which generated this result tra nsmitted reference range : 0.7 - 1.6 gm/dL. The reference range was not u sed to interpret this result as normal/abnormal . [facility]oresis 2022-08-15 20:00:51 Test Item Value Reference Range Interpretation Comments TOT PROTEIN (test code 7.1 See_Comment [Aut omated message] The = 8545) system which ge nerated this result tra nsmitted reference range : 6.4 - 8.3 gm/dL. The reference range was not u sed to interpret this result as normal/abnormal . Albumin (test code = 4.0 See_Comment [Autom ated message] The 4760) system which ge nerated this result tra nsmitted reference range : 3.6 - 5.4 gm/dL. The reference range was not u sed to interpret this result as normal/abnormal . Alpha 1 Globulin (test 0.3 See_Comment [Aut omated message] The code = [...] result as normal/abnormal . Beta Globulin (test 0.7 See_Comment [Automa jenny message] The code = 5078) system which ge nerated this result tra nsmitted reference range : 0.5 - 1.1 gm/dL. The reference range was not u sed to interpret this result as normal/abnormal . Gamma Globulin (test 1.1 See_Comment [Autom ated message] The code = 2874-6) system which generated this result tra nsmitted reference range : 0.7 - 1.6 gm/dL. The reference range was not u sed to interpret this result as normal/abnormal . [facility] [place]Free Lambda Ratio 2022-08-09 18:13:34 Test Item Value Reference Range Interpretation Comments FKap/FLam RT (test code = 5566) 1.20 0.26-1.[address] [facility] [place]/Free Lambda Ratio 2022-08-09 18:13:34 Test Item Value Reference Range Interpretation Comments FKap/FLam RT (test code = 5566) 1.20 0.26-1.[address] [facility] Lambda Light [id number] 18:13:33 Test Item Value Reference Range Interpretation Comments Free Lambda (test code = 5630) 28.09 mg/L 5.71-26.30 H Lab Interpretation (test code = Abnormal 97785-9) [facility] Lambda Light [id number] 18:13:33 Test Item Value Reference Range Interpretation Comments Free Lambda (test code = 5630) 28.09 mg/L 5.71-26.30 H Lab Interpretation (test code = Abnormal 03455-9) [facility] [place] Light [id number] 18:13:32 Test Item Value Reference Range Interpretation Comments Free [place] (test code = 5629) 33.57 mg/L 3.30-19.40 H Lab Interpretation (test code = Abnormal 02053-5) [facility] [place] Light [id number] 18:13:32 Test Item Value Reference Range Interpretation Comments Free [place] (test code = 5629) 33.57 mg/L 3.30-19.40 H Lab Interpretation (test code = Abnormal 21487-9) [facility] HospitalBeta 2 [id number] 18:13:31 Test Item Value Reference Range Interpretation Comments Beta2 Microglob (test 3.2 mg/L 0.8-2.3 H This t est is measured code = 5090) by turbidimetri c methodology on the The Binding Site Op tilite analyzer. Resul ts obtained from different metho ds are not interchange able. Lab Interpretation Abnormal (test code = 22843-6) [facility] HospitalBeta 2 [id number] 18:13:31 Test Item Value Reference Range Interpretation Comments Beta2 Microglob (test 3.2 mg/L 0.8-2.3 H This t est is measured code = 5090) by turbidimetri c methodology on the The Binding Site Op tilite analyzer. Resul ts obtained from different metho ds are not interchange able. Lab Interpretation Abnormal (test code = 35462-0) [facility] HospitalIgM2023-05-02 18:13:30 Test Item Value Reference Range Interpretation Comments IgM (test code = 6023) 16 mg/dL 35-242 L Lab Interpretation (test code = Abnormal 68228-2) [facility]IgM2023-[facility]-02 18:13:30 Test Item Value Reference Range Interpretation Comments IgM (test code = 6023) 16 mg/dL 35-242 L Lab Interpretation (test code = Abnormal 25788-8) [facility]IgG2023-05-02 18:13:29 Test Item Value Reference Range Interpretation Comments IgG (test code = 6001) 1161 mg/dL 610-[address] [facility]IgG2023-05-02 18:13:29 Test Item Value Reference Range Interpretation Comments IgG (test code = 6001) 1161 mg/dL 610-[address] [facility]IgA2023-05-02 18:13:28 Test Item Value Reference Range Interpretation Comments IgA (test code = 5992) 108 mg/dL 85-[address]IgA2023-05-02 18:13:28 Test Item Value Reference Range Interpretation Comments IgA (test code = 5992) 108 mg/dL 85-[address] [facility] Hospital24hr Urine Total Wcflgul6241-88-24 16:13:19UTP<4mg/dLUT [facility]OENIXUTP 24<120<=149 mg/24hrUT [facility] PHOENIXUnQuail [facility] Hospital24hr Urine Total Yzuptwl5103-28-59 16:13:19UTP<4mg/dLUT [facility] PHOENIXUTP 24<120<=149 mg/24hrUT [facility] PHOENIXUnQuail Creek Surgical HospitalLDH2023-05-02 15:28:25 Test Item Value Reference Range Interpretation Comments LDH (test code = 117 U/L 135-214 L Results gre ater than 46684-1) 1651 U/L may no t be reliable due to matrix effect w ith extended diluti on as it exceeds the director college's recommended diallo it. Caution should be exercised when interpreting diaz ch values and done in conjunction wit h clinical contex t. Lab Interpretation (test Abnormal code = 41166-8) [facility] HospitalLDH2023-05-02 15:28:25 Test Item Value Reference Range Interpretation Comments LDH (test code = 117 U/L 135-214 L Results gre ater than 88618-7) 1651 U/L may no t be reliable due to matrix effect w ith extended diluti on as it exceeds the director college's recommended diallo it. Caution should be exercised when interpreting diaz ch values and done in conjunction wit h clinical contex t. Lab Interpretation (test Abnormal code = 52584-2) [facility] HospitalFractionated Bxmpswlpq1395-81-73 15:23:35 Test Item Value Reference Range Interpretation Comments Bili Total (test 0.4 mg/dL <=1.2 Indocyanine Green (ICG) code = 1975-2) may cause fal sely elevated biliru bin results. Total and direct bilirubin must not be measured from s amples containing indo cyanine green. False el evation of total bilirubin can be seen in patient s with IgG concentrations above 28 g/L. Bili Direct (test <=0.3 Indocyanin e Green (ICG) code = 1967-10) may cause fal sely elevated biliru bin results. Total and direct bilirubin must not be measured from s amples containing indo cyanine green. Bili Indirect (test See Note 0.0-0.9 Unable t o calculate code = 1970-04) Indirect Bili odom result due to some par ameters are outside rep ortable range [facility] HospitalFractionated Liqltvvnk5248-51-93 15:23:35 Test Item Value Reference Range Interpretation Comments Bili Total (test 0.4 mg/dL <=1.2 Indocyanine Green (ICG) code = 1974-05) may cause fal sely elevated biliru bin results. Total and direct bilirubin must not be measured from s amples containing indo cyanine green. False el evation of total bilirubin can be seen in patient s with IgG concentrations above 28 g/L. Bili Direct (test <=0.3 Indocyanin e Green (ICG) code = 1967-10) may cause fal sely elevated biliru bin results. Total and direct bilirubin must not be measured from s amples containing indo cyanine green. Bili Indirect (test See Note 0.0-0.9 Unable t o calculate code = 1970-04) Indirect Bili odom result due to some par ameters are outside rep ortable range [facility] HospitalUric [id number] 15:23:34 Test Item Value Reference Range Interpretation Comments Uric Acid (test code = 3084-1) 4.1 mg/dL 2.4-5.[address] HospitalUric [id number] 15:23:34 Test Item Value Reference Range Interpretation Comments Uric Acid (test code = 3084-1) 4.1 mg/dL 2.4-5.[address] HospitalTotal [id number] 15:23:33 Test Item Value Reference Range Interpretation Comments Total Protein (test code = 2885-2) 7.1 g/dL 6.4-8.[address] HospitalTotal Mingdys2086-22-48 15:23:33 Test Item Value Reference Range Interpretation Comments Total Protein (test code = 2885-2) 7.1 g/dL 6.4-8.[address] HospitalPhosphorus Ccbht8829-22-59 15:23:32 Test Item Value Reference Range Interpretation Comments Phosphorus (test code = 2777-1) 2.8 mg/dL 2.5-4.[address] [facility] HospitalPhosphorus Oowfs4624-22-57 15:23:32 Test Item Value Reference Range Interpretation Comments Phosphorus (test code = 2777-1) 2.8 mg/dL 2.5-4.[address] HospitalCalcium Ihjqi7699-07-71 15:23:31 Test Item Value Reference Range Interpretation Comments Calcium Lvl (test code = 50217-8) 9.6 mg/dL 8.4-10.[address] [facility] HospitalCalcium [id number] 15:23:31 Test Item Value Reference Range Interpretation Comments Calcium Lvl (test code = 94338-2) 9.6 mg/dL 8.4-10.[address] [facility] HospitalALT2023-05-02 15:23:30 Test Item Value Reference Range Interpretation Comments ALT (test code = 1742-6) 13 U/L <=[address] HospitalALT2023-05-02 15:23:30 Test Item Value Reference Range Interpretation Comments ALT (test code = 1742-6) 13 U/L <=[address] HospitalBUN2023-05-02 15:23:29 Test Item Value Reference Range Interpretation Comments BUN (test code = 3094-0) 24 mg/dL 6-23 H Lab Interpretation (test code = Abnormal 95784-0) [facility] HospitalBUN2023-05-02 15:23:29 Test Item Value Reference Range Interpretation Comments BUN (test code = 3094-0) 24 mg/dL 6-23 H Lab Interpretation (test code = Abnormal 31561-2) [facility] HospitalGlucose Bpkry1430-83-23 15:23:28 Test Item Value Reference Range Interpretation Comments Glucose Level (test 97 mg/dL 70-99 Effectiv e 11/04/15, the code = 2345-7) glucose refer ence intervals have been updated based o n [place] [employer] inocencio delines (Standards of edical Care in Diabete s 2016. Diabetes Care 2 016; 39: S13-S22).Fastin g blood glucose:Normal: 70-99 mg/dLImpaired f asting glucose (increa sed risk for diabetes or pre-diabetes): 100-125 mg/dLDiabetes m ellitus: >/=126 mg/dL Ra ndom blood glucose:N ormal: 70-199 mg/dLNot e: Random glucose >100 mg /dL is associated with increased risk for diabetes [facility] HospitalGlucose [id number] 15:23:28 Test Item Value Reference Range Interpretation Comments Glucose Level (test 97 mg/dL 70-99 Effectiv e 11/04/15, the code = 2345-7) glucose refer ence intervals have been updated based o n [place] [employer] inocencio delines (Standards of edical Care in Diabete s 2016. Diabetes Care 2 016; 39: S13-S22).Fastin g blood glucose:Normal: 70-99 mg/dLImpaired f asting glucose (increa sed risk for diabetes or pre-diabetes): 100-125 mg/dLDiabetes m ellitus: >/=126 mg/dL Ra ndom blood glucose:N ormal: 70-199 mg/dLNot e: Random glucose >100 mg /dL is associated with increased risk for diabetes [facility] HospitalElectrolyte [id number] 15:23:22 Test Item Value Reference Range Interpretation Comments Sodium Lvl (test code = 133 See_Comment L [Au tomated message] 2951-2) The system [employer] generated this result transmitted ref erence range: 136 - 14 5 mEq/L. The refe rence range was not u sed to interpret this result as normal/abnor mal. Potassium Lvl (test code 4.1 See_Comment [A utomated message] = 2823-3) The system [employer] generated this result transmitted ref erence range: 3.5 - 5. 1 mEq/L. The refe rence range was not u sed to interpret this result as normal/abnor mal. Chloride (test code = 96 See_Comment L [Auto mated message] ) The system [employer] generated this result transmitted ref erence range: 98 - 107 mEq/L. The refe rence range was not u sed to interpret this result as normal/abnor mal. CO2 (test code = 2027-12) 28 See_Comment [A utomated message] The system [employer] generated this result transmitted ref erence range: 22 - 29 mEq/L. The reference r josette was not used to interpret this result as normal/abnor mal. Anion Gap (test code = 9 See_Comment [Aut omated message] 78505-7) The system [employer] generated this result transmitted ref erence range: 4 - 14 m Eq/L. The reference r josette was not used to interpret this result as normal/abnor mal. Lab Interpretation (test Abnormal code = 47654-5) [facility] HospitalElectrolyte [id number] 15:23:22 Test Item Value Reference Range Interpretation Comments Sodium Lvl (test code = 133 See_Comment L [Au tomated message] 5691-2) The system [employer] generated this result transmitted ref erence range: 136 - 14 5 mEq/L. The refe rence range was not u sed to interpret this result as normal/abnor mal. Potassium Lvl (test code 4.1 See_Comment [A utomated message] = 2103-3) The system [employer] generated this result transmitted ref erence range: 3.5 - 5. 1 mEq/L. The refe rence range was not u sed to interpret this result as normal/abnor mal. Chloride (test code = 96 See_Comment L [Auto mated message] ) The system [employer] generated this result transmitted ref erence range: 98 - 107 mEq/L. The refe rence range was not u sed to interpret this result as normal/abnor mal. CO2 (test code = 2027-12) 28 See_Comment [A utomated message] The system [employer] generated this result transmitted ref erence range: 22 - 29 mEq/L. The reference r josette was not used to interpret this result as normal/abnor mal. Anion Gap (test code = 9 See_Comment [Aut omated message] 13259-3) The system [employer] generated this result transmitted ref erence range: 4 - 14 m Eq/L. The reference r josette was not used to interpret this result as normal/abnor mal. Lab Interpretation (test Abnormal code = 59618-7) [facility] HospitalGlomerular Filtration Rate 2022-08-09 15:23:13 Test Item Value Reference Range Interpretation Comments eGFR (test code = 46 See_[place] [address]-3) calculated with the 2020 CKD-EPI cr eatinine equation using creatinine, pat ient's age, and sex fo r adults 18 years of age and older. Other fa ctors, especially musc le mass, may affect accu racy and need to be considered.Acco rding to the Kidney Dise ase: Improving Globa l Outcomes (KDIGO ) CKD Work Group 2012 Clinical Practi ce Guideline, marine chronometer assembler keira kidney disease (CKD) is defined as [...] . Lab Interpretation Abnormal (test code = 98824-9) [facility] HospitalGlomerular Filtration Rate 2022-08-09 15:23:13 Test Item Value Reference Range Interpretation Comments eGFR (test code = 46 See_Comment L [place] [address]16-7) calculated with the 2020 CKD-EPI cr eatinine equation using creatinine, pat ient's age, and sex fo r adults 18 years of age and older. Other fa ctors, especially musc le mass, may affect accu racy and need to be considered.Acco rding to the Kidney Dise ase: Improving Globa l Outcomes (KDIGO ) CKD Work Group 2012 Clinical Practi ce Guideline, marine chronometer assembler keira kidney disease (CKD) is defined as the abnormalities o f kidney structure or fu nction, present for mor e than 3 months, with implications fo r health. CKD gatito uld be classified by c darell, GFR category, a nd albuminuria cat egory. [...] . Lab Interpretation Abnormal (test code = 45674-1) [facility] HospitalMagnesium Kshvl6036-30-12 15:23:12 Test Item Value Reference Range Interpretation Comments Magnesium (test code = 19839-0) 2.0 mg/dL 1.6-2.[address] HospitalMagnesium Htdcy0780-99-96 15:23:12 Test Item Value Reference Range Interpretation Comments Magnesium (test code = 07252-7) 2.0 mg/dL 1.6-2.[address] HospitalAlkaline Ccalyvwvlsc9931-04-53 15:23:11 Test Item Value Reference Range Interpretation Comments Alk Phos (test code = 6768-6) 92 U/L 35-[address] HospitalAlkaline Rbjuovwejdo4635-71-65 15:23:11 Test Item Value Reference Range Interpretation Comments Alk Phos (test code = 6768-6) 92 U/L 35-[address] [address] HospitalAlbumin Aukma5979-48-10 15:23:10 Test Item Value Reference Range Interpretation Comments Albumin Lvl (test code 4.3 See_Comment [Aut omated message] The = 1750-10) system which ge nerated this result tra nsmitted reference range : 3.5 - 5.2 gm/dL. The refe rence range was not used to interpret this result as normal/abnormal . [facility] HospitalAlbumin [id number] 15:23:10 Test Item Value Reference Range Interpretation Comments Albumin Lvl (test code 4.3 See_Comment [Aut omated message] The = 1750-10) system which ge nerated this result tra nsmitted reference range : 3.5 - 5.2 gm/dL. The refe rence range was not used to interpret this result as normal/abnormal . [facility] HospitalAspartate Aminotransferase 2022-08-09 15:23:09 Test Item Value Reference Range Interpretation Comments AST (test code = 1920-8) 15 U/L <=[address] HospitalAspartate Aminotransferase 2022-08-09 15:23:09 Test Item Value Reference Range Interpretation Comments AST (test code = 1920-8) 15 U/L <=[address] [facility].Serum Usagumioqy3269-09-20 15:23:07 Test Item Value Reference Range Interpretation Comments Creatinine (test code = 2160-0) 1.24 mg/dL 0.51-0.95 H Lab Interpretation (test code = Abnormal 64889-3) [facility].Serum Uduqwvkuza2373-80-69 15:23:07 Test Item Value Reference Range Interpretation Comments Creatinine (test code = 2160-0) 1.24 mg/dL 0.51-0.95 H Lab Interpretation (test code = Abnormal 94618-3) [facility] HospitalTotal Pvgjhe0438-94-83 14:53:57 Test Item Value Reference Range Interpretation Comments [...] = 5928) Start Date (test code = 08/08/2022 7382) End Date (test code = 08/09/202254821-4) U24 Comment (test code 0500a 1cont = 8547) Lab Interpretation Abnormal (test code = 55324-1) [facility] HospitalTotal Rzkcls0304-17-50 14:53:57 Test Item Value Reference Range Interpretation Comments [...] = 5928) Start Date (test code = 08/08/2022 7382) End Date (test code = 08/09/2022) U24 Comment (test code 0500a 1cont = 8547) Lab Interpretation Abnormal (test code = 53061-8) [facility] HospitalDifferential2023-05-02 14:31:32 Test Item Value Reference Range Interpretation Comments Neutrophil % (test code = 62.8 % 42.0-66.0 770-8) Lymphocyte % (test code = 25.8 % 24.0-44.0 736-9) Monocyte % (test code = 10.3 % 2.0-7.0 H 5905-5) Eosinophil % (test code = 0.6 % 1.0-4.0 L 713-8) Basophil % (test code = 0.4 % 0.0-1.0 706-2) IGRE % (test code = 0.1 % 0.0-0.4 IGRE % c ount 40794-7) includes Metamyelocytes, Myelocytes, and Promyelocytes. Neutrophil Abs (test code 4.53 K/uL 1.70-7.30 = 751-8) Lymphocyte Abs (test code 1.86 K/uL 1.00-4.80 = 731-0) Monocyte Abs (test code = 0.74 K/uL 0.08-0.70 H 742-7) Eosinophil Abs (test code 0.04 K/uL 0.04-0.40 = 711-2) Basophil Abs (test code = 0.03 K/uL 0.00-0.10 704-7) IG Abs (test code = 0.01 K/uL 0.00-0.04 87220-4) Lab Interpretation (test Abnormal code = 40428-3) [facility] HospitalDifferential2023-05-02 14:31:32 Test Item Value Reference Range Interpretation Comments Neutrophil % (test code = 62.8 % 42.0-66.0 770-8) Lymphocyte % (test code = 25.8 % 24.0-44.0 736-9) Monocyte % (test code = 10.3 % 2.0-7.0 H 5905-5) Eosinophil % (test code = 0.6 % 1.0-4.0 L 713-8) Basophil % (test code = 0.4 % 0.0-1.0 706-2) IGRE % (test code = 0.1 % 0.0-0.4 IGRE % c ount 52668-2) includes Metamyelocytes, Myelocytes, and Promyelocytes. Neutrophil Abs (test code 4.53 K/uL 1.70-7.30 = 751-8) Lymphocyte Abs (test code 1.86 K/uL 1.00-4.80 = 731-0) Monocyte Abs (test code = 0.74 K/uL 0.08-0.70 H 742-7) Eosinophil Abs (test code 0.04 K/uL 0.04-0.40 = 711-2) Basophil Abs (test code = 0.03 K/uL 0.00-0.10 704-7) IG Abs (test code = 0.01 K/uL 0.00-0.04 69172-6) Lab Interpretation (test Abnormal code = 00771-3) [facility].TRT3967-91-49 14:31:20 Test Item Value Reference Range Interpretation Comments WBC (test code = 7.2 K/uL 4.0-11.0 6690-2) RBC (test code = 789-8) 3.21 See_Comment L [Au tomated message] The system [employer] generated this result transmitted ref erence range: 4.00 - 5 .50 M/uL. The refer ence range was not u sed to interpret this result as normal/abnor mal. Hgb (test code = 718-7) 11.4 See_Comment L [Au tomated message] The system [employer] generated this result transmitted ref erence range: 12.0 - 1 6.0 gm/dL. The refe rence range was not u sed to interpret this result as normal/abnor mal. Hct (test code = 32.9 % 37.0-47.0 L 4544-3) MCV (test code = 787-2) 102 fL 82-98 H MCH (test code = 785-6) 35.5 pg 27.0-31.0 H MCHC (test code = 34.7 See_Comment [Automate d message] 786-4) The system [employer] generated this result transmitted ref erence range: 31.0 - 3 6.0 gm/dL. The refe rence range was not u sed to interpret this result as normal/abnor mal. RDW-SD (test code = 51.2 fL 35.1-46.3 H 26157-2) RDW-CV (test code = 13.5 % 12.0-15.5 788-0) Platelet count (test 290 K/uL 140-440 code = 777-3) MPV (test code = 10.4 fL 4.0-10.4 71690-4) INRBC (test code = 0.0 % <=0.0 The INRBC (instrument 97839-2) NRBC) value ref lects the enumeration of nucleated red b lood cells contained in a 200uL sampleof whole blood analyzed by the instrument. Thi s value maydiffer from the NRBC value repo rted in a manual differential,wh ich is based on a 100 cell differential. Lab Interpretation Abnormal (test code = 50797-8) [facility] [place].OUG8157-18-84 14:31:20 Test Item Value Reference Range Interpretation Comments WBC (test code = 7.2 K/uL 4.0-11.0 6690-2) RBC (test code = 789-8) 3.21 See_Comment L [Au tomated message] The system [employer] generated this result transmitted ref erence range: 4.00 - 5 .50 M/uL. The refer ence range was not u sed to interpret this result as normal/abnor mal. Hgb (test code = 718-7) 11.4 See_Comment L [Au tomated message] The system [employer] generated this result transmitted ref erence range: 12.0 - 1 6.0 gm/dL. The refe rence range was not u sed to interpret this result as normal/abnor mal. Hct (test code = 32.9 % 37.0-47.0 L 4544-3) MCV (test code = 787-2) 102 fL 82-98 H MCH (test code = 785-6) 35.5 pg 27.0-31.0 H MCHC (test code = 34.7 See_Comment [Automate d message] 786-4) The system [employer] generated this result transmitted ref erence range: 31.0 - 3 6.0 gm/dL. The refe rence range was not u sed to interpret this result as normal/abnor mal. RDW-SD (test code = 51.2 fL 35.1-46.3 H 44634-5) RDW-CV (test code = 13.5 % 12.0-15.5 788-0) Platelet count (test 290 K/uL 140-440 code = 777-3) MPV (test code = 10.4 fL 4.0-10.4 63628-1) INRBC (test code = 0.0 % <=0.0 The INRBC (instrument 69900-7) NRBC) value ref lects the enumeration of nucleated red b lood cells contained in a 200uL sampleof whole blood analyzed by the instrument. Thi s value maydiffer from the NRBC value repo rted in a manual differential,wh ich is based on a 100 cell differential. Lab Interpretation Abnormal (test code = 99833-0) [facility] [place]HEP[place] PAN[place], [id number] 11:38:39 Test Item Value Reference Range Interpretation Comments HEPATITIS A IgM (test NON-REACTIVE NON-REACTIVE code = 58049) HEPATITIS B CORE IgM NON-REACTIVE NON-REACTIVE (test code = 4644) HEPATITIS B SURF AG NON-REACTIVE NON-REACTIVE (test code = 2739) HEPATITIS C ANTIBODY NON-REACTIVE NON-REACTIVE (test code = 4675) INTERPRETATION (NOTE) Hepatitis A HEPATITIS A: (test serology shows no code = 2552) evidence of acu te hepatitis A. INTERPRETATION (NOTE) Hepatitis B HEPATITIS B: (test serology shows no code = 71563) evidence of ac [place] hepatitis B and no indication of exposure to hepatitis B vir us in the previous si xto eight months. INTERPRETATION (NOTE) Hepatitis C HEPATITIS C: (test serology shows no code = 42130) evidence of ex posure to hepatitisC v irus at this time. I t can take up to 12 m onths after exposure tothe hepatitis C vir us for antibodies to become detectab le in the blood in ce rtain patients. [facility] has important pathology staff changes effecti ve 06/08/2022. New pathology staff will provide uninterrupted, excellent patie nt care and clinic al consultation. S ee URL: [email or web address] ESS OTHERWISE INDIC ATED, ALL TESTING PERFORMED AT [facility] [employer], [facility]. [address] [place] [address] [facility] SYSTEMMaria E PINTO DIRECTOR: Candace NOYOLA RASHEL NUMBER [id number] [place]. [id number] LIPID [id number] 05:26:13 Test Item Value Reference Range Interpretation Comments CHOLESTEROL (test 139 MG/DL <200 code = 2210) TRIGLYCERIDES (test 228 MG/DL <150 H code = 2232) HDL CHOLESTEROL (test 62 MG/DL >39 code = 2220) CALC LDL CHOL (test 49 MG/DL <100 NOTE: C ALCULATED LDL code = 2237) IS BASED ON BLANCA-CHOI METHOD WHICHINCLUDES ADJUSTABLE TRIGLYCERIDE:VL DL CHOLESTEROL RAT IO.THIS FACTOR VARIES B Y MEASURED TRIGLY CERIDE AND NON-HDLCHOL ESTEROL CONCENTRATIONS WITH INCREASED CALCU LATED LDL SEENIN HIGH ER TRIGLYCERIDE OR LOWER NON-HDL SPECIME NS. FOR MOREINFORMATION , SEE CLIENT ANNOUNCE MENT AT [email or web address] [email or web address] RATIO LDL/HDL 0.79 RATIO <3.22 (test code = 2238) COMPREHENSIVE METABOLIC [id number] 05:26:13 Test Item Value Reference Range Interpretation Comments GLUCOSE (test code = 84 MG/DL 70-99 2216) BUN (test code = 22 MG/DL 8-2207) CREATININE (test 1.30 MG/DL 0.60-1.30 code = 2213) eGFR (2020 CKD-EPI) 43 ML/MIN/1.73 >60 L (test code = 84416) CALC BUN/CREAT (test 17 RATIO 6-28 code = 223) SODIUM (test code = 134 MEQ/L 173-161 7298) POTASSIUM (test code 3.9 MEQ/L 3.5-5.4 = 2227) CHLORIDE (test code 95 MEQ/L 95-107 = 2214) CARBON DIOXIDE (test 26 MEQ/L 19-31 code = 2205) CALCIUM (test code = 9.4 MG/DL 8.5-10.5 2208) PROTEIN, TOTAL (test 6.7 G/DL 6.1-8.3 code = 2228) ALBUMIN (test code = 4.4 G/DL 3.5-5.2 2200) CALC GLOBULIN (test 2.3 G/DL 1.9-3.7 code = 2239) CALC A/G RATIO (test 1.9 RATIO 1.0-2.6 code = 2233) BILIRUBIN, TOTAL 0.2 MG/DL See_Comment [Automated message] (test code = 2206) The syste m which generated this result transmit jenny reference range : <=1.2. The refe rence range was not u sed to interpret th is result as normal/abnormal . ALKALINE PHOSPHATASE 94 U/L 40-142 (test code = 2203) AST (test code = 14 U/L 9-40 2217) ALT (test code = 12 U/L 5-40 2218) HEMOGLOBIN [id number] 04:56:11 Test Item Value Reference Range Interpretation Comments HEMOGLOBIN A1c (test code = 41925) 5.6 % 4.2-5.6 CBC W/AUTO DIFF WITH [id number] 03:51:47 Test Item Value Reference Range Interpretation Comments WBC (test code = 7.8 K/UL 3.5-11.0 1001) RBC (test code = 3.33 M/UL 3.80-5.40 L 1002) HEMOGLOBIN (test code 12.3 G/DL 11.5-15.5 = 1003) HEMATOCRIT (test code 36.4 % 34.0-45.0 = 1004) MCV (test code = 109.3 fL 80.0-99.0 H 1005) MCH (test code = 36.9 PG 25.0-33.0 H 1006) MCHC (test code = 33.8 G/DL 31.0-36.0 1007) RDW (test code = 13.4 % 11.5-15.0 1038) NEUTROPHILS (test 61.1 % code = 1008) LYMPHOCYTES (test 26.9 % code = 1010) MONOCYTES (test code 10.9 % = 1011) EOSINOPHILS (test 0.4 % code = 1012) BASOPHILS (test code 0.4 % = 1013) IMMATURE GRANULOCYTES 0.3 % (test code = 1036) NUCLEATED RBCS (test 0.0 /100 WBC'S See_Comment [Aut omated code = 1065) message] The sy stem which generated this result transmitted reference range : 0.0. The refere nce range was not u sed to interpret th is result as normal/abnormal . PLATELET COUNT (test 299 K/UL 130-400 code = 1015) ABSOLUTE NEUTROPHILS 4.77 K/UL 1.50-7.50 (test code = 1066) ABSOLUTE LYMPHOCYTES 2.10 K/UL 1.00-4.00 (test code = 1067) ABSOLUTE MONOCYTES 0.85 K/UL 0.20-1.00 (test code = 1068) ABSOLUTE EOSINOPHILS 0.03 K/UL 0.00-0.50 (test code = 1040) ABSOLUTE BASOPHILS 0.03 K/UL 0.00-0.20 (test code = 1069) ABS IMMATURE 0.02 K/UL 0.00-0.10 GRANULOCYTES (test code = 1020) ABS NUCLEATED RBCS 0.00 K/UL 0.00-0.11 (test code = 70656) VITAMIN B 12 AND FOLIC [id number] 06:12:35 Test Item Value Reference Range Interpretation Comments VITAMIN B-12 (test 312 PG/ML 200-950 code = 2840) FOLIC ACID (test 8.6 UG/L SEE BELOW INTE RPRETIVE code = 5508) RANGES DE FICIENCY . . . . . . . . . . . . . . . UG/L <4.0 POSSIBLE DEFICIENCY. . . . . . . . . . . UG/L 4. 0-5.9 SUFFICIENT . . . . . . . . . . . . . . . UG/L >=6.0 TSH, THIRD [id number] 06:12:35 Test Item Value Reference Range Interpretation Comments TSH, THIRD GENERATION (test code 1.030 UIU/ML 0.400-4.100 = 2821) RETICULOCYTE WITH [id number] 05:57:30 Test Item Value Reference Range Interpretation Comments RETICULOCYTE COUNT 1.89 % 0.80-2.40 (test code = 1018) ABSOLUTE RETICULOCYTE 59.2 K/UL 32.0-105.[address] has important (test code = 08509) patholog y staff changes effecti ve 06/08/2022. New pathology staff will provide uninter rupted, excellent patie nt care and clinical consultation. S ee URL: [email or web address]. UNLES S OTHERWISE INDIC ATED, ALL TESTING PER FORMED AT [facility], [address] [address] [facility] DIRECTOR: MARIELLA TOBIN M.D. CLIA NUMBER [id number] CAP ACCREDITATION N O. [id number] 04:42:18 Test Item Value Reference Range Interpretation Comments MAGNESIUM (test code = 2.0 MG/DL 1.6-2.6 CPL has important 6) pathology staff changes effecti ve 06/08/2022. New pathology staff will provide uninter rupted, excellent patie nt care and clinical consultation. S ee URL: [email or web address]. UNLES S OTHERWISE INDIC ATED, ALL TESTING PER FORMED AT [facility] [employer], [address] CLIA: [id number], CAP: COMPREHENSIVE METABOLIC [id number] 03:46:54 Test Item Value Reference Range Interpretation Comments GLUCOSE (test code = 83 MG/DL 70-99 2216) BUN (test code = 22 MG/DL 8-23 2207) CREATININE (test 1.06 MG/DL 0.60-1.30 code = 2214) eGFR (2020 CKD-EPI) 55 ML/MIN/1.73 >60 L The N KF-ASN (test code = 52576) Taskforc e recommends use of Cystatin C to confirm eGFR inadults at ris k for CKD. [facility] offers eGFR with Cystatin C-Creatinineusi ng the 2020 CKD-EP I eGFR_creat-cyst at equation (order code 3057) toincreas e the accuracy of estimated GFR. For more informatio n, contactyour acc ount executive or se e announcement [email or web address] CALC BUN/CREAT (test 21 RATIO 6-28 code = 2235) SODIUM (test code = 141 MEQ/L 719-112 5048) POTASSIUM (test code 4.0 MEQ/L 3.5-5.4 = 2227) CHLORIDE (test code 102 MEQ/L 95-107 = 221) CARBON DIOXIDE (test 27 MEQ/L 19-31 code = 220) CALCIUM (test code = 10.0 MG/DL 8.5-10.5 2208) PROTEIN, TOTAL (test 7.0 G/DL 6.1-8.3 code = 2229) ALBUMIN (test code = 4.4 G/DL 3.5-5.2 2200) CALC GLOBULIN (test 2.6 G/DL 1.9-3.7 code = 2240) CALC A/G RATIO (test 1.7 RATIO 1.0-2.6 code = 2234) BILIRUBIN, TOTAL 0.3 MG/DL See_Comment [Automated message] (test code = 2207) The syste m which generated this result transmit jenny reference range : <=1.2. The refe rence range was not u sed to interpret th is result as normal/abnormal . ALKALINE PHOSPHATASE 93 U/L 40-142 (test code = 2204) AST (test code = 19 U/L 9-40 2217) ALT (test code = 15 U/L 5-40 2218) CBC W/AUTO DIFF WITH [id number] 03:24:59 Test Item Value Reference Range Interpretation Comments WBC (test code = 4.4 K/UL 3.5-11.0 1001) RBC (test code = 2.99 M/UL 3.80-5.40 L 1002) HEMOGLOBIN (test code 10.9 G/DL 11.5-15.5 L = 1003) HEMATOCRIT (test code 31.4 % 34.0-45.0 L = 1004) MCV (test code = 105.0 fL 80.0-99.0 H 1005) MCH (test code = 36.5 PG 25.0-33.0 H 1006) MCHC (test code = 34.7 G/DL 31.0-36.0 1007) RDW (test code = 15.5 % 11.5-15.0 H 1038) NEUTROPHILS (test 50.4 % code = 1008) LYMPHOCYTES (test 34.5 % code = 1010) MONOCYTES (test code 13.5 % = 1011) EOSINOPHILS (test 0.7 % code = 1012) BASOPHILS (test code 0.7 % = 1013) IMMATURE GRANULOCYTES 0.2 % (test code = 1036) NUCLEATED RBCS (test 0.0 /100 WBC'S See_Comment [Aut omated code = 1065) message] The sy stem which generated this result transmitted reference range : 0.0. The refere nce range was not u sed to interpret th is result as normal/abnormal . PLATELET COUNT (test 254 K/UL 130-400 code = 1015) ABSOLUTE NEUTROPHILS 2.24 K/UL 1.50-7.50 (test code = 1066) ABSOLUTE LYMPHOCYTES 1.53 K/UL 1.00-4.00 (test code = 1067) ABSOLUTE MONOCYTES 0.60 K/UL 0.20-1.00 (test code = 1068) ABSOLUTE EOSINOPHILS 0.03 K/UL 0.00-0.50 (test code = 1040) ABSOLUTE BASOPHILS 0.03 K/UL 0.00-0.20 (test code = 1069) ABS IMMATURE 0.01 K/UL 0.00-0.10 GRANULOCYTES (test code = 1020) ABS NUCLEATED RBCS 0.00 K/UL 0.00-0.11 (test code = 51498) Urine EDMAR Path [id number] 17:15:06UIFE Path IntThe follow-up urine protein immunofixation electrophoretic [...] Correlation with the clinical findings is recommended. [facility] [id number] 17:15:06UIFE Path IntThe follow-up urine protein immunofixation electrophoretic [...] Correlation with the clinical findings is recommended. [facility] [id number] 17:15:06UIFE Path IntThe follow-up urine protein immunofixation electrophoretic [...] Correlation with the clinical findings is recommended. [facility] EDMAR Path [id number] 17:15:06UIFE Path IntThe follow-up urine protein immunofixation electrophoretic patterns obtained with the use of antisera against IgG, IgA, IgM, bound kappa and bound lambda light chains, free kappa and free lambda light chains are suggestive of urinary light chain ladder patterns (kappa and lambda). The pres ence of a Bence-Liang proteinuria, however, cannot be completely ruled out by this study. Correlation with the clinical findings is recommended. [facility] ED[facility] Path [id number] 17:15:06UIFE Path IntThe follow-up urine protein immunofixation electrophoretic [...] Correlation with the clinical findings is recommended. [facility] [id number] 17:15:06UIFE Path IntThe follow-up urine protein immunofixation electrophoretic [...] Correlation with the clinical findings is recommended. [facility] [id number] 17:15:06UIFE Path IntThe follow-up urine protein immunofixation electrophoretic [...] Correlation with the clinical findings is recommended. [facility] [id number] 17:15:06UIFE Path IntThe follow-up urine protein immunofixation electrophoretic patterns obtained with the use of antisera against IgG, IgA, IgM, bound kappa and bound lambda light chains, free kappa and free lambda light chains are suggestive of urinary light chain ladder patterns (kappa and lambda). The pres ence of a Bence-Liang proteinuria, however, cannot be completely ruled out by this study. Correlation with the clinical findings is recommended. [facility] [id number] 17:15:06UIFE Path IntThe follow-up urine protein immunofixation electrophoretic [...] Correlation with the clinical findings is recommended. [facility] [id number] 17:15:05 Test Item Value Reference Range Interpretation Comments UIFE (test code = 7916) See Comment [facility] [id number] 17:15:05 Test Item Value Reference Range Interpretation Comments UIFE (test code = 7916) See Comment [facility] [id number] 17:15:05 Test Item Value Reference Range Interpretation Comments UIFE (test code = 7916) See Comment [facility] [id number] 17:15:05 Test Item Value Reference Range Interpretation Comments UIFE (test code = 7916) See Comment [facility] [id number] 17:15:05 Test Item Value Reference Range Interpretation Comments UIFE (test code = 7916) See Comment [facility] [id number] 17:15:05 Test Item Value Reference Range Interpretation Comments UIFE (test code = 7916) See Comment [facility] [id number] 17:15:05 Test Item Value Reference Range Interpretation Comments UIFE (test code = 7916) See Comment [facility] [id number] 17:15:05 Test Item Value Reference Range Interpretation Comments UIFE (test code = 7916) See Comment [facility] [id number] 17:15:05 Test Item Value Reference Range Interpretation Comments UIFE (test code = 7916) See Comment [facility] Prot Electrophoresis Path [id number] 17:15:04 Test Item Value Reference Range Interpretation Comments U ProE Path The follow-up urine Int (test protein code = electrophoretic BE VERLY 7803) pattern does not show [place] [id number] Dictated by: a Bence-Garth protein TRENTON SAAVEDRA MD - peak. [id number] Date/Time: 01.09 12:15 PM CDT Transcribed Date/Time: 01.09 12:15 PM CDTElectronical ly Signed By: MD Gary GIMENEZ 1018 4 on 02.04.2022 12:[address] Prot Electrophoresis Path [id number] 17:15:04 Test Item Value Reference Range Interpretation Comments U ProE Path The follow-up urine Int (test protein code = electrophoretic BE VERLY 7803) pattern does not show [place] [id number] Dictated by: a Ericce-Liang protein TRENTON SAAVEDRA MD - peak. [id number] Date/Time: 01.09 12:15 PM CDT Transcribed Date/Time: 01.09 12:15 PM CDTElectronical ly Signed By: MD Gary GIMENEZ 1018 4 on 02.04.2022 12:[address] [facility] Prot Electrophoresis Path [id number] 17:15:04 Test Item Value Reference Range Interpretation Comments U ProE Path The follow-up urine Int (test protein code = electrophoretic BE VERLY 7803) pattern does not show [place] [id number] Dictated by: a Ericce-Liang protein TRENTON SAAVEDRA MD - peak. [id number] Date/Time: 01.09 12:15 PM CDT Transcribed Date/Time: 01.09 12:15 PM CDTElectronical ly Signed By: MD Gary GIMENEZ 1018 4 on 02.04.2022 12:[address] Prot Electrophoresis Path [id number] 17:15:04 Test Item Value Reference Range Interpretation Comments U ProE Path The follow-up urine Int (test protein code = electrophoretic BE VERLY 7803) pattern does not show HANDY, [place] [id number] Dictated by: a Bence-Liang protein TRENTON SAAVEDRA MD - peak. [id number] Date/Time: 01.09 12:15 PM CDT Transcribed Date/Time: 01.09 12:15 PM CDTElectronical ly Signed By: MD Gary GIMENEZ 1018 4 on 02.04.2022 12:[address] [address] [facility] Prot Electrophoresis Path [id number] 17:15:04 Test Item Value Reference Range Interpretation Comments U ProE Path The follow-up urine Int (test protein code = electrophoretic BE VERLY 7803) pattern does not show HANDY, [place] [id number] Dictated by: a Bence-Liang protein MD Gary KILGORE peak. [id number] Date/Time: 01.09 12:15 PM CDT Transcribed Date/Time: 01.09 12:15 PM CDTElectronical ly Signed By: MD Gary GIMENEZ 1018 4 on 02.04.2022 12:[address] [address] [facility] Prot Electrophoresis Path [id number] 17:15:04 Test Item Value Reference Range Interpretation Comments U ProE Path The follow-up urine Int (test protein code = electrophoretic BE VERLY 7803) pattern does not show HANDY, [place] [id number] Dictated by: a Bence-Liang protein TRENTON SAAVEDRA MD - peak. [id number] Date/Time: 01.09 12:15 PM CDT Transcribed Date/Time: 01.09 12:15 PM CDTElectronical ly Signed By: MD Gary GIMENEZ8 4 on 02.04.2022 12:[address] Prot Electrophoresis Path [id number] 17:15:04 Test Item Value Reference Range Interpretation Comments U ProE Path The follow-up urine Int (test protein code = electrophoretic BE VERLY 7803) pattern does not show MD [place] - [place] [id number] Dictated by: a Bence-Liang protein TRENTON SAAVEDRA MD - peak. [id number] Date/Time: 01.09 12:15 PM CDT Transcribed Date/Time: 01.09 12:15 PM CDTElectronical ly Signed By: MD Gary GIMENEZ8 4 on 02.04.2022 12:[address] [address] [facility] Prot Electrophoresis Path [id number] 17:15:04 Test Item Value Reference Range Interpretation Comments U ProE Path The follow-up urine Int (test protein code = electrophoretic BE VERLY 7803) pattern does not show [place] [id number] Dictated by: a Ericce-Liang protein TRENTON SAAVEDRA MD - peak. [id number] Date/Time: 01.09 12:15 PM CDT Transcribed Date/Time: 01.09 12:15 PM CDTElectronical ly Signed By: MD Gary GIMENEZ 1018 4 on 02.04.2022 12:[address] [facility] Prot Electrophoresis Path [id number] 17:15:04 Test Item Value Reference Range Interpretation Comments U ProE Path The follow-up urine Int (test protein code = electrophoretic BE VERLY 7803) pattern does not show MD [place] - [place] [id number] Dictated by: a Bence-Liang protein BEVERRodolfo SAAVEDRA MD - peak. [id number] Date/Time: 01.09 12:15 PM CDT Transcribed Date/Time: 01.09 12:15 PM CDTElectronical ly Signed By: BRIAN SAAVEDRA MD - 1018 4 on 02.04.2022 12:[address] [facility] Elect[facility]oresis Urine 2022-02-04 17:15:03 Test Item Value Reference Range Interpretation Comments U Albumin % (test code = 7676) 36.7 % U Globulin% (test code = 8523) 63.3 % [facility] Urine 2022-02-04 17:15:03 Test Item Value Reference Range Interpretation Comments U Albumin % (test code = 7676) 36.7 % U Globulin% (test code = 8523) 63.3 % [facility] Urine 2022-02-04 17:15:03 Test Item Value Reference Range Interpretation Comments U Albumin % (test code = 7676) 36.7 % U Globulin% (test code = 8523) 63.3 % [facility] Urine 2022-02-04 17:15:03 Test Item Value Reference Range Interpretation Comments U Albumin % (test code = 7676) 36.7 % U Globulin% (test code = 8523) 63.3 % [facility] Urine 2022-02-04 17:15:03 Test Item Value Reference Range Interpretation Comments U Albumin % (test code = 7676) 36.7 % U Globulin% (test code = 8523) 63.3 % [facility] Urine 2022-02-04 17:15:03 Test Item Value Reference Range Interpretation Comments U Albumin % (test code = 7676) 36.7 % U Globulin% (test code = 8523) 63.3 % [facility] Urine 2022-02-04 17:15:03 Test Item Value Reference Range Interpretation Comments U Albumin % (test code = 7676) 36.7 % U Globulin% (test code = 8523) 63.3 % [facility] Urine 2022-02-04 17:15:03 Test Item Value Reference Range Interpretation Comments U Albumin % (test code = 7676) 36.7 % U Globulin% (test code = 8523) 63.3 % [facility] Urine 2022-02-04 17:15:03 Test Item Value Reference Range Interpretation Comments U Albumin % (test code = 7676) 36.7 % U Globulin% (test code = 8523) 63.3 % [facility] [id number] 16:47:45 EDMAR Path IntThe follow-up serum protein immunofixation electrophoretic patterns obtained with the use of antisera against IgG, IgA, IgM, bound kappa and bound lambda light chains are suggestive of an oligoclonal gammopathy. Follow-up serum protein electrophoretic studies and correlation with the clinical findings, however, are suggested. [facility] Path [id number] 16:47:45IFE Path IntThe follow- up serum protein immunofixation electrophoretic patterns obtained with the use of antisera against IgG, IgA, IgM, bound kappa and bound lambda light chains are suggestive of an oligoclonal gammopathy. Follow-up serum protein electrophoretic studies and correlation with the clinical findings, however, are suggested. [facility] Path [id number] 16:47:45IFE Path IntThe follow-up serum protein immunofixation electrophoretic patterns obtained with the use of antisera against IgG, IgA, IgM, bound kappa and bound lambda light chains are suggestive of an oligoclonal gammopathy. Follow-up serum protein electrophoretic studies and correlation with the clinical findings, however, are suggested. [facility] [id number] 16:47:45 EDMAR Path IntThe follow-up serum protein immunofixation electrophoretic patterns obtained with the use of antisera against IgG, IgA, IgM, bound kappa and bound lambda light chains are suggestive of an oligoclonal gammopathy. Follow-up serum protein electrophoretic studies and correlation with the clinical findings, however, are suggested. [facility] Path [id number] 16:47:45IFE Path IntThe follow- up serum protein immunofixation electrophoretic patterns obtained with the use of antisera against IgG, IgA, IgM, bound kappa and bound lambda light chains are suggestive of an oligoclonal gammopathy. Follow-up serum protein electrophoretic studies and correlation with the clinical findings, however, are suggested. [facility]ONAUn[facility] HospitalIFE Path [id number] 16:47:45IFE Path IntThe follow-up serum protein immunofixation electrophoretic patterns obtained with the use of antisera against IgG, IgA, IgM, bound kappa and bound lambda light chains are suggestive of an oligoclonal gammopathy. Follow-up serum protein electrophoretic studies and correlation with the clinical findings, however, are suggested. [facility] Path [id number] 16:47:45 EDMAR Path IntThe follow-up serum protein immunofixation electrophoretic patterns obtained with the use of antisera against IgG, IgA, IgM, bound kappa and bound lambda light chains are suggestive of an oligoclonal gammopathy. Follow-up serum protein electrophoretic studies and correlation with the clinical findings, however, are suggested. [facility]ONAUnQu[facility] HospitalIFE Path [id number] 16:47:45IFE Path IntThe follow- up serum protein immunofixation electrophoretic patterns obtained with the use of antisera against IgG, IgA, IgM, bound kappa and bound lambda light chains are suggestive of an oligoclonal gammopathy. Follow-up serum protein electrophoretic studies and correlation with the clinical findings, however, are suggested. [facility] Path [id number] 16:47:45IFE Path IntThe follow-up serum protein immunofixation electrophoretic patterns obtained with the use of antisera against IgG, IgA, IgM, bound kappa and bound lambda light chains are suggestive of an oligoclonal gammopathy. Follow-up serum protein electrophoretic studies and correlation with the clinical findings, however, are suggested. [facility] Path [id number] 16:47:45 EDMAR Path IntThe follow-up serum protein immunofixation electrophoretic patterns obtained with the use of antisera against IgG, IgA, IgM, bound kappa and bound lambda light chains are suggestive of an oligoclonal gammopathy. Follow-up serum protein electrophoretic studies and correlation with the clinical findings, however, are suggested. [facility]ONAUnQu[facility] HospitalIFE Path [id number] 16:47:45IFE Path IntThe follow- up serum protein immunofixation electrophoretic patterns obtained with the use of antisera against IgG, IgA, IgM, bound kappa and bound lambda light chains are suggestive of an oligoclonal gammopathy. Follow-up serum protein electrophoretic studies and correlation with the clinical findings, however, are suggested. [facility]ONAUnQu[facility] HospitalIFE 2022-02-04 16:47:44 Test Item Value Reference Range Interpretation Comments EDMAR (test code = 5948) See Comment [facility]2022-[facility]-28 16:47:44 Test Item Value Reference Range Interpretation Comments EDMAR (test code = 5948) See Comment [facility]2022-10-28 16:47:44 Test Item Value Reference Range Interpretation Comments EDMAR (test code = 5948) See Comment [facility]2022-10-28 16:47:44 Test Item Value Reference Range Interpretation Comments EDMAR (test code = 5948) See Comment [facility]2022-10-28 16:47:44 Test Item Value Reference Range Interpretation Comments EDMAR (test code = 5948) See Comment [facility]2022-10-28 16:47:44 Test Item Value Reference Range Interpretation Comments EDMAR (test code = 5948) [facility] 16:47:44 Test Item Value Reference Range Interpretation Comments EDMAR (test code = 5948) See Comment [facility] 16:47:44 Test Item Value Reference Range Interpretation Comments EDMAR (test code = 5948) See Comment [facility] 16:47:44 Test Item Value Reference Range Interpretation Comments EDMAR (test code = 5948) See Comment [facility] Path Review 2022-02-04 16:47:43 Test Item Value Reference Range Interpretation Comments SPE Path The follow-up serum Interp (test protein code = 7285) electrophoretic BE VERLY pattern does not show HANDMD Davis - definitive evidence [id number] tated by: of an M-protein peak. MD Gary KILGORE [id number] Date/Time: 01.09 11:47 AM CDT Transcribed Date/Time: 01.09 11:47 AM CDTElectronical ly Signed By: MD Gary GIMENEZ 1018 4 on 02.04.2022 11:[address] [facility] Path Review 2022-02-04 16:47:43 Test Item Value Reference Range Interpretation Comments SPE Path The follow-up serum Interp (test protein code = 7285) electrophoretic BE VERLY pattern does not show HANDMD Davis - definitive evidence [id number] tated by: of an M-protein peak. MD Gary KILGORE [id number] Date/Time: 01.09 11:47 AM CDT Transcribed Date/Time: 01.09 11:47 AM CDTElectronical ly Signed By: MD Gary GIMENEZ 1018 4 on 02.04.2022 11:[address] [facility] Path Review 2022-02-04 16:47:43 Test Item Value Reference Range Interpretation Comments SPE Path The follow-up serum Interp (test protein code = 7285) electrophoretic BE VERLY pattern does not show HANDY, MD - definitive evidence [id number] tated by: of an M-protein peak. MD Gary KILGORE [id number] Date/Time: 01.09 11:47 AM CDT Transcribed Date/Time: 01.09 11:47 AM CDTElectronical ly Signed By: MD Gary GIMENEZ8 4 on 02.04.2022 11:[address] [facility] Path Review 2022-02-04 16:47:43 Test Item Value Reference Range Interpretation Comments SPE Path The follow-up serum Interp (test protein code = 7285) electrophoretic BE VERLY pattern does not show HANDY, MD - definitive evidence [id number] tated by: of an M-protein peak. MD Gary KILGORE [id number] Date/Time: 01.09 11:47 AM CDT Transcribed Date/Time: 01.09 11:47 AM CDTElectronical ly Signed By: MD Gary GIMENEZ8 4 on 02.04.2022 11:[address] [facility] Review 2022-02-04 16:47:43 Test Item Value Reference Range Interpretation Comments SPE Path The follow-up serum Interp (test protein code = 7285) electrophoretic BE VERLY pattern does not show HANDY, MD - definitive evidence 14136Dfj tated by: of an M-protein peak. MD Gary KILGORE [id number] Date/Time: 01.09 11:47 AM CDT Transcribed Date/Time: 01.09 11:47 AM CDTElectronical ly Signed By: MD Gary GIMENEZ 4 on 02.04.2022 11:[address] [facility] Path Review 2022-02-04 16:47:43 Test Item Value Reference Range Interpretation Comments SPE Path The follow-up serum Interp (test protein code = 7285) electrophoretic BE VERLY pattern does not show MD KERI - definitive evidence [id number] tated by: of an M-protein peak. MD Gary KILGORE [id number] Date/Time: 01.09 11:47 AM CDT Transcribed Date/Time: 01.09 11:47 AM CDTElectronical ly Signed By: MD Gary GIMENEZ 4 on 02.04.2022 11:[address] [facility] Path Review 2022-02-04 16:47:43 Test Item Value Reference Range Interpretation Comments SPE Path The follow-up serum Interp (test protein code = 7285) electrophoretic BE VERLY pattern does not show MD KERI - definitive evidence [id number] tated by: of an M-protein peak. MD Gary KILGORE [id number] Date/Time: 01.09 11:47 AM CDT Transcribed Date/Time: 01.09 11:47 AM CDTElectronical ly Signed By: MD Gary GIMENEZ 1018 4 on 02.04.2022 11:[address] [facility] Path Review 2022-02-04 16:47:43 Test Item Value Reference Range Interpretation Comments SPE Path The follow-up serum Interp (test protein code = 7285) electrophoretic BE VERLY pattern does not show HANDY, MD - definitive evidence 60941Lww tated by: of an M-protein peak. MD Gary KILGORE [id number] Date/Time: 01.09 11:47 AM CDT Transcribed Date/Time: 01.09 11:47 AM CDTElectronical ly Signed By: MD Gary GIMENEZ 4 on 02.04.2022 11:[address] [facility] Path Review 2022-02-04 16:47:43 Test Item Value Reference Range Interpretation Comments SPE Path The follow-up serum Interp (test protein code = 7285) electrophoretic BE VERLY pattern does not show HANDY, MD - definitive evidence 66160Ngd tated by: of an M-protein peak. MD Gary KILGORE [id number] Date/Time: 01.09 11:47 AM CDT Transcribed Date/Time: 01.09 11:47 AM CDTElectronical ly Signed By: MD Gary GIMENEZ8 4 on 02.04.2022 11:[address] [facility] Path Review 2022-02-04 16:47:43 Test Item Value Reference Range Interpretation Comments SPE Path The follow-up serum Interp (test protein code = 7285) electrophoretic BE VERLY pattern does not show HANDY, MD - definitive evidence 05830Zeo tated by: of an M-protein peak. MD Gary KILGORE [id number] Date/Time: 01.09 11:47 AM CDT Transcribed Date/Time: 01.09 11:47 AM CDTElectronical ly Signed By: MD Gary GIMENEZ 1018 4 on 02.04.2022 11:[address] [facility] Path Review 2022-02-04 16:47:43 Test Item Value Reference Range Interpretation Comments SPE Path The follow-up serum Interp (test protein code = 7285) electrophoretic BE VERLY pattern does not show MD KERI - definitive evidence 16434Zzh tated by: of an M-protein peak. MD Gary KILGORE [id number] Date/Time: 01.09 11:47 AM CDT Transcribed Date/Time: 01.09 11:47 AM CDTElectronical ly Signed By: MD Gary GIMENEZ8 4 on 02.04.2022 11:4 7 AM [facility] 2022-02-04 16:47:42 Test Item Value Reference Range Interpretation Comments TOT PROTEIN (test code 6.6 See_Comment [Aut omated message] The = 5855) system which ge nerated this result tra nsmitted reference range : 6.4 - 8.3 gm/dL. The reference range was not u sed to interpret this result as normal/abnormal . Albumin (test code = 3.6 See_Comment [Autom ated message] The 4376) system which ge nerated this result tra nsmitted reference range : 3.6 - 5.4 gm/dL. The reference range was not u sed to interpret this result as normal/abnormal . Alpha 1 Globulin (test 0.4 See_Comment [Aut omated message] The code = 3678) system which ge nerated this result tra [...] to interpret this result as normal/abnormal . [facility] 2022-02-04 16:47:42 Test Item [...] to interpret this result as normal/abnormal . [facility] 2022-02-04 16:47:42 Test Item Value Reference Range Interpretation Comments TOT PROTEIN (test code 6.6 See_Comment [Aut omated message] The = 2917) system which ge nerated this result tra nsmitted reference range : 6.4 - 8.3 gm/dL. The reference range was not u sed to interpret this result as normal/abnormal . Albumin (test code = 3.6 See_Comment [Autom ated message] The 3164) system which ge nerated this result tra [...] to interpret this result as normal/abnormal . [facility] 2022-02-04 16:47:42 Test Item Value Reference Range Interpretation Comments TOT PROTEIN (test code 6.6 See_Comment [Aut omated message] The = 8545) system which ge nerated this result tra nsmitted reference range : 6.4 - 8.3 gm/dL. The reference range was not u sed to interpret this result as normal/abnormal . Albumin (test code = 3.6 See_Comment [Autom ated message] The 7760) system which ge nerated this result tra [...] to interpret this result as normal/abnormal . [facility] 2022-02-04 16:47:42 Test Item [...] to interpret this result as normal/abnormal . [facility] 2022-02-04 16:47:42 Test Item Value [...] to interpret this result as normal/abnormal . [facility] 2022-02-04 16:47:42 Test Item Value [...] 0.0 See_Comment [Au tomated message] The = 9284) system which ge nerated this result tra nsmitted reference range : 0.0 - 0.0 gm/dL. The reference range was not u sed to interpret this result as normal/abnormal . [facility] 2022-02-04 16:47:42 Test Item Value Reference Range Interpretation Comments TOT PROTEIN (test code 6.6 See_Comment [Aut omated message] The = 0645) system which ge nerated this result tra nsmitted reference range : 6.4 - 8.3 gm/dL. The reference range was not u sed to interpret this result as normal/abnormal . Albumin (test code = 3.6 See_Comment [Autom ated message] The 9735) system which ge nerated this result tra [...] 0.0 See_Comment [Au tomated message] The = 9113) system which ge nerated this result tra nsmitted reference range : 0.0 - 0.0 gm/dL. The reference range was not u sed to interpret this result as normal/abnormal . [facility] 2022-02-04 16:47:42 Test Item Value [...] to interpret this result as normal/abnormal . [facility] [place]Free Lambda Ratio 2022-01-26 20:32:58 Test Item Value Reference Range Interpretation Comments FKap/FLam RT (test code = 5566) 1.43 0.26-1.[address] [address] [place]Free Lambda Ratio 2022-01-26 20:32:58 Test Item Value Reference Range Interpretation Comments FKap/FLam RT (test code = 5566) 1.43 0.26-1.[address] [facility] [place]/Free Lambda Ratio 2022-01-26 20:32:58 Test Item Value Reference Range Interpretation Comments FKap/FLam RT (test code = 5566) 1.43 0.26-1.[address] [address] [place]/Free Lambda Ratio 2022-01-26 20:32:58 Test Item Value Reference Range Interpretation Comments FKap/FLam RT (test code = 5566) 1.43 0.26-1.[address] [address] [facility] [place]/Free Lambda Ratio 2022-01-26 20:32:58 Test Item Value Reference Range Interpretation Comments FKap/FLam RT (test code = 5566) 1.43 0.26-1.[address] [facility] [place]/Free Lambda Ratio 2022-01-26 20:32:58 Test Item Value Reference Range Interpretation Comments FKap/FLam RT (test code = 5566) 1.43 0.26-1.[address] [facility] [place]/Free Lambda Ratio 2022-01-26 20:32:58 Test Item Value Reference Range Interpretation Comments FKap/FLam RT (test code = 5566) 1.43 0.26-1.[address] [facility] [place]/Free Lambda Ratio 2022-01-26 20:32:58 Test Item Value Reference Range Interpretation Comments FKap/FLam RT (test code = 5566) 1.43 0.26-1.[address] [facility] [place]/Free Lambda Ratio 2022-01-26 20:32:58 Test Item Value Reference Range Interpretation Comments FKap/FLam RT (test code = 5566) 1.43 0.26-1.[address] [facility] Lambda Light [id number] 20:32:57 Test Item Value Reference Range Interpretation Comments Free Lambda (test code = 5630) 58.78 mg/L 5.71-26.30 H Lab Interpretation (test code = Abnormal 69214-7) [facility] [id number] 20:32:57 Test Item Value Reference Range Interpretation Comments Free Lambda (test code = 5630) 58.78 mg/L 5.71-26.30 H Lab Interpretation (test code = Abnormal 20298-0) [facility] [id number] 20:32:57 Test Item Value Reference Range Interpretation Comments Free Lambda (test code = 5630) 58.78 mg/L 5.71-26.30 H Lab Interpretation (test code = Abnormal 16199-8) [facility] [id number] 20:32:57 Test Item Value Reference Range Interpretation Comments Free Lambda (test code = 5630) 58.78 mg/L 5.71-26.30 H Lab Interpretation (test code = Abnormal 27943-7) [facility] [id number] 20:32:57 Test Item Value Reference Range Interpretation Comments Free Lambda (test code = 5630) 58.78 mg/L 5.71-26.30 H Lab Interpretation (test code = Abnormal 75472-0) [facility] [id number] 20:32:57 Test Item Value Reference Range Interpretation Comments Free Lambda (test code = 5630) 58.78 mg/L 5.71-26.30 H Lab Interpretation (test code = Abnormal 26161-0) [facility] [id number] 20:32:57 Test Item Value Reference Range Interpretation Comments Free Lambda (test code = 5630) 58.78 mg/L 5.71-26.30 H Lab Interpretation (test code = Abnormal 49895-1) [facility] [id number] 20:32:57 Test Item Value Reference Range Interpretation Comments Free Lambda (test code = 5630) 58.78 mg/L 5.71-26.30 H Lab Interpretation (test code = Abnormal 50101-3) [facility] [id number] 20:32:57 Test Item Value Reference Range Interpretation Comments Free Lambda (test code = 5630) 58.78 mg/L 5.71-26.30 H Lab Interpretation (test code = Abnormal 33460-4) [facility] [place] [facility] [id number] 20:32:56 Test Item Value Reference Range Interpretation Comments Free [place] (test code = 5629) 83.84 mg/L 3.30-19.40 H Lab Interpretation (test code = Abnormal 82034-2) [facility] [place] [facility] [id number] 20:32:56 Test Item Value Reference Range Interpretation Comments Free [place] (test code = 5629) 83.84 mg/L 3.30-19.40 H Lab Interpretation (test code = Abnormal 58994-4) [facility] [place] [facility] [id number] 20:32:56 Test Item Value Reference Range Interpretation Comments Free [place] (test code = 5629) 83.84 mg/L 3.30-19.40 H Lab Interpretation (test code = Abnormal 73401-8) [facility] [place] [facility] [id number] 20:32:56 Test Item Value Reference Range Interpretation Comments Free [place] (test code = 5629) 83.84 mg/L 3.30-19.40 H Lab Interpretation (test code = Abnormal 56306-6) [facility] [place] [facility] [id number] 20:32:56 Test Item Value Reference Range Interpretation Comments Free [place] (test code = 5629) 83.84 mg/L 3.30-19.40 H Lab Interpretation (test code = Abnormal 94323-2) [facility] [place] [facility] [id number] 20:32:56 Test Item Value Reference Range Interpretation Comments Free [place] (test code = 5629) 83.84 mg/L 3.30-19.40 H Lab Interpretation (test code = Abnormal 32176-0) [facility] [place] [facility] [id number] 20:32:56 Test Item Value Reference Range Interpretation Comments Free [place] (test code = 5629) 83.84 mg/L 3.30-19.40 H Lab Interpretation (test code = Abnormal 84919-9) [facility] [place] [facility] [id number] 20:32:56 Test Item Value Reference Range Interpretation Comments Free [place] (test code = 5629) 83.84 mg/L 3.30-19.40 H Lab Interpretation (test code = Abnormal 71093-5) [facility] [place] [facility] [id number] 20:32:56 Test Item Value Reference Range Interpretation Comments Free [place] (test code = 5629) 83.84 mg/L 3.30-19.40 H Lab Interpretation (test code = Abnormal 55711-1) [facility] [id number] 20:32:55 Test Item Value Reference Range Interpretation Comments Beta2 Microglob (test 3.7 mg/L 0.8-2.3 H This t est is measured code = 5090) by turbidimetri c methodology on the The Binding Site Op tilite analyzer. Resul ts obtained from different metho ds are not interchange able. Lab Interpretation Abnormal (test code = 95626-1) [facility] [id number] 20:32:55 Test Item Value Reference Range Interpretation Comments Beta2 Microglob (test 3.7 mg/L 0.8-2.3 H This t est is measured code = 5090) by turbidimetri c methodology on the The Binding Site Op tilite analyzer. Resul ts obtained from different metho ds are not interchange able. Lab Interpretation Abnormal (test code = 03849-4) [facility] [id number] 20:32:55 Test Item Value Reference Range Interpretation Comments Beta2 Microglob (test 3.7 mg/L 0.8-2.3 H This t est is measured code = 5090) by turbidimetri c methodology on the The Binding Site Op tilite analyzer. Resul ts obtained from different metho ds are not interchange able. Lab Interpretation Abnormal (test code = 77870-8) [facility] [id number] 20:32:55 Test Item Value Reference Range Interpretation Comments Beta2 Microglob (test 3.7 mg/L 0.8-2.3 H This t est is measured code = 5090) by turbidimetri c methodology on the The Binding Site Op tilite analyzer. Resul ts obtained from different metho ds are not interchange able. Lab Interpretation Abnormal (test code = 76823-9) [facility] [id number] 20:32:55 Test Item Value Reference Range Interpretation Comments Beta2 Microglob (test 3.7 mg/L 0.8-2.3 H This t est is measured code = 5090) by turbidimetri c methodology on the The Binding Site Op tilite analyzer. Resul ts obtained from different metho ds are not interchange able. Lab Interpretation Abnormal (test code = 68737-7) [facility] [id number] 20:32:55 Test Item Value Reference Range Interpretation Comments Beta2 Microglob (test 3.7 mg/L 0.8-2.3 H This t est is measured code = 5090) by turbidimetri c methodology on the The Binding Site Op tilite analyzer. Resul ts obtained from different metho ds are not interchange able. Lab Interpretation Abnormal (test code = 96686-2) [facility] [id number] 20:32:55 Test Item Value Reference Range Interpretation Comments Beta2 Microglob (test 3.7 mg/L 0.8-2.3 H This t est is measured code = 5090) by turbidimetri c methodology on the The Binding Site Op tilite analyzer. Resul ts obtained from different metho ds are not interchange able. Lab Interpretation Abnormal (test code = 28505-6) [facility] [id number] 20:32:55 Test Item Value Reference Range Interpretation Comments Beta2 Microglob (test 3.7 mg/L 0.8-2.3 H This t est is measured code = 5090) by turbidimetri c methodology on the The Binding Site Op tilite analyzer. Resul ts obtained from different metho ds are not interchange able. Lab Interpretation Abnormal (test code = 31180-0) [facility] [id number] 20:32:55 Test Item Value Reference Range Interpretation Comments Beta2 Microglob (test 3.7 mg/L 0.8-2.3 H This t est is measured code = 5090) by turbidimetri c methodology on the The Binding Site Op tilite analyzer. Resul ts obtained from different metho ds are not interchange able. Lab Interpretation Abnormal (test code = 02382-8) [facility]2022-10-19 20:32:54 Test Item Value Reference Range Interpretation Comments IgM (test code = 6023) 23 mg/dL 35-242 L Lab Interpretation (test code = Abnormal 67737-6) [facility]2022-10-19 20:32:54 Test Item Value Reference Range Interpretation Comments IgM (test code = 6023) 23 mg/dL 35-242 L Lab Interpretation (test code = Abnormal 75541-0) [facility]2022-10-19 20:32:54 Test Item Value Reference Range Interpretation Comments IgM (test code = 6023) 23 mg/dL 35-242 L Lab Interpretation (test code = Abnormal 31823-1) [facility]2022-10-19 20:32:54 Test Item Value Reference Range Interpretation Comments IgM (test code = 6023) 23 mg/dL 35-242 L Lab Interpretation (test code = Abnormal 59359-0) [facility]2022-10-19 20:32:54 Test Item Value Reference Range Interpretation Comments IgM (test code = 6023) 23 mg/dL 35-242 L Lab Interpretation (test code = Abnormal 40738-6) [facility]2022-10-19 20:32:54 Test Item Value Reference Range Interpretation Comments IgM (test code = 6023) 23 mg/dL 35-242 L Lab Interpretation (test code = Abnormal 20710-9) [facility]2022-10-19 20:32:54 Test Item Value Reference Range Interpretation Comments IgM (test code = 6023) 23 mg/dL 35-242 L Lab Interpretation (test code = Abnormal 12567-6) [facility]2022-10-19 20:32:54 Test Item Value Reference Range Interpretation Comments IgM (test code = 6023) 23 mg/dL 35-242 L Lab Interpretation (test code = Abnormal 01289-6) [facility]2022-10-19 20:32:54 Test Item Value Reference Range Interpretation Comments IgM (test code = 6023) 23 mg/dL 35-242 L Lab Interpretation (test code = Abnormal 11947-1) [place] 62958022-10-19 20:32:53 Test Item Value Reference Range Interpretation Comments IgG (test code = 6001) 938 mg/dL 610-1616 [place] 62958022-10-19 20:32:53 Test Item Value Reference Range Interpretation Comments IgG (test code = 6001) 938 mg/dL 610-1616 [place] 62958022-10-19 20:32:53 Test Item Value Reference Range Interpretation Comments IgG (test code = 6001) 938 mg/dL 610-1616 [place] 62958022-10-19 20:32:53 Test Item Value Reference Range Interpretation Comments IgG (test code = 6001) 938 mg/dL 610-1616 [place] 62958022-10-19 20:32:53 Test Item Value Reference Range Interpretation Comments IgG (test code = 6001) 938 mg/dL 610-[address] [facility] 20:32:53 Test Item Value Reference Range Interpretation Comments IgG (test code = 6001) 938 mg/dL 610-1616 [place] 62958022-10-19 20:32:53 Test Item Value Reference Range Interpretation Comments IgG (test code = 6001) 938 mg/dL 610-1616 [place] 62958022-10-19 20:32:53 Test Item Value Reference Range Interpretation Comments IgG (test code = 6001) 938 mg/dL 610-1616 [place] 62958022-10-19 20:32:53 Test Item Value Reference Range Interpretation Comments IgG (test code = 6001) 938 mg/[facility]52 Test Item Value Reference Range Interpretation Comments IgA (test code = 5992) 233 mg/dL 85-499 [place] [id number] 20:32:52 Test Item Value Reference Range Interpretation Comments IgA (test code = 5992) 233 mg/dL 85-[address] 20:32:52 Test Item Value Reference Range Interpretation Comments IgA (test code = 5992) 233 mg/dL 85-[address] 20:32:52 Test Item Value Reference Range Interpretation Comments IgA (test code = 5992) 233 mg/dL 85-[address] 20:32:52 Test Item Value Reference Range Interpretation Comments IgA (test code = 5992) 233 mg/dL 85-[address] 20:32:52 Test Item Value Reference Range Interpretation Comments IgA (test code = 5992) 233 mg/dL 85-[facility] 20:32:52 Test Item Value Reference Range Interpretation Comments IgA (test code = 5992) 233 mg/dL 85-[address] 20:32:52 Test Item Value Reference Range Interpretation Comments IgA (test code = 5992) 233 mg/dL 85-[address] 20:32:52 Test Item Value Reference Range Interpretation Comments IgA (test code = 5992) 233 mg/dL 85-[address] [facility]24[facility] Urine Total [id number] 18:55:32 Test Item Value Reference Range Interpretation [...] 78 See_Comment [Automate d message] The = 7902) system which ge nerated this result transmit jenny reference range: <=149 mg /24hr. The reference range was not used to interpret th is result as normal/abnormal . [facility] Urine Total Mwkcgxz9625-17-23 18:55:32 Test Item Value Reference Range Interpretation [...] interpret th is result as normal/abnormal . [facility] Urine Total [id number] 18:55:32 Test Item Value Reference Range Interpretation [...] interpret th is result as normal/abnormal . [facility] Urine Total Qssjswo2870-84-83 18:55:32 Test Item Value Reference Range Interpretation [...] interpret th is result as normal/abnormal . [facility] Urine Total [id number] 18:55:32 Test Item Value Reference Range Interpretation [...] interpret th is result as normal/abnormal . [facility]24[facility] Urine Total Saxsgrf5177-31-22 18:55:32 Test Item Value Reference Range Interpretation [...] interpret th is result as normal/abnormal . [facility] Urine Total Njthvxi7906-16-04 18:55:32 Test Item Value Reference Range Interpretation [...] interpret th is result as normal/abnormal . [facility] Urine Total Jjckmyb6803-66-09 18:55:32 Test Item Value Reference Range Interpretation [...] interpret th is result as normal/abnormal . [facility] Urine Total Wgpslov6163-30-36 18:55:32 Test Item Value Reference Range Interpretation [...] interpret th is result as normal/abnormal . [facility] Ibgvjp5332-54-13 17:54:53 Test Item Value Reference Range Interpretation [...] = 5928) Start Date (test code = 01/25/20227381) End Date (test code = 01/26/2022) U24 Comment (test code 0630a-0630a = 8547) Lab Interpretation Abnormal (test code = 02611-4) [facility] Dbifqw1198-23-25 17:54:53 Test Item Value Reference Range Interpretation [...] = 5928) Start Date (test code = 01/25/20227381) End Date (test code = 01/26/2022) U24 Comment (test code 0630a-0630a = 8547) Lab Interpretation Abnormal (test code = 14685-1) [facility] Bbbjkh4335-53-09 17:54:53 Test Item Value Reference Range Interpretation [...] = 5928) Start Date (test code = 01/25/20227381) End Date (test code = 01/26/2022) U24 Comment (test code 0630a-0630a = 8547) Lab Interpretation Abnormal (test code = 91094-0) [facility] Nqtkdv7568-35-54 17:54:53 Test Item Value Reference Range Interpretation [...] = 5928) Start Date (test code = 01/25/20227381) End Date (test code = 01/26/2022) U24 Comment (test code 0630a-0630a = 8547) Lab Interpretation Abnormal (test code = 24115-2) [facility] Qwkvoo0994-63-12 17:54:53 Test Item Value Reference Range Interpretation [...] = 5928) Start Date (test code = 01/25/20227381) End Date (test code = 01/26/2022) U24 Comment (test code 0630a-0630a = 8547) Lab Interpretation Abnormal (test code = 18589-1) [facility] Bjwybg0060-51-85 17:54:53 Test Item Value Reference Range Interpretation [...] = 5928) Start Date (test code = 01/25/20227381) End Date (test code = 01/26/2022) U24 Comment (test code 0630a-0630a = 8547) Lab Interpretation Abnormal (test code = 05625-9) [facility] Faoanz5803-63-37 17:54:53 Test Item Value Reference Range Interpretation [...] = 5928) Start Date (test code = 01/25/20227381) End Date (test code = 01/26/2022) U24 Comment (test code 0630a-0630a = 8547) Lab Interpretation Abnormal (test code = 23533-1) [facility] Bltewt2382-81-02 17:54:53 Test Item Value Reference Range Interpretation [...] = 5928) Start Date (test code = 01/25/20227381) End Date (test code = 01/26/2022) U24 Comment (test code 0630a-0630a = 8547) Lab Interpretation Abnormal (test code = 70620-6) [facility] [id number] 17:54:53 Test Item Value Reference Range Interpretation [...] 7382) End Date (test code = 01/26/2022 90672-4) U24 Comment (test code 0630a-0630a = 8547) Lab Interpretation Abnormal (test code = 10163-5) [facility] Mtrkjpuzd7618-68-92 15:18:55 Test Item Value Reference Range Interpretation Comments Bili Total (test 0.7 mg/dL <=1.2 Indocyanine Green (ICG) code = 1974-05) may cause fal sely elevated biliru bin results. Total and direct bilirubin must not be measured from s amples containing indo cyanine green. False el evation of total bilirubin can be seen in patient s with IgG concentrations above 28 g/L. Bili Direct (test 0.2 mg/dL <=0.3 Indocyanin e Green (ICG) code = 1967-10) may cause fal sely elevated biliru bin results. Total and direct bilirubin must not be measured from s amples containing indo cyanine green. Bili Indirect (test 0.5 mg/dL 0.0-0.9 code = 1970-04) [facility] Pqaxsdzgz7170-05-56 15:18:55 Test Item Value Reference Range Interpretation Comments Bili Total (test 0.7 mg/dL <=1.2 Indocyanine Green (ICG) code = 1974-05) may cause fal sely elevated biliru bin results. Total and direct bilirubin must not be measured from s amples containing indo cyanine green. False el evation of total bilirubin can be seen in patient s with IgG concentrations above 28 g/L. Bili Direct (test 0.2 mg/dL <=0.3 Indocyanin e Green (ICG) code = 1967-10) may cause fal sely elevated biliru bin results. Total and direct bilirubin must not be measured from s amples containing indo cyanine green. Bili Indirect (test 0.5 mg/dL 0.0-0.9 code = 1970-04) [facility] Ttdskqxeh1210-20-87 15:18:55 Test Item Value Reference Range Interpretation Comments Bili Total (test 0.7 mg/dL <=1.2 Indocyanine Green (ICG) code = 1974-05) may cause fal sely elevated biliru bin results. Total and direct bilirubin must not be measured from s amples containing indo cyanine green. False el evation of total bilirubin can be seen in patient s with IgG concentrations above 28 g/L. Bili Direct (test 0.2 mg/dL <=0.3 Indocyanin e Green (ICG) code = 1967-10) may cause fal sely elevated biliru bin results. Total and direct bilirubin must not be measured from s amples containing indo cyanine green. Bili Indirect (test 0.5 mg/dL 0.0-0.9 code = 1970-04) [facility] Apwfgmvsh5791-13-55 15:18:55 Test Item Value Reference Range Interpretation [...] above 28 g/L. [Automated message] The system [employer] generated this result transmitted ref erence range: [...] (test 0.5 mg/dL 0.0-0.9 code = 1970-04) [facility] [id number] 15:18:55 Test Item Value Reference Range Interpretation [...] 28 g/L. [Automate d message] The system [employer] generated this result transmitted ref erence range: [...] (test 0.5 mg/dL 0.0-0.9 code = 1970-04) [facility] Uylhljncy4156-17-08 15:18:55 Test Item Value Reference Range Interpretation [...] above 28 g/L. [Automated message] The system [employer] generated this result transmitted ref erence range: [...] (test 0.5 mg/dL 0.0-0.9 code = 1970-04) [facility] [id number] 15:18:55 Test Item Value Reference Range Interpretation [...] above 28 g/L. [Automated message] The system [employer] generated this result transmitted ref erence range: [...] (test 0.5 mg/dL 0.0-0.9 code = 1970-04) [facility] [id number] 15:18:55 Test Item Value Reference Range Interpretation Comments Bili Total (test 0.7 mg/dL <=1.2 Indocyanine Green (ICG) code = 1974-05) may cause fal sely elevated biliru bin results. Total and direct bilirubin must not be measured from s amples containing indo cyanine green. False el evation of total bilirubin can be seen in patient s with IgG concentrations above 28 g/L. Bili Direct (test 0.2 mg/dL <=0.3 Indocyanin e Green (ICG) code = 1967-10) may cause fal sely elevated biliru bin results. Total and direct bilirubin must not be measured from s amples containing indo cyanine green. Bili Indirect (test 0.5 mg/dL 0.0-0.9 code = 1970-04) [facility] [id number] 15:18:55 Test Item Value Reference Range Interpretation Comments Bili Total (test 0.7 mg/dL <=1.2 Indocyanine Green (ICG) code = 1974-) may cause fal sely elevated biliru bin results. Total and direct bilirubin must not be measured from s amples containing indo cyanine green. False el evation of total bilirubin can be seen in patient s with IgG concentrations above 28 g/L. Bili Direct (test 0.2 mg/dL <=0.3 Indocyanin e Green (ICG) code = 1967-10) may cause fal sely elevated biliru bin results. Total and direct bilirubin must not be measured from s amples containing indo cyanine green. Bili Indirect (test 0.5 mg/dL 0.0-0.9 code = 1970-04) [facility] Rate 2022-01-26 15:18:54 Test Item Value Reference Range Interpretation Comments eGFR (test code = 50 See_Comment L [place] [address]) calculated with the 2020 CKD-EPI cr eatinine equation using creatinine, pat ient's age, and sex fo r adults 18 years of age and older. Other fa ctors, especially musc le mass, may affect accu racy and need to be considered.Acco rding to the Kidney Dise ase: Improving Globa l Outcomes (KDIGO ) CKD Work Group 2012 Clinical Practi ce Guideline, marine chronometer assembler keira kidney disease (CKD) is defined as [...] . Lab Interpretation Abnormal (test code = 01293-7) [facility] 2022-01-26 15:18:54 Test Item Value Reference Range Interpretation Comments eGFR (test code = 50 See_Comment L [place] [address]) calculated with the 2020 CKD-EPI cr eatinine equation using creatinine, pat ient's age, and sex fo r adults 18 years of age and older. Other fa ctors, especially musc le mass, may affect accu racy and need to be considered.Acco rding to the Kidney Dise ase: Improving Globa l Outcomes (KDIGO ) CKD Work Group 2012 Clinical Practi ce Guideline, marine chronometer assembler keira kidney disease (CKD) is defined as [...] . Lab Interpretation Abnormal (test code = 15004-9) [facility] 2022-01-26 15:18:54 Test Item Value Reference Range Interpretation Comments eGFR (test code = 50 See_Comment L [place] [address]) calculated with the 2020 CKD-EPI cr eatinine equation using creatinine, pat ient's age, and sex fo r adults 18 years of age and older. Other fa ctors, especially musc le mass, may affect accu racy and need to be considered.Acco rding to the Kidney Dise ase: Improving Globa l Outcomes (KDIGO ) CKD Work Group 2012 Clinical Practi ce Guideline, marine chronometer assembler keira kidney disease (CKD) is defined as [...] criteri a for CKD. [Automated message] The [employer] which generated this result transmit jenny reference range : >=60 mL/min/1.73 sq. m. The reference range was not used to interpr et this result as normal/abnormal . Lab Interpretation Abnormal (test code = 91547-8) [facility] 2022-01-26 15:18:54 Test Item Value Reference Range Interpretation Comments eGFR (test code = 50 See_Comment L [place] [address]) calculated with the 2020 CKD-EPI cr eatinine equation using creatinine, pat ient's age, and sex fo r adults 18 years of age and older. Other fa ctors, especially musc le mass, may affect accu racy and need to be considered.Acco rding to the Kidney Dise ase: Improving Globa l Outcomes (KDIGO ) CKD Work Group 2012 Clinical Practi ce Guideline, marine chronometer assembler keira kidney disease (CKD) is defined as [...] . Lab Interpretation Abnormal (test code = 94824-2) [facility] 2022-01-26 15:18:54 Test Item Value Reference Range Interpretation Comments eGFR (test code = 50 See_Comment L [place] [address]) calculated with the 2020 CKD-EPI cr eatinine equation using creatinine, pat ient's age, and sex fo r adults 18 years of age and older. Other fa ctors, especially musc le mass, may affect accu racy and need to be considered.Acco rding to the Kidney Dise ase: Improving Globa l Outcomes (KDIGO ) CKD Work Group 2012 Clinical Practi ce Guideline, marine chronometer assembler keira kidney disease (CKD) is defined as the abnormalities o f kidney structure or fu nction, present for mor e than 3 months, with implications fo r health. CKD gatito uld be classified by c lexie, GFR category, a nd albuminuria cat egory. [...] . Lab Interpretation Abnormal (test code = 71705-5) [facility] 2022-01-26 15:18:54 Test Item Value Reference Range Interpretation Comments eGFR (test code = 50 See_Comment L [place] [address]) calculated with the 2020 CKD-EPI cr eatinine equation using creatinine, pat ient's age, and sex fo r adults 18 years of age and older. Other fa ctors, especially musc le mass, may affect accu racy and need to be considered.Acco rding to the Kidney Dise ase: Improving Globa l Outcomes (KDIGO ) CKD Work Group 2012 Clinical Practi ce Guideline, marine chronometer assembler keira kidney disease (CKD) is defined as the abnormalities o f kidney structure or fu nction, present for mor e than 3 months, with implications fo r health. CKD gatito uld be classified by mable lozoya, GFR category, a nd albuminuria cat egory. [...] . Lab Interpretation Abnormal (test code = 24996-5) [facility] [place] 2022-01-26 15:18:54 Test Item Value Reference Range Interpretation Comments eGFR (test code = 50 See_Comment L [place] [address]704) calculated with the 2020 CKD-EPI cr eatinine equation using creatinine, pat ient's age, and sex fo r adults 18 years of age and older. Other fa ctors, especially musc le mass, may affect accu racy and need to be considered.Acco rding to the Kidney Dise ase: Improving Globa l Outcomes (KDIGO ) CKD Work Group 2012 Clinical Practi ce Guideline, marine chronometer assembler keira kidney disease (CKD) is defined as the abnormalities o f kidney structure or fu nction, present for mor e than 3 months, with implications fo r health. CKD gatito uld be classified by c darell, GFR category, a nd albuminuria cat egory. [...] . Lab Interpretation Abnormal (test code = 54554-1) [facility] 2022-01-26 15:18:54 Test Item Value Reference Range Interpretation Comments eGFR (test code = 50 See_Comment L [place] is [address]00) calculated with the 2020 CKD-EPI cr eatinine equation using creatinine, pat ient's age, and sex fo r adults 18 years of age and older. Other fa ctors, especially musc le mass, may affect accu racy and need to be considered.Acco rding to the Kidney Dise ase: Improving Globa l Outcomes (KDIGO ) CKD Work Group 2012 Clinical Practi ce Guideline, marine chronometer assembler keira kidney disease (CKD) is defined as the abnormalities o f kidney structure or fu nction, present for mor e than 3 months, with implications fo r health. CKD gatito uld be classified by mable lozoya, GFR category, a nd albuminuria cat egory. [...] . Lab Interpretation Abnormal (test code = 70899-6) [facility] 2022-01-26 15:18:54 Test Item Value Reference Range Interpretation Comments eGFR (test code = 50 See_Comment L [place] 10401) calculated with the 2020 CKD-EPI cr eatinine equation using creatinine, pat ient's age, and sex fo r adults 18 years of age and older. Other fa ctors, especially musc le mass, may affect accu racy and need to be considered.Acco rding to the Kidney Dise ase: Improving Globa l Outcomes (KDIGO ) CKD Work Group 2012 Clinical Practi ce Guideline, marine chronometer assembler keira kidney disease (CKD) is defined as [...] . Lab Interpretation Abnormal (test code = 52194-5) [facility] [id number] 15:18:53 Test Item Value Reference Range Interpretation Comments Magnesium (test code = 69354-2) 1.7 mg/dL 1.6-2.[address] Hdzxl7974-54-55 15:18:53 Test Item Value Reference Range Interpretation Comments Magnesium (test code = 91404-5) 1.7 mg/dL 1.6-2.[address] Siswb5698-45-90 15:18:53 Test Item Value Reference Range Interpretation Comments Magnesium (test code = 99588-8) 1.7 mg/dL 1.6-2.[address] Zmgcl4298-13-11 15:18:53 Test Item Value Reference Range Interpretation Comments Magnesium (test code = 81467-2) 1.7 mg/dL 1.6-2.[address] [address] Oujdw1768-65-85 15:18:53 Test Item Value Reference Range Interpretation Comments Magnesium (test code = 04110-1) 1.7 mg/dL 1.6-2.[address] Ozebx2887-10-09 15:18:53 Test Item Value Reference Range Interpretation Comments Magnesium (test code = 60279-8) 1.7 mg/dL 1.6-2.[address] Wyanj2493-95-63 15:18:53 Test Item Value Reference Range Interpretation Comments Magnesium (test code = 71684-9) 1.7 mg/dL 1.6-2.[address] Uhsxi3585-06-41 15:18:53 Test Item Value Reference Range Interpretation Comments Magnesium (test code = 66047-5) 1.7 mg/dL 1.6-2.[address] Tavnf6128-10-06 15:18:53 Test Item Value Reference Range Interpretation Comments Magnesium (test code = 60213-5) 1.7 mg/dL 1.6-2.[address]LDH[facility]22-[facility] 15:18:52 Test Item Value Reference Range Interpretation Comments LDH (test code = 125 U/L 135-214 L Results gre ater than 08779-5) 1651 U/L may no t be reliable due to matrix effect w ith extended diluti on as it exceeds the director college's recommended diallo it. Caution should be exercised when interpreting diaz ch values and done in conjunction wit h clinical contex t. Lab Interpretation (test Abnormal code = 16650-6) [facility] 15:18:52 Test Item Value Reference Range Interpretation Comments LDH (test code = 125 U/L 135-214 L Results gre ater than 24223-0) 1651 U/L may no t be reliable due to matrix effect w ith extended diluti on as it exceeds the [employer]'s recommended diallo it. Caution should be exercised when interpreting diaz ch values and done in conjunction [facility] clinical [employer] t. Lab Interpretation (test Abnormal code = 61744-4) [facility] 15:18:52 Test Item Value Reference Range Interpretation Comments LDH (test code = 125 U/L 135-214 L Results gre ater than 28780-6) 1651 U/L may no t be reliable due to matrix effect w ith extended diluti on as it exceeds the [employer]'s recommended diallo it. Caution should be exercised when interpreting diaz ch values and done in conjunction [facility] [employer] t. Lab Interpretation (test Abnormal code = 84508-9) [facility] 15:18:52 Test Item Value Reference Range Interpretation Comments LDH (test code = 125 U/L 135-214 L Results gre ater than 64196-2) 1651 U/L may no t be reliable due to matrix effect w ith extended diluti on as it exceeds the [employer]'s recommended diallo it. Caution should be exercised when interpreting diaz ch values and done in conjunction [facility] [employer] t. Lab Interpretation (test Abnormal code = 55074-4) [facility] 15:18:52 Test Item Value Reference Range Interpretation Comments LDH (test code = 125 U/L 135-214 L Results gre ater than 02302-5) 1651 U/L may no t be reliable due to matrix effect w ith extended diluti on as it exceeds the [employer]'s recommended diallo it. Caution should be exercised when interpreting diaz ch values and done in conjunction [facility] clinical [employer]. Lab Interpretation (test Abnormal code = 57611-6) [facility] 15:18:52 Test Item Value Reference Range Interpretation Comments LDH (test code = 125 U/L 135-214 L Results gre ater than 11320-7) 1651 U/L may no t be reliable due to matrix effect w ith extended diluti on as it exceeds the [employer]'s recommended diallo it. Caution should be exercised when interpreting diaz ch values and done in conjunction [facility] clinical contex t. Lab Interpretation (test Abnormal code = 72501-1) [facility] 15:18:52 Test Item Value Reference Range Interpretation Comments LDH (test code = 125 U/L 135-214 L Results gre ater than 07430-0) 1651 U/L may no t be reliable due to matrix effect w ith extended diluti on as it exceeds the [employer]'s recommended diallo it. Caution should be exercised when interpreting diaz ch values and done in conjunction [facility] clinical contex t. Lab Interpretation (test Abnormal code = 54608-1) [facility] 15:18:52 Test Item Value Reference Range Interpretation Comments LDH (test code = 125 U/L 135-214 L Results gre ater than 44259-2) 1651 U/L may no t be reliable due to matrix effect w ith extended diluti on as it exceeds the [employer]'s recommended diallo it. Caution should be exercised when interpreting diaz ch values and done in conjunction [facility] clinical contex t. Lab Interpretation (test Abnormal code = 91957-3) [facility] 15:18:52 Test Item Value Reference Range Interpretation Comments LDH (test code = 125 U/L 135-214 L Results gre ater than 63165-2) 1651 U/L may no t be reliable due to matrix effect w ith extended diluti on as it exceeds the [employer]'s recommended diallo it. Caution should be exercised when interpreting diaz ch values and done in conjunction [facility] clinical contex t. Lab Interpretation (test Abnormal code = 40592-5) [facility] Gslunxrfadi9633-79-28 15:18:51 Test Item Value Reference Range Interpretation Comments Alk Phos (test code = 6768-6) 77 U/L 35-[address] [facility] Yfkuicqetnk4234-43-10 15:18:51 Test Item Value Reference Range Interpretation Comments Alk Phos (test code = 6768-6) 77 U/L 35-[address] [facility] Klqsiuowwey1079-37-33 15:18:51 Test Item Value Reference Range Interpretation Comments Alk Phos (test code = 6768-6) 77 U/L 35-[address] [facility] Uhdqxvvrrmg5435-32-28 15:18:51 Test Item Value Reference Range Interpretation Comments Alk Phos (test code = 6768-6) 77 U/L 35-[address] [facility] Vqnajpxzagt8871-73-77 15:18:51 Test Item Value Reference Range Interpretation Comments Alk Phos (test code = 6768-6) 77 U/L 35-[address] [facility] Tjwhpxvlpar3001-32-28 15:18:51 Test Item Value Reference Range Interpretation Comments Alk Phos (test code = 6768-6) 77 U/L 35-[address] [facility] Ivivfcauacd9170-58-45 15:18:51 Test Item Value Reference Range Interpretation Comments Alk Phos (test code = 6768-6) 77 U/L 35-[address] [facility] Dzzxcfxtcyn4907-09-76 15:18:51 Test Item Value Reference Range Interpretation Comments Alk Phos (test code = 6768-6) 77 U/L 35-[address] Xjmuszhoech2817-06-05 15:18:51 Test Item Value Reference Range Interpretation Comments Alk Phos (test code = 6768-6) 77 U/L 35-[address] [facility] [id number] 15:18:50 Test Item Value Reference Range Interpretation Comments Albumin Lvl (test code 3.9 See_Comment [Aut omated message] The = 1750-10) system which ge nerated this result tra nsmitted reference range : 3.5 - 5.2 gm/dL. The refe rence range was not used to interpret this result as normal/abnormal . [facility] [id number] 15:18:50 Test Item Value Reference Range Interpretation Comments Albumin Lvl (test code 3.9 See_Comment [Aut omated message] The = 1750-10) system which ge nerated this result tra nsmitted reference range : 3.5 - 5.2 gm/dL. The refe rence range was not used to interpret this result as normal/abnormal . [facility] [id number] 15:18:50 Test Item Value Reference Range Interpretation Comments Albumin Lvl (test code 3.9 See_Comment [Aut omated message] The = 1750-10) system which ge nerated this result tra nsmitted reference range : 3.5 - 5.2 gm/dL. The refe rence range was not used to interpret this result as normal/abnormal . [facility] [id number] 15:18:50 Test Item Value Reference Range Interpretation Comments Albumin Lvl (test code 3.9 See_Comment [Aut omated message] The = 1750-10) system which ge nerated this result tra nsmitted reference range : 3.5 - 5.2 gm/dL. The refe rence range was not used to interpret this result as normal/abnormal . [facility] [id number] 15:18:50 Test Item Value Reference Range Interpretation Comments Albumin Lvl (test code 3.9 See_Comment [Aut omated message] The = 1750-10) system which ge nerated this result tra nsmitted reference range : 3.5 - 5.2 gm/dL. The refe rence range was not used to interpret this result as normal/abnormal . [facility] [id number] 15:18:50 Test Item Value Reference Range Interpretation Comments Albumin Lvl (test code 3.9 See_Comment [Aut omated message] The = 1750-10) system which ge nerated this result tra nsmitted reference range : 3.5 - 5.2 gm/dL. The refe rence range was not used to interpret this result as normal/abnormal . [facility] [id number] 15:18:50 Test Item Value Reference Range Interpretation Comments Albumin Lvl (test code 3.9 See_Comment [Aut omated message] The = 1750-10) system which ge nerated this result tra nsmitted reference range : 3.5 - 5.2 gm/dL. The refe rence range was not used to interpret this result as normal/abnormal . [facility] [id number] 15:18:50 Test Item Value Reference Range Interpretation Comments Albumin Lvl (test code 3.9 See_Comment [Aut omated message] The = 1750-10) system which ge nerated this result tra nsmitted reference range : 3.5 - 5.2 gm/dL. The refe rence range was not used to interpret this result as normal/abnormal . [facility] [id number] 15:18:50 Test Item Value Reference Range Interpretation Comments Albumin Lvl (test code 3.9 See_Comment [Aut omated message] The = 1750-10) system which ge nerated this result tra nsmitted reference range : 3.5 - 5.2 gm/dL. The refe rence range was not used to interpret this result as normal/abnormal . [facility] HospitalAspart[facility] Aminotransferase 2022-01-26 15:18:49 Test Item Value Reference Range Interpretation Comments AST (test code = 1920-8) 13 U/L <=[address] [address] HospitalAsp[facility] Aminotransferase 2022-01-26 15:18:49 Test Item Value Reference Range Interpretation Comments AST (test code = 1920-8) 13 U/L <=[address] [facility] [address] HospitalAsp[facility] Aminotransferase 2022-01-26 15:18:49 Test Item Value Reference Range Interpretation Comments AST (test code = 1920-8) 13 U/L <=[address] [facility] [address] Hospital[facility] Aminotransferase 2022-01-26 15:18:49 Test Item Value Reference Range Interpretation Comments AST (test code = 13 U/L See_Comment [Automated message] The 1919-11) system which ge nerated this result transmit jenny reference range : <=32. The reference range was not used to interpr et this result as lani l/abnormal. [facility] Aminotransferase 2022-01-26 15:18:49 Test Item Value Reference Range Interpretation Comments AST (test code = 13 U/L See_Comment [Automated message] The 1919-11) system which ge nerated this result transmit jenny reference range : <=32. The reference range was not used to interpr et this result as lani l/abnormal. [facility] Aminotransferase 2022-01-26 15:18:49 Test Item Value Reference Range Interpretation Comments AST (test code = 13 U/L See_Comment [Automated message] The 1919-11) system which ge nerated this result transmit jenny reference range : <=32. The reference range was not used to interpr et this result as lani l/abnormal. [facility] Amin[facility] 2022-01-26 15:18:49 Test Item Value Reference Range Interpretation Comments AST (test code = 13 U/L See_Comment [Automated message] The 1919-11) system which ge nerated this result transmit jenny reference range : <=32. The reference range was not used to interpr et this result as lani l/abnormal. [facility] Amin[facility] 2022-01-26 15:18:49 Test Item Value Reference Range Interpretation Comments AST (test code = 1919-11) 13 U/L <=[address] [address] HospitalAsp[facility] Aminotransferase 2022-01-26 15:18:49 Test Item Value Reference Range Interpretation Comments AST (test code = 1919-11) 13 U/L <=[address] [address] HospitalElect[facility] [id number] 15:18:48 Test Item Value Reference Range Interpretation Comments Sodium Lvl (test code = 136 See_Comment [Au tomated message] 0952-2) The system [employer] generated this result transmitted ref erence range: 136 - 14 5 mEq/L. The refe rence range was not u sed to interpret this result as normal/abnor mal. Potassium Lvl (test code 3.2 See_Comment L [A utomated message] = 3153-3) The system [employer] generated this result transmitted ref erence range: 3.5 - 5. 1 mEq/L. The refe rence range was not u sed to interpret this result as normal/abnor mal. Chloride (test code = 97 See_Comment L [Auto mated message] ) The system [employer] generated this result transmitted ref erence range: 98 - 107 mEq/L. The refe rence range was not u sed to interpret this result as normal/abnor mal. CO2 (test code = 2027-12) 30 See_Comment H [A utomated message] The system [employer] [facility] generated this result transmitted ref erence range: 22 - 29 mEq/L. The reference r josette was not used to interpret this result as normal/abnor mal. Anion Gap (test code = 9 See_Comment [Aut omated message] 82852-2) The system [employer] [facility] generated this result transmitted ref erence range: 4 - 14 m Eq/L. The reference r josette was not used to interpret this result as normal/abnor mal. Lab Interpretation (test Abnormal code = 75598-6) [facility] [id number] 15:18:48 Test Item Value Reference Range Interpretation Comments Sodium Lvl (test code = 136 See_Comment [Au tomated message] 2951-2) The system [employer] generated this result transmitted ref erence range: 136 - 14 5 mEq/L. The refe rence range was not u sed to interpret this result as normal/abnor mal. Potassium Lvl (test code 3.2 See_Comment L [A utomated message] = 2823-3) The system [employer] [facility] generated this result transmitted ref erence range: 3.5 - 5. 1 mEq/L. The refe rence range was not u sed to interpret this result as normal/abnor mal. Chloride (test code = 97 See_Comment L [Auto mated message] ) The system [employer] [facility] generated this result transmitted ref erence range: 98 - 107 mEq/L. The refe rence range was not u sed to interpret this result as normal/abnor mal. CO2 (test code = 2027-12) 30 See_Comment H [A utomated message] The system [employer] [facility] generated this result transmitted ref erence range: 22 - 29 mEq/L. The reference r josette was not used to interpret this result as normal/abnor mal. Anion Gap (test code = 9 See_Comment [Aut omated message] 24248-2) The system [employer] [facility] generated this result transmitted ref erence range: 4 - 14 m Eq/L. The reference r josette was not used to interpret this result as normal/abnor mal. Lab Interpretation (test Abnormal code = 10549-6) [facility] [id number] 15:18:48 Test Item Value Reference Range Interpretation Comments Sodium Lvl (test code = 136 See_Comment [Au tomated message] 2951-2) The system [employer] [facility] generated this result transmitted ref erence range: 136 - 14 5 mEq/L. The refe rence range was not u sed to interpret this result as normal/abnor mal. Potassium Lvl (test code 3.2 See_Comment L [A utomated message] = 2823-3) The system [employer] [facility] generated this result transmitted ref erence range: 3.5 - 5. 1 mEq/L. The refe rence range was not u sed to interpret this result as normal/abnor mal. Chloride (test code = 97 See_Comment L [Auto mated message] 2074-0) The system [employer] [facility] generated this result transmitted ref erence range: 98 - 107 mEq/L. The refe rence range was not u sed to interpret this result as normal/abnor mal. CO2 (test code = 2027-) 30 See_Comment H [A utomated message] The system [employer] [facility] generated this result transmitted ref erence range: 22 - 29 mEq/L. The reference r josette was not used to interpret this result as normal/abnor mal. Anion Gap (test code = 9 See_Comment [Aut omated message] 30722-9) The system [employer] [facility] generated this result transmitted ref erence range: 4 - 14 m Eq/L. The reference r josette was not used to interpret this result as normal/abnor mal. Lab Interpretation (test Abnormal code = 70515-8) [facility] [place] [id number] 15:18:48 Test Item Value Reference Range Interpretation Comments Sodium Lvl (test code = 136 See_Comment [Au tomated message] 2951-2) The system [employer] [facility] generated this result transmitted ref erence range: 136 - 14 5 mEq/L. The refe rence range was not u sed to interpret this result as normal/abnor mal. Potassium Lvl (test code 3.2 See_Comment L [A utomated message] = 2823-3) The system [employer] [facility] generated this result transmitted ref erence range: 3.5 - 5. 1 mEq/L. The refe rence range was not u sed to interpret this result as normal/abnor mal. Chloride (test code = 97 See_Comment L [Auto mated message] ) The system [employer] [facility] generated this result transmitted ref erence range: 98 - 107 mEq/L. The refe rence range was not u sed to interpret this result as normal/abnor mal. CO2 (test code = 2027-12) 30 See_Comment H [A utomated message] The system [employer] [facility] generated this result transmitted ref erence range: 22 - 29 mEq/L. The reference r josette was not used to interpret this result as normal/abnor mal. Anion Gap (test code = 9 See_Comment [Aut omated message] 85522-5) The system [employer] [facility] generated this result transmitted ref erence range: 4 - 14 m Eq/L. The reference r josette was not used to interpret this result as normal/abnor mal. Lab Interpretation (test Abnormal code = 93698-9) [facility] [id number] 15:18:48 Test Item Value Reference Range Interpretation Comments Sodium Lvl (test code = 136 See_Comment [Au tomated message] 2951-2) The system [facility] [facility] generated this result transmitted ref erence range: 136 - 14 5 mEq/L. The refe rence range was not u sed to interpret this result as normal/abnor mal. Potassium Lvl (test code 3.2 See_Comment L [A utomated message] = 5903-3) The system [facility] [facility] generated this result transmitted ref erence range: 3.5 - 5. 1 mEq/L. The refe rence range was not u sed to interpret this result as normal/abnor mal. Chloride (test code = 97 See_Comment L [Auto mated message] ) The system [employer] [facility] generated this result transmitted ref erence range: 98 - 107 mEq/L. The refe rence range was not u sed to interpret this result as normal/abnor mal. CO2 (test code = 2027-12) 30 See_Comment H [A utomated message] The system [facility] [facility] generated this result transmitted ref erence range: 22 - 29 mEq/L. The reference r josette was not used to interpret this result as normal/abnor mal. Anion Gap (test code = 9 See_Comment [Aut omated message] 16608-3) The system [employer] [facility] generated this result transmitted ref erence range: 4 - 14 m Eq/L. The reference r josette was not used to interpret this result as normal/abnor mal. Lab Interpretation (test Abnormal code = 75350-8) [facility] [id number] 15:18:48 Test Item Value Reference Range Interpretation Comments Sodium Lvl (test code = 136 See_Comment [Au tomated message] 2951-2) The system [employer] [facility] generated this result transmitted ref erence range: 136 - 14 5 mEq/L. The refe rence range was not u sed to interpret this result as normal/abnor mal. Potassium Lvl (test code 3.2 See_Comment L [A utomated message] = 2823-3) The system [facility] [employer] [facility] generated this result transmitted ref erence range: 3.5 - 5. 1 mEq/L. The refe rence range was not u sed to interpret this result as normal/abnor mal. Chloride (test code = 97 See_Comment L [Auto mated message] 0) The system [facility] [employer] [facility] generated this result transmitted ref erence range: 98 - 107 mEq/L. The refe rence range was not u sed to interpret this result as normal/abnor mal. CO2 (test code = 2027-) 30 See_Comment H [A utomated message] The system [facility] [facility] generated this result transmitted ref erence range: 22 - 29 mEq/L. The reference r josette was not used to interpret this result as normal/abnor mal. Anion Gap (test code = 9 See_Comment [Aut omated message] 64505-5) The system [facility] [employer] [facility] generated this result transmitted ref erence range: 4 - 14 m Eq/L. The reference r josette was not used to interpret this result as normal/abnor mal. Lab Interpretation (test Abnormal code = 98537-4) [facility] [id number] 15:18:48 Test Item Value Reference Range Interpretation Comments Sodium Lvl (test code = 136 See_Comment [Au tomated message] 2951-2) The system [facility] [facility] generated this result transmitted ref erence range: 136 - 14 5 mEq/L. The refe rence range was not u sed to interpret this result as normal/abnor mal. Potassium Lvl (test code 3.2 See_Comment L [A utomated message] = 2823-3) The system [facility] [employer] [facility] generated this result transmitted ref erence range: 3.5 - 5. 1 mEq/L. The refe rence range was not u sed to interpret this result as normal/abnor mal. Chloride (test code = 97 See_Comment L [Auto mated message] ) The system [facility] [facility] generated this result transmitted ref erence range: 98 - 107 mEq/L. The refe rence range was not u sed to interpret this result as normal/abnor mal. CO2 (test code = 2027-12) 30 See_Comment H [A utomated message] The system [facility] [employer] [facility] generated this result transmitted ref erence range: 22 - 29 mEq/L. The reference r josette was not used to interpret this result as normal/abnor mal. Anion Gap (test code = 9 See_Comment [Aut omated message] 41162-4) The system [facility] [employer] [facility] generated this result transmitted ref erence range: 4 - 14 m Eq/L. The reference r josette was not used to interpret this result as normal/abnor mal. Lab Interpretation (test Abnormal code = 48281-3) [facility] [place] [id number] 15:18:48 Test Item Value Reference Range Interpretation Comments Sodium Lvl (test code = 136 See_Comment [Au tomated message] 2951-2) The system [employer] [facility] generated this result transmitted ref erence range: 136 - 14 5 mEq/L. The refe rence range was not u sed to interpret this result as normal/abnor mal. Potassium Lvl (test code 3.2 See_Comment L [A utomated message] = 2823-3) The system [facility] [employer] [facility] generated this result transmitted ref erence range: 3.5 - 5. 1 mEq/L. The refe rence range was not u sed to interpret this result as normal/abnor mal. Chloride (test code = 97 See_Comment L [Auto mated message] ) The system [facility] [facility] generated this result transmitted ref erence range: 98 - 107 mEq/L. The refe rence range was not u sed to interpret this result as normal/abnor mal. CO2 (test code = 2027-12) 30 See_Comment H [A utomated message] The system [facility] [employer] [facility] generated this result transmitted ref erence range: 22 - 29 mEq/L. The reference r josette was not used to interpret this result as normal/abnor mal. Anion Gap (test code = 9 See_Comment [Aut omated message] 33167-9) The system [facility] [employer] [facility] generated this result transmitted ref erence range: 4 - 14 m Eq/L. The reference r josette was not used to interpret this result as normal/abnor mal. Lab Interpretation (test Abnormal code = 07921-5) [facility] [place] [id number] 15:18:48 Test Item Value Reference Range Interpretation Comments Sodium Lvl (test code = 136 See_Comment [Au tomated message] 8781-2) The system [facility] [employer] [facility] generated this result transmitted ref erence range: 136 - 14 5 mEq/L. The refe rence range was not u sed to interpret this result as normal/abnor mal. Potassium Lvl (test code 3.2 See_Comment L [A utomated message] = 3463-3) The system [facility] [employer] [facility] generated this result transmitted ref erence range: 3.5 - 5. 1 mEq/L. The refe rence range was not u sed to interpret this result as normal/abnor mal. Chloride (test code = 97 See_Comment L [Auto mated message] ) The system [facility] [employer] [facility] generated this result transmitted ref erence range: 98 - 107 mEq/L. The refe rence range was not u sed to interpret this result as normal/abnor mal. CO2 (test code = 2027-12) 30 See_Comment H [A utomated message] The system [facility] [employer] [facility] generated this result transmitted ref erence range: 22 - 29 mEq/L. The reference r josette was not used to interpret this result as normal/abnor mal. Anion Gap (test code = 9 See_Comment [Aut omated message] 51467-2) The system [employer] [facility] generated this result transmitted ref erence range: 4 - 14 m Eq/L. The reference r josette was not used to interpret this result as normal/abnor mal. Lab Interpretation (test Abnormal code = 32719-9) [facility]Serum Oyvvmdwrwp8760-55-13 15:18:46 Test Item Value Reference Range Interpretation Comments Creatinine (test code = 2160-0) 1.15 mg/dL 0.51-0.95 H Lab Interpretation (test code = Abnormal 02846-7) [facility]Serum Juynbsndzs1293-31-09 15:18:46 Test Item Value Reference Range Interpretation Comments Creatinine (test code = 2160-0) 1.15 mg/dL 0.51-0.95 H Lab Interpretation (test code = Abnormal 74295-8) [facility]Serum [id number] 15:18:46 Test Item Value Reference Range Interpretation Comments Creatinine (test code = 2160-0) 1.15 mg/dL 0.51-0.95 H Lab Interpretation (test code = Abnormal 16348-9) [facility].Serum [id number] 15:18:46 Test Item Value Reference Range Interpretation Comments Creatinine (test code = 2160-0) 1.15 mg/dL 0.51-0.95 H Lab Interpretation (test code = Abnormal 59342-0) [facility].Serum Djolrwckqz4509-09-18 15:18:46 Test Item Value Reference Range Interpretation Comments Creatinine (test code = 2160-0) 1.15 mg/dL 0.51-0.95 H Lab Interpretation (test code = Abnormal 68051-4) [facility]Serum [id number] 15:18:46 Test Item Value Reference Range Interpretation Comments Creatinine (test code = 2160-0) 1.15 mg/dL 0.51-0.95 H Lab Interpretation (test code = Abnormal 54148-4) [facility].Serum [id number] 15:18:46 Test Item Value Reference Range Interpretation Comments Creatinine (test code = 2160-0) 1.15 mg/dL 0.51-0.95 H Lab Interpretation (test code = Abnormal 19016-4) [facility].Serum [id number] 15:18:46 Test Item Value Reference Range Interpretation Comments Creatinine (test code = 2160-0) 1.15 mg/dL 0.51-0.95 H Lab Interpretation (test code = Abnormal 04562-9) [facility]Serum [id number] 15:18:46 Test Item Value Reference Range Interpretation Comments Creatinine (test code = 2160-0) 1.15 mg/dL 0.51-0.95 H Lab Interpretation (test code = Abnormal 37333-7) [facility] [id number] 15:18:44 Test Item Value Reference Range Interpretation Comments Uric Acid (test code = 3084-1) 4.9 mg/dL 2.4-5.[address] [facility] [id number] 15:18:44 Test Item Value Reference Range Interpretation Comments Uric Acid (test code = 3084-1) 4.9 mg/dL 2.4-5.[address] [id number] 15:18:44 Test Item Value Reference Range Interpretation Comments Uric Acid (test code = 3084-1) 4.9 mg/dL 2.4-5.[address] [id number] 15:18:44 Test Item Value Reference Range Interpretation Comments Uric Acid (test code = 3084-1) 4.9 mg/dL 2.4-5.[address] [id number] 15:18:44 Test Item Value Reference Range Interpretation Comments Uric Acid (test code = 3084-1) 4.9 mg/dL 2.4-5.[address] [facility] [id number] 15:18:44 Test Item Value Reference Range Interpretation Comments Uric Acid (test code = 3084-1) 4.9 mg/dL 2.4-5.[address] [facility] [id number] 15:18:44 Test Item Value Reference Range Interpretation Comments Uric Acid (test code = 3084-1) 4.9 mg/dL 2.4-5.[address] [id number] 15:18:44 Test Item Value Reference Range Interpretation Comments Uric Acid (test code = 3084-1) 4.9 mg/dL 2.4-5.[address] [id number] 15:18:44 Test Item Value Reference Range Interpretation Comments Uric Acid (test code = 3084-1) 4.9 mg/dL 2.4-5.[address] [facility] [id number] 15:18:43 Test Item Value Reference Range Interpretation Comments Total Protein (test code = 2885-2) 6.6 g/dL 6.4-8.[address] [facility] [id number] 15:18:43 Test Item Value Reference Range Interpretation Comments Total Protein (test code = 2885-2) 6.6 g/dL 6.4-8.[address] [facility] [id number] 15:18:43 Test Item Value Reference Range Interpretation Comments Total Protein (test code = 2885-2) 6.6 g/dL 6.4-8.[address] [facility] [id number] 15:18:43 Test Item Value Reference Range Interpretation Comments Total Protein (test code = 2885-2) 6.6 g/dL 6.4-8.[address] [facility] [id number] 15:18:43 Test Item Value Reference Range Interpretation Comments Total Protein (test code = 2885-2) 6.6 g/dL 6.4-8.[address] [facility] [id number] 15:18:43 Test Item Value Reference Range Interpretation Comments Total Protein (test code = 2885-2) 6.6 g/dL 6.4-8.[address] [facility] Eorepdu7542-57-46 15:18:43 Test Item Value Reference Range Interpretation Comments Total Protein (test code = 2885-2) 6.6 g/dL 6.4-8.[address] [facility] [facility] [id number] 15:18:43 Test Item Value Reference Range Interpretation Comments Total Protein (test code = 2885-2) 6.6 g/dL 6.4-8.[address] [facility] Mpwniku8860-27-06 15:18:43 Test Item Value Reference Range Interpretation Comments Total Protein (test code = 2885-2) 6.6 g/dL 6.4-8.[address] [facility] [id number] 15:18:42 Test Item Value Reference Range Interpretation Comments Phosphorus (test code = 2777-1) 2.4 mg/dL 2.5-4.5 L Lab Interpretation (test code = Abnormal 16866-5) [facility] [id number] 15:18:42 Test Item Value Reference Range Interpretation Comments Phosphorus (test code = 2777-1) 2.4 mg/dL 2.5-4.5 L Lab Interpretation (test code = Abnormal 22242-3) [facility] [id number] 15:18:42 Test Item Value Reference Range Interpretation Comments Phosphorus (test code = 2777-1) 2.4 mg/dL 2.5-4.5 L Lab Interpretation (test code = Abnormal 78436-5) [facility] [id number] 15:18:42 Test Item Value Reference Range Interpretation Comments Phosphorus (test code = 2777-1) 2.4 mg/dL 2.5-4.5 L Lab Interpretation (test code = Abnormal 64257-0) [facility] [id number] 15:18:42 Test Item Value Reference Range Interpretation Comments Phosphorus (test code = 2777-1) 2.4 mg/dL 2.5-4.5 L Lab Interpretation (test code = Abnormal 26283-7) [facility] Warkp8832-11-08 15:18:42 Test Item Value Reference Range Interpretation Comments Phosphorus (test code = 2777-1) 2.4 mg/dL 2.5-4.5 L Lab Interpretation (test code = Abnormal 54859-9) [facility] [id number] 15:18:42 Test Item Value Reference Range Interpretation Comments Phosphorus (test code = 2777-1) 2.4 mg/dL 2.5-4.5 L Lab Interpretation (test code = Abnormal 13403-2) [facility] [id number] 15:18:42 Test Item Value Reference Range Interpretation Comments Phosphorus (test code = 2777-1) 2.4 mg/dL 2.5-4.5 L Lab Interpretation (test code = Abnormal 01790-2) [facility] [id number] 15:18:42 Test Item Value Reference Range Interpretation Comments Phosphorus (test code = 2777-1) 2.4 mg/dL 2.5-4.5 L Lab Interpretation (test code = Abnormal 77222-2) [facility] [id number] 15:18:41 Test Item Value Reference Range Interpretation Comments Calcium Lvl (test code = 51559-9) 9.0 mg/dL 8.4-10.[address] [facility] [id number] 15:18:41 Test Item Value Reference Range Interpretation Comments Calcium Lvl (test code = 26116-4) 9.0 mg/dL 8.4-10.[address] [facility] [id number] 15:18:41 Test Item Value Reference Range Interpretation Comments Calcium Lvl (test code = 77788-6) 9.0 mg/dL 8.4-10.[address] Erbdl7108-36-04 15:18:41 Test Item Value Reference Range Interpretation Comments Calcium Lvl (test code = 80844-6) 9.0 mg/dL 8.4-10.[address] [facility] [id number] 15:18:41 Test Item Value Reference Range Interpretation Comments Calcium Lvl (test code = 37086-6) 9.0 mg/dL 8.4-10.[address] [facility] [id number] 15:18:41 Test Item Value Reference Range Interpretation Comments Calcium Lvl (test code = 80472-4) 9.0 mg/dL 8.4-10.[address] [facility] [id number] 15:18:41 Test Item Value Reference Range Interpretation Comments Calcium Lvl (test code = 43602-9) 9.0 mg/dL 8.4-10.[address] [facility] Lkvms4815-37-17 15:18:41 Test Item Value Reference Range Interpretation Comments Calcium Lvl (test code = 29498-4) 9.0 mg/dL 8.4-10.[address] [facility] Akdar1136-48-15 15:18:41 Test Item Value Reference Range Interpretation Comments Calcium Lvl (test code = 65043-6) 9.0 mg/dL 8.4-10.2 [place] 34625022-10-19 15:18:40 Test Item Value Reference Range Interpretation Comments ALT (test code = 1742-6) 12 U/L <=33 [place] 34625022-10-19 15:18:40 Test Item Value Reference Range Interpretation Comments ALT (test code = 1742-6) 12 U/L <=33 [place] 34625022-10-19 15:18:40 Test Item Value Reference Range Interpretation Comments ALT (test code = 1742-6) 12 U/L <=33 [place] 34625022-10-19 15:18:40 Test Item Value Reference Range Interpretation Comments ALT (test code = 12 U/L See_Comment [Automated message] The 1741-09) system which ge nerated this result transmit jenny reference range : <=33. The reference range was not used to interpr et this result as lani l/abnormal. [place] 34625022-10-19 15:18:40 Test Item Value Reference Range Interpretation Comments ALT (test code = 12 U/L See_Comment [Automated message] The 1741-09) system which ge nerated this result transmit jenny reference range : <=33. The reference range was not used to interpr et this result as lani l/abnormal. [place] 34625022-10-19 15:18:40 Test Item Value Reference Range Interpretation Comments ALT (test code = 12 U/L See_Comment [Automated message] The 1741-09) system which ge nerated this result transmit jenny reference range : <=33. The reference range was not used to interpr et this result as lani l/abnormal. [place] 34625022-10-19 15:18:40 Test Item Value Reference Range Interpretation Comments ALT (test code = 12 U/L See_Comment [Automated message] The 1742-6) system which ge nerated this result transmit jenny reference range : <=33. The reference range was not used to interpr et this result as lani l/abnormal. [facility] 15:18:40 Test Item Value Reference Range Interpretation Comments ALT (test code = 1742-6) 12 U/L <=[address] [facility]10-19 15:18:40 Test Item Value Reference Range Interpretation Comments ALT (test code = 1742-6) 12 U/L <=[address] [facility] 15:18:39 Test Item Value Reference Range Interpretation Comments BUN (test code = 3094-0) 21 mg/dL - [facility] 15:18:39 Test Item Value Reference Range Interpretation Comments BUN (test code = 3094-0) 21 mg/dL 6- [facility] 15:18:39 Test Item Value Reference Range Interpretation Comments BUN (test code = 3094-0) 21 mg/dL - [facility] 15:18:39 Test Item Value Reference Range Interpretation Comments BUN (test code = 3094-0) 21 mg/dL - [facility] 15:18:39 Test Item Value Reference Range Interpretation Comments BUN (test code = 3094-0) 21 mg/dL 6- [facility] 15:18:39 Test Item Value Reference Range Interpretation Comments BUN (test code = 3094-0) [facility] 15:18:39 Test Item Value Reference Range Interpretation Comments BUN (test code = 3094-0) 21 mg/dL - [facility] 15:18:39 Test Item Value Reference Range Interpretation Comments BUN (test code = 3094-0) 21 mg/dL 6- [facility] 15:18:39 Test Item Value Reference Range Interpretation Comments BUN (test code = 3094-0) 21 mg/dL 6- [facility] Srhkr0215-60-21 15:18:38 Test Item Value Reference Range Interpretation [...] diabetes Lab Interpretation (test Abnormal code = 37667-2) [facility] [id number] 15:18:38 Test Item Value Reference Range Interpretation [...] diabetes Lab Interpretation (test Abnormal code = 31793-8) [facility] Catsw3622-33-25 15:18:38 Test Item Value Reference Range Interpretation [...] diabetes Lab Interpretation (test Abnormal code = 80024-7) [facility] [id number] 15:18:38 Test Item Value Reference Range Interpretation [...] diabetes Lab Interpretation (test Abnormal code = 82671-0) [facility] [id number] 15:18:38 Test Item Value Reference Range Interpretation [...] diabetes Lab Interpretation (test Abnormal code = 57351-6) [facility] [id number] 15:18:38 Test Item Value Reference Range Interpretation [...] diabetes Lab Interpretation (test Abnormal code = 15493-3) [facility] [id number] 15:18:38 Test Item Value Reference Range Interpretation [...] diabetes Lab Interpretation (test Abnormal code = 00420-4) [facility] Bzlyz8860-57-13 15:18:38 Test Item Value Reference Range Interpretation [...] diabetes Lab Interpretation (test Abnormal code = 11473-6) [facility] [id number] 15:18:38 Test Item Value Reference Range Interpretation [...] diabetes Lab Interpretation (test Abnormal code = 61365-3) [facility] 14:48:32 Test Item Value Reference Range Interpretation [...] % 0.0-0.4 H IGRE % c ount 97421-8) includes Metamyelocytes, Myelocytes, and Promyelocytes. Neutrophil Abs (test code 1.94 K/uL 1.70-7.30 = 751-8) Lymphocyte Abs (test code 1.33 K/uL 1.00-4.80 = 731-0) Monocyte Abs (test code = 0.64 K/uL 0.08-0.70 742-7) Eosinophil Abs (test code 0.26 K/uL 0.04-0.40 = 711-2) Basophil Abs (test code = 0.03 K/uL 0.00-0.10 704-7) IG Abs (test code = 0.03 K/uL 0.00-0.04 07865-4) Lab Interpretation (test Abnormal code = 92635-0) [facility] 14:48:32 Test Item Value Reference Range Interpretation [...] % 0.0-0.4 H IGRE % c [place]unt 02987-9) includes Metamyelocytes, Myelocytes, and Promyelocytes. Neutrophil Abs (test code 1.94 K/uL 1.70-7.30 = 751-8) Lymphocyte Abs (test code 1.33 K/uL 1.00-4.80 = 731-0) Monocyte Abs (test code = 0.64 K/uL 0.08-0.70 742-7) Eosinophil Abs (test code 0.26 K/uL 0.04-0.40 = 711-2) Basophil Abs (test code = 0.03 K/uL 0.00-0.10 704-7) IG Abs (test code = 0.03 K/uL 0.00-0.04 74998-1) Lab Interpretation (test Abnormal code = 89974-9) [facility] 14:48:32 Test Item Value Reference Range Interpretation [...] % 0.0-0.4 H IGRE % [place] 50067-7) includes Metamyelocytes, Myelocytes, and Promyelocytes. Neutrophil Abs (test code 1.94 K/uL 1.70-7.30 = 751-8) Lymphocyte Abs (test code 1.33 K/uL 1.00-4.80 = 731-0) Monocyte Abs (test code = 0.64 K/uL 0.08-0.70 742-7) Eosinophil Abs (test code 0.26 K/uL 0.04-0.40 = 711-2) Basophil Abs (test code = 0.03 K/uL 0.00-0.10 704-7) IG Abs (test code = 0.03 K/uL 0.00-0.04 86419-8) Lab Interpretation (test Abnormal code = 77671-8) [facility] ClgbghBqiqzwxkodbs1400-12-88 14:48:32 Test Item Value Reference Range Interpretation [...] % 0.0-0.4 H IGRE % c [place]unt 42017-8) includes Metamyelocytes, Myelocytes, and Promyelocytes. Neutrophil Abs (test code 1.94 K/uL 1.70-7.30 = 751-8) Lymphocyte Abs (test code 1.33 K/uL 1.00-4.80 = 731-0) Monocyte Abs (test code = 0.64 K/uL 0.08-0.70 742-7) Eosinophil Abs (test code 0.26 K/uL 0.04-0.40 = 711-2) Basophil Abs (test code = 0.03 K/uL 0.00-0.10 704-7) IG Abs (test code = 0.03 K/uL 0.00-0.04 34627-8) Lab Interpretation (test Abnormal code = 52817-3) [facility] 14:48:32 Test Item Value Reference Range Interpretation [...] % 0.0-0.4 H IGRE % [place] 74234-5) includes Metamyelocytes, Myelocytes, and Promyelocytes. Neutrophil Abs (test code 1.94 K/uL 1.70-7.30 = 751-8) Lymphocyte Abs (test code 1.33 K/uL 1.00-4.80 = 731-0) Monocyte Abs (test code = 0.64 K/uL 0.08-0.70 742-7) Eosinophil Abs (test code 0.26 K/uL 0.04-0.40 = 711-2) Basophil Abs (test code = 0.03 K/uL 0.00-0.10 704-7) IG Abs (test code = 0.03 K/uL 0.00-0.04 76165-4) Lab Interpretation (test Abnormal code = 13666-3) [facility] 14:48:32 Test Item Value Reference Range Interpretation [...] % 0.0-0.4 H IGRE % [place] 44354-0) includes Metamyelocytes, Myelocytes, and Promyelocytes. Neutrophil Abs (test code 1.94 K/uL 1.70-7.30 = 751-8) Lymphocyte Abs (test code 1.33 K/uL 1.00-4.80 = 731-0) Monocyte Abs (test code = 0.64 K/uL 0.08-0.70 742-7) Eosinophil Abs (test code 0.26 K/uL 0.04-0.40 = 711-2) Basophil Abs (test code = 0.03 K/uL 0.00-0.10 704-7) IG Abs (test code = 0.03 K/uL 0.00-0.04 57029-5) Lab Interpretation (test Abnormal code = 56808-7) [facility] XrbawiCsnlnxhfiovz5480-79-68 14:48:32 Test Item Value Reference Range Interpretation [...] % 0.0-0.4 H IGRE % [place] 53011-5) includes Metamyelocytes, Myelocytes, and Promyelocytes. Neutrophil Abs (test code 1.94 K/uL 1.70-7.30 = 751-8) Lymphocyte Abs (test code 1.33 K/uL 1.00-4.80 = 731-0) Monocyte Abs (test code = 0.64 K/uL 0.08-0.70 742-7) Eosinophil Abs (test code 0.26 K/uL 0.04-0.40 = 711-2) Basophil Abs (test code = 0.03 K/uL 0.00-0.10 704-7) IG Abs (test code = 0.03 K/uL 0.00-0.04 41079-0) Lab Interpretation (test Abnormal code = 20300-1) [facility] 14:48:32 Test Item Value Reference Range Interpretation [...] % 0.0-0.4 H IGRE % c [place]unt 36187-7) includes Metamyelocytes, Myelocytes, and Promyelocytes. Neutrophil Abs (test code 1.94 K/uL 1.70-7.30 = 751-8) Lymphocyte Abs (test code 1.33 K/uL 1.00-4.80 = 731-0) Monocyte Abs (test code = 0.64 K/uL 0.08-0.70 742-7) Eosinophil Abs (test code 0.26 K/uL 0.04-0.40 = 711-2) Basophil Abs (test code = 0.03 K/uL 0.00-0.10 704-7) IG Abs (test code = 0.03 K/uL 0.00-0.04 52188-3) Lab Interpretation (test Abnormal code = 86834-5) [facility] 14:48:32 Test Item Value Reference Range Interpretation [...] % 0.0-0.4 H IGRE % [place]unt 17016-7) includes Metamyelocytes, Myelocytes, and Promyelocytes. Neutrophil Abs (test code 1.94 K/uL 1.70-7.30 = 751-8) Lymphocyte Abs (test code 1.33 K/uL 1.00-4.80 = 731-0) Monocyte Abs (test code = 0.64 K/uL 0.08-0.70 742-7) Eosinophil Abs (test code 0.26 K/uL 0.04-0.40 = 711-2) Basophil Abs (test code = 0.03 K/uL 0.00-0.10 704-7) IG Abs (test code = 0.03 K/uL 0.00-0.04 99769-1) Lab Interpretation (test Abnormal code = 42008-5) [facility] [place].[id number] 14:48:17 Test Item Value Reference Range Interpretation Comments WBC (test code = 4.2 K/uL 4.0-11.0 6690-2) RBC (test code = 789-8) 3.02 See_Comment L [Au tomated message] The system [employer] generated this result transmitted ref erence range: 4.00 - 5 .50 M/uL. The refer ence range was not u sed to interpret this result as normal/abnor mal. Hgb (test code = 718-7) 10.5 See_Comment L [Au tomated message] The system [employer] generated this result transmitted ref erence range: [...] See_Comment [Automate d message] 786-4) The system [employer] generated this result transmitted ref erence range: 31.0 - 3 6.0 gm/dL. The refe rence range was not u sed to interpret this result as normal/abnor mal. RDW-SD (test code = 64.1 fL 35.1-46.3 H 98221-2) RDW-CV (test code = 17.4 % 12.0-15.5 H 788-0) Platelet count (test 148 K/uL 140-440 code = 777-3) MPV (test code = 12.9 fL 4.0-10.4 H 93472-5) INRBC (test code = 0.0 % <=0.0 The INRBC (instrument 79809-9) NRBC) value ref lects the enumeration of nucleated red b lood cells contained in a 200uL sampleof whole blood analyzed by the instrument. Thi s value maydiffer from the NRBC value repo rted in a manual differential,wh ich is based on a 100 cell differential. Lab Interpretation Abnormal (test code = 38084-3) [facility] [place].[id number] 14:48:17 Test Item Value Reference Range Interpretation Comments WBC (test code = 4.2 K/uL 4.0-11.0 6690-2) RBC (test code = 789-8) 3.02 See_Comment L [Au tomated message] The system [employer] generated this result transmitted ref erence range: 4.00 - 5 .50 M/uL. The refer ence range was not u sed to interpret this result as normal/abnor mal. Hgb (test code = 718-7) 10.5 See_Comment L [Au tomated message] The system [employer] generated this result transmitted ref erence range: [...] See_Comment [Automate d message] 786-4) The system [employer] generated this result transmitted ref erence range: 31.0 - 3 6.0 gm/dL. The refe rence range was not u sed to interpret this result as normal/abnor mal. RDW-SD (test code = 64.1 fL 35.1-46.3 H 28426-9) RDW-CV (test code = 17.4 % 12.0-15.5 H 788-0) Platelet count (test 148 K/uL 140-440 code = 777-3) MPV (test code = 12.9 fL 4.0-10.4 H 58686-6) INRBC (test code = 0.0 % <=0.0 The INRBC (instrument 62467-5) NRBC) value ref lects the enumeration of nucleated red b lood cells contained in a 200uL sampleof whole blood analyzed by the instrument. Thi s value maydiffer from the NRBC value repo rted in a manual differential,wh ich is based on a 100 cell differential. Lab Interpretation Abnormal (test code = 55013-6) [facility] [place].[id number] 14:48:17 Test Item Value Reference Range Interpretation Comments WBC (test code = 4.2 K/uL 4.0-11.0 6690-2) RBC (test code = 789-8) 3.02 See_Comment L [Au tomated message] The system [employer] generated this result transmitted ref erence range: 4.00 - 5 .50 M/uL. The refer ence range was not u sed to interpret this result as normal/abnor mal. Hgb (test code = 718-7) 10.5 See_Comment L [Au tomated message] The system [employer] generated this result transmitted ref erence range: [...] See_Comment [Automate d message] 786-4) The system [employer] generated this result transmitted ref erence range: 31.0 - 3 6.0 gm/dL. The refe rence range was not u sed to interpret this result as normal/abnor mal. RDW-SD (test code = 64.1 fL 35.1-46.3 H 37444-8) RDW-CV (test code = 17.4 % 12.0-15.5 H 788-0) Platelet count (test 148 K/uL 140-440 code = 777-3) MPV (test code = 12.9 fL 4.0-10.4 H 94046-4) INRBC (test code = 0.0 % <=0.0 The INRBC (instrument 95054-6) NRBC) value ref lects the enumeration of nucleated red b lood cells contained in a 200uL sampleof whole blood analyzed by the instrument. Thi s value maydiffer from the NRBC value repo rted in a manual differential,wh ich is based on a 100 cell differential. Lab Interpretation Abnormal (test code = 99623-1) [facility] [place].[id number] 14:48:17 Test Item Value Reference Range Interpretation Comments WBC (test code = 4.2 K/uL 4.0-11.0 6690-2) RBC (test code = 789-8) 3.02 See_Comment L [Au tomated message] The system [employer] generated this result transmitted ref erence range: 4.00 - 5 .50 M/uL. The refer ence range was not u sed to interpret this result as normal/abnor mal. Hgb (test code = 718-7) 10.5 See_Comment L [Au tomated message] The system [employer] generated this result transmitted ref erence range: [...] See_Comment [Automate d message] 786-4) The system [employer] generated this result transmitted ref erence range: 31.0 - 3 6.0 gm/dL. The refe rence range was not u sed to interpret this result as normal/abnor mal. RDW-SD (test code = 64.1 fL 35.1-46.3 H 04941-8) RDW-CV (test code = 17.4 % 12.0-15.5 H 788-0) Platelet count (test 148 K/uL 140-440 code = 777-3) MPV (test code = 12.9 fL 4.0-10.4 H 29900-6) INRBC (test code = 0.0 % See_Comment The INRBC (instrument 18234-5) NRBC) value ref lects the enumeration of nucleated red b lood cells contained in a 200uL sampleof whole blood analyzed by the instrument. Thi s value maydiffer from the NRBC value repo rted in a manual differential,wh ich is based on a 100 cell differential. [Automated mess age] The system [employer] generated this result transmitted ref erence range: <=0.0. T he reference range was not used to int erpret this result as normal/abnormal . Lab Interpretation Abnormal (test code = 82880-1) [facility] [place].[id number] 14:48:17 Test Item Value Reference Range Interpretation Comments WBC (test code = 4.2 K/uL 4.0-11.0 6690-2) RBC (test code = 789-8) 3.02 See_Comment L [Au tomated message] The system [employer] generated this result transmitted ref erence range: 4.00 - 5 .50 M/uL. The refer ence range was not u sed to interpret this result as normal/abnor mal. Hgb (test code = 718-7) 10.5 See_Comment L [Au tomated message] The system [employer] generated this result transmitted ref erence range: [...] See_Comment [Automate d message] 786-4) The system [employer] generated this result transmitted ref erence range: 31.0 - 3 6.0 gm/dL. The refe rence range was not u sed to interpret this result as normal/abnor mal. RDW-SD (test code = 64.1 fL 35.1-46.3 H 73687-6) RDW-CV (test code = 17.4 % 12.0-15.5 H 788-0) Platelet count (test 148 K/uL 140-440 code = 777-3) MPV (test code = 12.9 fL 4.0-10.4 H 18681-9) INRBC (test code = 0.0 % See_Comment The INRBC (instrument 16060-0) NRBC) value ref lects the enumeration of nucleated red b lood cells contained in a 200uL sampleof whole blood analyzed by the instrument. Thi s value maydiffer from the NRBC value repo rted in a manual differential,wh ich is based on a 100 cell differential. [Automated mess age] The system [employer] generated this result transmitted ref erence range: <=0.0. T he reference range was not used to int erpret this result as normal/abnormal . Lab Interpretation Abnormal (test code = 06369-0) [facility] [place].[id number] 14:48:17 Test Item Value Reference Range Interpretation Comments WBC (test code = 4.2 K/uL 4.0-11.0 6690-2) RBC (test code = 789-8) 3.02 See_Comment L [Au tomated message] The system [employer] generated this result transmitted ref erence range: 4.00 - 5 .50 M/uL. The refer ence range was not u sed to interpret this result as normal/abnor mal. Hgb (test code = 718-7) 10.5 See_Comment L [Au tomated message] The system [employer] generated this result transmitted ref erence range: [...] See_Comment [Automate d message] 786-4) The system [employer] generated this result transmitted ref erence range: 31.0 - 3 6.0 gm/dL. The refe rence range was not u sed to interpret this result as normal/abnor mal. RDW-SD (test code = 64.1 fL 35.1-46.3 H 78318-7) RDW-CV (test code = 17.4 % 12.0-15.5 H 788-0) Platelet count (test 148 K/uL 140-440 code = 777-3) MPV (test code = 12.9 fL 4.0-10.4 H 66759-6) INRBC (test code = 0.0 % See_Comment The INRBC (instrument 30353-5) NRBC) value ref lects the enumeration of nucleated red b lood cells contained in a 200uL sampleof whole blood analyzed by the instrument. Thi s value maydiffer from the NRBC value repo rted in a manual differential,wh ich is based on a 100 cell differential. [Automated mess age] The system [employer] generated this result transmitted ref erence range: <=0.0. T he reference range was not used to int erpret this result as normal/abnormal . Lab Interpretation Abnormal (test code = 98695-0) [facility] [place].[id number] 14:48:17 Test Item Value Reference Range Interpretation Comments WBC (test code = 4.2 K/uL 4.0-11.0 6690-2) RBC (test code = 789-8) 3.02 See_Comment L [Au tomated message] The system [employer] generated this result transmitted ref erence range: 4.00 - 5 .50 M/uL. The refer ence range was not u sed to interpret this result as normal/abnor mal. Hgb (test code = 718-7) 10.5 See_Comment L [Au tomated message] The system [employer] generated this result transmitted ref erence range: [...] See_Comment [Automate d message] 786-4) The system [facility] generated this result transmitted ref erence range: 31.0 - 3 6.0 gm/dL. The refe rence range was not u sed to interpret this result as normal/abnor mal. RDW-SD (test code = 64.1 fL 35.1-46.3 H 12353-5) RDW-CV (test code = 17.4 % 12.0-15.5 H 788-0) Platelet count (test 148 K/uL 140-440 code = 777-3) MPV (test code = 12.9 fL 4.0-10.4 H 11282-9) INRBC (test code = 0.0 % See_Comment The INRBC (instrument 00634-8) NRBC) value ref lects the enumeration of nucleated red b lood cells contained in a 200uL sampleof whole blood analyzed by the instrument. Thi s value maydiffer from the NRBC value repo rted in a manual differential,wh ich is based on a 100 cell differential. [Automated mess age] The system [facility] generated this result transmitted ref erence range: <=0.0. T he reference range was not used to int erpret this result as normal/abnormal . Lab Interpretation Abnormal (test code = 37192-5) [facility] [place].[id number] 14:48:17 Test Item Value Reference Range Interpretation Comments WBC (test code = 4.2 K/uL 4.0-11.0 6690-2) RBC (test code = 789-8) 3.02 See_Comment L [Au tomated message] The system [facility] generated this result transmitted ref erence range: 4.00 - 5 .50 M/uL. The refer ence range was not u sed to interpret this result as normal/abnor mal. Hgb (test code = 718-7) 10.5 See_Comment L [Au tomated message] The system [facility] [employer] [facility] generated this result transmitted ref erence range: [...] See_Comment [Automate d message] 786-4) The system [facility] [employer] [facility] generated this result transmitted ref erence range: 31.0 - 3 6.0 gm/dL. The refe rence range was not u sed to interpret this result as normal/abnor mal. RDW-SD (test code = 64.1 fL 35.1-46.3 H 92934-4) RDW-CV (test code = 17.4 % 12.0-15.5 H 788-0) Platelet count (test 148 K/uL 140-440 code = 777-3) MPV (test code = 12.9 fL 4.0-10.4 H 12397-6) INRBC (test code = 0.0 % <=0.0 The INRBC (instrument 01579-6) NRBC) value ref lects the enumeration of nucleated red b lood cells contained in a 200uL sampleof whole blood analyzed by the instrument. Thi s value maydiffer from the NRBC value repo rted in a manual differential,wh ich is based on a 100 cell differential. Lab Interpretation Abnormal (test code = 89003-6) [facility] [place].[id number] 14:48:17 Test Item Value Reference Range Interpretation Comments WBC (test code = 4.2 K/uL 4.0-11.0 6690-2) RBC (test code = 789-8) 3.02 See_Comment L [Au tomated message] The system [facility] [employer] [facility] generated this result transmitted ref erence range: 4.00 - 5 .50 M/uL. The refer ence range was not u sed to interpret this result as normal/abnor mal. Hgb (test code = 718-7) 10.5 See_Comment L [Au tomated message] The system [facility] generated this result transmitted ref erence range: [...] See_Comment [Automate d message] 786-4) The system [facility] [employer] [facility] generated this result transmitted ref erence range: 31.0 - 3 6.0 gm/dL. The refe rence range was not u sed to interpret this result as normal/abnor mal. RDW-SD (test code = 64.1 fL 35.1-46.3 H 32176-6) RDW-CV (test code = 17.4 % 12.0-15.5 H 788-0) Platelet count (test 148 K/uL 140-440 code = 777-3) MPV (test code = 12.9 fL 4.0-10.4 H 59605-5) INRBC (test code = 0.0 % <=0.0 The INRBC (instrument 47468-3) NRBC) value ref lects the enumeration of nucleated red b lood cells contained in a 200uL sampleof whole blood analyzed by the instrument. Thi s value maydiffer from the NRBC value repo rted in a manual differential,wh ich is based on a 100 cell differential. Lab Interpretation Abnormal (test code = 64709-7) [facility] EDMAR Path [id number] 12:10:46UIFE Path IntThe follow-up urine protein immunofixation electrophoretic patterns obtained with the use of antisera against IgG, IgA, IgM, bound kappa and bound lambda light chains, free kappa and free lambda light chains do not show definitive evidence of a Bence-Liang proteinuria. [facility]ONAUn[facility] HospitalUrine EDMAR Path Review 2021-08-06 12:10:46UIFE Path IntThe follow-up urine protein immunofixation electrophoretic patterns obtained with the use of antisera against IgG, IgA, IgM, bound kappa and bound lambda light chains, free kappa and free lambda light chains do not show definitive evidence of a Bence-Liang proteinuria. [facility]ONAUnQu[facility] HospitalUrine EDMAR Path [id number] 12:10:46UIFE Path IntThe follow-up urine protein immunofixation electrophoretic patterns obtained with the use of antisera against IgG, IgA, IgM, bound kappa and bound lambda light chains, free kappa and free lambda light chains do not show definitive evidence of a Bence-Liang proteinuria. [facility]ONAUnQu[facility] Surgical HospitalIFE [id number] 12:10:45 Test Item Value Reference Range Interpretation Comments UIFE (test code = 7916) No BJP Seen [facility] [id number] 12:10:45 Test Item Value Reference Range Interpretation Comments UIFE (test code = 7916) No [facility]en [facility] [id number] 12:10:45 Test Item Value Reference Range Interpretation Comments UIFE (test code = 7916) No BJP Seen [facility] HospitalUrine Prot Electrophoresis Path [id number] 12:10:44 Test Item Value Reference Range Interpretation Comments U ProE Path The follow-up urine Int (test protein code = 7803) electrophoretic JOANA pattern does not show [place], [place] [id number] Dictated by: a Bence-Liang protein TRENTON SAAVEDRA MD - peak. [id number] Date/Time: 08.06.2021 7:10 AM CDT Transcribed Date/Time: 08.06.2021 7:10 AM CDTElectronical ly Signed By: MD Gary GIMENEZ 1018 4 on 08.06.2021 7:[address] [facility] HospitalU[facility] Prot Electrophoresis Path [id number] 12:10:44 Test Item Value Reference Range Interpretation Comments U ProE Path The follow-up urine Int (test protein code = 7803) electrophoretic JOANA pattern does not show [place], [place] [address] Dictated by: a Bence-Liang protein TRENTON SAAVEDRA MD - peak. [id number] Date/Time: 08.06.2021 7:10 AM CDT Transcribed Date/Time: 08.06.2021 7:10 AM CDTElectronical ly Signed By: MD Gary GIMENEZ 1018 4 on 08.06.2021 7:[address] Hospital[facility] Prot Electrophoresis Path [id number] 12:10:44 Test Item Value Reference Range Interpretation Comments U ProE Path The follow-up urine Int (test protein code = 7803) electrophoretic JOANA pattern does not show [place]Y, [place] [id number] Dictated by: a Bence-Liang protein TRENTON SAAVEDRA MD - peak. [id number] Date/Time: 08.06.2021 7:10 AM CDT Transcribed Date/Time: 08.06.2021 7:10 AM CDTElectronical ly Signed By: BRIAN SAAVEDRA MD - 1018 4 on 08.06.2021 7:[address] [facility] HospitalProtein Electrophoresis Urine 2021-08-06 12:10:43 Test Item Value Reference Range Interpretation Comments U Albumin % (test code = 7676) 44.3 % U Globulin% (test code = 8523) 55.7 % [facility] HospitalProtein Electrophoresis Urine 2021-08-06 12:10:43 Test Item Value Reference Range Interpretation Comments U Albumin % (test code = 7676) 44.3 % U Globulin% (test code = 8523) 55.7 % [facility] HospitalProtein Electrophoresis Urine 2021-08-06 12:10:43 Test Item Value Reference Range Interpretation Comments U Albumin % (test code = 7676) 44.3 % U Globulin% (test code = 8523) 55.7 % [facility] Path [id number] 12:08:14 EDMAR Path IntThe follow-up serum protein immunofixation electrophoretic patterns obtained with the use of antisera against IgG, IgA, IgM, bound kappa and bound lambda light chains are suggestive of an oligoclonal gammopathy. Follow-up serum protein electrophoretic studies and correlation with the clinical findings, however, are suggested. [facility]ONAUnQu[facility] HospitalIFE Path [id number] 12:08:14IFE Path IntThe follow- up serum protein immunofixation electrophoretic patterns obtained with the use of antisera against IgG, IgA, IgM, bound kappa and bound lambda light chains are suggestive of an oligoclonal gammopathy. Follow-up serum protein electrophoretic studies and correlation with the clinical findings, however, are suggested. [facility]ONAUnQu[facility] HospitalIFE Path [id number] 12:08:14IFE Path IntThe follow-up serum protein immunofixation electrophoretic patterns obtained with the use of antisera against IgG, IgA, IgM, bound kappa and bound lambda light chains are suggestive of an oligoclonal gammopathy. Follow-up serum protein electrophoretic studies and correlation with the clinical findings, however, are suggested. [facility]2022[facility] 12:08:13 Test Item Value Reference Range Interpretation Comments EDMAR (test code = 5948) See Comment [facility]2022-04-29 12:08:13 Test Item Value Reference Range Interpretation Comments EDMAR (test code = 5948) See Comment [facility] HospitalIFE2022-04-29 12:08:13 Test Item Value Reference Range Interpretation Comments EDMAR (test code = 5948) See Comment [facility] HospitalProtein Electrophoresis Path Review 2021-08-06 12:08:12 Test Item Value Reference Range Interpretation Comments SPE Path The follow-up serum Interp (test protein ____ code = 7285) electrophoretic __BEVER pattern shows small, LY HAND Y,MD - indistinct [place] in [address]Bwe tated by: the gamma region. JOANA MARQUEZ MD - Please see concurrent [id number] ictated immunofixation Date/Time: results. 08.06.2021 7:08 AM CDT Transcribed Date/Time: 08.06.2021 7:08 AM CDTElectronical ly Signed By: BRIAN SAAVEDRA MD - 1018 4 on 08.06.2021 7:[address] HospitalProtein Electrophoresis Path Review 2021-08-06 12:08:12 Test Item Value Reference Range Interpretation Comments SPE Path The follow-up serum Interp (test protein ____ code = 7285) electrophoretic __BEVER pattern shows small, LY HAND Y,MD - [place] in [address]Sjz tated by: the gamma region. JOANA MARQUEZ MD - Please see concurrent [id number] ictated immunofixation Date/Time: results. 08.06.2021 7:08 AM CDT Transcribed Date/Time: 08.06.2021 7:08 AM CDTElectronical ly Signed By: BRIAN SAAVEDRA MD - 1018 4 on 08.06.2021 7:[address] HospitalProtein Electrophoresis Path Review 2021-08-06 12:08:12 Test Item Value Reference Range Interpretation Comments SPE Path The follow-up serum Interp (test protein ____ code = 7285) electrophoretic __BEVER pattern shows small, LY VIVEK Valdovinos MD - indistinct [place] in [address]Ysr tated by: the gamma region. JOANA MARQUEZ MD - Please see concurrent [id number] ictated immunofixation Date/Time: results. 08.06.2021 7:08 AM CDT Transcribed Date/Time: 08.06.2021 7:08 AM CDTElectronical ly Signed By: MD Gary GIMENEZ 1018 4 on 08.06.2021 7:08 AM C [facility] 2021-08-06 12:08:11 Test Item Value Reference Range Interpretation Comments TOT PROTEIN (test code 6.9 See_Comment [Aut omated message] The = 7545) system which ge nerated this result tra nsmitted reference range : 6.4 - 8.3 gm/dL. The reference range was not u sed to interpret this result as normal/abnormal . Albumin (test code = 3.8 See_Comment [Autom ated message] The 175-) system which ge nerated this result tra [...] to interpret this result as normal/abnormal . [facility]rophoresis 2021-08-06 12:08:11 Test Item [...] to interpret this result as normal/abnormal . [facility] Electrophoresis 2021-08-06 12:08:11 Test Item Value [...] to interpret this result as normal/abnormal . [facility]Free [place]/Free Lambda Ratio 2021-08-03 21:05:04 Test Item Value Reference Range Interpretation Comments FKap/FLam RT (test code = 5566) 1.29 0.26-1.[address] [facility] HospitalFree [place]/Free Lambda Ratio 2021-08-03 21:05:04 Test Item Value Reference Range Interpretation Comments FKap/FLam RT (test code = 5566) 1.29 0.26-1.[address] [facility]Free [place]/Free Lambda Ratio 2021-08-03 21:05:04 Test Item Value Reference Range Interpretation Comments FKap/FLam RT (test code = 5566) 1.29 0.26-1.[address] [facility] HospitalFree Lambda Light [id number] 21:05:03 Test Item Value Reference Range Interpretation Comments Free Lambda (test code = 5630) 46.13 mg/L 5.71-26.30 H Lab Interpretation (test code = Abnormal 89316-3) [facility] Lambda Light [id number] 21:05:03 Test Item Value Reference Range Interpretation Comments Free Lambda (test code = 5630) 46.13 mg/L 5.71-26.30 H Lab Interpretation (test code = Abnormal 15233-4) [facility] L[facility] Light [id number] 21:05:03 Test Item Value Reference Range Interpretation Comments Free Lambda (test code = 5630) 46.13 mg/L 5.71-26.30 H Lab Interpretation (test code = Abnormal 34602-1) [facility]Free [place] Light [id number] 21:05:02 Test Item Value Reference Range Interpretation Comments Free [place] (test code = 5629) 59.45 mg/L 3.30-19.40 H Lab Interpretation (test code = Abnormal 39678-5) [facility] [place] Light [id number] 21:05:02 Test Item Value Reference Range Interpretation Comments Free [place] (test code = 5629) 59.45 mg/L 3.30-19.40 H Lab Interpretation (test code = Abnormal 09479-3) [facility] [place] Light [id number] 21:05:02 Test Item Value Reference Range Interpretation Comments Free [place] (test code = 5629) 59.45 mg/L 3.30-19.40 H Lab Interpretation (test code = Abnormal 47934-0) [facility] HospitalBeta 2 [id number] 21:05:01 Test Item Value Reference Range Interpretation Comments Beta2 Microglob (test code = 5090) 3.0 mg/L 0.8-2.3 H Lab Interpretation (test code = Abnormal 11003-9) [facility] 2 [id number] 21:05:01 Test Item Value Reference Range Interpretation Comments Beta2 Microglob (test code = 5090) 3.0 mg/L 0.8-2.3 H Lab Interpretation (test code = Abnormal 40760-0) [facility] 2 [id number] 21:05:01 Test Item Value Reference Range Interpretation Comments Beta2 Microglob (test code = 5090) 3.0 mg/L 0.8-2.3 H Lab Interpretation (test code = Abnormal 61581-4) [facility]IgM2022-04-26 21:05:00 Test Item Value Reference Range Interpretation Comments IgM (test code = 6023) 13 mg/dL 35-242 L Lab Interpretation (test code = Abnormal 42453-8) [facility]2022-04-26 21:05:00 Test Item Value Reference Range Interpretation Comments IgM (test code = 6023) 13 mg/dL 35-242 L Lab Interpretation (test code = Abnormal 99152-4) [facility]IgM2022-04-26 21:05:00 Test Item Value Reference Range Interpretation Comments IgM (test code = 6023) 13 mg/dL 35-242 L Lab Interpretation (test code = Abnormal 76982-3) [facility]2022-04-26 21:04:59 Test Item Value Reference Range Interpretation Comments IgG (test code = 6001) 807 mg/dL 610-[address] [facility]IgG2022-04-26 21:04:59 Test Item Value Reference Range Interpretation Comments IgG (test code = 6001) 807 mg/dL 610-[address]Ig[facility]2022-04-26 21:04:59 Test Item Value Reference Range Interpretation Comments IgG (test code = 6001) 807 mg/dL 610-[address] [facility]IgA2022-04-26 21:04:58 Test Item Value Reference Range Interpretation Comments IgA (test code = 5992) 217 mg/dL 85-[address]Ig[facility]2022-04-26 21:04:58 Test Item Value Reference Range Interpretation Comments IgA (test code = 5992) 217 mg/dL 85-[address]IgA2022-04-26 21:04:58 Test Item Value Reference Range Interpretation Comments IgA (test code = 5992) 217 mg/dL 85-[address] [facility]24hr Urine Total [id number] 19:04:35 Test Item Value Reference Range Interpretation Comments UTP (test code = 7921) 6 mg/dL Cauti on is advised when interpreting va lues greater than 55 5 mg/dL.Results r equiring extended diluti on beyond the director college's recommendedlimi t may not dilute line brittney due to potential ma trix effect.Correlat ion with clinical contex t is recommended. UTP 24 (test code = 180 See_Comment H [Automa jenny message] 6429) The system [facility] [facility] generated this result transmitted ref erence range: <=149 mg /24hr. The reference r josette was not used to int erpret this result as normal/abnormal . Lab Interpretation Abnormal (test code = 24786-9) [facility]24[facility] Urine Total [id number] 19:04:35 Test Item Value Reference Range Interpretation Comments UTP (test code = 7921) 6 mg/dL Cauti on is advised when interpreting va lues greater than 55 5 mg/dL.Results r equiring extended diluti on beyond the director college's recommendedlimi t may not dilute line brittney due to potential ma trix effect.Correlat ion with clinical contex t is recommended. UTP 24 (test code = 180 See_Comment H [Automa jenny message] 4664) The system [facility] [employer] [facility] generated this result transmitted ref erence range: <=149 mg /24hr. The reference r josette was not used to int erpret this result as normal/abnormal . Lab Interpretation Abnormal (test code = 47215-1) [facility] Urine Total [id number] 19:04:35 Test Item Value Reference Range Interpretation Comments UTP (test code = 7921) 6 mg/dL Cauti on is advised when interpreting va lues greater than 55 5 mg/dL.Results r equiring extended diluti on beyond the director college's recommendedlimi t may not dilute line brittney due to potential ma trix effect.Correlat ion with clinical contex t is recommended. UTP 24 (test code = 180 See_Comment H [myVBOa jenny message] 6945) The system [facility] [employer] [facility] generated this result transmitted ref erence range: <=149 mg /24hr. The reference r josette was not used to int erpret this result as normal/abnormal . Lab Interpretation Abnormal (test code = 10851-2) [facility] HospitalDifferential2022-04-26 18:32:07 Test Item Value Reference Range Interpretation Comments Total Cells (test code = 113 70397-0) Neutrophil % (test code 49.0 % 42.0-66.0 The Neutrophil count = 42847-9) includes Bands. Lymphocyte % (test code 42.0 [...] al Lab Interpretation (test Abnormal code = 17128-3) [facility] NtisfiVytoijhmmdhr0759-56-97 18:32:07 Test Item Value Reference Range Interpretation Comments Total Cells (test code = 113 39233-5) Neutrophil % (test code 49.0 % 42.0-66.0 The Neutrophil count = 49429-7) includes Bands. Lymphocyte % (test code 42.0 [...] al Lab Interpretation (test Abnormal code = 16858-2) [facility]-26 18:32:07 Test Item Value Reference Range Interpretation Comments Total Cells (test code = 113 76506-1) Neutrophil % (test code 49.0 % 42.0-66.0 The Neutrophil count = 84352-3) includes Bands. Lymphocyte % (test code 42.0 [...] al Lab Interpretation (test Abnormal code = 04022-5) [facility].[id number] 18:32:04 Test Item Value Reference Range Interpretation Comments WBC (test code = 4.2 K/uL 4.0-11.0 6690-2) RBC (test code = 789-8) 3.22 See_Comment L [Au tomated message] The system [facility] [employer] [facility] generated this result transmitted ref erence range: 4.00 - 5 .50 M/uL. The refer ence range was not u sed to interpret this result as normal/abnor mal. Hgb (test code = 718-7) 11.2 See_Comment L [Au tomated message] The system [facility] [employer] [facility] generated this result transmitted ref erence range: [...] See_Comment [Automate d message] 786-4) The system [facility] [employer] [facility] generated this result transmitted ref erence range: 31.0 - 3 6.0 gm/dL. The refe rence range was not u sed to interpret this result as normal/abnor mal. RDW-SD (test code = 62.6 fL 35.1-46.3 H 06321-7) RDW-CV (test code = 17.1 % 12.0-15.5 H 788-0) Platelet count (test 196 K/uL 140-440 code = 777-3) MPV (test code = 12.9 fL 4.0-10.4 H 75663-6) INRBC (test code = 0.0 % See_Comment The INRBC (instrument 57920-9) NRBC) value ref lects the enumeration of nucleated red b lood cells contained in a 200uL sampleof whole blood analyzed by the instrument. Thi s value maydiffer from the NRBC value repo rted in a manual differential,wh ich is based on a 100 cell differential. [Automated mess age] The system [facility] generated this result transmitted ref erence range: <=0.0. T he reference range was not used to int erpret this result as normal/abnormal . Lab Interpretation Abnormal (test code = 55744-6) [facility] [place].[id number] 18:32:04 Test Item Value Reference Range Interpretation Comments WBC (test code = 4.2 K/uL 4.0-11.0 6690-2) RBC (test code = 789-8) 3.22 See_Comment L [Au tomated message] The system [facility] [employer] [facility] generated this result transmitted ref erence range: 4.00 - 5 .50 M/uL. The refer ence range was not u sed to interpret this result as normal/abnor mal. Hgb (test code = 718-7) 11.2 See_Comment L [Au tomated message] The system [facility] [employer] [facility] generated this result transmitted ref erence range: [...] See_Comment [Automate d message] 786-4) The system [facility] [employer] [facility] generated this result transmitted ref erence range: 31.0 - 3 6.0 gm/dL. The refe rence range was not u sed to interpret this result as normal/abnor mal. RDW-SD (test code = 62.6 fL 35.1-46.3 H 09332-1) RDW-CV (test code = 17.1 % 12.0-15.5 H 788-0) Platelet count (test 196 K/uL 140-440 code = 777-3) MPV (test code = 12.9 fL 4.0-10.4 H 00781-6) INRBC (test code = 0.0 % See_Comment The INRBC (instrument 73897-9) NRBC) value ref lects the enumeration of nucleated red b lood cells contained in a 200uL sampleof whole blood analyzed by the instrument. Thi s value maydiffer from the NRBC value repo rted in a manual differential,wh ich is based on a 100 cell differential. [Automated mess age] The system [facility] generated this result transmitted ref erence range: <=0.0. T he reference range was not used to int erpret this result as normal/abnormal . Lab Interpretation Abnormal (test code = 78068-4) [facility] [place].JBV3731-34-01 18:32:04 Test Item Value Reference Range Interpretation Comments WBC (test code = 4.2 K/uL 4.0-11.0 6690-2) RBC (test code = 789-8) 3.22 See_Comment L [Au tomated message] The system [facility] generated this result transmitted ref erence range: 4.00 - 5 .50 M/uL. The refer ence range was not u sed to interpret this result as normal/abnor mal. Hgb (test code = 718-7) 11.2 See_Comment L [Au tomated message] The system [facility] generated this result transmitted ref erence range: [...] See_Comment [Automate d message] 786-4) The system [facility] [facility] generated this result transmitted ref erence range: 31.0 - 3 6.0 gm/dL. The refe rence range was not u sed to interpret this result as normal/abnor mal. RDW-SD (test code = 62.6 fL 35.1-46.3 H 97323-5) RDW-CV (test code = 17.1 % 12.0-15.5 H 788-0) Platelet count (test 196 K/uL 140-440 code = 777-3) MPV (test code = 12.9 fL 4.0-10.4 H 10395-4) INRBC (test code = 0.0 % See_Comment The INRBC (instrument 74497-2) NRBC) value ref lects the enumeration of nucleated red b lood cells contained in a 200uL sampleof whole blood analyzed by the instrument. Thi s value maydiffer from the NRBC value repo rted in a manual differential,wh ich is based on a 100 cell differential. [Automated mess age] The system ic h generated this result transmitted ref erence range: <=0.0. T he reference range was not used to int erpret this result as normal/abnormal . Lab Interpretation Abnormal (test code = 38431-6) [facility] [id number] 17:58:21 Test Item Value Reference Range Interpretation [...] 8547) Lab Interpretation Abnormal (test code = 35920-7) [facility] [id number] 17:58:21 Test Item Value Reference Range Interpretation [...] 8547) Lab Interpretation Abnormal (test code = 92486-2) [facility] [id number] 17:58:21 Test Item Value Reference Range Interpretation [...] 7382) End Date (test code = 08/03/2021 52127-9) U24 Comment (test code 0735a-0735a = 8547) Lab Interpretation Abnormal (test code = 49636-5) [facility] Hospital[facility] [id number] 16:20:28 Test Item Value Reference Range Interpretation Comments Sodium Lvl (test code = 137 See_Comment [Au tomated message] 2951-2) The system [employer] generated this result transmitted ref erence range: 136 - 14 5 mEq/L. The refe rence range was not u sed to interpret this result as normal/abnor mal. Potassium Lvl (test code 3.5 See_Comment [A utomated message] = 2823-3) The system [employer] generated this result transmitted ref erence range: 3.5 - 5. 1 mEq/L. The refe rence range was not u sed to interpret this result as normal/abnor mal. Chloride (test code = 97 See_Comment L [Auto mated message] ) The system [employer] generated this result transmitted ref erence range: 98 - 107 mEq/L. The refe rence range was not u sed to interpret this result as normal/abnor mal. CO2 (test code = 2027-12) 31 See_Comment H [A utomated message] The system [employer] generated this result transmitted ref erence range: 22 - 29 mEq/L. The reference r josette was not used to interpret this result as normal/abnor mal. Anion Gap (test code = 9 See_Comment [Aut omated message] 97554-4) The system [employer] generated this result transmitted ref erence range: 4 - 14 m Eq/L. The reference r josette was not used to interpret this result as normal/abnor mal. Lab Interpretation (test Abnormal code = 72349-8) [facility] Hospital[facility] [id number] 16:20:28 Test Item Value Reference Range Interpretation Comments Sodium Lvl (test code = 137 See_Comment [Au tomated message] 2951-2) The system [employer] generated this result transmitted ref erence range: 136 - 14 5 mEq/L. The refe rence range was not u sed to interpret this result as normal/abnor mal. Potassium Lvl (test code 3.5 See_Comment [A utomated message] = 2823-3) The system [employer] generated this result transmitted ref erence range: 3.5 - 5. 1 mEq/L. The refe rence range was not u sed to interpret this result as normal/abnor mal. Chloride (test code = 97 See_Comment L [Auto mated message] ) The system [employer] generated this result transmitted ref erence range: 98 - 107 mEq/L. The refe rence range was not u sed to interpret this result as normal/abnor mal. CO2 (test code = 2027-12) 31 See_Comment H [A utomated message] The system [employer] generated this result transmitted ref erence range: 22 - 29 mEq/L. The reference r josette was not used to interpret this result as normal/abnor mal. Anion Gap (test code = 9 See_Comment [Aut omated message] 09111-4) The system [employer] generated this result transmitted ref erence range: 4 - 14 m Eq/L. The reference r josette was not used to interpret this result as normal/abnor mal. Lab Interpretation (test Abnormal code = 91533-7) [facility] [place] [id number] 16:20:28 Test Item Value Reference Range Interpretation Comments Sodium Lvl (test code = 137 See_Comment [Au tomated message] 8771-2) The system [employer] generated this result transmitted ref erence range: 136 - 14 5 mEq/L. The refe rence range was not u sed to interpret this result as normal/abnor mal. Potassium Lvl (test code 3.5 See_Comment [A utomated message] = 2823-3) The system [employer] generated this result transmitted ref erence range: 3.5 - 5. 1 mEq/L. The refe rence range was not u sed to interpret this result as normal/abnor mal. Chloride (test code = 97 See_Comment L [Auto mated message] ) The system [employer] generated this result transmitted ref erence range: 98 - 107 mEq/L. The refe rence range was not u sed to interpret this result as normal/abnor mal. CO2 (test code = 2027-) 31 See_Comment H [A utomated message] The system [employer] generated this result transmitted ref erence range: 22 - 29 mEq/L. The reference r josette was not used to interpret this result as normal/abnor mal. Anion Gap (test code = 9 See_Comment [Aut omated message] 99721-2) The system [employer] generated this result transmitted ref erence range: 4 - 14 m Eq/L. The reference r josette was not used to interpret this result as normal/abnor mal. Lab Interpretation (test Abnormal code = 48145-4) [facility] HospitalFractionated [id number] 16:20:27 Test Item Value Reference Range Interpretation [...] above 28 g/L. [Automated message] The system [employer] generated this result transmitted ref erence range: [...] (test 0.4 mg/dL 0.0-0.9 code = 1970-04) [facility] HospitalFractionated [id number] 16:20:27 Test Item Value Reference Range Interpretation [...] above 28 g/L. [Automated message] The system [employer] generated this result transmitted ref erence range: [...] (test 0.4 mg/dL 0.0-0.9 code = 1970-04) [facility] HospitalFractionated [id number] 16:20:27 Test Item Value Reference Range Interpretation [...] above 28 g/L. [Automated message] The system [employer] generated this result transmitted ref erence range: [...] (test 0.4 mg/dL 0.0-0.9 code = 1970-04) [facility] HospitalUric [id number] 16:20:26 Test Item Value Reference Range Interpretation Comments Uric Acid (test code = 3084-1) 4.1 mg/dL 2.4-5.[address] HospitalUric [id number] 16:20:26 Test Item Value Reference Range Interpretation Comments Uric Acid (test code = 3084-1) 4.1 mg/dL 2.4-5.[address] HospitalUric [id number] 16:20:26 Test Item Value Reference Range Interpretation Comments Uric Acid (test code = 3084-1) 4.1 mg/dL 2.4-5.[address]Total [id number] 16:20:25 Test Item Value Reference Range Interpretation Comments Total Protein (test code = 2885-2) 6.9 g/dL 6.4-8.[address] [facility] [id number] 16:20:25 Test Item Value Reference Range Interpretation Comments Total Protein (test code = 2885-2) 6.9 g/dL 6.4-8.[address] [facility] [id number] 16:20:25 Test Item Value Reference Range Interpretation Comments Total Protein (test code = 2885-2) 6.9 g/dL 6.4-8.[address] HospitalPhosphorus [id number] 16:20:24 Test Item Value Reference Range Interpretation Comments Phosphorus (test code = 2777-1) 3.3 mg/dL 2.5-4.[address] [facility] HospitalPhosphorus [id number] 16:20:24 Test Item Value Reference Range Interpretation Comments Phosphorus (test code = 2777-1) 3.3 mg/dL 2.5-4.[address] HospitalPhosphorus [id number] 16:20:24 Test Item Value Reference Range Interpretation Comments Phosphorus (test code = 2777-1) 3.3 mg/dL 2.5-4.[address] HospitalCalcium [id number] 16:20:23 Test Item Value Reference Range Interpretation Comments Calcium Lvl (test code = 53988-4) 10.1 mg/dL 8.4-10.[address] HospitalCalcium Aygwk3789-95-26 16:20:23 Test Item Value Reference Range Interpretation Comments Calcium Lvl (test code = 06447-5) 10.1 mg/dL 8.4-10.[address] [facility] HospitalCal[facility] [id number] 16:20:23 Test Item Value Reference Range Interpretation Comments Calcium Lvl (test code = 40886-6) 10.1 mg/dL 8.4-10.[address] HospitalALT2022-04-26 16:20:22 Test Item Value Reference Range Interpretation Comments ALT (test code = 14 U/L See_Comment [Automated message] The 1741-09) system which ge nerated this result transmit jenny reference range : <=33. The reference range was not used to interpr et this result as lani l/abnormal. [facility] 16:20:22 Test Item Value Reference Range Interpretation Comments ALT (test code = 14 U/L See_Comment [Automated message] The 1741-09) system which ge nerated this result transmit jenny reference range : <=33. The reference range was not used to interpr et this result as lani l/abnormal. [facility] 16:20:22 Test Item Value Reference Range Interpretation Comments ALT (test code = 14 U/L See_Comment [Automated message] The 1741-09) system which ge nerated this result transmit jenny reference range : <=33. The reference range was not used to interpr et this result as lani l/abnormal. [facility] HospitalBUN2022-04-26 16:20:21 Test Item Value Reference Range Interpretation Comments BUN (test code = 3094-0) 21 mg/dL 09-[address] [facility] HospitalBUN2022-04-26 16:20:21 Test Item Value Reference Range Interpretation Comments BUN (test code = 3094-0) 21 mg/dL 09-[address] [facility] HospitalBUN2022-04-26 16:20:21 Test Item Value Reference Range Interpretation Comments BUN (test code = 3094-0) 21 mg/dL 09-[address] [facility] HospitalGlucose [id number] 16:20:20 Test Item Value Reference Range Interpretation [...] diabetes Lab Interpretation (test Abnormal code = 40565-5) [facility] HospitalGlucose [id number] 16:20:20 Test Item Value Reference Range Interpretation [...] diabetes Lab Interpretation (test Abnormal code = 58382-0) [facility] HospitalGlucose [id number] 16:20:20 Test Item Value Reference Range Interpretation [...] diabetes Lab Interpretation (test Abnormal code = 79800-9) [facility] HospitalGlomerular Filtration Rate 2021-08-03 16:20:18 Test Item Value Reference Range Interpretation Comments eGFR-AA (test code = 56 See_Comment L Normal eGFR: >= 60 00598-3) mL/min/1.73 m2N ote: The eGFR is kena [...] failure <15 [Automated mess age] The system [employer] generated this result transmitted ref erence range: >=60 mL/min/1.73 sq. m. The reference range was not used to int erpret this result as normal/abnormal . eGFR-YASMIN (test code = 49 See_Comment L Normal eGFR: >= 60 69511-2) mL/min/1.73 m2N ote: The eGFR is kena [...] failure <15 [Automated mess age] The system [employer] generated this result transmitted ref erence range: >=60 mL/min/1.73 sq. m. The reference range was not used to int erpret this result as normal/abnormal . Lab Interpretation Abnormal (test code = 14966-4) [facility] HospitalGlomerular Filtration Rate 2021-08-03 16:20:18 Test Item Value Reference Range Interpretation Comments eGFR-AA (test code = 56 See_Comment L Normal eGFR: >= 60 63683-0) mL/min/1.73 m2N ote: The eGFR is kena [...] failure <15 [Automated mess age] The system [employer] generated this result transmitted ref erence range: >=60 mL/min/1.73 sq. m. The reference range was not used to int erpret this result as normal/abnormal . eGFR-YASMIN (test code = 49 See_Comment L Normal eGFR: >= 60 20449-2) mL/min/1.73 m2N ote: The eGFR is kena [...] erately to severely dec reased GFR 30-444 Sev erely decreased GFR 1 5-295 Kidney failure <15 [Automated mess age] The system [employer] generated this result transmitted ref erence range: >=60 mL/min/1.73 sq. m. The reference range was not used to int erpret this result as normal/abnormal . Lab Interpretation Abnormal (test code = 74272-6) [facility] [place]Gl[facility] Fil[facility] Rate 2021-08-03 16:20:18 Test Item Value Reference Range Interpretation Comments eGFR-AA (test code = 56 See_Comment L Normal eGFR: >= 60 16505-6) mL/min/1.73 m2N ote: The eGFR is kena [...] failure <15 [Automated mess age] The system [employer] generated this result transmitted ref erence range: >=60 mL/min/1.73 sq. m. The reference range was not used to int erpret this result as normal/abnormal . eGFR-YASMIN (test code = 49 See_Comment L Normal eGFR: >= 60 96792-6) mL/min/1.73 m2N ote: The eGFR is kena [...] failure <15 [Automated mess age] The system [employer] generated this result transmitted ref erence range: >=60 mL/min/1.73 sq. m. The reference range was not used to int erpret this result as normal/abnormal . Lab Interpretation Abnormal (test code = 18126-3) [facility] HospitalMagnesium [id number] 16:20:17 Test Item Value Reference Range Interpretation Comments Magnesium (test code = 58855-3) 1.7 mg/dL 1.6-2.[address] HospitalMagnesium [id number] 16:20:17 Test Item Value Reference Range Interpretation Comments Magnesium (test code = 80314-7) 1.7 mg/dL 1.6-2.[address] HospitalMagnesium [id number] 16:20:17 Test Item Value Reference Range Interpretation Comments Magnesium (test code = 24136-1) 1.7 mg/dL 1.6-2.[address] HospitalLDH2022-04-26 16:20:16 Test Item Value Reference Range Interpretation Comments LDH (test code = 128 U/L 135-214 L Results gre ater than 49366-2) 1651 U/L may no t be reliable due to matrix effect w ith extended diluti on as it exceeds the director [employer]'s recommended diallo it. Caution should be exercised when interpreting diaz ch values and done in conjunction wit clinical contex t. Lab Interpretation (test Abnormal code = 85018-0) [facility] HospitalLDH[facility] 16:20:16 Test Item Value Reference Range Interpretation Comments LDH (test code = 128 U/L 135-214 L Results gre ater than 14101-3) 1651 U/L may no t be reliable due to matrix effect w ith extended diluti on as it exceeds the [employer]'s recommended diallo it. Caution should be exercised when interpreting diaz ch values and done in conjunction wit clinical contex t. Lab Interpretation (test Abnormal code = 91364-1) [facility] HospitalLDH[facility] 16:20:16 Test Item Value Reference Range Interpretation Comments LDH (test code = 128 U/L 135-214 L Results gre ater than 36813-8) 1651 U/L may no t be reliable due to matrix effect w ith extended diluti on as it exceeds the [employer]'s recommended diallo it. Caution should be exercised when interpreting diaz ch values and done in conjunction wit h clinical contex t. Lab Interpretation (test Abnormal code = 47484-5) [facility] HospitalAlkaline [id number] 16:20:15 Test Item Value Reference Range Interpretation Comments Alk Phos (test code = 6768-6) 73 U/L 35-[address] HospitalAlkaline [id number] 16:20:15 Test Item Value Reference Range Interpretation Comments Alk Phos (test code = 6768-6) 73 U/L 35-[address] [facility] HospitalAlkaline Xlxrwoseupz9062-09-46 16:20:15 Test Item Value Reference Range Interpretation Comments Alk Phos (test code = 6768-6) 73 U/L 35-[address] HospitalAlbumin [id number] 16:20:14 Test Item Value Reference Range Interpretation Comments Albumin Lvl (test code 4.3 See_Comment [Aut omated message] The = 4647) system which ge nerated this result tra nsmitted reference range : 3.5 - 5.2 gm/dL. The refe rence range was not used to interpret this result as normal/abnormal . [facility] HospitalAlbumin [id number] 16:20:14 Test Item Value Reference Range Interpretation Comments Albumin Lvl (test code 4.3 See_Comment [Aut omated message] The = 0160) system which ge nerated this result tra nsmitted reference range : 3.5 - 5.2 gm/dL. The refe rence range was not used to interpret this result as normal/abnormal . [facility] HospitalAlbumin [id number] 16:20:14 Test Item Value Reference Range Interpretation Comments Albumin Lvl (test code 4.3 See_Comment [Aut omated message] The = 6175) system which ge nerated this result tra nsmitted reference range : 3.5 - 5.2 gm/dL. The refe rence range was not used to interpret this result as normal/abnormal . [facility] HospitalAspartate Aminotransferase 2021-08-03 16:20:13 Test Item Value Reference Range Interpretation Comments AST (test code = 15 U/L See_Comment [Automated message] The 1919-11) system which ge nerated this result transmit jenny reference range : <=32. The reference range was not used to interpr et this result as lani l/abnormal. [facility] HospitalAspartate Aminotransferase 2021-08-03 16:20:13 Test Item Value Reference Range Interpretation Comments AST (test code = 15 U/L See_Comment [Automated message] The 1919-11) system which ge nerated this result transmit jenny reference range : <=32. The reference range was not used to interpr et this result as lani l/abnormal. [facility] HospitalAspartate Aminotransferase 2021-08-03 16:20:13 Test Item Value Reference Range Interpretation Comments AST (test code = 15 U/L See_Comment [Automated message] The 1919-11) system which ge nerated this result transmit jenny reference range : <=32. The reference range was not used to interpr et this result as lani l/abnormal. [facility].Serum Elbwsbkxsn9602-63-11 16:20:11 Test Item Value Reference Range Interpretation Comments Creatinine (test code = 2160-0) 1.13 mg/dL 0.51-0.95 H Lab Interpretation (test code = Abnormal 68621-9) [facility].Serum Xzzaynkfts9840-13-74 16:20:11 Test Item Value Reference Range Interpretation Comments Creatinine (test code = 2160-0) 1.13 mg/dL 0.51-0.95 H Lab Interpretation (test code = Abnormal 02155-3) [facility].Serum Szrrfsmowg5055-50-10 16:20:11 Test Item Value Reference Range Interpretation Comments Creatinine (test code = 2160-0) 1.13 mg/dL 0.51-0.95 H Lab Interpretation (test code = Abnormal 60711-1) [facility] HospitalUrine Prot Electrophoresis Path [id number] 19:21:10U ProE Path IntThe follow-up urine protein electrophoretic pattern shows no definitive evidence of aBence-Liang protein peak.If a Bence-Liang proteinuria is suspected clinically, serum free light chain and urine immunofixation studies are recommended. [facility]ONAUnQuail Creek Surgical HospitalUrine Prot Electrophoresis Path [id number] 19:21:10U ProE Path IntThe follow-up urine protein electrophoretic pattern shows no definitive evidence of aBence-Liang protein peak.If a Bence-Liang proteinuria is suspected clinically, serum free light chain and urine immunofixation studies are recommended. [facility] ARI[facility]ONAUnQuail Creek Surgical HospitalUrine Prot Electrophoresis Path [id number] 19:21:10U ProE Path IntThe follow-up urine protein electrophoretic pattern shows no definitive evidence of aBence-Liang protein peak.If a Bence-Liang proteinuria is suspected clinically, serum free light chain and urine immunofixation studies are recommended. [facility] ARIZONAUnQuail Creek Surgical HospitalUrine EDMAR Path Review 2021-02-05 19:21:09 Test Item Value Reference Range Interpretation Comments UIFE Path The follow-up urine Int (test protein code = immunofixation MARIE CORTEZ MD, 7917) electrophoretic PhD [id number] tated by: patterns obtained MARIE Huntley MD, PhD [place] [id number] d antisera against IgG, Date/T barb: 02.05.2021 IgA, IgM, bound and 14:21 PM CDT free [place] and Lambda Transc ribed Date/Time: light chain proteins 021 14:21 PM show no definitive CDTElectr onically evidence of a Signed By: [place] [id number] on band. 02.05.2021 14:2 1 PM [facility] EDMAR Path [id number] 19:21:09 Test Item Value Reference Range Interpretation Comments UIFE Path The follow-up urine Int (test protein code = immunofixation MARIE CORTEZ MD, 7917) electrophoretic PhD [id number] tated by: patterns obtained MARIE Huntley MD, PhD [place] use of [id number] d antisera against IgG, Date/T barb: 02.05.2021 IgA, IgM, bound and 14:21 PM CDT free [place] and Lambda Transc ribed Date/Time: light chain proteins 021 14:21 PM show no definitive CDTElectr onically evidence of a Signed By: [place] [address] on band. 02.05.2021 14:2 1 PM [facility] EDMAR Path [id number] 19:21:09 Test Item Value Reference Range Interpretation Comments UIFE Path The follow-up urine Int (test protein code = immunofixation MARIE CORTEZ MD, 7917) electrophoretic PhD [id number] tated by: patterns obtained MARIE Huntley MD, PhD with the use of [address]994Tkphyfe d antisera against IgG, Date/T barb: 02.05.2021 IgA, IgM, bound and 14:21 PM CDT free [place] and Lambda Transc ribed Date/Time: light chain proteins 021 14:21 PM show no definitive CDTElectr onically evidence of a Signed By: BRENNA Savage protein MD [place] , [place] [address] on band. 02.05.2021 14:[address] [facility] Path [id number] 20:33:58 EDMAR Path IntThe follow-up serum protein immunofixation electrophoretic patterns obtained with the use of antisera against IgG, IgA, IgM, bound [place] and bound Lambda light chain proteins currently suggest the presence of an indistinct IgG kappa band in the gamma region but which has a much more anodicmigration compared to the patient's original M-protein.The significance of such a finding is uncertain at this time. Clinical correlation and close follow-up studies are recommended. [facility]ONAUnQuail Creek Surgical HospitalIFE Path [id number] 20:33:58IFE Path IntThe follow-up serum protein immunofixation electrophoretic patterns obtained with the use of antisera against IgG, IgA, IgM, bound [place] and bound Lambda light chain proteins currently suggest the presence of an indistinct IgG kappa band in the gamma region but which has a much more anodicmigration compared to the patient's original M-protein.The significance of such a finding is uncertain at this time. Clinical correlation and close follow-up studies are recommended. [facility]ONAUnQuail Creek Surgical HospitalIFE Path Review 2021-02-04 20:33:58IFE Path IntThe follow-up serum protein immunofixation electrophoretic patterns obtained with the use of antisera against IgG, IgA, IgM, bound [place] and bound Lambda light chain proteins currently suggest the presence of an indistinct IgG kappa band in the gamma region but which has a much more anodicmigration compared to the patient's original M-protein.The significance of such a finding is uncertain at this time. Clinical correlation and close follow-up studies are recommended. [facility] BrookProtein Electrophoresis Path Review 2021-02-04 20:33:56SPE Path InterpThe follow-up serum protein electrophoretic pattern shows irregularities of the curvein the gamma region. If a paraproteinemia is suspected clinically, serum free light chain studies, serum protein EDMAR studies, serum immunoglobulin quantitation and urine Bence-Liang protein studies arerecommended. [facility]ONAUnQu[facility] HospitalProtein Electrophoresis Path [id number] 20:33:56 SPE Path InterpThe follow-up serum protein electrophoretic pattern shows irregularities of the curvein the gamma region. If a paraproteinemia is suspected clinically, serum free light chain studies, serum protein EDMAR studies, serum immunoglobulin quantitation and urine Bence-Liang protein studies are recommended. [facility]ONAUnQuail [facility] Surgical HospitalProtein Electrophoresis Path [id number] 20:33:56SPE Path InterpThe follow-up serum protein electrophoretic pattern shows irregularities of the curvein the gamma region. If a paraproteinemia is suspected clinically, serum free light chain studies, serum protein EDMAR studies, serum immunoglobulin quantitation and urine Bence-Liang protein studies arerecommended. 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
--- NOTE | 2022-09-10 12:57 | RAD REPORT ---
EXAM DESCRIPTION: RAD - Chest Single View - 09/10/2022 12:45 pm CLINICAL HISTORY: FEVER COMPARISON: Chest Pa And Lat (2 Views) dated 05/13/2022; Chest Single View dated 04/22/2022; Chest Sing le View dated 04/20/2022; Chest Single View dated 09/02/2020 FINDINGS: Lines: None. Lungs: No evidence of edema or pneumonia. Pleural: No significant pleural effusions or pneumothorax. Cardiac: The heart size is within normal limits. Mediastinum: Within normal limits. Bones: No acute fractures. Other: None IMPRESSION: No acute cardiopulmonary disease.
[2022-09-10 13:28] LABS: Absolute Lymphocytes (CBC) 0.6 K/uL (0.7-4.9); Hematocrit 30.3 % (36.0-45.0); Lymphocytes % 12.4 % (15.3-44.8); MCV 104.3 fL (80-100); MPV 11.1 fL (7.6-11.3)
[2022-09-10 13:38] LABS: Protime INR 1.29
[2022-09-10] MEDS ORDERED: NA CHLORIDE 0.9% 2,000 ML ONE (13:42)
[2022-09-10 13:47] LABS: Bilirubin Total 0.6 mg/dL (0.2-1.0); Protein, Total 6.6 g/dL (6.4-8.2)
[2022-09-10 13:52] LABS: Potassium 2.5 mEq/L (3.5-5.1)
[2022-09-10 14:04] LABS: Specific Gravity 1.015 (1.005-1.030); Urine Bacteria >50 /HPF (<20); Urine Bilirubin NEGATIVE (Negative); Urine Blood 1+ (Negative); Urine Clarity Turbid (Clear); Urine Color Yellow (Yellow); Urine Glucose NEGATIVE (Negative); Urine Mucus Slight /HPF (None Seen); Urine Protein 1+ (Negative); Urine Urobilinogen Normal (Normal); Urine WBC Clump Few /HPF (None Seen)
--- NOTE | 2022-09-10 14:44 | ER ---
Nurse's Notes [facility] Name: Lindsey Peter Age: 72 yrs Sex: Female : 1950 Arrival Date: 09/10/2022 Time: 11:56 Bed 13 Private MD: Diagnosis: UTI/ Urinary tract infection, site not specified;Hypokalemia;Severe sepsis without septic shock Presentation: 09/10 12:17 Chief complaint: Patient states: Reports UTI symptoms since last Monday. [place] worse ll1 since . Nausea, weak, fatigue. 103 fever last night. Coronavirus screen: Client denies travel out of the [place] in the last 14 days. Ebola Screen: Patient denies travel to an Ebola-affected area in the 21 days before illness onset. Initial Sepsis Screen: Does the patient meet any 2 criteria? No. Patient's initial sepsis screen is negative. Does the patient have a suspected source of infection? Yes: Dysuria/Frequency/Urgency/UTI. Risk Assessment: Do you want to hurt yourself or someone else? Patient reports no desire to harm self or others. Onset of symptoms was September 04, 2022. 12:17 Method Of Arrival: Ambulatory ll1 12:17 Acuity: IVANA 3 ll1 Historical: - Allergies: 12:18 No Known Drug Allergies; ll1 - PMHx: 12:18 High Cholesterol; Hypertension; CVA; meningitis; Myocardial infarction; multiple ll1 myeloma; - Immunization history:: Adult Immunizations up to date. - Social history:: Smoking status: Patient denies any tobacco usage or history of. Screenin:31 [facility] ED Fall Risk Assessment (Adult) History of falling in the last 3 months, kr3 including since admission No falls in past 3 months (0 pts). Abuse screen: Denies threats or abuse. Nutritional screening: No deficits noted. Tuberculosis screening: No symptoms or risk factors identified. Assessment: 12:20 General: Appears in no apparent distress. comfortable, Behavior is calm, cooperative, kr3 appropriate for age. Pain: Denies pain. Neuro: Level of Consciousness is awake, alert, obeys commands, Oriented to person, place, time, situation. Cardiovascular: Patient's skin is warm and dry. Respiratory: Airway is patent Respiratory effort is even, unlabored, Respiratory pattern is regular, symmetrical. GI: Abdomen is non-distended. : Reports burning with urination. EENT: No signs and/or symptoms were reported regarding the EENT system. Derm: No signs and/or symptoms reported regarding the dermatologic system. Musculoskeletal: No signs and/or symptoms reported regarding the musculoskeletal system. 13:30 Reassessment: Patient appears in no apparent distress at this time. Patient is alert, kr3 oriented x 3, equal unlabored respirations, skin warm/dry/pink. 14:30 Reassessment: Patient appears in no apparent distress at this time. Patient is alert, kr3 oriented x 3, equal unlabored respirations, skin warm/dry/pink. 15:30 Reassessment: Patient appears in no apparent distress at this time. Patient is alert, kr3 oriented x 3, equal unlabored respirations, skin warm/dry/pink. 16:30 Reassessment: Patient appears in no apparent distress at this time. Patient is alert, kr3 oriented x 3, equal unlabored respirations, skin warm/dry/pink. 17:26 Reassessment: Patient appears in no apparent distress at this time. Patient is alert, kr3 oriented x 3, equal unlabored respirations, skin warm/dry/pink. Vital Signs: 12:17 BP 131 / 55; Pulse 71; Resp 16; Temp 98.3; Pulse Ox 98% ; ll1 13:23 Weight 60.33 kg; kr3 14:30 BP 122 / 60; Pulse 53; Resp 18; Pulse Ox 100% on R/A; kr3 15:30 BP 119 / 57; Pulse 55; Resp 18; Pulse Ox 100% on R/A; kr3 16:30 BP 142 / 55; Pulse 60; Resp 18; Pulse Ox 100% on R/A; kr3 17:30 BP 135 / 51; Pulse 66; Resp 18; Pulse Ox 100% on R/A; kr3 18:30 BP 149 / 58; Pulse 71; Resp 18; Pulse Ox 97% on R/A; kr3 20:08 Temp 103.1(O); kr3 20:15 BP 129 / 65; Pulse 74; Resp 18; Pulse Ox 96% on R/A; kr3 ED Course: 12:00 Patient arrived in ED. mr 12:09 Daya Huber FNP is [facility] 7 12:09 Binu Bermudez MD is Attending Physician. jh7 12:18 Triage completed. ll1 12:19 Arm band placed on Patient placed in an exam room, on a stretcher. ll1 12:20 Susie Stanley RN is Primary Nurse. kr3 12:20 Call light in reach. Side rails up X 1. kr3 12:47 Chest Single View XRAY In Process Unspecified. EDMS 12:58 Inserted saline lock: 20 gauge in right forearm, using aseptic technique. kr3 13:23 Blood Culture Adult (2) Sent. kr3 14:42 Bigg Becerra MD is Hospitalizing Provider. jh7 19:31 No provider procedures requiring assistance completed. kr3 20:29 Patient admitted, IV remains in place. kr3 Administered Medications: 13:52 Drug: NS 0.9% IV (30 ml/kg) 30 ml/kg Route: IV; Rate: bolus; Site: right antecubital; kr3 15:49 Drug: Potassium PO Effervescent Tablet 50 mEq Route: PO; kr3 19:36 Follow up: Response: No adverse reaction kr3 15:49 Drug: Potassium Chloride IV 10 mEq Route: IV; Rate: 1 calculated rate; Site: right kr3 forearm; 19:36 Follow up: Response: No adverse reaction; IV Status: Completed infusion; IV Intake: [id number] 15:49 Drug: Rocephin IV 1 grams Route: IV; Rate: 1 calculated rate; Site: right forearm; kr3 19:36 Follow up: Response: No adverse reaction; IV Status: Completed infusion; IV Intake: [id number] 15:50 Drug: NS 0.9% IV (30 ml/kg) 30 ml/kg Route: IV; Rate: bolus; Site: right forearm; kr3 19:36 Follow up: Response: No adverse reaction; IV Intake: 1850ml kr3 20:19 Drug: Acetaminophen PO 650 mg Route: PO; kr3 20:29 Follow up: Response: No adverse reaction kr3 Medication: 19:32 VIS not applicable for this client. kr3 Intake: 19:36 IV: 10ml; Total: 10ml. kr3 19:36 IV: 50ml; Total: 60ml. kr3 19:36 IV: 1850ml; Total: 1910ml. kr3 Outcome: 14:43 Decision to Hospitalize by Provider. jh7 20:26 Admitted to Med/surg accompanied by nurse, via wheelchair, room 208. kr3 20:28 Condition: stable kr3 20:28 Instructed on the need for admit. 20:29 Patient left the ED. [email or web address] Signatures: Dispatcher [employer] SYLVESTER CiscoAnitha mr Sylwia Kee, RN RN ll1 Daya Huber, OFFICE SUPPORT ASSOCIATE OFFICE SUPPORT ASSOCIATE jh7 Susie Stanley RN RN kr3
--- NOTE | 2022-09-10 14:44 | EDPHYS ---
Physician Documentation [facility] Name: Lindsey Peter Age: 72 yrs Sex: Female : 1950 Arrival Date: 09/10/2022 Time: 11:56 Bed 13 Private MD: ED Physician Binu Bermudez HPI: 09/10 12:10 This 72 yrs old Female presents to ER via Ambulatory with complaints of jh7 Urinary Problem, Blood Pressure Problem, Fever, Nausea. 12:10 Onset: The symptoms/episode began/occurred 6 day(s) ago. Associated signs and symptoms: jh7 Pertinent positives: fever, Urinary symptoms, Pertinent negatives: abdominal pain, chest pain, shortness of breath, vomiting. 72-year-old female reports UTI symptoms since Monday. Reports that yesterday she had a fever of 103 and woke up this morning feeling weak and nauseated. Reports that she went to the [facility] who sent her to the ER based on her blood pressure being 80/40. She has a history of multiple myeloma that is in remission. Reports that her doctor from [facility] advised ER eval.. Historical: - Allergies: 12:18 No Known Drug Allergies; ll1 - PMHx: 12:18 High Cholesterol; Hypertension; CVA; meningitis; Myocardial infarction; multiple ll1 myeloma; - Immunization history:: Adult Immunizations up to date. - Social history:: Smoking status: Patient denies any tobacco usage or history of. ROS: 12:10 Neck: Negative for injury, pain, and swelling, Cardiovascular: Negative for chest pain, jh7 palpitations, and edema, Respiratory: Negative for shortness of breath, cough, wheezing, and pleuritic chest pain, Abdomen/GI: Negative for abdominal pain, nausea, vomiting, diarrhea, and constipation, Back: Negative for injury and pain, MS/Extremity: Negative for injury and deformity, Skin: Negative for injury, rash, and discoloration, Neuro: Negative for headache, weakness, numbness, tingling, and seizure. 12:10 Constitutional: Positive for fatigue, fever, malaise. 12:10 : Positive for urinary symptoms, burning with urination, Negative for flank pain. 12:10 All other systems are negative. Exam: 12:10 Head/Face: Normocephalic, atraumatic. Neck: Trachea midline, no thyromegaly or masses jh7 palpated, and no cervical lymphadenopathy. Supple, full range of motion without nuchal rigidity, or vertebral point tenderness. No Meningismus. Cardiovascular: Regular rate and rhythm with a normal S1 and S2. No gallops, murmurs, or rubs. Normal PMI, no JVD. No pulse deficits. Respiratory: Lungs have equal breath sounds bilaterally, clear to auscultation and percussion. No rales, rhonchi or wheezes noted. No increased work of breathing, no retractions or nasal flaring. Abdomen/GI: Soft, non-tender, with normal bowel sounds. No distension or tympany. No guarding or rebound. No evidence of tenderness throughout. Back: No spinal tenderness. No costovertebral tenderness. Full range of motion. Skin: Warm, dry with normal turgor. Normal color with no rashes, no lesions, and no evidence of cellulitis. MS/ Extremity: Pulses equal, no cyanosis. Neurovascular intact. Full, normal range of motion. Neuro: Awake and alert, GCS 15, oriented to person, place, time, and situation. Motor strength 5/5 in all extremities. Sensory grossly intact. Normal gait. 12:10 Constitutional: The patient appears alert, awake, uncomfortable. Vital Signs: 12:17 BP 131 / 55; Pulse 71; Resp 16; Temp 98.3; Pulse Ox 98% ; ll1 13:23 Weight 60.33 kg; kr3 14:30 BP 122 / 60; Pulse 53; Resp 18; Pulse Ox 100% on R/A; kr3 15:30 BP 119 / 57; Pulse 55; Resp 18; Pulse Ox 100% on R/A; kr3 16:30 BP 142 / 55; Pulse 60; Resp 18; Pulse Ox 100% on R/A; kr3 17:30 BP 135 / 51; Pulse 66; Resp 18; Pulse Ox 100% on R/A; kr3 18:30 BP 149 / 58; Pulse 71; Resp 18; Pulse Ox 97% on R/A; kr3 20:08 Temp 103.1(O); kr3 20:15 BP 129 / 65; Pulse 74; Resp 18; Pulse Ox 96% on R/A; kr3 MDM: 12:09 Patient medically screened. [facility] 14:10 Differential diagnosis: UTI, Pyelonephritis, sepsis. Data reviewed: vital signs, nurses [facility] notes, lab test result(s), EKG, radiologic studies, plain films. Consideration of Admission/Observation Patient was admitted/placed on observation. Management of patient was discussed with the following: Hospitalist: Dr. Hollingsworth. I considered the following discharge prescriptions or medication management in the emergency department Medications were administered in the Emergency Department. See MAR. Independent interpretation of the following test(s) in the Emergency Department X-Ray: My interpretation is no acute findings. Historians other than the Patient: Spouse/Significant Other: . Care significantly affected by the following chronic conditions: Hypertension, Cancer. Counseling: I had a detailed discussion with the patient and/or guardian regarding: the historical points, exam findings, and any diagnostic results supporting the discharge/admit diagnosis, the need for further work-up and treatment in the hospital. Response to treatment: the patient's symptoms have mildly improved after treatment. 09/10 12:17 Order name: Blood Culture Adult (2) [facility] 09/10 12:17 Order name: CBC with Diff; Complete Time: 13:52 [facility] 09/10 12:17 Order name: CMP; Complete Time: 14:05 [facility] 09/10 12:17 Order name: Lactate w/ 2H reflex if indic.; Complete Time: 13:52 [facility] 09/10 12:17 Order name: Protime (+inr); Complete Time: 13:52 [facility] 09/10 12:17 Order name: Ptt, Activated; Complete Time: 13:52 [facility] 09/10 12:17 Order name: Urinalysis w/ reflexes; Complete Time: 14:05 [facility] 09/10 14:07 Order name: Urine Culture [facility] 09/10 16:50 Order name: Lactate Sepsis 2 HR Follow-up [facility] 09/10 12:17 Order name: Chest Single View XRAY; Complete Time: 12:58 [facility] 09/10 12:17 Order name: EKG; Complete Time: 12:18 [facility] 09/10 12:17 Order name: Accucheck; Complete Time: 13:52 [facility] 09/10 12:17 Order name: Cardiac monitoring; Complete Time: 13:52 [facility] 09/10 12:17 Order name: EKG - Nurse/Tech; Complete Time: 13:52 [facility] 09/10 12:17 Order name: IV Saline Lock - Large Bore; Complete Time: 13:22 [facility] 09/10 12:17 Order name: Labs collected and sent; Complete Time: : [facility] 09/10 12:17 Order name: O2 Per Protocol; Complete Time: : [facility] 09/10 12:17 Order name: O2 Sat Monitoring; Complete Time: : [facility] 09/10 12:17 Order name: Vital Signs; Complete Time: : [facility] EC:42 Rate is 54 beats/min. Rhythm is regular. QRS [place] is Normal. [place] interval is normal at [facility] 146 msec. QRS interval is normal at 100 msec. QT interval is prolonged at 524 msec. No Q waves. T waves are Inverted in lead V1. Clinical impression: Sinus bradycardia. Administered Medications: 13:52 Drug: NS 0.9% IV (30 ml/kg) 30 ml/kg Route: IV; Rate: bolus; Site: right antecubital; kr3 15:49 Drug: Potassium PO Effervescent Tablet 50 mEq Route: PO; kr3 19:36 Follow up: Response: No adverse reaction kr3 15:49 Drug: Potassium Chloride IV 10 mEq Route: IV; Rate: 1 calculated rate; Site: right kr3 forearm; 19:36 Follow up: Response: No adverse reaction; IV Status: Completed infusion; IV Intake: [id number] 15:49 Drug: Rocephin IV 1 grams Route: IV; Rate: 1 calculated rate; Site: right forearm; kr3 19:36 Follow up: Response: No adverse reaction; IV Status: Completed infusion; IV Intake: [id number] 15:50 Drug: NS 0.9% IV (30 ml/kg) 30 ml/kg Route: IV; Rate: bolus; Site: right forearm; kr3 19:36 Follow up: Response: No adverse reaction; IV Intake: 1850ml kr3 20:19 Drug: Acetaminophen PO 650 mg Route: PO; kr3 20:29 Follow up: Response: No adverse reaction kr3 Disposition Summary: 09/10/22 14:43 Hospitalization Ordered Hospitalization Status: Inpatient Admission [facility] Provider: Bigg Becerra [facility] Location: Telemetry/MedSur (Inpatient) [facility] Condition: Stable [facility] Problem: new [facility] Symptoms: have worsened [facility] Bed/Room Type: Standard [facility] Room Assignment: 208(09/10/22 18:14) dw Diagnosis - UTI/ Urinary tract infection, site not specified jh7 - Hypokalemia 7 - Severe sepsis without septic shock [facility] Forms: - Medication Reconciliation Form [facility] - SBAR form [facility] Signatures: Dispatcher [employer] Rubina Medel RN RN dw Rishi Rios PA PA jmm Lewis, Lynsay, RN RN 1 Daya Huber, HEARING OFFICER HEARING OFFICER 7 Susie Stanley RN RN kr3 Bniu Bermudez MD MD bs3 Corrections: (The following items were deleted from the chart) 18:14 14:43 [facility]
[2022-09-10] MEDS ORDERED: POTASSIUM CL SA 10 MEQ TAB PO ONE (15:41)
[2022-09-10] MEDS ORDERED: KCL 20 MEQ/100 mL IVPB 100 ML IV ONE (15:41)
[2022-09-10] MEDS ORDERED: CEFTRIAXONE 1000 MG/VIAL ONE (15:42)
--- NOTE | 2022-09-10 17:51 | P.HP ---
Certification for Inpatient Patient admitted to: Inpatient With expected LOS: >2 Midnights Practitioner: I am a practitioner with admitting privileges, knowledge of patient current condition, hospital course, and medical plan of care. Services: Services provided to patient in accordance with Admission requirements found in Title 42 Section 412.3 of the Code of Federal Regulations Patient History Date of Service: 09/10/22 Reason for admission: Fever and chills and dysuria History of Present Illness: 72-year-old man with a history of multiple myeloma in remission presented to the clinic in [place] with a complaint of fever chills, dysuria, urinary frequency of 1 week duration. Patient noted to have low blood pressure with systolic in the 80s. She was therefore referred to the emergency department for further management. Patient was normotensive on arrival to the ED. no fever recorded in the ED. Patient reports fever up to 103 yesterday. UA done in the emergency de partment suggest UTI. She has no leukocytosis. Lactic acid mildly elevated, she has hypokalemia. Sepsis protocol initiated in the ED and patient given IV Rocephin and IV fluid. She is admitted for further management. Allergies No Known Drug Allergies Allergy (Verified 09/03/20 05:33) Unknown Home Medications: Aspirin [Aspirin EC 81 MG] 81 mg PO DAILY 09/03/20 Atorvastatin Calcium [Lipitor] 80 mg PO DAILY 09/03/20 Bimatoprost [Lumigan Opthalmic Drops*] 1 drop EACH EYE DAILY 09/03/20 Calcium Carbonate/Vitamin D3 [Calcium 600 mg-D3 20 Mcg Tab] 500 mg PO BID 09/03/20 Famotidine [Pepcid*] 20 mg PO BID #60 tab 09/03/20 Lactobacillus Acidophilus [Acidophilus Lactobacilli] 1 each PO TID #30 capsule 09/03/20 Losartan/Hydrochlorothiazide [Losartan-Hctz 100-25 mg Tab] 1 tab PO DAILY 09/03/20 Valacyclovir HCl [Valacyclovir] 1 tab PO DAILY 04/19/22 Albuterol Neb [Proventil 0.083% Neb Soln] 2.5 mg NEB Q6HP PRN #60 amp 04/23/22 Benzonatate [Tessalon Perle*] 200 mg PO TID PRN #30 cap 04/23/22 Hydrocodone 5/APAP 325 [Piqua 5/325*] 1 tab PO Q12HP PRN #14 tab 04/23/22 Magnesium Chloride [Slow-Mag] 64 mg PO M,W,F #30 tab 04/23/22 Potassium Chloride [K-Dur] 20 meq PO DAILY #30 tab 04/23/22 levoFLOXacin [Levaquin*] 750 mg PO Q48H #7 tab 04/23/22 - Past Medical/Surgical History Diabetic: No -: CAD, MA -: Hypertension -: High Cholesterol -: Multiple myeloma-in remission -: gastritis -: copd -: tubal ligation -: Stem-cell transplant Psychosocial/ Personal History: Patient is unemployed, lives with her - Family History Mother -: Heart disease, Stroke Notes: dementia Father -: Cancer Notes: colon - Social History Alcohol use: No CD- Drugs: No Caffeine use: Yes Review of Systems Other: Patient admitted to nausea, she denies any vomiting, she denies diarrhea, she denies abdominal pain, she denies flank pain. Except as documented, all other systems reviewed and negative. Physical Examination - Physical Exam General: Alert, In no apparent distress, Oriented x3 HEENT: Mucous membr. moist/pink, Sclerae nonicteric Neck: Supple, JVD not distended Respiratory: Clear to auscultation bilaterally, Normal air movement Cardiovascular: No edema, Regular rate/rhythm, Normal S1 S2 Gastrointestinal: Normal bowel sounds, Soft and benign, Non-distended, Tenderness (Right costovertebral angle tenderness) Musculoskeletal: No swelling, No tenderness Integumentary: No rashes, No cyanosis Neurological: Normal strength at 5/5 x4 extr, Cranial nerves 3-12 intact Lymphatics: No axilla or inguinal lymphadenopathy - Studies Laboratory Data (last 24 hrs) 09/10/22 13:15: PT 14.2 H, INR 1.29, APTT 27.7 09/10/22 13:15: Sodium 134 L, Potassium 2.5 L*, BUN 18, Creatinine 1.33 H, Glucose 159 H, Total Bilirubin 0.6, AST 15, ALT 26, Alkaline Phosphatase 97 09/10/22 13:15: WBC 4.90, Hgb 10.2 L, Hct 30.3 L, Plt Count 209 Assessment and Plan - Problems (Diagnosis) (1) Sepsis Current Visit: Yes Status: Acute (2) Acute cystitis with hematuria Current Visit: Yes Status: Acute (3) Multiple myeloma Current Visit: Yes Status: Acute (4) Essential hypertension Current Visit: Yes Status: Acute - Plan Admitted to the medical floor. Sepsis protocol initiated in the ED Continue IV fluid. High risk for immunosuppression given that patient is on maintenance immunosuppressive drug for multiple myeloma. Start IV cefepime Obtain CT abdomen and pelvis to assess for pyelonephritis/perinephric abscess. Follow blood cultures and urine culture. Heart healthy diet as tolerated. Continue prophylactic valacyclovir. Hold antihypertensives for now given sepsis.
[2022-09-10] MEDS ORDERED: ACETAMINOPHEN 500 MG TAB ONE (20:18)
[2022-09-10] MEDS ORDERED: NA CHLORIDE 0.9% 500 ML IV ONE (21:02)
[2022-09-10] MEDS ORDERED: ACETAMINOPHEN 500 MG TAB PO PRN (21:02)
[2022-09-10] MEDS ORDERED: ONDANSETRON 4 MG/2 ML VIAL IV PRN (21:02)
[2022-09-10 21:12] VITALS: BMI 24.7
[2022-09-10 21:22] VITALS: O2SAT 96
[2022-09-10] MEDS: NA CHLORIDE 0.9% 1,000 ML IV SCH (22:00)
[2022-09-10] MEDS ORDERED: CEFEPIME 1 GM in NA CHLORIDE 0.9% 100 ML IV SCH (22:00)
--- NOTE | 2022-09-10 23:45 | RAD REPORT ---
EXAM DESCRIPTION: CTAbdomen Pelvis Wo Contrast - 09/10/2022 11:33 pm CLINICAL HISTORY: Sepsis COMPARISON: Abdomen Pelvis Wo Contrast dated 09/03/2020; Abdomen Pelvis W Contrast dated 09/08/2017 ; Abdomen Pelvis Wo Contrast dated 06/11/2016 TECHNIQUE: CT of the abdomen and pelvis was performed. All CT scans are performed using dose optimization technique as appropriate and may include automated exposure control or mA/KV adjustment according to patient size. FINDINGS: Lower chest: Aortic valve calcifications. Coronary artery calcifications. Left basilar sca rring. Liver: No acute abnormality or suspicious lesions. Biliary: No biliary ductal dilatation. Stomach: No significant focal abnormality. Duodenum: No significant focal abnormality. Pancreas: No significant abnormality. 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 Adrenal: No suspicious lesions. Kidney/ureter: Mild left-sided hydronephrosis with periureteric stranding. No ureteral calculi. Retroperitoneum: No retroperitoneal adenopathy. Vascular: No aneurysm. Atherosclerosis . Bowel: Diverticulosis without diverticulitis. No bowel obstruction. Normal appendix . Peritoneum: No ascites or free air. Bladder: Grossly unremarkable. Reproductive: No adnexal masses. 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 Other: n/a IMPRESSION: No acute intra-abdominal or pelvic finding. Mild left-sided hydroureteronephrosis without obstructing stone or mass. This could be secondary to a recently passed stone or ascending urinary tract infection.
[2022-09-10] MEDS ORDERED: POTASSIUM 25 MEQ EFFERV TAB PO ONE (23:57)
[2022-09-11] MEDS ORDERED: CEFEPIME 2 GM in NA CHLORIDE 0.9% 100 ML IV SCH (01:00)
[2022-09-11 05:59] LABS: Absolute Lymphocytes (CBC) 1.5 K/uL (0.7-4.9); Hematocrit 27.7 % (36.0-45.0); Lymphocytes % 20.3 % (15.3-44.8); MCV 106.2 fL (80-100); MPV 11.4 fL (7.6-11.3); RBC Red Blood Cell Count 2.61 M/uL (3.86-4.86)
[2022-09-11 06:13] LABS: Magnesium 1.3 mg/dL (1.6-2.4); Phosphorus 2.1 mg/dL (2.5-4.9); Potassium 3.9 mEq/L (3.5-5.1)
[2022-09-11 06:39] LABS: Blood Morphology Comment NOTED (NOT SEEN); Macrocytosis 1+; Platelet Estimate ADEQ; White Blood Cell Scan OK (OK)
[2022-09-11] MEDS: ASPIRIN EC 81 MG TAB PO SCH (08:13)
[2022-09-11] MEDS: ATORVASTATIN 80 MG TAB PO SCH (08:13)
[2022-09-11] MEDS: ENOXAPARIN 30 MG/0.3 ML SQ SCH (08:13)
[2022-09-11] MEDS: VALACYCLOVIR 500 MG TAB PO SCH (08:14)
[2022-09-11] MEDS ORDERED: POTASSIUM CL SA 10 MEQ TAB PO ONE (09:00)
[2022-09-11] MEDS: CEFEPIME 1 GM in NA CHLORIDE 0.9% 100 ML IV SCH ×2 (09:00→20:22)
[2022-09-11] MEDS: NA CHLORIDE 0.9% 1,000 ML IV SCH ×2 (09:55→20:11)
--- NOTE | 2022-09-11 11:29 | P.INFCA ---
Sepsis Focused Assessment - Sepsis Screen Result Severe Sepsis: Positive - Evaluation Current stage of sepsis: Severe sepsis - Vital Signs Reviewed: Yes Temperature: 97.4 F Heart rate: 63 Blood Pressure: 154/60 Respiratory Rate: 14 O2 Sat by Pulse Oximetry: 98 - Examination Date exam was performed: 09/10/22 Time exam was performed: 18:30 Heart: Regular rate/rhythm, S1, S2 Lungs: Clear bilaterally, Rhonchi, Wheezes Peripheral pulses: 3+ Normal Peripheral pulse location: Radial Capillary refill: <2 Seconds Skin examination: Normal turgor
--- NOTE | 2022-09-11 11:41 | P.PN ---
Subjective Date of Service: 09/11/22 Chief Complaint: Fever and chills and dysuria Patient states she feels fine and has no complaint today. She denies any fever or chills. She denies any anorexia. Physical Examination - Vital Signs Temperature: 97.4 F Blood Pressure: 154/60 Pulse: 63 Respirations: 14 Pulse Ox (%): 98 - Physical Exam General: Alert, In no apparent distress, Oriented x3 HEENT: Mucous membr. moist/pink Neck: Supple, JVD not distended Respiratory: Clear to auscultation bilaterally, Normal air movement Cardiovascular: No edema, Regular rate/rhythm, Normal S1 S2 Gastrointestinal: Normal bowel sounds, Soft and benign, Non-distended, No tenderness Musculoskeletal: No swelling Integumentary: No rashes, No cyanosis Neurological: Normal strength at 5/5 x4 extr - Studies Laboratory Data (last 24 hrs) 09/10/22 13:15: PT 14.2 H, INR 1.29, APTT 27.7 09/10/22 13:15: Sodium 134 L, Potassium 2.5 L*, BUN 18, Creatinine 1.33 H, Glucose 159 H, Total Bilirubin 0.6, AST 15, ALT 26, Alkaline Phosphatase 97 09/10/22 13:15: WBC 4.90, Hgb 10.2 L, Hct 30.3 L, Plt Count 209 Assessment And Plan - Current Problems (Diagnosis) (1) Sepsis Current Visit: Yes Status: Acute (2) Acute cystitis with hematuria Current Visit: Yes Status: Acute (3) Multiple myeloma Current Visit: Yes Status: Acute (4) Essential hypertension Current Visit: Yes Status: Acute - Plan Blood culture x2 growing GNR. Urine culture also growing GNR. CT abdomen pelvis suggests mild left hydroureteronephrosis suggesting ascending UTI. Continue IV fluid. High risk for immunosuppression given that patient is on maintenance immunosuppressive drug for multiple myeloma. Continue IV cefepime Follow blood cultures and urine culture results Infectious disease consult. Heart healthy diet as tolerated. Continue prophylactic valacyclovir. Patient is now hypertensive. Resume home antihypertensives.
--- NOTE | 2022-09-11 14:18 | EKG ---
Test Date: 2022-09-10 Test Time: 13:42:04 Occasional Babysitter: DAVINA MEASUREMENT RESULTS: Intervals: Rate: 54 NM: 146 QRSD: 100 QT: 524 QTc: 496 [place]: P: 46 NM: 146 QRS: 54 T: 53 INTERPRETIVE STATEMENTS: Sinus bradycardia Prolonged QT Abnormal ECG Compared to ECG 09/03/2020 01:53:51 Sinus rhythm no longer present ST (T wave) deviation no longer present Possible ischemia no longer present Electronically Signed On 09-11-22 14:17:01 CDT by Nithin Aguilar
[2022-09-11] MEDS: PANTOPRAZOLE 40MG TABLET PO SCH (16:30)
[2022-09-11] MEDS ORDERED: HOME MED 1 EA UNK (Omeprazole [Prilosec] 40 MG Capsule.Dr) PO SCH (21:00)
[2022-09-12 04:16] LABS: Potassium 3.3 mEq/L (3.5-5.1)
[2022-09-12] MEDS: NA CHLORIDE 0.9% 1,000 ML IV SCH ×2 (06:09→13:02)
[2022-09-12] MEDS ORDERED: POTASSIUM CL SA 10 MEQ TAB PO ONE ×2 (08:50→21:00)
[2022-09-12] MEDS ORDERED: Magnesium Sulfate 2gm IVPB 2 G/50 ML BAG IV ONE (08:50)
[2022-09-12] MEDS ORDERED: HOME MED 1 EA UNK (Losartan/Hydrochlorothiazide [Losartan-Hctz 100-25 Mg Tab] 1 EACH Table PO SCH (09:00)
[2022-09-12] MEDS: PANTOPRAZOLE 40MG TABLET PO SCH ×2 (09:22→16:22)
[2022-09-12] MEDS: ASPIRIN EC 81 MG TAB PO SCH (09:24)
[2022-09-12] MEDS: LOSARTAN/HCTZ 50-12.5 PO SCH (09:24)
[2022-09-12] MEDS: CEFEPIME 1 GM in NA CHLORIDE 0.9% 100 ML IV SCH ×2 (09:24→21:31)
[2022-09-12] MEDS: ENOXAPARIN 30 MG/0.3 ML SQ SCH (09:24)
[2022-09-12] MEDS: ATORVASTATIN 80 MG TAB PO SCH (09:24)
[2022-09-12] MEDS: VALACYCLOVIR 500 MG TAB PO SCH (09:25)
--- NOTE | 2022-09-12 10:02 | P.CNS ---
Date of Consult: 09/12/22 Reason for Consult: Sepsis, UTI Chief Complaint: Fever and chills and dysuria History of Present Illness: Patient is a 72 yo female with a PMH of multiple myeloma in remission who presented to the clinic in [place] with complaints of fever, chills, dysuria a nd urinary frequency of 1 week duration. Patient was noted to have low blood pressure with systolic in the 80s and was subsequently referred to the emergency department for further management. Patient was normotensive on arrival to the ED, no fever recorded in the ED. Patient reports fever up to 103 yesterday. UA done in the emergency department suggestive of UTI. No leukocytosis, Lactic acid mildly elevated, hypokalemia. Sepsis protocol initiated in the ED and was given IV Rocephin and IV fluid. She was admitted for further management. ID consulted for sepsis and E.coli UTI. Allergies No Known Drug Allergies Allergy (Verified 09/10/22 21:01) Unknown Home medications list reviewed: Yes Home Medications: Aspirin [Aspirin EC 81 MG] 81 mg PO DAILY 09/03/20 Atorvastatin Calcium [Lipitor] 80 mg PO DAILY 09/03/20 Bimatoprost [Lumigan Opthalmic Drops*] 1 drop EACH EYE DAILY 09/03/20 Calcium Carbonate/Vitamin D3 [Calcium 600 mg-D3 20 Mcg Tab] 600 mg PO BID 09/03/20 Losartan/Hydrochlorothiazide [Losartan-Hctz 100-25 mg Tab] 1 tab PO DAILY 09/03/20 Valacyclovir HCl [Valacyclovir] 1 tab PO DAILY 04/19/22 Cholecalciferol (Vitamin D3) [Vitamin D] 400 unit PO DAILY 09/10/22 Omeprazole [Prilosec] 40 mg PO BID 09/10/22 - Past Medical/Surgical History Diabetic: No -: CAD, OR -: Hypertension -: High Cholesterol -: Multiple myeloma-in remission -: gastritis -: copd -: tubal ligation -: Stem-cell transplant Psychosocial/ Personal History: Patient is unemployed, lives with her - Family History Mother Medical History: Heart disease, Stroke Notes: dementia Father Medical History: Cancer Notes: colon - Social History Smoking Status: Current every day smoker Alcohol use: No CD- Drugs: No Caffeine use: Yes Place of Residence: Home Review of Systems Unremarkable Physical Examination Temp Pulse Resp BP Pulse Ox 97.4 F 64 16 193/75 H 98 0605/23 08:00 09/12/22 08:00 09/12/22 08:00 09/12/22 08:00 09/12/22 08:00 General: Alert, In no apparent distress, Oriented x3 HEENT: Atraumatic, Normocephalic, PERRLA Neck: Supple, JVD not distended Respiratory: Clear to auscultation bilaterally, Normal air movement, Other (On Room Air) Cardiovascular: No edema, Normal pulses Capillary refill: <2 Seconds Gastrointestinal: Normal bowel sounds, Soft and benign, Non-distended Musculoskeletal: No clubbing, No swelling Integumentary: No rashes, No breakdown Neurological: Normal speech, Normal tone, Normal affect Laboratory Data - UA 09/10: LE 500, RBC 5-10, WBC >50, Bacteria >50 Microbiology Data - Reviewed Imagings Data: - Reviewed Conclusions/Impression: Problem List Sepsis Bacteremia Acute Cystitis Multiple Myeloma in Remission Hypertension Bacteremia Anemia Mild PCM Sepsis Bacteremia Acute Cystitis, E.coli - UA 09/10 with pyuria and bacteruria - Urine Culture 09/10: E.coli - Blood cultures 09/10: Gram negative rods - Currently on Cefepime (started 09/11) - No leukocytosis. Afebrile - Patient denies dysuria, urgency or frequency at this time. No abdominal pain or flank pain. Recommendations - Bacteremia: Continue Cefepime x 2 weeks duration (started 09/11) - Awaiting final blood culture results. will adjust antibiotics as appropriate. - UTI: E.coli, suscepitble to Cefepime - Monitor WBC and fever trends - Arrange for d/c home with home health and PICC line for continued IV antibiotics for bacteremia if insurance allows. ID will follow up and monitor patient closely. Case discussed with Kip Patel. Thank you Dr. Chacon for consult.
--- NOTE | 2022-09-12 13:04 | P.PN ---
Subjective Date of Service: 09/12/22 Chief Complaint: Fever and chills and dysuria Patient denies any complaint. She states that she has improved to baseline and desires to go home. She denies any fever or chills. Physical Examination - Vital Signs Temperature: 97.4 F Blood Pressure: 193/75 Pulse: 64 Respirations: 16 Pulse Ox (%): 98 - Physical Exam General: Alert, In no apparent distress, Oriented x3 HEENT: Mucous membr. moist/pink Neck: Supple, JVD not distended Respiratory: Clear to auscultation bilaterally, Normal air movement Cardiovascular: No edema, Regular rate/rhythm, Normal S1 S2 Gastrointestinal: Normal bowel sounds, Soft and benign, Non-distended, No tenderness Musculoskeletal: No swelling Integumentary: No rashes, No cyanosis Neurological: Normal strength at 5/5 x4 extr - Studies Microbiology Data (last 24 hrs): 09/10/22 13:40 Clean Catch Urine [place] Count - Final >100,000 CFU/ML. 09/10/22 13:40 Clean Catch Urine - Final Escherichia Coli Gram Neg [place] 09/10/22 13:15 Blood - Blood Blood Culture Gram Stain - Final 09/10/22 13:15 Blood - Blood Gram Stain - Final 09/10/22 13:00 Blood - Blood Blood Culture Gram Stain - Final 09/10/22 13:00 Blood - Blood Gram Stain - Final Assessment And Plan - Current Problems (Diagnosis) (1) Sepsis Current Visit: Yes Status: Acute (2) Acute cystitis with hematuria Current Visit: Yes Status: Acute (3) Multiple myeloma Current Visit: Yes Status: Acute (4) Essential hypertension Current Visit: Yes Status: Acute - Plan Blood culture x4 growing GNR. Urine culture also growing pansensitive E. coli. CT abdomen pelvis suggests mild left hydroureteronephrosis suggesting ascending UTI. Continue IV fluid. High risk for immunosuppression given that patient is on maintenance immunosuppressive drug for multiple myeloma. Continue IV cefepime. Infectious disease consulted. Recommendation appreciated. Dr. Lofton recommended at least 2 weeks of IV Cefepime. PICC line ordered for outpatient IV antibiotics Follow blood cultures for organism identification. Resume oral calcium supplementation and vitamin D supplementation given hypocalcemia. Patient hypocalcemia with IV calcium as needed. Continue prophylactic valacyclovir. Continue home antihypertensives.
[2022-09-12] MEDS: CALCIUM GLUCONATE 1 GM IVPB 1 GM/50 ML BAG IV SCH ×2 (13:38→14:30)
[2022-09-12] MEDS: Mupirocin NASAL 2 APPL/1 GM TUBE NAS SCH (21:00)
[2022-09-12] MEDS: CALCIUM CARB 500MG/VIT D 200 IU TAB PO SCH (21:31)
[2022-09-13 05:27] LABS: Absolute Lymphocytes (CBC) 1.1 K/uL (0.7-4.9); Hematocrit 24.2 % (36.0-45.0); Lymphocytes % 28.8 % (15.3-44.8); MCV 104.3 fL (80-100); MPV 10.9 fL (7.6-11.3); RBC Red Blood Cell Count 2.32 M/uL (3.86-4.86)
[2022-09-13 05:38] LABS: Magnesium 1.6 mg/dL (1.6-2.4); Potassium 4.1 mEq/L (3.5-5.1)
--- NOTE | 2022-09-13 06:54 | P.PN ---
Date of Service: 09/13/22 Subjective: Feeling better today wanting to go home no pain noted, +afebrile no new / worsening symptoms ROS: 10 point ROS as noted above, otherwise negative Physical Exam: GEN: Alert, oriented, NAD HEENT: Normal conjunctiva, sclera anicteric CV: Regular rate and rhythm, no edema Pulm: Nonlabored respirations on room air ABD: Soft, nontender, nondistended MSK: No joint tenderness Integumentary: No rashes Neuro: Normal speech, normal affect vitals reviewed Problem List: Sepsis secondary to UTI Acute cystitis with hematuria Multiple myeloma Hypertension High risk for immunosuppression given that patient is on maintenance immunosuppressive drug for multiple myeloma. Blood culture x4 growing E. coli., GNR. Urine culture also growing pansensitive E. coli. CT abdomen pelvis suggests mild left hydroureteronephrosis suggesting ascending UTI. Infectious disease consulted. IV cefepime swapped to IV rocephin 6/6 PICC line ordered for outpatient IV antibiotics Resume oral calcium supplementation and vitamin D supplementation given hypocalcemia. Patient hypocalcemia with IV calcium as needed. Continue prophylactic valacyclovir. Continue home antihypertensives. Continue IVF VTE: Lovenox Code: Full Dispo: ~1 day
[2022-09-13] MEDS ORDERED: MAGNESIUM SULFATE 1 gm IVPB 1 GM/100 ML BAG IV ONE (08:00)
[2022-09-13 08:47] LABS: Blood Morphology Comment NOT SEEN (NOT SEEN); Platelet Estimate ADEQ
[2022-09-13] MEDS ORDERED: ENOXAPARIN 40 MG/0.4 ML SQ SCH (09:00)
[2022-09-13] MEDS ORDERED: VITAMIN D 400 UNIT TAB PO SCH (09:00)
[2022-09-13] MEDS: PANTOPRAZOLE 40MG TABLET PO SCH (09:04)
[2022-09-13] MEDS: POTASS/SODIUM PHOSPHATE 1 PKT POWD.PACK PO SCH (09:05)
[2022-09-13] MEDS: Mupirocin NASAL 2 APPL/1 GM TUBE NAS SCH (09:06)
[2022-09-13] MEDS: CEFEPIME 1 GM in NA CHLORIDE 0.9% 100 ML IV SCH (09:06)
[2022-09-13] MEDS: ATORVASTATIN 80 MG TAB PO SCH (09:06)
[2022-09-13] MEDS: ASPIRIN EC 81 MG TAB PO SCH (09:06)
[2022-09-13] MEDS ORDERED: CEFEPIME 1 GM/VIAL ONE (09:06)
[2022-09-13] MEDS: LOSARTAN/HCTZ 50-12.5 PO SCH (09:06)
[2022-09-13] MEDS: CALCIUM CARB 500MG/VIT D 200 IU TAB PO SCH (09:07)
[2022-09-13] MEDS: VALACYCLOVIR 500 MG TAB PO SCH (09:07)
[2022-09-13] MEDS ORDERED: NA CHLORIDE 0.9% 100 ML ONE (09:08)
--- NOTE | 2022-09-13 09:10 | P.PN ---
Date of Service: 09/13/22 Chief Complaint: Fever and chills and dysuria Subjective: Patient sitting in chair, in good spirits. A&Ox4. at bedside. Denies any complaints at this time. No acute events reported overnight. Physical Examination Temp Pulse Resp BP Pulse Ox 98.5 F 61 14 137/55 L 97 09/13/22 04:00 09/13/22 04:00 09/13/22 04:00 09/13/22 04:00 09/13/22 04:00 General: Alert, In no apparent distress, Oriented x3 HEENT: Atraumatic, Normocephalic, PERRLA Neck: Supple, JVD not distended Respiratory: Clear to auscultation bilaterally, Normal air movement, Other (On Room Air) Cardiovascular: No edema, Normal pulses Capillary refill: <2 Seconds Gastrointestinal: Normal bowel sounds, Soft and benign, Non-distended Musculoskeletal: No clubbing, No swelling Integumentary: No rashes, No breakdown Neurological: Normal speech, Normal tone, Normal affect Laboratory Data - UA 09/10: LE 500, RBC 5-10, WBC >50, Bacteria >50 Microbiology Data - Reviewed Imagings Data: - Reviewed Conclusions/Impression: Problem List Sepsis Bacteremia Acute Cystitis Multiple Myeloma in Remission Hypertension Bacteremia Anemia Mild PCM Sepsis Bacteremia Acute Cystitis, E.coli - UA 09/10 with pyuria and bacteruria - Urine Culture 09/10: E.coli - Blood cultures 09/10: Gram negative rods - Currently on Cefepime (started 09/11) - No leukocytosis. Afebrile - Patient denies dysuria, urgency or frequency at this time. No abdominal pain or flank pain. Recommendations Switch antibiotic from Cefepime to Rocephin 1g IV Q24H - Bacteremia: Continue antibiotic therapy for at least 2 weeks duration (started 09/11). - UTI: E.coli - Monitor WBC and fever trends - Arrange for d/c home with home health and PICC line for 2 weeks antibiotic therapy for bacteremia. Care management on case. ID will follow the patient as needed. Case discussed with Dunia Patel
--- NOTE | 2022-09-13 11:39 | RAD REPORT ---
EXAM DESCRIPTION: RAD - Chest Single View - 09/12/2022 11:41 pm CLINICAL HISTORY: AP portable chest x-ray upright on 09/12/2022, at 23: 36. COMPARISON: None. FINDINGS: Heart: Normal size and configuration. Mediastinal Structures: There is atherosclerosis of the thoracic aorta. A right-sided PICC line is been placed with distal tip at the atrial caval junction. Lung [place]: No active disease. Pulmonary Vascularity: Normal. Pleural Space: No active disease. Bony Structures: Normal. IMPRESSION: 1. Successful placement right-sided PICC line. 2. Atherosclerotic disease. Electronically signed by: Juan De La Cruz MD 09/13/2022 12:54 AM CDT Due to temporary technical issues with the PACS/Fluency reporting system, reports are being signed by the in house radiologists without review as a courtesy to insure prompt reporting. The interpreting radiologist is fully responsible for the content of the report.
[2022-09-13] MEDS ORDERED: CEFTRIAXONE 1,000 MG in NA CHLORIDE 0.9% 50 ML IVPB ONE (12:16)
[2022-09-13 14:54] VITALS: BP 119/50; TEMP 98.6
--- NOTE | 2022-09-14 07:16 | P.DS ---
Admission Date: 09/10/22 Discharge Date: 09/13/22 Disposition: [facility] HOME/HOME HEALTH CARE Reason for Admission: Fever and chills and dysuria Consultations: Infectious Disease - Dr. Lofton Brief History of Present Illness: 72-year-old man with a history of multiple myeloma in remission presented to the clinic in [place] with a complaint of fever chills, dysuria, urinary frequency of 1 week duration. Patient noted to have low blood pressure with systolic in the 80s. She was therefore referred to the emergency department for further management. Patient was normotensive on arrival to the ED. no fever recorded in the ED. Patient reports fever up to 103 yesterday. UA done in the emergency department suggest UTI. She has no leukocytosis. Lactic acid mildly elevated, she has hypokalemia. Sepsis protocol initiated in the ED and patient given IV Rocephin and IV fluid. She is admitted for further management. Hospital Course: Problem List: Sepsis secondary to UTI (E.coli) Acute cystitis with hematuria Multiple myeloma Hypertension iron deficiency anemia, chronic Patient presented with fever chills, dysuria, increased urinary frequency for a week. CT abdomen reported mild left hydroureteronephrosis suggesting ascending UTI. E. coli was found to be growing in the blood and urine cultures. ID was consulted and recommended IV antibiotic treatment for total of 14 days. Patient received IV cefepime empirically during hospitalization and was switched to IV rocephin on day of discharge. She tolerated well and was discharged home with home health to complete the total of 14 days. PICC line placed prior to discharge She was noted to have iron deficiency anemia, which she reports a long standing history. She denied any bleeding. She states she has f/u labs to be drawn from her Oncologist later this week and will have a follow up appointment. She can discuss levels and if needs IV iron vs epogen at that time. Hgb on day of discharge is 8.3, similar to where it was on discharge in April Recommend repeat renal ultrasound in a few weeks to f/u on resolution of mild left hydroureteronephrosis New Prescriptions: Continue IV Rocephin; end date: 09/25/22 Iron replacement Follow up: PCP 3-5 days Heme/Onc as scheduled Physical Exam: GEN: Alert, oriented, NAD HEENT: Normal conjunctiva, sclera anicteric CV: Regular rate and rhythm, no edema Pulm: Nonlabored respirations on room air ABD: Soft, nontender, nondistended Neuro: Normal speech, normal affect Vital Signs/Physical Exam: Temp Pulse Resp BP Pulse Ox 98.6 F 63 16 119/50 L 100 09/13/22 12:00 09/13/22 12:00 09/13/22 12:00 09/13/22 12:00 09/13/22 12:00 Laboratory Data at Discharge: WBC 4.00 thou/uL (4.3-10.9) L 09/13/22 05:10 Hgb 8.3 g/dL (12.0-15.0) L 09/13/22 05:10 Hct 24.2 % (36.0-45.0) L 09/13/22 05:10 Plt Count 162 thou/uL (152-406) 09/13/22 05:10 PT 14.2 SECONDS (9.5-12.5) H 09/10/22 13:15 INR 1.29 09/10/22 13:15 APTT 27.7 SECONDS (24.3-36.9) 09/10/22 13:15 Sodium 138 mEq/L (136-145) 09/13/22 05:10 Potassium 4.1 mEq/L (3.5-5.1) 09/13/22 05:10 BUN 9 mg/dL (7-18) 09/13/22 05:10 Creatinine 0.74 mg/dL (0.55-1.02) 09/13/22 05:10 Glucose 95 mg/dL (74-106) 09/13/22 05:10 Phosphorus 2.0 mg/dL (2.5-4.9) L 09/13/22 05:10 Magnesium 1.6 mg/dL (1.6-2.4) 09/13/22 05:10 Total Bilirubin 0.6 mg/dL (0.2-1.0) 09/10/22 13:15 AST 15 U/L (15-37) 09/10/22 13:15 ALT 26 U/L (13-56) 09/10/22 13:15 Alkaline Phosphatase 97 U/L (45-117) 09/10/22 13:15 Home Medications: Aspirin [Aspirin EC 81 MG] 81 mg PO DAILY 09/03/20 Atorvastatin Calcium [Lipitor] 80 mg PO DAILY 09/03/20 Bimatoprost [Lumigan Opthalmic Drops*] 1 drop EACH EYE DAILY 09/03/20 Calcium Carbonate/Vitamin D3 [Calcium 600 mg-D3 20 Mcg Tab] 600 mg PO BID 09/03/20 Losartan/Hydrochlorothiazide [Losartan-Hctz 100-25 mg Tab] 1 tab PO DAILY 09/03/20 Valacyclovir HCl [Valacyclovir] 1 tab PO DAILY 04/19/22 Cholecalciferol (Vitamin D3) [Vitamin D3] 400 unit PO DAILY 09/10/22 Omeprazole [Prilosec] 40 mg PO BID 09/10/22 Ferrous Sulfate [Iron] 325 mg PO DAILY 30 Days #30 tab 09/13/22 New Medications: Ferrous Sulfate [Iron] 325 mg PO DAILY 30 Days #30 tab Physician Discharge Instructions: Patient presented with fever chills, dysuria, increased urinary frequency for a week. CT abdomen reported mild left hydroureteronephrosis suggesting ascending UTI. E. coli was found to be growing in the blood and urine cultures. ID was consulted and recommended IV antibiotic treatment for total of 14 days. Patient received IV cefepime empirically during hospitalization and was switched to IV rocephin on day of discharge. She tolerated well and was discharged home with home health to complete the total of 14 days. PICC line placed prior to discharge She was noted to have iron deficiency anemia, which she reports a long standing history. She denied any bleeding. She states she has f/u labs to be drawn from her Oncologist later this week and will have a follow up appointment. She can discuss levels and if needs IV iron vs epogen at that time. Hgb on day of discharge is 8.3, similar to where it was on discharge in April Recommend repeat renal ultrasound in a few weeks to f/u on resolution of mild left hydroureteronephrosis New Prescriptions: Continue IV Rocephin; end date: 09/25/22 Iron replacement Follow up: PCP 3-5 days Heme/Onc as scheduled Followup: Adriel SIMSOT [Primary Care Provider] - Time spent managing pt's care (in minutes): 45
== END 2022-09-13 14:54 | disposition home health service (06) | DRG 872 ==
LOC: ER 11:56 → ERHOLD 17:26 → 2ND 20:02
PROVIDERS: ADMIT Internal Medicine; ATTEND Hospitalist
PROC: 02HV33Z Insertion of Infusion Device into Superior Vena Cava, Percutaneous Approach (ICD-10-PCS; principal; 2022-09-12)
DX: A41.51 Sepsis due to Escherichia coli [E. coli] (principal); N30.01 Acute cystitis with hematuria; C90.00 Multiple myeloma not having achieved remission; E44.1 Mild protein-calorie malnutrition; R65.20 Severe sepsis without septic shock; E78.00 Pure hypercholesterolemia, unspecified; E87.6 Hypokalemia; E83.51 Hypocalcemia; I10 Essential (primary) hypertension; D64.9 Anemia, unspecified; I25.10 Atherosclerotic heart disease of native coronary artery without angina pectoris; I25.2 Old myocardial infarction; F17.200 Nicotine dependence, unspecified, uncomplicated; Z56.0 Unemployment, unspecified; Z86.73 Personal history of transient ischemic attack (TIA), and cerebral infarction without residual deficits; Z68.24 Body mass index [BMI] 24.0-24.9, adult; Z79.82 Long term (current) use of aspirin; Z98.51 Tubal ligation status; Z79.899 Other long term (current) drug therapy
CPT/HCPCS: 36415; 36569; 71045; 74176; 80048; 80053; 81001; 83605; 83735; 84100; 84132; 85025; 85610; 85730; 87040; 87077; 87086; 87088; 87186; 87205; 93005; 96365; 96366; 96368; 96375; 99285; J0610; J0692; J0696; J1650; J3475; J3480; J7030; J7040